=== PATIENT | male | born 1945 | race Caucasian/White ===

== ENCOUNTER 2017-10-08 08:48 | Day surgery (SDC) | payer MEDICARE, OTHER, SELFPAY ==
[2017-10-08 09:03] VITALS: BP 129/73; PULSE 77; RESP 18; O2SAT 98; BMI 28.1
== END 2017-10-08 10:00 | disposition home or self-care (01) ==
LOC: EN 08:49 → AC 08:50
PROVIDERS: Family Provider Family Medicine; PCP Family Medicine; Visit Provider Surgery
PROC: F00ZJWZ Instrumental Swallowing and Oral Function Assessment using Swallowing Equipment (ICD-10-PCS; CPT 43235; principal; 2017-10-08 08:55)
DX: K21.9 Gastro-esophageal reflux disease without esophagitis (principal); I10 Essential (primary) hypertension; I44.1 Atrioventricular block, second degree; Z95.0 Presence of cardiac pacemaker; Z79.82 Long term (current) use of aspirin; Z79.899 Other long term (current) drug therapy
CPT/HCPCS: 91010

== ENCOUNTER 2017-10-23 06:26 | Day surgery (SDC) | payer MEDICARE, OTHER, SELFPAY ==
[2017-10-23] VITALS (7 sets, daily range): BP systolic 115–128; BP diastolic 70–81; PULSE 62–70; RESP 16; TEMP 35.9–36.4; O2SAT 98–100; BMI 28.1
--- NOTE | 2017-10-23 | IMM_PTH ---
PATIENT: MOO ORTEZ LOC: EN U#:[id number] AGE/SX: 72/M ROOM: RE10/23/[address]: Dr. Richie Tan MD : 1945 BED: DIS: 10/23/2017 SPEC #: [id number] RECD: 10/26/17 11:42 STATUS: VIVEK RELizz #: [id number] ELOINA: 10/23/17 00:[address]: Richie Tan DEPT: IMMUNOHISTOCHEMISTRY RECD BY: Sydnie Echeverria ENTERED: 10/26/17 11:42 SP TYPE: IMMUNO OTHR DR: Dr. Joaquin Grady MD Tissues: B - Stomach, NOS Procedures: H Pylori (initial) PHYSICIAN & INSTITUTION [place] [id number] SPECIMEN INFORMATION: Tissue Source: B ? Antral biopsy Clinical Info: Screen Specimen Number: [id number] CPT code: 97097 METHODOLOGY: Deparaffinized sections of prefer/formalin-fixed tissue or PAP/DQ stained slides are incubated with monoclonal/polyclonal antibodies/oligonucleotide probes. Localization is made via biotin free immunoperoxidase method. Appropriate controls are performed and reacted as expected. Results on target cell population are indicated in the following table: RESULTS: ANTIBODY / CLONE RESULT Block B H Pylori (polyclonal) negative These tests were developed and their performance characteristics determined by [facility]. They may not have been cleared or approved by the U.S. Food and Drug Administration. The FDA has determined that such clearance or approval is not necessary. INTERPRETATION: B. Antral biopsy: Negative for Helicobacter pylori organisms. AM:puma 10/27/17
--- NOTE | 2017-10-23 07:43 | EGD_PTH ---
PATIENT: MOO ORTEZ LOC: EN U#:[id number] AGE/SX: 72/M ROOM: RE10/23/[address]: Dr. Richie Tan MD : 1945 BED: DIS: 10/23/2017 SPEC #: [id number] RECD: 10/23/17 11:11 STATUS: VIVEK FRANNIE #: [id number] ELOINA: 10/23/17 07:[address]: Richie Tan DEPT: SURGICAL PATHOLOGY RECD BY: Bryan Mack ENTERED: 10/23/17 12:15 SP TYPE: EGD BIOPSY OT DR: Dr. Joaquin Grady MD Tissues: A - Duodenum, NOS B - Gastric mucous membrane C - Gastric mucous membrane Procedures: Special Stain Group II Surgery Specimen Level IV Alcian Blue/PAS (control) HEADER OPERATION: EGD PRE-OP DIAGNOSIS: Screen TISSUE SUBMITTED: A ? Duodenal biopsy, B ? Antral biopsy, C ? Biopsy GE junction MICROSCOPIC DIAGNOSIS A. Duodenum, biopsy: No pathologic diagnosis. B. Gastric antrum, biopsy: Gastritis. C. Gastroesophageal junction, biopsy: Mild chronic inflammation. No evidence of intestinal metaplasia. AM:puma 10/26/17 COMMENT B. The results of immunohistochemistry for Helicobacter pylori will be reported separately ([id number]). C. Alcian blue/PAS stain with matched control supports the above diagnosis. MICROSCOPIC DESCRIPTION Slides are reviewed. B. Sections show small collections and groups of plasma cells in the mucosa. Active inflammation is not present. These findings are consistent with mild chronic gastritis. GROSS DESCRIPTION A - Received in fixative is one container labeled with the patient's name and designated duodenal biopsy. The specimen consists of two irregular fragments of light mendiola soft tissue that in aggregate measure 0.3 x 0.2 x 0.1 cm. The specimen is totally submitted in one cassette. B - Received in fixative is one container labeled with the patient's name and designated antral biopsy. The specimen consists of one irregular fragment of light mendiola soft tissue that measures 0.3 x 0.3 x 0.1 cm. The specimen is totally submitted in one cassette. C - Received in fixative is one container labeled with the patient's name and designated GE junction biopsy. The specimen consists of one irregular fragment of light mendiola soft tissue that measures 0.5 x 0.2 x 0.1 cm. The specimen is totally submitted in one cassette. / AM:puma 10/23/17 TC:3 CPT: 75105 x3, 48995
--- NOTE | 2017-10-23 08:14 | OP.PCM_ITS ---
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 Hiatal hernia. Schatzki ring. Antral gastritis Surgery/Procedure Performed:: Esophagogastroduodenoscopy with biopsies and hydrostatic dilatation and savory over the wire blue dilator dilatation Description of Surgical Findings:: Informed consent was obtained. 72-year-old gentleman was taken to the endoscopy suite. His oropharynx anesthetized with Cetacaine. He was placed in a left lateral decubitus position. Monitored anesthesia care was provided. Under direct utilization flexible gastroscope was inserted in the esophageal inlet. Proximal mid distal esophagus initially did not appear remarkable however in the distal esophagus at about 36-37 cm there appeared to be relative spasm or narrowing of the distal esophagus. Did not see any mucosal abnormalities. Once past that area there is evidence of a small hiatal hernia with findings suggesting reflux and a Schatzki ring. The scope was advanced into the stomach there was some mild erythema of the antrum. The scope was advanced into the duodenum. The duodenal mucosa appeared normal. Biopsies were obtained of the duodenum. The scope was withdrawn back into the stomach retroflexed. The EG junction and cardia inspected. A small hiatal hernia noted. Antral biopsy was obtained. The scope was withdrawn to the distal esophagus were photographs were obtained within the small hiatal hernia of the Schatzki ring. I took a biopsy of the ring. I then placed a 18 mm maximum dimension hydrostatic balloon. That balloon was inflated however it did not touch the boswell at the level of the Schatzki ring. I then removed that balloon. I inserted a wire under direct visitation in the stomach. I placed a 46 Turkmen and then a 48 Turkmen savory type blue dilator over the wire. On each pass of the 46 and the 48 I reinserted the gastroscope assuring no trauma. At the completion of that the area of relative spasm or or stricturing of the distal esophagus appeared not significantly different. There was scar tissue seen. Impression was that there is possibly extrinsic compression or spasm. I have elected to cease the intervention at this time to assess for patient postintervention symptoms. Devices were removed the patient tolerated procedure well there were no apparent complications. Impression findings suggest a distal esophageal spasm or extrinsic compression with a small hiatal hernia and reflux esophagitis and Schatzki ring. Antral gastritis. Biopsy results are pending. The patient will return the office in 10 days time. He has had esophageal manometry suggesting a relative area of narrowing or stricturing in the distal esophagus similar to what was seen on today's endoscopy although it did not appear to be a fixed defect. Further tertiary referral will be made if indicated. Cc: Dr. COURTNEY Grady Scope was inserted 0740. Procedure was completed at 0802. Richie Tan M.D., F.A.C.S. Type of Anesthesia:: MAC
== END 2017-10-23 09:05 | disposition home or self-care (01) ==
LOC: EN 06:27 → AC 06:28
PROVIDERS: Family Provider Family Medicine; PCP Family Medicine; Visit Provider Surgery
PROC: 0DJ08ZZ Inspection of Upper Intestinal Tract, Via Natural or Artificial Opening Endoscopic (ICD-10-PCS; CPT 43235; principal; 2017-10-23 07:25)
DX: K22.2 Esophageal obstruction (principal); K21.0 Gastro-esophageal reflux disease with esophagitis; K44.9 Diaphragmatic hernia without obstruction or gangrene; K29.70 Gastritis, unspecified, without bleeding; M19.90 Unspecified osteoarthritis, unspecified site; I10 Essential (primary) hypertension; I44.1 Atrioventricular block, second degree; I43 Cardiomyopathy in diseases classified elsewhere; K58.9 Irritable bowel syndrome, unspecified; Z86.69 Personal history of other diseases of the nervous system and sense organs; Z95.0 Presence of cardiac pacemaker; Z79.82 Long term (current) use of aspirin; Z79.899 Other long term (current) drug therapy
CPT/HCPCS: 43239; 43248; 43249; 88305; 88313; 88342; J7120; C1769

== ENCOUNTER → 2018-04-12 11:53 | Outpatient (CLI) | payer MEDICARE, OTHER, SELFPAY ==
--- NOTE | 2018-04-12 12:02 | RAD_ITS ---
STUDY: X-RAY - CERVICAL SPINE REASON FOR EXAM: Male, 73 years old. Neck pain and stiffness TECHNIQUE: 5 view(s) of the cervical spine were obtained. COMPARISON: None FINDINGS: Normal anterior atlantoaxial articulation. Normal odontoid process. There is straightening of the normal cervical lordosis. There is multi-level endplate spondylosis. There is multi-level degenerative disc disease with multilevel disc space narrowing. There is multi-level osseous foraminal stenosis. The soft tissue structures are unremarkable. RAD/Cerv Spine 4 or 5 Views IMPRESSION: Multilevel degenerative changes, no demonstrated fracture or suspicious osseous Electronically Signed: Vikram Ramirez MD at 17:50 EDT , Service support ,
== END ==
PROVIDERS: Family Provider Family Medicine; PCP Family Medicine; Visit Provider Family Medicine
DX: M54.2 Cervicalgia (principal)
CPT/HCPCS: 72050

== ENCOUNTER → 2018-05-13 09:42 | Outpatient (CLI) | payer MEDICARE, OTHER, SELFPAY ==
[2018-05-13 10:51] LABS: Anion Gap 8 (5-15); BUN 18 mg/dL (7-18); BUN/Creat Ratio 21.1 RATIO (10-20); Calcium,Total 8.9 mg/dL (8.5-10.1); Chloride 104 mmol/L (98-107); Cholesterol 190 mg/dL (200); Creatinine, Serum 0.86 mg/dL (0.70-1.30); EST Glomerular Filtration Rate 94 mL/min (>60); Est Glom Filt Rate - Afr Amer 113 mL/min (>60); Glucose 97 mg/dL (74-106); High Density Lipoprotein 52 mg/dL; PSA,Total - Annual Screen 1.94 ng/mL (0.00-4.00); Potassium 4.1 mmol/L (3.5-5.1); Sodium Level 140 mmol/L (136-145); Triglycerides 82 mg/dL; Very Low Density Lipoprotein 16 mg/dL (5-40)
== END ==
PROVIDERS: Family Provider Family Medicine; PCP Family Medicine; Visit Provider Family Medicine
DX: I10 Essential (primary) hypertension (principal); E78.00 Pure hypercholesterolemia, unspecified; Z12.5 Encounter for screening for malignant neoplasm of prostate
CPT/HCPCS: 36415; 80048; 80061; 84153; G0103

== ENCOUNTER 2018-07-09 07:54 | Day surgery (SDC) | payer MEDICARE, OTHER, SELFPAY ==
[2018-07-09] VITALS (9 sets, daily range): BP systolic 93–147; BP diastolic 56–122; PULSE 64–72; RESP 14–16; TEMP 36–36.4; O2SAT 98–100; BMI 27.4
--- NOTE | 2018-07-09 | COLBX_PTH ---
PATIENT: MOO ORTEZ LOC: EN U#:[id number] AGE/SX: 73/M ROOM: RE07/09/[address]: Dr. Richie Tan MD : 1945 BED: DIS: 07/09/2018 SPEC #: [id number] RECD: 07/09/18 13:11 STATUS: VIVEK FRANNIE #: [id number] ELOINA: 07/09/18 00:[address]: Richie Tan DEPT: SURGICAL PATHOLOGY RECD BY: Zach Hatch ENTERED: 07/09/18 13:12 SP TYPE: COLON BX OT DR: Dr. Joaquin Grady MD Tissues: Descending colon Procedures: Surgery Specimen Level IV HEADER OPERATION: Colonoscopy PRE-OP DIAGNOSIS: Screening TISSUE SUBMITTED: Descending colon polyp biopsy MICROSCOPIC DIAGNOSIS Descending colon polyp, biopsy: Fragments of tubular adenoma. SJ:puma 07/12/18 MICROSCOPIC DESCRIPTION Slides are reviewed. GROSS DESCRIPTION Received in fixative is one container labeled with the patient's name and designated descending colon polyp biopsy. The specimen consists of multiple irregular fragments of light mendiola soft tissue that in aggregate measure 1 x 0.4 x 0.1 cm. The specimen is totally submitted in one cassette. / SJ:puma 07/09/18 TC:1 CPT: 99590
--- NOTE | 2018-07-09 09:20 | PCM.HP.STD ---
History of Present Illness Date of Admission: 07/09/18 The patient is a 73 year old M screening for intestinal malignancy. His most recent colonoscopy was 10 years ago. He denies bright red blood per rectum or melena. No abdominal pain. He has no family history of colon cancer. He does have a pacemaker in place. It has been there for 3 years. He typically takes a low-dose aspirin. He has not been on aspirin for 5 days. Past Medical History Past Medical History (Chronic Problems): Chronic Problems (Last Reviewed 10/30/17 @ 10:05 by Celia Diaz) Sinus bradycardia (Chronic) Hypertension (Chronic) Mobitz type II atrioventricular block (Chronic) Cardiac pacemaker in situ (Chronic) Implanted 07/13/15 @ [place], [place] per Dr. 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 classified elsewhere (Chronic) I43 Allergies No Known Allergies Allergy (Verified 07/07/18 09:59) Home Medications: Ambulatory Orders Medication Instructions Recorded Aspirin [Aspirin, Baby] 81 mg PO DAILY@0800 08/05/15 ALPRAZolam [Xanax] 0.5 mg PO QHS 12/07/15 Carvedilol [Coreg] 6.25 mg PO BID 12/07/15 Cholecalciferol (VIT D3) [Vitamin 1,000 unit PO DAILY 12/07/15 D] Multivitamins,Ther W-Minerals 1 tab PO DAILY 12/07/15 [Multivitamin With Minerals] Tamsulosin HCl [Flomax] 0.4 mg PO QHS 10/21/17 losartan 25 mg tablet 25 mg PO QDAY #90 tab 02/10/18 Ranitidine [Zantac] 150 mg PO DAILY 07/07/18 Surgical History: Surgical History (Last Updated 10/30/17 @ 10:06 by Celia Diaz) History of esophagogastroduodenoscopy (EGD) (Acute) Z98.890 S/P hernia surgery (Acute) Z98.890, Z87.19 x 2 Cardiac pacemaker in situ (Chronic) Z95.0 Implanted 07/13/15 @ [place], [place] per Dr. Lr for Mobitz type II block Smoking Status: Never smoker Review of Systems Constitutional: Denies: Anorexia HEENT: Denies: Difficulty Swallowing Cardiovascular: Denies: Chest Pain Respiratory: Denies: Cough Gastrointestinal: Denies: Abdominal Pain Endocrine: Denies: Change in Body Habitus VTE Information - Inpt Only VTE Present on Admission: No - Physical Exam General: Alert, Oriented x3, Cooperative, No apparent distress HEENT: Atraumatic Oral: Moist Mucosa Neck: Supple Lungs: Clear to auscultation Cardiovascular: Regular rate, Regular Rhythm Abdomen: Bowel Sounds Present, Soft, Non Tender Extremities: No Calf Tenderness Skin: No rashes Musculoskeletal: No Tenderness to Palpation of Joints or Extremities Neurological: Cranial nerves II-XII grossly intact Psych/Mental Status: Normal Affect Vital Signs Temp Pulse Resp BP Pulse Ox 97.3 F L 72 14 119/68 99 07/09/18 08:24 07/09/18 08:24 07/09/18 08:24 07/09/18 08:24 07/09/18 08:24 Oxygen Delivery Method Room Air Weight: 180 lb 12.465 oz Body Mass Index (BMI) 27.4 Assessment/Plan All Active Problems (Last Updated 10/30/17 @ 10:06 by Celia Diaz) Schatzki's ring of distal esophagus (Acute) History of esophagogastroduodenoscopy (EGD) (Acute) Orantes's palsy (Acute) S/P hernia surgery (Acute) Plan to proceed with a colonoscopy with possible biopsy or polypectomy is indicated. He has had an opportunity to ask and have questions answered. We will proceed as noted. He presents via our open access program today. Richie Tan M.D., F.A.C.S.
--- NOTE | 2018-07-09 09:56 | OP.ENDO_ITS ---
Patient Name: Jonah Horowitz Procedure Date: 07/09/2018 9:23 AM Date of : 1945 Age: 73 Procedure: Colonoscopy Indications: Screening for colorectal malignant neoplasm Providers: Richie Tan MD Referring MD: Richie Tan MD Medicines: Midazolam 3.5 mg IV, Meperidine 75 mg IV Patient Profile: Last Colonoscopy: 10 years ago. Complications: No immediate complications. Procedure: Pre-Anesthesia Assessment: - Prior to the procedure, a History and Physical was performed, and patient medications and allergies were reviewed. The patient's tolerance of previous anesthesia was also reviewed. The risks and benefits of the procedure and the sedation options and risks were discussed with the patient. All questions were answered, and informed consent was obtained. Prior Anticoagulants: The patient has taken aspirin, last dose was day of procedure. ASA Grade Assessment: II - A patient with mild systemic disease. After reviewing the risks and benefits, the patient was deemed in satisfactory condition to undergo the procedure. After I obtained informed consent, the scope was passed under direct vision. Throughout the procedure, the patient's blood pressure, pulse, and oxygen saturations were monitored continuously. The pediatric colonoscope was introduced through the anus and advanced to the cecum, identified by appendiceal orifice and ileocecal valve. The colonoscopy was performed without difficulty. The patient tolerated the procedure well. The quality of the bowel preparation was good. The ileocecal valve was photographed. Moderate Sedation: Moderate (conscious) sedation was personally administered by the endoscopist. The following parameters were monitored: oxygen saturation, heart rate, blood pressure, and response to care. Total physician intraservice time was 15 minutes. Scope In: 9:39:25 AM Scope Withdrawal Time 0 hours 7 minutes 51 seconds Scope Out: 9:50:24 AM Total Procedure Duration Time 0 hours 10 minutes 59 seconds Findings: The digital rectal exam findings include internal hemorrhoids that prolapse with straining, but require manual replacement into the anal canal (Grade III) and enlarged prostate. A 5 mm polyp was found in the descending colon. The polyp was sessile. The polyp was removed with a cold biopsy forceps. Resection and retrieval were complete. Multiple diverticula were found in the sigmoid colon. The exam was otherwise without abnormality. Impression: - Internal hemorrhoids that prolapse with straining, but require manual replacement into the anal canal (Grade III) and enlarged prostate found on digital rectal exam. - One 5 mm polyp in the descending colon, removed with a cold biopsy forceps. Resected and retrieved. - Diverticulosis in the sigmoid colon. - The examination was otherwise normal. Recommendation: - Discharge patient to home. - Resume previous diet. - Continue present medications. - Repeat colonoscopy in 5 years for surveillance. - Telephone my office for pathology results in 1 week. Procedure Code(s): --- Professional --- 92886, Colonoscopy, flexible; with biopsy, single or multiple 42418, 59, Moderate sedation services provided by the same physician or other qualified health home health care provider performing the diagnostic or therapeutic service that the sedation supports, requiring the presence of an independent trained observer to assist in the monitoring of the patient's level of consciousness and physiological status; initial 15 minutes of intraservice time, patient age 5 years or older Diagnosis Code(s): --- Professional --- Z12.11, Encounter for screening for malignant neoplasm of colon D12.4, Benign neoplasm of descending colon K64.2, Third degree hemorrhoids N40.0, Benign prostatic hyperplasia without lower urinary tract symptoms K57.30, Diverticulosis of large intestine without perforation or abscess without bleeding CPT copyright 2017 [employer]. All rights reserved. The codes documented in this report are preliminary and upon medical biller/coder review may be revised to meet current compliance requirements. Richie Tan MD 07/09/2018 9:55:47 AM This report has been signed electronically. Number of Addenda: 0 Note Initiated On: 07/09/2018 9:23 AM
== END 2018-07-09 11:05 | disposition home or self-care (01) ==
LOC: EN 07:54 → AC 07:57
PROVIDERS: Family Provider Family Medicine; PCP Family Medicine; Referring Provider Surgery; Visit Provider Surgery
PROC: 0DJD8ZZ Inspection of Lower Intestinal Tract, Via Natural or Artificial Opening Endoscopic (ICD-10-PCS; CPT 45378; principal; 2018-07-09 08:55)
DX: Z12.11 Encounter for screening for malignant neoplasm of colon (principal); D12.4 Benign neoplasm of descending colon; K64.2 Third degree hemorrhoids; K57.30 Diverticulosis of large intestine without perforation or abscess without bleeding; N40.0 Benign prostatic hyperplasia without lower urinary tract symptoms; K22.2 Esophageal obstruction; I10 Essential (primary) hypertension; I44.1 Atrioventricular block, second degree; I42.9 Cardiomyopathy, unspecified; Z95.0 Presence of cardiac pacemaker; Z79.82 Long term (current) use of aspirin; Z79.899 Other long term (current) drug therapy
CPT/HCPCS: 45380; 88305; 99152; 99153; J7120

== ENCOUNTER → 2018-08-26 20:17 | Outpatient (CLI) | payer MEDICARE, OTHER, SELFPAY ==
[2018-07-28 10:04] VITALS: BMI 28.1
== END ==
PROVIDERS: Family Provider Family Medicine; PCP Family Medicine; Visit Provider Family Medicine
DX: G47.00 Insomnia, unspecified (principal); G47.9 Sleep disorder, unspecified
CPT/HCPCS: 95810

== ENCOUNTER → 2018-09-30 20:32 | Outpatient (CLI) | payer MEDICARE, OTHER, SELFPAY ==
[2018-09-09 11:22] VITALS: BMI 28.1
[2018-09-30 11:22] VITALS: BMI 28.5
== END ==
PROVIDERS: Family Provider Family Medicine; PCP Family Medicine; Referring Provider Nurse Practitioner Acute Care; Visit Provider Nurse Practitioner Acute Care
DX: G47.33 Obstructive sleep apnea (adult) (pediatric) (principal)
CPT/HCPCS: 95811

== ENCOUNTER → 2018-12-31 | Outpatient (CLI) | payer MEDICARE, OTHER, SELFPAY ==
[2018-11-05 10:34] VITALS: BMI 28.5
[2018-12-23 10:54] VITALS: BMI 28.1
--- NOTE | 2018-12-31 07:00 | RAD_ITS ---
CLINICAL HISTORY: Male, 73 years old. Chronic knee pain. PROCEDURE: ARTHROGRAM - LEFT KNEE FLUOROSCOPY TIME (if supplied): (0:50) minutes/seconds Injection Information: 10 cc of dilute MRI contrast. Number of images obtained: 1 TECHNIQUE: (All elements of maximal sterile barrier technique followed, including US elements as applicable) The procedure as well as the benefits and possible complications including infection and bleeding were explained to the patient. Informed consent was obtained. The overlying skin was prepped and draped in the usual sterile fashion. Under direct fluoroscopic guidance, a 22-gauge spinal needle was placed into the knee joint. 2 cc of Isovue-300 was injected for confirmation. Following this, 10 cc of dilute Magnevist was injected. A CT arthrogram will be obtained. The patient tolerated the procedure well. RAD/Arthrogram Hip IMPRESSION: Successful left knee arthrogram for CT examination. Electronically Signed: Jerson Bhatt, at 13:56 EDT , Service support ,
--- NOTE | 2018-12-31 10:00 | CT_ITS ---
STUDY: CT LEFT KNEE WITH CONTRAST REASON FOR EXAM: Male, 73 years old. Left knee arthrogram. Pain. RADIATION DOSAGE (If Supplied By Facility): CTDIvol = ( 15.35 ) mGy, DLP = ( 438.19 ) mGycm TECHNIQUE: Transaxial CT imaging of the knee was performed post contrast administration. The examination was performed with intravenous administration of 10ML Intra-articular Other. Individualized dose optimization techniques were used for this CT. COMPARISON: None. FINDINGS: Normal medial femoral condyle and medial tibial plateau. There is preservation of the articular joint space of the medial knee compartment. No evidence of contrast extension into the bilateral menisci to suggest underlying meniscal tear. The outline of the ACL and PCL are noted and intact, however there are subchondral cysts at the proximal attachment of the ACL tendon near the medial intracarpal enteric region consistent with likely previous injury. Normal lateral femoral condyle and lateral tibial plateau. There is preservation of the articular joint space of the lateral knee compartment. Normal proximal tibiofibular articulation. Intra-articular contrast within the joint space is present. There is no demonstrated abnormal enhancement. The quadriceps tendon is grossly normal. The patellar tendon is grossly normal. Normal Hoffa's fat pad. The soft tissues are unremarkable. CT/Extremity Lower WITH Contrast IMPRESSION: The arthrogram demonstrating no evidence of underlying meniscal tear with extension of contrast into the intrasubstance. The outline of the ACL tendon is normal in appearance. No significant joint space loss or osteophyte formation is present. Subchondral cysts near the ACL proximal attachment with previous injury not excluded, clinically correlate. Electronically Signed: Alvaro Price DO at 9:25 EDT , Service support ,
== END | disposition home or self-care (01) ==
LOC: RAD 09:50
PROVIDERS: Family Provider Family Medicine; PCP Family Medicine; Referring Provider Physician Assistant Surgical; Visit Provider Physician Assistant Surgical
DX: M17.12 Unilateral primary osteoarthritis, left knee (principal); M25.562 Pain in left knee
CPT/HCPCS: 27093; 27369; 73525; 73580; 73701; A9577; Q9967

== ENCOUNTER → 2019-04-18 | Outpatient (CLI) | payer MEDICARE, OTHER, SELFPAY ==
[2019-03-24 09:47] VITALS: BMI 28.1
[2019-04-18 12:28] LABS: Hematocrit 38.4 % (40-54); Hemoglobin 12.5 g/dL (13.0-16.5); Mean Corp Hgb Conc 32.6 g/dL (32-36); Mean Corpuscular Hgb 31.1 pg (27.0-32.0); Mean Corpuscular Volume 95.5 fL (80-94); Red Blood Count 4.02 M/mm3 (4.6-6.2); White Blood Count 4.5 K/mm3 (4.4-11.0)
[2019-04-18 12:29] LABS: Absolute Neutrophil Count 2.6 X10^3/uL (2.0-7.7); Basophil# 0.04 X10^3/uL; Basophil% 0.9 % (0-1); Eosinophil# 0.13 X10^3/uL; Eosinophils% 2.9 % (0-5); Lymphocyte % 26.5 % (19-41); Mean Platelet Vol. 11.1 fl (6.2-12.0); Monocyte# 0.58 X10^3/uL; Monocyte% 12.8 % (0-10); NRBC Flagged by Analyzer 0 % (0-5); Neutrophil # 2.57 X10^3/uL (2.7-7.7); Neutrophil % 56.7 % (47-70); Platelet Count 319 K/mm3 (150-450); RBC Distribution Width CV 14.9 % (11.6-14.6); RBC Distribution Width SD 53.1 fl (35.1-43.9)
[2019-04-18 13:01] LABS: Anion Gap 4 (5-15); BUN 14 mg/dL (7-18); BUN/Creat Ratio 17.8 RATIO (10-20); Calcium,Total 8.9 mg/dL (8.5-10.1); Chloride 105 mmol/L (98-107); Cholesterol 185 mg/dL (200); Creatinine, Serum 0.79 mg/dL (0.70-1.30); EST Glomerular Filtration Rate 103 mL/min (>60); Est Glom Filt Rate - Afr Amer 124 mL/min (>60); Glucose 105 mg/dL (74-106); High Density Lipoprotein 44 mg/dL; Potassium 4.4 mmol/L (3.5-5.1); Sodium Level 138 mmol/L (136-145); Triglycerides 83 mg/dL; Very Low Density Lipoprotein 17 mg/dL (5-40)
== END | disposition home or self-care (01) ==
LOC: MFPLAB 11:01
PROVIDERS: Family Provider Family Medicine; PCP Family Medicine; Visit Provider Family Medicine
DX: I10 Essential (primary) hypertension (principal); N49.0 Inflammatory disorders of seminal vesicle
CPT/HCPCS: 36415; 80048; 80061; 85025

== ENCOUNTER → 2019-08-01 15:37 | Outpatient (CLI) | payer MEDICARE, OTHER, SELFPAY ==
[2019-03-24 09:47] VITALS: BMI 28.1
== END ==
PROVIDERS: Family Provider Family Medicine; PCP Family Medicine; Visit Provider Family Medicine
DX: G47.00 Insomnia, unspecified (principal)

== ENCOUNTER → 2019-08-03 11:40 | Outpatient (CLI) | payer MEDICARE, OTHER, SELFPAY ==
[2019-03-24 09:47] VITALS: BMI 28.1
[2019-08-03 15:37] LABS: Amphetamine Urine VISTA NEGATIVE (<1000 ng/mL); Barbiturate Urine VISTA NEGATIVE (< 200 ng/mL); Benzodiazepine Urine VISTA POSITIVE (< 200 ng/mL); Cocaine Urine VISTA NEGATIVE (< 300 ng/mL); Ecstacy Urine VISTA NEGATIVE (< 500 ng/mL); Methadone Urine VISTA NEGATIVE (< 300 ng/mL); PCP Urine VISTA NEGATIVE (< 25 ng/mL); THC Urine VISTA NEGATIVE (< 50 ng/mL); Vista UDS pH Range 7
== END ==
PROVIDERS: Family Provider Family Medicine; PCP Family Medicine; Referring Provider Family Medicine; Visit Provider Family Medicine
DX: G47.00 Insomnia, unspecified (principal)
CPT/HCPCS: 80307; 80346

== ENCOUNTER → 2019-09-23 16:21 | Outpatient (CLI) | payer MEDICARE, OTHER, SELFPAY ==
[2019-03-24 09:47] VITALS: BMI 28.1
--- NOTE | 2019-09-23 16:29 | CT_ITS ---
STUDY: CT LUMBAR SPINE WITHOUT CONTRAST REASON FOR EXAM: Male, 74 years old. Back pain RADIATION DOSAGE (If Supplied By Facility): CTDIvol = ( 23.32 ) mGy, DLP = ( 934.21 ) mGycm TECHNIQUE: CT of the lumbar spine was performed without contrast. Sagittal and coronal images were reconstructed. Individualized dose optimization techniques were used for this CT. COMPARISON: None FINDINGS: Examination is moderately degraded due to patient''s elevated body habitus resulting in severe image noise due to soft tissue attenuation. Osseous assessment is moderately degraded. Soft tissue assessment is severely degraded and canal contents cannot be assessed reliably. Pacemaker leads are seen in the heart. Lumbar spine is aligned. There are multilevel endplate degenerative changes and limbus L4 vertebra variant. There are no fractures or osseous destructive lesions. Mineralization is normal. Paraspinous soft tissues are intact. SI joints are normal. There is sigmoid diverticulosis. There is left inguinal hernia repair. There is probably multilevel moderate thecal sac stenosis. There are multilevel bilateral moderate foraminal stenoses. CT/Spine Lumbar without Contrast IMPRESSION: 1. Technical limitations to the scan due to elevated body habitus. 2. No acute osseous findings. 3. Spondylosis. 4. Probable multilevel moderate thecal sac stenosis. Electronically Signed: Izabela Price, at 18:55 EST Tel , Service support ,
== END ==
PROVIDERS: Family Provider Family Medicine; PCP Family Medicine; Referring Provider Family Medicine; Visit Provider Family Medicine
DX: M54.5 Low back pain (principal)
CPT/HCPCS: 72131

== ENCOUNTER → 2020-02-08 15:56 | Outpatient (CLI) | payer MEDICARE, OTHER, SELFPAY ==
[2019-11-24 10:41] VITALS: BMI 28.3
--- NOTE | 2020-02-08 16:00 | RAD_ITS ---
STUDY: X-RAY - RIGHT FOOT CLINICAL: Male, 75 years old. Right foot pain, bottom of foot by 1st and 2nd toes TECHNIQUE: 3 view(s) of the foot. COMPARISON: None. FINDINGS: There is an enthesophyte involving the posterior superior calcaneus at the site of insertion of the Achilles tendon. Small plantar spur. Normal visualized subtalar, talonavicular, calcaneocuboid, tarsal and tarsometatarsal articulations. Normal metatarsi. There is degenerative arthrosis of the metatarsophalangeal joint of the hallux . Spur formation is seen along the fibular aspect of the proximal phalanx of the great toe. Normal tibial and fibular sesamoid bones. Normal interphalangeal joint of the great toe. Normal phalanges of the great toe. Normal second through fifth metatarsophalangeal joints. Normal interphalangeal joints and phalanges of the lesser toes. The soft tissue structures are unremarkable. RAD/Foot min 3 Views IMPRESSION: Degenerative changes at the first metatarsophalangeal joint with degenerative spur formation at the base of the proximal phalanx of the great toe. Electronically Signed: Jerson Bhatt, at 15:21 EDT , Service support ,
== END ==
PROVIDERS: PCP Family Medicine; Referring Provider Podiatrist; Visit Provider Podiatrist
DX: M77.9 Enthesopathy, unspecified (principal)
CPT/HCPCS: 73630

== ENCOUNTER → 2020-03-05 11:46 | Outpatient (CLI) | payer MEDICARE, OTHER, SELFPAY ==
[2019-11-24 10:41] VITALS: BMI 28.3
[2020-03-05 15:58] LABS: Absolute Lymphocyte Count 1.23 X10^3/uL (0.83-4.51); Absolute Neutrophil Count 2.9 X10^3/uL (2.0-7.7); Basophil# 0.03 X10^3/uL; Basophil% 0.6 % (0-1); Eosinophil# 0.09 X10^3/uL; Eosinophils% 1.8 % (0-5); Hematocrit 41.6 % (40-54); Hemoglobin 13.2 g/dL (13.0-16.5); Lymphocyte # 1.23 X10^3/ul (4.0); Lymphocyte % 24.5 % (19-41); Mean Corp Hgb Conc 31.7 g/dL (32-36); Mean Corpuscular Hgb 31.4 pg (27.0-32.0); Mean Platelet Vol. 11.6 fl (6.2-12.0); Monocyte# 0.73 X10^3/uL; Monocyte% 14.5 % (0-10); NRBC Flagged by Analyzer 0 % (0-5); Neutrophil # 2.94 X10^3/uL (2.7-7.7); Neutrophil % 58.4 % (47-70); Platelet Count 218 K/mm3 (150-450); RBC Distribution Width CV 13.2 % (11.6-14.6); RBC Distribution Width SD 48.1 fl (35.1-43.9)
[2020-03-05 16:22] LABS: Anion Gap 4 (5-15); BUN 16 mg/dL (7-18); BUN/Creat Ratio 20.6 RATIO (10-20); Chloride 104 mmol/L (98-107); Creatinine, Serum 0.78 mg/dL (0.70-1.30); EST Glomerular Filtration Rate 104 mL/min (>60); Est Glom Filt Rate - Afr Amer 126 mL/min (>60); Glucose 76 mg/dL (74-106); Potassium 4.3 mmol/L (3.5-5.1); Sodium Level 141 mmol/L (136-145); T4 Free Direct 0.96 ng/dL (0.76-1.46); Thyroid Stim Hormone (TSH) 2.03 uIU/mL (0.358-3.74)
[2020-06-01 13:04] LABS: ALB/GLOB Ratio 1.1 RATIO (0.9-2.4); AST(SGOT) 20 U/L (15-37); Alanine Aminotransfer ALT/SGPT 22 U/L (16-61); Albumin, Serum 3.7 g/dL (3.2-5.0); Alkaline Phosphatase 99 U/L (45-117); Anion Gap 6 (5-15); BUN 12 mg/dL (7-18); BUN/Creat Ratio 15.9 RATIO (10-20); Calcium,Total 8.6 mg/dL (8.5-10.1); Chloride 105 mmol/L (98-107); Cholesterol 192 mg/dL (200); Creatinine, Serum 0.76 mg/dL (0.70-1.30); EST Glomerular Filtration Rate 107 mL/min (>60); Est Glom Filt Rate - Afr Amer 130 mL/min (>60); Globulin 3.5 g/dL (2.2-4.2); Glucose 90 mg/dL (74-106); High Density Lipoprotein 57 mg/dL; PSA,Total - Annual Screen 2.32 ng/mL (0.00-4.00); Potassium 4.1 mmol/L (3.5-5.1); Protein, Total 7.2 g/dL (6.4-8.2); Sodium Level 142 mmol/L (136-145); Triglycerides 59 mg/dL; Very Low Density Lipoprotein 12 mg/dL (5-40)
== END ==
PROVIDERS: PCP Family Medicine; Referring Provider Nurse Practitioner Family; Visit Provider Nurse Practitioner Family
DX: R53.83 Other fatigue (principal)
CPT/HCPCS: 36415; 80048; 80053; 80061; 84153; 84439; 84443; 85025; G0103

== ENCOUNTER → 2020-06-01 | Outpatient (CLI) | payer MEDICARE, OTHER, SELFPAY ==
[2020-03-22 10:40] VITALS: BMI 28.1
[2020-06-01 12:33] LABS: Erythrocyte Sedimentation Rate 5 mm/hr (0-20)
[2020-06-01 12:36] LABS: CRP < 2.90 mg/L (0.0-3.0); Rheumatoid Factor < 10.0 IU/mL (<15)
[2020-06-04 20:55] LABS: ANTINUCLEAR ANTIBODIES DIRECT Negative (Negative)
== END | disposition home or self-care (01) ==
LOC: MTLAB 09:58
PROVIDERS: PCP Family Medicine; Referring Provider Family Medicine; Visit Provider Family Medicine
DX: M25.549 Pain in joints of unspecified hand (principal)
CPT/HCPCS: 36415; 85652; 86038; 86140; 86431

== ENCOUNTER → 2020-07-23 14:48 | Outpatient (CLI) | payer MEDICARE, OTHER, SELFPAY ==
[2020-03-22 10:40] VITALS: BMI 28.1
--- NOTE | 2020-07-23 15:07 | RAD_ITS ---
STUDY: X-RAY RIGHT FOOT, 1 TOE REASON FOR EXAM: Male, 75 years old. right great toe pain TECHNIQUE: 3 view(s) of the toe were obtained. COMPARISON: 02/08/2020 FINDINGS: Normal visualized metatarsus. There is arthrosis of the metatarsophalangeal (M.T.P.) joint. Normal interphalangeal joints. Normal phalanges and interphalangeal joints. The soft tissue structures are unremarkable. RAD/Toe(s) Min 2 Views IMPRESSION: Mild first metatarsophalangeal joint arthrosis. Electronically Signed: Bryan Pepe MD at 15:47 EST Tel , Service support ,
--- NOTE | 2020-07-23 15:07 | RAD_ITS ---
STUDY: X-RAY - RIGHT FOOT CLINICAL: Male, 75 years old. right great toe pain TECHNIQUE: 2 view(s) of the foot. COMPARISON: 02/08/2020 FINDINGS: Normal talus, calcaneus, and tarsal bones. Normal visualized subtalar, talonavicular, calcaneocuboid, tarsal and tarsometatarsal articulations. Normal metatarsi. There is degenerative arthrosis of the metatarsophalangeal joint of the hallux . Normal tibial and fibular sesamoid bones. Normal interphalangeal joint of the great toe. Normal phalanges of the great toe. Normal second through fifth metatarsophalangeal joints. Normal interphalangeal joints and phalanges of the lesser toes. The soft tissue structures are unremarkable. RAD/Foot 2 Views IMPRESSION: Mild first metatarsophalangeal joint arthrosis. Electronically Signed: Bryan Pepe MD at 15:46 EST Tel , Service support ,
[2020-07-23 18:22] LABS: Uric Acid 4.4 mg/dL (3.5-7.2)
== END ==
PROVIDERS: PCP Family Medicine; Referring Provider Family Medicine; Visit Provider Family Medicine
DX: M79.674 Pain in right toe(s) (principal)
CPT/HCPCS: 36415; 73620; 73660; 84550

== ENCOUNTER → 2020-11-30 10:33 | Outpatient (CLI) | payer MEDICARE, OTHER, SELFPAY ==
[2020-09-27 08:56] VITALS: BMI 26.6
[2020-11-30 12:38] LABS: PSA,Total- Diagnostic 2.33 ng/mL (0.0-4.0)
== END ==
PROVIDERS: PCP Family Medicine; Referring Provider Family Medicine; Visit Provider Family Medicine
DX: R36.1 Hematospermia (principal)
CPT/HCPCS: 36415; 84153

== ENCOUNTER → 2020-12-05 11:31 | Outpatient (CLI) | payer MEDICARE, OTHER, SELFPAY ==
[2020-09-27 08:56] VITALS: BMI 26.6
[2020-12-05 12:29] LABS: Hematocrit 41.9 % (40-54); Hemoglobin 13.5 g/dL (13.0-16.5); Mean Corp Hgb Conc 32.2 g/dL (32-36); Mean Corpuscular Hgb 31.2 pg (27.0-32.0); Mean Corpuscular Volume 96.8 fL (80-94); Mean Platelet Vol. 11.1 fl (6.2-12.0); Platelet Count 213 K/mm3 (150-450); RBC Distribution Width CV 13.2 % (11.6-14.6); RBC Distribution Width SD 47.1 fl (35.1-43.9); Red Blood Count 4.33 M/mm3 (4.6-6.2); White Blood Count 5.2 K/mm3 (4.4-11.0)
[2020-12-05 13:17] LABS: Anion Gap 4 (5-15); BUN 16 mg/dL (7-18); BUN/Creat Ratio 19.7 RATIO (10-20); Calcium,Total 9.3 mg/dL (8.5-10.1); Chloride 105 mmol/L (98-107); Creatinine, Serum 0.81 mg/dL (0.70-1.30); EST Glomerular Filtration Rate 99 mL/min (>60); Est Glom Filt Rate - Afr Amer 119 mL/min (>60); Glucose 90 mg/dL (74-106); Potassium 4.2 mmol/L (3.5-5.1); Sodium Level 141 mmol/L (136-145)
== END ==
LOC: LAB.FUTURE 11:33 → LAB 13:32
PROVIDERS: PCP Family Medicine; Referring Provider Specialist; Visit Provider Specialist
DX: Z01.818 Encounter for other preprocedural examination (principal)
CPT/HCPCS: 36415; 80048; 85027

== ENCOUNTER → 2021-03-21 12:23 | Outpatient (CLI) | payer MEDICARE, OTHER, SELFPAY ==
[2020-09-27 08:56] VITALS: BMI 26.6
--- NOTE | 2021-03-21 12:28 | RAD_ITS ---
STUDY: X-RAY - LEFT ANKLE REASON FOR EXAM: Male, 76 years old. LT ANKLE SWELLING TECHNIQUE: 3 view(s) of the ankle. COMPARISON: None. FINDINGS: Normal visualized distal tibia and fibula. Normal medial and lateral malleoli. Normal tibiotalar articulation and ankle mortise. Plantar spur. The visualized subtalar, talonavicular, calcaneocuboid and tarsal articulations are normal. Soft tissue swelling. RAD/Ankle min 3 Views IMPRESSION: Soft tissue swelling. Plantar spur. Electronically Signed: Jerson Bhatt MD at 15:17 EDT , Service support ,
== END ==
PROVIDERS: PCP Family Medicine; Referring Provider Family Medicine; Visit Provider Family Medicine
DX: M25.472 Effusion, left ankle (principal)
CPT/HCPCS: 73610

== ENCOUNTER → 2021-07-20 10:08 | Outpatient (CLI) | payer MEDICARE, OTHER, SELFPAY ==
[2021-07-20 10:53] LABS: Anion Gap 1 (5-15); BUN 22 mg/dL (7-18); BUN/Creat Ratio 25.6 RATIO (10-20); Calcium,Total 9.1 mg/dL (8.5-10.1); Chloride 108 mmol/L (98-107); Creatinine, Serum 0.86 mg/dL (0.70-1.30); EST Glomerular Filtration Rate 92 mL/min (>60); Est Glom Filt Rate - Afr Amer 112 mL/min (>60); Glucose 86 mg/dL (74-106); Potassium 4.5 mmol/L (3.5-5.1); Sodium Level 140 mmol/L (136-145)
== END ==
PROVIDERS: PCP Family Medicine; Visit Provider Nurse Practitioner Family
DX: G47.33 Obstructive sleep apnea (adult) (pediatric) (principal); I10 Essential (primary) hypertension; I44.1 Atrioventricular block, second degree; I44.7 Left bundle-branch block, unspecified; I47.2 Ventricular tachycardia; I48.92 Unspecified atrial flutter; R00.1 Bradycardia, unspecified; Z95.0 Presence of cardiac pacemaker
CPT/HCPCS: 36415; 80048; 83735

== ENCOUNTER → 2021-07-24 09:50 | Outpatient (CLI) | payer MEDICARE, OTHER, SELFPAY ==
[2021-07-24 12:22] LABS: Absolute Lymphocyte Count 1.38 X10^3/uL (0.83-4.51); Absolute Neutrophil Count 2.8 X10^3/uL (2.0-7.7); Basophil# 0.06 X10^3/uL; Basophil% 1.2 % (0-1); Eosinophil# 0.23 X10^3/uL; Eosinophils% 4.5 % (0-5); Hematocrit 41.2 % (40-54); Hemoglobin 13.6 g/dL (13.0-16.5); Lymphocyte # 1.38 X10^3/ul (0.83-4.51); Mean Corpuscular Hgb 31.4 pg (27.0-32.0); Mean Corpuscular Volume 95.2 fL (80-94); Mean Platelet Vol. 11.6 fl (6.2-12.0); Monocyte# 0.62 X10^3/uL; Monocyte% 12.1 % (0-10); NRBC Flagged by Analyzer 0 % (0-5); Neutrophil # 2.82 X10^3/uL (2.7-7.7); Platelet Count 235 K/mm3 (150-450); RBC Distribution Width CV 13.7 % (11.6-14.6); RBC Distribution Width SD 48.8 fl (35.1-43.9); Red Blood Count 4.33 M/mm3 (4.6-6.2); White Blood Count 5.1 K/mm3 (4.4-11.0)
[2021-07-24 12:45] LABS: ALB/GLOB Ratio 1.1 RATIO (0.9-2.4); AST(SGOT) 25 U/L (15-37); Alanine Aminotransfer ALT/SGPT 25 U/L (16-61); Albumin, Serum 3.9 g/dL (3.2-5.0); Alkaline Phosphatase 101 U/L (45-117); Anion Gap 5 (5-15); BUN 23 mg/dL (7-18); BUN/Creat Ratio 30.6 RATIO (10-20); Calcium,Total 9.1 mg/dL (8.5-10.1); Chloride 107 mmol/L (98-107); Cholesterol 204 mg/dL (200); Creatinine, Serum 0.75 mg/dL (0.70-1.30); EST Glomerular Filtration Rate 107 mL/min (>60); Est Glom Filt Rate - Afr Amer 130 mL/min (>60); Globulin 3.5 g/dL (2.2-4.2); Glucose 97 mg/dL (74-106); High Density Lipoprotein 55 mg/dL; Potassium 4.4 mmol/L (3.5-5.1); Protein, Total 7.4 g/dL (6.4-8.2); Sodium Level 141 mmol/L (136-145); Triglycerides 83 mg/dL; Very Low Density Lipoprotein 17 mg/dL (5-40)
== END ==
PROVIDERS: PCP Family Medicine; Referring Provider Family Medicine; Visit Provider Family Medicine
DX: I10 Essential (primary) hypertension (principal)
CPT/HCPCS: 36415; 80053; 80061; 85025

== ENCOUNTER → 2021-08-02 07:20 | Outpatient (CLI) | payer MEDICARE, OTHER, SELFPAY ==
--- NOTE | 2021-08-02 09:42 | STRESSREP ---
Stress Test Report Pharmacologic myocardial perfusion stress test. 76-year-old male with a history of bradycardia arrhythmia status post pacemaker placement. Stress protocol: Resting EKG demonstrates normal sinus rhythm with ventricular pacing at 64 bpm. Resting blood pressure is 122/80 mmHg. 0.4 mg of regadenoson was infused per usual protocol followed by rapid intravenous saline flush injection continuous EKG monitoring was performed. At rest there were no ST or T wave changes noted to suggest abnormal flow reserve at peak infusion paced beats were noted. The peak blood pressure was 122/80 mmHg. Pacemaker activity was noted with no acute changes. Myocardial perfusion protocol. 11.9 mCi of technetium 99m sestamibi was injected at rest. 0.4 mg of regadenoson was infused per usual protocol. At peak infusion 34.2 mCi of technetium 99m sestamibi was injected stress images were obtained stress and rest images were reconstructed and compared in the short axis vertical long horizontal long axis. Gated images were also obtained to Perfusion SPECT analysis: Review of the stress images demonstrate normal uptake of tracer noted in all areas of the myocardium. Similarly the resting images demonstrated normal uptake of tracer noted in all areas of the myocardium. No areas of reversibility are noted to suggest ischemia and no previous infarct is noted. Gated SPECT analysis: The gated ejection fraction is 57%. Conclusion: Normal pharmacologic myocardial perfusion stress test. Preserved ejection fraction.
== END ==
PROVIDERS: PCP Family Medicine; Referring Provider Nurse Practitioner Family; Visit Provider Nurse Practitioner Family
DX: R94.31 Abnormal electrocardiogram [ECG] [EKG] (principal); I44.1 Atrioventricular block, second degree; I44.7 Left bundle-branch block, unspecified; I47.2 Ventricular tachycardia; R53.83 Other fatigue
CPT/HCPCS: 78452; 93017; A9500; A4216; J2785

== ENCOUNTER → 2021-08-22 15:25 | Outpatient (CLI) | payer MEDICARE, OTHER, SELFPAY ==
[2021-08-22 17:30] LABS: Absolute Lymphocyte Count 1.44 X10^3/uL (0.83-4.51); Absolute Neutrophil Count 6.4 X10^3/uL (2.0-7.7); Basophil# 0.02 X10^3/uL; Basophil% 0.2 % (0-1); Eosinophil# 0.06 X10^3/uL; Eosinophils% 0.7 % (0-5); Hematocrit 40.2 % (40-54); Hemoglobin 13.2 g/dL (13.0-16.5); Lymphocyte # 1.44 X10^3/ul (0.83-4.51); Lymphocyte % 16.6 % (19-41); Mean Corp Hgb Conc 32.8 g/dL (32-36); Mean Corpuscular Volume 97.6 fL (80-94); Mean Platelet Vol. 11.5 fl (6.2-12.0); Monocyte# 0.74 X10^3/uL; Monocyte% 8.5 % (0-10); NRBC Flagged by Analyzer 0 % (0-5); Neutrophil # 6.36 X10^3/uL (2.7-7.7); Neutrophil % 73.4 % (47-70); Platelet Count 226 K/mm3 (150-450); RBC Distribution Width CV 13.8 % (11.6-14.6); RET-HE 38.1 pg (30-35); Red Blood Count 4.12 M/mm3 (4.6-6.2); Reticulocyte Count 1.37 % (0.5-1.5); White Blood Count 8.7 K/mm3 (4.4-11.0)
[2021-08-22 17:51] LABS: Ferritin 121 ng/mL (26-388); Iron Binding Capacity,Total 412 ug/dL (250-450)
== END ==
PROVIDERS: PCP Family Medicine; Referring Provider Family Medicine; Visit Provider Family Medicine
DX: D64.9 Anemia, unspecified (principal)
CPT/HCPCS: 36415; 82728; 83550; 85025; 85045

== ENCOUNTER → 2021-08-30 10:25 | Outpatient (CLI) | payer MEDICARE, OTHER, SELFPAY | PROVIDERS: PCP Family Medicine; Referring Provider Family Medicine; Visit Provider Family Medicine | DX: Z00.00 Encounter for general adult medical examination without abnormal findings (principal) ==

== ENCOUNTER 2021-10-11 10:44 | Outpatient (CLI) | payer MEDICARE, OTHER, SELFPAY ==
--- NOTE | 2021-10-11 10:55 | RAD_ITS ---
STUDY: X-RAY - LUMBAR SPINE REASON FOR EXAM: Male, 76 years old. Radiating low back pain TECHNIQUE: 3 view(s) of the lumbar spine were obtained. COMPARISON: None FINDINGS: Normal lumbar lordosis. There is no substantial scoliosis. There is a normal alignment of the vertebrae. There is multilevel endplate spondylosis of the lumbar vertebrae. There is multi-level degenerative disc disease with multi-level disc space narrowing. There is no demonstrated fracture. The soft tissue structures are unremarkable. RAD/Lumbar Spine 2 or 3 Views IMPRESSION: Degenerative changes of the spine, as detailed above. Electronically Signed: Vikram Ramirez MD at 11:51 EST ,
== END 2021-10-11 23:59 | disposition short-term general hospital (02) ==
PROVIDERS: PCP Family Medicine; Referring Provider Orthopaedic Surgery; Visit Provider Orthopaedic Surgery
DX: M54.59 Other low back pain (principal)
CPT/HCPCS: 72100

== ENCOUNTER 2021-11-08 11:37 | Outpatient (CLI) | payer MEDICARE, OTHER, SELFPAY ==
--- NOTE | 2021-11-08 11:40 | CT_ITS ---
STUDY: CT LUMBAR SPINE WITH INTRATHECAL CONTRAST (LUMBAR CT MYELOGRAM) REASON FOR EXAM: Male, 76 years old. STENOSIS RADIATION DOSAGE (If Supplied By Facility): CTDIvol = ( 17.73 ) mGy, DLP = ( 719.11 ) mGycm TECHNIQUE: Transaxial images were obtained from the T12 vertebra through the S1 vertebrae, following intrathecal administration of 20 ml of ISOVUE-M 200 contrast material, performed by Dr. Bhatt. Please refer to this physicians technical notes for procedural details. Coronal and sagittal reconstructions were obtained. Individualized dose optimization techniques were used for this CT. COMPARISON: None. FINDINGS: Normal lumbar lordosis. There is no substantial scoliosis. Normal vertebrae of the lumbar spine. There is dependent layering of contrast material in the distal thecal sac. The conus medullaris terminates in a normal position at the L1-L2 level. There is no demonstrated cauda equina nerve root abnormality or intraspinal mass. L1-2: Anterior spondylosis. Facet joint osteoarthritis. Mild degree of bilateral neural foraminal stenosis slightly worse on the right side. Mild degree of disc space narrowing and disc degeneration. Spondylosis. Facet joint osteoarthritis. Mild degree of diffuse posterior disc bulge. Bilateral neural foraminal stenosis. L2-3: Moderate degree of disc space narrowing and disc degeneration. Spondylolysis. Mild degree of bilateral neural foraminal stenosis. L3-4: Moderate degree of disc space narrowing and degeneration. Spondylosis. Mild degree of bilateral neural foraminal stenosis. L4-5: Mild degree of disc space narrowing. Moderate degree of spinal stenosis caused by a combination of hypertrophy of the facet joints as well as the ligamentum flavum and diffuse posterior disc bulge. L5-S1: Facet joint osteoarthritis and hypertrophy. There are degenerative changes of the bilateral sacroiliac joints. Normal visualized paraspinous soft tissue structures. CT/Spine Lumbar WITH Contrast IMPRESSION: Spinal stenosis at the L4-L5 level with multilevel degenerative changes and facet joint osteoarthritis and hypertrophy with bilateral neural foraminal stenosis. Electronically Signed: Jerson Bhatt MD at 14:40 EST ,
[2021-11-08 11:53] VITALS: BP 110/60; PULSE 86; RESP 16; TEMP 36.1; O2SAT 100; BMI 27.8
--- NOTE | 2021-11-08 12:05 | RAD_ITS ---
PROCEDURE: LUMBAR MYELOGRAM DATE OF EXAMINATION: 11/08/2021. INDICATION: Male, 76 years old. Low back pain. PHYSICIAN: Jerson Bhatt M.D. CONSENT: The patient''s history and physical findings were reviewed. The lumbar myelogram procedure was discussed with the patient prior to signing a consent. SEDATION: Local anesthesia with 3 mL of 1% lidocaine was used. FLUOROSCOPY TIME (if supplied): (1:07) minutes/seconds. Injection Information: 20 cc of ISOVUE-M 200. Number of images obtained: 4 TECHNIQUE: Digital fluoroscopy was used to identify a safe approach for the lumbar myelogram. The back was prepped and draped in usual fashion. Local anesthesia was utilized. Under fluoroscopic guidance a 22-gauge spinal needle was inserted into the spinal canal at the L2-L3 level. Clear spinal fluid was seen.. 20 mL of Isovue 200 M was injected into the spinal canal. There is good opacification of the spinal fluid. There is evidence of multilevel spinal stenosis with multilevel disc space narrowing and disc degeneration. The patient tolerated the procedure well. RAD/Lumbar Myelogram IMPRESSION: Multilevel spinal stenosis. A CT scan will follow. Electronically Signed: Jerson Bhatt MD at 13:06 EST ,
[2021-11-08] MEDS: Lidocaine 2% (5ml sdv) 5 ML VIAL.MPF INFILT (12:15)
[2021-11-08 12:45] VITALS: BP 122/68; PULSE 74; RESP 16; O2SAT 100
[2021-11-08 13:15] VITALS: BP 134/67; PULSE 70; RESP 16; O2SAT 99
[2021-11-08 14:08] VITALS: BP 139/82; PULSE 70; RESP 14; O2SAT 99
[2021-11-08 14:34] VITALS: BP 146/78; PULSE 82; RESP 16; O2SAT 100
== END 2021-11-08 23:59 | disposition home or self-care (01) ==
LOC: RAD 11:38
PROVIDERS: PCP Family Medicine; Referring Provider Orthopaedic Surgery; Visit Provider Orthopaedic Surgery
DX: M48.062 Spinal stenosis, lumbar region with neurogenic claudication (principal)
CPT/HCPCS: 62304; 72132

== ENCOUNTER 2021-11-11 10:28 | Emergency (ER) | payer MEDICARE, OTHER, SELFPAY ==
[2021-11-11 10:30] VITALS: BP 144/89; PULSE 85; RESP 18; TEMP 35.4; O2SAT 99; BMI 28.1
--- NOTE | 2021-11-11 11:29 | CT_ITS ---
STUDY: CT BRAIN WITHOUT CONTRAST REASON FOR EXAM: Male, 76 years old. Headache, high BP RADIATION DOSAGE (If Supplied By Facility): CTDIvol = ( 44.99 ) mGy, DLP = ( 779.24 ) mGycm TECHNIQUE: Transaxial CT imaging of the brain was performed without administration of intravenous contrast material. Individualized dose optimization techniques were used for this CT. COMPARISON: No relevant priors. FINDINGS: Normal soft tissue structures. Normal calvarium. There is mild cerebral atrophy with widening of the extra-axial spaces and ventricular dilatation. Normal white matter tracts of the cerebral hemispheres. Normal basal ganglia and thalami. Normal brainstem. Normal cerebellum. There is no intracranial hemorrhage. There are no findings of an acute ischemic infarction. Atherosclerotic calcification of the vertebral arteries and cavernous portions of the internal carotid artery bilaterally. Normal visualized paranasal sinuses. CT/Brain/Head without Contrast IMPRESSION: Chronic involutional changes of the brain. Electronically Signed: Jerson Bhatt MD at 12:41 EST ,
--- NOTE | 2021-11-11 11:29 | EKG12_ITS ---
Test Reason : Blood Pressure : / mmHG Vent. Rate : 072 BPM Atrial Rate : 072 BPM P-R Int : 140 ms QRS Dur : 138 ms QT Int : 422 ms P-R-T Axes : 066 -79 071 degrees QTc Int : 462 ms Normal sinus rhythm Left axis deviation Right bundle branch block Abnormal ECG Confirmed by CHIDI RO, EFE ([id number]), newspaper editor managing CHIP ARANDA ([id number]) on 11/14/2021 1:19:39 PM Referred By: NATASHA Confirmed By:EFE MURILLO MD
--- NOTE | 2021-11-11 11:29 | EX.ED.DYSGE1 ---
HPI History of Present Illness Chief Complaint: Other, Pain/Inj Detail of Chief Complaint: fatigue, high BP, headache Informant: patient Onset/Context/Timing Onset: Days (3-4) Context: Onset with activity (myelogram) Timing: Continuous Quality: pressure Location: head globally Current Severity: Mild Maximum Severity: Moderate Worsened by: when BP up; no change w/ position that he has noticed Relieved by: nothing in particular Narrative Narrative: Patient has been having some back pain/issues, and since he has a pacemaker that apparently is not compatible with MRI, he had a myelogram on Thursday, presenting here to the ER on Thursday because of symptoms that have been present ever since the myelogram. States he feels tired/fatigued, his neck feels a little sore and stiff, and he has had head pressure off and on along with his blood pressure going up. He thinks his blood pressure was at its highest last night when it was 189 systolic. He denies any changes in vision, changes in hearing, peripheral neurologic symptoms of any type. He also denies any problems urinating or having bowel movements, no dysfunction of bowel or bladder. No perineal anesthesia. No paresthesias anywhere. 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 Essential (primary) hypertension Left bundle branch block (LBBB) Mobitz type II atrioventricular block Non-sustained ventricular tachycardia LORI (obstructive sleep apnea) Over weight Raynaud disease Schatzki's ring of distal esophagus Sinus bradycardia Home Medications aspirin 81 mg PO DAILY@0800 08/05/15 [History Last Taken 12/05/15] alprazolam 0.5 mg PO QHS 12/07/15 [History Last Taken Unknown] cholecalciferol (vitamin D3) 1,000 unit PO DAILY 12/07/15 [History Last Taken Unknown] omeprazole 20 mg capsule,delayed release 20 mg PO DAILY 09/29/19 [History Last Taken Unknown] meloxicam 7.5 mg tablet 7.5 mg PO BID tab 03/28/21 [History Last Taken Unknown] dutasteride 0.5 mg capsule 0.5 mg PO DAILY 03/29/21 [History Last Taken Unknown] nifedipine 30 mg tablet,extended release 15 mg PO DAILY #30 tab 11/08/21 [Rx Last Taken Unknown] losartan 25 mg tablet 25 mg PO BID #180 tab 09/23/21 [Rx Last Taken Unknown] Allergy/AdvReac Type Severity Reaction Status Date / Time carvedilol [From Coreg] AdvReac face Verified 05/16/21 10:46 tingling Family History Mother CAD (coronary artery disease) Father CAD (coronary artery disease) Brother Polycystic kidney disease Surgical History Biventricular cardiac pacemaker in situ (07/13/15) History of carpal tunnel surgery of right wrist History of esophagogastroduodenoscopy (EGD) History of herniorrhaphy Social History Smoking Status: Never smoker alcohol intake: never substance use type: does not use caffeine: Yes Type: carbonated beverages and tea ROS ROS ED Constitutional Constitutional ED: Reports other Details: Occasional chills/tremors ; Denies fever(s) Eyes Eyes: Denies change in vision or diplopia ENT ENT ED: Reports as per HPI, headache(s) and other Details: Neck stiffness without significant pain ; Denies dizziness, ear pain, hearing loss, rhinorrhea or sore throat Cardiovascular Cardiovascular: Denies chest pain or palpitations Respiratory/Chest Respiratory/Chest: Denies cough or dyspnea Gastrointestinal Gastrointestinal: Reports nausea; Denies abdominal pain, diarrhea or vomiting Genitourinary Genitourinary ED: Denies dysuria or hematuria Musculoskeletal Musculoskeletal: Reports back pain; Denies neck pain Integumentary Denies abscess or rash Neurologic Neurologic: Reports headache(s); Denies paresthesias or weakness Psychiatric Psychiatric: Denies anxiety or suicidal thoughts EXAM Physical Exam Const Vital Signs: 11/11/21 10:30 11/11/21 11:51 Temperature 95.8 F L Temperature Source Temporal Pulse Rate 85 Respiratory Rate 18 Respiratory Effort Normal Non-Labored Blood Pressure 144/89 H Blood Pressure Mean 107 Pulse Ox 99 Oxygen Delivery Method Room Air Positive well nourished and well developed General Appearance ED: well developed and NAD HEENT Reports moist mucous membranes normocephalic and atraumatic Eyes PERRL and EOMs intact bilaterally Neck full ROM, No nuchal rigidity, no lymphadenopathy, supple and no meningeal signs Resp normal respiratory effort and clear to auscultation bilaterally Cardio regular rate, regular rhythm and no murmurs GI non-tender and non-distended Auscultation: normoactive bowel sounds Palpation: soft Back/Spine no CVA tenderness General Back: other FROM Extremity normal to inspection General Extremety ED: Negative for edema, pulses abnormal or tenderness General Extremity: Negative for edema or pulses abnormal Neuro oriented x3, CN's II-XII intact bilaterally, no sensory deficits noted, deep tendon reflexes 2+ bilaterally and gait normal Sensorium / Orientation: awake and alert Motor Exam: strength 5/5 throughout and clonus absent Skin no rashes or lesions noted and no wounds Skin Narrative: Injection site in lumbosacral back is benign, nontender, no signs of any infections or drainage. MDM MDM MDM Narrative Medical decision making narrative: Obtain some basic labs and a urine on this patient in addition to a CT head, all of which is unremarkable. Discussed with radiology after monitoring his blood pressures which remained in the 140 range systolic, Dr. Bhatt. He performed the procedure last week and agrees consulting anesthesia for blood patch is reasonable given his symptoms and history. I discussed with anesthesia but they stated with these cases, they are usually referred to PM&R. Discussed with Dr. Nunez, who requested that I send the patient over to his office and he would take care of him today. Patient is comfortable with that plan will be discharged in the ER with appropriate instructions. Lab Data Attestation: I reviewed the patient's lab results. Labs: Laboratory Results - last 24 hr 11/11/21 11/11/21 11/11/21 11:41 11:50 11:50 WBC 9.0 RBC 4.42 L Hgb 14.1 Hct 42.3 MCV 95.7 H MCH 31.9 MCHC 33.3 RDW Std Deviation 48.4 H RDW Coeff of Pia 13.5 Plt Count 206 MPV 10.9 Immature Gran % (Auto) 0.300 Neut % (Auto) 78.5 H Lymph % (Auto) 12.0 L [place] % (Auto) 8.1 Eos % (Auto) 0.7 Baso % (Auto) 0.4 Absolute Neuts (auto) 7.1 Absolute Lymphs (auto) 1.08 Nucleated RBC % 0 Sodium 138 Potassium 3.5 Chloride 106 Carbon Dioxide 29.0 Anion Gap 3 L BUN 14 Creatinine 0.91 Estim Creat Clear Calc 67.86 Est GFR (MDRD) Af Amer 104 Est GFR (MDRD) Non-Af 86 BUN/Creatinine Ratio 15.4 Glucose 107 H Calcium 9.6 Troponin I High Sens 6 Urine Color Yellow Urine Clarity Sl. Cloudy Urine pH 6.0 Ur Specific [place] 1.020 Urine Protein 15 H Urine Glucose (UA) Normal Urine Ketones Negative Urine Occult Blood Negative Urine Nitrite Negative Urine Bilirubin Negative Urine Urobilinogen Normal Ur Leukocyte Esterase Negative Urine RBC 0 SEEN Urine WBC 0 SEEN Ur Squamous Epith Cells 0-5 SEEN Urine Bacteria 0 SEEN Urine Mucus 2+ Radiography Diagnostic Testing: Clinical Impression(s) from Imaging Studies Brain CT 11/11/21 11:29 IMPRESSION: Chronic involutional changes of the brain. Electronically Signed: Jerson Bhatt MD at 12:41 EST Reading Location ID and State: [address] [place] [address] , Service support , EKG Initial EKG: Attestation: I personally reviewed and interpreted this EKG as follows: Interpretation: Sinus Rhythm, No Acute Injury Pattern, RBBB and LAFB Prior EKG tracings: available for review Prior: Unchanged Discharge Plan Triage Chief Complaint: Other, Pain/Inj Other Complaint: General Illness ED Provider: Vargas Baltazar Dx/Rx/DC Orders Clinical Impression: Headache, post-myelogram Instructions: ED Headache After Spinal Tap ... Prescriptions: No Action omeprazole 20 mg capsule,delayed release(DR/EC) 20 mg PO DAILY RF: 0 meloxicam 7.5 mg tablet 7.5 mg PO BID RF: 0 aspirin 81 MG tablet,chewable 81 mg PO DAILY@0800 RF: 0 alprazolam 0.5 MG tablet 0.5 mg PO QHS RF: 0 cholecalciferol (vitamin D3) 1,000 UNIT tablet 1,000 unit PO DAILY RF: 0 dutasteride 0.5 mg capsule 0.5 mg PO DAILY RF: 0 nifedipine 30 mg tablet extended release 15 mg PO DAILY Qty: 30 RF: 11 losartan 25 mg tablet 25 mg PO BID Qty: 180 RF: 3 Primary Care Provider: Juan Jose Veras Referrals: Amparo Nunez MD [STAFF PHYSICIAN] - As soon as possible (today) Juan Jose Veras MD [Primary Care Provider] - Disposition Disposition: Home, Self Care
[2021-11-11 11:51] LABS: Bacteria 0 SEEN /hpf (None Seen); Red Blood Cells-Urine 0 SEEN /hpf (0-5); White Blood Cells 0 SEEN /hpf (0-5)
[2021-11-11 11:58] LABS: Color, Urine Yellow (Yellow); Glucose, Dipstick Normal (Normal); Ketone-Dipstick Negative (Negative); Leukocyte Esterase-Dipstick Negative /ul (Negative); Nitrite-Dipstick Negative (Negative); Occult Blood-Urine Negative /ul (Negative); Protein-Dipstick 15 mg/dl (Negative); Urine Bilirubin Dipstick Negative (Negative); Urine Clarity Sl. Cloudy (Clear); Urine Urobilinogen Normal (Normal)
[2021-11-11 11:59] LABS: Absolute Lymphocyte Count 1.08 X10^3/uL (0.83-4.51); Absolute Neutrophil Count 7.1 X10^3/uL (2.0-7.7); Basophil# 0.04 X10^3/uL; Basophil% 0.4 % (0-1); Eosinophil# 0.06 X10^3/uL; Eosinophils% 0.7 % (0-5); Hematocrit 42.3 % (40-54); Hemoglobin 14.1 g/dL (13.0-16.5); Lymphocyte # 1.08 X10^3/ul (0.83-4.51); Mean Corp Hgb Conc 33.3 g/dL (32-36); Mean Corpuscular Hgb 31.9 pg (27.0-32.0); Mean Corpuscular Volume 95.7 fL (80-94); Mean Platelet Vol. 10.9 fl (6.2-12.0); Monocyte# 0.73 X10^3/uL; Monocyte% 8.1 % (0-10); NRBC Flagged by Analyzer 0 % (0-5); Neutrophil # 7.08 X10^3/uL (2.7-7.7); Neutrophil % 78.5 % (47-70); Platelet Count 206 K/mm3 (150-450); RBC Distribution Width CV 13.5 % (11.6-14.6); RBC Distribution Width SD 48.4 fl (35.1-43.9); Red Blood Count 4.42 M/mm3 (4.6-6.2)
[2021-11-11 12:11] LABS: Mucous, Urine 2+ /hpf (<or=2+); Squamous Epithelial Cells - UA 0-5 SEEN /hpf (0-5)
[2021-11-11 12:16] LABS: Anion Gap 3 (5-15); BUN 14 mg/dL (7-18); BUN/Creat Ratio 15.4 RATIO (10-20); Calcium,Total 9.6 mg/dL (8.5-10.1); Chloride 106 mmol/L (98-107); Creatinine, Serum 0.91 mg/dL (0.70-1.30); EST Glomerular Filtration Rate 86 mL/min (>60); Est Glom Filt Rate - Afr Amer 104 mL/min (>60); Estimated Creatinine Clearance 67.86 ml/min; Glucose 107 mg/dL (74-106); Potassium 3.5 mmol/L (3.5-5.1); Sodium Level 138 mmol/L (136-145); Troponin-I HS 6 pg/mL (3.0-78.0)
[2021-11-11 13:19] VITALS: BP 136/78; PULSE 73; RESP 14; O2SAT 97
== END 2021-11-11 13:19 | disposition home or self-care (01) ==
PROVIDERS: Emergency Provider Emergency Medicine; PCP Family Medicine; Visit Provider Emergency Medicine
DX: G97.1 Other reaction to spinal and lumbar puncture (principal); I43 Cardiomyopathy in diseases classified elsewhere; R51.9 Headache, unspecified; I10 Essential (primary) hypertension; G47.33 Obstructive sleep apnea (adult) (pediatric); Z79.899 Other long term (current) drug therapy; Z79.82 Long term (current) use of aspirin; Z95.0 Presence of cardiac pacemaker; I45.10 Unspecified right bundle-branch block
CPT/HCPCS: 70450; 80048; 81001; 84484; 85025; 93005; 99282

== ENCOUNTER 2021-11-13 10:07 | Outpatient (CLI) | payer MEDICARE, OTHER, SELFPAY ==
[2021-11-13 12:32] LABS: ALB/GLOB Ratio 1.2 RATIO (0.9-2.4); AST(SGOT) 22 U/L (15-37); Alanine Aminotransfer ALT/SGPT 22 U/L (16-61); Albumin, Serum 3.7 g/dL (3.2-5.0); Alkaline Phosphatase 74 U/L (45-117); Anion Gap 7 (5-15); BUN 20 mg/dL (7-18); BUN/Creat Ratio 23.5 RATIO (10-20); Chloride 105 mmol/L (98-107); Creatinine, Serum 0.85 mg/dL (0.70-1.30); EST Glomerular Filtration Rate 93 mL/min (>60); Est Glom Filt Rate - Afr Amer 113 mL/min (>60); Glucose 93 mg/dL (74-106); PSA,Total - Annual Screen 1.04 ng/mL (0.00-4.00); Potassium 4.5 mmol/L (3.5-5.1); Protein, Total 6.7 g/dL (6.4-8.2); Sodium Level 139 mmol/L (136-145)
== END 2021-11-13 23:59 | disposition home or self-care (01) ==
LOC: MFPLAB 10:08
PROVIDERS: PCP Family Medicine; Referring Provider Family Medicine; Visit Provider Family Medicine
DX: I10 Essential (primary) hypertension (principal); Z12.5 Encounter for screening for malignant neoplasm of prostate
CPT/HCPCS: 36415; 80053; 84153; G0103

== ENCOUNTER → 2022-01-15 | Outpatient (CLI) | payer MEDICARE, OTHER, SELFPAY ==
[2022-01-15 15:09] LABS: Absolute Lymphocyte Count 1.38 X10^3/uL (0.83-4.51); Absolute Neutrophil Count 4.2 X10^3/uL (2.0-7.7); Basophil# 0.04 X10^3/uL; Basophil% 0.6 % (0-1); Eosinophil# 0.11 X10^3/uL; Eosinophils% 1.7 % (0-5); Hematocrit 40.7 % (40-54); Hemoglobin 13.4 g/dL (13.0-16.5); Lymphocyte # 1.38 X10^3/ul (0.83-4.51); Lymphocyte % 21.5 % (19-41); Mean Corp Hgb Conc 32.9 g/dL (32-36); Mean Corpuscular Volume 97.1 fL (80-94); Mean Platelet Vol. 11.6 fl (6.2-12.0); Monocyte% 10.9 % (0-10); NRBC Flagged by Analyzer 0 % (0-5); Neutrophil # 4.18 X10^3/uL (2.7-7.7); Platelet Count 249 K/mm3 (150-450); RBC Distribution Width CV 13.1 % (11.6-14.6); RBC Distribution Width SD 46.4 fl (35.1-43.9); Red Blood Count 4.19 M/mm3 (4.6-6.2); White Blood Count 6.4 K/mm3 (4.4-11.0)
[2022-01-15 15:20] LABS: International Normalized Ratio 1.1; Prothrombin Time (Protime)PT. 13.9 SECONDS (11.7-14.9)
[2022-01-15 15:21] LABS: Partial Thromboplast Time 27.4 Seconds (24.1-36.2)
[2022-01-15 15:34] LABS: Anion Gap 5 (5-15); BUN 20 mg/dL (7-18); BUN/Creat Ratio 23.1 RATIO (10-20); Calcium,Total 8.7 mg/dL (8.5-10.1); Chloride 105 mmol/L (98-107); Creatinine, Serum 0.86 mg/dL (0.70-1.30); EST Glomerular Filtration Rate 91 mL/min (>60); Est Glom Filt Rate - Afr Amer 111 mL/min (>60); Glucose 85 mg/dL (74-106); Potassium 4.4 mmol/L (3.5-5.1); Sodium Level 139 mmol/L (136-145)
== END | disposition home or self-care (01) ==
LOC: MFPLAB 13:41
PROVIDERS: PCP Family Medicine; Referring Provider Family Medicine; Visit Provider Family Medicine
DX: Z01.818 Encounter for other preprocedural examination (principal); I10 Essential (primary) hypertension; D64.9 Anemia, unspecified
CPT/HCPCS: 36415; 80048; 85025; 85610; 85730

== ENCOUNTER → 2022-01-17 | Outpatient (CLI) | payer MEDICARE, OTHER, SELFPAY ==
[2022-01-17 14:49] LABS: Color, Urine Yellow (Yellow); Glucose, Dipstick Normal (Normal); Ketone-Dipstick Negative (Negative); Leukocyte Esterase-Dipstick Negative /ul (Negative); Nitrite-Dipstick Negative (Negative); Occult Blood-Urine Negative /ul (Negative); Protein-Dipstick Negative (Negative); Urine Bilirubin Dipstick Negative (Negative); Urine Clarity Clear (Clear); Urine Urobilinogen Normal (Normal)
== END | disposition home or self-care (01) ==
LOC: MFPLAB 11:59
PROVIDERS: PCP Family Medicine; Referring Provider Family Medicine; Visit Provider Family Medicine
DX: M54.50 Low back pain, unspecified (principal)
CPT/HCPCS: 81002

== ENCOUNTER → 2022-01-20 | Outpatient (CLI) | payer MEDICARE, OTHER, SELFPAY ==
--- NOTE | 2022-01-20 11:02 | ECHOCS_ITS ---
Reason For Study: CAD/ASHD Procedure This was a 2D Doppler, Color Flow transthoracic echocardiogram. The study was technically difficult. Exam performed in department. Left Ventricle Normal LV size. Left ventricular systolic function is normal. The estimated ejection fraction is 55 %. Stage 1 diastolic dysfunction. No regional wall motion abnormalities noted. Right Ventricle Normal RV size. Normal systolic function. Atria Normal left atrium. Normal right atrium. Mitral Valve Normal mitral valve. Tricuspid Valve Normal tricuspid valve. Aortic Valve Trisinus/trileaflet aortic valve. Mild focal aortic valve calcification. Pulmonic Valve Normal pulmonic valve. Great Vessels Normal aortic root. The pulmonary artery is normal size. Normal inferior vena cava. Pericardium/Pleural No pericardial effusion. Medication 22 gauge I.V. with prn adaptor inserted into left arm. Diluted definity 2ml given slow IV push to enhance endocardial definition. Performed a rapid injection of agitated mix of 9 cc saline and 1cc air to assess for atrial septal defect. MMode/2D Measurements & Calculations LVIDd: 3.4 cm IVSd: 1.0 cm Ao root diam: 3.3 cm LVIDs: 2.0 cm LVPWd: 1.0 cm RVDd: 3.1 cm FS: 39.4 % LAV(MOD-bp): 33.5 ml LVAd ap4: 30.4 cm2 SV(MOD-sp4): 64.1 ml LAV(MOD-bp) Indexed: 16.8 ml/m2 LVLd ap4: 7.5 cm LAV(MOD-sp2): 35.4 ml EDV(MOD-sp4): 101.7 ml LAV(MOD-sp4): 31.8 ml EDV(sp4-el): 105.2 ml LVAs ap4: 16.2 cm2 LVLs ap4: 5.7 cm ESV(MOD-sp4): 37.6 ml ESV(sp4-el): 39.0 ml EF(MOD-sp4): 63.0 % EF(sp4-el): 62.9 % SV(sp4-el): 66.1 ml LA A4 area: 13.5 cm2 LA dimension(2D): 2.8 cm RA A4 area: 12.6 cm2 Time Measurements MV dec time: 0.22 sec Doppler Measurements & Calculations MV E max guido: 58.1 cm/sec Lat Peak E' Guido: 7.5 cm/sec Med Peak E' Guido: 7.8 cm/sec MV A max guido: 84.7 cm/sec E/E' lat: 7.7 E/E' med: 7.4 MV E/A: 0.69 Ao V2 max: 117.5 cm/sec LV V1 max: 91.4 cm/sec PA V2 max: 66.9 cm/sec Ao max P.5 mmHg LV V1 max P.3 mmHg ECHO/Echo Complete W/ Contrast Interpretation Summary Normal LV size. Left ventricular systolic function is normal. The estimated ejection fraction is 55 %. Stage 1 diastolic dysfunction. Contrast injection was performed. Ordering Physician: Donald Burt Referring Physician: ALEX FREEMAN Performed By: Patricia Snell RDCS
== END | disposition home or self-care (01) ==
LOC: CVS 11:00
PROVIDERS: PCP Family Medicine; Visit Provider Internal Medicine Cardiovascular Disease
DX: I25.10 Atherosclerotic heart disease of native coronary artery without angina pectoris (principal); I44.1 Atrioventricular block, second degree
CPT/HCPCS: 93306; Q9957; A4216; C8929

== ENCOUNTER → 2022-05-06 | Outpatient (CLI) | payer MEDICARE, OTHER, SELFPAY ==
--- NOTE | 2022-05-06 15:19 | RAD_ITS ---
HISTORY: POST-OP. TECHNIQUE: XR Ankle 2 Views. COMPARISON: 03/21/2021. FINDINGS: BONES : No acute fracture identified. Mineralization unremarkable. Mild calcaneal enthesopathy. JOINTS: No dislocation. Mild degenerative change. RAD/Ankle 2 Views IMPRESSION: No acute fracture or dislocation identified in the left ankle. Electronically Signed: Gissel Bowling MD at 16:55 EDT ,
--- NOTE | 2022-05-06 15:25 | RAD_ITS ---
HISTORY: POST-OP -- AP W/ FROG LEFT. TECHNIQUE: XR Pelvis 1 or 2 Views. COMPARISON: None. FINDINGS: OSSEOUS STRUCTURES: No acute displaced fracture identified. Os acetabuli noted bilaterally. Degenerative osteophytes present. Note that overlapping bowel shadows may obscure osseous detail. Mineralization unremarkable. JOINT SPACES: No dislocation. Mild degenerative changes of the hips. SOFT TISSUES: Postoperative changes post operative changes noted. RAD/HIP, UNI W/ Pelvis 2-3 Views IMPRESSION: No acute displaced fracture or dislocation identified. Electronically Signed: Gissel Bowling MD at 16:54 EDT ,
== END | disposition home or self-care (01) ==
PROVIDERS: PCP Family Medicine
DX: Z01.818 Encounter for other preprocedural examination (principal); M16.0 Bilateral primary osteoarthritis of hip
CPT/HCPCS: 72170; 73502; 73600

== ENCOUNTER → 2022-05-28 | Outpatient (CLI) | payer MEDICARE, OTHER, SELFPAY ==
[2022-05-28 15:03] LABS: Absolute Lymphocyte Count 1.26 X10^3/uL (0.83-4.51); Absolute Neutrophil Count 4.3 X10^3/uL (2.0-7.7); Basophil# 0.05 X10^3/uL; Basophil% 0.8 % (0-1); Eosinophil# 0.11 X10^3/uL; Eosinophils% 1.7 % (0-5); Hematocrit 40.7 % (40-54); Hemoglobin 13.3 g/dL (13.0-16.5); Lymphocyte # 1.26 X10^3/ul (0.83-4.51); Lymphocyte % 19.5 % (19-41); Mean Corp Hgb Conc 32.7 g/dL (32-36); Mean Corpuscular Hgb 31.9 pg (27.0-32.0); Mean Corpuscular Volume 97.6 fL (80-94); Mean Platelet Vol. 11.5 fl (6.2-12.0); Monocyte# 0.78 X10^3/uL; Monocyte% 12.1 % (0-10); NRBC Flagged by Analyzer 0 % (0-5); Neutrophil # 4.25 X10^3/uL (2.7-7.7); Neutrophil % 65.6 % (47-70); Platelet Count 256 K/mm3 (150-450); RBC Distribution Width CV 13.9 % (11.6-14.6); Red Blood Count 4.17 M/mm3 (4.6-6.2); White Blood Count 6.5 K/mm3 (4.4-11.0)
[2022-05-28 15:26] LABS: Anion Gap 4 (5-15); BUN 22 mg/dL (7-18); BUN/Creat Ratio 22.5 RATIO (10-20); Calcium,Total 9.6 mg/dL (8.5-10.1); Chloride 105 mmol/L (98-107); Cholesterol 211 mg/dL (200); Creatinine, Serum 0.98 mg/dL (0.70-1.30); EST Glomerular Filtration Rate 79 mL/min (>60); Est Glom Filt Rate - Afr Amer 96 mL/min (>60); Glucose 75 mg/dL (74-106); High Density Lipoprotein 59 mg/dL; Potassium 4.5 mmol/L (3.5-5.1); Sodium Level 140 mmol/L (136-145); Thyroid Stim Hormone (TSH) 1.63 uIU/mL (0.358-3.74); Triglycerides 112 mg/dL; Very Low Density Lipoprotein 22 mg/dL (5-40)
== END | disposition home or self-care (01) ==
LOC: MFPLAB 12:04
PROVIDERS: PCP Family Medicine; Referring Provider Family Medicine; Visit Provider Family Medicine
DX: I10 Essential (primary) hypertension (principal); R53.83 Other fatigue
CPT/HCPCS: 36415; 80048; 80061; 84403; 84443; 85025

== ENCOUNTER → 2022-06-20 | Outpatient (CLI) | payer MEDICARE, OTHER, SELFPAY ==
--- NOTE | 2022-06-20 16:37 | CT_ITS ---
INDICATION: low back pain EXAMINATION: CT Spine Lumbar W/O Contrast Injection TECHNIQUE: Helically acquired images were obtained of the lumbar spine. 2D reformats were reviewed. A radiation dose optimization technique was used for this scan. IV Contrast dosage and agent: None. COMPARISON: 11/08/2021. FINDINGS: VERTEBRAE: No fracture or traumatic subluxation. No discrete lytic or blastic abnormality observed. Normal alignment. DISCS and SPINAL CANAL: Status post left laminectomy at L4-L5. Severe multilevel degenerative disc disease and spondylosis. No critical stenosis. VISUALIZED ABDOMEN: Visualized abdominal aorta is not dilated. There is no retroperitoneal adenopathy. CT/Spine Lumbar without Contrast IMPRESSION: Severe multilevel degenerative disc disease and spondylosis. Status post left laminectomy at L4-L5. Electronically Signed: Livan Recinos MD at 18:30 EDT ,
== END | disposition home or self-care (01) ==
LOC: CT 16:35
PROVIDERS: PCP Family Medicine; Referring Provider Orthopaedic Surgery; Visit Provider Orthopaedic Surgery
DX: M53.3 Sacrococcygeal disorders, not elsewhere classified (principal); M47.817 Spondylosis without myelopathy or radiculopathy, lumbosacral region
CPT/HCPCS: 72131

== ENCOUNTER → 2023-01-14 | Outpatient (CLI) | payer MEDICARE, OTHER, SELFPAY ==
[2023-01-14 15:52] LABS: Anion Gap 5 (5-15); BUN 24 mg/dL (7-18); Calcium,Total 9.3 mg/dL (8.5-10.1); Chloride 107 mmol/L (98-107); Cholesterol 202 mg/dL (200); Creatinine, Serum 0.96 mg/dL (0.70-1.30); EST Glomerular Filtration Rate 81 mL/min (>60); Est Glom Filt Rate - Afr Amer 98 mL/min (>60); Glucose 71 mg/dL (74-106); High Density Lipoprotein 61 mg/dL; Potassium 4.8 mmol/L (3.5-5.1); Sodium Level 141 mmol/L (136-145); Triglycerides 88 mg/dL; Very Low Density Lipoprotein 18 mg/dL (5-40)
== END | disposition home or self-care (01) ==
LOC: MFPLAB 11:36
PROVIDERS: PCP Family Medicine; Visit Provider Family Medicine
DX: I10 Essential (primary) hypertension (principal)
CPT/HCPCS: 36415; 80048; 80061

== ENCOUNTER → 2023-07-16 | Outpatient (CLI) | payer MEDICARE, OTHER, SELFPAY ==
[2023-07-16 15:23] LABS: ALB/GLOB Ratio 1.1 RATIO (0.9-2.4); AST(SGOT) 21 U/L (15-37); Alanine Aminotransfer ALT/SGPT 29 U/L (16-61); Albumin, Serum 3.7 g/dL (3.2-5.0); Alkaline Phosphatase 103 U/L (45-117); Anion Gap 4 (5-15); BUN 26 mg/dL (7-18); BUN/Creat Ratio 25.7 RATIO (10-20); Calcium,Total 9.3 mg/dL (8.5-10.1); Chloride 107 mmol/L (98-107); Creatinine, Serum 1.01 mg/dL (0.70-1.30); EST Glomerular Filtration Rate 76 mL/min (>60); Est Glom Filt Rate - Afr Amer 92 mL/min (>60); Globulin 3.4 g/dL (2.2-4.2); Glucose 85 mg/dL (74-106); Potassium 4.9 mmol/L (3.5-5.1); Protein, Total 7.1 g/dL (6.4-8.2); Sodium Level 140 mmol/L (136-145)
== END | disposition home or self-care (01) ==
LOC: MFPLAB 11:59
PROVIDERS: PCP Family Medicine; Visit Provider Family Medicine
DX: I10 Essential (primary) hypertension (principal)
CPT/HCPCS: 36415; 80053

== ENCOUNTER 2023-08-17 10:21 | Day surgery (SDC) | payer MEDICARE, OTHER, SELFPAY ==
--- NOTE | 2023-07-23 14:58 | HP.PCM_ITS ---
History and Physical Date of Admission: 08/17/23 MOO ORTEZ, is a 78 M who presents to [facility] today for generator change. He is a gentleman with a history of hypertension, paroxysmal atrial fibrillation/flutter, and bradycardia Mobitz type II heart block status post biventricular pacemaker implantation placed in June 2015. His device check prior to office needs recommended replacement time. He will proceed with generator change. He denies chest, arm, jaw, or neck discomfort. He acknowledges palpitations that he describes as a skipping sensation. He acknowledges shortness of breath with activity. He denies shortness of breath at rest, orthopnea, cough, or PND. He denies bilateral lower extremity edema. He denies lightheadedness, dizziness, near-syncope, or syncope. He acknowledges continual fatigue. He denies urinary symptoms. Intake Vital Signs: See EMR Intake Visit Reasons: UPDATE [employer] Required: No Accompanied by: Self Is patient in pain?: No Allergies diltiazem Adverse Reaction (Intermediate, Verified 07/16/23 14:39) Facial flushing and fatigue carvedilol [From Coreg] Adverse Reaction (Verified 07/16/23 14:39) face tingling Medications See EMR Ejection fraction %: 55 to 59 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 Essential (primary) hypertension Left bundle branch block (LBBB) Mobitz type II atrioventricular block Non-sustained ventricular tachycardia LORI (obstructive sleep apnea) Over weight Raynaud disease Schatzki's ring of distal esophagus Sinus bradycardia Surgical History Biventricular cardiac pacemaker in situ (07/13/15) History of carpal tunnel surgery of right wrist History of esophagogastroduodenoscopy (EGD) History of herniorrhaphy Family History Mother CAD (coronary artery disease)Father CAD (coronary artery disease)Brother Polycystic kidney disease Social History Smoking Status: Never smoker alcohol intake: never substance use type: does not use caffeine: Yes Type: carbonated beverages and tea ROS Const Const: Positive for fatigue; Negative for weakness, headache(s), daytime sleepiness or difficulty sleeping Eyes Eyes: Negative for change in vision ENT ENT: Negative for headache(s), dizziness or Nosebleed/epistaxis Cardio Chest Pain: No Palpitations: Yes feels like its: skipping Edema: None Resp Respiratory: Positive for SOB with activity; Negative for SOB at rest, SOB orthopnea\SOB lying down or Cough GI GI: Negative nausea, vomiting or heartburn Neuro Neuro: Negative for dizziness, lightheadedness, near syncope, headache(s) or weakness Endo Endo: Positive for fatigue Cardiology Exam Const Appearance: cooperative, healthy appearing, comfortable and no acute distress Nutritional Appearance: well nourished and overweight Orientation: alert, awake and oriented x3 Head Head: normal to inspection Ears: hearing grossly normal bilaterally Nose: external nose normal Face and Sinus: face symmetric Mouth: oral mucosae normal Eyes General: appearance normal, both eyes and all related structures Eyelids: eyelids normal EOM: EOM intact bilaterally Neck Neck: normal visual inspection and no JVD Carotids: normal carotid upstroke Chest Chest inspection: normal inspection of the chest, symmetric chest movement and normal respiratory effort; Negative cough Auscultation: Bilateral: Clear to Auscultation Cardio Rate: regular rate Rhythm: regular rhythm Heart sounds: S1 normal and S2 normal; Negative rub, gallop or murmur GI GI: normal to inspection Neuro General: patient alert, patient awake, patient oriented x3 and CN's II-XI intact bilaterally Skin Skin: no rashes or lesions noted Extremities Pulses: Normal: Right Posterior Tibial Pulse, Left Posterior Tibial Pulse, Right Radial Pulse and Left Radial Pulse Lower Extremity Edema: None: Bilateral Psych Psychological: normal affect Supplemental Info Supplemental Information Pharmacologic myocardial perfusion stress test 08/02/2021 Conclusion: Normal pharmacologic myocardial perfusion stress test. Preserved ejection fraction. Echocardiogram from 01/20/2022: Interpretation Summary Normal LV size. Left ventricular systolic function is normal. The estimated ejection fraction is 55 %. Stage 1 diastolic dysfunction. Contrast injection was performed. Echocardiogram 03/13/2016: Interpretation Summary Normal LV size. Left ventricular systolic function is normal. Estimate ejection fraction is 65%. ICD or pacer leads identified within the right ventricle. Structurally normal valves. Assessment and Plan Assessment and Plan (1) Essential (primary) hypertension: Status: Chronic Plan: Patient's blood pressure is well-controlled. He will continue verapamil therapy for both heart rate and blood pressure control. We will continue to monitor. At the moment, he does not acknowledge significant side effects as he did note facial flushing and fatigue with diltiazem. He does acknowledge some sun exposure related issues with verapamil that we will monitor. (2) Biventricular cardiac pacemaker in situ: Status: Chronic Plan: Twelve-lead ECG on 07/16/2023 shows ventricular paced rhythm at 75 bpm. He will proceed with generator change. We will continue to monitor this with routine/scheduled follow-ups. (3) Atrial flutter: Status: Chronic Qualifiers: Atrial flutter type: unspecified Qualified Code(s): I48.92 - Unspecified atrial flutter Plan: His previous device check showed atrial fibrillation 0.1% with longest episode lasting approximately 38 minutes. This is a noted increase in duration compared to previous. On account of such, he was started on Eliquis therapy. His [id number] score of 3 (age +2, HTN). We will continue to follow duration and frequency through device checks. He will continue with verapamil for rate control. He will continue with Eliquis for CVA protection.
[2023-08-14 09:58] VITALS: BMI 29.2
[2023-08-17 10:50] LABS: Hemoglobin 12.4 g/dL (13.0-16.5); Mean Corp Hgb Conc 31.8 g/dL (32-36); Mean Corpuscular Volume 97.5 fL (80-94); Mean Platelet Vol. 10.8 fl (6.2-12.0); Platelet Count 229 K/mm3 (150-450); RBC Distribution Width CV 13.7 % (11.6-14.6); RBC Distribution Width SD 49.5 fl (35.1-43.9); White Blood Count 6.2 K/mm3 (4.4-11.0)
[2023-08-17 11:05] LABS: Anion Gap 3 (5-15); BUN 21 mg/dL (7-18); BUN/Creat Ratio 23.8 RATIO (10-20); Calcium,Total 8.9 mg/dL (8.5-10.1); Chloride 108 mmol/L (98-107); Creatinine, Serum 0.88 mg/dL (0.70-1.30); EST Glomerular Filtration Rate 89 mL/min (>60); Est Glom Filt Rate - Afr Amer 107 mL/min (>60); Estimated Creatinine Clearance 68.01 ml/min; Glucose 96 mg/dL (74-106); Potassium 4.4 mmol/L (3.5-5.1); Sodium Level 140 mmol/L (136-145)
--- NOTE | 2023-08-17 12:43 | CL.IE_ITS ---
Patient: MOO ORTEZ Study Date: 08/17/2023 Performing: Donald Burt MD : 1945 Age: 78 Gender: male PROCEDURES PERFORMED [id number]-([id number])BATTERY REMOVAL+REPLACEMENT PACER-MULTI LEADS (BI-V) INDICATIONS Mobitz (type II) AV block PROCEDURE DETAILS The patient was brought to the Catheterization Lab in the postabsorptive nonsedated state. Informed consent was obtained prior to the procedure. Local anesthetic was given subcutaneously to the left upper chest area with Lidocaine 2%. Incision was made to the left upper chest. PPM generator was removed. PPM ventricular lead (existing) was checked and tested. PPM atrial lead (existing) was checked and tested. PPM ventricular lead (existing) was checked and tested. PPM generator was attached to the lead(s) and inserted into pocket. Device pocket was irrigated with antibiotic. Subcutaneous closure was completed with 3-0 Vicryl. Skin closure was completed with 4-0 Vicryl. Instrument, sponge, and needle counts were noted to be normal. The patient tolerated the procedure well. Estimated Blood Loss: 10 ml's IMPLANTED / EX-PLANTED DEVICES IMPLANTED DEVICE(S): PPM Generator - Supervisor Capacitor Processing: [id number], Model # [id number] , Serial # [id number] DEVICE PARAMETERS DEVICE PARAMETERS: Mode - DDDR lower rate - 60 upper rate - 130 rate response on Mode- DDDR Lower rate- 60 Upper rate- 130 CONCLUSIONS / RECOMMENDATIONS Device Conclusions: Successful implantation of a bi-v pacemaker battery change and replacement Device Recommendations: Follow up with Primary Care Physician PROCEDURE MEDICATIONS Fentanyl 50 mcg IV Versed 1 mg IV Versed 1 mg IV Oxygen: 2 L/min via nasal cannula Antibiotic given in appropriate timeframe. Ancef 2 Gm IV @ 08/17/2023 11:39:47 Signed By Donald Burt MD On 08/17/2023 12:54:56 PM Signed By Donald Burt MD On 08/17/2023 12:42:34 Donald Burt MD
== END 2023-08-17 14:00 | disposition home or self-care (01) ==
PROVIDERS: Nurse Practitioner Family; PCP Family Medicine; Referring Provider Internal Medicine Cardiovascular Disease; Visit Provider Internal Medicine Cardiovascular Disease
DX: Z45.018 Encounter for adjustment and management of other part of cardiac pacemaker (principal); I48.0 Paroxysmal atrial fibrillation; I10 Essential (primary) hypertension; I44.1 Atrioventricular block, second degree
CPT/HCPCS: 33229; 36415; 80048; 85027; 99152; 99153; J7040; J7050

== ENCOUNTER → 2023-10-07 | Outpatient (CLI) | payer MEDICARE, OTHER, SELFPAY ==
--- NOTE | 2023-10-07 12:48 | CDU_ITS ---
Reason For Study: Carotid Stenosis Rt. Velocities/BP Lt. Velocities/BP Prox CCA 63.9/12.8 cm/sec. Prox CCA 76.9/21.6 cm/sec. Mid CCA 66.7/21.4 cm/sec. Mid CCA 96.5/22.8 cm/sec. Dist CCA 48.7/15.7 cm/sec. Dist CCA 63.4/17.9 cm/sec. Prox ICA 128.9/43.1 cm/sec. Prox ICA 81.8/27.8 cm/sec. Mid ICA 118.0/39.5 cm/sec. Mid ICA 63.4/17.9 cm/sec. Dist ICA 97.9/32.1 cm/sec. Dist ICA 75.4/27.0 cm/sec. Rt. ICA/CCA = 1.8. Lt. ICA/CCA = 0.9. Prox ECA 114.3/21.2 cm/sec. Prox ECA 66.7/15.7 cm/sec. Rt. Vert. 39.3/13.8 cm/sec. Lt. Vert. 33.7/12.7 cm/sec. Right Extracranial There is homogeneous, smooth atherosclerotic plaque noted in the right common carotid artery. There is heterogeneous, smooth atherosclerotic plaque noted in the right internal carotid artery. There is heterogeneous, irregular atherosclerotic plaque noted in the right external carotid artery. Antegrade flow is noted in the right vertebral artery. There is heterogeneous, smooth atherosclerotic plaque noted in the right bulb. Soft Plaque noted. Left Extracranial There is homogeneous, smooth atherosclerotic plaque noted in the left common carotid artery. There is heterogeneous, irregular atherosclerotic plaque noted in the left internal carotid artery. There is heterogeneous, irregular atherosclerotic plaque noted in the left external carotid artery. Antegrade flow is noted in the left vertebral artery. Procedure Carotid Duplex 37539. This is a Carotid Duplex examination using B-mode, color flow and specral Doppler. The exam was diagnostic. Exam performed in department. VL/Carotid Duplex Ultrasound Interpretation Summary Moderately extensive smooth heterogenous plaque at the proximal right internal carotid artery with 50 to 69% stenosis Less than 50% stenosis right external carotid artery Irregular calcific plaque with shadowing at the proximal left internal carotid artery with less than 50% stenosis Less than 50% stenosis left external carotid artery Patent and antegrade vertebral arteries bilaterally Findings appear similar to a screening examination of January 01, 2022 Ordering Physician: Richie Tan Referring Physician: Paul Mac Performed By: Diony Sr RVT
--- NOTE | 2023-10-07 12:48 | ART_ITS ---
Reason For Study: PVD Procedure A bilateral lower extremity continuous wave Doppler with analog waveform analysis,segmental pressures,and ankle brachial indexes with exercise. Left Segmental Pressures Left brachial= 131mmHg. Left thigh = 167mmHg. Left calf = 121mmHg. Left posterior tibial artery = 120mmHg. Left dorsalis pedis artery = 108mmHg. Right Segmental Pressures Right brachial= 125mmHg. Right thigh = 170mmHg. Right calf = 113mmHg. Right posterior tibial artery = 110mmHg. Right dorsalis pedis artery = 117mmHg. Indices The right ankle brachial index by the posterior tibial artery is 0.84. The right ankle brachial index by the dorsalis pedis is 0.89. The right post exercise ankle brachial index is 0.73. The left ankle brachial index by the posterior tibial artery is 0.92. The left ankle brachial index by the dorsalis pedis is 0.82. The left post exercise ankle brachial index is 0.82. VL/Lower Ext Art Exam w/ Exercise Interpretation Summary Abnormal right lower extremity PT and DP ankle-brachial indices of 0.84 and 0.8 9 respectively with biphasic Doppler waveforms consistent with moderately severe occlusive disease. With exercise the right BISI goes from 0.89 to immediately after exercise at 0.7 3 with recovery at 3 minutes. This is an abnormal response. Abnormal left lower extremity PT and DP ankle-brachial index of 0.92 and 0.82 r espectively at rest with biphasic waveforms at the posterior tibialis and triphasic waveforms at th e dorsalis pedis consistent with moderately severe occlusive disease. With exercise the left BISI goes from a resting 0.9-2 immediate after exercise a t 0.82 with recovery by 3 minutes. This is an abnormal response. The patient had a screening examination on January 01, 2022 with resting ABIs sim ilar to the above. Ordering Physician: Richie Tan Referring Physician: Paul Mac Performed By: Diony Sr RVT
--- OUTSIDE RECORDS SUMMARY | 2023-10-07 13:07 | XMS RPT_ITS | CCD ---
Author Name Unknown Address [address] [place] [address] Organization [facility] Care Team Providers Care Instrumentation Engineering Technician Name Role Phone ALESSANDRO Gunn Sue M Unavailable Unavailable ALESSANDRO Gunn Sue M Unavailable Unavailable JOO Mina, Stacy Pitt Unavailable [phone] JOO Mina, Stacy Pitt Unavailable [phone] ALESSANDRO Gunn Sue M Unavailable Unavailable ALESSANDRO Gunn Sue M Unavailable Unavailable DeFinis, Harumi Y Unavailable Unavailable NO, DOCTOR ON Consulting Unavailable LILLIAM, DR DARLENE Koroma Admitting Unavaila ble LILLIAM, DR DARLENE Koroma Primary Care Unavaila ble LILLIAM, DR DARLENE Koroma Attending Unavaila ble LILLIAM, DR DARLENE Koroma Admitting Unavaila ble LILLIAM, DR DARLENE Koroma Primary Care Unavaila ble LILLIAM, DR DARLENE Koroma Attending Unavaila ble NO, DOCTOR ON Consulting Unavailable Joaquin Grady MD Primary Care Provider Medications Completed/Discontinued Medications Medication Drug Class(es) Dates Sig (Normalized) Sig (Original) ALPRAZolam 0.25 mg oral tablet (11 sources) Benzodiazepine Start: 07-25-2015 ALPRAZolam (XANAX) 0.25 mg tablet Take 0.25 mg by mouth as needed. 0 07/25/2015 Active Problems Active Problems Problem Classification Problem Date Documented Da te Episodic/Chronic Abdominal hernia (9 sources) Hiatal hernia; Translations: [Diaphragmatic hernia without obstruction or gangrene] Onset: 08-15-2011 07-31-2011 Episodic Cardiac dysrhythmias (8 sources) Sinus bradycardia; Translations: [Bradycardia, unspecified] Onset: 07-20-2015 07-20-2015 Chronic Conduction disorders (20 sources) Automatic implantable cardiac defibrillator in situ; Translations: [Cardiac pacemaker in situ] Onset: 07-20-2015 Resolved: 03-10-2016 08-02-2015 Chronic Congestive heart failure; nonhypertensive (8 sources) Acute systolic heart failure; Translations: [Acute systolic (congestive) heart failure] Onset: 07-20-2015 07-20-2015 Chronic Esophageal disorders (3 sources) Esophageal dysmotility; Translations: [Dyskinesia of esophagus] Onset: 08-15-2011 08-15-2011 Chronic Essential hypertension (8 sources) Hypertensive disorder; Translations: [Essential (primary) hypertension] Onset: 07-20-2015 07-20-2015 Chronic Other and ill-defined heart disease (8 sources) Heart disease; Translations: [Other ill-defined heart diseases] Onset: 07-31-2015 07-31-2015 Chronic Other gastrointestinal disorders (3 sources) Dysphagia; Translations: [Dysphagia, unspecified] 11-10-2014 Episodic Sandra-; endo-; and myocarditis; cardiomyopathy (except that caused by tuberculosis or sexually transmitted disease) (8 sources) Cardiomyopathy in diseases classified elsewhere; Translations: [Cardiomyopathy in diseases classified elsewhere] Onset: 07-20-2015 07-20-2015 Chronic Spondylosis; intervertebral disc disorders; other back problems (6 sources) Chronic low back pain; Translations: [Lumbago with sciatica, left side] Onset: 02-13-2022 Episodic Past or Other Problems Problem Classification Problem Date Documented Da te Episodic/Chronic Esophageal disorders (3 sources) Esophagitis; Translations: [Esophagitis, unspecified] Onset: 08-15-2011 08-15-2011 Episodic Other connective tissue disease (12 sources) Hand pain; Translations: [Acquired trigger finger] Onset: 06-06-2016 06-06-2016 Episodic Other connective tissue disease (4 sources) Acquired trigger finger; Translations: [Trigger finger, right little finger] Onset: 06-06-2016 06-06-2016 Episodic Other gastrointestinal disorders (3 sources) Dysphagia, unspecified; Translations: [Dysphagia, unspecified] Onset: 08-15-2011 08-15-2011 Episodic Other nervous system disorders (7 sources) Spasm; Translations: [Other muscle spasm] Onset: 02-20-2017 02-20-2017 Episodic Other nutritional; endocrine; and metabolic disorders (11 sources) Body mass index (BMI) 27.0-27.9, adult; Translations: [Body mass index (BMI) 29.0-29.9, adult] Onset: 02-14-2016 02-20-2017 Episodic Other nutritional; endocrine; and metabolic disorders (4 sources) Body mass index (BMI) 29.0-29.9, adult; Translations: [Body mass index (BMI) 29.0-29.9, adult] Onset: 02-14-2016 02-14-2016 Episodic Results Test Name Value Interpretation Reference Range Facil ity Vital Signs Date Time Vital Sign Value Performing Clinician Cristino andrews 02-20-2017 07:53-0400 BMI (Body Mass Index) 27.52 kg/m2 Stacy Mina PA-C [facility] Work Phone: 02-20-2017 07:53-0400 BP Diastolic 72 mm[Hg] Stacy Mina PA-C [facility] Work Phone: 02-20-2017 07:53-0400 BP Systolic 130 mm[Hg] Stacy Mina PA-C [facility] Work Phone: 02-20-2017 07:53-0400 Height 172.72 cm Stacy Mina PA-C [facility] Work Phone: 02-20-2017 07:53-0400 Pulse (Heart Rate) 68 /min Stacy Mina PA-C [facility] Work Phone: 02-20-2017 07:53-0400 Respiratory Rate 16 /min Stacy Mina PA-C [facility] Work Phone: 02-20-2017 07:53-0400 Weight 82.1 kg Stacy Mina PA-C [facility] Work Phone: 08-15-2016 09:50-0500 BMI (Body Mass Index) 29.19 kg/m2 Jenna Mehta [facility] Work Phone: 08-15-2016 09:50-0500 Body weight 87.09 kg Harroosevelt Mehta [facility] Work Phone: 08-15-2016 09:50-0500 BP Diastolic 68 mm[Hg] Har[place]osevelt [employer] Work Phone: 08-15-2016 09:50-0500 BP Systolic 128 mm[Hg] [place] [employer] Work Phone: 08-15-2016 09:50-0500 BSA (Body Surface Area) 2.01 m2 [place] [facility] Work Phone: 08-15-2016 09:50-0500 Height 172.72 cm Har[place]osevelt [employer] Work Phone: 08-15-2016 09:50-0500 Pulse (Heart Rate) 80 /min [place] [facility] Work Phone: 08-15-2016 09:50-0500 Respiratory Rate 18 /min Jenna [facility] Work Phone: 08-15-2016 09:50-0500 Weight 87.09 kg Stacy Mina PA-C [facility] Work Phone: 07-25-2015 14:21-0500 Heart rate 81 /min Jenna [facility] Work Phone: Encounters Encounter Date Encounter Type Care Provider Facility Start: 03-10-2022 End: 03-10-2022 ambulatory Conor Weaver PT [facility] Physical Therapy Procedures Date Procedure Procedure Detail Performing Clinician Start: 04-13-2017 End: 04-13-2017 Pm device progr eval, multi Stacy Rodriguez PA-C Work Phone: Start: 02-20-2017 End: 02-20-2017 *BMP Stacy Mina PA-C Work Phone: Start: 02-20-2017 End: 02-20-2017 LOCK SETTER Stacy Mina PA-C Work Phone: Start: 02-20-2017 End: 02-20-2017 Follow Up Appt 6 months Stacy pitt PA-C Work Phone: Start: 02-20-2017 End: 02-20-2017 Augie Mina PA-C Work Phone: Start: 12-31-2016 End: 02-04-2017 Follow Up Appt 3 months Sweetie Lopez Start: 12-31-2016 End: 02-04-2017 Pacer Clinic Donald Burt MD Start: 12-31-2016 End: 01-07-2017 Pm device interrogate remote Donald dejesus MD Start: 09-17-2016 End: 02-04-2017 Follow Up Appt 3 months Sweetie Lopez Start: 09-17-2016 End: 02-04-2017 Pacer Clinic Donald Burt MD Start: 09-17-2016 End: 09-17-2016 Pm device interrogate remote Donald dejesus MD Start: 08-15-2016 End: 08-15-2016 Dietary management education, guidance, and counseling Jenna Mehta Start: 08-15-2016 End: 08-15-2016 Documentation of current medications Jenna Mehta Start: 08-15-2016 End: 08-15-2016 Follow Up Appt 6 months Sweetie Lopez Start: 08-15-2016 End: 08-15-2016 MM Donald Burt MD Start: 06-11-2016 End: 02-04-2017 Follow Up Appt 3 months Sweetie Lopez Start: 06-11-2016 End: 02-04-2017 Pacer Clinic Donald Burt MD Start: 06-11-2016 End: 06-11-2016 Pm device interrogate remote Donald dejesus MD Start: 06-06-2016 End: 09-23-2016 Drain/inject, joint/bursa Kalie Eduardo garcia Work Phone: Start: 03-05-2016 End: 03-20-2016 Follow Up Appt 3 months Sweetie Lopez Start: 03-05-2016 End: 03-20-2016 Pacer Clinic Donald Burt MD Start: 03-05-2016 End: 03-10-2016 Pm device interrogate remote Donald dejesus MD Start: 02-14-2016 End: 02-14-2016 LOCK SETTER Stacy Mina PA-C Work Phone: Start: 02-14-2016 End: 03-13-2016 Echocardiography Stacy Mina PA-C Work Phone: Start: 02-14-2016 End: 02-14-2016 Follow Up Appt 6 months Stacy pitt PA-C Work Phone: Start: 11-30-2015 End: 01-29-2016 Follow Up Appt 3 months Sweetie Lopez Start: 11-30-2015 End: 01-29-2016 Pacer Clinic Donald Burt MD Start: 11-30-2015 End: 12-05-2015 Pm device interrogate remote Donald dejesus MD Start: 08-27-2015 End: 01-29-2016 Follow Up Appt 3 months Stacy pitt PA-C Work Phone: Start: 08-27-2015 End: 01-29-2016 Pacer Clinic Stacy Mina PA-C Work Phone: Start: 08-27-2015 End: 08-27-2015 Pm device progr eval, multi Stacy Rodriguez PA-C Work Phone: Start: 08-02-2015 End: 01-29-2016 Follow Up Appt 1 month Donald uBrt MD Start: 08-02-2015 End: 01-29-2016 Pacer Clinic Donald Burt MD Start: 08-02-2015 End: 08-02-2015 Pm device progr eval, multi Donald Hankins i, MD Start: 07-31-2015 End: 01-29-2016 Nuclear stress test -Lexiscan Donald Mccarthy MD Start: 07-25-2015 End: 01-29-2016 Device Interrogation Donald Burt MD Start: 07-25-2015 End: 07-26-2015 Documentation of current medications Donald Burt MD Start: 07-25-2015 End: 01-29-2016 Electrocardiogram, complete Donald Hankins i, MD Start: 07-25-2015 End: 01-29-2016 Follow Up Appt 6 months Sweetie Lopez Start: 07-25-2015 End: 01-29-2016 MMM Donald Burt MD Start: 07-23-2015 End: 07-23-2015 Nurse, Teaching, Wound Check (no charge) Donald Burt MD Plan of Treatment Date Care Activity Detail Author Start: 09-14-2021 ADVANCE DIRECTIVE DISCUSSION ADVANCE DIRECTIVE DISCUSSION [facility] Start: 09-24-2017 End: 09-24-2017 Appointment Appointment [facility] Work Phone: Start: 04-13-2017 End: 04-13-2017 Appointment Appointment [facility] Work Phone: Start: 04-13-2017 End: 04-13-2017 Follow Up Appt 3 months Follow Up Appt 3 months [facility] Work Phone: Start: 04-13-2017 End: 04-13-2017 Pacer Clinic [facility] Work Phone: Start: 04-10-2017 End: 04-10-2017 Appointment Appointment [facility] Work Phone: Start: 02-20-2017 End: 02-20-2017 Appointment Appointment [facility] Work Phone: Start: 02-20-2017 End: 02-20-2017 *BMP *BMP [facility] Work Phone: Start: 02-20-2017 End: 02-20-2017 LOCK SETTER LOCK SETTER [facility] Work Phone: Start: 02-20-2017 End: 02-20-2017 Follow Up Appt 6 months Follow Up Appt 6 months [facility] Work Phone: Start: 02-20-2017 End: 02-20-2017 Magnesium *Magnesium [facility] Work Phone: Start: 12-31-2016 End: 02-04-2017 Follow Up Appt 3 months Follow Up Appt 3 months [facility] Work Phone: Start: 12-31-2016 End: 02-04-2017 Pacer Clinic [facility] Work Phone: Start: 09-17-2016 End: 02-04-2017 Follow Up Appt 3 months Follow Up Appt 3 months [facility] Work Phone: Start: 09-17-2016 End: 02-04-2017 Pacer Clinic Pac[facility] Clinic [facility] Work Phone: Start: 08-15-2016 End: 08-15-2016 Follow Up Appt 6 months Follow Up Appt 6 months [facility] Work Phone: Start: 08-15-2016 End: 08-15-2016 MMM MMM [facility] Work Phone: Start: 06-11-2016 End: 02-04-2017 Follow Up Appt 3 months Follow Up Appt 3 months [facility] Work Phone: Start: 06-11-2016 End: 02-04-2017 Pacer Clinic [facility] Work Phone: Start: 06-06-2016 End: 06-06-2016 X-ray exam of hand X-Ray, Hand [facility] Work Phone: Start: 03-05-2016 End: 03-20-2016 Follow Up Appt 3 months Follow Up Appt 3 months [facility] Work Phone: Start: 03-05-2016 End: 03-20-2016 Pacer Clinic [facility] Work Phone: Start: 02-14-2016 End: 02-14-2016 LOCK SETTER LOCK SETTER [facility] Work Phone: Start: 02-14-2016 End: 02-14-2016 Echocardiography Echocardiogram (complete) [facility] Work Phone: Start: 02-14-2016 End: 02-14-2016 Follow Up Appt 6 months Follow Up Appt 6 months [facility] Work Phone: Start: 11-30-2015 End: 01-29-2016 Follow Up Appt 3 months Follow Up Appt 3 months [facility] Work Phone: Start: 11-30-2015 End: 01-29-2016 Pacer Clinic [facility] Work Phone: Start: 08-27-2015 End: 01-29-2016 Follow Up Appt 3 months Follow Up Appt 3 months [facility] Work Phone: Start: 08-27-2015 End: 01-29-2016 Pacer Clinic Pac[facility] Clinic [facility] Work Phone: Start: 08-02-2015 End: 01-29-2016 Follow Up Appt 1 month Follow Up Appt 1 month [facility] Work Phone: Start: 08-02-2015 End: 01-29-2016 Pacer Clinic [facility] Work Phone: Start: 07-31-2015 End: 01-29-2016 Nuclear stress test -Lexiscan Nuclear stress test -Lexiscan [facility] Work Phone: Start: 07-25-2015 End: 01-29-2016 Device Interrogation Device Interrogation [facility] Work Phone: Start: 07-25-2015 End: 01-29-2016 Electrocardiogram, complete EKG (In office) [facility] Work Phone: Start: 07-25-2015 End: 01-29-2016 Follow Up Appt 6 months Follow Up Appt 6 months [facility] Work Phone: Start: 07-25-2015 End: 01-29-2016 MMM MMM [facility] Work Phone: Start: 2011 PNEUMOCOCCAL: 65+ (1 - PCV) PNEUMOCOCCAL: 65+ (1 - PCV) [facility] Start: 01-17-1996 SHINGRIX VACCINE (1 of 2) SHINGRIX VACCINE (1 of 2) [facility] Start: 1991 DIABETES SCREEN DIABETES SCREEN [facility] Start: 1965 Urine microalbumin profile DTAP,TDAP,TD (1 - Tdap) [facility] Start: 01-17-1964 HEPATITIS C SCREENING HEPATITIS C SCREENING [facility] Start: 1958 Adult depression screening assessment DEPRESSION SCREENING [facility] Payers Date Payer Category Payer Private Health Insurance [employer] A ETNA MEDICARE SUPPLEMENT [id number] 2014-Present [phone] [address] [address] [place] [address] Indemnity [id number] 2011 Medicare MEDICARE MEDICAR E A AND B [id number] 2011-Present [phone] [address] [address] [place] [address] Medicare [id number] 1945 Unknown [id number] 1945 Unknown [id number] Medicare [id number] Social History Date Type Detail Facility Tobacco smoking stat [facility] Never smoked tobacco [facility] Start: 04-08-2019 Alcohol intake Current non-dr infant caregiver of alcohol (finding) [facility] Start: 1945 Sex Assigned At Not on file [facility] Start: 02-21-2022 End: 03-10-2022 Exposure to SARS-CoV-2 (event) Not sure [facility] Progress note 03-10-2022 Note Date & Type Note Facility 03-10-2022 Note HNO ID: [id number] Author: Conor Weaver PT Service: ? Author Type: Physical Therapist Type: Progress Notes Filed: 03/10/2022 4:21 PM Note Text: Episode Visit Count: 3 Therapist That Will Oversee The Plan Of Care: Conor Weaver Start of Care Date: 02/13/22 Onset Date: 01/23/22 Plan of Care Certification Date: 02/13/22 Next Certification Due Date: 05/16/22 REHABILITATION AND SPORTS THERAPY PHYSICAL THERAPY PROGRESS REPORT PLAN OF CARE UPDATE: Assessment: Moo Horowitz demonstrates minimal improvement in rising from a chair, standing, walking and bending. He hasprogressed toward goals. Patient continues to present with impairments in ADL's, overall function, range of motion, strength and symptom management that interfere with standing;bending;heavy exertion;physical activities;lifting;recreational activities;working . Current prognosis is Good due to: current objective clinical presentation;within-session changes;good support system/ coping skills . He will benefit from continued skilled therapy services to meet the updated goals for this plan of care as noted below. Goals updated on 03/10/2022. Goals for Episode of Care: created on 02/13/22 through 04/15/22 Independent in home exercises. Progressing towards Patient will decrease pain rating by 2 points to meet minimal clinical important difference for numeric pain rating scale. Progressing towards Restore pain-free lumbar ROM to minimal limitations to allow for improved functional mobility and decreased pain. Progressing towards Stand / Walk as needed for ADLs without pain/symptoms. Progressing towards Patient will increase strength of trunk/core to 5/5 to allow for improve ability to complete ADLs. Progressing towards Planned Interventions, Frequency, and Duration: 1x/week, 4 weeks Total Number of Visits Planned: 4 Patient to be seen for Therapeutic exercise (05136);Neuromuscular re-education (65535);Manual therapy (06891);Therapeutic activities (98263);Self-mcfp management (67068);Patient/Family/Caregiver Education;Body Mechanics Training SUBJECTIVE: Patient Reason for Visit: Pt reports some slight improvements in symptoms, noting possible decrease in intensity of pain. He is just getting back into doing some of his higher level activities, like wood working, etc. Notes prolonged leaning/bending gets him the most. Functional Limitations: standing;bending;heavy exertion;physical activities;lifting;recreational activities;working Pain: Pain Pain Level: 3 Pain Location: Low Back/Lumbar Spine - Left Description: Sore;Aching Frequency: Continuous PROMIS Scales T-scores: mean of general population = 50. 5 points is clinically meaningfully difference Percentiles provide an indication of how the patient's score ranks in relation to the general population. Higher percentile rankings indicate better function/quality of life. 50th percentile is the average of the general population and indicates half of respondents had a worse score. T-scores: mean of general population = 50. 5 points is clinically meaningfully difference Percentiles provide an indication of how the patient's score ranks in relation to the general population. Higher percentile rankings indicate better function/quality of life. 50th percentile is the average of the general population and indicates half of respondents had a worse score. OBJECTIVE MEASURES WITH LEVEL OF FUNCTION: Lumbar Spine AROM Lumbar Flexion: Normal Lumbar Extension: Minimal limitation Lumbar R Side-Bend: Minimal limitation Lumbar L Side-Bend: Minimal limitation Lumbar R Rotation: Minimal limitation Lumbar L Rotation: Minimal limitation LE Flexibility R Hamstring Flexibility: Minimal limitation L Hamstring Flexibility: Minimal limitation LE Strength Trunk Strength: 4/5 TREATMENT: Therapeutic Exercise: 1: *SKC 3x30 sec on L 2: *Trunk rotations 3x20/side 3: TA bracing 3x10, 5 sec holds 4: TA bracing with hip hikes 3x10 5: TA bracing with BKFO 3x10/side 6: *QL stretch on L 3x20 sec 7: *PTB pallof press 2x10/side 8: Recheck of all objective measures Skilled Intervention: Patient was educated in proper exercise technique and purpose for exercises. Skilled judgment was provided in selection of appropriate interventions. Provided written instruction for home exercise program to facilitate proper performance and compliance. Correct performance of therapeutic exercises was facilitated with verbal, visual and tactile cuing. Patient education as noted. Manual Therapy: 1: Manual lumbar belt traction x10 min (pt required pillow in front of and behind legs) Skilled Intervention: Manual skills to improve joint mobility, ROM, and decrease pain. Utilized anatomy knowledge of the therapist, and assessment of patient's response to intervention. Billing Therapeutic Exercise Treatment Minutes: 38 Manual TherapyTreatment Minutes: 10 Total Juanita (more content not included)... [facility] History of Present illness Narrative 03-10-2022 Conoryovany Weaver, PT - 03/10/2022 4:19 PM EDT Note Date & Type Note Facility 03-10-2022 History of Presen t illness Narrative Episode Visit Count: 3 Therapist That Will Oversee The Plan Of Care: Conor Weaver Start of Care Date: 02/13/22 Onset Date: 01/23/22 Plan of Care Certification Date: 02/13/22 Next Certification Due Date: 05/16/22 REHABILITATION AND SPORTS THERAPY PHYSICAL THERAPY PROGRESS REPORT PLAN OF CARE UPDATE: Assessment: Moo Horowitz demonstrates minimal improvement in rising from a chair, standing, walking and bending. He hasprogressed toward goals. Patient continues to present with impairments in ADL's, overall function, range of motion, strength and symptom management that interfere with standing;bending;heavy exertion;physical activities;lifting;recreational activities;working . Current prognosis is Good due to: current objective clinical presentation;within-session changes;good support system/ coping skills . He will benefit from continued skilled therapy services to meet the updated goals for this plan of care as noted below. Goals updated on 03/10/2022. Goals for Episode of Care: created on 02/13/22 through 04/15/22 Independent in home exercises. Progressing towards Patient will decrease pain rating by 2 points to meet minimal clinical important difference for numeric pain rating scale. Progressing towards Restore pain-free lumbar ROM to minimal limitations to allow for improved functional mobility and decreased pain. Progressing towards Stand / Walk as needed for ADLs without pain/symptoms. Progressing towards Patient will increase strength of trunk/core to 5/5 to allow for improve ability to complete ADLs. Progressing towards Planned Interventions, Frequency, and Duration: 1x/week, 4 weeks Total Number of Visits Planned: 4 Patient to be seen for Therapeutic exercise (17023);Neuromuscular re-education (35652);Manual therapy (95739);Therapeutic activities (49973);Self-mcfp management (68421);Patient/Family/Caregiver Education;Body Mechanics Training SUBJECTIVE: Patient Reason for Visit: Pt reports some slight improvements in symptoms, noting possible decrease in intensity of pain. He is just getting back into doing some of his higher level activities, like wood working, etc. Notes prolonged leaning/bending gets him the most. Functional Limitations: standing;bending;heavy exertion;physical activities;lifting;recreational activities;working Pain: Pain Pain Level: 3 Pain Location: Low Back/Lumbar Spine - Left Description: Sore;Aching Frequency: Continuous PROMIS Scales T-scores: mean of general population = 50. 5 points is clinically meaningfully difference Percentiles provide an indication of how the patient's score ranks in relation to the general population. Higher percentile rankings indicate better function/quality of life. 50th percentile is the average of the general population and indicates half of respondents had a worse score. T-scores: mean of general population = 50. 5 points is clinically meaningfully difference Percentiles provide an indication of how the patient's score ranks in relation to the general population. Higher percentile rankings indicate better function/quality of life. 50th percentile is the average of the general population and indicates half of respondents had a worse score. OBJECTIVE MEASURES WITH LEVEL OF FUNCTION: Lumbar Spine AROM Lumbar Flexion: Normal Lumbar Extension: Minimal limitation Lumbar R Side-Bend: Minimal limitation Lumbar L Side-Bend: Minimal limitation Lumbar R Rotation: Minimal limitation Lumbar L Rotation: Minimal limitation LE Flexibility R Hamstring Flexibility: Minimal limitation L Hamstring Flexibility: Minimal limitation LE Strength Trunk Strength: 4/5 TREATMENT: Therapeutic Exercise: 1: *SKC 3x30 sec on L 2: *Trunk rotations 3x20/side 3: TA bracing 3x10, 5 sec holds 4: TA bracing with hip hikes 3x10 5: TA bracing with BKFO 3x10/side 6: *QL stretch on L 3x20 sec 7: *PTB pallof press 2x10/side 8: Recheck of all objective measures Skilled Intervention: Patient was educated in proper exercise technique and purpose for exercises. Skilled judgment was provided in selection of appropriate interventions. Provided written instruction for home exercise program to facilitate proper performance and compliance. Correct performance of therapeutic exercises was facilitated with verbal, visual and tactile cuing. Patient education as noted. Manual Therapy: 1: Manual lumbar belt traction x10 min (pt required pillow in front of and behind legs) Skilled Intervention: Manual skills to improve joint mobility, ROM, and decrease pain. Utilized anatomy knowledge of the therapist, and assessment of patient's response to intervention. Billing Therapeutic Exercise Treatment Minutes: 38 Manual TherapyTreatment Minutes: 10 Total Treatment Time Minutes (timed/untimed): 48 Conor Weaver PT documented in this encounter [facility] Progress note 03-03-2022 Note Date & Type Note Facility 03-03-2022 Note HNO ID: [id number] Author: Conor eWaver PT Service: ? Author Type: Physical Therapist Type: Progress Notes Filed: 03/03/2022 1:41 PM Note Text: Episode Visit Count: 2 Therapist That Will Oversee The Plan Of Care: Conor Weaver Start of Care Date: 02/13/22 Onset Date: 01/23/22 Plan of Care Certification Date: 02/13/22 Next Certification Due Date: 05/16/22 REHABILITATION AND SPORTS THERAPY PHYSICAL THERAPY TREATMENT NOTE ASSESSMENT: Moo Horowitz tolerated the session with decreased symptoms. He demonstrated difficulty with HEP follow through due to lack of understanding. Patient verbally stating greater understanding at end of treatment. The patient will continue to benefit from ongoing skilled physical therapy to progress toward set goals. PLAN FOR NEXT VISIT: MD SUBJECTIVE: Patient Reason for Visit: Pt feels slightly better, but still the pain across the left lower back Pain: Pain Pain Level: 4 Pain Location: Low Back/Lumbar Spine - Left Description: Sore;Aching Frequency: Continuous OBJECTIVE MEASURES WITH LEVEL OF FUNCTION: Traction improves symptoms TREATMENT: Therapeutic Exercise: 1: *SKC 3x30 sec on L 2: *Trunk rotations 3x20/side 3: L sciatic nerve flossing 3x10, 5 sec holds 4: TA bracing 3x10, 5 sec holds 5: TA bracing with hip hikes 3x10 (Ceased due to hip pain, likely originating from the joint) 6: *TA bracing with BKFO 3x10/side (Remarked patients HEP sheets to denote which exercises he needs to be doing after it was discovered he only did a couple of them) Skilled Intervention: Patient was educated in proper exercise technique and purpose for exercises. Skilled judgment was provided in selection of appropriate interventions. Provided written instruction for home exercise program to facilitate proper performance and compliance. Correct performance of therapeutic exercises was facilitated with verbal, visual and tactile cuing. Patient education as noted. Manual Therapy: 1: Manual lumbar belt traction x10 min Skilled Intervention: Manual skills to improve joint mobility, ROM, and decrease pain. Utilized anatomy knowledge of the therapist, and assessment of patient's response to intervention. Billing Therapeutic Exercise Treatment Minutes: 30 Manual TherapyTreatment Minutes: 10 Total Treatment Time Minutes (timed/untimed): 40 Conor Weaver PT [facility] History of Present illness Narrative 03-03-2022 Conor Weaver PT - 03/03/2022 1:36 PM EDT Note Date & Type Note Facility 03-03-2022 History of Presen t illness Narrative Episode Visit Count: 2 Therapist That Will Oversee The Plan Of Care: Conor Weaver Start of Care Date: 02/13/22 Onset Date: 01/23/22 Plan of Care Certification Date: 02/13/22 Next Certification Due Date: 05/16/22 REHABILITATION AND SPORTS THERAPY PHYSICAL THERAPY TREATMENT NOTE ASSESSMENT: Moo Horowitz tolerated the session with decreased symptoms. He demonstrated difficulty with HEP follow through due to lack of understanding. Patient verbally stating greater understanding at end of treatment. The patient will continue to benefit from ongoing skilled physical therapy to progress toward set goals. PLAN FOR NEXT VISIT: MD SUBJECTIVE: Patient Reason for Visit: Pt feels slightly better, but still the pain across the left lower back Pain: Pain Pain Level: 4 Pain Location: Low Back/Lumbar Spine - Left Description: Sore;Aching Frequency: Continuous OBJECTIVE MEASURES WITH LEVEL OF FUNCTION: Traction improves symptoms TREATMENT: Therapeutic Exercise: 1: *SKC 3x30 sec on L 2: *Trunk rotations 3x20/side 3: L sciatic nerve flossing 3x10, 5 sec holds 4: TA bracing 3x10, 5 sec holds 5: TA bracing with hip hikes 3x10 (Ceased due to hip pain, likely originating from the joint) 6: *TA bracing with BKFO 3x10/side (Remarked patients HEP sheets to denote which exercises he needs to be doing after it was discovered he only did a couple of them) Skilled Intervention: Patient was educated in proper exercise technique and purpose for exercises. Skilled judgment was provided in selection of appropriate interventions. Provided written instruction for home exercise program to facilitate proper performance and compliance. Correct performance of therapeutic exercises was facilitated with verbal, visual and tactile cuing. Patient education as noted. Manual Therapy: 1: Manual lumbar belt traction x10 min Skilled Intervention: Manual skills to improve joint mobility, ROM, and decrease pain. Utilized anatomy knowledge of the therapist, and assessment of patient's response to intervention. Billing Therapeutic Exercise Treatment Minutes: 30 Manual TherapyTreatment Minutes: 10 Total Treatment Time Minutes (timed/untimed): 40 Conor Weaver PT documented in this encounter [facility] Progress note 02-13-2022 Note Date & Type Note Facility 02-13-2022 Note HNO ID: [id number] Author: Conor Weaver PT Service: ? Author Type: Physical Therapist Type: Progress Notes Filed: 02/13/2022 11:17 AM Note Text: Episode Visit Count: 1 Therapist That Will Oversee The Plan Of Care: Conor Weaver Start of Care Date: 02/13/22 Onset Date: 01/23/22 Plan of Care Certification Date: 02/13/22 Next Certification Due Date: 05/16/22 Patient Identified by Name and Date of : Yes REHABILITATION AND SPORTS THERAPY PHYSICAL THERAPY EVALUATION PLAN OF CARE: Assessment: Moo Horowitz presents with chief complaint of L sided LBP that interferes with standing;walking;bending;heavy exertion;lifting;physical activities;recreational activities . He presents with impairments in ADL's, independence in exercise, overall function, range of motion and strength. Prognosis for therapy is Good due to: good overall health status;current objective clinical presentation;acuteness of condition;within-session changes;good support system/ coping skills . He will benefit from skilled therapy services to meet the goals established for this plan of care as noted below. Classification Low Back Pain Subgroup Classification: Core stabilization subgroup: recommended visits 10. Core Stabilization Subgroup Classification based on: aberrant movements;segmental hinging;pain with transitional movements Goals for Episode of Care: created on 02/13/22 through 04/15/22 Independent in home exercises. Patient will decrease pain rating by 2 points to meet minimal clinical important difference for numeric pain rating scale. Restore pain-free lumbar ROM to minimal limitations to allow for improved functional mobility and decreased pain Stand / Walk as needed for ADLs without pain/symptoms. Patient will increase strength of trunk/core to 5/5 to allow for improve ability to complete ADLs. Planned Interventions, Frequency, and Duration: Current Frequency: 1x/week Duration: 8 weeks Total Number of Visits Planned: 8 Planned Treatment Interventions: Therapeutic exercise (60334);Neuromuscular re-education (38355);Manual therapy (68233);Therapeutic activities (75537);Self-mcfp management (66804);Patient/Family/Caregiver Education;Body Mechanics Training PLAN FOR NEXT VISIT: January trial traction if back pain continues. Progress core strengthening Patient demonstrates good understanding of plan of care and treatment. The above goals and plan of care were discussed and agreed upon by patient/family. SUBJECTIVE: Moo Horowitz is a 77 year old male seen today for LBP for 4 years, with recent lumbar decompression performed 01/23/2022. Pt still has some left sided LBP but the sciatica symptoms down the leg have resolved. Wants to get back to working on his classic cars and woodworking Functional Limitations: standing;walking;bending;heavy exertion;lifting;physical activities;recreational activities Prior Level of Function: Independent without limitations Intake Information: Prescription present Pain: Pain Pain Level: 5 Pain Location: Low Back/Lumbar Spine - Left Description: Sore;Aching Frequency: Continuous Post Treatment Pain Post Treatment Pain Level: 1 Post Treatment Pain Location: Low Back/Lumbar Spine - Left PROMIS Scales T-scores: mean of general population = 50. 5 points is clinically meaningfully difference Percentiles provide an indication of how the patient's score ranks in relation to the general population. Higher percentile rankings indicate better function/quality of life. 50th percentile is the average of the general population and indicates half of respondents had a worse score. T-scores: mean of general population = 50. 5 points is clinically meaningfully difference Percentiles provide an indication of how the patient's score ranks in relation to the general population. Higher percentile rankings indicate better function/quality of life. 50th percentile is the average of the general population and indicates half of respondents had a worse score. OBJECTIVE MEASURES WITH LEVEL OF FUNCTION: Lumbar Spine AROM Lumbar Flexion: Minimal limitation Lumbar Extension: Major limitation Lumbar R Side-Bend: Major limitation Lumbar L Side-Bend: Major limitation Lumbar R Rotation: Moderate limitation Lumbar L Rotation: Moderate limitataion Repeated Test Movements - Lumbar RFIL - Symptoms During: decreases RFIL - Symptoms After: better LE Flexibility Flexibility: Hamstring Flexibility R Hamstring Flexibility: Moderate limitation L Hamstring Flexibility: Major limitation LE Strength Trunk Strength: 3+/5 R LE Strength: 4+/5 grossly L LE Strength: 4+/5 grossly Special Tests - Hip and Spine Hip and Spine Special Tests: SLR Test SLR Test: Left Positive Education: Education Learning/educational needs: Home exercise program;Plan of Care;Changes in Plan of Care;Brace Fit;Body Mechanics TREATMENT: PT Treatment Interventions: Thera (more content not included)... [facility] History of Present illness Narrative 02-13-2022 Conor Weaver, PT - 02/13/2022 11:11 AM EDT Note Date & Type Note Facility 02-13-2022 History of Presen t illness Narrative Episode Visit Count: 1 Therapist That Will Oversee The Plan Of Care: Conor Weaver Start of Care Date: 02/13/22 Onset Date: 01/23/22 Plan of Care Certification Date: 02/13/22 Next Certification Due Date: 05/16/22 Patient Identified by Name and Date of : Yes REHABILITATION AND SPORTS THERAPY PHYSICAL THERAPY EVALUATION PLAN OF CARE: Assessment: Moo Horowitz presents with chief complaint of L sided LBP that interferes with standing;walking;bending;heavy exertion;lifting;physical activities;recreational activities . He presents with impairments in ADL's, independence in exercise, overall function, range of motion and strength. Prognosis for therapy is Good due to: good overall health status;current objective clinical presentation;acuteness of condition;within-session changes;good support system/ coping skills . He will benefit from skilled therapy services to meet the goals established for this plan of care as noted below. Classification Low Back Pain Subgroup Classification: Core stabilization subgroup: recommended visits 10. Core Stabilization Subgroup Classification based on: aberrant movements;segmental hinging;pain with transitional movements Goals for Episode of Care: created on 02/13/22 through 04/15/22 Independent in home exercises. Patient will decrease pain rating by 2 points to meet minimal clinical important difference for numeric pain rating scale. Restore pain-free lumbar ROM to minimal limitations to allow for improved functional mobility and decreased pain Stand / Walk as needed for ADLs without pain/symptoms. Patient will increase strength of trunk/core to 5/5 to allow for improve ability to complete ADLs. Planned Interventions, Frequency, and Duration: Current Frequency: 1x/week Duration: 8 weeks Total Number of Visits Planned: 8 Planned Treatment Interventions: Therapeutic exercise (92562);Neuromuscular re-education (85846);Manual therapy (71636);Therapeutic activities (53543);Self-mcfp management (27505);Patient/Family/Caregiver Education;Body Mechanics Training PLAN FOR NEXT VISIT: May trial traction if back pain continues. Progress core strengthening Patient demonstrates good understanding of plan of care and treatment. The above goals and plan of care were discussed and agreed upon by patient/family. SUBJECTIVE: Moo Horowitz is a 77 year old male seen today for LBP for 4 years, with recent lumbar decompression performed 01/23/2022. Pt still has some left sided LBP but the sciatica symptoms down the leg have resolved. Wants to get back to working on his classic cars and woodworking Functional Limitations: standing;walking;bending;heavy exertion;lifting;physical activities;recreational activities Prior Level of Function: Independent without limitations Intake Information: Prescription present Pain: Pain Pain Level: 5 Pain Location: Low Back/Lumbar Spine - Left Description: Sore;Aching Frequency: Continuous Post Treatment Pain Post Treatment Pain Level: 1 Post Treatment Pain Location: Low Back/Lumbar Spine - Left PROMIS Scales T-scores: mean of general population = 50. 5 points is clinically meaningfully difference Percentiles provide an indication of how the patient's score ranks in relation to the general population. Higher percentile rankings indicate better function/quality of life. 50th percentile is the average of the general population and indicates half of respondents had a worse score. T-scores: mean of general population = 50. 5 points is clinically meaningfully difference Percentiles provide an indication of how the patient's score ranks in relation to the general population. Higher percentile rankings indicate better function/quality of life. 50th percentile is the average of the general population and indicates half of respondents had a worse score. OBJECTIVE MEASURES WITH LEVEL OF FUNCTION: Lumbar Spine AROM Lumbar Flexion: Minimal limitation Lumbar Extension: Major limitation Lumbar R Side-Bend: Major limitation Lumbar L Side-Bend: Major limitation Lumbar R Rotation: Moderate limitation Lumbar L Rotation: Moderate limitataion Repeated Test Movements - Lumbar RFIL - Symptoms During: decreases RFIL - Symptoms After: better LE Flexibility Flexibility: Hamstring Flexibility R Hamstring Flexibility: Moderate limitation L Hamstring Flexibility: Major limitation LE Strength Trunk Strength: 3+/5 R LE Strength: 4+/5 grossly L LE Strength: 4+/5 grossly Special Tests - Hip and Spine Hip and Spine Special Tests: SLR Test SLR Test: Left Positive Education: Education Learning/educational needs: Home exercise program;Plan of Care;Changes in Plan of Care;Brace Fit;Body Mechanics TREATMENT: PT Treatment Interventions: Therapeutic Exercise Evaluation Therapeutic Exercise: 1: *SKC 3x30 sec on L 2: *Trunk rotations 3x20/side 3: *L sciatic nerve flossing 3x10, 5 sec holds 4: *TA bracing 3x10, 5 sec holds 5: *TA bracing with hip hikes 3x10 6: Spent time discussing rationale for exercises and relating them to anatomical and kinesiological concepts 7: Briefly discussed importance of body mechanics, relating this to importance of core strengthening exercises Skilled Intervention: Patient was educated in proper exercise technique and purpose for exercises. Skilled judgment was provided in selection of appropriate interventions. Provided written instruction for home exercise program to facilitate proper performance and compliance. Correct performance of therapeutic exercises was facilitated with verbal, visual and tactile cuing. Patient education as noted. Billing * Evaluation Low Complexity: 1 Unit Therapeutic Exercise Treatment Minutes: 28 Total Treatment Time Minutes (timed/untimed): 45 Conor Weaver PT documented in this encounter [facility] Evaluation note Note Date & Type Note Facility documented in this encounter [facility] Evaluation note Note Date & Type Note Facility documented in this encounter [facility] Evaluation note Note Date & Type Note Facility documented in this encounter [facility] Summary Purpose Family History No Family History Records FoundNo Family History Records FoundNo Family History Records FoundNo Family History Records Found Advance Directives No Advanced Directives Records FoundNo Advanced Directives Records FoundNo Advanced Directives Records FoundNo Advanced Directives Records Found Additional Source Comments (unrecognized sect ion and content) No Status Records FoundNo Status Records FoundNo Status Records FoundNo Status Records Found INFORMATION SOURCE (unrecogn ized section and content) DATE CREATED AUTHOR AUTHOR'S ORGANIZ ATION 01/01/2021 [facility] DATE CREATED AUTHOR AUTHOR'S ORGANIZ ATION 02/01/2022 [facility] DATE CREATED AUTHOR AUTHOR'S ORGANIZ ATION 03/10/2022 [facility] Source Comments (unrecognize d section and content) In the event this informatio n is protected by the Federal Confidentiality of Alcohol and Drug Abuse Patient Records regulations: The Federal rules restrict any use of the information to criminally investigate or prosecute any alcohol or drug abuse patient.[facility] the event this information is protected by the Federal Confidentiality of Alcohol and Drug Abuse Patient Records regulations: The Federal rules restrict any use of the information to criminally investigate or prosecute any alcohol or drug abuse patient.[facility] the event this information is protected by the Federal Confidentiality of Alcohol and Drug Abuse Patient Records regulations: The Federal rules restrict any use of the information to criminally investigate or prosecute any alcohol or drug abuse patient.[facility] Reason for Visit (unrecogniz ed section and content) Specialty Diagnoses / Procedures Referred By Contac t Referred To Contact Physical Therapy / PHYSICAL THERAPY Diagnoses back pain Procedures NEW RS PT SPINE Self Conor Weaver, JULIO Referral ID Status Reason Start Date Expiration Date V isits Requested Visits Authorized [id number] Authorized 09/14/2021 09/13/2022 99 99 Reason Comments Physical Therapy Reason Comments PT Eval Care Teams (unrecognized sec tion and content) Instrumentation Engineering Technician Relationship Specialty Start Date End Date Joaquin Grady MD PCP - General 03/04/05 Instrumentation Engineering Technician Relationship Specialty Start Date End Date Joaquin Grady MD PCP - General 03/04/05 FOR RECORDS PERTAINING TO PATIENTS WHO ARE OR HAVE BEEN ENROLLED IN A CHEMICAL DEPENDENCY/SUBSTANCEABUSE PROGRAM, SOME INFORMATION MAY BE OMITTED. This clinical summary was aggregated from multiple sources. Caution should be exercised in using it in the provision of clinical care. This summary normalizes information from multiple sources, and as a consequence, information in this document may materially change the coding, format and clinical context of patient data. In addition, data may be omitted in some cases. CLINICAL DECISIONS SHOULD BE BASED ON THE PRIMARY CLINICAL RECORDS. [facility]. provides no warranty or guarantee of the accuracy or completeness of information in this document.
== END | disposition home or self-care (01) ==
LOC: CVS 12:45
PROVIDERS: PCP Family Medicine; Referring Provider Surgery; Visit Provider Surgery
DX: I65.21 Occlusion and stenosis of right carotid artery (principal); I73.9 Peripheral vascular disease, unspecified
CPT/HCPCS: 93880; 93924

== ENCOUNTER 2023-11-30 09:00 | Day surgery (SDC) | payer MEDICARE, OTHER, SELFPAY ==
[2023-11-30 09:20] VITALS: BP 123/74; PULSE 71; RESP 16; TEMP 36.1; O2SAT 100; BMI 29.6
[2023-11-30] MEDS: Lactated Ringers 1,000 ML 15 ML IV (09:26)
--- NOTE | 2023-11-30 09:29 | HP.PCM_ITS ---
History and Physical Date of Admission: 11/30/23 Visit Reasons: C-Scope Chief Complaint: c scope Is patient in pain?: No Allergies diltiazem Adverse Reaction (Intermediate, Verified 09/23/23 13:26) Facial flushing and fatiguecarvedilol [From Coreg] Adverse Reaction (Verified 09/23/23 13:26) face tingling Medications alprazolam 0.5 mg tablet 0.5 mg PO QHS anxiety 12/07/15 [History Confirmed 09/23/23] meloxicam 15 mg tablet 15 mg PO DAILY 12/25/21 [History Confirmed 09/23/23] acetaminophen 500 mg tablet (Tylenol Extra Strength) 1,000 mg PO DAILY 12/25/22 [History Confirmed 09/23/23] cyclobenzaprine 5 mg tablet 5 mg PO BID PRN muscle spasm 12/25/22 [History Confirmed 09/23/23] apixaban 5 mg tablet (Eliquis) 5 mg PO BID #60 tabs 01/05/23 [Rx Confirmed 09/23/23] losartan 50 mg tablet 50 mg PO BID #180 tabs 01/26/23 [Rx Confirmed 09/23/23] verapamil 120 mg 24 hr capsule,extended release 120 mg PO DAILY STOP Diltiazem #90 caps 05/05/23 [Rx Confirmed 09/23/23] ipratropium bromide 21 mcg (0.03 %) nasal spray 2 spray intranasal DAILY 09/23/23 [History Confirmed 09/23/23] [facility] Medical History 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 Essential (primary) hypertension Left bundle branch block (LBBB) Mobitz type II atrioventricular block Non-sustained ventricular tachycardia LORI (obstructive sleep apnea) Over weight Raynaud disease Schatzki's ring of distal esophagus Sinus bradycardia Surgical History Biventricular cardiac pacemaker in situ (07/13/15) History of carpal tunnel surgery of right wrist History of esophagogastroduodenoscopy (EGD) History of herniorrhaphy Family History Mother CAD (coronary artery disease)Father CAD (coronary artery disease)Brother Polycystic kidney disease Social History Smoking Status: Never smoker alcohol intake: never substance use type: does not use caffeine: Yes Type: carbonated beverages and tea HPI HPI HPI: 78-year-old gentleman returns to discuss ongoing surveillance colonoscopy. It is of note that I have most recently seen him in the office on February 12, 2022. He had very mild right carotid stenosis asymptomatic. At that time he did not feel that he required any intervention nor any particular additional testing other than carotid duplex imaging PVRs at 1 year. It appears that he did not pursue those. The purpose for today's visit is in follow-up of a colonoscopy that I assisted him with on July 09, 2018. Hemorrhoids were identified. A 5 mm polyp in the descending colon. Multiple diverticula. Pathology consistent with a tubular adenoma. The patient denies any central neurologic symptoms over the past year. 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 He denies any symptoms that would seem to correlate with calf claudication. He does feel that he has consequences of verapamil therapy. He feels that is aggravated constipation and hand and leg swelling. He will be stopping his verapamil tomorrow with Dr. Regalado. He reminds me he has a pacemaker in place. He is on Eliquis twice daily. He is try to alleviate some of his constipation by using bran cereal and that has helped. He denies any melena. Most infrequently does he have any evidence of any blood on the tissue. He attributes that to his blood thinner. No abdominal pain. No unexpected weight loss. ROS General General: No weight change, appetite, fatigue, colon cancer, breast cancer or weakness HEENT HEENT: No difficulty swallowing, eye injury, eye surgery, swollen glands or hoarseness Endo Endocrine: No thyroid disease, diabetes mellitus, thyroid cancer, Hair loss, heat intolerance or cold intolerance Skin Skin: No rash or changing moles Musc Musculoskeletal: Yes back problems and arthritis; No rheumatoid arthritis, gout or joint pain Cardio Cardiovascular: Yes murmur, pacemaker, atrial fibrillation and high blood pressure; No heart disease, heart attack, heart stent, palpitations, shortness of breat with exertion or chest pain Psych Psychiatric: No depression, anxiety or hearing voices Resp Respiratory: No shortness of breath, Yes sleep apnea, No cough, No COPD, No asthma, No emphysema and No wheezing Gastro Gastrointestinal: No abdominal pain, No nausea or vomiting, No diarrhea, Yes constipation, No blood in stool, Yes acid reflux, No hemorrhoids, No ulcers, No gallbladder problem and No black,tarry stools Mychal Hematologic: Yes blood thinners, No blood disorders, No bleeding, No anemia and No blood clots Additional Details: Baby ASA daily, eliquis Neuro Neurologic: No system reviewed and no additional complaints, except as documented, No as per HPI, No abnormal gait, No abnormal hearing, No abnormal m ovements, No abnormal speech, No behavioral changes, No burning sensations, No confusion, No convulsions, No disequilibrium, No dizziness, No localized weakness, No frequent falls, No headache(s), No lack of coordination, No loss of vision, No memory loss, No numbness, No other visual disturbances, No radicular pain, No restless legs, No sensory deficit, No syncope, No tingling, No tremor(s), No weakness and No other Exam Const General: cooperative, comfortable and no acute distress Nutritional Appearance: obese Eyes General: appearance normal, both eyes and all related structures Chest Chest palpation & inspection: normal inspection of the chest Resp Effort & Inspection: normal respiratory effort Auscultation: clear to auscultation bilaterally Cardio Rate: regular rate Rhythm: regular rhythm Other: Bilateral carotids are 3+. No carotid bruits. Bilateral radials 3+. Bilateral femorals 3+. GI Inspection: normal to inspection Palpation: soft and no hepatosplenomegaly Other: Overweight, difficult to detect internal organs Skin General: no rashes or lesions noted Neuro General: patient alert, patient awake and patient oriented x3 Extrem General: no calf tenderness Other: Mild bilateral extremity pitting edema. Psych Appearance: grossly normal Assessment and Plan Assessment and Plan (1) Peripheral vascular disease: Status: Acute (2) Carotid artery disease: Status: Acute Qualifiers: Carotid artery disease type: stenosis Laterality: right Qualified Code(s): I65.21 - Occlusion and stenosis of right carotid artery (3) Personal history of colonic polyps: Status: Acute Plan: I will recommend to the patient a colonoscopy with possible biopsy or polypectomy as indicated. He is aware of the technique, benefit, risk, alternatives. He has had an opportunity to ask and have questions answered. We will schedule and proceed at his discretion. I appreciate the ongoing opportunity of assisting with the surgical care. We will alert preadmission testing that he has a pacemaker in place is on Eliquis. We will have him hold his Eliquis for 2 days preprocedure. Regarding the patient's extracranial carotid disease and peripheral vascular occlusive disease plan on obtaining carotid duplex imaging and PVRs with exercise. We will then phone contact the patient with results and any additional instructions. I appreciate the opportunity of assisting with the surgical care. Copy: Dr. Paul Mac I have examined the patient and the H&P has been reviewed. There are no clinical changes since date of exam. Richie Tan M.D., F.A.C.S. Richie Tan M.D., F.A.C.S.
[2023-11-30 10:58] VITALS: BP 123/74; BP 99/50; PULSE 74; RESP 16; TEMP 36.3; O2SAT 98
[2023-11-30 11:00] VITALS: BP 105/55; BP 123/74; PULSE 74; RESP 16; O2SAT 99
--- NOTE | 2023-11-30 11:04 | OP.COLON_ITS ---
Patient Name: Jonah Horowitz Procedure Date: 11/30/2023 10:33 AM Date of : 1945 Age: 78 Procedure: Colonoscopy Indications: High risk colon cancer surveillance: Personal history of colonic polyps Providers: Richie Tan MD Medicines: See the Anesthesia note for documentation of the administered medications Patient Profile: Last Colonoscopy: June 2018. Last Colonoscopy: June 2018. Complications: No immediate complications. Procedure: Pre-Anesthesia Assessment: - Prior to the procedure, a History and Physical was performed, and patient medications and allergies were reviewed. The patient's tolerance of previous anesthesia was also reviewed. The risks and benefits of the procedure and the sedation options and risks were discussed with the patient. All questions were answered, and informed consent was obtained. Prior Anticoagulants: The patient has taken Eliquis (apixaban), last dose was 2 days prior to procedure. ASA Grade Assessment: III - A patient with severe systemic disease. After reviewing the risks and benefits, the patient was deemed in satisfactory condition to undergo the procedure. After I obtained informed consent, the scope was passed under direct vision. Throughout the procedure, the patient's blood pressure, pulse, and oxygen saturations were monitored continuously. The adult colonoscope was introduced through the anus and advanced to the cecum, identified by appendiceal orifice and ileocecal valve. The colonoscopy was performed without difficulty. The patient tolerated the procedure well. The quality of the bowel preparation was good. The ileocecal valve and the appendiceal orifice were photographed. Scope In: 10:42:44 AM Scope Withdrawal Time 0 hours 6 minutes 9 seconds Scope Out: 10:53:27 AM Total Procedure Duration Time 0 hours 10 minutes 43 seconds Findings: The digital rectal exam findings include non-thrombosed external hemorrhoids, non-thrombosed internal hemorrhoids, internal hemorrhoids that prolapse with straining, but require manual replacement into the anal canal (Grade III) and enlarged prostate. Multiple diverticula were found in the sigmoid colon. Impression: - Non-thrombosed external hemorrhoids, non-thrombosed internal hemorrhoids, internal hemorrhoids that prolapse with straining, but require manual replacement into the anal canal (Grade III) and enlarged prostate found on digital rectal exam. - Diverticulosis in the sigmoid colon. - No specimens collected. Recommendation: - Discharge patient to home. - Resume previous diet. - Continue present medications. - Repeat colonoscopy in 5 years for surveillance. Procedure Code(s): --- Professional --- 85349, Colonoscopy, flexible; diagnostic, including collection of specimen(s) by brushing or washing, when performed (separate procedure) Diagnosis Code(s): --- Professional --- Z86.010, Personal history of colonic polyps K64.2, Third degree hemorrhoids K64.4, Residual hemorrhoidal skin tags N40.0, Benign prostatic hyperplasia without lower urinary tract symptoms K57.30, Diverticulosis of large intestine without perforation or abscess without bleeding CPT copyright 2021 [employer]. All rights reserved. The codes documented in this report are preliminary and upon manager respiratory review may be revised to meet current compliance requirements. Richie Tan MD 11/30/2023 11:03:45 AM This report has been signed electronically. Number of Addenda: 0 Note Initiated On: 11/30/2023 10:33 AM
--- NOTE | 2023-11-30 11:04 | OP.CCLET_ITS ---
11/30/2023 Paul Mac MD [address] [place] [address] Re : Colonoscopy procedure for Jonah Horowitz Dear Dr. Mac This procedure was performed on Thursday, November 30, 2023. My impressions and recommendations are as follows: Impressions : - Non-thrombosed external hemorrhoids, non-thrombosed internal hemorrhoids, internal hemorrhoids that prolapse with straining, but require manual replacement into the anal canal (Grade III) and enlarged prostate found on digital rectal exam. - Diverticulosis in the sigmoid colon. - No specimens collected. Recommendations : - Discharge patient to home. - Resume previous diet. - Continue present medications. - Repeat colonoscopy in 5 years for surveillance. My findings are described in the full procedure note, which is enclosed. If I can be of further assistance, please feel free to contact me at Doctor phone number(s): Work: . Sincerely, Richie Tan MD 11/30/2023 11:03:45 AM This report has been signed electronically.
[2023-11-30 11:05] VITALS: BP 123/74; BP 94/67; PULSE 71; RESP 16; O2SAT 100
[2023-11-30 11:16] VITALS: BP 121/67; BP 123/74; PULSE 69; RESP 16; TEMP 36.4; O2SAT 100
[2023-11-30 11:39] VITALS: BP 123/74
== END 2023-11-30 12:04 | disposition home or self-care (01) ==
LOC: EN 09:01 → AC 09:04
PROVIDERS: PCP Family Medicine; Referring Provider Family Medicine; Visit Provider Surgery
PROC: 0DJD8ZZ Inspection of Lower Intestinal Tract, Via Natural or Artificial Opening Endoscopic (ICD-10-PCS; CPT 45378; principal; 2023-11-30 09:55)
DX: Z12.11 Encounter for screening for malignant neoplasm of colon (principal); I77.9 Disorder of arteries and arterioles, unspecified; I73.9 Peripheral vascular disease, unspecified; I47.20 Ventricular tachycardia, unspecified; I10 Essential (primary) hypertension; Z86.010 Personal history of colon polyps; K64.4 Residual hemorrhoidal skin tags; N40.0 Benign prostatic hyperplasia without lower urinary tract symptoms; K57.30 Diverticulosis of large intestine without perforation or abscess without bleeding; Z95.0 Presence of cardiac pacemaker; I65.21 Occlusion and stenosis of right carotid artery; Z79.899 Other long term (current) drug therapy; Z79.01 Long term (current) use of anticoagulants; K64.2 Third degree hemorrhoids
CPT/HCPCS: G0105; 36415; 80053; 83735; 84439; 84443; 85025; J7120; J2405

== ENCOUNTER → 2023-11-30 | Outpatient (CLI) | payer MEDICARE, OTHER, SELFPAY ==
[2023-11-30 17:41] LABS: Absolute Lymphocyte Count 1.33 X10^3/uL (0.83-4.51); Absolute Neutrophil Count 3.7 X10^3/uL (2.0-7.7); Basophil# 0.05 X10^3/uL; Basophil% 0.8 % (0-1); Eosinophil# 0.11 X10^3/uL; Eosinophils% 1.8 % (0-5); Hematocrit 37.5 % (40-54); Hemoglobin 11.9 g/dL (13.0-16.5); Lymphocyte # 1.33 X10^3/ul (0.83-4.51); Lymphocyte % 22.2 % (19-41); Mean Corp Hgb Conc 31.7 g/dL (32-36); Mean Corpuscular Hgb 30.7 pg (27.0-32.0); Mean Corpuscular Volume 96.6 fL (80-94); Mean Platelet Vol. 11.7 fl (6.2-12.0); Monocyte# 0.75 X10^3/uL; Monocyte% 12.5 % (0-10); NRBC Flagged by Analyzer 0 % (0-5); Neutrophil # 3.74 X10^3/uL (2.7-7.7); Neutrophil % 62.5 % (47-70); Platelet Count 225 K/mm3 (150-450); RBC Distribution Width CV 13.7 % (11.6-14.6); Red Blood Count 3.88 M/mm3 (4.6-6.2)
[2023-11-30 18:17] LABS: ALB/GLOB Ratio 1.1 RATIO (0.9-2.4); AST(SGOT) 27 U/L (15-37); Alanine Aminotransfer ALT/SGPT 25 U/L (16-61); Albumin, Serum 3.6 g/dL (3.2-5.0); Alkaline Phosphatase 90 U/L (45-117); Anion Gap 6 (5-15); BUN 21 mg/dL (7-18); BUN/Creat Ratio 22.4 RATIO (10-20); Calcium,Total 8.7 mg/dL (8.5-10.1); Chloride 106 mmol/L (98-107); Creatinine, Serum 0.94 mg/dL (0.70-1.30); EST Glomerular Filtration Rate 83 mL/min (>60); Est Glom Filt Rate - Afr Amer 100 mL/min (>60); Globulin 3.4 g/dL (2.2-4.2); Glucose 84 mg/dL (74-106); Magnesium 2.3 mg/dL (1.6-2.6); Potassium 4.2 mmol/L (3.5-5.1); Sodium Level 142 mmol/L (136-145); T4 Free Direct 0.98 ng/dL (0.76-1.46); Thyroid Stim Hormone (TSH) 1.72 uIU/mL (0.358-3.74)
== END | disposition home or self-care (01) ==
LOC: MFPLAB 16:27
PROVIDERS: Nurse Practitioner Family; PCP Family Medicine; Visit Provider Family Medicine
DX: I47.20 Ventricular tachycardia, unspecified (principal); I10 Essential (primary) hypertension
CPT/HCPCS: 36415; 80053; 83735; 84439; 84443; 85025

== ENCOUNTER → 2024-03-10 | Outpatient (CLI) | payer MEDICARE, OTHER, SELFPAY ==
[2024-03-10 18:14] LABS: Absolute Lymphocyte Count 1.56 X10^3/uL (0.83-4.51); Absolute Neutrophil Count 4.4 X10^3/uL (2.0-7.7); Basophil# 0.05 X10^3/uL; Basophil% 0.7 % (0-1); Eosinophil# 0.14 X10^3/uL; Hematocrit 38.8 % (40-54); Hemoglobin 12.7 g/dL (13.0-16.5); Lymphocyte # 1.56 X10^3/ul (0.83-4.51); Lymphocyte % 22.5 % (19-41); Mean Corp Hgb Conc 32.7 g/dL (32-36); Mean Corpuscular Hgb 31.3 pg (27.0-32.0); Mean Corpuscular Volume 95.6 fL (80-94); Mean Platelet Vol. 12.5 fl (6.2-12.0); Monocyte# 0.77 X10^3/uL; Monocyte% 11.1 % (0-10); NRBC Flagged by Analyzer 0 % (0-5); Neutrophil % 63.4 % (47-70); Platelet Count 220 K/mm3 (150-450); RBC Distribution Width CV 13.7 % (11.6-14.6); RBC Distribution Width SD 48.9 fl (35.1-43.9); Red Blood Count 4.06 M/mm3 (4.6-6.2); White Blood Count 6.9 K/mm3 (4.4-11.0)
[2024-03-10 18:34] LABS: Uric Acid 5.4 mg/dL (3.5-7.2)
== END | disposition home or self-care (01) ==
LOC: MFPLAB 16:07
PROVIDERS: PCP Family Medicine; Visit Provider Family Medicine
DX: M79.676 Pain in unspecified toe(s) (principal)
CPT/HCPCS: 36415; 84550; 85025

== ENCOUNTER → 2024-03-28 | Outpatient (CLI) | payer MEDICARE, OTHER, SELFPAY ==
--- NOTE | 2024-03-28 15:06 | ART_ITS ---
Reason For Study: LE Pain Procedure A bilateral lower extremity continuous wave Doppler with analog waveform analysis and ankle brachial indexes. Left Segmental Pressures Left brachial= 127mmHg. Left posterior tibial artery = 88mmHg. Left dorsalis pedis artery = 89mmHg. Left digit = 67 mmHg. The left posterior tibial artery waveforms are biphasic. The left dorsalis pedis waveforms are biphasic. Right Segmental Pressures Right brachial= 118mmHg. Right posterior tibial artery = 77mmHg. Right dorsalis pedis artery = 78mmHg. Right digit = 66 mmHg. The right posterior tibial artery waveforms are biphasic. The right dorsalis pedis waveforms are biphasic. Indices The right ankle brachial index by the posterior tibial artery is 0.61. The right ankle brachial index by the dorsalis pedis is 0.61. The right digital-brachial index is 0.52. The left ankle brachial index by the posterior tibial artery is 0.69. The left ankle brachial index by the dorsalis pedis is 0.70. The left digital-brachial index is 0.53. VL/Ankle Brachial Index Interpretation Summary Abnormal right lower extremity posterior tibialis and dorsalis pedis ankle-brac hial indices at rest at 0.61 and 0.61 respectively with biphasic Doppler waveforms consistent with m oderately severe arterial occlusive disease. The right digital brachial index is abnormal at 0.52 Abnormal left lower extremity posterior tibialis and dorsalis pedis ankle-brach ial indices at rest at 0.69 and 0.7 respectively with biphasic Doppler waveforms consistent with mo derately severe arterial occlusive disease at rest. Abnormal left digital brachial index of 0.53 The resting indices have declined slightly from the previous examination of Sep Ordering Physician: Paul Mac Referring Physician: PAUL MAC MD Performed By: Diony Sr RVT
== END | disposition home or self-care (01) ==
LOC: CVS 15:05
PROVIDERS: PCP Family Medicine; Referring Provider Family Medicine; Visit Provider Family Medicine
DX: I73.9 Peripheral vascular disease, unspecified (principal)
CPT/HCPCS: 93922

== ENCOUNTER → 2024-04-11 | Outpatient (CLI) | payer MEDICARE, OTHER, SELFPAY ==
--- NOTE | 2024-04-11 10:52 | RAD_ITS ---
INDICATION: PAIN IN TOE left second toe pain and redness recently, no injury EXAMINATION/TECHNIQUE: X-RAY - LEFT FOOT XR Toes Min 2 Views 3 VIEWS COMPARISON: No relevant prior comparison study available FINDINGS: BONES: No fracture demonstrated. Degenerative changes of the great toe metatarsophalangeal joint, partially included. JOINTS: No dislocation. SOFT TISSUES: Unremarkable. RAD/Toe(s) Min 2 Views IMPRESSION: No acute findings. No evidence of fracture. Electronically Signed: Giselle Galeana MD at 8:00 EDT ,
== END | disposition home or self-care (01) ==
LOC: MTRAD 10:51
PROVIDERS: PCP Family Medicine; Referring Provider Family Medicine; Visit Provider Family Medicine
DX: M79.676 Pain in unspecified toe(s) (principal)
CPT/HCPCS: 73660

== ENCOUNTER → 2024-04-27 | Outpatient (CLI) | payer MEDICARE, OTHER, SELFPAY ==
--- NOTE | 2024-04-27 15:03 | CDU_ITS ---
Reason For Study: carotid artery disease Rt. Velocities/BP Lt. Velocities/BP Prox CCA 58.9/11.6 cm/sec. Prox CCA 93.7/20.0 cm/sec. Mid CCA 75.9/22 cm/sec. Mid CCA 103.5/26.2 cm/sec. Dist CCA 59.8/16.3 cm/sec. Dist CCA 68.3/18.2 cm/sec. Prox ICA 126.6/33.4 cm/sec. Prox ICA 91.0/29.6 cm/sec. Mid ICA 67.4/22.3 cm/sec. Mid ICA 92.7/22.3 cm/sec. Dist ICA 72.3/19.9 cm/sec. Dist ICA 69.6/20.1 cm/sec. Rt. ICA/CCA = 1.66. Lt. ICA/CCA = .87. Prox ECA 118.2/16.3 cm/sec. Prox ECA 84.4/15.4 cm/sec. Rt. Vert. 37.8/12.5 cm/sec. Lt. Vert. 36.3/15.4 cm/sec. Right Extracranial There is homogeneous, smooth atherosclerotic plaque noted in the right common carotid artery. There is heterogeneous, smooth atherosclerotic plaque noted in the right internal carotid artery. There is heterogeneous, irregular atherosclerotic plaque noted in the right external carotid artery. Antegrade flow is noted in the right vertebral artery. Left Extracranial There is homogeneous, smooth atherosclerotic plaque noted in the left common carotid artery. There is heterogeneous, smooth atherosclerotic plaque noted in the left internal carotid artery. There is heterogeneous, irregular atherosclerotic plaque noted in the left external carotid artery. Antegrade flow is noted in the left vertebral artery. Procedure Carotid Duplex 82222. This is a Carotid Duplex examination using B-mode, color flow and specral Doppler. Exam performed in department. VL/Carotid Duplex Ultrasound Interpretation Summary Moderate (50-69%) stenosis right extracranial internal carotid. Mild (<50%) stenosis left extracranial internal carotid. Patent and antegrade vertebrals bilaterally. Ordering Physician: Paul Mac Referring Physician: Paul Mac Performed By: Giselle Irwin RVT
== END | disposition home or self-care (01) ==
LOC: CVS 15:02
PROVIDERS: PCP Family Medicine; Referring Provider Family Medicine; Visit Provider Family Medicine
DX: I77.9 Disorder of arteries and arterioles, unspecified (principal); I65.23 Occlusion and stenosis of bilateral carotid arteries
CPT/HCPCS: 93880

== ENCOUNTER → 2024-05-23 | Outpatient (CLI) | payer MEDICARE, OTHER, SELFPAY ==
[2024-05-23 16:40] LABS: Anion Gap 6 (5-15); BUN 17 mg/dL (7-18); BUN/Creat Ratio 17.3 RATIO (10-20); Calcium,Total 9.3 mg/dL (8.5-10.1); Chloride 106 mmol/L (98-107); Creatinine, Serum 0.98 mg/dL (0.70-1.30); EST Glomerular Filtration Rate 78 mL/min (>60); Est Glom Filt Rate - Afr Amer 95 mL/min (>60); Glucose 90 mg/dL (74-106); Potassium 4.7 mmol/L (3.5-5.1); Sodium Level 138 mmol/L (136-145)
== END | disposition home or self-care (01) ==
LOC: MFPLAB 12:28
PROVIDERS: PCP Family Medicine; Visit Provider Nurse Practitioner Family
DX: I10 Essential (primary) hypertension (principal)
CPT/HCPCS: 36415; 80048

== ENCOUNTER → 2024-07-28 | Outpatient (CLI) | payer MEDICARE, OTHER, SELFPAY ==
[2024-07-28 17:57] LABS: Absolute Lymphocyte Count 1.39 X10^3/uL (0.83-4.51); Absolute Neutrophil Count 3.7 X10^3/uL (2.0-7.7); Basophil# 0.03 X10^3/uL; Basophil% 0.5 % (0-1); Eosinophil# 0.12 X10^3/uL; Hematocrit 36.3 % (40-54); Hemoglobin 12.1 g/dL (13.0-16.5); Lymphocyte # 1.39 X10^3/ul (0.83-4.51); Lymphocyte % 23.4 % (19-41); Mean Corp Hgb Conc 33.3 g/dL (32-36); Mean Corpuscular Hgb 32.4 pg (27.0-32.0); Mean Corpuscular Volume 97.1 fL (80-94); Mean Platelet Vol. 11.6 fl (6.2-12.0); Monocyte# 0.68 X10^3/uL; Monocyte% 11.4 % (0-10); NRBC Flagged by Analyzer 0 % (0-5); Neutrophil # 3.69 X10^3/uL (2.7-7.7); Platelet Count 198 K/mm3 (150-450); RBC Distribution Width CV 13.6 % (11.6-14.6); RBC Distribution Width SD 48.7 fl (35.1-43.9); Red Blood Count 3.74 M/mm3 (4.6-6.2)
[2024-07-28 18:02] LABS: ALB/GLOB Ratio 1.1 RATIO (0.9-2.4); AST(SGOT) 21 U/L (15-37); Alanine Aminotransfer ALT/SGPT 25 U/L (16-61); Albumin, Serum 3.6 g/dL (3.2-5.0); Alkaline Phosphatase 91 U/L (45-117); Anion Gap 5 (5-15); BUN 30 mg/dL (7-18); BUN/Creat Ratio 27.8 RATIO (10-20); Calcium,Total 9.2 mg/dL (8.5-10.1); Chloride 104 mmol/L (98-107); Cholesterol 136 mg/dL (200); Creatinine, Serum 1.08 mg/dL (0.70-1.30); EST Glomerular Filtration Rate 70 mL/min (>60); Est Glom Filt Rate - Afr Amer 85 mL/min (>60); Globulin 3.3 g/dL (2.2-4.2); Glucose 103 mg/dL (74-106); High Density Lipoprotein 52 mg/dL; Potassium 4.3 mmol/L (3.5-5.1); Protein, Total 6.9 g/dL (6.4-8.2); Sodium Level 139 mmol/L (136-145); Triglycerides 177 mg/dL; Very Low Density Lipoprotein 35 mg/dL (5-40)
[2024-07-28 18:17] LABS: BNP,B-Type NATRIURETIC PEPTIDE 80.1 pg/mL (0-100)
== END | disposition home or self-care (01) ==
LOC: MFPLAB 16:02
PROVIDERS: Nurse Practitioner Family; PCP Family Medicine; Referring Provider Family Medicine; Visit Provider Family Medicine
DX: I48.92 Unspecified atrial flutter (principal); I47.20 Ventricular tachycardia, unspecified; I10 Essential (primary) hypertension; R06.09 Other forms of dyspnea; Z12.5 Encounter for screening for malignant neoplasm of prostate
CPT/HCPCS: 36415; 80053; 80061; 83735; 83880; 84153; 85025; G0103

== ENCOUNTER → 2024-12-12 | Outpatient (CLI) | payer MEDICARE, OTHER, SELFPAY ==
[2024-12-12 18:19] LABS: Absolute Lymphocyte Count 1.54 X10^3/uL (0.83-4.51); Basophil# 0.05 X10^3/uL; Basophil% 0.6 % (0-1); Eosinophil# 0.07 X10^3/uL; Eosinophils% 0.8 % (0-5); Hemoglobin 12.5 g/dL (13.0-16.5); Lymphocyte # 1.54 X10^3/ul (0.83-4.51); Lymphocyte % 18.5 % (19-41); Mean Corp Hgb Conc 32.9 g/dL (32-36); Mean Corpuscular Hgb 31.3 pg (27.0-32.0); Mean Platelet Vol. 11.4 fl (6.2-12.0); Monocyte% 8.4 % (0-10); NRBC Flagged by Analyzer 0 % (0-5); Neutrophil # 5.95 X10^3/uL (2.7-7.7); Neutrophil % 71.5 % (47-70); Platelet Count 175 K/mm3 (150-450); RBC Distribution Width CV 13.8 % (11.6-14.6); RBC Distribution Width SD 48.2 fl (35.1-43.9); White Blood Count 8.3 K/mm3 (4.4-11.0)
[2024-12-12 18:53] LABS: Cholesterol 150 mg/dL (<=200); High Density Lipoprotein 62 mg/dL; Low Density Lipoprotein Calc. 73 mg/dL; Triglycerides 74 mg/dL; Very Low Density Lipoprotein 15 mg/dL (5-40); cholesterol:hdl ratio screen 2.42
[2024-12-12 19:54] LABS: ALB/GLOB Ratio 1.5 RATIO (0.9-2.4); AST(SGOT) 37 U/L (<=37); Alanine Aminotransfer ALT/SGPT 31 U/L (<=46); Albumin, Serum 4.1 g/dL (3.4-4.8); Alkaline Phosphatase 79 U/L (40-129); Anion Gap 13 (5-15); BUN 31 mg/dL (4-19); BUN/Creat Ratio 27.3 RATIO (10-20); Calcium,Total 9.4 mg/dL (7.6-11.0); Carbon Dioxide 21.2 mmol/L (21.0-32.0); Chloride 105 mmol/L (98-108); Creatinine, Serum 1.15 mg/dL (0.70-1.20); EST Glomerular Filtration Rate 65 (>60); Globulin 2.8 g/dL (2.2-4.2); Glucose 112 mg/dL (70-99); Potassium 4.8 mmol/L (3.3-5.1); Protein, Total 6.9 g/dL (5.9-8.4); Sodium Level 139 mmol/L (133-145); Total Bilirubin 0.47 mg/dL (0.00-1.30)
== END | disposition home or self-care (01) ==
LOC: MTLAB 14:25
PROVIDERS: PCP Family Medicine; Referring Provider Family Medicine; Visit Provider Family Medicine
DX: D64.9 Anemia, unspecified (principal); I10 Essential (primary) hypertension
CPT/HCPCS: 36415; 80053; 80061; 85025

== ENCOUNTER → 2025-04-12 | Outpatient (CLI) | payer MEDICARE, OTHER, SELFPAY ==
[2025-04-12 12:38] LABS: Hematocrit 41.9 % (40-54); Hemoglobin 13.6 g/dL (13.0-16.5); Mean Corp Hgb Conc 32.5 g/dL (32-36); Mean Corpuscular Volume 98.1 fL (80-94); Mean Platelet Vol. 10.8 fl (6.2-12.0); Platelet Count 224 K/mm3 (150-450); RBC Distribution Width CV 13.4 % (11.6-14.6); RBC Distribution Width SD 48.6 fl (35.1-43.9); Red Blood Count 4.27 M/mm3 (4.6-6.2); White Blood Count 6.4 K/mm3 (4.4-11.0)
[2025-04-12 12:50] LABS: Prothrombin Time (Protime)PT. 12.9 SECONDS (11.7-14.9)
[2025-04-12 12:51] LABS: Partial Thromboplast Time 25.1 Seconds (24.1-36.2)
[2025-04-12 13:25] VITALS: BP 133/59; PULSE 65; RESP 18; TEMP 36.7; O2SAT 98; BMI 27.3
--- NOTE | 2025-04-12 13:35 | RAD_ITS ---
PROCEDURE: LUMBAR MYELOGRAM 04/12/2025 REASON FOR EXAM: LOW BACK PAIN TECHNIQUE: LUMBAR MYELOGRAM COMPARISON: Lumbar spine study of 06/09/2022. FINDINGS: Postsurgical changes of the pelvis are again noted. Degenerative changes of the lumbar spine are again seen, with disc space narrowing throughout the entire lumbar spine. Procedure: Following informed consent, and using standard sterile technique, a fluoroscopically guided lumbar myelogram was performed. 2% lidocaine local anesthesia was followed by placement of a 22 gauge 3.5 in spinal needle into the spinal canal at the L2 level via a left posterior oblique approach. Approximately 17 mL of Isovue 200-M contrast material was then instilled, confirmed with fluoroscopic guidance. Fluoroscopy time: 98 seconds. Dose: 178.6 mGy-cm. RAD/Lumbar Myelogram IMPRESSION: Postcontrast images show moderate spinal canal narrowing of the L4-L5 level and mild spinal canal narrowing of the L3-L4 level. Reading Location: [place] [id number]
[2025-04-12] MEDS: Lidocaine 2% (5ml sdv) 5 ML VIAL.MPF INFILT (13:54)
[2025-04-12 14:09] VITALS: BP 150/80; PULSE 74; RESP 18; O2SAT 98
--- NOTE | 2025-04-12 15:04 | CT_ITS ---
PROCEDURE: SPINE LUMBAR WITH CONTRAST 04/12/2025 REASON FOR EXAM: LOW BACK PAIN TECHNIQUE: SPINE LUMBAR WITH CONTRAST CONTRAST: Approximately 17 mL of Isovue 200-M contrast material was then instilled, confirmed with fluoroscopic guidance. See dedicated fluoroscopic procedural report for detail performed on the same day. One or more dose reduction techniques were used (e.g., Automated exposure control, adjustment of the mA and/or kV according to patient size, use of iterative reconstruction technique). RADIATION DOSE SUMMARY: CTDlvol: 27 mGy DLP: 991 mGycm COMPARISON: June 09, 2022, June 20, 2022, April 12, 2025 FINDINGS: Vertebrae: Bone mineralization is decreased. Mild anterior wedging of T12 and L1 vertebral bodies with a proximally 25% height loss. Marginal endplate spurs are seen throughout the lumbar spine with bridging osteophytes anteriorly at L1/2, L2/3, L3/4. Large anterior osteophytes at L4/5. Alignment: Mild straightening of the lumbar lordosis. Conus medullaris: Terminates at T12/L1. Appearance is unremarkable. There is no clumping of nerve roots to suggest arachnoiditis. T12-L1: Moderate loss of disc height. Minimal, diffuse disc bulge. No central stenosis. Borderline bilateral exit foraminal narrowing. L1-2: Mild loss of disc height. Mild, diffuse disc bulge. No central stenosis. Borderline bilateral exit foraminal narrowing. L2-3: Mild loss of disc height. Mild, diffuse disc bulge. No central stenosis. Borderline exit foraminal narrowing on the right. L3-4: Wkdt-ar-fdrqbadn loss of disc height. Vacuum disc phenomenon. Diffuse disc bulge. Borderline central stenosis at 10 mm AP. Minimal facet hypertrophy. Btodd-vjpvsli-iual-left exit foraminal narrowing. Correlate with L3 radiculopathy. L4-5: Left laminectomy. Mild loss of disc height. Vacuum disc phenomenon. Diffuse disc bulge with focal protrusion left paracentral, left sub foraminal, left foraminal region. Marked thickening of the right ligamentum flavum. Mild facet hypertrophy. The combination of the above findings distorts the thecal sac with extradural defects from disc material and thickening of the ligamentum flavum. The central canal is significantly narrowed to 5.3 mm transverse in narrowest dimension. Severe exit foraminal narrowing bilaterally. Correlate with bilateral L4 radiculopathy and likely radiculopathy of the traversing left L5 nerve root. Involvement of the traversing right L5 nerve root not excluded. L5-S1: Mild, diffuse disc bulge. No central stenosis. Mild facet hypertrophy. Exit foraminal narrowing, [id number]-trte-right. Correlate with L5 radiculopathy. Sacrum: Mild degenerative changes of the SI joints. No fracture. CT/Spine Lumbar WITH Contrast IMPRESSION: 1. Multilevel degenerative disc disease outlined above. Postsurgical change L 4/5. This region is associated with central stenosis. See above description. 2. Straightening of the normal lumbar lordosis. 25% height loss from anterior wedging at T12 and L1. Reading Location: [id number]
[2025-04-12 15:30] VITALS: BP 153/78; PULSE 86; RESP 18; O2SAT 97
== END | disposition home or self-care (01) ==
PROVIDERS: PCP Family Medicine; Referring Provider Specialist; Visit Provider Specialist
DX: Z01.812 Encounter for preprocedural laboratory examination (principal); I48.91 Unspecified atrial fibrillation; M54.16 Radiculopathy, lumbar region
CPT/HCPCS: 36415; 62304; 72132; 85027; 85610; 85730

== ENCOUNTER → 2025-05-11 | Outpatient (CLI) | payer MEDICARE, OTHER, SELFPAY ==
[2025-05-11 18:10] LABS: Anion Gap 10 (5-15); BUN 27 mg/dL (4-19); BUN/Creat Ratio 22.8 RATIO (10-20); Calcium,Total 9.5 mg/dL (7.6-11.0); Carbon Dioxide 25.6 mmol/L (21.0-32.0); Chloride 104 mmol/L (98-108); Glucose 83 mg/dL (70-99); Potassium 5.1 mmol/L (3.3-5.1)
[2025-05-11 18:36] LABS: Hematocrit 40.2 % (40-54); Hemoglobin 13.0 g/dL (13.0-16.5); Immature Granulocytes Count 0.040 X10^3/uL (0.0-0.0); Mean Corp Hgb Conc 32.3 g/dL (32-36); Mean Corpuscular Volume 97.6 fL (80-94); Mean Platelet Vol. 11.4 fl (6.2-12.0); NRBC Flagged by Analyzer 0 % (0-5); Platelet Count 217 K/mm3 (150-450); RBC Distribution Width CV 13.5 % (11.6-14.6); RBC Distribution Width SD 48.8 fl (35.1-43.9); Red Blood Count 4.12 M/mm3 (4.6-6.2); White Blood Count 7.8 K/mm3 (4.4-11.0)
== END | disposition home or self-care (01) ==
LOC: MFPLAB 14:21
PROVIDERS: PCP Family Medicine; Referring Provider Family Medicine; Visit Provider Family Medicine
DX: Z01.818 Encounter for other preprocedural examination (principal)
CPT/HCPCS: 36415; 80048; 85025

== ENCOUNTER → 2025-05-17 | Day surgery (SDC) | payer MEDICARE, OTHER, SELFPAY ==
[2025-05-17 18:51] LABS: AST(SGOT) 29 U/L (<=37); Alanine Aminotransfer ALT/SGPT 28 U/L (<=46); Albumin, Serum 4.2 g/dL (3.4-4.8); Alkaline Phosphatase 86 U/L (40-129); Bilirubin, Direct 0.18 mg/dL (0.00-0.30); Globulin 2.8 g/dL (2.2-4.2); HIV Nonreactive (Nonreactive); Hepatitis C Antibody Nonreactive (Nonreactive); Magnesium 2.2 mg/dL (1.5-2.2)
== END | disposition home or self-care (01) ==
LOC: MFPLAB 14:55
PROVIDERS: PCP Family Medicine; Visit Provider Orthopaedic Surgery Orthopaedic Surgery of the Spine
DX: Z01.818 Encounter for other preprocedural examination (principal); E78.00 Pure hypercholesterolemia, unspecified; I10 Essential (primary) hypertension; K21.9 Gastro-esophageal reflux disease without esophagitis; Z79.899 Other long term (current) drug therapy; Z53.9 Procedure and treatment not carried out, unspecified reason
CPT/HCPCS: 36415; 80076; 83036; 83735; 86703; 86706; 86708; 86803; 86850; 86900; 86901; 87081

== ENCOUNTER 2025-05-23 12:04 | Inpatient (IN) | payer MEDICARE, OTHER, SELFPAY ==
--- NOTE | 2025-05-16 13:43 | PAT.ANESEVAL ---
Pre-Assessment Diagnosis/Proposed Procedure Planned Operative Procedure(s): ERAS, 360 Lumbar Fusion L4-5 Anesthesia History Anesthesia History - photolithographic stripper: Anesthesia History - photolithographic stripper Hx Hospitalization No 05/16/25 10:40 Any Problems With Anesthesia No 05/16/25 10:40 Cholinesterase deficiency No 05/16/25 10:40 You/Your Family Experience No 05/16/25 10:40 fever (hyperthermia) with Relationship Recent Exposure to Contagious No 11/30/23 09:20 Disease Does patient have nerve No 05/16/25 10:40 stimulator Patient instructed to have device shut off --Does patient have Pacemaker or ICD? When Was Last Pacemaker Check 11/30/15 VIA PHONE 06/03/22 13:38 QUESTION #4 FULL TEXT: You/Your Family Experience fever (hyperthermia) with Anesthesia Last Oral Intake Last Oral intake: Last Oral Intake NPO since Meds taken in AM with sips of water? Meds patient instructed to take am of surgery PONV PONV - photolithographic stripper: PONV - photolithographic stripper Female No 05/16/25 10:40 HX of Motion Sickness No 05/16/25 10:40 HX of N/V After Surgery No 05/16/25 10:40 Non-Smoker Yes 05/16/25 10:40 Duration of Surgery greater Yes 05/16/25 10:40 than 60 minutes Number of Risk Factors 2 05/16/25 10:40 PONV Score Moderate Risk 05/16/25 10:40 Height & Weight Height & Weight: Anesthesia: Height & Weight Height 5 ft 8 in 04/17/25 13:16 Respiratory Assessment Respiratory Assessment - photolithographic stripper: Respiratory Tract Infection Hx - photolithographic stripper Hx Respiratory Tract Infection No 05/16/25 10:40 STOP Sleep Apnea STOP Sleep Apnea - photolithographic stripper: STOP Sleep Apnea - photolithographic stripper Hx Hypertension Yes: PER PT, CONTROLLED ON 05/16/25 10:40 MED Hx Sleep Apnea Yes 05/16/25 10:40 CPAP Yes 05/16/25 10:40 BIPAP No 05/16/25 10:40 Do you snore loudly (louder than talking or can be heard Do you often feel tired/ fatigued/ sleepy during daytime? Has anyone observed you stop breathing during sleep? STOP Results Positive 05/16/25 10:40 QUESTION #5 FULL TEXT : Do you snore loudly (louder than talking or can be heard through closed doors)? Tobacco Use History Tobacco Use History - photolithographic stripper: Tobacco Use History - photolithographic stripper Tobacco Use Smoking Status Never smoker 05/16/25 10:40 Hx Tobacco Use No 05/16/25 10:40 Years Smoking Packs Smoked per Day Smoking Cessation Date was within the last 15 years Hx Smoking Cessation Date Hx Smoking Cessation Counseling Hematologic Medial History Hematologic Hx - photolithographic stripper: Hematologic Medical Hx - information consultant Hx of Blood Transfusion No 05/16/25 10:40 Hx of Transfusion in last 3 No 05/16/25 10:40 Months Date of Last Transfusion (if within last 3 months) Ever experience any problems No 05/16/25 10:40 with transfusion(s)? Specify any problems Hx of Preganancy in last 3 N/A 05/16/25 10:40 Months Nurse Filling Out Transfusion MARCELLA 05/16/25 10:40 & Questions: Date: 05/16/25 05/16/25 10:40 Time: 10:42 05/16/25 10:40 Patient unable to answer at this time (ie. confused, unrespo /Reproduction History /Reproductive History - photolithographic stripper: /Reproductive Hx- photolithographic stripper Hx Now No 05/16/25 10:40 Gestational Age (in weeks): EDC: Hx Hx Para Hx Section SAB No 05/16/25 10:40 [facility] Medical History (Updated 05/16/25 @ 10:53 by Zulma Alcazar) Ambulates with cane High cholesterol Gastric reflux Sleep apnea Hypertension Shortness of breath on exertion Leg cramps History of pacemaker History of rheumatic fever History of atrial fibrillation Wears glasses Excessive bleeding Arthritis Difficulty swallowing Non-smoker CPAP (continuous positive airway pressure) dependence History of echocardiogram History of stress test Cardiology follow-up encounter Non-sustained ventricular tachycardia Left bundle branch block (LBBB) Raynaud disease Essential (primary) hypertension Over weight LORI (obstructive sleep apnea) 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 Sinus bradycardia Mobitz type II atrioventricular block Cardiomyopathy in disease classified elsewhere Home Medications ?Medication ?Instructions ?Recorded ?Last Taken ?Type alprazolam 0.5 mg tablet 0.5 mg PO QHS anxiety 12/07/15 Unknown History acetaminophen 500 mg tablet 1,000 mg PO DAILY PAIN 12/25/22 Unknown History (Tylenol Extra Strength) ipratropium bromide 21 mcg (0.03 2 spray intranasal DAILY CONGESTION 09/23/23 Unknown History %) nasal spray metoprolol succinate 50 mg 50 mg PO BID HEART RATE #60 tabs 01/18/25 Unknown Rx tablet,extended release 24 hr apixaban 5 mg tablet (Eliquis) 5 mg PO BID BLOOD THINNER #60 tabs 03/27/25 Unknown Rx cyclobenzaprine 10 mg tablet 10 mg PO TID PRN muscle spasm #30 04/26/25 Unknown Rx tabs losartan 25 mg tablet 25 mg PO QHS HTN 05/10/25 Unknown History losartan 50 mg tablet 50 mg PO BID HTN 05/10/25 Unknown History meloxicam 15 mg tablet 15 mg PO .QOD INFLAMATION 05/10/25 Unknown History tramadol 50 mg tablet 50 mg PO TID PRN pain 05/10/25 Unknown History rosuvastatin 20 mg tablet 20 mg PO QODAY HLD 05/16/25 Unknown History simethicone 250 mg capsule (Gas-X) 250 mg PO DAILY PRN abdominal 05/16/25 Unknown History distention Allergy/AdvReac Type Severity Reaction Status Date / Time diltiazem AdvReac Intermediate Facial Verified 05/16/25 10:32 flushing and fatigue prednisone AdvReac Mild Other Verified 05/16/25 10:32 carvedilol (From Coreg) AdvReac face Verified 05/16/25 10:32 tingling Family History Mother CAD (coronary artery disease) Father CAD (coronary artery disease) Brother Polycystic kidney disease Surgical History History of appendectomy History of colonoscopy Biventricular cardiac pacemaker in situ (07/13/15) History of herniorrhaphy History of carpal tunnel surgery of right wrist History of esophagogastroduodenoscopy (EGD) Social History Smoking Status: Never smoker alcohol intake: never substance use type: does not use caffeine: Yes Type: carbonated beverages and tea additional social history: Denies daily use of aspirin or ibuprofen. Audit: Pertinent Findings Pertinent Findings EKG Perinent findings: May 10, 2025. Pacer with atrial sensed, ventricular paced rhythm. Stress test pertinent findings: 08/02/2021. EF of 57%. No areas of reversibility are noted to suggest ischemia. No previous infarct. Echo (EF%) pertinent findings: 01/20/2022. EF of 55%. No aortic stenosis noted. Recommendation Anesthesia Recommendation Anesthesia recommendation: OPTIMIZED for anesthesia
[2025-05-23] VITALS (18 sets, daily range): BP systolic 99–146; BP diastolic 61–81; PULSE 57–85; RESP 14–16; TEMP 36.1–36.8; O2SAT 95–100; BMI 29.7
--- OUTSIDE RECORDS SUMMARY | 2025-05-23 05:35 | XMS RPT_ITS | CCD ---
Author Organization [facility] CliniSyri Care Team Providers Care Health Teacher Name Role Phone ALESSANDRO Gunn, Estefanía Pitt Unavailable Unavailable ALESSANDRO Gunn Sue M Unavailable Unavailable JOO Mina, Stacy Pitt Unavailable [phone] JOO Mina, Stacy Pitt Unavailable [phone] ALESSANDRO Gunn, Estefanía Pitt Unavailable Unavailable ALESSANDRO Gunn Sue M Unavailable [...] Unavaila ble NO, DOCTOR ON Consulting Unavailable Dr. Joaquin Melo Referring Provider Dr. Donald Burt Attending Provider Dr. Paul Mac Primary Care Provider [phone] Paul Mac Referring Provider Sharon Gunn Attending Provider Unavailable Dr. Richie Tan Attending Provider [phone] Joaquin Grady MD Primary Care Provider [phone] Paul Mac Primary Care Provider Dr. Paul Mac Referring Provider Dr. Richie Tan Attending Provider Dr. Paul Mac Primary Care Provider [phone] Paul Mac Referring Provider Dr. Albert Velared Attending Provider Dr. Donald Burt Attending Provider Sharon Gunn Attending Provider Unavailable Dr. Paul Mac Primary Care Provider Estefania, Dr. Miller Referring Provider Dr. Albert Velarde Attending Provider Dr. Donald Burt Attending Provider Sharon Gunn Attending Provider Unavailable Roof STAFF INTERPRETER, STAFF INTERPRETER-C Joaquin Landon Attending Provider Estefania, Dr. Miller Primary Care Provider Estefania, Dr. Miller Referring Provider Sharon Gunn Attending Provider Unavailable Roof STAFF INTERPRETER, STAFF INTERPRETER-C Joaquin Landon Attending Provider Dr. Paul Mac Primary Care Provider Estefania, Dr. Miller Referring Provider Sharon Gunn Attending Provider Unavailable Roof STAFF INTERPRETER, STAFF INTERPRETER-C Joaquin Lanodn Attending Provider Dr. Paul Mac Primary Care Provider Dr. Donald Burt Attending Provider Dr. Donald Burt Referring Provider Dr. Donald Burt Other Provider Dr. Paul Mac Primary Care Provider Dr. Donald Burt Attending Provider Dr. Donald Burt Referring Provider Dr. Paul Mac Referring Provider Roof STAFF INTERPRETER, STAFF INTERPRETER-C Joaquin Landon Attending Provider Dr. Richie Tan Attending Provider [phone] Richie Tan Referring Provider Dr. Jose Aceves Attending Provider Dr. Richie Tan Other Provider Estefania RO, Dr. Miller Primary Care Provider Javed RO, Dr. Bennett Attending Provider Javed RO, Dr. Bennett Referring Provider Estefania RO, Dr. Miller Referring Provider Lakeshia DC-CDebbie Attending Provider Estefania RO, Dr. Miller Attending Provider Estefania RO, Dr. Miller Primary Care Provider Javed RO, Dr. Bennett Attending Provider Javed RO, Dr. Bennett Referring Provider Sharon Gunn Attending Provider Unavailable Dariana RO, Dr. Naqvi Attending Provider Estefania RO, Dr. Miller Primary Care Provider Estefania RO, Dr. Miller Referring Provider Beth Kim Attending Provider Estefania RO, Dr. Miller Primary Care Provider Javed RO, Dr. Bennett Attending Provider Javed RO, Dr. Bennett Referring Provider Estefania RO, Dr. Miller Referring Provider Christi RO, Dr. Rausch Attending Provider [phone] Christi RO, Dr. Rausch Referring Provider [phone] Sharon Gunn Attending Provider Unavailable James DC-Joaquin Suazo Attending Provider Estefania RO, Dr. Miller Attending Provider Darryl RO, Dr. Wills Attending Provider Paul Mac Primary Care Unavailable Shalom Barraza Referring Unavailable Shalom Barraza Attending Unavailable Paul Mac Primary Care Unavailable Donald Burt Attending Unavailable Javed, Donald Referring Unavailable Paul Mac Primary Care Unavailable Javed, Donald Referring Unavailable Javed, Donald Attending Unavailable Paul Mac Primary Care Unavailable Paul Mac Attending Unavailable Mac, Referring Unavailable Roof STAFF INTERPRETER, Joaquin H Attending Unavailable Mac, Primary Care Unavailable Andrews, Johann Referring Unavailable Andrews, Johann Attending Unavailable Andrews, Johann Admitting Unavailable Mac, Primary Care Unavailable Andrews, Johann Attending Unavailable Mac, Primary Care Unavailable Mac, Primary Care Unavailable Javed, [place] Attending Unavailable Debbie Asher Attending Unavailable Mac, Primary Care Unavailable Amc, Referring Unavailable Mac, Primary Care Unavailable Javed, [place] Referring Unavailable Javed, Donald Attending Unavailable JalynBeth palma Attending Unavailable Mac, Primary Care Unavailable Mac, Referring Unavailable Mac, Primary Care Unavailable Javed, Donald Attending Unavailable Mac, Primary Care Unavailable Javed, [place] Attending Unavailable Beth Gunderson Attending Unavailable Mac, Primary Care Unavailable Mac, Referring Unavailable Mac, Primary Care Unavailable Javed, [place] Referring Unavailable Javed, Donald Attending Unavailable Mac, Primary Care Unavailable Javed, [place] Referring Unavailable Javed, Donald Attending Unavailable Roof STAFF INTERPRETER, Joaquin H Attending Unavailable Mac, Primary Care Unavailable Mac, Referring Unavailable Roof STAFF INTERPRETER, Joaquin H Attending Unavailable Mac, Referring Unavailable Mac, Primary Care Unavailable Darryl, Johann Attending Unavailable Mac, Primary Care Unavailable Mac, Referring Unavailable Mac, Attending Unavailable Mac, Primary Care Unavailable Mac, Referring Unavailable Mac, Attending Unavailable Mac, Primary Care Unavailable Mac, Referring Unavailable Sharon Gunn Attending Unavailable Amc, Referring Unavailable Mac, Primary Care Unavailable Mac, Primary Care Unavailable Javed, [place] Attending Unavailable Mac, Referring Unavailable Westbrook, Driss Attending Unavailable Mac, Primary Care Unavailable Mac, Primary Care Unavailable Javed, [place] Attending Unavailable Javed, Donald Referring Unavailable Mac , Dr. Miller Primary Care Provider Javed RO, Dr. Bennett Attending Provider [phone] Dr. Donald Burt MD Referring Provider [phone] Estefania RO, Dr. Miller Referring Provider [phone] Allergies Allergy Classification Reported Allergen(s) Allergy Type Date of Onset Reaction(s) [facility] tingling [facility] (17 sources) dilTIAZem Drug Allergy 3 Facial flushing and fatigue [facility] (2 sources) predniSONE Drug Allergy 5 Other [facility] Comment on above: HOT FLUSHED FACE (1 source) carvedilol Drug Allergy 5 [facility] (1 source) dilTIAZem Drug Allergy 5 [facility] (1 source) predniSONE Drug Allergy 5 [facility] Medications Current Medications Medication Drug Class(es) Dates Sig (Normalized) Sig (Original) acetaminophen 500 mg oral tablet (20 sources) Start: 07-03-2022 End: 12-25-2022 take 2 tablets by mouth once daily Acetaminophen (Tylenol Extra Strength) 500 mg tablet Active 1000 mg PO DAILY December 25, 2022 3:39pm PAIN ALPRAZolam 0.5 mg oral tablet (20 sources) Benzodiazepine Start: 07-25-2015 ALPRAZolam (XANAX) 0.25 mg tablet Take 0.25 mg by mouth as needed. 0 07/25/2015 Active Start: 07-20-2015 take 1 tablet by bianca th at bedtime Alprazolam 0.5 MG tablet Active 0.5 mg PO AT BEDTIME December 07, 2015 12:00am anxiety Comment on above: Take 0.25 mg by mout h as needed. cyclobenzaprine hydrochloride 10 mg oral tablet (20 sources) Muscle Relaxant Start: 04-26-20 take 1 tablet by mouth three times daily as needed for muscle spasms Cyclobenzaprine 10 mg tablet Active 10 mg PO THREE TIMES A DAY as needed for muscle spasm 30 0 April 26, 2025 12:00am Start: 03-16-2025 End: 04-26-2025 take 1 tablet by mouth every eight hours as needed for pain Cyclobenzaprine 10 mg tablet Discontinued 10 mg PO EVERY 8 HOURS as needed for low back pain March 16, 2025 12:00am April 26, 2025 4:01pm Start: 07-20-2024 End: 03-16-2025 take 1 tablet by mouth once daily as needed for muscle spasms Cyclobenzaprine 5 mg tablet Discontinued 5 mg PO daily as needed for muscle spasm July 20, 2024 11:28am March 16, 2025 2:22pm Start: 12-25-2022 End: 07-20-2024 take 1 tablet by mouth twice daily as needed for muscle spasms Cyclobenzaprine 5 mg tablet Discontinued 5 mg PO TWICE A DAY as needed for muscle spasm December 25, 2022 12:00am July 20, 2024 11:32am Start: 07-25-2015 End: 08-15-2016 take 1 tablet by mouth once daily as needed CYCLOBENZAPRINE HCL 10 MG TABS One tablet by mouth daily at every night prn CYCLOBENZAPRINE HCL [id number] Estefanía Gunn RN ipratropium bromide 0.021 mg/actuat metered dose nasal spray (4 sources) Anticholinergic Start: 09-23-2023 Ipratropium Br omide 21 mcg (0.03 %) spray,non-aerosol Active 2 NMA INTRANASAL DAILY September 23, 2023 1:00am CONGESTION Start: 09-23-2023 Ipratropium Br omide Active 2 SPRAY INTRANASAL DAILY September 23, 2023 1:00am Ipratropium [place] 21 mcg (0.03 %) spray,non-aerosol (10 sources) Start: 09-23-2023 Ipratropium [place] 21 mcg (0.03 %) spray,non-aerosol Active 2 NMA INTRANASAL DAILY September 23, 2023 1:00am losartan potassium 25 mg oral tablet (20 sources) Angiotensin 2 Receptor Elizabeth Start: 05-10-2025 take 1 tablet by mouth twice daily Losartan 50 mg tablet Active 50 mg PO TWICE A DAY May 10, 2025 3:33pm HTN Start: 01-18-2025 End: 05-10-2025 Losartan 50 mg tablet Discon tinued 50 mg PO .COMPLEX January 18, 2025 11:02am May 10, 2025 3:35pm 25-50mg qam; Takes 25mg and 50 mg QHS to =75mg Start: 06-02-2024 End: 05-10-2025 Losartan 25 mg tablet Discon tinued 25 mg PO .COMPLEX 90 3 June 13, 2024 4:02pm July 20, 2024 11:32am 25 mg orally take at bedtime with a 50 mg tablet to = 75mg (pt takes just 50 mg in the morning); Start: 06-02-2024 End: 07-20-2024 Losartan 50 mg tablet Discon tinued 50 mg PO .COMPLEX 180 June 13, 2024 4:02pm July 20, 2024 11:32am 50 mg orally in the morning and take with a 25mg tablet to = 75 mg at bedtime; Start: 06-02-2024 End: 01-18-2025 Losartan 50 mg tablet Discon tinued 50 mg PO .COMPLEX July 20, 2024 11:30am January 18, 2025 11:04am 50 mg orally in the morning with a 25mg tablet to = 75 mg QAM Takes 50 mg QHS Start: 02-12-2024 End: 06-02-2024 Losartan 50 mg tablet Discon tinued 75 mg PO TWICE A DAY 300 3 April 07, 2024 9:21am June 02, 2024 5:11pm Start: 12-25-2021 End: 02-12-2024 take 1 tablet by mouth twice daily Losartan 50 mg tablet Discontinued 50 mg PO TWICE A DAY 180 January 26, 2023 1:25pm February 12, 2024 2:29pm Start: 07-22-2021 End: 12-25-2021 take 1 tablet by mouth twice daily Losartan 25 mg tablet Discontinued 25 mg PO TWICE A DAY 180 September 23, 2021 4:53pm December 25, 2021 2:22pm Start: 03-28-2021 End: 07-22-2021 Losartan 25 mg tablet Discon tinued 37.5 mg PO TWICE A DAY March 28, 2021 12:00am July 22, 2021 12:41pm Start: 03-28-2021 End: 07-22-2021 take 37.5 mg by mouth twice daily Losartan Discontinued 37.5 MG PO TWICE A DAY March 28, 2021 12:00am July 22, 2021 12:41pm Start: 09-27-2020 End: 11-09-2020 take 1 tablet by mouth once daily Losartan 25 mg tablet Discontinued 25 mg PO DAILY 90 September 27, 2020 1:00am November 09, 2020 2:55pm On Hold: Hypotension Start: 07-02-2020 End: 09-27-2020 take 0.5 tablet by mouth in the evening Losartan 25 mg tablet Discontinued 25 mg PO .COMPLEX 135 3 August 21, 2020 5:34pm September 27, 2020 12:28pm 25 mg PO 1 tablet AM, 1/2 tablet PM; Start: 02-20-2017 End: 07-02-2020 take 1 tablet by mouth once daily Losartan 25 mg tablet Discontinued 25 mg PO daily 90 3 January 31, 2019 11:54am September 29, 2019 12:26pm Comment on above: Take 25 mg by mouth once daily. meloxicam 15 mg oral tablet (20 sources) Nonsteroidal Anti-inflammatory Drug Start: take 1 tablet by mouth every other day Meloxicam 15 mg tablet Active 15 mg PO .QOD May 10, 2025 3:34pm INFLAMATION Start: 12-25-2021 End: 05-10-2025 take 1 tablet by mouth once daily Meloxicam 15 mg tablet Discontinued 15 mg PO DAILY December 25, 2021 12:00am May 10, 2025 3:35pm Start: 03-28-2021 End: 12-25-2021 take 1 tablet by mouth twice daily Meloxicam 7.5 mg tablet Discontinued 7.5 mg PO TWICE A DAY March 28, 2021 12:00am December 25, 2021 1:53pm 24 hr metoprolol succinate 50 mg extended release oral tablet (20 sources) beta-Adrenergic Elizabeth Start: 01-18-2025 take 1 tablet by mouth twice daily Metoprolol Succinate 50 mg tablet extended release 24 hr Active 50 mg PO TWICE A DAY 60 January 18, 2025 11:37am HEART RATE Start: 01-14-2024 End: 01-18-2025 take 1 tablet by mouth once daily Metoprolol Succinate 50 mg tablet extended release 24 hr Discontinued 50 mg PO DAILY 30 January 18, 2024 8:37am January 18, 2025 11:39am simethicone 250 mg oral capsule (2 sources) Start: 05-16-2025 take 1 capsule by mouth once daily as needed Simethicone (Gas-X) 250 mg capsule Active 250 mg PO DAILY as needed for abdominal distention May 16, 2025 12:00am traMADol hydrochloride 50 mg oral tablet (13 sources) Opioid Agonist Start: 03-16-2025 End: 05-10-2025 take 1 tablet by mouth three times daily as needed for pain Tramadol 50 mg tablet Active 50 mg PO THREE TIMES A DAY as needed for pain May 10, 2025 3:35pm Completed/Discontinued Medications Medication Drug Class(es) Dates Sig (Normalized) Sig (Original) acetaminophen 325 mg / oxyCODONE hydrochloride 5 mg oral tablet (20 sources) Opioid Agonist Start: 12-13-2015 End: 10-01-2017 Oxycodone-Acetamino phen 1 TABLET tablet Discontinued 1 - 2 {tbl} PO EVERY 4 HOURS NEEDED as needed for Pain 30 December 13, 2015 12:00am October 01, 2017 11:00am Start: 12-13-2015 End: 10-01-2017 take 1 tablet by mouth every four hours as needed Oxycodone-Acetaminophen Discontinued 1 - 2 TABLET PO EVERY 4 HOURS NEEDED December 13, 2015 12:00am October 01, 2017 11:00am amLODIPine 5 mg oral tablet (20 sources) Dihydropyridine Calcium Channel Elizabeth Start: 09-29-2019 End: 10-14-2019 take 1 tablet by mouth once daily Amlodipine 5 mg tablet Discontinued 5 mg PO DAILY 90 September 29, 2019 1:00am October 14, 2019 9:47am Start: 07-20-2015 End: 07-23-2015 take 1 tablet by mouth once daily NORVASC 5 MG TABS One tablet by mouth daily (check dose at appt) AMLODIPINE BESYLATE [id number] Lauren Zarate RN apixaban 5 mg oral tablet (20 sources) Factor Xa Inhibitor Start: 01-05-2023 End: 03-27-2025 take 1 tablet by mouth twice daily Apixaban (Eliquis) 5 mg tablet Discontinued 5 mg PO TWICE A DAY 60 August 01, 2024 12:56pm March 27, 2025 3:11pm aspirin 81 mg chewable tablet (20 sources) Platelet Aggregation Inhibitor, Nonsteroidal Anti-inflammatory Drug Start: 08-05-2015 End: 01-05-2023 take 1 tablet by mouth once daily Aspirin 81 MG tablet,chewable Discontinued 81 mg PO DAILY@0800 August 05, 2015 1:00am January 05, 2023 4:22pm Start: 07-20-2015 End: 07-23-2015 take 1 tablet by mouth once daily ASPIRIN 81 MG TABS One tablet by mouth daily ASPIRIN [id number] Lauren Zarate RN Start: 07-20-2015 End: 07-23-2015 take 1 tablet by mouth once daily ASPIRIN 81 MG TABS One tablet by mouth daily ASPIRIN [id number] Lauren Zarate RN Start: 07-31-2011 take 1 tablet by bianca th once daily aspirin, enteric coated (ECOTRIN LOW STRENGTH) 81 mg ORAL EC tablet Take 1 tablet by mouth once daily. 0 07/31/2011 Active Comment on above: Take 1 tablet by bianca th once daily. carvedilol 6.25 mg oral tablet (20 sources) alpha-Adrenergic Elizabeth, beta-Adrenergic Elizabeth Start: 01-06-2020 End: 09-27-2020 take 3.125 mg by mouth twice daily at mealtime Carvedilol 6.25 mg tablet Discontinued 3.125 mg PO TWICE A DAY February 28, 2020 4:06pm September 27, 2020 12:07pm On Hold: flushing feeling must administer with a meal/food Start: 01-06-2020 End: 09-27-2020 take 3.125 mg by mouth twice daily at mealtime Carvedilol Discontinued 3.125 MG PO TWICE A DAY February 28, 2020 4:06pm September 27, 2020 12:07pm On Hold: flushing feeling must administer with a meal/food Start: 11-24-2019 End: 01-06-2020 take 3.125 mg by mouth once at mealtime Carvedilol 6.25 mg tablet Discontinued 3.125 mg PO ONCE November 24, 2019 3:43pm January 06, 2020 11:15am must administer with a meal/food Start: 11-24-2019 End: 01-06-2020 take 3.125 mg by mouth once at mealtime Carvedilol Discontinued 3.125 MG PO ONCE November 24, 2019 3:43pm January 06, 2020 11:15am must administer with a meal/food Start: 10-14-2019 End: 09-27-2020 take 1 tablet by mouth twice daily at mealtime Carvedilol 6.25 mg tablet Discontinued 6.25 mg PO TWICE A DAY October 14, 2019 1:00am September 27, 2020 12:07pm must administer with a meal/food Start: 11-05-2015 take 1 tablet by bianca once daily carvedilol (COREG) 6.25 mg tablet Take 6.25 mg by mouth once daily. 0 11/05/2015 Active Start: 07-23-2015 End: 09-29-2019 take 1 tablet by mouth twice daily Carvedilol 6.25 mg tablet Discontinued 6.25 mg PO TWICE A DAY 180 3 September 12, 2019 10:20am September 29, 2019 12:23pm Comment on above: Take 6.25 mg by mout once daily. cholecalciferol 0.025 mg oral tablet (20 sources) Vitamin D Start: 12-07-19 End: 12-26-19 take 1 tablet by mouth once daily Cholecalciferol (Vitamin D3) 1,000 UNIT tablet Discontinued 1000 U PO DAILY December 07, 2015 12:00am December 25, 2021 1:52pm Start: 07-31-2011 take 1 capsule by mo [facility] once daily Cholecalciferol, Vitamin D3, 10,000 unit ORAL Cap Take by mouth. Take one(1) capsule two(2) times daily. 0 07/31/2011 Active Comment on above: Take by mouth. Take one(1) capsule two(2) times daily. Take 1 tablet by bianca once daily. dexamethasone 6 mg oral tablet (12 sources) Corticosteroid Start: 04-15-20 End: 07-20-20 24 take 1 tablet by mouth once daily Dexamethasone 6 mg tablet Discontinued 6 mg PO DAILY 5 0 April 15, 2024 12:00am July 20, 2024 11:28am 24 hr dilTIAZem hydrochloride 120 mg extended release oral capsule (17 sources) Calcium Channel Elizabeth Start: 12-26-19 End: 01-10-20 23 take 1 capsule by mouth once daily Diltiazem Hcl 120 mg capsule,extended release 24 hr Discontinued 120 mg PO DAILY 90 December 25, 2022 12:00am January 09, 2023 9:48am dutasteride 0.5 mg oral capsule (20 sources) 5-alpha Reductase Inhibitor Start: 03-29-20 21 End: 07-03-20 22 take 1 capsule by mouth once daily Dutasteride 0.5 mg capsule Discontinued 0.5 mg PO DAILY March 29, 2021 12:00am July 03, 2022 11:16am furosemide 40 mg oral tablet (20 sources) Loop Diuretic Start: 10-13-19 End: 01-19-20 take 1 tablet by mouth once daily Furosemide 40 mg tablet Discontinued 40 mg PO .COMPLEX 20 0 October 13, 2024 10:10am January 18, 2025 11:00am 40 mg orally daily X 3 days; L GASSERI/B BIFIDUM/B LONGUM (PROBIOTIC COLON CARE ORAL) (3 sources) L GASSERI/B BIFIDUM/B LONGUM (PROBIOTIC COLON CARE ORAL) Take by mouth. 0 Active Comment on above: Take by mouth. lisinopril 5 mg oral tablet (20 sources) Angiotensin Converting Enzyme Inhibitor Start: 08-05-20 End: 09-22-19 take 2 tablets by mouth once daily Lisinopril 5 MG tablet Discontinued 10 mg PO DAILY August 05, 2015 1:00am September 22, 2017 1:53pm Start: 08-05-2015 End: 09-22-2017 take 10 mg by mouth once daily Lisinopril Discontinued 10 MG PO DAILY August 05, 2015 1:00am September 22, 2017 1:53pm Start: 07-23-2015 End: 02-20-2017 lisinopril (ZESTRIL, PRINIVI L) 10 mg tablet methylcellulose 500 mg oral tablet (3 sources) Methylcellulose, Laxative, (CITRUCEL) 500 mg Tab Take by mouth. 0 Active Comment on above: Take by mouth. Multivitamin,Tx-Iron-Min erals (9 sources) Start: 6 End: take 1 tablet by mouth once daily Multivitamin,Tx-Iron-Min erals Discontinued 1 TABLET PO DAILY December 07, 2015 2:02pm March 28, 2021 1:19pm Start: 12-07-2015 End: 03-28-2021 take 1 tablet by mouth once daily Multivitamin,Nw-Rucr-Ghmcmigx Discontinu ed 1 TABLET PO DAILY December 06, 2015 11:00pm March 28, 2021 12:19pm Start: 12-07-2015 End: 03-28-2021 take 1 tablet by mouth once daily Multivitamin,Kw-Dibx-Dqekzuuy Discontinu ed 1 TABLET PO DAILY December 07, 2015 12:00am March 28, 2021 1:19pm Multivitamin,Qk-Ustu-Kvrpkhg s 1 TABLET tablet (12 sources) Start: 12-07-2015 End: 03-28-2021 take 1 tablet by mouth once daily Multivitamin,Bp-Bpqt-Auoihdum 1 TABLET tablet Discontinued 1 {tbl} PO DAILY December 07, 2015 12:00am March 28, 2021 1:19pm 24 hr NIFEdipine 30 mg extended release oral tablet (20 sources) Dihydro pyridin e Calcium Channel Elizabeth Start: 12-25-2022 End: 12-25-2022 Nifedipine 30 mg tablet extended release Discontinued 15 mg PO DAILY December 25, 2022 3:40pm December 25, 2022 4:06pm Start: 12-25-2022 End: 12-25-2022 take 15 mg by mouth once daily Nifedipine Discontinued 15 MG PO DAILY December 25, 2022 3:40pm December 25, 2022 4:06pm Start: 12-25-2021 End: 12-25-2022 take 1 tablet by mouth once daily Nifedipine 30 mg tablet extended release Discontinued 30 mg PO DAILY 90 July 28, 2022 5:18pm December 25, 2022 3:41pm Start: 07-22-2021 End: 12-25-2021 Nifedipine 30 mg tablet exte nded release Discontinued 15 mg PO DAILY 30 July 22, 2021 12:40pm December 25, 2021 2:22pm Start: 07-22-2021 End: 12-25-2021 take 15 mg by mouth once daily Nifedipine Discontinued 15 MG PO DAILY July 22, 2021 12:40pm December 25, 2021 2:22pm Start: 03-28-2021 End: 07-22-2021 take 1 tablet by mouth once daily Nifedipine 30 mg tablet extended release Discontinued 30 mg PO DAILY 30 March 28, 2021 12:00am July 22, 2021 12:41pm omeprazole 20 mg delayed release oral capsule (20 sources) Proton Pump Inhibitor Start: 09-29-2019 End: 12-25-2022 take 1 capsule by mouth once daily Omeprazole 20 mg capsule,delayed release(DR/EC) Discontinued 20 mg PO DAILY September 29, 2019 1:00am December 25, 2022 3:40pm 24 hr oxybutynin chloride 10 mg extended release oral tablet (20 sources) Cholinergic Muscarinic Antagonist Start: 09-29-2019 End: 11-06-2020 take 1 tablet by mouth every twenty-four hours Oxybutynin Chloride 10 mg tablet extended release 24hr Discontinued mg PO September 29, 2019 1:00am November 06, 2020 1:44pm Start: 09-29-2019 End: 11-06-2020 Oxybutynin Chloride Disconti nued MG PO September 29, 2019 1:00am November 06, 2020 1:44pm polyethylene glycol 3350 [id number] mg / potassium chloride 2970 mg / sodium bicarbonate 6740 mg / sodium chloride 5860 mg / sodium sulfate 59163 mg powder for oral solution (14 sources) Osmotic Laxative Start: 10-14-2023 End: 07-20-2024 take 4000 mL by mouth once Peg 3350-Electrolytes 236-22.74-6.74 -5.86 gram recon soln Discontinued 4000 mL PO ONCE 4000 0 October 14, 2023 1:00am July 20, 2024 11:31am until fecal effluent is clear; do not exceed a total volume of 4000 mL Start: 10-14-2023 take 4000 mL by mouth once Peg 3350-Electrolytes Active 4000 ML PO ONCE 4000 October 14, 2023 1:00am until fecal effluent is clear; do not exceed a total volume of 4000 mL PROBIOTIC PRODUCT (8 sources) Start: 07-20-2015 take 1 capsule by mouth once daily PROBIOTIC CAPS One capsule by mouth daily PROBIOTIC PRODUCT [id number] Lauren Zarate RN Start: 07-20-2015 End: 07-23-2015 take 1 capsule by mouth once daily PROBIOTIC CAPS One capsule by mouth daily PROBIOTIC PRODUCT [id number] Lauren Zarate RN PROBIOTIC PRODUCT (8 sources) Start: 07-20-2015 take 1 capsule by mouth once daily PROBIOTIC CAPS One capsule by mouth daily PROBIOTIC PRODUCT [id number] Lauren Zarate RN Start: 07-20-2015 End: 07-23-2015 take 1 capsule by mouth once daily PROBIOTIC CAPS One capsule by mouth daily PROBIOTIC PRODUCT [id number] Lauren Zarate RN raNITIdine 150 mg oral tablet (20 sources) Histamine-2 Receptor Antagonist Start: 07-07-2018 End: 09-29-2019 take 1 tablet by mouth once daily Ranitidine Hcl 150 MG tablet Discontinued 150 mg PO DAILY July 07, 2018 12:00am September 29, 2019 12:11pm Comment on above: [facility] rosuvastatin calcium 20 mg oral tablet (20 sources) HMG-CoA Reductase Inhibitor Start: 01-18-2025 End: 05-16-2025 take 1 tablet by mouth every other day Rosuvastatin 20 mg tablet Discontinued 20 mg PO every other day 45 3 March 27, 2025 3:10pm May 16, 2025 10:39am Start: 05-26-2024 End: 01-18-2025 take 1 tablet by mouth once daily Rosuvastatin 20 mg tablet Discontinued 20 mg PO daily 90 3 September 19, 2024 5:24pm January 18, 2025 11:04am Saw [place] 80 mg ORAL capsule (3 sources) Start: 07-31-2011 take 2 capsules by mouth in the morning Saw [place] 80 mg ORAL capsule Take by mouth. Takes 2 in the am and 2 in the pm. 0 07/31/2011 Active Comment on above: Take by mouth. Takes 2 in the am and 2 in the pm. tamsulosin hydrochloride 0.4 mg oral capsule (20 sources) alpha-Adrenerg ic Elizabeth Start: 10-21-2017 End: 09-29-2019 take 1 capsule by mouth every twenty-four hours at bedtime Tamsulosin 0.4 MG capsule,extended release 24hr Discontinued 0.4 mg PO AT BEDTIME October 21, 2017 1:00am September 29, 2019 12:12pm Start: 10-21-2017 End: 09-29-2019 take 0.4 mg by mouth at bedtime Tamsulosin Discontinue d 0.4 MG PO AT BEDTIME October 21, 2017 1:00am September 29, 2019 12:12pm Comment on above: Take 1 capsule by mo [facility] twice daily. therapeutic multivitamin ORAL tablet (3 sources) Start: 1 take 1 tablet by mouth once daily as needed therapeutic multivitamin ORAL tablet Take by mouth. Takes 1 per day as needed. 0 07/31/2011 Active Comment on above: Take by mouth. Takes 1 per day as needed. 24 hr verapamil hydrochloride 120 mg extended release oral capsule (20 sources) Calcium Channel Elizabeth Start: End: take 1 capsule by mouth every twenty-four hours at bedtime Verapamil 120 mg capsule,ext rel. pellets 24 hr Discontinued 120 mg PO AT BEDTIME November 27, 2023 12:00am January 14, 2024 1:48pm STOP Diltiazem Start: 01-09-2023 End: 11-27-2023 take 1 capsule by mouth once daily Verapamil 120 mg capsule,ext rel. pellets 24 hr Discontinued 120 mg PO DAILY 90 3 May 05, 2023 9:55am November 27, 2023 2:52pm STOP Diltiazem On Hold: Evaluate symptoms 09/23/2023 vitamin b6 100 mg oral tablet (20 sources) Start: 09-30-2018 End: 06-18-2020 take 1 tablet by mouth once daily Pyridoxine (Vitamin B6) 100 mg tablet Discontinued 100 mg PO DAILY September 30, 2018 1:00am June 18, 2020 3:39pm Comment on above: Take 1 tablet by bianca th once daily. CHOLECALCIFEROL (16 sources) Start: 07-20-2015 End: 07-23-2015 take 1 tablet by mouth once daily VITAMIN D 1000 UNIT TABS One tablet by mouth daily CHOLECALCIFEROL [id number] Lauren Zarate RN Start: 07-20-2015 take 1 tablet by bianca th once daily VITAMIN D 1000 UNIT TABS One tablet by mouth daily CHOLECALCIFEROL [id number] Lauren Zarate RN Start: 07-20-2015 End: 07-23-2015 take 1 tablet by mouth once daily VITAMIN D 1000 UNIT TABS One tablet by mouth daily CHOLECALCIFEROL [id number] Lauren Zarate RN Problems Active Problems Problem Classification Problem Date Documented Da te Episodic/Chronic Abdominal hernia (9 sources) Hiatal hernia; Translations: [Diaphragmatic hernia without obstruction or gangrene] Onset: 08-15-2011 07-31-2011 Episodic Acquired foot deformities (20 sources) Foot-drop; Translations: [Foot drop, left foot] 03-16-2025 Episodic Cardiac dysrhythmias (20 sources) Sinus bradycardia; Translations: [Atrial flutter] Onset: 07-20-2015 07-20-2015 Chronic Comment on above: per device check , 07/20/2024 Cardiac dysrhythmias (20 sources) Sinus bradycardia; Translations: [Bradycardia, unspecified] Onset: 05-10-2025 Episodic Complications of surgical procedures or medical care (20 sources) Headache following myelography; Translations: [Other reaction to spinal and lumbar puncture] 11-19-2021 Episodic Conduction disorders (20 sources) Automatic implantable cardiac defibrillator in situ; Translations: [Cardiac pacemaker in situ] Onset: 07-13-2015 Resolved: 03-10-2016 08-02-2015 Chronic Congestive heart failure; nonhypertensive (8 sources) Acute systolic heart failure; Translations: [Acute systolic (congestive) heart failure] Onset: 07-20-2015 07-20-2015 Chronic E Codes: Adverse effects of medical drugs (20 sources) Adverse reaction to drug; Translations: [Adverse effect of unspecified drugs, medicaments and biological substances, initial encounter] 09-26-2020 Episodic Esophageal disorders (3 sources) Esophageal dysmotility; Translations: [Dyskinesia of esophagus] Onset: 08-15-2011 08-15-2011 Chronic Essential hypertension (20 sources) Hypertensive disorder; Translations: [Essential hypertension] Onset: 07-20-2015 07-20-2015 Chronic Genitourinary symptoms and ill-defined conditions (20 sources) Increased frequency of urination; Translations: [Frequency of micturition] 07-09-2018 Episodic Malaise and fatigue (20 sources) Fatigue; Translations: [Other fatigue] 07-22-2021 Episodic Other and ill-defined heart disease (8 sources) Heart disease; Translations: [Other ill-defined heart diseases] Onset: 07-31-2015 07-31-2015 Chronic Other and unspecified benign neoplasm (14 sources) History of polyp of colon; Translations: [Personal history of colonic polyps] 09-23-2023 Episodic Other and unspecified benign neoplasm (2 sources) Personal history of colonic polyps; Translations: [Personal history of colonic polyps] 09-23-2023 Episodic Other circulatory disease (20 sources) Disorder of carotid artery; Translations: [Disorder of arteries and arterioles, unspecified] 02-12-2022 Chronic Comment on above: Carotid duplex 2023:Moderate 50 to 69% stenosis of the right ICA with maximum PSV 126.6/33.4 cm/s in the proximal ICA; ICA/CCA 1.66Mild less than 50% stenosis left ICA Other circulatory disease (3 sources) Disorder of arteries and arterioles, unspecified; Translations: [Unspecified disorders of arteries and arterioles] Chronic Other gastrointestinal disorders (3 sources) Dysphagia; Translations: [Dysphagia, unspecified] 11-10-2014 Episodic Other lower respiratory disease (14 sources) Dyspnea; Translations: [Dyspnea, unspecified] 09-23-2023 Episodic Sandra-; endo-; and myocarditis; cardiomyopathy (except that caused by tuberculosis or sexually transmitted disease) (8 sources) Cardiomyopathy in diseases classified elsewhere; Translations: [Cardiomyopathy in diseases classified elsewhere] Onset: 07-20-2015 07-20-2015 Chronic Peripheral and visceral atherosclerosis (20 sources) Peripheral vascular disease; Translations: [Peripheral vascular disease, unspecified] Chronic Comment on above: LEAS 03/28/2024:Right BISI 0.61 with biphasic waveforms Left BISI 0.70 with biphasic waveforms Residual codes; unclassified (20 sources) Obstructive sleep apnea syndrome; Translations: [Obstructive sleep apnea (adult) (pediatric)] 09-28-2019 Chronic Residual codes; unclassified (2 sources) Obstructive sleep apnea (adult) (pediatric); Translations: [Obstructive sleep apnea (adult)(pediatric)] 10-08-2023 Chronic Residual codes; unclassified (14 sources) Edema of foot; Translations: [Localized edema] 10-12-2024 Episodic Spondylosis; intervertebral disc disorders; other back problems (20 sources) Arthritis of lumbosacral spine; Translations: [Spondylosis without myelopathy or radiculopathy, lumbosacral region] Chronic Spondylosis; intervertebral disc disorders; other back problems (20 sources) Chronic low back pain; Translations: [Lumbago with sciatica, left side] Onset: 02-13-2022 Episodic Viral infection (12 sources) Disease caused by 2019-nCoV; Translations: [COVID-19] 04-15-2024 Episodic Past or Other Problems Problem Classification Problem Date Documented Da te Episodic/Chronic Deficiency and other anemia (1 source) Anemia, unspecified; Translations: [Anemia, unspecified] Onset: 12-14-2024 Episodic Esophageal disorders (3 sources) Esophagitis; Translations: [Esophagitis, unspecified] Onset: 08-15-2011 08-15-2011 Episodic Other connective tissue disease (12 sources) Hand pain; Translations: [Acquired trigger finger] Onset: 06-06-2016 06-06-2016 Episodic Other connective tissue disease (4 sources) Acquired trigger finger; Translations: [Trigger finger, right little finger] Onset: 06-06-2016 06-06-2016 Episodic Other gastrointestinal disorders (3 sources) Dysphagia, unspecified; Translations: [Dysphagia, unspecified] Onset: 08-15-2011 08-15-2011 Episodic Other lower respiratory disease (3 sources) Dyspnea, unspecified; Translations: [Other respiratory abnormalities] Onset: 07-20-2024 09-23-2023 Episodic Other lower respiratory disease (1 source) Other forms of dyspnea; Translations: [Other forms of dyspnea] Onset: 07-20-2024 Episodic Other nervous system disorders (7 sources) [...] Results Test Name Value Interpretation Reference Range Facility Hepatitis A AB, Totalon 09-0 HEPATITIS A,TOT Negative Normal Negative [facility] Comment on above: Result Comment: Comm ent: The HAV total antibody assay detects both IgG and IgM but does not differentiate between them. A negative result suggests susceptibility to infection. A positive result could be due to vaccination, previously resolved infection or active infection. Testing for HAV IgM should be performed if active HAV infection is suspected. [facility] offers profiles that will automatically reflex positive HAV total antibody results to IgM (e.g., panel #[id number] HAV Antibody w/ Rfx). Performed at: [address] [id number] [employer] Editor: Amauri Butt PhD, Phone: [phone] Performed By: #### L 500.3400, M100.651, L501.5200, L3100.0300, L3890.6202, L3890.6006, BTSPAT, L3890.6301, L501.9985 ####[facility] [address] [place], [place], [id number] MRSA/SAID NASAL SCREENon MRSA+SAID SCRN Reason for Exam: Claudia kareem MRSA MRSA Negative S. AUREUS S. aureus Negative Normal [facility] Comment on above: Performed By: #### L 500.3400, M100.651, L501.5200, L3100.0300, L3890.6202, L3890.6006, BTSPAT, L3890.6301, L501.9985 ####[facility] [address] [place], [address] Bilirubin directOrdered By: Johann Andrews on 05-17-2025 Bilirubin.direct [Mass/Vol] 0.18 mg/dL 0.00-0.30 [facility] Bilirubin, totalOrdered By: Johann Andrews on 05-17-2025 Bilirubin [Mass/Vol] 0.42 mg/dL 0.00-1.30 [facility] HIVon 05-17-2025 HIV Non-Reactive Normal Nonreactive [facility] Comment on above: Result Comment: Non- Reactive Reactive Repeatedly reactive samples must be confirmed according to CDC recommended confirmatory algorithms. The subresults for either HIVAG or AHIV can be used as an aid in the selection of the confirmation algorithm for reactive samples. Send out specimens with Reactive results to [facility] for confirmation. Order the HIV antibody detection and differentiation: lc#[id number] Performed By: #### L 500.3400, M100.651, L501.5200, L3100.0300, L3890.6202, L3890.6006, BTSPAT, L3890.6301, L501.9985 ####[facility] [address] [place], [address] Hemoglobin A1con 05-17-2025 HbA1c (Bld) [Mass fraction] 5.9 % High <=5.6 [facility] Comment on above: Result Comment: Norm al < 5.7 % Prediabetic 5.7 - 6.4 % Diabetic >or= 6.5 % Please note range changes. Performed By: #### L 500.3400, M100.651, L501.5200, L3100.0300, L3890.6202, L3890.6006, BTSPAT, L3890.6301, L501.9985 ####[facility] [address] [place], [address] Hemoglobin A1c percentageOrd ered By: Johann Andrews on 05-17-2025 HbA1c (Bld) [Mass fraction] 5.9 % High <5.7 [facility] Comment on above: Normal < 5.7 % Predi abetic 5.7 - 6.4 % Diabetic >or= 6.5 % Please note range changes. Hepatitis B Surface Antibody on 05-17-2025 HEP B Surf Ab Non-Reactive Normal [facility] Comment on above: Result Comment: <8.5 mIU/mL: Non-Reactive 8.5<= x <11.5 mIU/mL: Indeterminate >=11.5 mIU/mL: Reactive Non Reactive: Inconsistent with immunity less than <10 mIU/mL Reactive: Consistent with immunity greater than or equal to 10 mIU/mL Performed By: #### L 500.3400, M100.651, L501.5200, L3100.0300, L3890.6202, L3890.6006, BTSPAT, L3890.6301, L501.9985 ####[facility] [address] [place], [address] Hepatitis C Antibodyon 05-17 Hepatitis C Ab Non-Reactive Normal Nonreactive [facility] Comment on above: Result Comment: Reac tive: Presumptive evidence of antibodies to HCV. Follow CDC recommendations for supplemental testing. Non-Reactive: Antibodies to HCV were not detected; does not exclude the possibility of exposure to HCV Reactive Results are presumptive evidence of antibodies to HCV. Follow CDC recommendations for supplemental testing. Order confirmation testing: HCV Quant by PCR testing - HCVPCR lc#[id number] Non Reactive: < 0.8 Equivocal: >/= 0.8 to < 1.0 Reactive: >/= 1.0 The CDC requires that a reactive/equivocal HCV antibody result be sent out for confirmation. HCV Quant by PCR testing. Performed By: #### L 500.3400, M100.651, L501.5200, L3100.0300, L3890.6202, L3890.6006, BTSPAT, L3890.6301, L501.9985 ####[facility] [address] [place], [address] Laboratory - Chemistry and C hemistry - challengeOrdered By: Johann Andrews on 05-17-2025 AST [Catalytic activity/Vol] 29 U/L <38 [facility] Liver Profileon 05-17-2025 Albumin [Mass/Vol] 4.2 g/dL Normal 3.4-4.8 [facility] Comment on above: Performed By: #### L 500.3400, M100.651, L501.5200, L3100.0300, L3890.6202, L3890.6006, BTSPAT, L3890.6301, L501.9985 ####[facility] [address] [place], [address] ALK PHOS 86 U/L Normal 40-129 [facility] Comment on above: Performed By: #### L 500.3400, M100.651, L501.5200, L3100.0300, L3890.6202, L3890.6006, BTSPAT, L3890.6301, L501.9985 ####[facility] [address] [place], [place], [id number] ALT [Catalytic activity/Vol] 28 U/L Normal <=46 [facility] Comment on above: Performed By: #### L 500.3400, M100.651, L501.5200, L3100.0300, L3890.6202, L3890.6006, BTSPAT, L3890.6301, L501.9985 ####[facility] [address] [place], [address] AST [Catalytic activity/Vol] 29 U/L Normal <=37 [facility] Comment on above: Performed By: #### L 500.3400, M100.651, L501.5200, L3100.0300, L3890.6202, L3890.6006, BTSPAT, L3890.6301, L501.9985 ####[facility] [address] [place], [address] Bilirubin [Mass/Vol] 0.42 mg/dL Normal 0.00-1.30 [facility] Comment on above: Performed By: #### L 500.3400, M100.651, L501.5200, L3100.0300, L3890.6202, L3890.6006, BTSPAT, L3890.6301, L501.9985 ####[facility] [address] [place], [place], [id number]) Bilirubin.direct [Mass/Vol] 0.18 mg/dL Normal 0.00-0.30 [facility] Comment on above: Performed By: #### L 500.3400, M100.651, L501.5200, L3100.0300, L3890.6202, L3890.6006, BTSPAT, L3890.6301, L501.9985 ####[facility] [address] [place], [address] Globulin (S) [Mass/Vol] 2.8 g/dL Normal 2.2-4.2 [facility] Comment on above: Performed By: #### L 500.3400, M100.651, L501.5200, L3100.0300, L3890.6202, L3890.6006, BTSPAT, L3890.6301, L501.9985 ####[facility] [address] [place], [address] T PROT 7.0 g/dL Normal 5.9-8.4 [facility] Comment on above: Performed By: #### L 500.3400, M100.651, L501.5200, L3100.0300, L3890.6202, L3890.6006, BTSPAT, L3890.6301, L501.9985 ####[facility] [address] [place], [address] MRSA screenOrdered By: Sofía Andrews on 05-17-2025 MRSA DNA KATIE+probe Ql (Unsp spec) [facility] Magnesiumon 05-17-2025 Magnesium [Mass/Vol] 2.2 mg/dL Normal 1.5-2.2 [facility] Comment on above: Performed By: #### L 500.3400, M100.651, L501.5200, L3100.0300, L3890.6202, L3890.6006, BTSPAT, L3890.6301, L501.9985 ####[facility] [address] [place], [address] Magnesium measurement (mass/ volume)Ordered By: Johann Andrews on 05-17-2025 Magnesium (Unsp spec) [Mass/Vol] 2.2 mg/dL 1.5-2.2 [facility] No Panel InformationOrdered By: Johann Andrews on 05-17-2025 HIV (1&2) Antibody Non-Reactive Nonreactive [facility] Comment on above: Non-ReactiveReactive Repeatedly reactive samples must be confirmed according to CDC recommended confirmatory algorithms. The subresults for either HIVAG or AHIV can be used as an aid in the selection of the confirmation algorithm for reactive samples.Send out specimens with Reactive results to [facility] for confirmation.Order the HIV antibody detection and differentiation: #[id number] Serum globulin measurementOr dered By: Johann Andrews on 05-17-2025 Globulin (S) [Mass/Vol] 2.8 g/dL 2.2-4.2 [facility] Serum hepatitis B virus surf sudha antibody detectionOrdered By: Johann Andrews on 05-17-2025 HBV surface Ab Ql (S) Non-Reactive [facility] Comment on above: <8.5 mIU/mL: Non-[place] ctive8.5<= x <11.5 mIU/mL: Indeterminate>=11.5 mIU/mL: Reactive Non Reactive: Inconsistent with immunity less than <10 mIU/mL Reactive: Consistent with immunity greater than or equal to 10 mIU/mL Serum or plasma alanine lim otransferase (ALT) measurementOrdered By: Johann Andrews on 05-17-2025 ALT [Catalytic activity/Vol] 28 U/L <47 [facility] Serum or plasma albumin annette urement (mass/volume)Ordered By: Johann Andrews on 05-17-2025 Albumin [Mass/Vol] 4.2 g/dL 3.4-4.8 [facility] Serum or plasma alkaline ha sphatase measurementOrdered By: Johann Andrews on 05-17-2025 ALP [Catalytic activity/Vol] 86 U/L 40-129 [facility] Total proteinOrdered By: Eduardo Andrews on 05-17-2025 Protein [Mass/Vol] 7.0 g/dL 5.9-8.4 [facility] Type AND Screen - PAT ONLYon 05-17-2025 ABO and Rh group Nom (Bld) Blood group B Rh(D) negative Normal [facility] Comment on above: Order Comment: Surge ry Date: 05/23/25Reason for Laboratory Test [id number] FUSION Performed By: #### L 500.3400, M100.651, L501.5200, L3100.0300, L3890.6202, L3890.6006, BTSPAT, L3890.6301, L501.9985 ####[facility] [address] [place], [address] MR/Vu 05-16-2025 MR/VIC [facility] Medical Records Department [address] [place] [address] PAT - Anesthesia 05/16/25 1343 MR#: [id number] Acct: [id number] Name: MOO HOROWITZ Rep #: [id number] : 1945 80 From: Kulwinder العراقي MD PCP: Dr. Paul Mac MD Status:PRE IN Y Race: C Location: [facility] Pre-Assessment Diagnosis/Proposed Procedure Planned Operative Procedure(s): ERAS, 360 Lumbar Fusion L4-5 Anesthesia History Anesthesia History - window cutter: Anesthesia History - window cutter Hx Hospitalization No 05/16/25 10:40 Any Problems With Anesthesia No 05/16/25 10:40 Cholinesterase deficiency No 05/16/25 10:40 You/Your Family Experience No 05/16/25 10:40 fever (hyperthermia) with Relationship Recent Exposure to Contagious No 11/30/23 09:20 Disease Does patient have nerve No 05/16/25 10:40 stimulator Patient instructed to have device shut off --Does patient have Pacemaker or ICD? When Was Last Pacemaker Check 11/30/15 VIA PHONE 06/03/22 13:38 QUESTION #4 FULL TEXT: You/Your Family Experience fever (hyperthermia) with Anesthesia Last Oral Intake Last Oral intake: Last Oral Intake NPO since Meds taken in AM with sips of water? Meds patient instructed to take am of surgery PONV PONV - window cutter: PONV - window cutter Female No 05/16/25 10:40 HX of Motion Sickness No 05/16/25 10:40 HX of N/V After Surgery No 05/16/25 10:40 Non-Smoker Yes 05/16/25 10:40 Duration of Surgery greater Yes 05/16/25 10:40 than 60 minutes Number of Risk Factors 2 05/16/25 10:40 PONV Score Moderate Risk 05/16/25 10:40 Height Weight Height Weight: Anesthesia: Height Weight Height 5 ft 8 in 04/17/25 13:16 Respiratory Assessment Respiratory Assessment - window cutter: Respiratory Tract Infection Hx - window cutter Hx Respiratory Tract Infection No 05/16/25 10:40 STOP Sleep Apnea STOP Sleep Apnea - window cutter: STOP Sleep Apnea - window cutter Hx Hypertension Yes: PER PT, CONTROLLED ON 05/16/25 10:40 MED Hx Sleep Apnea Yes 05/16/25 10:40 CPAP Yes 05/16/25 10:40 BIPAP No 05/16/25 10:40 Do you snore loudly (louder than talking or can be heard Do you often feel tired/ fatigued/ sleepy during daytime? Has anyone observed you stop breathing during sleep? STOP Results Positive 05/16/25 10:40 QUESTION #5 FULL TEXT : Do you snore loudly (louder than talking or can be heard through closed doors)? 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 Specify any problems Hx of Preganancy in last 3 N/A 05/16/25 10:40 Months Nurse Filling Out Transfusion MARCELLA 05/16/25 10:40 Questions: Date: 05/16/25 05/16/25 10:40 Time: 10:42 05/16/25 10:40 Patient unable to answer at this time (ie. confused, unrespo /Reproduction History /Reproductive History - window cutter: /Reproductive Hx- window cutter Hx Now No 05/16/25 10:40 Gestational Age (in weeks): EDC: Hx Hx Para Hx Section SAB No 05/16/25 10:40 [facility] Medical History (Updated 05/16/25 @ 10:53 by Zulma Alcazar) Ambulates with cane High cholesterol Gastric reflux Sleep apnea Hypertension Shortness of breath on exertion Leg cramps History of pacemaker History of rheumatic fever History of atrial fibrillation Wears glasses Excessive bleeding Arthritis Difficulty swallowing Non-smoker CPAP (continuous positive airway pressure) dependence History of echocardiogram History of stress test Cardiology follow-up encounter Non-sustained ventricular tachycardia Left bundle branch block (LBBB) Raynaud disease Essential (primary) hypertension Over weight LORI (obstructive sleep apnea) 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 Normal [facility] Orthopedic Visit Reporton Orthopedic Visit Report [facility] [facility] [address] [place] [address] OFFICE VISIT Date of Service: 05/12/25 MR#: [id number] Acct: [id number] Name: MOO HOROWITZ Rep #: [id number] : 1945 Provider: Dr. Johann Andrews MD Age/Sex: 80/M Location: [facility] [place] Status: Signed Intake Vital Signs 04/17/25 13:16 05/10/25 15:36 Height 5 ft 8 in 5 ft 8 in Intake Visit Reasons: lumbar spine Chief Complaint: pre op lumbar spine Is patient in pain?: Yes (lumbar spine ) Pain scale (1-10): 7 Allergies diltiazem Adverse Reaction (Intermediate, Verified 05/12/25 13:51) Facial flushing and fatigue carvedilol (From Coreg) Adverse Reaction (Verified 05/12/25 13:51) face tingling Medications ???Medication ???Instructions ???Recorded ???Confirmed ???Type alprazolam 0.5 mg tablet 0.5 mg PO QHS anxiety 12/07/15 History acetaminophen 500 mg tablet 1,000 mg PO DAILY 12/25/22 5 History (Tylenol Extra Strength) ipratropium bromide 21 mcg (0.03 2 spray intranasal DAILY 09/23/23 05/12/25 History %) nasal spray metoprolol succinate 50 mg 50 mg PO BID #60 tabs 01/18/25 Rx tablet,extended release 24 hr apixaban 5 mg tablet (Eliquis) 5 mg PO BID #60 tabs 03/27/2504/15 Rx rosuvastatin 20 mg tablet 20 mg PO Q OTHER DAY #45 tabs 03/1405/12/25 Rx cyclobenzaprine 10 mg tablet 10 mg PO TID PRN muscle spasm #30 04/26/25 05/12/25 Rx tabs losartan 25 mg tablet 25 mg PO .COMPLEX 05/10/25 5 History losartan 50 mg tablet 50 mg PO .COMPLEX 05/10/25 5 History meloxicam 15 mg tablet 15 mg PO .every other day 05/10/25 05/12/25 History tramadol 50 mg tablet 50 mg PO TID PRN 05/10/25 05/12/25 History Have you fallen in the past year?: Yes [facility] Medical History Wears glasses Excessive bleeding Arthritis Difficulty swallowing Non-smoker CPAP (continuous positive airway pressure) dependence History of echocardiogram History of stress test Cardiology follow-up encounter Non-sustained ventricular tachycardia Left bundle branch block (LBBB) Raynaud disease Essential (primary) hypertension Over weight LORI (obstructive sleep apnea) 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 Sinus bradycardia Mobitz type II atrioventricular block Cardiomyopathy in disease classified elsewhere Surgical History History of appendectomy History of colonoscopy Biventricular cardiac pacemaker in situ (07/13/15) History of herniorrhaphy History of carpal tunnel surgery of right wrist History of esophagogastroduodenoscopy (EGD) Family History Mother CAD (coronary artery disease) Father CAD (coronary artery disease) Brother Polycystic kidney disease Social History Smoking Status: Never smoker alcohol intake: never substance use type: does not use caffeine: Yes Type: carbonated beverages and tea additional social history: Denies daily use of aspirin or ibuprofen. HPI lumbar spine Details: This documentation accurately reflects the service provided and the decisions made by me, Dr. Johann Andrews MD 05/12/25 4961. Part of today???s visit was documented by [ ], acting as scribe. MOO HOROWITZ is a 80 year old M here today for a post operative visit for an L4-5 anterior posterior fusion scheduled on 05-23-25. The patient is a 80-year-old male presenting with lumbar disc herniation and associated symptoms. He reports left-sided weakness and pain radiating from the back to the toes, particularly affecting the big toe, present for about two and a half months. The pain began after lifting a suitcase from a van post-vacation and has been severe since. 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 He denies previous back surgeries but has had hernia repair and appendectomy. He has been using a cane since symptom onset and reports no history of diabetes or smoking. 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 - Musculoskeletal: Reports left-sided weakness and pain radiating from the back to the toes, particularly affecting the big toe. - Neurological: Reports foot drop and left-sided weakness. - Cardiovascular: Denies history of diabetes or smoking. Attestation: Documentation on this patient encounter was supported using ambient scribe technology/ voice AI technology. The patient consented to recording for the purpose of documenting the encounter. Provider reviewed content of the generated note prior to signature. 04/17/25: MOO HOROWITZ is a 80 year (more content not included)... Normal [facility] [place] Absolute lymphocyte countOrd ered By: Paul Mac on 05-11-2025 Lymphocytes Auto (Unsp spec) [#/Vol] 1.46 10*3/uL 0.83-4.51 [facility] [place] Absolute neutrophil countOrd ered By: Paul Mac on 05-11-2025 Neutrophils (Bld) [#/Vol] 5.1 10*3/uL 2.0-7.7 [facility] [place] Anion gap in Serum or Plasma Ordered By: Paul Mac on 05-11-2025 Anion gap [Moles/Vol] 10 mmol/L 5-15 [facility] Automated lymphocyte count a s percentage of total leukocytesOrdered By: Paul Mac on 05-11-2025 Lymphocytes/100 WBC Auto (Unsp spec) 18.8 % Low 19-41 [facility] [place] BUN/creatinine ratioOrdered By: Paul Mac on 05-11-2025 Urea nitrogen/Creatinine [Mass ratio] 22.8 mg/mg High 10-20 [facility] [place] Basic Metabolic Profile (BMP )on 05-11-2025 BUN/CRE 22.8 RATIO High 10-20 [facility] [place] Comment on above: Performed By: #### L 500.2500, L100.0100 #### [facility] [place] [facility] [address] [place], [address] Calcium [Mass/Vol] 9.5 mg/dL Normal 7.6-11.0 [facility] Comment on above: Performed By: #### L 500.2500, L100.0100 #### [facility] [place] [facility] [address] [place], [address] Chloride [Moles/Vol] 104 mmol/L Normal 98-108 [facility] Comment on above: Performed By: #### L 500.2500, L100.0100 #### [facility] [place] [facility] [address] [place], [address] CO2 [Moles/Vol] 25.6 mmol/L Normal 21.0-32.0 [facility] [place] Comment on above: Performed By: #### L 500.2500, L100.0100 #### [facility] [place] [facility] [address] [place], [address] Creatinine [Mass/Vol] 1.16 mg/dL Normal 0.70-1.20 [facility] Comment on above: Performed By: #### L 500.2500, L100.0100 #### [facility] [place] [facility] [address] [place], [address] GAP 10 Normal 5-15 [facility] [place] Comment on above: Performed By: #### L 500.2500, L100.0100 #### [facility] [place] [facility] [address] [place], [address] GFR/1.73 sq M.predicted among non-blacks MDRD (S/P/Bld) [Vol rate/Area] 64 mL/min/{1.73_m2} Normal >60 [facility] [place] Comment on above: Result Comment: mL/m in/1.73m2 CKD-EPI Creatinine Equation (2020) Performed By: #### L 500.2500, L100.0100 #### [facility] [place] [facility] [address] [place], [address] Glucose [Mass/Vol] 83 mg/dL Normal 70-99 [facility] Comment on above: Performed By: #### L 500.2500, L100.0100 #### [facility] [place] [facility] [address] [place], [address] Potassium [Moles/Vol] 5.1 mmol/L Normal 3.3-5.1 [facility] Comment on above: Performed By: #### L 500.2500, L100.0100 #### [facility] [place] [facility] [address] [place], [address] Sodium [Moles/Vol] 139 mmol/L Normal 133-145 [facility] Comment on above: Performed By: #### L 500.2500, L100.0100 #### [facility] [place] [facility] [address] [place], [address] Urea nitrogen [Mass/Vol] 27 mg/dL High 4-19 [facility] [place] Comment on above: Performed By: #### L 500.2500, L100.0100 #### [facility] [place] [facility] [address] [place], [address] Basophil percentageOrdered B y: Paul Mac on 05-11-2025 Basophils/100 WBC (Bld) 0.6 % 0-1 [facility] [place] CBC W/Diff, Automatedon 04-15 Absolute Lymph 1.46 X10 3/uL Normal 0.83-4.51 [facility] [place] Comment on above: Performed By: #### L 500.2500, L100.0100 #### [facility] [place] [facility] [address] [place], [address] Absolute Neut 5.1 X10 3/uL Normal 2.0-7.7 [facility] [place] Comment on above: Performed By: #### L 500.2500, L100.0100 #### [facility] [place] [facility] [address] [place], [address] Basophils/100 WBC (Bld) 0.6 % Normal 0-1 [facility] [place] Comment on above: Performed By: #### L 500.2500, L100.0100 #### [facility] [place] [facility] [address] [place], [address] Eosinophils/100 WBC (Bld) 2.2 % Normal 0-5 [facility] [place] Comment on above: Performed By: #### L 500.2500, L100.0100 #### [facility] [place] [facility] [address] [place], [address] Erythrocyte distribution width (RBC) [Ratio] 13.5 % Normal 11.6-14.6 [facility] [place] Comment on above: Performed By: #### L 500.2500, L100.0100 #### [facility] [place] [facility] [address] [place], [address] Hematocrit (Bld) [Volume fraction] 40.2 % Normal 40-54 [facility] [place] Comment on above: Performed By: #### L 500.2500, L100.0100 #### [facility] [place] [facility] [address] [place], [address] Hemoglobin (Bld) [Mass/Vol] 13.0 g/dL Normal 13.0-16.5 [facility] [place] Comment on above: Performed By: #### L 500.2500, L100.0100 #### [facility] [place] [facility] [address] [place], [address] IG% 0.500 Normal 0.0-0.9 [facility] [place] Comment on above: Result Comment: IG% - Immature Granulocytes (promyelocytes, myelocytes and metamyelocytes) > 1% indicates that a LEFT SHIFT is Present. Performed By: #### L 500.2500, L100.0100 #### [facility] [place] [facility] [address] [place], [address] Lymphocytes/100 WBC (Bld) 18.8 % Low 19-41 [facility] [place] Comment on above: Performed By: #### L 500.2500, L100.0100 #### [facility] [place] [facility] [address] [place], [address] MCH (RBC) [Entitic mass] 31.6 pg Normal 27.0-32.0 [facility] [place] Comment on above: Performed By: #### L 500.2500, L100.0100 #### [facility] [place] [facility] [address] [place], [address] MCHC (RBC) [Mass/Vol] 32.3 g/dL Normal 32-36 [facility] Comment on above: Performed By: #### L 500.2500, L100.0100 #### [facility] [place] [facility] [address] [place], [address] MCV (RBC) [Entitic vol] 97.6 fL High 80-94 [facility] [place] Comment on above: Performed By: #### L 500.2500, L100.0100 #### [facility] [place] [facility] [address] [place], [address] Monocytes/100 WBC (Bld) 11.8 % High 0-10 [facility] [place] Comment on above: Performed By: #### L 500.2500, L100.0100 #### [facility] [place] [facility] [address] [place], [address] Neutrophils/100 WBC (Bld) 66.1 % Normal 47-70 [facility] [place] Comment on above: Performed By: #### L 500.2500, L100.0100 #### [facility] [place] [facility] [address] [place], [address] Nucleated RBC (Bld) [#/Vol] 0 10*3/uL Normal 0-5 [facility] [place] Comment on above: Performed By: #### L 500.2500, L100.0100 #### [facility] [place] [facility] [address] [place], [address] Platelet mean volume (Bld) [Entitic vol] 11.4 fL Normal 6.2-12.0 [facility] [place] Comment on above: Performed By: #### L 500.2500, L100.0100 #### [facility] [place] [facility] [address] [place], [address] Platelets (Bld) [#/Vol] 217 10*3/uL Normal 150-450 [facility] [place] Comment on above: Performed By: #### L 500.2500, L100.0100 #### [facility] [place] [facility] [address] [place], [address] RBC (Bld) [#/Vol] 4.12 10*6/uL Low 4.6-6.2 [facility] Comment on above: Performed By: #### L 500.2500, L100.0100 #### [facility] [place] [facility] [address] [place], [address] RDW SD 48.8 fl High 35.1-43.9 [facility] [place] Comment on above: Performed By: #### L 500.2500, L100.0100 #### [facility] [place] [facility] [address] [place], [address] WBC (Bld) [#/Vol] 7.8 10*3/uL Normal 4.4-11.0 [facility] Comment on above: Performed By: #### L 500.2500, L100.0100 #### [facility] [place] [facility] [address] [place], [address] Carbon dioxide, total [Moles /volume] in Central venous bloodOrdered By: Paul Mac on 05-11-2025 CO2 [Moles/Vol] 25.6 mmol/L 21.0-32.0 [facility] [place] Chloride assayOrdered By: Erica Mac on 05-11-2025 Chloride [Moles/Vol] 104 mmol/L 98-108 [facility] Eosinophil percentageOrdered By: Paul Mac on 05-11-2025 Eosinophils/100 WBC (Bld) 2.2 % 0-5 [facility] [place] Erythrocyte distribution wid th ratioOrdered By: Paul Mac on 05-11-2025 Erythrocyte distribution width (RBC) [Ratio] 13.5 % 11.6-14.6 [facility] [place] Erythrocyte distribution wid th standard deviationOrdered By: Paul Mac on 05-11-2025 Erythrocyte distribution width (RBC) [Ratio] 48.8 fl High 35.1-43.9 [facility] [place] Glomerular filtration rate ( GFR) estimation/1.73 sq m using serum, plasma, or whole bOrdered By: Paul Mac on 05-11-2025 GFR/1.73 sq M.predicted among non-blacks MDRD (S/P/Bld) [Vol rate/Area] 64 mL/min/{1.73_m2} >60 [facility] [place] Comment on above: mL/min/1.73m2 CKD-EP I Creatinine Equation (2020) Hematocrit Auto (Bld) [Volum e fraction]Ordered By: Paul Mac on 05-11-2025 Hematocrit (Bld) [Volume fraction] 40.2 % 40-54 [facility] [place] Hemoglobin measurementOrdere d By: Paul Mac on 05-11-2025 Hemoglobin (Bld) [Mass/Vol] 13.0 g/dL 13.0-16.5 [facility] [place] Immature granulocytes/100 WB C Auto (Bld)Ordered By: Paul Mac on 05-11-2025 Immature granulocytes/100 WBC (Bld) 0.500 % 0.0-0.9 [facility] [place] Comment on above: IG% - Immature Granu locytes (promyelocytes, myelocytes and metamyelocytes) > 1% indicates that a LEFT SHIFT is Present. MCV (mean corpuscular volume ) determinationOrdered By: Paul Mac on 05-11-2025 MCV (RBC) [Entitic vol] 97.6 fL High 80-94 [facility] [place] Mean corpuscular hemoglobin (MCH) determinationOrdered By: Paul Mac on 05-11-2025 MCH (RBC) [Entitic mass] 31.6 pg 27.0-32.0 [facility] [place] Mean corpuscular hemoglobin concentration (MCHC) determinationOrdered By: Paul Mac on 05-11-2025 MCHC (RBC) [Mass/Vol] 32.3 g/dL 32-36 [facility] Mean platelet volume determi nationOrdered By: Paul Mac on 05-11-2025 Platelet mean volume (Bld) [Entitic vol] 11.4 fL 6.2-12.0 [facility] [place] Monocyte percentageOrdered B y: Paul Mac on 05-11-2025 Monocytes/100 WBC (Bld) 11.8 % High 0-10 [facility] [place] Neutrophil percentageOrdered By: Paul Mac on 05-11-2025 Neutrophils/100 WBC (Bld) 66.1 % 47-70 [facility] [place] Nucleated red blood cell per centageOrdered By: Paul Mac on 05-11-2025 Nucleated RBC/100 WBC (Bld) [Ratio] 0 % 0-5 [facility] [place] Platelet countOrdered By: Erica Mac on 05-11-2025 Platelets (Bld) [#/Vol] 217 10*3/uL 150-450 [facility] [place] Potassium measurement (mass/ volume)Ordered By: Paul Mac on 05-11-2025 Potassium (Unsp spec) [Mass/Vol] 5.1 mmol/L 3.3-5.1 [facility] [place] RBC Auto (Bld) [#/Vol]Ordere d By: Paul Mac on 05-11-2025 RBC (Bld) [#/Vol] 4.12 10*6/uL Low 4.6-6.2 [facility] Serum creatinine measurement (mass/volume)Ordered By: Paul Mac on 05-11-2025 Creatinine [Mass/Vol] 1.16 mg/dL 0.70-1.20 [facility] Serum glucose measurement (m ass/volume)Ordered By: Paul Mac on 05-11-2025 Glucose [Mass/Vol] 83 mg/dL 70-99 [facility] Serum or plasma calcium annette urement (mass/volume)Ordered By: Paul Mac on 05-11-2025 Calcium [Mass/Vol] 9.5 mg/dL 7.6-11.0 [facility] Serum or plasma urea nitroge n measurement (mass/volume)Ordered By: Paul Mac on 05-11-2025 Urea nitrogen [Mass/Vol] 27 mg/dL High 4-19 [facility] [place] Sodium levelOrdered By: Paul Mac on 05-11-2025 Sodium [Moles/Vol] 139 mmol/L 133-145 [facility] White blood cell (WBC) count Ordered By: Paul Mac on 05-11-2025 WBC (Bld) [#/Vol] 7.8 10*3/uL 4.4-11.0 [facility] Cardiology Visit Reporton Cardiology Visit Report [facility] [address] [place] [address] OFFICE VISIT Date of Service: 05/10/25 MR#: [id number] Acct: [id number] Name: MOO HOROWITZ Rep #: [id number] : 1945 Provider: HONEY bey Age/Sex: 80/M Location: [facility] [place] Status: Signed HPI HPI History of Present Illness Details: Patient is a pleasant 80-year-old white male that comes today for monitoring of his cardiovascular status. Patient has a history of paroxysmal atrial fibs/flutter. He has a BiV pacing device in place this primarily works is atrially sensed BiV paced at 96% of the time. His device check today shows he has 9 years of battery life he did have some atrial flutter on December 13, and . And accounted for about 0.3%. The patient back in November had 32 atrial high rate episodes detected the longest lasted 2 hours and a half. This is about 0.4% of his Coumadin of atrial arrhythmia burden. He had 4 ventricular high rate episodes detected 1 was at 200 bpm for 6 seconds. The patient is asymptomatic he has not had any syncope near syncope he is aerobically active. The patient has a history of hypertension that is well-controlled on his current medical therapy. He also has a history of hyperlipidemia that is well-controlled on rosuvastatin 20 mg daily. He was talking about stopping it because of something he read in a magazine. The patient's permanent pacemaker is a BiV pacer implanted in [place] while he was visiting out there in June 2015. This is managed through the [place] [facility]. The patient carries a history of mild LV dysfunction of 40% EF secondary to tachycardia back in 2014. Repeat echo in 2021 showed his EF was up to 55% he is 96% BiV paced. He denies chest, arm, jaw, or neck discomfort. He denies palpitations. He denies bilateral lower extremity edema. He denies claudication. He denies shortness of breath with activity, shortness of breath at rest, orthopnea, or PND. He denies chronic cough. He denies significant, sudden weight gain. He denies lightheadedness, dizziness, near-syncope, or syncope. He denies blood in urine, blood in stool, or epistaxis. He denies fever with chills. He denies myalgia. He denies fatigue. He states balance issues and challenges walking up steps due to back pain. He remains active daily without exertional symptoms. Intake Vital Signs 04/17/25 13:16 05/10/25 15:31 05/10/25 15:36 Height 5 ft 8 in 5 ft 8 in Weight: 190 lb 191 lb BMI 28.8 BP 101/64 Blood Pressure Location Rt brachial Position Sitting Respiration 16 Pulse 88 Pulse Source Monitor Intake Visit Reasons: Surgical Clearance/Sees Estefanía @ [employer] Required: No Accompanied by: Self Is patient in pain?: No Allergies diltiazem Adverse Reaction (Intermediate, Verified 05/10/25 15:32) Facial flushing and fatigue carvedilol (From Coreg) Adverse Reaction (Verified 05/10/25 15:32) face tingling Medications ???Medication ???Instructions ???Recorded ???Confirmed ???Type alprazolam 0.5 mg tablet 0.5 mg PO QHS anxiety 12/07/15 History acetaminophen 500 mg tablet 1,000 mg PO DAILY 12/25/22 5 History (Tylenol Extra Strength) ipratropium bromide 21 mcg (0.03 2 spray intranasal DAILY 09/23/23 05/10/25 History %) nasal spray metoprolol succinate 50 mg 50 mg PO BID #60 tabs 01/18/25 Rx tablet,extended release 24 hr apixaban 5 mg tablet (Eliquis) 5 mg PO BID #60 tabs 03/27/25 0804/07 Rx rosuvastatin 20 mg tablet 20 mg PO Q OTHER DAY #45 tabs 03/1405/10/25 Rx cyclobenzaprine 10 mg tablet 10 mg PO TID PRN muscle spasm #30 04/26/25 05/10/25 Rx tabs losartan 25 mg tablet 25 mg PO .COMPLEX 05/10/25 5 History losartan 50 mg tablet 50 mg PO .COMPLEX 05/10/25 5 History meloxicam 15 mg tablet 15 mg PO .every other day 05/10/25 05/10/25 History tramadol 50 mg tablet 50 mg PO TID PRN 05/10/25 05/10/25 History Ejection fraction %: 55 Have you fallen in the past year?: Yes (due to back pain- just causes him to go down) PFSH Medical History Wears glasses Excessive bleeding Arthritis Difficulty swallowing Non-smoker CPAP (continuous positive airway pressure) dependence History of echocardiogram History of stress test Cardiology follow-up encounter Non-sustained ventricular tachycardia Left bundle branch block (LBBB) Raynaud disease Essential (primary) hypertension Over weight LORI (obstructive sleep apnea) 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 Normal [facility] [place] Pacemaker Checkon 05-10-2025 Pacemaker Check [facility] [address] [place] [address] Pacemaker Check Date of Service: 05/10/25 1643 MR#: [id number] Acct: [id number] Name: MOO HOROWITZ Rep #: [id number] : 1945 From: Sharon Gunn Age/Sex: 80/M Location: [facility] [place] Status: Signed Billing Codes PM Device Codes: 62094 PM Dev Prog Eval, Multi Assessment and Plan Assessment and Plan (1) Biventricular cardiac pacemaker in situ: Status: Chronic (2) Left bundle branch block (LBBB): Status: Chronic (3) Mobitz type II atrioventricular block: Status: Chronic (4) Atrial flutter: Status: Chronic Qualifiers: Atrial flutter type: unspecified Qualified Code(s): I48.92 - Unspecified atrial flutter 05/10/25 1644 Date Sharon Damonigner Signature: Date (if applicable) CC: Normal [facility] [place] Orthopedic Visit Reporton Orthopedic Visit Report [facility] [address] [place] [address] OFFICE VISIT Date of Service: 04/17/25 MR#: [id number] Acct: [id number] Name: MOO HOROWITZ Rep #: [id number] : 1945 Provider: ERICA Carvalho Age/Sex: 80/M Location: [facility] [place] Status: Signed Intake Vital Signs 01/18/25 10:58 04/12/25 13:25 04/17/25 13:16 Height 5 ft 8 in 5 ft 8 in 5 ft 8 in Weight: 190 lb BMI 28.8 Intake Visit Reasons: LUMBAR SPINE Chief Complaint: CT review Accompanied by: Self Is patient in pain?: Yes Pain scale (1-10): 7 Allergies diltiazem Adverse Reaction (Intermediate, Verified 04/17/25 13:22) Facial flushing and fatigue carvedilol (From Coreg) Adverse Reaction (Verified 04/17/25 13:22) face tingling Medications ???Medication ???Instructions ???Recorded ???Confirmed ???Type alprazolam 0.5 mg tablet 0.5 mg PO QHS anxiety 12/06/01/06 History meloxicam 15 mg tablet 15 mg PO DAILY 12/25/21 04/17/25 H istory acetaminophen 500 mg tablet 1,000 mg PO DAILY 12/25/22 5 History (Tylenol Extra Strength) ipratropium bromide 21 mcg (0.03 2 spray intranasal DAILY 09/23/23 04/17/25 History %) nasal spray losartan 25 mg tablet 25 mg PO .COMPLEX 01/18/25 5 History losartan 50 mg tablet 50 mg PO .COMPLEX 01/18/25 5 History metoprolol succinate 50 mg 50 mg PO BID #60 tabs 01/18/2501/06 Rx tablet,extended release 24 hr cyclobenzaprine 10 mg tablet 10 mg PO Q8 PRN low back pain 12/0604/17/25 History tramadol 50 mg tablet 50 mg PO TID 03/16/25 04/17/25 His tory apixaban 5 mg tablet (Eliquis) 5 mg PO BID #60 tabs 03/27/2501/06 Rx rosuvastatin 20 mg tablet 20 mg PO Q OTHER DAY #45 tabs 03/1404/17/25 Rx Have you fallen in the past year?: No PFSH Medical History Wears glasses Excessive bleeding Arthritis Difficulty swallowing Non-smoker CPAP (continuous positive airway pressure) dependence History of echocardiogram History of stress test Cardiology follow-up encounter Non-sustained ventricular tachycardia Left bundle branch block (LBBB) Raynaud disease Essential (primary) hypertension Over weight LORI (obstructive sleep apnea) 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 Sinus bradycardia Mobitz type II atrioventricular block Cardiomyopathy in disease classified elsewhere Surgical History History of appendectomy History of colonoscopy Biventricular cardiac pacemaker in situ (07/13/15) History of herniorrhaphy History of carpal tunnel surgery of right wrist History of esophagogastroduodenoscopy (EGD) Family History Mother CAD (coronary artery disease) Father CAD (coronary artery disease) Brother Polycystic kidney disease Social History Smoking Status: Never smoker alcohol intake: never substance use type: does not use caffeine: Yes Type: carbonated beverages and tea additional social history: Denies daily use of aspirin or ibuprofen. HPI LUMBAR SPINE Details: This documentation accurately reflects the service provided and the decisions made by me, ERICA Carvalho 04/17/25 1316. Part of today???s visit was documented by Igor West [place], acting as scribe. MOO HOROWITZ is a 80 year old M here today for ct review. Patient had a CT scan on 04/12/2025. He would like to go over the CT results to see what the next step is. Patient had an injection in his lower back a few years ago. He saw Dr. Stafford at pain management. Patient states that the injection he had gotten didn't help and lasted for about 2 days. He hasn't had any recent injections. Patient hasn't really done any physical therapy. He thinks Dr. Sifuentes had him do a couple sessions, but he states that the physical therapy didn't help with the pain. Patient states he think he did his stretches at home. HPI from 03/16/25: MOO HOROWITZ is a 80 year old M here today for his lumbar spine. He states that about 3 weeks ago he had a flare up of sciatica in his left leg. He denies having pain in the leg but has been having weakness which is new to him. He states that he feels that his left leg function is not as good as his right leg. When he lifts his left foot towards him it doesn't come up very far compared to the right side. He does have pain in the left side of his lower back that he has had for many years. he did bring a disc today with imaging on it from [facility]. Denies numbness, tingling or other associated symptoms. He states that the left leg kind of feels heavy compared to the right side. (more content not included)... Normal [facility] Activated partial thrombopla stin time (aPTT) in platelet poor plasma by coagulation aOrdered By: Ivy Kern on 04-12-2025 aPTT Coag (PPP) [Time] 25.1 s 24.1-36.2 [facility] CBC-Complete Blood Cnt No Veronica bowen 04-12-2025 Erythrocyte distribution width (RBC) [Ratio] 13.4 % Normal 11.6-14.6 [facility] Comment on above: Performed By: #### L 300.4310, L100.0500, L300.3900 ####[facility] [address] [place], [address] Hematocrit (Bld) [Volume fraction] 41.9 % Normal 40-54 [facility] Comment on above: Performed By: #### L 300.4310, L100.0500, L300.3900 ####[facility] [address] [place], [address] Hemoglobin (Bld) [Mass/Vol] 13.6 g/dL Normal 13.0-16.5 [facility] Comment on above: Performed By: #### L 300.4310, L100.0500, L300.3900 ####[facility] [address] [place], [address] MCH (RBC) [Entitic mass] 31.9 pg Normal 27.0-32.0 [facility] Comment on above: Performed By: #### L 300.4310, L100.0500, L300.3900 ####[facility] [address] [place], [address] MCHC (RBC) [Mass/Vol] 32.5 g/dL Normal 32-36 [facility] Comment on above: Performed By: #### L 300.4310, L100.0500, L300.3900 ####[facility] [address] [place], [address] MCV (RBC) [Entitic vol] 98.1 fL High 80-94 [facility] Comment on above: Performed By: #### L 300.4310, L100.0500, L300.3900 ####[facility] [address] [place], [address] Platelet mean volume (Bld) [Entitic vol] 10.8 fL Normal 6.2-12.0 [facility] Comment on above: Performed By: #### L 300.4310, L100.0500, L300.3900 ####[facility] [address] [place], [address] Platelets (Bld) [#/Vol] 224 10*3/uL Normal 150-450 [facility] Comment on above: Performed By: #### L 300.4310, L100.0500, L300.3900 ####[facility] [address] [place], [address] RBC (Bld) [#/Vol] 4.27 10*6/uL Low 4.6-6.2 [facility] Comment on above: Performed By: #### L 300.4310, L100.0500, L300.3900 ####[facility] [address] [place], [address] RDW SD 48.6 fl High 35.1-43.9 [facility] Comment on above: Performed By: #### L 300.4310, L100.0500, L300.3900 ####[facility] [address] [place], [address] WBC (Bld) [#/Vol] 6.4 10*3/uL Normal 4.4-11.0 [facility] Comment on above: Performed By: #### L 300.4310, L100.0500, L300.3900 ####[facility] [address] [place], [address] Erythrocyte distribution wid th ratioOrdered By: Ivy Kern on 04-12-2025 Erythrocyte distribution width (RBC) [Ratio] 13.4 % 11.6-14.6 [facility] Erythrocyte distribution wid th standard deviationOrdered By: Ivy Concha on 04-12-2025 Erythrocyte distribution width (RBC) [Ratio] 48.6 fl High 35.1-43.9 [facility] Hematocrit Auto (Bld) [Volum e fraction]Ordered By: Ivyjustin Kern on 04-12-2025 Hematocrit (Bld) [Volume fraction] 41.9 % 40-54 [facility] Hemoglobin measurementOrdere d By: Ivy Concha on 04-12-2025 Hemoglobin (Bld) [Mass/Vol] 13.6 g/dL 13.0-16.5 [facility] International normalized rat io (INR) calculationOrdered By: Uk Healthcareyeison on 04-12-2025 INR Coag (Bld) [Relative time] 1.0 {INR} [facility] Lumbar Myelogramon Lumbar Myelogram [facility] Imaging Services [address] [place] [id number] Lumbar Myelogram MR#: [id number] Acct: [id number] Name: MOO HOROWITZ Rep #: [id number] : 1945 M 80 From: Jose Galvin PCP: Dr. Paul Mac MD Status: REG CLI Study: Lumbar Myelogram Date of Exam: 04/12/25 Exam# [id number] Ordering Dr: Shalom Barraza MD PROCEDURE: LUMBAR MYELOGRAM 04/12/2025 REASON FOR EXAM: LOW BACK PAIN TECHNIQUE: LUMBAR MYELOGRAM COMPARISON: Lumbar spine study of 06/09/2022. FINDINGS: Postsurgical changes of the pelvis are again noted. Degenerative changes of the lumbar spine are again seen, with disc space narrowing throughout the entire lumbar spine. Procedure: Following informed consent, and using standard sterile technique, a fluoroscopically guided lumbar myelogram was performed. 2% lidocaine local anesthesia was followed by placement of a 22 gauge 3.5 in spinal needle into the spinal canal at the L2 level via a left posterior oblique approach. Approximately 17 mL of Isovue 200-M contrast material was then instilled, confirmed with fluoroscopic guidance. Fluoroscopy time: 98 seconds. Dose: 178.6 mGy-cm. RAD/Lumbar Myelogram IMPRESSION: Postcontrast images show moderate spinal canal narrowing of the L4-L5 level and mild spinal canal narrowing of the L3-L4 level. Reading Location: [place] [address] CC: Dr. Paul Mac MD; Dr. Shalom Barraza MD Cloth Booker: Signed Normal [facility] MCV (mean corpuscular volume ) determinationOrdered By: Ivy Kern on 04-12-2025 MCV (RBC) [Entitic vol] 98.1 fL High 80-94 [facility] Mean corpuscular hemoglobin (MCH) determinationOrdered By: Ivyjustin Kern on 04-12-2025 MCH (RBC) [Entitic mass] 31.9 pg 27.0-32.0 [facility] Mean corpuscular hemoglobin concentration (MCHC) determinationOrdered By: Ivyjustin Kern on 04-12-2025 MCHC (RBC) [Mass/Vol] 32.5 g/dL 32-36 [facility] Mean platelet volume determi nationOrdered By: Ivy Kern on 04-12-2025 Platelet mean volume (Bld) [Entitic vol] 10.8 fL 6.2-12.0 [facility] Partial Thromboplast Timeon 04-12-2025 aPTT Coag (Bld) [Time] 25.1 s Normal 24.1-36.2 [facility] Comment on above: Performed By: #### L 300.4310, L100.0500, L300.3900 ####[facility] [address] [place], [place], [address] Platelet countOrdered By: Herrera Kern on 04-12-2025 Platelets (Bld) [#/Vol] 224 10*3/uL 150-450 [facility] Prothrombin Time w/INRon INR Coag (PPP) [Relative time] 1.0 {INR} Normal [facility] Comment on above: Performed By: #### L 300.4310, L100.0500, L300.3900 ####[facility] [address] [place], [place], [address] PT Coag (PPP) [Time] 12.9 s Normal 11.7-14.9 [facility] Comment on above: Performed By: #### L 300.4310, L100.0500, L300.3900 ####[facility] [address] [place], [place], [address] Prothrombin timeOrdered By: Ivy Kern on 04-12-2025 PT Coag (PPP) [Time] 12.9 s 11.7-14.9 [facility] RBC Auto (Bld) [#/Vol]Ordere d By: Ivy Kern on 04-12-2025 RBC (Bld) [#/Vol] 4.27 10*6/uL Low 4.6-6.2 [facility] Spine Lumbar WITH Contraston 04-12-2025 Spine Lumbar WITH Contrast [facility] Imaging Services [address] [place], [place] [address] Spine Lumbar WITH Contrast MR#: [id number] Acct: [id number] Name: MOO HOROWITZ Rep #: [id number] : 1945 M 80 From: Ash Sanders MD PCP: Dr. Paul Mac MD Status: REG CLI Study: Spine Lumbar WITH Contrast Date of Exam: 04/12 Exam# [id number] Ordering Dr: Shalom Barraza MD PROCEDURE: SPINE LUMBAR WITH CONTRAST 04/12/2025 REASON FOR EXAM: LOW BACK PAIN TECHNIQUE: SPINE LUMBAR WITH CONTRAST CONTRAST: Approximately 17 mL of Isovue 200-M contrast material was then instilled, confirmed with fluoroscopic guidance. See dedicated fluoroscopic procedural report for detail performed on the same day. One or more dose reduction techniques were used (e.g., Automated exposure control, adjustment of the mA and/or kV according to patient size, use of iterative reconstruction technique). RADIATION DOSE SUMMARY: CTDlvol: 27 mGy DLP: 991 mGycm COMPARISON: June 09, 2022, June 20, 2022, April 12, 2025 FINDINGS: Vertebrae: Bone mineralization is decreased. Mild anterior wedging of T12 and L1 vertebral bodies with a proximally 25% height loss. Marginal endplate spurs are seen throughout the lumbar spine with bridging osteophytes anteriorly at L1/2, L2/3, L3/4. Large anterior osteophytes at L4/5. Alignment: Mild straightening of the lumbar lordosis. Conus medullaris: Terminates at T12/L1. Appearance is unremarkable. There is no clumping of nerve roots to suggest arachnoiditis. T12-L1: Moderate loss of disc height. Minimal, diffuse disc bulge. No central stenosis. Borderline bilateral exit foraminal narrowing. L1-2: Mild loss of disc height. Mild, diffuse disc bulge. No central stenosis. Borderline bilateral exit foraminal narrowing. L2-3: Mild loss of disc height. Mild, diffuse disc bulge. No central stenosis. Borderline exit foraminal narrowing on the right. L3-4: Vbty-ra-sdrbayin loss of disc height. Vacuum disc phenomenon. Diffuse disc bulge. Borderline central stenosis at 10 mm AP. Minimal facet hypertrophy. Xkvtb-xhsohms-bdoi-left exit foraminal narrowing. Correlate with L3 radiculopathy. L4-5: Left laminectomy. Mild loss of disc height. Vacuum disc phenomenon. Diffuse disc bulge with focal protrusion left paracentral, left sub foraminal, left foraminal region. Marked thickening of the right ligamentum flavum. Mild facet hypertrophy. The combination of the above findings distorts the thecal sac with extradural defects from disc material and thickening of the ligamentum flavum. The central canal is significantly narrowed to 5.3 mm transverse in narrowest dimension. Severe exit foraminal narrowing bilaterally. Correlate with bilateral L4 radiculopathy and likely radiculopathy of the traversing left L5 nerve root. Involvement of the traversing right L5 nerve root not excluded. L5-S1: Mild, diffuse disc bulge. No central stenosis. Mild facet hypertrophy. Exit foraminal narrowing, rrcw-ambaqok-uoho-right. Correlate with L5 radiculopathy. Sacrum: Mild degenerative changes of the SI joints. No fracture. CT/Spine Lumbar WITH Contrast IMPRESSION: 1. Multilevel degenerative disc disease outlined above. Postsurgical change L4/5. This region is associated with central stenosis. See above description. 2. Straightening of the normal lumbar lordosis. 25% height loss from anterior wedging at T12 and L1. Reading Location: [id number] CC: Dr. Paul Mac MD; Dr. Shalom Barraza MD Cloth Booker: Signed Normal [facility] White blood cell (WBC) count Ordered By: Ivy Kern on 04-12-2025 WBC (Bld) [#/Vol] 6.4 10*3/uL 4.4-11.0 [facility] Orthopedic Visit Reporton Orthopedic Visit Report [facility] [facility] [address] [place] [address] OFFICE VISIT Date of Service: 03/16/25 MR#: [id number] Acct: [id number] Name: MOO HOROWITZ Rep #: [id number] : 1945 Provider: ERICA Carvalho Age/Sex: 80/M Location: [facility] [place] Status: Signed Intake Vital Signs 01/18/25 10:58 Height 5 ft 8 in Weight: 190 lb BMI 28.8 BP 107/66 Blood Pressure Location Lt brachial Position Sitting Respiration 18 Pulse 81 Pulse Source Monitor Pulse Oximetry (%) 97 Oxygen Delivery Method room air Intake Visit Reasons: LUMBAR SPINE Allergies diltiazem Adverse Reaction (Intermediate, Verified 03/16/25 14:15) Facial flushing and fatigue carvedilol (From Coreg) Adverse Reaction (Verified 03/16/25 14:15) face tingling Medications ???Medication ???Instructions ???Recorded ???Confirmed ???Type alprazolam 0.5 mg tablet 0.5 mg PO QHS anxiety 12/07/1512/06 History meloxicam 15 mg tablet 15 mg PO DAILY 12/25/21 03/16/25 H istory acetaminophen 500 mg tablet 1,000 mg PO DAILY 12/25/22 5 History (Tylenol Extra Strength) ipratropium bromide 21 mcg (0.03 2 spray intranasal DAILY 09/23/23 03/16/25 History %) nasal spray apixaban 5 mg tablet (Eliquis) 5 mg PO BID #60 tabs 08/01/2412/06 Rx losartan 25 mg tablet 25 mg PO .COMPLEX 01/18/25 5 History losartan 50 mg tablet 50 mg PO .COMPLEX 01/18/25 5 History metoprolol succinate 50 mg 50 mg PO BID #60 tabs 01/18/2512/06 Rx tablet,extended release 24 hr rosuvastatin 20 mg tablet 20 mg PO Q OTHER DAY 01/18/2512/06 History cyclobenzaprine 10 mg tablet 10 mg PO Q8 PRN low back pain 12/0603/16/25 History tramadol 50 mg tablet 50 mg PO TID 03/16/25 03/16/25 His tory Have you [facility] in the past year?: [facility] History Wears glasses Excessive bleeding Arthritis Difficulty swallowing Non-smoker CPAP (continuous positive airway pressure) dependence History of echocardiogram History of stress test Cardiology follow-up encounter Non-sustained ventricular tachycardia Left bundle branch block (LBBB) Raynaud disease Essential (primary) hypertension Over weight LORI (obstructive sleep apnea) 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 Sinus bradycardia Mobitz type II atrioventricular block Cardiomyopathy in disease classified elsewhere Surgical History History of appendectomy History of colonoscopy Biventricular cardiac pacemaker in situ (07/13/15) History of herniorrhaphy History of carpal tunnel surgery of right wrist History of esophagogastroduodenoscopy (EGD) Family History Mother CAD (coronary artery disease) Father CAD (coronary artery disease) Brother Polycystic kidney disease Social History Smoking Status: Never smoker alcohol intake: never substance use type: does not use caffeine: Yes Type: carbonated beverages and tea additional social history: Denies daily use of aspirin or ibuprofen. HPI LUMBAR SPINE Details: This documentation accurately reflects the service provided and the decisions made by , ERICA Carvalho 03/16/25 8554. Part of today???s visit was documented by Kathy S CCMA, acting as scribe. MOO HOROWITZ is a 80 year old M here today for his lumbar spine. He states that about 3 weeks ago he had a flare up of sciatica in his left leg. He denies having pain in the leg but has been having weakness which is new to him. He states that he feels that his left leg function is not as good as his right leg. When he lifts his left foot towards him it doesn't come up very far compared to the right side. He does have pain in the left side of his lower back that he has had for many years. he did bring a disc today with imaging on it from [facility]. Denies numbness, tingling or other associated symptoms. He states that the left leg kind of feels heavy compared to the right side. Says that he has a left-sided groin pain and pain that goes down the side in the back of the left leg. Sitting alleviates his pain. He denies any right sided involvement. He is scheduled to have a CT scan of his lower back that was ordered by Dr. Barraza. He denies previous surgery on his back. He did have a fall in his home 1.5-2 weeks ago due to the leg. He did not get evaluated after his fall. He denied any increase of pain in his back following the fall. He is taking Meloxicam, Tramadol and Cyclobenzaprine for his pain which does help him. He has seen pain management in the past and had his last injection 4-[address] Joceline martinez s (more content not included)... Normal [facility] Cardiology Visit Reporton Cardiology Visit Report [facility] [address] [place] [address] OFFICE VISIT Date of Service: 01/18/25 MR#: [id number] Acct: [id number] Name: MOO HOROWITZ Rep #: [id number] : 1945 Provider: Dr. Driss valdes MD Age/Sex: 80/M Location: [facility] Status: Signed HPI HPI History of Present Illness Details: Patient is a pleasant 80-year-old white male that comes today for monitoring of his cardiovascular status. Patient has a history of paroxysmal atrial fibs/flutter. He has a BiV pacing device in place this primarily works is atrially sensed BiV paced at 96% of the time. His device check today shows he has 9 years of battery life he did have some atrial flutter on December 13, and . And accounted for about 0.3%. The patient back in November had 32 atrial high rate episodes detected the longest lasted 2 hours and a half. This is about 0.4% of his Coumadin of atrial arrhythmia burden. He had 4 ventricular high rate episodes detected 1 was at 200 bpm for 6 seconds. The patient is asymptomatic he has not had any syncope near syncope he is aerobically active. The patient has a history of hypertension that is well-controlled on his current medical therapy. He also has a history of hyperlipidemia that is well-controlled on rosuvastatin 20 mg daily. He was talking about stopping it because of something he read in a magazine. The patient's permanent pacemaker is a BiV pacer implanted in [place] while he was visiting out there in June 2015. This is managed through the [facility] device clinic. The patient carries a history of mild LV dysfunction of 40% EF secondary to tachycardia back in 2014. Repeat echo in 2021 showed his EF was up to 55% he is 96% BiV paced. The patient reports he feels well and has been doing well in his home environment. Intake Vital Signs 10/12/24 06:36 01/18/25 10:58 Height 5 ft 8 in 5 ft 8 in Weight: 190 lb BMI 28.8 BP 107/66 Blood Pressure Location Lt brachial Position Sitting Respiration 18 Pulse 81 Pulse Source Monitor Pulse Oximetry (%) 97 Oxygen Delivery Method room air Intake Visit Reasons: 6 M FU/ESTEFANÍA @ 10:30 [employer] Required: No Accompanied by: Self Is patient in pain?: No Allergies diltiazem Adverse Reaction (Intermediate, Verified 01/18/25 10:58) Facial flushing and fatigue carvedilol (From Coreg) Adverse Reaction (Verified 01/18/25 10:58) face tingling Medications ???Medication ???Instructions ???Recorded ???Confirmed ???Type alprazolam 0.5 mg tablet 0.5 mg PO QHS anxiety 12/07/1504/07 History meloxicam 15 mg tablet 15 mg PO DAILY 12/25/21 01/18/25 H istory acetaminophen 500 mg tablet 1,000 mg PO DAILY 12/25/22 5 History (Tylenol Extra Strength) ipratropium bromide 21 mcg (0.03 2 spray intranasal DAILY 09/23/23 01/18/25 History %) nasal spray cyclobenzaprine 5 mg tablet 5 mg PO QDAY PRN muscle spasm 03/0701/18/25 History apixaban 5 mg tablet (Eliquis) 5 mg PO BID #60 tabs 08/01/2404/07 Rx losartan 25 mg tablet 25 mg PO .COMPLEX 01/18/25 5 History losartan 50 mg tablet 50 mg PO .COMPLEX 01/18/25 5 History metoprolol succinate 50 mg 50 mg PO BID #60 tabs 01/18/2504/07 Rx tablet,extended release 24 hr rosuvastatin 20 mg tablet 20 mg PO Q OTHER DAY 01/18/25 His tory Ejection fraction %: 55 Have you fallen in the past year?: No PFSH Medical History Wears glasses Excessive bleeding Arthritis Difficulty swallowing Non-smoker CPAP (continuous positive airway pressure) dependence History of echocardiogram History of stress test Cardiology follow-up encounter Non-sustained ventricular tachycardia Left bundle branch block (LBBB) Raynaud disease Essential (primary) hypertension Over weight LORI (obstructive sleep apnea) 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 Sinus bradycardia Mobitz type II atrioventricular block Cardiomyopathy in disease classified elsewhere Surgical History History of appendectomy History of colonoscopy Biventricular cardiac pacemaker in situ (07/13/15) History of herniorrhaphy History of carpal tunnel surgery of right wrist History of esophagogastroduodenoscopy (EGD) Family History Mother CAD (coronary artery disease) Father CAD (coronary artery disease) Brother Polycystic kidney disease Social History Smoking Status: Never smoker alcohol intake: never substance use type: does not use caffeine: Yes Type: carbonated beverages and tea additional social history: De (more content not included)... Normal [facility] Pacemaker Checkon 01-18-2025 Pacemaker Check [facility] [address] [place] [address] Pacemaker Check Date of Service: 01/18/25 1659 MR#: [id number] Acct: [id number] Name: MOO HOROWITZ Rep #: [id number] : 1945 From: Sharon Gunn Age/Sex: 80/M Location: [facility] Status: Signed Billing Codes PM Device Codes: 93539 PM Dev Prog Eval, Multi Assessment and Plan Assessment and Plan (1) Non-sustained ventricular tachycardia: Status: Acute Comment: per device check 07/03/21, 07/20/2024 (2) Biventricular cardiac pacemaker in situ: Status: Chronic (3) Mobitz type II atrioventricular block: Status: Chronic (4) Left bundle branch block (LBBB): Status: Chronic 01/18/25 1700 Date Sharon Forbes Signature: Date (if applicable) CC: Normal [facility] Absolute lymphocyte countOrd ered By: Paul Mac on 12-12-2024 Lymphocytes Auto (Unsp spec) [#/Vol] 1.54 10*3/uL 0.83-4.51 [facility] Absolute neutrophil countOrd ered By: Paul Mac on 12-12-2024 Neutrophils (Bld) [#/Vol] 6.0 10*3/uL 2.0-7.7 [facility] Anion gap in Serum or Plasma Ordered By: Paul Mac on 12-12-2024 Anion gap [Moles/Vol] 13 mmol/L 5-15 [facility] Automated lymphocyte count a s percentage of total leukocytesOrdered By: Paul Mac on 12-12-2024 Lymphocytes/100 WBC Auto (Unsp spec) 18.5 % Low 19-41 [facility] BUN/creatinine ratioOrdered By: Paul Mac on 12-12-2024 Urea nitrogen/Creatinine [Mass ratio] 27.3 mg/mg High 10-20 [facility] Basophil percentageOrdered B y: Paul Mac on 12-12-2024 Basophils/100 WBC (Bld) 0.6 % 0-1 [facility] Bilirubin, totalOrdered By: Paul Mac on 12-12-2024 Bilirubin [Mass/Vol] 0.47 mg/dL 0.00-1.30 [facility] CBC W/Diff, Automatedon 11-14 Absolute Lymph 1.54 X10 3/uL Normal 0.83-4.51 [facility] Comment on above: Performed By: #### L 100.0100, L500.4050, L500.4100 #### [facility] [address] [place], [address] Absolute Neut 6.0 X10 3/uL Normal 2.0-7.7 [facility] Comment on above: Performed By: #### L 100.0100, L500.4050, L500.4100 #### [facility] [address] [place], [address] Basophils/100 WBC (Bld) 0.6 % Normal 0-1 [facility] Comment on above: Performed By: #### L 100.0100, L500.4050, L500.4100 #### [facility] [address] [place], [address] Eosinophils/100 WBC (Bld) 0.8 % Normal 0-5 [facility] Comment on above: Performed By: #### L 100.0100, L500.4050, L500.4100 #### [facility] [address] [place], [address] Erythrocyte distribution width (RBC) [Ratio] 13.8 % Normal 11.6-14.6 [facility] Comment on above: Performed By: #### L 100.0100, L500.4050, L500.4100 #### [facility] [address] [place], [address] Hematocrit (Bld) [Volume fraction] 38.0 % Low 40-54 [facility] Comment on above: Performed By: #### L 100.0100, L500.4050, L500.4100 #### [facility] [address] [place], [address] Hemoglobin (Bld) [Mass/Vol] 12.5 g/dL Low 13.0-16.5 [facility] Comment on above: Performed By: #### L 100.0100, L500.4050, L500.4100 #### [facility] [address] [place], [address] IG% 0.200 Normal 0.0-0.9 [facility] Comment on above: Result Comment: IG% - Immature Granulocytes (promyelocytes, myelocytes and metamyelocytes) > 1% indicates that a LEFT SHIFT is Present. Performed By: #### L 100.0100, L500.4050, L500.4100 #### [facility] [address] [place], [address] Lymphocytes/100 WBC (Bld) 18.5 % Low 19-41 [facility] Comment on above: Performed By: #### L 100.0100, L500.4050, L500.4100 #### [facility] [address] [place], [address] MCH (RBC) [Entitic mass] 31.3 pg Normal 27.0-32.0 [facility] Comment on above: Performed By: #### L 100.0100, L500.4050, L500.4100 #### [facility] [address] [place], [address] MCHC (RBC) [Mass/Vol] 32.9 g/dL Normal 32-36 [facility] Comment on above: Performed By: #### L 100.0100, L500.4050, L500.4100 #### [facility] [address] [place], [address] MCV (RBC) [Entitic vol] 95.0 fL High 80-94 [facility] Comment on above: Performed By: #### L 100.0100, L500.4050, L500.4100 #### [facility] [address] [place], [address] Monocytes/100 WBC (Bld) 8.4 % Normal 0-10 [facility] Comment on above: Performed By: #### L 100.0100, L500.4050, L500.4100 #### [facility] [address] [place], [address] Neutrophils/100 WBC (Bld) 71.5 % High 47-70 [facility] Comment on above: Performed By: #### L 100.0100, L500.4050, L500.4100 #### [facility] [address] [place], [address] Nucleated RBC (Bld) [#/Vol] 0 10*3/uL Normal 0-5 [facility] Comment on above: Performed By: #### L 100.0100, L500.4050, L500.4100 #### [facility] [address] [place], [address] Platelet mean volume (Bld) [Entitic vol] 11.4 fL Normal 6.2-12.0 [facility] Comment on above: Performed By: #### L 100.0100, L500.4050, L500.4100 #### [facility] [address] [place], [address] Platelets (Bld) [#/Vol] 175 10*3/uL Normal 150-450 [facility] Comment on above: Performed By: #### L 100.0100, L500.4050, L500.4100 #### [facility] [address] [place], [address] RBC (Bld) [#/Vol] 4.00 10*6/uL Low 4.6-6.2 [facility] Comment on above: Performed By: #### L 100.0100, L500.4050, L500.4100 #### [facility] [address] [place], [address] RDW SD 48.2 fl High 35.1-43.9 [facility] Comment on above: Performed By: #### L 100.0100, L500.4050, L500.4100 #### [facility] [address] [place], [address] WBC (Bld) [#/Vol] 8.3 10*3/uL Normal 4.4-11.0 [facility] Comment on above: Performed By: #### L 100.0100, L500.4050, L500.4100 #### [facility] [address] [place], [address] Calculated very low density lipoprotein (VLDL) cholesterol measurementOrdered By: Paul Mac on 12-12-2024 Calculated very low density lipoprotein (VLDL) cholesterol measurement 15 mg/dL 5-40 [facility] VLDL Cholesterol 15 mg/dL 5-40 [facility] Carbon dioxide, total [Moles /volume] in Central venous bloodOrdered By: Paul Mac on 12-12-2024 CO2 [Moles/Vol] 21.2 mmol/L 21.0-32.0 [facility] Chloride assayOrdered By: Erica Mac on 12-12-2024 Chloride [Moles/Vol] 105 mmol/L 98-108 [facility] Comprehensive Metabolic Prof ilon 12-12-2024 Albumin [Mass/Vol] 4.1 g/dL Normal 3.4-4.8 [facility] Comment on above: Performed By: #### L 100.0100, L500.4050, L500.4100 ####[facility] [address] [place], [address] Albumin/Globulin [Mass ratio] 1.5 {ratio} Normal 0.9-2.4 [facility] Comment on above: Performed By: #### L 100.0100, L500.4050, L500.4100 ####[facility] [address] [place], [address] ALK PHOS 79 U/L Normal 40-129 [facility] Comment on above: Performed By: #### L 100.0100, L500.4050, L500.4100 ####[facility] [address] [place], [address] ALT [Catalytic activity/Vol] 31 U/L Normal <=46 [facility] Comment on above: Performed By: #### L 100.0100, L500.4050, L500.4100 ####[facility] [address] [place], [address] AST [Catalytic activity/Vol] 37 U/L Normal <=37 [facility] Comment on above: Performed By: #### L 100.0100, L500.4050, L500.4100 ####[facility] [address] [place], [address] Bilirubin [Mass/Vol] 0.47 mg/dL Normal 0.00-1.30 [facility] Comment on above: Performed By: #### L 100.0100, L500.4050, L500.4100 ####[facility] [address] [place], [address] BUN/CRE 27.3 RATIO High 10-20 [facility] Comment on above: Performed By: #### L 100.0100, L500.4050, L500.4100 ####[facility] [address] [place], [address] Calcium [Mass/Vol] 9.4 mg/dL Normal 7.6-11.0 [facility] Comment on above: Performed By: #### L 100.0100, L500.4050, L500.4100 ####[facility] [address] [place], [address] Chloride [Moles/Vol] 105 mmol/L Normal 98-108 [facility] Comment on above: Performed By: #### L 100.0100, L500.4050, L500.4100 ####[facility] [address] [place], [address] CO2 [Moles/Vol] 21.2 mmol/L Normal 21.0-32.0 [facility] Comment on above: Performed By: #### L 100.0100, L500.4050, L500.4100 ####[facility] [address] [place], [address] Creatinine [Mass/Vol] 1.15 mg/dL Normal 0.70-1.20 [facility] Comment on above: Performed By: #### L 100.0100, L500.4050, L500.4100 ####[facility] [address] [place], [address] GAP 13 Normal 5-15 [facility] Comment on above: Performed By: #### L 100.0100, L500.4050, L500.4100 ####[facility] [address] [place], [address] GFR/1.73 sq M.predicted among non-blacks MDRD (S/P/Bld) [Vol rate/Area] 65 mL/min/{1.73_m2} Normal >60 [facility] Comment on above: Result Comment: mL/m in/1.73m2 CKD-EPI Creatinine Equation (2020) Performed By: #### L 100.0100, L500.4050, L500.4100 ####[facility] [address] [place], [address] Globulin (S) [Mass/Vol] 2.8 g/dL Normal 2.2-4.2 [facility] Comment on above: Performed By: #### L 100.0100, L500.4050, L500.4100 ####[facility] [address] [place], [address] Glucose [Mass/Vol] 112 mg/dL High 70-99 [facility] Comment on above: Performed By: #### L 100.0100, L500.4050, L500.4100 ####[facility] [address] [place], [address] Potassium [Moles/Vol] 4.8 mmol/L Normal 3.3-5.1 [facility] Comment on above: Result Comment: Hemo lysis present, Results??could be affected. ?? Performed By: #### L 100.0100, L500.4050, L500.4100 ####[facility] [address] [place], [address] Sodium [Moles/Vol] 139 mmol/L Normal 133-145 [facility] Comment on above: Performed By: #### L 100.0100, L500.4050, L500.4100 ####[facility] [address] [place], [address] T PROT 6.9 g/dL Normal 5.9-8.4 [facility] Comment on above: Performed By: #### L 100.0100, L500.4050, L500.4100 ####[facility] [address] [place], [address] Urea nitrogen [Mass/Vol] 31 mg/dL High 4-19 [facility] Comment on above: Performed By: #### L 100.0100, L500.4050, L500.4100 ####[facility] [address] [place], [place], [address] Eosinophil percentageOrdered By: Paul Mac on 12-12-2024 Eosinophils/100 WBC (Bld) 0.8 % 0-5 [facility] Erythrocyte distribution wid th (RBC) [Ratio]Ordered By: Paul Mac on 12-12-2024 Erythrocyte distribution width (RBC) [Entitic vol] 48.2 fL High 35.1-43.9 [facility] Erythrocyte distribution wid th ratioOrdered By: Paul Mac on 12-12-2024 Erythrocyte distribution width (RBC) [Ratio] 13.8 % 11.6-14.6 [facility] Erythrocyte distribution wid th standard deviationOrdered By: Paul Mac on 12-12-2024 Erythrocyte distribution width (RBC) [Ratio] 48.2 fl High 35.1-43.9 [facility] GFR/1.73 sq M.predicted justin g non-blacks MDRD (S/P/Bld) [Vol rate/Area]Ordered By: Paul Mac on 12-12-2024 Estimated GFR (MDRD) Non-Af Amer 65 >60 [facility] Comment on above: mL/min/1.73m2 CKD-EP I Creatinine Equation (2020) Glomerular filtration rate ( GFR) estimation/1.73 sq m using serum, plasma, or whole bOrdered By: Paul Mac on 12-12-2024 GFR/1.73 sq M.predicted among non-blacks MDRD (S/P/Bld) [Vol rate/Area] 65 mL/min/{1.73_m2} >60 [facility] Comment on above: mL/min/1.73m2 CKD-EP I Creatinine Equation (2020) Hematocrit Auto (Bld) [Volum e fraction]Ordered By: Paul Mac on 12-12-2024 Hematocrit (Bld) [Volume fraction] 38.0 % Low 40-54 [facility] Hemoglobin measurementOrdere d By: Paul Mac on 12-12-2024 Hemoglobin (Bld) [Mass/Vol] 12.5 g/dL Low 13.0-16.5 [facility] Immature granulocytes/100 WB C Auto (Bld)Ordered By: Paul Mac on 12-12-2024 Immature granulocytes/100 WBC (Bld) 0.200 % 0.0-0.9 [facility] Comment on above: IG% - Immature Granu locytes (promyelocytes, myelocytes and metamyelocytes) > 1% indicates that a LEFT SHIFT is Present. LDL calc ser/plasOrdered By: Paul Mac on 12-12-2024 Cholesterol in LDL [Mass/Vol] 73 mg/dL [facility] Comment on above: Xvjmacqhvr=170-078 m g/dL & Higher Lcui=385 mg/dL or greater LDL Cholesterol, Calculated 73 mg/dL [facility] Comment on above: Lkczndeqjd=550-451 m g/dL & Higher Vtrz=350 mg/dL or greater Laboratory - Chemistry and C hemistry - challengeOrdered By: Paul Mac on 12-12-2024 AST [Catalytic activity/Vol] 37 U/L <38 [facility] Lipid Profileon 12-12-2024 CHOL:HDL 2.42 Normal [facility] Comment on above: Performed By: #### L 100.0100, L500.4050, L500.4100 #### [facility] [address] [place], [address] Cholesterol [Mass/Vol] 150 mg/dL Normal <=200 [facility] Comment on above: Result Comment: Chol esterol level, Desirable <200 mg/dL Borderline high cholesterol 200-239 mg/dL High cholesterol >=240 mg/dL Recommendations of the NCEP Adult Treatment Panel for the following risk-cutoff thresholds for the [place] population. Performed By: #### L 100.0100, L500.4050, L500.4100 #### [facility] [address] [place], [address] Cholesterol in HDL [Mass/Vol] 62 mg/dL Normal [facility] Comment on above: Result Comment: Katherin onal Cholesterol Education Program (NCEP) guidelines: <40 mg/dL: Low HDL-cholesterol (major risk factor for CHD) >= 60 mg/dL: High HDL-cholesterol (negative risk factor for CHD) HDL-cholesterol is affected by a number of factors, e.g. smoking, exercise, hormones, sex and age. Performed By: #### L 100.0100, L500.4050, L500.4100 #### [facility] [address] [place], [address] Cholesterol in LDL [Mass/Vol] 73 mg/dL Normal [facility] Comment on above: Result Comment: Bord suiliw=623-816 mg/dL Higher Glzm=519 mg/dL or greater Performed By: #### L 100.0100, L500.4050, L500.4100 #### [facility] [address] [place], [address] Cholesterol in VLDL [Mass/Vol] 15 mg/dL Normal 5-40 [facility] Comment on above: Performed By: #### L 100.0100, L500.4050, L500.4100 #### [facility] [address] [place], [address] Triglyceride [Mass/Vol] 74 mg/dL Normal [facility] Comment on above: Result Comment: The drugs N-Acetylcysteine and Metamizole may falsely depress this assay. Normal range: <150 mg/dL Borderline High: 150-199 mg/dL High: 200-499 mg/dL Very High: >500 mg/dL Performed By: #### L 100.0100, L500.4050, L500.4100 #### [facility] [address] [place], [address] Lymphocytes Auto (Unsp spec) [#/Vol]Ordered By: Paul Mac on 12-12-2024 Lymphocytes (Bld) [#/Vol] 1.54 10*3/uL 0.83-4.51 [facility] Lymphocytes/100 WBC Auto (Un sp spec)Ordered By: Paul Mac on 12-12-2024 Lymphocytes/100 WBC (Bld) 18.5 % Low 19-41 [facility] MCV (mean corpuscular volume ) determinationOrdered By: Paul Mac on 12-12-2024 MCV (RBC) [Entitic vol] 95.0 fL High 80-94 [facility] Mean corpuscular hemoglobin (MCH) determinationOrdered By: Paul Mac on 12-12-2024 MCH (RBC) [Entitic mass] 31.3 pg 27.0-32.0 [facility] Mean corpuscular hemoglobin concentration (MCHC) determinationOrdered By: Paul Mac on 12-12-2024 MCHC (RBC) [Mass/Vol] 32.9 g/dL 32-36 [facility] Mean platelet volume determi nationOrdered By: Paul Mac on 12-12-2024 Platelet mean volume (Bld) [Entitic vol] 11.4 fL 6.2-12.0 [facility] Monocyte percentageOrdered B y: Paul Mac on 12-12-2024 Monocytes/100 WBC (Bld) 8.4 % 0-10 [facility] Neutrophil percentageOrdered By: Paul Mac on 12-12-2024 Neutrophils/100 WBC (Bld) 71.5 % High 47-70 [facility] Nucleated red blood cell per centageOrdered By: Paul Mac on 12-12-2024 Nucleated RBC/100 WBC (Bld) [Ratio] 0 % 0-5 [facility] Platelet countOrdered By: Erica Mac on 12-12-2024 Platelets (Bld) [#/Vol] 175 10*3/uL 150-450 [facility] Potassium (Unsp spec) [Mass/ Vol]Ordered By: Paul Mac on 12-12-2024 Potassium [Moles/Vol] 4.8 mmol/L 3.3-5.1 [facility] Comment on above: Hemolysis present, R esults could be affected. Potassium measurement (mass/ volume)Ordered By: Paul Mac on 12-12-2024 Potassium (Unsp spec) [Mass/Vol] 4.8 mmol/L 3.3-5.1 [facility] Comment on above: Hemolysis present, R esults could be affected. RBC Auto (Bld) [#/Vol]Ordere d By: Paul Mac on 12-12-2024 RBC (Bld) [#/Vol] 4.00 10*6/uL Low 4.6-6.2 [facility] Screening total cholesterol/ high density lipoprotein (HDL) cholesterol ratioOrdered By: Paul Mac on 12-12-2024 Cholesterol.total/Cho lesterol in HDL [Mass ratio] 2.42 {ratio} [facility] Serum creatinine measurement (mass/volume)Ordered By: Paul Mac on 12-12-2024 Creatinine [Mass/Vol] 1.15 mg/dL 0.70-1.20 [facility] Serum globulin measurementOr dered By: Paul Mac on 12-12-2024 Globulin (S) [Mass/Vol] 2.8 g/dL 2.2-4.2 [facility] Serum glucose measurement (m ass/volume)Ordered By: Paul Mac on 12-12-2024 Glucose [Mass/Vol] 112 mg/dL High 70-99 [facility] Serum or plasma alanine lim otransferase (ALT) measurementOrdered By: Paul Mac on 12-12-2024 ALT [Catalytic activity/Vol] 31 U/L <47 [facility] Serum or plasma albumin annette urement (mass/volume)Ordered By: Paul Mac on 12-12-2024 Albumin [Mass/Vol] 4.1 g/dL 3.4-4.8 [facility] Serum or plasma albumin/glob ulin mass ratioOrdered By: Paul Mac on 12-12-2024 Albumin/Globulin [Mass ratio] 1.5 {ratio} 0.9-2.4 [facility] Serum or plasma alkaline ha sphatase measurementOrdered By: Paul Mac on 12-12-2024 ALP [Catalytic activity/Vol] 79 U/L 40-129 [facility] Serum or plasma calcium annette urement (mass/volume)Ordered By: Paul Mac on 12-12-2024 Calcium [Mass/Vol] 9.4 mg/dL 7.6-11.0 [facility] Serum or plasma cholesterol in HDL measurement (mass/volume)Ordered By: Paul Mac on 12-12-2024 Cholesterol in HDL [Mass/Vol] 62 mg/dL >40 [facility] Comment on above: National Cholesterol Education Program (NCEP) guidelines:<40 mg/dL: Low HDL-cholesterol (major risk factor for CHD)>= 60 mg/dL: High HDL-cholesterol (negative risk factor for CHD)HDL-cholesterol is affected by a number of factors, e.g. smoking, exercise, hormones, sex and age. Serum or plasma cholesterol measurement (mass/volume)Ordered By: Paul Mac on 12-12-2024 Cholesterol [Mass/Vol] 150 mg/dL <201 [facility] Comment on above: Cholesterol level, D esirable <200 mg/dLBorderline high cholesterol 200-239 mg/dLHigh cholesterol >=240 mg/dLRecommendations of the NCEP Adult Treatment Panel for the following risk-cutoff thresholds for the [place] population. Serum or plasma urea nitroge n measurement (mass/volume)Ordered By: Paul Mac on 12-12-2024 Urea nitrogen [Mass/Vol] 31 mg/dL High 4-19 [facility] Sodium levelOrdered By: Paul Mac on 12-12-2024 Sodium [Moles/Vol] 139 mmol/L 133-145 [facility] Total proteinOrdered By: Palma Mac on 12-12-2024 Protein [Mass/Vol] 6.9 g/dL 5.9-8.4 [facility] Triglycerides measurementOrd ered By: Paul Mac on 12-12-2024 Triglyceride [Mass/Vol] 74 mg/dL <199 [facility] Comment on above: The drugs N-Acetylcy steine and Metamizole may falsely depress this assay. Normal range: <150 mg/dLBorderline High: 150-199 mg/dLHigh: 200-499 mg/dLVery High: >500 mg/dL White blood cell (WBC) count Ordered By: Paul Mac on 12-12-2024 WBC (Bld) [#/Vol] 8.3 10*3/uL 4.4-11.0 [facility] Pulmonary Visit Reporton Pulmonary Visit Report [facility] [place] [address] [place] [address] OFFICE VISIT Date of Service: 10/12/24 MR#: [id number] Acct: [id number] Name: MOO HOROWITZ Rep #: [id number] : 1945 Provider: Debbie Asher NP Age/Sex: 79/M Location: [facility] – [place]W Status: Signed Assessment and Plan Assessment and Plan (1) LORI (obstructive sleep apnea): Status: Chronic Plan: Sleep apnea is well-controlled and patient is receiving benefit from PAP therapy. I recommend that he continue with this current regimen on CPAP at 6 cm. I recommend that he replace his mask tubing and supplies on a routine basis. Follow-up in 12 months with compliance download at that time. (2) Pedal edema: Status: Acute Plan: There is 2+/4 bilateral lower extremity pitting edema. I have asked for him to reduce his salt intake. I have also recommended that he utilize compression stockings and follow-up with cardiology as planned. Plan Details Follow Up: 12 Months (LMR) HPI HPI Comments Details: The patient is a 79-year-old male who presents to the clinic today for a routine scheduled follow-up office visit. He is ambulatory and currently on room air. If you recall, the patient was initially referred to our office in August 2018 for evaluation of obstructive sleep apnea. Diagnostic polysomnogram completed on August 26, 2018 interpreted as showing an overall AHI average of 18.7 events per hour, noted to 32 events per hour in the REM stage of sleep. Also noted an elevated PLMS index of 8.5 events per hour. Impression is mild to moderate obstructive sleep apnea. A follow-up titration study was subsequently completed in September 2018, indicating the need for CPAP with a pressure support of 6 cm of water. His weight and appetite have been stable. He denies fevers, chills or night sweats. He will only have shortness of breath with overexertion. He denies wheeze, cough, chest pain and chest tightness. The patient is using CPAP without significant air leak, oral dryness, snore. There are no concerns about the air pressure. Sleep is refreshing. The patient is reporting good compliance. Daytime hypersomnia is improved. He is using a nasal mask. He does not nap. He is not experiencing morning headache. His did notice a snore prior to using PAP therapy and this is not present now. The patient reports that he has had lower extremity swelling for the past few months. He does endorse that he has not watched my salt intake. He is a lifetime non-smoker. Documentation reviewed with patient today includes: Compliance download from October 10, 2024 for the last 30 days shows that he is 100% compliant with therapy, using the device 9 hours and 19 minutes nightly average. He is utilizing a CPAP at 6 cm with an AHI of 0.6. 95th percentile air leak is 18 L/min. Intake Vital Signs 10/08/23 09:54 07/20/24 10:37 10/12/24 06:36 Height 5 ft 8 in 5 ft 8 in 5 ft 8 in Weight: 214 lb BMI 32.5 BP 110/67 Blood Pressure Location Lt brachial Position Sitting Respiration 18 Pulse 85 Pulse Source Monitor Temp 95.8 F L Temperature Source Temporal Artery Pulse Oximetry (%) 98 Oxygen Delivery Method room air Intake Visit Reasons: 1 Y [employer] Required: No DME Vendor: farhad James Accompanied by: Self Is patient in pain?: No Allergies diltiazem Adverse Reaction (Intermediate, Verified 10/12/24 13:34) Facial flushing and fatigue carvedilol (From Coreg) Adverse Reaction (Verified 10/12/24 13:34) face tingling Medications ???Medication ???Instructions ???Recorded ???Confirmed ???Type alprazolam 0.5 mg tablet 0.5 mg PO QHS anxiety 12/07/15 10/12/24 History meloxicam 15 mg tablet 15 mg PO DAILY 12/25/21 10/12/24 History acetaminophen 500 mg tablet 1,000 mg PO DAILY 12/25/22 10/12/24 History (Tylenol Extra Strength) ipratropium bromide 21 mcg (0.03 2 spray intranasal DAILY 09/23/23 10/12/24 History %) nasal spray metoprolol succinate 50 mg 50 mg PO DAILY #30 tabs 01/18/24 10/12/24 Rx tablet,extended release 24 hr cyclobenzaprine 5 mg tablet 5 mg PO QDAY PRN muscle spasm 07/20/24 10/12/24 History losartan 25 mg tablet 25 mg PO .COMPLEX 07/20/24 10/12/24 History losartan 50 mg tablet 50 mg PO .COMPLEX 07/20/24 10/12/24 History apixaban 5 mg tablet (Eliquis) 5 mg PO BID #60 tabs 08/01/24 10/12/24 Rx rosuvastatin 20 mg tablet 20 mg PO QDAY #90 tabs 09/19/24 10/12/24 Rx Have you [facility] in the past year?: [facility] Wears glasses Excessive bleeding Arthritis Difficulty swallowing Non-smoker CPAP (continuous positive airway pressure) dependence History of echocardiogram History of stress test Cardiology follow-up encounter No (more content not included)... Normal [facility] BNP,B-Type NATRIURETIC PEPTI Keyur 07-28-2024 Natriuretic peptide B (Bld) [Mass/Vol] 80.1 pg/mL Normal 0-100 [facility] Comment on above: Performed By: #### L 100.0100, L500.4050, L501.5200, L503.6620, L500.4100, L501.9910 ####[facility] [address] [place], [address] CBC W/Diff, Automatedon 07-15 Absolute Lymph 1.39 X10 3/uL Normal 0.83-4.51 [facility] Comment on above: Performed By: #### L 100.0100, L500.4050, L501.5200, L503.6620, L500.4100, L501.9910 ####[facility] [address] [place], [address] Absolute Neut 3.7 X10 3/uL Normal 2.0-7.7 [facility] Comment on above: Performed By: #### L 100.0100, L500.4050, L501.5200, L503.6620, L500.4100, L501.9910 ####[facility] [address] [place], [address] Basophils/100 WBC (Bld) 0.5 % Normal 0-1 [facility] Comment on above: Performed By: #### L 100.0100, L500.4050, L501.5200, L503.6620, L500.4100, L501.9910 ####[facility] [address] [place], [address] Eosinophils/100 WBC (Bld) 2.0 % Normal 0-5 [facility] Comment on above: Performed By: #### L 100.0100, L500.4050, L501.5200, L503.6620, L500.4100, L501.9910 ####[facility] [address] [place], [address] Erythrocyte distribution width (RBC) [Ratio] 13.6 % Normal 11.6-14.6 [facility] Comment on above: Performed By: #### L 100.0100, L500.4050, L501.5200, L503.6620, L500.4100, L501.9910 ####[facility] [address] [place], [address] Hematocrit (Bld) [Volume fraction] 36.3 % Low 40-54 [facility] Comment on above: Performed By: #### L 100.0100, L500.4050, L501.5200, L503.6620, L500.4100, L501.9910 ####[facility] [address] [place], [address] Hemoglobin (Bld) [Mass/Vol] 12.1 g/dL Low 13.0-16.5 [facility] Comment on above: Performed By: #### L 100.0100, L500.4050, L501.5200, L503.6620, L500.4100, L501.9910 ####[facility] [address] [place], [address] IG% 0.700 Normal 0.0-0.9 [facility] Comment on above: Result Comment: IG% - Immature Granulocytes (promyelocytes, myelocytes and metamyelocytes) > 1% indicates that a LEFT SHIFT is Present. Performed By: #### L 100.0100, L500.4050, L501.5200, L503.6620, L500.4100, L501.9910 ####[facility] [address] [place], [address] Lymphocytes/100 WBC (Bld) 23.4 % Normal 19-41 [facility] Comment on above: Performed By: #### L 100.0100, L500.4050, L501.5200, L503.6620, L500.4100, L501.9910 ####[facility] [address] [place], [address] MCH (RBC) [Entitic mass] 32.4 pg High 27.0-32.0 [facility] Comment on above: Performed By: #### L 100.0100, L500.4050, L501.5200, L503.6620, L500.4100, L501.9910 ####[facility] [address] [place], [address] MCHC (RBC) [Mass/Vol] 33.3 g/dL Normal 32-36 [facility] Comment on above: Performed By: #### L 100.0100, L500.4050, L501.5200, L503.6620, L500.4100, L501.9910 ####[facility] [address] [place], [address] MCV (RBC) [Entitic vol] 97.1 fL High 80-94 [facility] Comment on above: Performed By: #### L 100.0100, L500.4050, L501.5200, L503.6620, L500.4100, L501.9910 ####[facility] [address] [place], [address] Monocytes/100 WBC (Bld) 11.4 % High 0-10 [facility] Comment on above: Performed By: #### L 100.0100, L500.4050, L501.5200, L503.6620, L500.4100, L501.9910 ####[facility] [address] [place], [address] Neutrophils/100 WBC (Bld) 62.0 % Normal 47-70 [facility] Comment on above: Performed By: #### L 100.0100, L500.4050, L501.5200, L503.6620, L500.4100, L501.9910 ####[facility] [address] [place], [address] Nucleated RBC (Bld) [#/Vol] 0 10*3/uL Normal 0-5 [facility] Comment on above: Performed By: #### L 100.0100, L500.4050, L501.5200, L503.6620, L500.4100, L501.9910 ####[facility] [address] [place], [address] Platelet mean volume (Bld) [Entitic vol] 11.6 fL Normal 6.2-12.0 [facility] Comment on above: Performed By: #### L 100.0100, L500.4050, L501.5200, L503.6620, L500.4100, L501.9910 ####[facility] [address] [place], [address] Platelets (Bld) [#/Vol] 198 10*3/uL Normal 150-450 [facility] Comment on above: Performed By: #### L 100.0100, L500.4050, L501.5200, L503.6620, L500.4100, L501.9910 ####[facility] [address] [place], [address] RBC (Bld) [#/Vol] 3.74 10*6/uL Low 4.6-6.2 [facility] Comment on above: Performed By: #### L 100.0100, L500.4050, L501.5200, L503.6620, L500.4100, L501.9910 ####[facility] [address] [place], [address] RDW SD 48.7 fl High 35.1-43.9 [facility] Comment on above: Performed By: #### L 100.0100, L500.4050, L501.5200, L503.6620, L500.4100, L501.9910 ####[facility] [address] [place], [address] WBC (Bld) [#/Vol] 6.0 10*3/uL Normal 4.4-11.0 [facility] Comment on above: Performed By: #### L 100.0100, L500.4050, L501.5200, L503.6620, L500.4100, L501.9910 ####[facility] [address] [place], [address] Comprehensive Metabolic Prof [facility] 07-28-2024 Albumin [Mass/Vol] 3.6 g/dL Normal 3.2-5.0 [facility] Comment on above: Order Comment: DR. Cruz CULLEN ORDERED PSA,CMP,LIPIDDR.JAMES ORDERED BTNP,CBCD,CMP,MG Performed By: #### L 100.0100, L500.4050, L501.5200, L503.6620, L500.4100, L501.9910 ####[facility] [address] [place], [address] Albumin/Globulin [Mass ratio] 1.1 {ratio} Normal 0.9-2.4 [facility] Comment on above: Order Comment: DR. Cruz CULLEN ORDERED PSA,CMP,LIPIDDR.JAMES ORDERED BTNP,CBCD,CMP,MG Performed By: #### L 100.0100, L500.4050, L501.5200, L503.6620, L500.4100, L501.9910 ####[facility] [address] [place], [address] ALK P 91 U/L Normal 45-117 [facility] Comment on above: Order Comment: DR. Cruz CULLEN ORDERED PSA,CMP,LIPIDDR.JAMES ORDERED BTNP,CBCD,CMP,MG Performed By: #### L 100.0100, L500.4050, L501.5200, L503.6620, L500.4100, L501.9910 ####[facility] [address] [place], [address] ALT [Catalytic activity/Vol] 25 U/L Normal 16-61 [facility] Comment on above: Order Comment: DR. Cruz CULLEN ORDERED PSA,CMP,LIPIDDR.JAMES ORDERED BTNP,CBCD,CMP,MG Performed By: #### L 100.0100, L500.4050, L501.5200, L503.6620, L500.4100, L501.9910 ####[facility] [address] [place], [address] AST [Catalytic activity/Vol] 21 U/L Normal 15-37 [facility] Comment on above: Order Comment: DR. Cruz CULLEN ORDERED PSA,CMP,LIPIDDR.JAMES ORDERED BTNP,CBCD,CMP,MG Performed By: #### L 100.0100, L500.4050, L501.5200, L503.6620, L500.4100, L501.9910 ####[facility] [address] [place], [address] Bilirubin [Mass/Vol] 0.40 mg/dL Normal 0.20-1.00 [facility] Comment on above: Order Comment: DR. Cruz CULLEN ORDERED PSA,CMP,LIPIDDR.JAMES ORDERED BTNP,CBCD,CMP,MG Result Comment: For patients on eltrombopag therapy, use of Dimension [place] TBIL is not recommended. Performed By: #### L 100.0100, L500.4050, L501.5200, L503.6620, L500.4100, L501.9910 ####[facility] [address] [place], [address] BUN/CRE 27.8 RATIO High 10-20 [facility] Comment on above: Order Comment: DR. Cruz CULLEN ORDERED PSA,CMP,LIPIDDR.JAMES ORDERED BTNP,CBCD,CMP,MG Performed By: #### L 100.0100, L500.4050, L501.5200, L503.6620, L500.4100, L501.9910 ####[facility] [address] [place], [address] CA,Total 9.2 mg/dL Normal 8.5-10.1 [facility] Comment on above: Order Comment: DR. Cruz CULLEN ORDERED PSA,CMP,LIPIDDR.JAMES ORDERED BTNP,CBCD,CMP,MG Performed By: #### L 100.0100, L500.4050, L501.5200, L503.6620, L500.4100, L501.9910 ####[facility] [address] [place], [address] Chloride [Moles/Vol] 104 mmol/L Normal 98-107 [facility] Comment on above: Order Comment: DR. Cruz CULLEN ORDERED PSA,CMP,LIPIDDR.JAMES ORDERED BTNP,CBCD,CMP,MG Performed By: #### L 100.0100, L500.4050, L501.5200, L503.6620, L500.4100, L501.9910 ####[facility] [address] [place], [address] CO2 [Moles/Vol] 30.0 mmol/L Normal 21.0-32.0 [facility] Comment on above: Order Comment: DR. Cruz CULLEN ORDERED PSA,CMP,LIPIDDR.JAMES ORDERED BTNP,CBCD,CMP,MG Performed By: #### L 100.0100, L500.4050, L501.5200, L503.6620, L500.4100, L501.9910 ####[facility] [address] [place], [address] Creatinine [Mass/Vol] 1.08 mg/dL Normal 0.70-1.30 [facility] Comment on above: Order Comment: DR. Cruz CULLEN ORDERED PSA,CMP,LIPIDDR.JAMES ORDERED BTNP,CBCD,CMP,MG Result Comment: The validity of the calculated GFR GFRAA in patients over 70 years has not been determined. Clinical correlation is essential. Performed By: #### L 100.0100, L500.4050, L501.5200, L503.6620, L500.4100, L501.9910 ####[facility] [address] [place], [place], [phone] EST GFR - AA 85 mL/min Normal >60 [facility] Comment on above: Order Comment: DR. Cruz CULLEN ORDERED PSA,CMP,LIPIDDR.JAMES ORDERED BTNP,CBCD,CMP,MG Result Comment: Afri can Iranian GFR Calc Performed By: #### L 100.0100, L500.4050, L501.5200, L503.6620, L500.4100, L501.9910 ####[facility] [address] [place], [address] GAP 5 Normal 5-15 [facility] Comment on above: Order Comment: DR. Cruz CULLEN ORDERED PSA,CMP,LIPIDDR.JAMES ORDERED BTNP,CBCD,CMP,MG Performed By: #### L 100.0100, L500.4050, L501.5200, L503.6620, L500.4100, L501.9910 ####[facility] [address] [place], [address] GFR/1.73 sq M.predicted among non-blacks MDRD (S/P/Bld) [Vol rate/Area] 70 mL/min/{1.73_m2} Normal >60 [facility] Comment on above: Order Comment: DR. Cruz CULLEN ORDERED PSA,CMP,LIPIDDR.JAMES ORDERED BTNP,CBCD,CMP,MG Result Comment: Non- GFR Calc Performed By: #### L 100.0100, L500.4050, L501.5200, L503.6620, L500.4100, L501.9910 ####[facility] [address] [place], [address] Globulin (S) [Mass/Vol] 3.3 g/dL Normal 2.2-4.2 [facility] Comment on above: Order Comment: DR. Cruz CULLEN ORDERED PSA,CMP,LIPIDDR.JAMES ORDERED BTNP,CBCD,CMP,MG Performed By: #### L 100.0100, L500.4050, L501.5200, L503.6620, L500.4100, L501.9910 ####[facility] [address] [place], [address] Glucose [Mass/Vol] 103 mg/dL Normal 74-106 [facility] Comment on above: Order Comment: DR. Cruz CULLEN ORDERED PSA,CMP,LIPIDDR.JAMES ORDERED BTNP,CBCD,CMP,MG Result Comment: Fast ing Glucose result from 100 to 125 mg/dL suggests IMPAIRED HOMEOSTASIS per A.D.A. criteria. Performed By: #### L 100.0100, L500.4050, L501.5200, L503.6620, L500.4100, L501.9910 ####[facility] [address] [place], [address] Potassium [Moles/Vol] 4.3 mmol/L Normal 3.5-5.1 [facility] Comment on above: Order Comment: DR. Cruz CULLEN ORDERED PSA,CMP,LIPIDDR.JAMES ORDERED BTNP,CBCD,CMP,MG Performed By: #### L 100.0100, L500.4050, L501.5200, L503.6620, L500.4100, L501.9910 ####[facility] [address] [place], [address] Sodium [Moles/Vol] 139 mmol/L Normal 136-145 [facility] Comment on above: Order Comment: DR. Cruz CULLEN ORDERED PSA,CMP,LIPIDDR.JAMES ORDERED BTNP,CBCD,CMP,MG Performed By: #### L 100.0100, L500.4050, L501.5200, L503.6620, L500.4100, L501.9910 ####[facility] [address] [place], [address] T PROT 6.9 g/dL Normal 6.4-8.2 [facility] Comment on above: Order Comment: DR. Cruz CULLEN ORDERED PSA,CMP,LIPIDDR.JAMES ORDERED BTNP,CBCD,CMP,MG Performed By: #### L 100.0100, L500.4050, L501.5200, L503.6620, L500.4100, L501.9910 ####[facility] [address] [facility] [address] [place], [address] Urea nitrogen [Mass/Vol] 30 mg/dL High 7-18 [facility] Comment on above: Order Comment: DR. Cruz CULLEN ORDERED PSA,CMP,LIPIDDR.JAMES ORDERED BTNP,CBCD,CMP,MG Performed By: #### L 100.0100, L500.4050, L501.5200, L503.6620, L500.4100, L501.9910 ####[facility] [address] [place], [address] Lipid Profileon 07-28-2024 Cholesterol [Mass/Vol] 136 mg/dL Normal 200 [facility] Comment on above: Order Comment: DR. Cruz CULLEN ORDERED PSA,CMP,LIPIDDR.JAMES ORDERED BTNP,CBCD,CMP,MG Result Comment: <200 mg/dL Desirable 200-240 mg/dL Borderline >240 mg/dL High Risk Performed By: #### L 100.0100, L500.4050, L501.5200, L503.6620, L500.4100, L501.9910 ####[facility] [address] [place], [address] Cholesterol in HDL [Mass/Vol] 52 mg/dL Normal [facility] Comment on above: Order Comment: DR. Cruz CULLEN ORDERED PSA,CMP,LIPIDDR.JAMES ORDERED BTNP,CBCD,CMP,MG Result Comment: The drugs N-Acetylcysteine and Metamizole may falsely depress this assay. Reference Range HDL <40 mg/dL Low HDL Cholesterol HDL >or= 60 mg/dL High HDL Cholesterol Performed By: #### L 100.0100, L500.4050, L501.5200, L503.6620, L500.4100, L501.9910 ####[facility] [address] [place], [address] Cholesterol in LDL [Mass/Vol] 49 mg/dL Normal 0-130 [facility] Comment on above: Order Comment: DR. Cruz CULLEN ORDERED PSA,CMP,LIPIDDR.JAMES ORDERED BTNP,CBCD,CMP,MG Performed By: #### L 100.0100, L500.4050, L501.5200, L503.6620, L500.4100, L501.9910 ####[facility] [address] [place], [address] Cholesterol in VLDL [Mass/Vol] 35 mg/dL Normal 5-40 [facility] Comment on above: Order Comment: DR. Cruz CULLEN ORDERED PSA,CMP,LIPIDDR.JAMES ORDERED BTNP,CBCD,CMP,MG Performed By: #### L 100.0100, L500.4050, L501.5200, L503.6620, L500.4100, L501.9910 ####[facility] [address] [place], [address] Triglyceride [Mass/Vol] 177 mg/dL Normal [facility] Comment on above: Order Comment: DR. Cruz CULLEN ORDERED PSA,CMP,LIPIDDR.JAMES ORDERED BTNP,CBCD,CMP,MG Result Comment: The drugs N-Acetylcysteine and Metamizole may falsely depress this assay. Serum Triglycerides Reference Interval Normal <150 mg/dL Borderline high 150 - 199 mg/dL High 200 - 499 mg/dL Very High > or = 500 mg/dL Performed By: #### L 100.0100, L500.4050, L501.5200, L503.6620, L500.4100, L501.9910 ####[facility] [address] [place], [place], [id number] Magnesiumon 07-28-2024 Magnesium [Mass/Vol] 2.0 mg/dL Normal 1.6-2.6 [facility] Comment on above: Order Comment: DR. Cruz CULLEN ORDERED PSA,CMP,LIPIDDR.JAMES ORDERED BTNP,CBCD,CMP,MG Performed By: #### L 100.0100, L500.4050, L501.5200, L503.6620, L500.4100, L501.9910 ####[facility] [address] [place], [place], [phone] PSA,Total - Annual Screenon 07-28-2024 PSA,TOT SCREEN 2.20 ng/mL Normal 0.00-4.00 [facility] Comment on above: Order Comment: DR. Cruz CULLEN ORDERED PSA,CMP,LIPIDDR.JAMES ORDERED BTNP,CBCD,CMP,MG Result Comment: This test was performed using the TPSA assay method for the [employer] chemistry system. Values obtained with different assay methods cannot be used interchangably. When changing PSA assays in the course of monitoring a patient, additional sequential testing should be carried out to confirm baseline values. Performed By: #### L 100.0100, L500.4050, L501.5200, L503.6620, L500.4100, L501.9910 ####[facility] [address] [place], [address] Cardiology Visit Reporton Cardiology Visit Report [facility] [address] [place] [address] OFFICE VISIT Date of Service: 07/20/24 MR#: [id number] Acct: [id number] Name: MOO HOROWITZ Rep #: [id number] : 1945 Provider: HONEY bey Age/Sex: 79/M Location: [facility] Status: Signed HPI HPI History of Present Illness Details: MOO HOROWITZ, is a 79 M who presents to the office today for a follow-up visit. He is a gentleman with a history of hypertension, paroxysmal atrial fibrillation/flutter, and bradycardia Mobitz type II heart block status post biventricular pacemaker implantation placed in June 2015 while visiting in [place]. the patient's ejection fraction at time of initial implant was 40% it was felt to be tachycardia mediated years by the old notes from [place]. Subsequently the patient had an echocardiogram done in January 2022 which showed improvement in his ejection fraction of 55%. He acknowledges indigestion discomfort. He states this is once in a great while and unchanged from previous. He notes this with meals and activity. This is located epigastric area. This has been ongoing for year. This is not worsening. This improves with antacid medications. He denies palpitations. He acknowledges occasional bilateral lower extremity edema. He denies claudication. He acknowledges shortness with activity when carrying something upstairs. This not new or worsening. He denies shortness of breath at rest, orthopnea, cough, or PND. He denies lightheadedness, dizziness, near-syncope, or syncope. He denies fatigue. His constipation has resolved. Intake Vital Signs 01/14/24 13:28 07/20/24 10:22 07/20/24 10:37 Height 5 ft 8 in 5 ft 8 in 5 ft 8 in Weight: 201 lb 201 lb BMI 30.5 30.5 BP 106/64 Blood Pressure Location Lt brachial Position Sitting Respiration 16 Pulse 74 Pulse Source NIBP Intake Visit Reasons: 6 M FU/ESTEFANÍA @ 10 [employer] Required: No Is patient in pain?: No Allergies diltiazem Adverse Reaction (Intermediate, Verified 07/20/24 10:27) Facial flushing and fatigue carvedilol (From Coreg) Adverse Reaction (Verified 07/20/24 10:27) face tingling Medications ???Medication ???Instructions ???Recorded ???Confirmed ???Type alprazolam 0.5 mg tablet 0.5 mg PO QHS anxiety 12/07/15 07/20/24 History meloxicam 15 mg tablet 15 mg PO DAILY 12/25/21 07/20/24 History acetaminophen 500 mg tablet 1,000 mg PO DAILY 12/25/22 07/20/24 History (Tylenol Extra Strength) ipratropium bromide 21 mcg (0.03 2 spray intranasal DAILY 09/23/23 07/20/24 History %) nasal spray metoprolol succinate 50 mg 50 mg PO DAILY #30 tabs 01/18/24 07/20/24 Rx tablet,extended release 24 hr apixaban 5 mg tablet (Eliquis) 5 mg PO BID #60 tabs 06/02/24 07/20/24 Rx cyclobenzaprine 5 mg tablet 5 mg PO QDAY PRN muscle spasm 07/20/24 07/20/24 History losartan 25 mg tablet 25 mg PO .COMPLEX 07/20/24 History losartan 50 mg tablet 50 mg PO .COMPLEX 07/20/24 History rosuvastatin 20 mg tablet 20 mg PO QDAY 07/20/24 History Ejection fraction %: 55 Have you fallen in the past year?: No PFSH Medical History Wears glasses Excessive bleeding Arthritis Difficulty swallowing Non-smoker CPAP (continuous positive airway pressure) dependence History of echocardiogram History of stress test Cardiology follow-up encounter Non-sustained ventricular tachycardia Left bundle branch block (LBBB) Raynaud disease Essential (primary) hypertension Over weight LORI (obstructive sleep apnea) 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 Sinus bradycardia Mobitz type II atrioventricular block Cardiomyopathy in disease classified elsewhere Surgical History History of appendectomy History of colonoscopy Biventricular cardiac pacemaker in situ (07/13/15) History of herniorrhaphy History of carpal tunnel surgery of right wrist History of esophagogastroduodenoscopy (EGD) Family History Mother CAD (coronary artery disease) Father CAD (coronary artery disease) Brother Polycystic kidney disease Social History Smoking Status: Never smoker alcohol intake: never substance use type: does not use caffeine: Yes Type: carbonated beverages and tea additional social history: Denies daily use of aspirin or ibuprofen. ROS Const Const: Negative for fatigue or weakness ENT ENT: Negative for dizziness Cardio Chest Pain: Yes (indigestion) Frequency: other (Once in a great while-unchanged from previous) Character: other (Indigestion) Onset: with meals and other (Activity) Location: epigastric Palpitations: No (more content not included)... Normal [facility] Pacemaker Checkon 07-20-2024 Pacemaker Check [facility] [address] [place] [address] Pacemaker Check Date of Service: 07/20/24 1449 MR#: [id number] Acct: [id number] Name: MOO HOROWITZ Rep #: [id number] : 1945 From: Sharon Gunn Age/Sex: 79/M Location: [facility] Status: Signed Billing Codes PM Device Codes: 51934 PM Dev Prog Eval, Multi Assessment and Plan Assessment and Plan (1) Non-sustained ventricular tachycardia: Status: Acute Comment: per device check 07/03/21, 07/20/2024 (2) Biventricular cardiac pacemaker in situ: Status: Chronic (3) Left bundle branch block (LBBB): Status: Chronic (4) Mobitz type II atrioventricular block: Status: Chronic 07/20/24 1450 Date Sharon Damonignamira Signature: Date (if applicable) CC: Normal [facility] Basic Metabolic Profile (BMP )on 05-23-2024 BUN/CRE 17.3 RATIO Normal 10-20 [facility] Comment on above: Performed By: #### L 500.2500 ####[facility] [address] [place], [address] CA,Total 9.3 mg/dL Normal 8.5-10.1 [facility] Comment on above: Performed By: #### L 500.2500 ####[facility] [address] [place], [address] Chloride [Moles/Vol] 106 mmol/L Normal 98-107 [facility] Comment on above: Performed By: #### L 500.2500 ####[facility] [address] [place], [address] CO2 [Moles/Vol] 26.0 mmol/L Normal 21.0-32.0 [facility] Comment on above: Performed By: #### L 500.2500 ####[facility] [address] [place], [address] Creatinine [Mass/Vol] 0.98 mg/dL Normal 0.70-1.30 [facility] Comment on above: Result Comment: The validity of the calculated GFR GFRAA in patients over 70 years has not been determined. Clinical correlation is essential. Performed By: #### L 500.2500 ####[facility] [address] [place], [address] EST GFR - AA 95 mL/min Normal >60 [facility] Comment on above: Result Comment: Afri can Iranian GFR Calc Performed By: #### L 500.2500 ####[facility] [address] [place], [address] GAP 6 Normal 5-15 [facility] Comment on above: Performed By: #### L 500.2500 ####[facility] [address] [place], [address] GFR/1.73 sq M.predicted among non-blacks MDRD (S/P/Bld) [Vol rate/Area] 78 mL/min/{1.73_m2} Normal >60 [facility] Comment on above: Result Comment: Non- GFR Calc Performed By: #### L 500.2500 ####[facility] [address] [place], [address] Glucose [Mass/Vol] 90 mg/dL Normal 74-106 [facility] Comment on above: Performed By: #### L 500.2500 ####[facility] [address] [place], [address] Potassium [Moles/Vol] 4.7 mmol/L Normal 3.5-5.1 [facility] Comment on above: Performed By: #### L 500.2500 ####[facility] [address] [place], [address] Sodium [Moles/Vol] 138 mmol/L Normal 136-145 [facility] Comment on above: Performed By: #### L 500.2500 ####[facility] [address] [place], [address] Urea nitrogen [Mass/Vol] 17 mg/dL Normal 7-18 [facility] Comment on above: Performed By: #### L 500.2500 ####[facility] [address] [place], [address] Absolute lymphocyte countOrd ered By: Joaquin Ramirez on 11-30-2023 Lymphocytes Auto (Unsp spec) [#/Vol] 1.33 10*3/uL 0.83-4.51 [facility] Automated lymphocyte count a s percentage of total leukocytesOrdered By: Joaquin Ramirez on 11-30-2023 Lymphocytes/100 WBC Auto (Unsp spec) 22.2 % 19-41 [facility] Basophil percentageOrdered B y: Joaquin Ramirez on 11-30-2023 Basophils/100 WBC (Bld) 0.8 % 0-1 [facility] Bilirubin [Mass/Vol] 0.50 mg/dL 0.20-1.00 [facility] Comment on above: For patients on eltr ombopag therapy, use of Dimension [place] TBIL is not recommended. Chloride [Moles/Vol] 106 mmol/L 98-107 [facility] Eosinophils/100 WBC (Bld) 1.8 % 0-5 [facility] Glucose [Mass/Vol] 84 mg/dL 74-106 [facility] Hemoglobin (Bld) [Mass/Vol] 11.9 g/dL 13.0-16.5 [facility] Monocytes/100 WBC (Bld) 12.5 % 0-10 [facility] Neutrophils (Bld) [#/Vol] 3.7 10*3/uL 2.0-7.7 [facility] Neutrophils/100 WBC (Bld) 62.5 % 47-70 [facility] Potassium [Moles/Vol] 4.2 mmol/L 3.5-5.1 [facility] Protein [Mass/Vol] 7.0 g/dL 6.4-8.2 [facility] Sodium [Moles/Vol] 142 mmol/L 136-145 [facility] WBC (Bld) [#/Vol] 6.0 10*3/uL 4.4-11.0 [facility] Determination of erythrocyte mean corpuscular volume (MCV)Ordered By: Joaquin Ramirez on 11-30-2023 MCV (RBC) [Entitic vol] 96.6 fL 80-94 [facility] Erythrocyte distribution wid th ratioOrdered By: Joaquin Ramirez on 11-30-2023 Erythrocyte distribution width (RBC) [Ratio] 13.7 % 11.6-14.6 [facility] Erythrocyte distribution wid th standard deviationOrdered By: Joaquin Ramirez on 11-30-2023 Erythrocyte distribution width (RBC) [Entitic vol] 49.0 fL 35.1-43.9 [facility] Hematocrit Auto (Bld) [Volum e fraction]Ordered By: Joaquin Ramirez on 11-30-2023 Hematocrit (Bld) [Volume fraction] 37.5 % 40-54 [facility] Immature granulocytes/100 WB C Auto (Bld)Ordered By: Joaquin Ramirez on 11-30-2023 Immature granulocytes/100 WBC (Bld) 0.200 % 0.0-0.9 [facility] Comment on above: IG% - Immature Granu locytes (promyelocytes, myelocytes and metamyelocytes) > 1% indicates that a LEFT SHIFT is Present. Laboratory - Chemistry and C hemistry - challengeOrdered By: Joaquin Ramirez on 11-30-2023 Albumin/Globulin [Mass ratio] 1.1 {ratio} 0.9-2.4 [facility] ALP [Catalytic activity/Vol] 90 U/L 45-117 [facility] ALT [Catalytic activity/Vol] 25 U/L 16-61 [facility] CO2 [Moles/Vol] 30.0 mmol/L 21.0-32.0 [facility] Globulin (S) [Mass/Vol] 3.4 g/dL 2.2-4.2 [facility] Magnesium [Mass/Vol] 2.3 mg/dL 1.6-2.6 [facility] Urea nitrogen/Creatinine [Mass ratio] 22.4 mg/mg 10-20 [facility] Laboratory - Hematology and Cell countsOrdered By: Joaquin Ramirez on 11-30-2023 MCH (RBC) [Entitic mass] 30.7 pg 27.0-32.0 [facility] MCHC (RBC) [Mass/Vol] 31.7 g/dL 32-36 [facility] Nucleated RBC/100 WBC (Bld) [Ratio] 0 % 0-5 [facility] Platelet mean volume (Bld) [Entitic vol] 11.7 fL 6.2-12.0 [facility] Platelets (Bld) [#/Vol] 225 10*3/uL 150-450 [facility] No Panel InformationOrdered By: Joaquin Ramirez on 11-30-2023 Estimated GFR (MDRD) Amer 100 mL/min >60 [facility] Comment on above: GFR Calc Estimated GFR (MDRD) Non-Af Amer 83 mL/min >60 [facility] Comment on above: Non- GFR Calc RBC Auto (Bld) [#/Vol]Ordere d By: Joaquin Ramirez on 11-30-2023 RBC (Bld) [#/Vol] 3.88 10*6/uL 4.6-6.2 [facility] Serum or plasma calcium annette urement (mass/volume)Ordered By: Joaquin Ramirez on 11-30-2023 Calcium [Mass/Vol] 8.7 mg/dL 8.5-10.1 [facility] Serum or plasma creatinine m easurement (mass/volume)Ordered By: Joaquin Ramirez on 11-30-2023 Creatinine [Mass/Vol] 0.94 mg/dL 0.70-1.30 [facility] Comment on above: The validity of the calculated GFR & GFRAA in patients over 70 years has not been determined. Clinical correlation is essential. Serum or plasma thyroid stim ulating hormone (TSH) measurement (units/volume)Ordered By: Joaquin Ramirez on 11-30-2023 TSH Qn 1.72 uIU/mL 0.358-3.74 [facility] Serum or plasma urea nitroge n measurement (mass/volume)Ordered By: Joaquin Ramirez on 11-30-2023 Urea nitrogen [Mass/Vol] 21 mg/dL 7-18 [facility] Thin prep Papanicolaou smear with manual screeningOrdered By: Joaquin Ramirez on 11-30-2023 Thin prep Papanicolaou smear with manual screening 3.6 g/dL 3.2-5.0 [facility] Thin prep Papanicolaou smear with manual screening 27 U/L 15-37 [facility] Thin prep Papanicolaou smear with manual screening 6 5-15 [facility] Thin prep Papanicolaou smear with manual screening 0.98 ng/dL 0.76-1.46 [facility] Basophil percentageOrdered B y: Joaquin Ramirez on 08-17-2023 Chloride [Moles/Vol] 108 mmol/L 98-107 [facility] Glucose [Mass/Vol] 96 mg/dL 74-106 [facility] Potassium [Moles/Vol] 4.4 mmol/L 3.5-5.1 [facility] Sodium [Moles/Vol] 140 mmol/L 136-145 [facility] WBC (Bld) [#/Vol] 6.2 10*3/uL 4.4-11.0 [facility] Blood erythrocytes count (nu mber/volume)Ordered By: Joaquin Ramirez on 08-17-2023 RBC (Bld) [#/Vol] 4.00 10*6/uL 4.6-6.2 [facility] Blood hemoglobin measurement (mass/volume)Ordered By: Joaquin Ramirez on 08-17-2023 Hemoglobin (Bld) [Mass/Vol] 12.4 g/dL 13.0-16.5 [facility] Blood platelet mean volumeOr dered By: Joaquin Ramirez on 08-17-2023 Platelet mean volume (Bld) [Entitic vol] 10.8 fL 6.2-12.0 [facility] Determination of erythrocyte mean corpuscular volume (MCV)Ordered By: Joaquin Ramirez on 08-17-2023 MCV (RBC) [Entitic vol] 97.5 fL 80-94 [facility] Hematocrit Auto (Bld) [Volum e fraction]Ordered By: Joaquin Ramirez on 08-17-2023 Hematocrit (Bld) [Volume fraction] 39.0 % 40-54 [facility] Laboratory - Chemistry and C hemistry - challengeOrdered By: Joaquin Ramirez on 08-17-2023 CO2 [Moles/Vol] 29.0 mmol/L 21.0-32.0 [facility] Urea nitrogen/Creatinine [Mass ratio] 23.8 mg/mg 10-20 [facility] Laboratory - Hematology and Cell countsOrdered By: Joaquin Ramirez on 08-17-2023 Erythrocyte distribution width (RBC) [Entitic vol] 49.5 fL 35.1-43.9 [facility] Erythrocyte distribution width (RBC) [Ratio] 13.7 % 11.6-14.6 [facility] MCH (RBC) [Entitic mass] 31.0 pg 27.0-32.0 [facility] MCHC Auto (RBC) [Mass/Vol]Or dered By: Joaquin Ramirez on 08-17-2023 MCHC (RBC) [Mass/Vol] 31.8 g/dL 32-36 [facility] No Panel InformationOrdered By: Joaquin Ramirez on 08-17-2023 Estimated Creatinine Clearance Calc 68.01 ml/min [facility] Estimated GFR (MDRD) Amer 107 mL/min >60 [facility] Comment on above: GFR Calc Estimated GFR (MDRD) Non-Af Amer 89 mL/min >60 [facility] Comment on above: Non- GFR Calc Platelets bldOrdered By: Maxwell Ramirez on 08-17-2023 Platelets (Bld) [#/Vol] 229 10*3/uL 150-450 [facility] Serum or plasma calcium annette urement (mass/volume)Ordered By: Joaquin Ramirez on 08-17-2023 Calcium [Mass/Vol] 8.9 mg/dL 8.5-10.1 [facility] Serum or plasma creatinine m easurement (mass/volume)Ordered By: Joaquin Ramirez on 08-17-2023 Creatinine [Mass/Vol] 0.88 mg/dL 0.70-1.30 [facility] Comment on above: The validity of the calculated GFR & GFRAA in patients over 70 years has not been determined. Clinical correlation is essential. Serum or plasma urea nitroge n measurement (mass/volume)Ordered By: Joaquin Ramirez on 08-17-2023 Urea nitrogen [Mass/Vol] 21 mg/dL 7-18 [facility] Thin prep Papanicolaou smear with manual screeningOrdered By: Joaquin Ramirez on 08-17-2023 Thin prep Papanicolaou smear with manual screening 3 5-15 [facility] Basophil percentageOrdered B y: Paul Mac on 07-16-2023 Bilirubin [Mass/Vol] 0.30 mg/dL 0.20-1.00 [facility] Comment on above: For patients on eltr ombopag therapy, use of Dimension [place] TBIL is not recommended. Chloride [Moles/Vol] 107 mmol/L 98-107 [facility] Glucose [Mass/Vol] 85 mg/dL 74-106 [facility] Potassium [Moles/Vol] 4.9 mmol/L 3.5-5.1 [facility] Protein [Mass/Vol] 7.1 g/dL 6.4-8.2 [facility] Sodium [Moles/Vol] 140 mmol/L 136-145 [facility] Laboratory - Chemistry and C hemistry - challengeOrdered By: Paul Mac on 07-16-2023 ALP [Catalytic activity/Vol] 103 U/L 45-117 [facility] ALT [Catalytic activity/Vol] 29 U/L 16-61 [facility] CO2 [Moles/Vol] 29.0 mmol/L 21.0-32.0 [facility] Globulin (S) [Mass/Vol] 3.4 g/dL 2.2-4.2 [facility] Urea nitrogen/Creatinine [Mass ratio] 25.7 mg/mg 10-20 [facility] No Panel InformationOrdered By: Paul Mac on 07-16-2023 Estimated GFR (MDRD) Amer 92 mL/min >60 [facility] Comment on above: GFR Calc Estimated GFR (MDRD) Non-Af Amer 76 mL/min >60 [facility] Comment on above: Non- GFR Calc Serum or plasma albumin annette urement (mass/volume)Ordered By: Paul Mac on 07-16-2023 Albumin [Mass/Vol] 3.7 g/dL 3.2-5.0 [facility] Serum or plasma albumin/glob ulin mass ratioOrdered By: Paul Mac on 07-16-2023 Albumin/Globulin [Mass ratio] 1.1 {ratio} 0.9-2.4 [facility] Serum or plasma calcium annette urement (mass/volume)Ordered By: Paul aMc on 07-16-2023 Calcium [Mass/Vol] 9.3 mg/dL 8.5-10.1 [facility] Serum or plasma creatinine m easurement (mass/volume)Ordered By: Paul Mac on 07-16-2023 Creatinine [Mass/Vol] 1.01 mg/dL 0.70-1.30 [facility] Comment on above: The validity of the calculated GFR & GFRAA in patients over 70 years has not been determined. Clinical correlation is essential. Serum or plasma urea nitroge n measurement (mass/volume)Ordered By: Paul Mac on 07-16-2023 Urea nitrogen [Mass/Vol] 26 mg/dL 7-18 [facility] Thin prep Papanicolaou smear with manual screeningOrdered By: Paul Mac on 07-16-2023 Thin prep Papanicolaou smear with manual screening 21 U/L 15-37 [facility] Thin prep Papanicolaou smear with manual screening 4 5-15 [facility] HIV 1 and HIV-2 antibody ass ay with HIV-1 p24 antigen detectionOrdered By: Jairo Ring on 06-08-2023 HIV 1+2 Ab+HIV1 p24 Ag IA Ql Non-Reactive Nonreactive [facility] No Panel InformationOrdered By: Jairo Ring on 06-08-2023 Hepatitis B Surface Antigen Non-Reactive Nonreactive [facility] Hepatitis C Antibody Non-Reactive Nonreactive [facility] Comment on above: Non Reactive: < 0.8 Equivocal: >/= 0.8 to < 1.0 Reactive: >/= 1.0The CDC recommends that a reactive/equivocal HCV antibody result be followed up by the HCV Nucleic Acid Amplificationtest ([id number]) Basophil percentageOrdered B y: Dr. Mac on 01-14-2023 Chloride [Moles/Vol] 107 mmol/L 98-107 [facility] Cholesterol [Mass/Vol] 202 mg/dL <200 [facility] Comment on above: <200 mg/dL Desirable 200-240 mg/dL Borderline >240 mg/dL High Risk Glucose [Mass/Vol] 71 mg/dL 74-106 [facility] Potassium [Moles/Vol] 4.8 mmol/L 3.5-5.1 [facility] Sodium [Moles/Vol] 141 mmol/L 136-145 [facility] Triglyceride [Mass/Vol] 88 mg/dL <199 [facility] Comment on above: The drugs N-Acetylcy steine and Metamizole may falsely depress this assay.Serum Triglycerides Reference Interval Normal <150 mg/dL Borderline high 150 - 199 mg/dL High 200 - 499 mg/dL Very High > or = 500 mg/dL Laboratory - Chemistry and C hemistry - challengeOrdered By: Dr. Mac on 01-14-2023 CO2 [Moles/Vol] 29.0 mmol/L 21.0-32.0 [facility] Urea nitrogen/Creatinine [Mass ratio] 25.0 mg/mg 10-20 [facility] No Panel InformationOrdered By: Dr. Mac on 01-14-2023 Estimated GFR (MDRD) Amer 98 mL/min >60 [facility] Comment on above: GFR Calc Estimated GFR (MDRD) Non-Af Amer 81 mL/min >60 [facility] Comment on above: Non- GFR Calc Serum or plasma calcium annette urement (mass/volume)Ordered By: Dr. Mac on 05-03-2023 Calcium [Mass/Vol] 9.3 mg/dL 8.5-10.1 [facility] Serum or plasma cholesterol in HDL measurement (mass/volume)Ordered By: Dr. Mac on 01-14-2023 Cholesterol in HDL [Mass/Vol] 61 mg/dL >40 [facility] Comment on above: The drugs N-Acetylcy steine and Metamizole may falsely depress this assay. Reference Range HDL <40 mg/dL Low HDL Cholesterol HDL >or= 60 mg/dL High HDL Cholesterol Serum or plasma cholesterol in VLDL measurement (mass/volume)Ordered By: Dr. Mac on 01-14-2023 Cholesterol in VLDL [Mass/Vol] 18 mg/dL 5-40 [facility] Serum or plasma creatinine m easurement (mass/volume)Ordered By: Dr. Mac on 01-14-2023 Creatinine [Mass/Vol] 0.96 mg/dL 0.70-1.30 [facility] Comment on above: The validity of the calculated GFR & GFRAA in patients over 70 years has not been determined. Clinical correlation is essential. Serum or plasma low density lipoprotein (LDL) cholesterol measurement (mass/volume)Ordered By: Dr. Mac on 01-14-2023 Cholesterol in LDL [Mass/Vol] 123 mg/dL 0-130 [facility] Serum or plasma urea nitroge n measurement (mass/volume)Ordered By: Dr. Mac on 01-14-2023 Urea nitrogen [Mass/Vol] 24 mg/dL 7-18 [facility] Thin prep Papanicolaou smear with manual screeningOrdered By: Dr. Mac on 01-14-2023 Thin prep Papanicolaou smear with manual screening 5 5-15 [facility] Absolute lymphocyte counton 05-28-2022 Lymphocytes Auto (Unsp spec) [#/Vol] 1.26 10*3/uL 0.83-4.51 [facility] Work Phone: Basophil percentageon 2021 Basophils/100 WBC (Bld) 0.8 % 0-1 [facility] Work Phone: Chloride [Moles/Vol] 105 mmol/L 98-107 [facility] Work Phone: Cholesterol [Mass/Vol] 211 mg/dL <200 [facility] Work Phone: Comment on above: <200 mg/dL Desirable 200-240 mg/dL Borderline >240 mg/dL High Risk Eosinophils/100 WBC (Bld) 1.7 % 0-5 [facility] Work Phone: Glucose [Mass/Vol] 75 mg/dL 74-106 [facility] Work Phone: Neutrophils (Bld) [#/Vol] 4.3 10*3/uL 2.0-7.7 [facility] Work Phone: Neutrophils/100 WBC (Bld) 65.6 % 47-70 [facility] Work Phone: Potassium [Moles/Vol] 4.5 mmol/L 3.5-5.1 [facility] Work Phone: Sodium [Moles/Vol] 140 mmol/L 136-145 [facility] Work Phone: Testosterone [Mass/Vol] 677.20 ng/dL [facility] Work Phone: Comment on above: CENTRAL 90% REFERENC E RANGES MALE AGE <50 197.44 - 669.58 ng/dL MALE AGE > or = 50 187.72 - 684.19 ng/dL FEMALE AGE <50 8.38 - 35.01 ng/dL FEMALE AGE > or = 50 <7.00 - 35.92 ng/dL Effective as of 04/09/21 Triglyceride [Mass/Vol] 112 mg/dL <199 [facility] Work Phone: Comment on above: The drugs N-Acetylcy steine and Metamizole may falsely depress this assay.Serum Triglycerides Reference Interval Normal <150 mg/dL Borderline high 150 - 199 mg/dL High 200 - 499 mg/dL Very High > or = 500 mg/dL WBC (Bld) [#/Vol] 6.5 10*3/uL 4.4-11.0 [facility] Work Phone: Blood erythrocytes count (nu mber/volume)on 05-28-2022 RBC (Bld) [#/Vol] 4.17 10*6/uL 4.6-6.2 [facility] Work Phone: Blood hemoglobin measurement (mass/volume)on 05-28-2022 Hemoglobin (Bld) [Mass/Vol] 13.3 g/dL 13.0-16.5 [facility] Work Phone: Blood lymphocytes/100 leukoc yteson 05-28-2022 Lymphocytes/100 WBC (Bld) 19.5 % 19-41 [facility] Work Phone: Blood monocytes/100 leukocyt eson 05-28-2022 Monocytes/100 WBC (Bld) 12.1 % 0-10 [facility] Work Phone: Blood platelet mean volumeon 05-28-2022 Platelet mean volume (Bld) [Entitic vol] 11.5 fL 6.2-12.0 [facility] Work Phone: Determination of erythrocyte mean corpuscular volume (MCV)on 05-28-2022 MCV (RBC) [Entitic vol] 97.6 fL 80-94 [facility] Work Phone: Hematocrit Auto (Bld) [Volum e fraction]on 05-28-2022 Hematocrit (Bld) [Volume fraction] 40.7 % 40-54 [facility] Work Phone: Laboratory - Chemistry and C hemistry - challengeon 05-28-2022 CO2 [Moles/Vol] 31.0 mmol/L 21.0-32.0 [facility] Work Phone: Urea nitrogen/Creatinine [Mass ratio] 22.5 mg/mg 10-20 [facility] Work Phone: Laboratory - Hematology and Cell countson 05-28-2022 Erythrocyte distribution width (RBC) [Entitic vol] 50.0 fL 35.1-43.9 [facility] Work Phone: Erythrocyte distribution width (RBC) [Ratio] 13.9 % 11.6-14.6 [facility] Work Phone: Immature granulocytes/100 WBC (Bld) 0.300 % 0.0-0.9 [facility] Work Phone: Comment on above: IG% - Immature Granu locytes (promyelocytes, myelocytes and metamyelocytes) > 1% indicates that a LEFT SHIFT is Present. MCH (RBC) [Entitic mass] 31.9 pg 27.0-32.0 [facility] Work Phone: Nucleated RBC/100 WBC (Bld) [Ratio] 0 % 0-5 [facility] Work Phone: MCHC Auto (RBC) [Mass/Vol]on 05-28-2022 MCHC (RBC) [Mass/Vol] 32.7 g/dL 32-36 [facility] Work Phone: No Panel Informationon 05-28 Estimated GFR (MDRD) Amer 96 mL/min >60 [facility] Work Phone: Comment on above: GFR Calc Estimated GFR (MDRD) Non-Af Amer 79 mL/min >60 [facility] Work Phone: Comment on above: Non- GFR Calc Thyroid Stimulating Hormone (TSH) 1.63 uIU/mL 0.358-3.74 [facility] Work Phone: Platelets bldon 05-28-2022 Platelets (Bld) [#/Vol] 256 10*3/uL 150-450 [facility] Work Phone: Serum or plasma calcium annette urement (mass/volume)on 05-28-2022 Calcium [Mass/Vol] 9.6 mg/dL 8.5-10.1 [facility] Work Phone: Serum or plasma cholesterol in HDL measurement (mass/volume)on 05-28-2022 Cholesterol in HDL [Mass/Vol] 59 mg/dL >40 [facility] Work Phone: Comment on above: The drugs N-Acetylcy steine and Metamizole may falsely depress this assay. Reference Range HDL <40 mg/dL Low HDL Cholesterol HDL >or= 60 mg/dL High HDL Cholesterol Serum or plasma cholesterol in VLDL measurement (mass/volume)on 05-28-2022 Cholesterol in VLDL [Mass/Vol] 22 mg/dL 5-40 [facility] Work Phone: Serum or plasma creatinine m easurement (mass/volume)on 05-28-2022 Creatinine [Mass/Vol] 0.98 mg/dL 0.70-1.30 [facility] Work Phone: Comment on above: The validity of the calculated GFR & GFRAA in patients over 70 years has not been determined. Clinical correlation is essential. Serum or plasma low density lipoprotein (LDL) cholesterol measurement (mass/volume)on 05-28-2022 Cholesterol in LDL [Mass/Vol] 130 mg/dL 0-130 [facility] Work Phone: Serum or plasma urea nitroge n measurement (mass/volume)on 05-28-2022 Urea nitrogen [Mass/Vol] 22 mg/dL 7-18 [facility] Work Phone: Thin prep Papanicolaou smear with manual screeningon 05-28-2022 Thin prep Papanicolaou smear with manual screening 4 5-15 [facility] Work Phone: CNTHERAPYon 03-10-2022 CNTHERAPY OT/PT/Speech Visit ( PTWS) -- MOO HOROWITZ ([id number]) 1945 M Date Time Provider Department 03/10/22 10:45 AM [facility]OR WEAVER PTWS Date Time Provider Department Center 03/10/2022 10:45 AM [id number], SEAN PTWS [facility] Reason for Visit: PT Progress Note [0016] Primary Visit Diagnosis:Chronic left-sided low back pain with left-sided sciatica [M54.42, G89.29] Allergies As of Date: 03/10/2022 (No Known Allergies) Date Reviewed: 04/08/2019 Reviewed by: Katerine Butler Ma - Fully Assessed Prescriptions as of 03/10/2022 - cholecalciferol (VITAMIN D3) 1,000 unit tab tablet Take 1 tablet by mouth once daily. - pyridoxine, vitamin B6, (VITAMIN B6) 100 mg tablet Take 1 tablet by mouth once daily. - ranitidine (ZANTAC) 150 mg tablet Take 1 tablet by mouth once daily. - tamsulosin ER (FLOMAX) 0.4 mg cap Take 1 capsule by mouth twice daily. - losartan (COZAAR) 25 mg tablet Take 25 mg by mouth once daily. - carvedilol (COREG) 6.25 mg tablet Take 6.25 mg by mouth once daily. - lisinopril (ZESTRIL, PRINIVIL) 10 mg tablet - ALPRAZolam (XANAX) 0.25 mg tablet Take 0.25 mg by mouth as needed. - Methylcellulose, Laxative, (CITRUCEL) 500 mg Tab Take by mouth. - L GASSERI/B BIFIDUM/B LONGUM (PROBIOTIC COLON CARE ORAL) Take by mouth. - Cholecalciferol, Vitamin D3, 10,000 unit ORAL Cap Take by mouth. Take one(1) capsule two(2) times daily. - therapeutic multivitamin ORAL tablet Take by mouth. Takes 1 per day as needed. - aspirin, enteric coated (ECOTRIN LOW STRENGTH) 81 mg ORAL EC tablet Take 1 tablet by mouth once daily. - Saw Wilsons 80 mg ORAL capsule Take by mouth. Takes 2 in the am and 2 in the pm. -- Normal [facility] CNTHERAPYon 03-03-2022 CNTHERAPY OT/PT/Speech Visit ( PTWS) -- MOO HOROWITZ ([id number]) 1945 M Date Time Provider Department 03/03/22 12:15 PM [facility]OR WEAVER Date Time Provider Department Center 03/03/2022 12:15 PM [id number] WEAVER Isabel Oscar Reason for Visit: Physical Therapy [503] Primary Visit Diagnosis:Chronic left-sided low back pain with left-sided sciatica [M54.42, G89.29] Allergies As of Date: 03/03/2022 (No Known Allergies) Date Reviewed: 04/08/2019 Reviewed by: Katerine Butler Ma - Fully Assessed Prescriptions as of 03/03/2022 - cholecalciferol (VITAMIN D3) 1,000 unit tab tablet Take 1 tablet by mouth once daily. - pyridoxine, vitamin B6, (VITAMIN B6) 100 mg tablet Take 1 tablet by mouth once daily. - ranitidine (ZANTAC) 150 mg tablet Take 1 tablet by mouth once daily. - tamsulosin ER (FLOMAX) 0.4 mg cap Take 1 capsule by mouth twice daily. - losartan (COZAAR) 25 mg tablet Take 25 mg by mouth once daily. - carvedilol (COREG) 6.25 mg tablet Take 6.25 mg by mouth once daily. - lisinopril (ZESTRIL, PRINIVIL) 10 mg tablet - ALPRAZolam (XANAX) 0.25 mg tablet Take 0.25 mg by mouth as needed. - Methylcellulose, Laxative, (CITRUCEL) 500 mg Tab Take by mouth. - L GASSERI/B BIFIDUM/B LONGUM (PROBIOTIC COLON CARE ORAL) Take by mouth. - Cholecalciferol, Vitamin D3, 10,000 unit ORAL Cap Take by mouth. Take one(1) capsule two(2) times daily. - therapeutic multivitamin ORAL tablet Take by mouth. Takes 1 per day as needed. - aspirin, enteric coated (ECOTRIN LOW STRENGTH) 81 mg ORAL EC tablet Take 1 tablet by mouth once daily. - Saw [place]ils[place] 80 mg ORAL capsule Take by mouth. Takes 2 in the am and 2 in the pm. -- Normal [facility] CNTHERAPYon 02-13-2022 CNTHERAPY OT/PT/Speech Visit ( PTWS) -- MOO HOROWITZ ([id number]) 1945 M Date Time Provider Department 02/13/22 10:00 AM CONOR WEAVER PTFRANSISCO Date Time Provider Department Center 02/13/2022 10:00 AM [id number], SEAN PTFRANSISCO [facility] Reason for Visit: PT Eval [747] Primary Visit Diagnosis:Chronic left-sided low back pain with left-sided sciatica [M54.42, G89.29] Allergies As of Date: 02/13/2022 (No Known Allergies) Date Reviewed: 04/08/2019 Reviewed by: Katerine Butler Ma - Fully Assessed Prescriptions as of 02/13/2022 - cholecalciferol (VITAMIN D3) 1,000 unit tab tablet Take 1 tablet by mouth once daily. - pyridoxine, vitamin B6, (VITAMIN B6) 100 mg tablet Take 1 tablet by mouth once daily. - ranitidine (ZANTAC) 150 mg tablet Take 1 tablet by mouth once daily. - tamsulosin ER (FLOMAX) 0.4 mg cap Take 1 capsule by mouth twice daily. - losartan (COZAAR) 25 mg tablet Take 25 mg by mouth once daily. - carvedilol (COREG) 6.25 mg tablet Take 6.25 mg by mouth once daily. - lisinopril (ZESTRIL, PRINIVIL) 10 mg tablet - ALPRAZolam (XANAX) 0.25 mg tablet Take 0.25 mg by mouth as needed. - Methylcellulose, Laxative, (CITRUCEL) 500 mg Tab Take by mouth. - L GASSERI/B BIFIDUM/B LONGUM (PROBIOTIC COLON CARE ORAL) Take by mouth. - Cholecalciferol, Vitamin D3, 10,000 unit ORAL Cap Take by mouth. Take one(1) capsule two(2) times daily. - therapeutic multivitamin ORAL tablet Take by mouth. Takes 1 per day as needed. - aspirin, enteric coated (ECOTRIN LOW STRENGTH) 81 mg ORAL EC tablet Take 1 tablet by mouth once daily. - Saw Wilsons 80 mg ORAL capsule Take by mouth. Takes 2 in the am and 2 in the pm. -- Letter Text [facility] SARS-CoV-2,INFLUENZA A/B NUC LEIC ACID TESTon 01-23-[address] [facility] Comment on above: Result Comment: This test has been authorized by FDA under an EUA for use by CLIA Certified Moderate and High-Complexity laboratories and Point of Care (POC), i.e., in patient care settings operating under a CLIA Certificate of Waiver, Certificate of Compliance, or Certificate of Accreditation. This test has been authorized only for the simultaneous qualitative detection and differentiation of nucleic acid from SARS-CoV-2, influenza A virus, and influenza B virus and not for any other viruses or pathogens. This test is only authorized for the duration of the declaration that circumstances exist justifying the authorization of emergency use of in vitro diagnostic tests for the detection and/or diagnosis of COVID-19, unless the authorization is terminated or revoked sooner. Performed at [facility] [address] [facility] [address] FLU A by PCR Negative [facility] FLU B by PCR Negative [facility] SARS-CoV-2 (COVID-19) RNA KATIE+probe Ql (Unsp spec) Negative Normal NEG [facility] Bilirubin Test strip Ql (U)o n 01-17-2022 Bilirubin Ql (U) Negative Negative [facility] Work Phone: Ketones Test strip Ql (U)on 01-17-2022 Ketones Ql (U) Negative Negative [facility] Work Phone: Nitrite Test strip Ql (U)on 01-17-2022 Nitrite Ql (U) Negative Negative [facility] Work Phone: Protein Test strip Ql (U)on 01-17-2022 Protein Ql (U) Negative Negative [facility] Work Phone: Urine blood detectionon RBC Ql (U) Negative Negative [facility] Work Phone: Urine clarityon 01-17-2022 Clarity (U) Clear Clear [facility] Work Phone: Urine color determinationon 01-17-2022 Color (U) Yellow Yellow [facility] Work Phone: Urine glucose detectionon Glucose Ql (U) Normal mg/dl Normal [facility] Work Phone: Urine leukocyte esterase det ection by dipstickon 01-17-2022 Leukocyte esterase Test strip Ql (U) Negative Negative [facility] Work Phone: Urine pHon 01-17-2022 pH (U) 6.0 [pH] [facility] Work Phone: Urine specific gravity measu rementon 01-17-2022 Specific gravity (U) [Rel density] 1.020 [facility] Work Phone: Urobilinogen Auto test strip Ql (U)on 01-17-2022 Urobilinogen Ql (U) Normal mg/dl Normal [facility] Work Phone: Absolute lymphocyte counton 01-15-2022 Lymphocytes Auto (Unsp spec) [#/Vol] 1.38 10*3/uL 0.83-4.51 [facility] Work Phone: Basophil percentageon 05-04- 2022 Basophils/100 WBC (Bld) 0.6 % 0-1 [facility] Work Phone: Chloride [Moles/Vol] 105 mmol/L 98-107 [facility]: Eosinophils/100 WBC (Bld) 1.7 % 0-5 [facility] Work Phone: Glucose [Mass/Vol] 85 mg/dL 74-106 [facility] Work Phone: Neutrophils (Bld) [#/Vol] 4.2 10*3/uL 2.0-7.7 [facility] Work Phone: Neutrophils/100 WBC (Bld) 65.0 % 47-70 [facility] Work Phone: Potassium [Moles/Vol] 4.4 mmol/L 3.5-5.1 [facility] Work Phone: Sodium [Moles/Vol] 139 mmol/L 136-145 [facility] Work Phone: WBC (Bld) [#/Vol] 6.4 10*3/uL 4.4-11.0 [facility] Work Phone: [phone] Blood erythrocytes count (nu mber/volume)on 01-15-2022 RBC (Bld) [#/Vol] 4.19 10*6/uL 4.6-6.2 [facility] Work Phone: Blood hemoglobin measurement (mass/volume)on 01-15-2022 Hemoglobin (Bld) [Mass/Vol] 13.4 g/dL 13.0-16.5 [facility] Work Phone: Blood lymphocytes/100 leukoc yteson 01-15-2022 Lymphocytes/100 WBC (Bld) 21.5 % 19-41 [facility] Work Phone: Blood monocytes/100 leukocyt eson 01-15-2022 Monocytes/100 WBC (Bld) 10.9 % 0-10 [facility] Work Phone: [phone] Blood platelet mean volumeon 01-15-2022 Platelet mean volume (Bld) [Entitic vol] 11.6 fL 6.2-12.0 [facility] Work Phone: Determination of erythrocyte mean corpuscular volume (MCV)on 01-15-2022 MCV (RBC) [Entitic vol] 97.1 fL 80-94 [facility] Work Phone: Hematocrit Auto (Bld) [Volum e fraction]on 01-15-2022 Hematocrit (Bld) [Volume fraction] 40.7 % 40-54 [facility] Work Phone: INR in Blood by Coagulation assayon 01-15-2022 INR Coag (Bld) [Relative time] 1.1 {INR} [facility] Work Phone: Laboratory - Chemistry and C hemistry - challengeon 01-15-2022 CO2 [Moles/Vol] 29.0 mmol/L 21.0-32.0 [facility] Work Phone: Urea nitrogen/Creatinine [Mass ratio] 23.1 mg/mg 10-20 [facility] Work Phone: Laboratory - Coagulationon 0 01-15-2022 aPTT Coag (Bld) [Time] 27.4 s 24.1-36.2 [facility] Work Phone: PT Coag (PPP) [Time] 13.9 s 11.7-14.9 [facility] Work Phone: Laboratory - Hematology and Cell countson 01-15-2022 Erythrocyte distribution width (RBC) [Entitic vol] 46.4 fL 35.1-43.9 [facility] Work Phone: Erythrocyte distribution width (RBC) [Ratio] 13.1 % 11.6-14.6 [facility] Work Phone: Immature granulocytes/100 WBC (Bld) 0.300 % 0.0-0.9 [facility] Work Phone: Comment on above: IG% - Immature Granu locytes (promyelocytes, myelocytes and metamyelocytes) > 1% indicates that a LEFT SHIFT is Present. MCH (RBC) [Entitic mass] 32.0 pg 27.0-32.0 [facility] Work Phone: Nucleated RBC/100 WBC (Bld) [Ratio] 0 % 0-5 [facility] Work Phone: MCHC Auto (RBC) [Mass/Vol]on 01-15-2022 MCHC (RBC) [Mass/Vol] 32.9 g/dL 32-36 [facility] Work Phone: No Panel Informationon 01-15 Estimated GFR (MDRD) Amer 111 mL/min >60 [facility] Work Phone: Comment on above: GFR Calc Estimated GFR (MDRD) Non-Af Amer 91 mL/min >60 [facility] Work Phone: Comment on above: Non- GFR Calc Platelets bldon 01-15-2022 Platelets (Bld) [#/Vol] 249 10*3/uL 150-450 [facility] Work Phone: Serum or plasma calcium annette urement (mass/volume)on 01-15-2022 Calcium [Mass/Vol] 8.7 mg/dL 8.5-10.1 [facility] Work Phone: Serum or plasma creatinine m easurement (mass/volume)on 01-15-2022 Creatinine [Mass/Vol] 0.86 mg/dL 0.70-1.30 [facility] Work Phone: Comment on above: The validity of the calculated GFR & GFRAA in patients over 70 years has not been determined. Clinical correlation is essential. Serum or plasma urea nitroge n measurement (mass/volume)on 01-15-2022 Urea nitrogen [Mass/Vol] 20 mg/dL 7-18 [facility] Work Phone: Thin prep Papanicolaou smear with manual screeningon 01-15-2022 Thin prep Papanicolaou smear with manual screening 5 5-15 [facility] Work Phone: Basophil percentageon 2021 Bilirubin [Mass/Vol] 0.60 mg/dL 0.20-1.00 [facility] Work Phone: Comment on above: For patients on eltr ombopag therapy, use of Dimension [place] TBIL is not recommended. Chloride [Moles/Vol] 105 mmol/L 98-107 [facility] Work Phone: Glucose [Mass/Vol] 93 mg/dL 74-106 [facility] Work Phone: Potassium [Moles/Vol] 4.5 mmol/L 3.5-5.1 [facility] Work Phone: Protein [Mass/Vol] 6.7 g/dL 6.4-8.2 [facility] Work Phone: Sodium [Moles/Vol] 139 mmol/L 136-145 [facility] Work Phone: Laboratory - Chemistry and C hemistry - challengeon 11-13-2021 ALP [Catalytic activity/Vol] 74 U/L 45-117 [facility] Work Phone: ALT [Catalytic activity/Vol] 22 U/L 16-61 [facility] Work Phone: CO2 [Moles/Vol] 27.0 mmol/L 21.0-32.0 [facility] Work Phone: Globulin (S) [Mass/Vol] 3.0 g/dL 2.2-4.2 [facility] Work Phone: Urea nitrogen/Creatinine [Mass ratio] 23.5 mg/mg 10-20 [facility] Work Phone: No Panel Informationon 11-13 Estimated GFR (MDRD) Amer 113 mL/min >60 [facility] Work Phone: Comment on above: GFR Calc Estimated GFR (MDRD) Non-Af Amer 93 mL/min >60 [facility] Work Phone: Comment on above: Non- GFR Calc Prostate Specific Antigen Screen 1.04 ng/mL 0.00-4.00 [facility] Work Phone: Comment on above: This test was perfor med using the TPSA assay method for [employer] chemistry system. Values obtained with differentassay methods cannot be used interchangably.When changing PSA assays in the course of monitoring apatient, additional sequential testing should be carriedout to confirm baseline values. Serum or plasma albumin annette urement (mass/volume)on 11-13-2021 Albumin [Mass/Vol] 3.7 g/dL 3.2-5.0 [facility] Work Phone: Serum or plasma albumin/glob ulin mass ratioon 11-13-2021 Albumin/Globulin [Mass ratio] 1.2 {ratio} 0.9-2.4 [facility] Work Phone: Serum or plasma calcium annette urement (mass/volume)on 11-13-2021 Calcium [Mass/Vol] 9.0 mg/dL 8.5-10.1 [facility] Work Phone: Serum or plasma creatinine m easurement (mass/volume)on 11-13-2021 Creatinine [Mass/Vol] 0.85 mg/dL 0.70-1.30 [facility] Work Phone: Comment on above: The validity of the calculated GFR & GFRAA in patients over 70 years has not been determined. Clinical correlation is essential. Serum or plasma urea nitroge n measurement (mass/volume)on 11-13-2021 Urea nitrogen [Mass/Vol] 20 mg/dL 7-18 [facility] Work Phone: Thin prep Papanicolaou smear with manual screeningon 11-13-2021 Thin prep Papanicolaou smear with manual screening 22 U/L 15-37 [facility] Work Phone: Thin prep Papanicolaou smear with manual screening 7 5-15 [facility] Work Phone: Absolute lymphocyte counton 11-11-2021 Lymphocytes Auto (Unsp spec) [#/Vol] 1.08 10*3/uL 0.83-4.51 [facility] Work Phone: Basophil percentageon 2021 Basophils/100 WBC (Bld) 0.4 % 0-1 [facility] Work Phone: [phone] Chloride [Moles/Vol] 106 mmol/L 98-107 [facility] Work Phone: [phone] Eosinophils/100 WBC (Bld) 0.7 % 0-5 [facility] Work Phone: [phone] Glucose [Mass/Vol] 107 mg/dL 74-106 [facility] Work Phone: Comment on above: Fasting Glucose resu lt from 100 to 125 mg/dL suggests IMPAIRED HOMEOSTASIS per A.D.A. criteria. Neutrophils (Bld) [#/Vol] 7.1 10*3/uL 2.0-7.7 [facility] Work Phone: [phone] Neutrophils/100 WBC (Bld) 78.5 % 47-70 [facility] Work Phone: [phone] Potassium [Moles/Vol] 3.5 mmol/L 3.5-5.1 [facility] Work Phone: Sodium [Moles/Vol] 138 mmol/L 136-145 [facility] Work Phone: [phone] WBC (Bld) [#/Vol] 9.0 10*3/uL 4.4-11.0 [facility] Work Phone: Basophil percentage 0 SEEN /hpf [facility] Work Phone: [phone] Bilirubin Test strip Ql (U)o n 11-11-2021 Bilirubin Ql (U) Negative Negative [facility] Work Phone: [phone] Blood erythrocytes count (nu mber/volume)on 11-11-2021 RBC (Bld) [#/Vol] 4.42 10*6/uL 4.6-6.2 [facility] Work Phone: [phone] Blood hemoglobin measurement (mass/volume)on 11-11-2021 Hemoglobin (Bld) [Mass/Vol] 14.1 g/dL 13.0-16.5 [facility] Work Phone: [phone] Blood lymphocytes/100 leukoc yteson 11-11-2021 Lymphocytes/100 WBC (Bld) 12.0 % 19-41 [facility] Work Phone: Blood monocytes/100 leukocyt eson 11-11-2021 Monocytes/100 WBC (Bld) 8.1 % 0-10 [facility] Work Phone: Blood platelet mean volumeon 11-11-2021 Platelet mean volume (Bld) [Entitic vol] 10.9 fL 6.2-12.0 [facility] Work Phone: Determination of erythrocyte mean corpuscular volume (MCV)on 11-11-2021 MCV (RBC) [Entitic vol] 95.7 fL 80-94 [facility] Work Phone: Hematocrit Auto (Bld) [Volum e fraction]on 11-11-2021 Hematocrit (Bld) [Volume fraction] 42.3 % 40-54 [facility] Work Phone: Ketones Test strip Ql (U)on 11-11-2021 Ketones Ql (U) Negative Negative [facility] Work Phone: Laboratory - Chemistry and C hemistry - challengeon 11-11-2021 CO2 [Moles/Vol] 29.0 mmol/L 21.0-32.0 [facility] Work Phone: Urea nitrogen/Creatinine [Mass ratio] 15.4 mg/mg 10-20 [facility] Work Phone: Laboratory - Hematology and Cell countson 11-11-2021 Erythrocyte distribution width (RBC) [Entitic vol] 48.4 fL 35.1-43.9 [facility] Work Phone: Erythrocyte distribution width (RBC) [Ratio] 13.5 % 11.6-14.6 [facility] Work Phone: Immature granulocytes/100 WBC (Bld) 0.300 % 0.0-0.9 [facility] Work Phone: Comment on above: IG% - Immature Granu locytes (promyelocytes, myelocytes and metamyelocytes) > 1% indicates that a LEFT SHIFT is Present. MCH (RBC) [Entitic mass] 31.9 pg 27.0-32.0 [facility] Work Phone: Nucleated RBC/100 WBC (Bld) [Ratio] 0 % 0-5 [facility] Work Phone: MCHC Auto (RBC) [Mass/Vol]on 11-11-2021 MCHC (RBC) [Mass/Vol] 33.3 g/dL 32-36 [facility] Work Phone: Mucus LM Ql (Urine sed)on Mucus Ql (Urine sed) 2+ /hpf [facility] Work Phone: Nitrite Test strip Ql (U)on 11-11-2021 Nitrite Ql (U) Negative Negative [facility] Work Phone: No Panel Informationon 11-11 Estimated Creatinine Clearance Calc 67.86 ml/min [facility] Work Phone: Estimated GFR (MDRD) Amer 104 mL/min >60 [facility] Work Phone: Comment on above: GFR Calc Estimated GFR (MDRD) Non-Af Amer 86 mL/min >60 [facility] Work Phone: Comment on above: Non- GFR Calc Troponin I High Sensitivity 6 pg/mL 3.0-78.0 [facility] Work Phone: Comment on above: Please Note: New Patience t Units and Gender Specific Reference Ranges. For more information see Policy Stat Procedure [place] High Sensitivity Troponin (TNIH) and attachments. Platelets bldon 11-11-2021 Platelets (Bld) [#/Vol] 206 10*3/uL 150-450 [facility] Work Phone: Protein Test strip Ql (U)on 11-11-2021 Protein Ql (U) 15 mg/dl Negative [facility] Work Phone: Serum or plasma calcium annette urement (mass/volume)on 11-11-2021 Calcium [Mass/Vol] 9.6 mg/dL 8.5-10.1 [facility] Work Phone: Serum or plasma creatinine m easurement (mass/volume)on 11-11-2021 Creatinine [Mass/Vol] 0.91 mg/dL 0.70-1.30 [facility] Work Phone: Comment on above: The validity of the calculated GFR & GFRAA in patients over 70 years has not been determined. Clinical correlation is essential. Serum or plasma urea nitroge n measurement (mass/volume)on 11-11-2021 Urea nitrogen [Mass/Vol] 14 mg/dL 7-18 [facility] Work Phone: Squamous epithelial cells de tection in urine sediment by light microscopyon 11-11-2021 Epithelial cells.squamous LM Ql (Urine sed) 0-5 SEEN /hpf [facility] Work Phone: Thin prep Papanicolaou smear with manual screeningon 11-11-2021 Thin prep Papanicolaou smear with manual screening 3 5-15 [facility] Work Phone: Urine blood detectionon 10-16 RBC Ql (U) Negative Negative [facility] Work Phone: RBC Ql (U) 0 SEEN /hpf [facility] Work Phone: Urine clarityon 11-11-2021 Clarity (U) Sl. Cloudy Clear [facility] Work Phone: Urine color determinationon 11-11-2021 Color (U) Yellow Yellow [facility] Work Phone: Urine glucose detectionon Glucose Ql (U) Normal mg/dl Normal [facility] Work Phone: Urine leukocyte esterase det ection by dipstickon 11-11-2021 Leukocyte esterase Test strip Ql (U) Negative Negative [facility] Work Phone: Urine pHon 11-11-2021 pH (U) 6.0 [pH] [facility] Work Phone: Urine sediment bacteria coun t by microscopy (number/high power field)on 11-11-2021 Bacteria LM.HPF (Urine sed) [#/Area] 0 /[HPF] None Seen [facility] Work Phone: Urine specific gravity measu rementon 11-11-2021 Specific gravity (U) [Rel density] 1.020 [facility] Work Phone: Urobilinogen Auto test strip Ql (U)on 11-11-2021 Urobilinogen Ql (U) Normal mg/dl Normal [facility] Work Phone: Final Surgical Pathology Rep [facility] 09-27-2019 Final Surgical Pathology Report . Pathology Reports Accession: Collected Date/Time: Received Date/Time: Pathologist: [id number] 09/23/2019 13:55 EST 09/26/2019 13:55 EST NYASIA ROJO MD Final Surgical Pathology Report DIAGNOSIS: SKIN, LEFT PLANTAR HEEL -- COMPOUND NEVUS. COMMENT: [facility]# [id number] CLINICAL INFORMATION: SKIN LESION SPECIMEN: A LESION - LEFT PLANTAR HEEL GROSS DESCRIPTION: Received in formalin labeled with the patient's name and designated left plantar heel lesion. It consists of an ellipse of white-mendiola skin and subcutaneous tissue measuring 1.4 x 0.4 x 0.4 cm. The skin surface is slightly roughened but a distinct lesion is not seen. The resection margin is inked in black. The specimen is serially sectioned and entirely submitted in one cassette. dictated by Brennon Leahy M.D. Dictated by NYASIA ROJO MICROSCOPIC DESCRIPTION: Slides reviewed. Electronically Signed by Pathology Report verified by [facility] Electronically signed by NYASIA ROJO Sign out Date: 09/27/2019 14:21 Performing Lab: [facility], [address] [place] [address] ([place]) Comment on above: Performed By: #### S PFR #### [place] [address] .Auto Diffon 12-16-2018 Ammonia (P) [Mass/Vol] 0.60 10 3/mcL Normal 0.15-1.00 [facility] ([place]) Comment on above: Performed By: #### C BC, ADIFF, ANEU #### [address] [address] #### BMP, GFR #### [address] [address] Basophils (Bld) [#/Vol] 0.00 10 3/mcL Normal 0.00-0.19 [facility] ([place]) Comment on above: Performed By: #### C BC, ADIFF, ANEU #### [address] [address] #### BMP, GFR #### [address] [address] Basophils/100 WBC (Bld) 0.5 % Normal 0.0-2.5 [facility] ([place]) Comment on above: Performed By: #### C BC, ADIFF, ANEU #### [address] [address] #### BMP, GFR #### [address] [address] Eosinophils (Bld) [#/Vol] 0.10 10 3/mcL Normal 0.00-0.40 [facility] ([place]) Comment on above: Performed By: #### C BC, ADIFF, ANEU #### [address] [address] #### BMP, GFR #### [address] [address] Eosinophils/100 WBC (Bld) 2.5 % Normal 0.0-7.0 [facility] ([place]) Comment on above: Performed By: #### C BC, ADIFF, ANEU #### [address] [address] #### BMP, GFR #### [address] [address] Lymphocytes (Bld) [#/Vol] 1.50 10 3/mcL Normal 0.77-3.85 [facility] ([place]) Comment on above: Performed By: #### C BC, ADIFF, ANEU #### [address] [address] #### BMP, GFR #### [address] [address] Lymphocytes/100 WBC (Bld) 26.3 % Normal 10.0-50.0 [facility] ([place]) Comment on above: Performed By: #### C BC, ADIFF, ANEU #### [address] [address] #### BMP, GFR #### [address] [address] Monocytes/100 WBC (Bld) 11.2 % Normal 1.7-13.0 [facility] ([place]) Comment on above: Performed By: #### C BC, ADIFF, ANEU #### [address] [address] #### BMP, GFR #### [address] [address] Neutrophils/100 WBC (Bld) 59.5 % Normal 37.0-80.0 [facility] ([place]) Comment on above: Performed By: #### C BC, ADIFF, ANEU #### [address] [address] #### BMP, GFR #### [address] [address] .GFRon 12-16-2018 GFR Non- 91 ml/min/1.73sqm Normal [facility] ([place]) Comment on above: Result Comment: GFR Population mean for , Non- Americans Ages 20-29 = 116 mL/min/1.73 sq.m. Ages 30-39 = 107 mL/min/1.73 sq.m. Ages 40-49 = 99 mL/min/1.73 sq.m. Ages 50-59 = 93 mL/min/1.73 sq.m. Ages 60-69 = 85 mL/min/1.73 sq.m. Ages 70+ = 75 mL/min/1.73 sq.m. Chronic Kidney Disease: Less than 60 mL/min/1.73 square meters End Stage Renal Disease: Less than 15 mL/min/1.73 square meters Performed By: #### C BC, ADIFF, ANEU #### [address] [address] #### BMP, GFR #### [address] [address] GFR 110 ml/min/1.73sqm Normal [facility] ([place]) Comment on above: Result Comment: GFR Population mean for , Non- Americans Ages 20-29 = 116 mL/min/1.73 sq.m. Ages 30-39 = 107 mL/min/1.73 sq.m. Ages 40-49 = 99 mL/min/1.73 sq.m. Ages 50-59 = 93 mL/min/1.73 sq.m. Ages 60-69 = 85 mL/min/1.73 sq.m. Ages 70+ = 75 mL/min/1.73 sq.m. Chronic Kidney Disease: Less than 60 mL/min/1.73 square meters End Stage Renal Disease: Less than 15 mL/min/1.73 square meters Performed By: #### C BC, ADIFF, ANEU #### [address] [address] #### BMP, GFR #### [address] [address] .NEUABSon 12-16-2018 Neutrophils (Bld) [#/Vol] 3.30 10 3/mcL Normal 2.85-6.16 [facility] ([place]) Comment on above: Performed By: #### C BC, ADIFF, ANEU #### [address] [address] #### BMP, GFR #### [address] [address] BMPon 12-16-2018 Calcium [Mass/Vol] 8.5 mg/dL Normal 8.4-10.2 [facility] ([place]) Comment on above: Performed By: #### C BC, ADIFF, ANEU #### [address] [address] #### BMP, GFR #### [address] [address] Chloride [Moles/Vol] 104 mmol/L Normal 98-107 [facility] ([place]) Comment on above: Performed By: #### C BC, ADIFF, ANEU #### [address] [address] #### BMP, GFR #### [address] [address] CO2 [Moles/Vol] 31 mmol/L Normal 23-31 [facility] ([place]) Comment on above: Performed By: #### C BC, ADIFF, ANEU #### [address] [address] #### BMP, GFR #### [address] [address] Creatinine [Mass/Vol] 0.83 mg/dL Normal 0.70-1.30 [facility] ([place]) Comment on above: Performed By: #### C BC, ADIFF, ANEU #### [address] [address] #### BMP, GFR #### [address] [address] Electrolyte Balance 6.0 mEq/L Normal [facility] ([place]) Comment on above: Performed By: #### C BC, ADIFF, ANEU #### [address] [address] #### BMP, GFR #### [address] [address] Glucose [Mass/Vol] 73 mg/dL Low 83-110 [facility] ([place]) Comment on above: Performed By: #### C BC, ADIFF, ANEU #### [address] [address] #### BMP, GFR #### [address] [address] Potassium [Moles/Vol] 4.1 mmol/L Normal 3.5-5.1 [facility] ([place]) Comment on above: Performed By: #### C BC, ADIFF, ANEU #### [address] [address] #### BMP, GFR #### [address] [address] Sodium [Moles/Vol] 141 mmol/L Normal 136-145 [facility] ([place]) Comment on above: Performed By: #### C BC, ADIFF, ANEU #### [address] [address] #### BMP, GFR #### [address] [address] Urea nitrogen [Mass/Vol] 20 mg/dL High 7-18 [facility] ([place]) Comment on above: Performed By: #### C BC, ADIFF, ANEU #### [address] [address] #### BMP, GFR #### [address] [address] Urea nitrogen/Creatinine [Mass ratio] 24 ratio Normal 7-27 [facility] ([place]) Comment on above: Performed By: #### C BC, ARMIDAIFF, ANEU #### [address] [address] #### BMP, GFR #### [address] [address] CBCon 12-16-2018 Erythrocyte distribution width (RBC) [Ratio] 13.1 % Normal 11.5-14.5 [facility] ([place]) Comment on above: Performed By: #### C BC, ARMIDAIFF, ANEU #### [address] [address] #### BMP, GFR #### [address] [address] Hematocrit (Bld) [Volume fraction] 39.5 % Low 42.0-52.0 [facility] ([place]) Comment on above: Performed By: #### C BC, ADIFF, ANEU #### [address] [address] #### BMP, GFR #### [address] [address] Hemoglobin (Bld) [Mass/Vol] 13.3 G/dL Low 14.0-18.0 [facility] ([place]) Comment on above: Performed By: #### C KALA BORJA, ANEU #### [place] [address] #### BMP, GFR #### [address] [address] MCH (RBC) [Entitic mass] 31.7 pg High 27.0-31.2 [facility] ([place]) Comment on above: Performed By: #### C KALA BORJA, ANEU #### [place] [address] #### BMP, GFR #### [place] [address] MCHC (RBC) [Mass/Vol] 33.8 G/dL Normal 31.8-35.4 [facility] ([place]) Comment on above: Performed By: #### C KALA BORJA, ANEU #### [place] [address] #### BMP, GFR #### [place] [id number] MCV (RBC) [Entitic vol] 93.8 fL Normal 80.0-94.0 [facility] ([place]) Comment on above: Performed By: #### C KALA BORJA, ANEU #### [place] [address] #### BMP, GFR #### [place] [address] Platelet mean volume (Bld) [Entitic vol] 9.5 fL Normal 7.4-10.4 [facility] ([place]) Comment on above: Performed By: #### KALA SOTO, ANEU #### [place] [address] #### BMP, GFR #### [place] [id number] Platelets (Bld) [#/Vol] 209 10 3/mcL Normal 130-400 [facility] ([place]) Comment on above: Performed By: #### C BC, ADIFF, ANEU #### [address] [address] #### BMP, GFR #### [address] [address] RBC (Bld) [#/Vol] 4.21 10 6/mcL Normal 4.04-6.13 [facility] ([place]) Comment on above: Performed By: #### C BC, ADIFF, ANEU #### [address] [address] #### BMP, GFR #### [address] [address] WBC (Bld) [#/Vol] 5.60 10 3/mcL Normal 4.60-10.80 [facility] ([place]) Comment on above: Performed By: #### C BC, ADIFF, ANEU #### [address] [address] #### BMP, GFR #### [address] [address] Lab Report: Basic Metabolic Profile (BMP)on 02-20-2017 Anion gap 7 mmol/L Invalid Interpretation Code -15 [facility] Work Phone: [phone] Anion gap molar conc 7 mmol/L 01-26 [employer] [facility] Work Phone: [phone] BUN/Creatinine Ratio 20.4 RATIO High 10-20 [employer] [facility] Work Phone: [phone] Calcium 9.1 mg/dL Invalid Interpretation Code 8.5-10.1 [employer] Work Phone: [phone] Chloride 102 mmol/L Invalid Interpretation Code 98-107 [employer] Work Phone: [phone] CO2 29.0 mmol/L Invalid Interpretation Code 21.0-32.0 [employer] Work Phone: [phone] CO2 ppres (BldV) 29.0 mmol/L 21.0-32.0 [employer] Work Phone: [phone] Creatinine 0.88 mg/dL Invalid Interpretation Code 0.70-1.30 [employer] Work Phone: [phone] eGFR (non-black) 91 mL/min/{1.73_m2} Invalid Interpretation Code >60 [employer] Work Phone: [phone] eGFR (non-black) 110 mL/min/{1.73_m2} Invalid Interpretation Code >60 [employer] Work Phone: [phone] EST GFR - AA 110 mL/min >60 [employer] Work Phone: [phone] Glucose 84 mg/dL Invalid Interpretation Code 70-110 [employer] Work Phone: [phone] Glucose mass conc 84 mg/dL 70-110 [employer] Work Phone: [phone] Potassium 4.6 mmol/L Invalid Interpretation Code 3.5-5.1 [employer] Work Phone: [phone] Sodium 138 mmol/L Invalid Interpretation Code 136-145 [employer] Work Phone: [phone] Urea nitrogen 18 mg/dL Invalid Interpretation Code 7-18 [employer] Work Phone: [phone] Lab Report: Magnesiumon Magnesium 2.3 mg/dL Invalid Interpretation Code 1.8-2.4 [employer] Phone: [phone] Office Visit: [facility] 02-21-20 17 Documentation of current medications (procedure) Done Invalid Interpretation Code [employer] Phone: [phone] Fall risk assessment No Invalid Interpretation Code [employer] Work Phone: [phone] Protein mass conc Done [employer] Phone: [phone] Office Visiton 08-15-2016 Dietary management education, guidance, and counseling (procedure) yes Invalid Interpretation Code [employer] Work Phone: [phone] Documentation of current medications (procedure) Done Invalid Interpretation Code [employer] Work Phone: [phone] Tobacco smoking status NHIS Never smoker [employer] Work Phone: [phone] Tobacco use CPHS Never smoker Invalid Interpretation Code [employer] Work Phone: [phone] 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 Left ventricular Ejection fraction 65 % Invalid Interpretation Code [employer] Work Phone: [phone] Office Visiton 07-25-2015 cardiac risk group C Invalid Interpretation Code [employer] Work Phone: General cardiovascular disease 10Y risk [#] Samantha 18 % Invalid Interpretation Code [employer] Work Phone: Replaced Document: Lilliana Koroma CG Observationson 07-25-2015 EKG QRS axis -90 deg [employer] Work Phone: electrocardiogram interpretation Electronic ventricular pacemaker Pacemaker ECG, No further analysis Poor SNR (< 1) in leads I INSUFFICIENT DATA Invalid Interpretation Code [employer] Work Phone: [phone] GE use only - for [employer] import when terms are not otherwise specified 400 ms Invalid Interpretation Code [employer] Work Phone: [phone] Interpretation Electronic ventricul ar pacemaker Pacemaker ECG, No further analysis Poor SNR (< 1) in leads I INSUFFICIENT DATA [employer] Work Phone: P [place] 1 deg [employer] Work Phone: P wave axis, electrocardiogram 1 deg Invalid Interpretation Code [employer] Work Phone: [place] Interval 0 ms [employer] Work Phone: [place] interval, electrocardiogram 0 ms Invalid Interpretation Code [employer] Work Phone: Pulse (Heart Rate) 81 /min Invalid Interpretation Code [employer] Work Phone: QRS axis, electrocardiogram -90 deg Invalid Interpretation Code [employer] Work Phone: QRS Duration 100 ms [employer] Work Phone: QRS duration, electrocardiogram 100 ms Invalid Interpretation Code [employer] Work Phone: QT Interval new path ms [employer] Work Phone: QT interval, electrocardiogram new path ms Invalid Interpretation Code [employer] Work Phone: QTc Hernandez 400 ms [employer] Work Phone: T [place] 90 deg [facility] Work Phone: [phone] T wave axis, electrocardiogram 90 deg Invalid Interpretation Code [facility] Work Phone: [phone] 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 basophils as percent of blood leukocytes, manual count 0 % Invalid Interpretation Code [facility] Work Phone: [phone] eosinophils as percent of blood leukocytes, manual count 1 % Invalid Interpretation Code [facility] Work Phone: [phone] Erythrocyte distribution width (RBC) [Ratio] 46.8 % [facility] Work Phone: [phone] Erythrocytes (RBC) 5.35 10*6/uL Invalid Interpretation Code [facility] Work Phone: [phone] Hematocrit (Bld) [Volume fraction] 50.0 % [facility] Work Phone: [phone] Hematocrit (HCT) 50.0 % Invalid Interpretation Code [facility] Work Phone: [phone] Hemoglobin (Bld) [Mass/Vol] 16.4 g/dL Invalid Interpretation Code [facility] Work Phone: [phone] Lymphocytes/100 leukocytes 18 % Invalid Interpretation Code [facility] Work Phone: [phone] Lymphocytes/100 WBC (Bld) 18 % [facility] Work Phone: [phone] MCH 30.7 pg Invalid Interpretation Code [facility] Work Phone: [phone] MCH (RBC) [Entitic mass] 30.7 pg [facility] Work Phone: [phone] MCHC 32.8 g/dL Invalid Interpretation Code [facility] Work Phone: [phone] MCHC (RBC) [Mass/Vol] 32.8 g/dL [facility] Work Phone: [phone] MCV 93.5 fL Invalid Interpretation Code [facility] Work Phone: [phone] MCV (RBC) [Entitic vol] 93.5 fL [facility] Work Phone: [phone] Monocytes/100 leukocytes 10 % Invalid Interpretation Code [facility] Work Phone: [phone] Monocytes/100 WBC (Bld) 10 % [facility] Work Phone: [phone] neutrophils, band form as percent of blood leukocytes, manual count 70 % Invalid Interpretation Code [facility] Work Phone: [phone] Platelets 171 10*3/mm3 Invalid Interpretation Code [facility] Work Phone: [phone] Platelets (Bld) [#/Vol] 171 10*3/mm3 [facility] Work Phone: [phone] RBC (Bld) [#/Vol] 5.35 10*6/uL [facility] Work Phone: [phone] RDW-CA 46.8 % Invalid Interpretation Code [facility] Work Phone: [phone] WBC (Bld) [#/Vol] 10.3 10*3/uL High [facility] Work Phone: [phone] WBC (Leukocytes) 10.3 10*3/uL High [facility] Work Phone: [phone] Clinical Lists 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: 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 field coordinator 07-11-2015 Calcium [Mass/Vol] 8.1 mg/dL [facility] Work Phone: [phone] Chloride [Moles/Vol] 106 mmol/L [facility] Work Phone: [phone] Cholesterol [Mass/Vol] 184 mg/dL Invalid Interpretation Code [facility] Work Phone: [phone] Cholesterol in HDL [Mass/Vol] 43 mg/dL Invalid Interpretation Code [facility] Work Phone: [phone] Cholesterol in LDL [Mass/Vol] 126 mg/dL Invalid Interpretation Code [facility] Work Phone: [phone] CO2 (BldV) [Partial pressure] 24 mmol/L [facility] Work Phone: [phone] Creatinine [Mass/Vol] 0.7 mg/dL [facility] Work Phone: [phone] Glucose [Mass/Vol] 95 mg/dL [facility] Work Phone: [phone] Potassium [Moles/Vol] 3.9 mmol/L [facility] Work Phone: [phone] Sodium [Moles/Vol] 139 mmol/L [facility] Work Phone: [phone] Triglyceride [Mass/Vol] 76 mg/dL Invalid Interpretation Code [facility] Work Phone: [phone] Urea nitrogen [Mass/Vol] 19 mg/dL [facility] Work Phone: [phone] Clinical Lists 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: Prelo field coordinator 07-10-2015 Albumin [Mass/Vol] 3.7 g/dL Invalid Interpretation Code [facility] Work Phone: [phone] Alkaline phosphatase (ALP) 92 U/L High [facility] Work Phone: [phone] ALP (Bld) [Catalytic activity/Vol] 92 U/L High [facility] Work Phone: [phone] ALT [Catalytic activity/Vol] 27 U/L Invalid Interpretation Code [facility] Work Phone: [phone] AST [Catalytic activity/Vol] 21 U/L Invalid Interpretation Code [facility] Work Phone: [phone] Bilirubin [Mass/Vol] 0.5 mg/dL Invalid Interpretation Code [facility] Work Phone: [phone] Protein [Mass/Vol] 7.0 g/dL Invalid Interpretation Code [facility] Work Phone: [phone] Vital Signs Date Time Vital Sign Value Performing Clinician Cristino andrews 05-10-2025 15:36-0400 Body height 172.[address] Paul Mac MD Work Phone: [facility] 05-10-2025 15:31-0400 Body weight 86.[address] Paul Mac MD Work Phone: [facility] 05-10-2025 15:31-0400 Diastolic blood pressure 64 mm[Hg] Dr. Paul Mac MD Work Phone: [facility] 05-10-2025 15:31-0400 Heart rate 88 /min Dr. Paul Mac MD Work Phone: [facility] 05-10-2025 15:31-0400 Respiratory rate 16 /min Dr. Paul Mac MD Work Phone: [facility] 05-10-2025 15:31-0400 Systolic blood pressure 101 mm[Hg] Dr. Paul Mac MD Work Phone: [facility] 04-17-2025 13:16-0400 Body height 172.[address] Paul aMc MD Work Phone: [facility] 04-17-2025 13:16-0400 Body mass index (BMI) [Ratio] 28.8 kg/m2 Dr. Paul Mac MD Work Phone: 9([phone])677-259649 [address] 04-17-2025 13:16-0400 Body weight 86.[address] Paul Mac MD Work Phone: 0(423)631-549249 [address] 04-12-2025 15:30-0400 Diastolic blood pressure 78 mm[Hg] Dr. Paul Mac MD Work Phone: 9(534)758-922149 [address] 04-12-2025 15:30-0400 Heart rate 86 /min Dr. Paul Mac MD Work Phone: 1(533)240-251149 [address] 04-12-2025 15:30-0400 Respiratory rate 18 /min Dr. Paul Mac MD Work Phone: 1(724)274-907268 [place] [address] 04-12-2025 15:30-0400 SaO2% (BldA) [Mass fraction] 97 % Dr. Paul Mac MD Work Phone: [facility] 04-12-2025 15:30-0400 Systolic blood pressure 153 mm[Hg] Dr. Paul Mac MD Work Phone: [facility] 04-12-2025 13:25-0400 Body mass index (BMI) [Ratio] 27.3 kg/m2 Dr. Paul Mac MD Work Phone: 2(466)134-680868 [place] [address] 04-12-2025 13:25-0400 Body temperature 98 [degF] Dr. Paul Mac MD Work Phone: [facility] 04-12-2025 13:25-0400 Body weight 81.[address] Paul Mac MD Work Phone: 9(856)170-988268 [place] [address] 01-18-2025 10:58-0400 Body height 172.[address] Paul Mac MD Work Phone: [facility] 01-18-2025 10:58-0400 Body mass index (BMI) [Ratio] 28.8 kg/m2 Dr. Paul Mac MD Work Phone: [facility] 01-18-2025 10:58-0400 Body weight 86.[address] Paul Mac MD Work Phone: [facility] 01-18-2025 10:58-0400 Diastolic blood pressure 66 mm[Hg] Dr. Paul Mac MD Work Phone: [facility] 01-18-2025 10:58-0400 Heart rate 81 /min Dr. Paul Mac MD Work Phone: [facility] 01-18-2025 10:58-0400 Respiratory rate 18 /min Dr. Paul Mac MD Work Phone: [facility] 01-18-2025 10:58-0400 SaO2% (BldA) [Mass fraction] 97 % Dr. Paul Mac MD Work Phone: [facility] 01-18-2025 10:58-0400 Systolic blood pressure 107 mm[Hg] Dr. Paul Mac MD Work Phone: [facility] 10-12-2024 06:36-0500 Body height 172.[address] Paul Mac MD Work Phone: [facility] 10-12-2024 06:36-0500 Body mass index (BMI) [Ratio] 32.5 kg/m2 Dr. Paul Mac MD Work Phone: [facility] 10-12-2024 06:36-0500 Body temperature 95.8 [degF] Dr. Paul Mac MD Work Phone: [facility] 10-12-2024 06:36-0500 Body weight 97.[address] Paul Mac MD Work Phone: [facility] 10-12-2024 06:36-0500 Diastolic blood pressure 67 mm[Hg] Dr. Paul Mac MD Work Phone: [facility] 10-12-2024 06:36-0500 Heart rate 85 /min Dr. Paul Mac MD Work Phone: [facility] 10-12-2024 06:36-0500 Respiratory rate 18 /min Dr. Paul Mac MD Work Phone: [facility] 10-12-2024 06:36-0500 SaO2% (BldA) [Mass fraction] 98 % Dr. Paul Mac MD Work Phone: [facility] 10-12-2024 06:36-0500 Systolic blood pressure 110 mm[Hg] Dr. Paul Mac MD Work Phone: [facility] 11-30-2023 11:16-0400 Body temperature 97.6 [degF] Dr. Paul Mac Work Phone: [facility] 11-30-2023 11:16-0400 Diastolic blood pressure 67 mm[Hg] Dr. Paul aMc Work Phone: [facility] 11-30-2023 11:16-0400 Heart rate 69 /min Dr. Paul Mac Work Phone: [facility] 11-30-2023 11:16-0400 Respiratory rate 16 /min Dr. Paul Mac Work Phone: [facility] 11-30-2023 11:16-0400 SaO2% (BldA) [Mass fraction] 100 % Dr. Paul Mac Work Phone: [facility] 11-30-2023 11:16-0400 Systolic blood pressure 121 mm[Hg] Dr. Paul Mac Work Phone: [facility] 11-30-2023 09:20-0400 Body height 172.[address] Paul Mac Work Phone: [facility] 11-30-2023 09:20-0400 Body mass index (BMI) [Ratio] 29.6 kg/m2 Dr. Paul Mac Work Phone: [facility] 11-30-2023 09:20-0400 Body weight 88.[address] Paul Mac Work Phone: [facility] 10-08-2023 09:54-0500 Body mass index (BMI) [Ratio] 29.5 kg/m2 Dr. Paul Mac Work Phone: [facility] 10-08-2023 09:54-0500 Body temperature 97.5 [degF] Dr. Paul Mac Work Phone: [facility] 10-08-2023 09:54-0500 Body weight 88.[address] Paul Mca Work Phone: [facility] 10-08-2023 09:54-0500 Diastolic blood pressure 79 mm[Hg] Dr. Paul Mac Work Phone: [facility] 10-08-2023 09:54-0500 Heart rate 75 /min Dr. Paul Mac Work Phone: [facility] 10-08-2023 09:54-0500 Respiratory rate 18 /min Dr. Paul Mac Work Phone: [facility] 10-08-2023 09:54-0500 SaO2% (BldA) [Mass fraction] 98 % Dr. Paul Mac Work Phone: [facility] 10-08-2023 09:54-0500 Systolic blood pressure 127 mm[Hg] Dr. Paul Mac Work Phone: [facility] 09-23-2023 13:26-0500 Body mass index (BMI) [Ratio] 29.5 kg/m2 Dr. Paul Mac Work Phone: [facility] 09-23-2023 13:26-0500 Body weight 87.[address] Paul Mac Work Phone: [facility] 09-23-2023 13:26-0500 Diastolic blood pressure 76 mm[Hg] Dr. Paul Mac Work Phone: [facility] 09-23-2023 13:26-0500 Heart rate 87 /min Dr. Paul Mac Work Phone: [facility] 09-23-2023 13:26-0500 Respiratory rate 17 /min Dr. Paul Mac Work Phone: [facility] 09-23-2023 13:26-0500 SaO2% (BldA) [Mass fraction] 98 % Dr. Paul Mac Work Phone: [facility] 09-23-2023 13:26-0500 Systolic blood pressure 122 mm[Hg] Dr. Paul Mac Work Phone: [facility] 09-23-2023 10:55-0500 Body mass index (BMI) [Ratio] 29.5 kg/m2 Dr. Paul Mac Work Phone: [facility] 09-23-2023 10:55-0500 Body weight 87.[address] Paul Mac Work Phone: [facility] 09-23-2023 10:55-0500 Diastolic blood pressure 61 mm[Hg] Dr. Paul Mac Work Phone: [facility] 09-23-2023 10:55-0500 Heart rate 86 /min Dr. Paul Mac Work Phone: [facility] 09-23-2023 10:55-0500 Respiratory rate 16 /min Dr. Paul Mac Work Phone: [facility] 09-23-2023 10:55-0500 Systolic blood pressure 104 mm[Hg] Dr. Paul Mac Work Phone: [facility] 08-17-2023 10:51-0500 Body height 172.[address] Paul Mac Work Phone: [facility] 08-17-2023 10:51-0500 Body weight 87.[address] Paul Mac Work Phone: [facility] 08-14-2023 09:58-0500 Body mass index (BMI) [Ratio] 29.2 kg/m2 Dr. Paul Mac Work Phone: [facility] 07-16-2023 14:39-0400 Body height 172.[address] Paul Mac Work Phone: [facility] 07-16-2023 14:39-0400 Body mass index (BMI) [Ratio] 29.2 kg/m2 Dr. Paul Mac Work Phone: [facility] 07-16-2023 14:39-0400 Body weight 87.[address] Paul Mac Work Phone: [facility] 07-16-2023 14:39-0400 Diastolic blood pressure 71 mm[Hg] Dr. Paul Mac Work Phone: 6(614)047-830968 [place] [address] 07-16-2023 14:39-0400 Heart rate 83 /min Dr. Paul Mac Work Phone: 6(790)393-428768 [place] [address] 07-16-2023 14:39-0400 Respiratory rate 16 /min Dr. Paul Mac Work Phone: 1(517)499-584968 [place] [address] 07-16-2023 14:39-0400 Systolic blood pressure 124 mm[Hg] Dr. Paul Mac Work Phone: 5(126)499-532668 [place] [address] 12-25-2022 15:45-0400 Body height 172.[address] Paul Mac Work Phone: 3(443)104-996468 [place] [address] 12-25-2022 15:45-0400 Body mass index (BMI) [Ratio] 28.8 kg/m2 Dr. Paul Mac Work Phone: [facility] 12-25-2022 15:45-0400 Body weight 86.[address] Paul Mac Work Phone: 3(370)310-023468 [place] [address] 12-25-2022 15:45-0400 Diastolic blood pressure 76 mm[Hg] Dr. Paul Mac Work Phone: [facility] 12-25-2022 15:45-0400 Heart rate 82 /min Dr. Paul Mac Work Phone: [facility] 12-25-2022 15:45-0400 Respiratory rate 16 /min Dr. Paul Mac Work Phone: [facility] 12-25-2022 15:45-0400 Systolic blood pressure 122 mm[Hg] Dr. Paul Mac Work Phone: [facility] 07-03-2022 11:13-0400 Body height 172.[address] Paul Mac Work Phone: [facility] Work Phone: 07-03-2022 11:08-0400 Body mass index (BMI) [Ratio] 29.7 kg/m2 Dr. Paul Mac Work Phone: [facility] Work Phone: 07-03-2022 11:08-0400 Body weight 88.[address] Paul Mac Work Phone: [facility] Work Phone: 07-03-2022 11:08-0400 Diastolic blood pressure 77 mm[Hg] Dr. Paul Mac Work Phone: [facility] Work Phone: 07-03-2022 11:08-0400 Heart rate 70 /min Dr. Paul Mac Work Phone: [facility] Work Phone: 07-03-2022 11:08-0400 Respiratory rate 14 /min Dr. Paul Mac Work Phone: [facility] Work Phone: 07-03-2022 11:08-0400 Systolic blood pressure 131 mm[Hg] Dr. Paul Mac Work Phone: [facility] Work Phone: 06-09-2022 10:56-0400 Body height 172.[address] Paul Mac Work Phone: [facility] Work Phone: 02-12-2022 13:51-0400 Body mass index (BMI) [Ratio] 29.8 kg/m2 Dr. Paul Mac Work Phone: [facility] Work Phone: 02-12-2022 13:51-0400 Body temperature 97.3 [degF] Dr. Paul Mac Work Phone: [facility] Work Phone: 02-12-2022 13:51-0400 Body weight 89.[address] Paul Mac Work Phone: [facility] Work Phone: 02-12-2022 13:51-0400 Diastolic blood pressure 77 mm[Hg] Dr. Paul Mac Work Phone: [facility] Work Phone: 02-12-2022 13:51-0400 Heart rate 82 /min Dr. Paul Mac Work Phone: [facility] Work Phone: 02-12-2022 13:51-0400 Respiratory rate 17 /min Dr. Paul Mac Work Phone: [facility] Work Phone: 02-12-2022 13:51-0400 SaO2% (BldA) [Mass fraction] 98 % Dr. Paul Mac Work Phone: [facility] Work Phone: 02-12-2022 13:51-0400 Systolic blood pressure 132 mm[Hg] Dr. Paul Mac Work Phone: [facility] Work Phone: 12-25-2021 13:48-0400 Body height 172.[address] Joaquin Melo Work Phone: [facility] Work Phone: 12-25-2021 13:48-0400 Body weight 89.[address] Joaquin Melo Work Phone: [facility] Work Phone: 12-25-2021 13:48-0400 Diastolic blood pressure 82 mm[Hg] Dr. Joaquin Melo Work Phone: [facility] Work Phone: 12-25-2021 13:48-0400 Heart rate 82 /min Dr. Joaquin Melo Work Phone: [facility] Work Phone: 12-25-2021 13:48-0400 Respiratory rate 16 /min Dr. Joaquin Melo Work Phone: [facility] Work Phone: 12-25-2021 13:48-0400 SaO2% (BldA) [Mass fraction] 97 % Dr. Joaquin Melo Work Phone: [facility] Work Phone: 12-25-2021 13:48-0400 Systolic blood pressure 142 mm[Hg] Dr. Joaquin Melo Work Phone: [facility] Work Phone: 11-11-2021 12:19-0500 Diastolic blood pressure 78 mm[Hg] Dr. Joaquin Melo Work Phone: [facility] Work Phone: 11-11-2021 12:19-0500 Heart rate 73 /min Dr. Joaquin Melo Work Phone: [facility] Work Phone: 11-11-2021 12:19-0500 Respiratory rate 14 /min Dr. Joaquin Melo Work Phone: [facility] Work Phone: 11-11-2021 12:19-0500 SaO2% (BldA) [Mass fraction] 97 % Dr. Joaquin Melo Work Phone: [facility] Work Phone: 11-11-2021 12:19-0500 Systolic blood pressure 136 mm[Hg] Dr. Joaquin Melo Work Phone: [facility] Work Phone: 11-11-2021 09:30-0500 Body mass index (BMI) [Ratio] 28.1 kg/m2 Dr. Joaquin Melo Work Phone: [facility] Work Phone: 11-11-2021 09:30-0500 Body temperature 95.8 [degF] Dr. Joaquin Melo Work Phone: [facility] Work Phone: 11-11-2021 09:30-0500 Body weight 83.[address] Joaquin Melo Work Phone: [facility] Work Phone: 11-08-2021 13:34-0500 Diastolic blood pressure 78 mm[Hg] Dr. Joaquin Melo Work Phone: [facility] Work Phone: 11-08-2021 13:34-0500 Heart rate 82 /min Dr. Joaquin Melo Work Phone: [facility] Work Phone: 11-08-2021 13:34-0500 Respiratory rate 16 /min Dr. Joaquin Melo Work Phone: [facility] Work Phone: 11-08-2021 13:34-0500 SaO2% (BldA) [Mass fraction] 100 % Dr. Joaquin Melo Work Phone: [facility] Work Phone: 11-08-2021 13:34-0500 Systolic blood pressure 146 mm[Hg] Dr. Joaquin Melo Work Phone: [facility] Work Phone: 11-08-2021 10:53-0500 Body mass index (BMI) [Ratio] 27.8 kg/m2 Dr. Joaquin Melo Work Phone: [facility] Work Phone: 11-08-2021 10:53-0500 Body temperature 96.9 [degF] Dr. Joaquin Melo Work Phone: [facility] Work Phone: 11-08-2021 10:53-0500 Body weight [address] Joaquin Melo Work Phone: [facility] Work Phone: 03-28-2021 13:14-0400 Body mass index (BMI) [Ratio] 27.8 kg/m2 Dr. Joaquin Melo Work Phone: [facility] Work Phone: 02-20-2017 07:53-0400 BMI (Body Mass Index) 27.52 kg/m2 [facility] Work Phone: 02-20-2017 07:53-0400 BP Diastolic 72 mm[Hg] Stacy Mina PA-C [facility] Work Phone: 02-20-2017 07:53-0400 BP Systolic 130 mm[Hg] Stacy Mina PA-C [facility] Work Phone: 02-20-2017 07:53-0400 Height 172.72 cm Stacy Mina PA-C [facility] Work Phone: 02-20-2017 07:53-0400 Pulse (Heart Rate) 68 /min Stacy Mina PA-C [facility] Work Phone: 02-20-2017 07:53-0400 Respiratory Rate 16 /min Stacy Mina PA-C [facility] Work Phone: 02-20-2017 07:53-0400 Weight 82.1 kg Stacy Mina PA-C [facility] Work Phone: 08-15-2016 09:50-0500 BMI (Body Mass Index) 29.19 kg/m2 [facility] Work Phone: 08-15-2016 09:50-0500 Body weight 87.09 kg Harroosevelt DeFinpolo [facility] Work Phone: 08-15-2016 09:50-0500 BP Diastolic 68 mm[Hg] Harumi DeFinis [facility] Work Phone: 08-15-2016 09:50-0500 BP Systolic 128 mm[Hg] Harroosevelt DeFinpolo [facility] Work Phone: 08-15-2016 09:50-0500 BSA (Body Surface Area) 2.01 m2 Harumi DeFinis [facility] Work Phone: 08-15-2016 09:50-0500 Height 172.72 cm Harroosevelt DeFinis [facility] Work Phone: 08-15-2016 09:50-0500 Pulse (Heart Rate) 80 /min Harroosevelt DeFinis [facility] Work Phone: 08-15-2016 09:50-0500 Respiratory Rate 18 /min Harroosevelt DeFinis [facility] Work Phone: 08-15-2016 09:50-0500 Weight 87.09 kg Stacy Mina PA-C [facility] Work Phone: 07-25-2015 14:21-0500 Heart rate 81 /min Jenna DeFinpolo [facility] Work Phone: Encounters Encounter Date Encounter Type Care Provider Facility Start: 05-23-2025 ambulatory Johann [place] Facility:[facility] Start: 05-22-2025 Encounter for other preprocedural examination [facility] Start: 05-17-2025 Encounter for other preprocedural examination Paul Mca [facility] Start: 05-17-[address] [facility] Dr[facility] Johann Andrews MD -Laboratory [facility] Start: 05-17-2025 ambulatory [facility] Facility:[facility] Start: 05-12-2025 End: 05-12-[address] Johann Andrews MD -[facility] Work Phone: Start: 05-12-2025 End: 05-12-[address] Paul Mac MD Work Phone: -[facility] Start: 05-11-2025 End: 05-11-[address] Paul Mac MD Work Phone: -Laboratory [facility] Start: 05-11-2025 End: 05-11-[address] Paul Mac MD -Laboratory [facility] Start: 05-11-[address] Kim Mac MD Work Phone: [facility] Start: 05-10-2025 End: 05-10-2025 Patient encounter status Joaquin Ramirez [facility] Start: 05-10-2025 End: 05-11-[address] Paul Mac MD Work Phone: [facility] Start: 05-10-2025 End: 05-10-2025 Patient encounter procedure Joaquin Ramirez - -[facility] Work Phone: Start: 04-20-2025 Encounter for preprocedural laboratory examination Shal[facility] Start: 04-17-2025 End: 04-17-2025 Patient encounter procedure Beth MALDONADO -[facility] Work Phone: Start: 04-17-2025 End: 04-17-[address] Paul Mac MD Work Phone: -[facility] Start: 04-12-2025 End: 04-12-[address] Paul Mac MD Work Phone: -Radiology [facility] Start: 04-12-2025 End: 04-12-[address] Shalom Barraza MD -Radiology [facility] Work Phone: Start: 04-12-2025 End: 04-12-2025 ambulatory Paul Mac Facility:[facility] Start: 03-16-2025 End: 03-16-2025 Patient encounter procedure Beth MALDONADO -[facility] Work Phone: Start: 03-16-2025 End: 03-16-[address] Paul Mac MD Work Phone: [facility] Start: 02-24-2025 End: 02-24-[address] Paul Mac MD Work Phone: [facility] Work Phone: Start: 02-24-2025 End: 02-24-[address] Donald Burt MD -[facility] Work Phone: Start: 01-18-2025 End: 01-18-[address] Paul Mac MD Work Phone: [facility] Work Phone: Start: 01-18-2025 End: 01-18-[address] Donald Burt MD -[facility] Work Phone: Start: 12-12-2024 End: 12-12-[address] Paul Mac MD Work Phone: [facility] Work Phone: Start: 12-12-2024 End: 12-12-[address] Paul Mac MD -[facility] Work Phone: Start: 12-12-2024 End: 12-12-2024 ambulatory Paul Mac Facility:[facility] Start: 12-03-2024 End: 12-03-2024 ambulatory Paul Mac Facility:[facility] [place] [place] Start: 12-03-2024 End: 12-03-[address] Donald Burt MD -[facility] Work Phone: Start: 11-25-2024 End: 11-25-2024 ambulatory Paul Mac Facility:[facility] Start: 11-25-2024 End: 11-25-[address] Donald Burt MD -[facility] Work Phone: Start: 10-12-2024 End: 10-12-2024 Patient encounter procedure VANDA Asher [facility] Work Phone: Start: 10-12-2024 End: 10-12-2024 ambulatory Debbie Asher Facility:[facility] Start: 08-26-2024 End: 08-26-2024 ambulatory Paul Mac Facility:[facility] Start: 08-26-2024 End: 08-26-[address] Donald Burt MD -[facility] Work Phone: Start: 07-28-2024 End: 07-28-2024 ambulatory Paul Mac Facility:[facility] Start: 07-20-2024 End: 07-20-2024 ambulatory Paul Mac Facility:[facility] Start: 05-27-2024 End: 05-27-2024 ambulatory Paul Mac Facility:[facility] Start: 05-23-2024 End: 05-23-2024 ambulatory Joaquin Ramirez NP Facility:[facility] Start: 11-30-2023 End: 11-30-[address] Paul Mac Work Phone: [facility] Work Phone: Start: 11-30-2023 End: 11-30-[address] Paul Mac Work Phone: [facility] Start: 11-30-2023 Non-patient / Non-visit Dr. Erica Mac Work Phone: [facility] Start: 11-30-2023 End: 11-30-2023 Admission to same day surgery center Dr. Paul Mac Work Phone: [facility]-Endoscopy Work Phone: Start: 11-30-2023 End: 11-30-[address] Paul Mac Work Phone: [facility] Work Phone: Start: 10-08-2023 End: 10-08-[address] Paul Mac Work Phone: [facility]-Pulmonary Medicine [facility] Work Phone: Start: 10-07-2023 Non-patient / Non-visit Dr. Erica Mac Work Phone: [facility] Start: 10-07-2023 End: 10-07-[address] Paul Mac Work Phone: [facility]-Cardiovascula r Services Work Phone: Start: 09-23-2023 End: 09-23-[address] Paul Mac Work Phone: [facility] Work Phone: Start: 09-23-2023 End: 09-23-[address] Paul Mac Work Phone: [facility] Work Phone: Start: 08-21-2023 End: 08-21-[address] Paul Mac Work Phone: [facility] Work Phone: Start: 08-17-2023 End: 08-17-2023 Admission to same day surgery center Dr. Paul Mac Work Phone: [facility]/Special Procedures Work Phone: Start: 08-17-2023 End: 08-17-[address] Paul Mac Work Phone: [facility] Work Phone: Start: 08-14-2023 End: 08-14-[address] Paul Mac Work Phone: [facility] Work Phone: Start: 07-23-2023 Non-patient / Non-visit Dr. Erica Mac Work Phone: [facility] Start: 07-16-2023 End: 07-16-[address] Paul Mac Work Phone: [facility] Work Phone: Start: 07-16-2023 End: 07-16-[address] Paul Mac Work Phone: [facility] Work Phone: Start: 07-16-2023 End: 07-16-[address] Paul Mac Work Phone: [facility] Start: 06-08-[address] Paul cullen Work Phone: [facility] Work Phone: Start: 05-13-2023 End: 05-13-[address] Paul Mac Work Phone: [facility] Work Phone: Start: 01-14-2023 End: 01-14-[address] Paul Mac Work Phone: [facility] Work Phone: Start: 01-14-2023 End: 01-14-[address] Paul Mac Work Phone: [facility] Start: 12-25-2022 End: 12-25-[address] Paul Mac Work Phone: [facility] Start: 12-24-2022 End: 12-24-[address] Paul Mac Work Phone: [facility] Start: 07-26-2022 End: 07-26-[address] Paul Mac Work Phone: [facility] Start: 07-03-2022 End: 07-03-[address] Paul Mac Work Phone: [facility] Start: 06-25-2022 End: 06-25-[address] Paul Mac Work Phone: [facility] Start: 06-20-2022 End: 06-20-[address] Paul Mac Work Phone: [facility] Work Phone: Start: 06-20-2022 End: 06-20-[address] Paul Mac Work Phone: [facility] Start: 06-11-2022 End: 06-11-[address] Paul Mac Work Phone: [facility] Start: 06-09-2022 End: 06-09-[address] Paul Mac Work Phone: [facility] Start: 05-28-2022 End: 05-28-[address] Paul Mac Work Phone: [facility] Work Phone: Start: 05-28-2022 End: 05-28-[address] Paul Mac Work Phone: [facility] Start: 05-06-2022 End: 05-06-[address] Paul Mac Work Phone: [facility] Work Phone: Start: 05-06-2022 End: 05-06-[address] Paul Mac Work Phone: [facility], [facility] Start: 03-10-2022 End: 03-10-2022 ambulatory Conor Weaver 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 Paul Mac Work Phone: [facility] Start: 01-17-[address] Joaquin Melo Work Phone: [facility] Start: 01-15-2022 End: 01-15-[address] Joaquin Melo Work Phone: [facility] Start: 01-01-2022 Non-patient / Non-visit Dr. Jessica Melo Work Phone: [facility] Start: 01-01-[address] Joaquin pratt Work Phone: [facility]Cardiovascula r Services Start: 12-25-2021 End: 12-25-[address] Joaquin Melo Work Phone: [facility] Start: 12-25-[address] Karie Melo Work Phone: [facility] Start: 12-25-[address] Paul chen MD Work Phone: [facility] Start: 12-25-2021 End: 12-25-2021 Admission to same day surgery center Dr. Joaquin Melo Work Phone: [facility] Start: 12-25-2021 End: 12-25-[address] Joaquin Melo Work Phone: [facility] Start: 11-13-2021 End: 11-13-[address] Joaquin Melo Work Phone: [facility] Start: 11-11-2021 End: 11-11-2021 Emergency department patient visit Dr. Joaquin Melo Work Phone: [facility]Emergency Department Start: 11-08-2021 End: 11-08-[address] Joaquin Melo Work Phone: [facility]-Radiology, [facility] Start: 10-11-2021 End: 10-11-[address] Joaquin Melo Work Phone: [facility]-Radiology, [facility] Start: 11-29-2020 End: 11-29-[address] DARLENE VYAS [facility] Start: 11-01-2020 End: 11-01-2020 ambulatory DOCTOR [facility] Procedures Date Procedure Procedure Detail Performing Clinician Start: 05-17-2025 Hepatitis A virus an tibody, total measurement Dr. Paul Mca MD Work Phone: Comment on above: Comment: The HAV tot al antibody assay detects both IgG andIgM but does not differentiate between them. A negativeresult suggests susceptibility to infection. A positiveresult could be due to vaccination, previously resolvedinfection or active infection. Testing for HAV IgM shouldbe performed if active HAV infection is suspected. [facility]corpoffers profiles that will automatically reflex positive HAVtotal antibody results to IgM (e.g., panel #[id number] HAVAntibody w/ Rfx).Performed at: [facility] [id number] Director: Amauri Butt PhD, Phone: [phone] Start: 05-17-2025 Hepatitis C antibody measurement Dr. Paul Mac MD Work Phone: Comment on above: Reactive: Presumptiv e evidence of antibodies to HCV. Follow CDC recommendations for supplemental testing.Non-Reactive: Antibodies to HCV were not detected; does not exclude the possibility of exposure to HCVReactive Results are presumptive evidence of antibodies to HCV. Follow CDC recommendations for supplemental testing.Order confirmation testing: HCV Quant by PCR testing - HCVPCR #[id number] Non Reactive: < 0.8 Equivocal: >/= 0.8 to < 1.0 Reactive: >/= 1.0The CDC requires that a reactive/equivocal HCV antibody result be sent out for confirmation. HCV Quant by PCR testing. Start: 05-17-2025 Methicillin resistan t Staphylococcus aureus screening test Dr. Paul Mac MD Work Phone: Start: 04-12-2025 Computerized axial t omography of lumbar spine with contrast Dr. Paul Mac MD Work Phone: Start: 04-12-[address] Paul cullen MD Work Phone: Start: 11-30-[address] Paul cullen Work Phone: Start: 06-20-2022 CT of lumbar spine Dr. Paul Mac Work Phone: Start: 06-09-2022 X-ray of lumbar spin e, two or three views Dr. Paul Mac Work Phone: Start: 05-06-2022 Plain x-ray of pelvi s and lower extremity Dr. Paul Mac Work Phone: Start: 05-06-[address] Krery Mac Work Phone: Start: 11-11-2021 CT of head without contrast Dr. Joaquin Melo Work Phone: Start: 11-08-[address] Joaquin pratt Work Phone: Start: 11-08-2021 Computerized axial t omography of lumbar spine with contrast Dr. Joaquin Melo Work Phone: Start: 10-11-2021 X-ray of lumbar spin e, two or three views Dr. Joaquin Melo Work Phone: Start: 04-13-2017 End: 04-13-2017 Pm device progr eval, multi Stayc Rodriguez PA-C Work Phone: Start: 02-20-2017 End: 02-20-2017 *BMP Stacy Mina PA-C Work Phone: Start: 02-20-2017 End: 02-20-2017 SIGNAL TOWER DIRECTOR Stacy Mina PA-C Work Phone: Start: 02-20-2017 End: 02-20-2017 Follow Up Appt 6 months Stacy pitt PA-C Work Phone: Start: 02-20-2017 End: 02-20-2017 Magnesium Stacy Mina PA-C Work Phone: Start: 12-31-2016 End: [...] months Sweetie Lopez Start: 08-15-2016 End: 08-15-2016 DALLIN Burt MD Start: 06-11-2016 End: 02-04-2017 Follow Up Appt 3 months Sweetie Lopez Start: 06-11-2016 End: 02-04-2017 Pacer Clinic Donald Burt MD Start: 06-11-2016 End: 06-11-2016 Pm device interrogate remote Donald dejesus MD Start: 06-06-2016 End: 06-06-2016 Drain/inject, joint/bursa Selma garcia Work Phone: Start: 03-05-2016 End: 03-20-2016 Follow Up Appt 3 months Sweetie Lopez Start: 03-05-2016 End: 03-20-2016 Pacer Clinic Donald Burt MD Start: 03-05-2016 End: 03-10-2016 Pm device interrogate remote Donald dejesus MD Start: 02-14-2016 End: 02-14-2016 SIGNAL TOWER DIRECTOR Stacy Mina PA-C Work Phone: Start: 02-14-2016 [...] 01-29-2016 Follow Up Appt 1 month Donald Burt MD Start: 08-02-2015 End: 01-29-2016 Pacer Clinic [...] Treatment Date Care Activity Detail Author Start: 05-17-2025 Nasal Screen MRSA/MSSA Nasal Screen MRSA/MSSA [facility] Start: 05-10-2025 Evaluation of diagnostic study results [facility] Start: 04-12-2025 Computerized axial tomography of lumbar spine with contrast Spine Lumbar WITH Contrast [facility] Start: 04-12-2025 CT Lumbar spine W contrast IV [facility] Start: 11-30-2023 Patient discharge [facility] Start: 08-17-2023 Patient discharge [facility] Start: 09-14-2021 ADVANCE DIRECTIVE DISCUSSION ADVANCE DIRECTIVE DISCUSSION [facility] Start: 09-24-2017 End: 09-24-2017 Appointment Appointment [facility] Work Phone: Start: 04-13-2017 End: 04-13-2017 Appointment Appointment [facility] Work Phone: Start: 04-13-2017 End: 04-13-2017 Follow Up Appt 3 months Follow Up Appt 3 months [facility] Work Phone: Start: 04-13-2017 End: 04-13-2017 Pacer Clinic Pacer Clinic [facility] Work Phone: Start: 04-10-2017 End: 04-10-2017 Appointment Appointment [facility] Work Phone: Start: 02-20-2017 End: 02-20-2017 Appointment Appointment [facility] Work Phone: Start: 02-20-2017 End: 02-20-2017 *BMP *BMP [facility] Work Phone: Start: 02-20-2017 End: 02-20-2017 SIGNAL TOWER DIRECTOR SIGNAL TOWER DIRECTOR [facility] Work Phone: Start: 02-20-2017 End: 02-20-2017 Follow Up Appt 6 months Follow Up Appt 6 months [facility] Work Phone: Start: 02-20-2017 End: 02-20-2017 Magnesium *Magnesium [facility] Work Phone: Start: 12-31-2016 End: 02-04-2017 Follow Up Appt 3 months Follow Up Appt 3 months [facility] Work Phone: Start: 12-31-2016 End: 02-04-2017 Pacer Clinic Pacer Clinic [facility] Work Phone: Start: 09-17-2016 End: 02-04-2017 Follow Up Appt 3 months Follow Up Appt 3 months [facility] Work Phone: Start: 09-17-2016 End: 02-04-2017 Pacer Clinic [facility]er Clinic [facility] Work Phone: Start: 08-15-2016 End: 08-15-2016 Follow Up Appt 6 months Follow Up Appt 6 months [facility] Work Phone: Start: 08-15-2016 End: 08-15-2016 MMM MMM [facility] Work Phone: Start: 06-11-2016 End: 02-04-2017 Follow Up Appt 3 months Follow Up Appt 3 months [facility] Work Phone: Start: 06-11-2016 End: 02-04-2017 Pacer Clinic Pacer Clinic [facility] Work Phone: Start: 06-06-2016 End: 06-06-2016 X-ray exam of hand X-Ray, Hand [facility] Work Phone: Start: 03-05-2016 End: 03-20-2016 Follow Up Appt 3 months Follow Up Appt 3 months [facility] Work Phone: Start: 03-05-2016 End: 03-20-2016 Pacer Clinic Pacer Clinic [facility] Work Phone: Start: 02-14-2016 End: 02-14-2016 SIGNAL TOWER DIRECTOR SIGNAL TOWER DIRECTOR [facility] Work Phone: Start: 02-14-2016 End: 02-14-2016 Echocardiography Echocardiogram (complete) [facility] Work Phone: Start: 02-14-2016 End: 02-14-2016 Follow Up Appt 6 months Follow Up Appt 6 months [facility] Work Phone: Start: 11-30-2015 End: 01-29-2016 Follow Up Appt 3 months Follow Up Appt 3 months [facility] Work Phone: Start: 11-30-2015 End: 01-29-2016 Pacer Clinic Pacer Clinic [facility] Work Phone: Start: 08-27-2015 End: 01-29-2016 Follow Up Appt 3 months Follow Up Appt 3 months [facility] Work Phone: Start: 08-27-2015 End: 01-29-2016 Pacer Clinic [facility] Clinic [facility] Work Phone: Start: 08-02-2015 End: 01-29-2016 Follow Up Appt 1 month Follow Up Appt 1 month [facility] Work Phone: Start: 08-02-2015 End: 01-29-2016 Pacer Clinic [facility]er Clinic [facility] Work Phone: Start: 07-31-2015 End: 01-29-2016 Nuclear stress test -Lexiscan Nuclear stress test -Lexiscan [facility] Work Phone: Start: 07-25-2015 End: 01-29-2016 Device Interrogation Device Interrogation [facility] Work Phone: Start: 07-25-2015 End: 01-29-2016 Electrocardiogram, complete EKG (In office) [facility] Work Phone: Start: 07-25-2015 End: 01-29-2016 Follow Up Appt 6 months Follow Up Appt 6 months [facility] Work Phone: Start: 07-25-2015 End: 01-29-2016 MMM MMM [facility] Work Phone: Start: 2011 PNEUMOCOCCAL: 65+ (1 - PCV) PNEUMOCOCCAL: 65+ (1 - PCV) [facility] Start: 01-17-1996 SHINGRIX VACCINE (1 of 2) SHINGRIX VACCINE (1 of 2) [facility] Start: 1991 DIABETES SCREEN DIABETES SCREEN [facility] Start: 1965 Urine microalbumin profile DTAP,TDAP,TD (1 - Tdap) [facility] Start: 01-17-1964 HEPATITIS C SCREENING HEPATITIS C SCREENING [facility] Start: 1958 Adult depression screening assessment DEPRESSION SCREENING [facility] Ankle brachial press ure index [facility] Work Phone: Blood chemistry [facility] Complete blood count [facility] Complete blood count [facility] Hepatitis A virus Ab [Presence] in Serum [facility] Methicillin resistan t Staphylococcus aureus screening test [facility] Partial thromboplast in time, activated [facility] Patient Education [facility] Work Phone: Patient referral [facility] Work Phone: Prothrombin time [facility] Prothrombin time [facility] Replacement of elect ronic heart device, pulse generator [facility] Urinalysis complete panel - Urine [facility] US Carotid arteries [facility] Work Phone: XR Chest PA and Lateral [facility] Payers Date Payer Category Payer Self-pay [id number] 2023 Private Health Insurance [facility] [id number] 2014 Private Health Insurance [employer] A ETNA MEDICARE SUPPLEMENT [id number] 2014-Present [phone] [address] [address] [place] [address] Indemnity [id number] 2011 Medicare [id number] 2011 Medicare MEDICARE MEDICAR E A AND B [id number] 2011-Present [phone] [place] [address] Medicare [id number] 1945 Unknown [id number] [id number] .2.651 1945 Unknown [id number] 2.16.840.1.841703.3.579 .2.651 Unknown [id number] 2.16.840.1.299236.3.579 .2.462 Unknown [id number] 2.16.840.1.086468.3.579 .2.462 Unknown [id number] 2.16.840.1.582104.3.579 .2.462 Unknown [id number] 2.16.840.1.497105.3.579 .2.462 Unknown [id number] 2.16.840.1.770619.3.579 .2.462 Unknown [id number] 2.16.840.1.392066.3.579 .2.462 Unknown [id number] 2.16.840.1.282735.3.579 .2.462 Unknown [id number] 2.16.840.1.394026.3.579 .2.462 Unknown [id number] 2.16.840.1.672598.3.579 .2.462 Unknown [id number] 2.16.840.1.777116.3.579 .2.462 Unknown [id number] 2.16.840.1.628046.3.579 .2.462 Unknown [id number] 2.16.840.1.822000.3.579 .2.462 Unknown [id number] 2.16.840.1.445348.3.579 .2.462 Unknown [id number] 2.16.840.1.957502.3.579 .2.462 Unknown [id number] 2.16.840.1.412646.3.579 .2.462 Unknown [id number] 2.16.840.1.014110.3.579 .2.462 Unknown [id number] 2.16.840.1.506506.3.579 .2.462 Unknown [id number] 2.16.840.1.257075.3.579 .2.462 Unknown [id number] 2.16.840.1.420839.3.579 .2.462 Unknown [id number] 2.16.840.1.417046.3.579 .2.462 Unknown [id number] 2.16.840.1.812858.3.579 .2.462 Unknown [id number] 2.16840.1.087584.3.579 .2.462 Unknown [id number] 2.16.840.1.350151.3.579 .2.462 Unknown [id number] 2.16840.1.501285.3.579 .2.462 Unknown [id number] 2.840.1.783143.3.579 .2.462 Social History Date Type Detail Facility Start: 12-25-2021 End: 11-27-2023 Tobacco smoking status CAIS Unknown if ever smoked [facility] Start: 1945 Sex Assigned At Male W [facility] Start: 05-19-2024 End: 05-16-2025 Tobacco smoking status CAIS Never smoked tobacco [facility] Start: 04-08-2019 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 intake 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) [facility] Start: 1945 Sex Assigned At Not on file [facility] Start: 02-21-2022 End: 03-10-2022 Exposure to SARS-CoV-2 (event) Not sure [facility] Start: 12-14-2024 Sex Male (finding) [facility] Medical Equipment Procedure Code Equipment Code Equipment Original Text Equipment Identifier Dates [employer] consul 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 or 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 FDA Start: 07-13-2015 medtronic consul 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 or 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 FDA Start: 07-13-2015 medtronic consul 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 or 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 FDA Start: 07-13-2015 medtronic consul 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 or 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 FDA Start: 07-13-2015 medtronic consul 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 or 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 FDA Start: 07-13-2015 medtronic consul 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 or 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 FDA Start: 07-13-2015 medtronic consul 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 or 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 FDA Start: 07-13-2015 medtronic 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 FDA Start: 07-13-2015 medtronic 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 FDA Start: 07-13-2015 medtronic 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 FDA Start: 07-13-2015 medtronic 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 FDA Start: 07-13-2015 medtronic 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 FDA Start: 07-13-2015 medtronic 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 FDA Start: 07-13-2015 medtronic 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 FDA Start: 07-13-2015 medtronic 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 FDA Start: 07-13-2015 medtronic 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 FDA Start: 07-13-2015 medtronic 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 FDA Start: 07-13-2015 medtronic 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 FDA Start: 07-13-2015 medtronic 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 FDA Start: 07-13-2015 medtronic 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 FDA Start: 07-13-2015 ([id number]) Cardiac resynchr onization therapy implantable pacemaker [id number] FDA Start: 08-17-2023 medtronic 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 FDA Start: 07-13-2015 medtronic 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 FDA Start: 07-13-2015 medtronic 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 FDA Start: 07-13-2015 medtronic 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 FDA Start: 07-13-2015 medtronic 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 FDA Start: 07-13-2015 medtronic 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 FDA Start: 07-13-2015 medtronic 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 FDA Start: 07-13-2015 medtronic 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 FDA Start: 07-13-2015 medtronic 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 FDA Start: 07-13-2015 medtronic 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 FDA Start: 07-13-2015 medtronic 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 FDA Start: 07-13-2015 medtronic 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 FDA Start: 07-13-2015 medtronic 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 FDA Start: 07-13-2015 medtronic 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 FDA Start: 07-13-2015 medtronic 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 FDA Start: 07-13-2015 medtronic 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 FDA Start: 07-13-2015 medtronic 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 FDA Start: 07-13-2015 medtronic 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 FDA Start: 07-13-2015 medtronic 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 FDA Start: 07-13-2015 medtronic kendy mathur production or 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 FDA Start: 07-13-2015 medtronic kendy mathur production or 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 FDA Start: 07-13-2015 medtronic kendy mathur production or 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 FDA Start: 07-13-2015 medtronic 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 FDA Start: 07-13-2015 medtronic kendy mathur production or 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 FDA Start: 07-13-2015 medtronic kendy mathur production or 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 FDA Start: 07-13-2015 medtronic kendy mathur production or 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 FDA Start: 07-13-2015 medtronic kendy mathur production or 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 FDA Start: 07-13-2015 medtronic kendy mathur production or 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 FDA Start: 07-13-2015 medtronic kendy mathur production or 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 FDA Start: 07-13-2015 medtronic kendy mathur production or 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 FDA Start: 07-13-2015 medtronic kendy mathur production or 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 FDA Start: 07-13-2015 medtronic kendy mathur production or 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 FDA Start: 07-13-2015 medtronic kendy mathur production or 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 FDA Start: 07-13-2015 medtronic kendy mathur production or 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 FDA Start: 07-13-2015 medtronic kendy mathur production or 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 FDA Start: 07-13-2015 medtronic 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 FDA Start: 07-13-2015 medtronic kendy mathur production or 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 FDA Start: 07-13-2015 medtronic 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 FDA Start: 07-13-2015 medtronic 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 FDA Start: 07-13-2015 medtronic 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 FDA Start: 07-13-2015 medtronic 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 FDA Start: 07-13-2015 medtronic 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 FDA Start: 07-13-2015 medtronic 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 FDA Start: 07-13-2015 Goals Date Patient Goal Desired Activity /State Mental Status Date Assessment Result Facility 04-12-2025 Cognitive function Awake;Alert;Appropriat e [facility] Work Phone: 11-30-2023 Cognitive function Voice/Name;Touch/Shaki ng [facility] Work Phone: 11-11-2021 Cognitive function Level Of Cons ciousness Awake;Alert;Appropriate;Follo ws Commands [facility] Work Phone: 11-08-2021 Cognitive function Voice/Name [facility] Work Phone: Clinical Notes 07-13-2015 to 05-10-2025 Note Date & Type Note Facility 05-10-2025 Procedure note [facility] 04-18-2025 Radiology Diagnostic study note [facility] Imaging Services [address] [place], [place] [address] Spine Lumbar WITH Contrast MR#: [id number] Acct: [id number] Name: MOO HOROWITZ Rep #: [id number] : 1945 M 80 From: Jung Sanders MD PCP: Dr. Paul Mac MD Status: REG C BALDEMAR Study:Spine Lumbar WITH Contrast Date of Exam : 04/12/25 Exam# [id number] Ordering Dr: Kyle Barraza MD PROCEDURE: SPINE LUMBAR WITH CONTRAST 04/12/2025 REASON FOR EXAM: LOW BACK PAIN TECHNIQUE: SPINE LUMBAR WITH CONTRAST CONTRAST: Approximately 17 mL of Isovue 200-M contrast material was then instilled, confirmed with fluoroscopic guidance. See dedicated fluoroscopic procedural report for detail performed on the same day. One or more dose reduction techniques were used (e.g., Automated exposure control, adjustment of the mA and/or kV according to patient size, use of iterative reconstruction technique). RADIATION DOSE SUMMARY: CTDlvol: 27 mGy DLP: 991 mGycm COMPARISON: June 09, 2022, June 20, 2022, April 12, 2025 FINDINGS: Vertebrae: Bone mineralization is decreased. Mild anterior wedging of T12 and L1 vertebral bodies with a proximally 25% height loss. Marginal endplate spurs are seen throughout the lumbar spine with bridging osteophytes anteriorly at L1/2, L2/3, L3/4. Large anterior osteophytes at L4/5. Alignment: Mild straightening of the lumbar lordosis. Conus medullaris: Terminates at T12/L1. Appearance is unremarkable. There is no clumping of nerve roots to suggest arachnoiditis. T12-L1: Moderate loss of disc height. Minimal, diffuse disc bulge. No central stenosis. Borderline bilateral exit foraminal narrowing. L1-2: Mild loss of disc height. Mild, diffuse disc bulge. No central stenosis. Borderline bilateral exit foraminal narrowing. L2-3: Mild loss of disc height. Mild, diffuse disc bulge. No central stenosis. Borderline exit foraminal narrowing on the right. L3-4: Ogbe-pv-boyscdyp loss of disc height. Vacuum disc phenomenon. Diffuse disc bulge. Borderline central stenosis at 10 mm AP. Minimal facet hypertrophy. Wrffu-dbmfgiq-nmjb-left exit foraminal narrowing. Correlate with L3 radiculopathy. L4-5: Left laminectomy. Mild loss of disc height. Vacuum disc phenomenon. Diffuse disc bulge with focal protrusion left paracentral, left sub foraminal, left foraminal region. Marked thickening of the right ligamentum flavum. Mild facet hypertrophy. The combination of the above findings distorts the thecal sac withextradural defects from disc material and thickening of the ligamentum flavum. The central canal is significantly narrowed to 5.3 mm transverse in narrowest dimension. Severe exit foraminal narrowing bilaterally. Correlate with bilateral L4 radiculopathy and likely radiculopathy of the traversing left L5 nerve root. Involvement of the traversing right L5 nerve root not excluded. L5-S1: Mild, diffuse disc bulge. No central stenosis. Mild facet hypertrophy. Exit foraminal narrowing, ixjh-qenqrxy-rjtx-right. Correlate with L5 radiculopathy. Sacrum: Mild degenerative changes of the SI joints. No fracture. CT/Spine Lumbar WITH Contrast IMPRESSION: 1. Multilevel degenerative disc disease outlined above. Postsurgical change L4/5. This region is associated with central stenosis. See above description. 2. Straightening of the normal lumbar lordosis. 25% height loss from anterior wedging at T12 and L1. Reading Location: [id number] CC: Dr. Paul Mac MD; Dr. Shalom Barraza MD ~ Cloth Booker: Signed [facility] 07-30-2025 Radiology Diagnostic study note [facility] Imaging Services [address] [place] [address] Lumbar Myelogram MR#: [id number] Acct: [id number] Name: MOO HOROWITZ Rep #: [id number] : 1945 M 80 From: Angel Correa MD PCP: Dr. Paul Mac MD Status: REG C LI Study:Lumbar Myelogram Date of Exam: Exam# [id number] Ordering Dr: Kyle Barraza MD PROCEDURE: LUMBAR MYELOGRAM 04/12/2025 REASON FOR EXAM: LOW BACK PAIN TECHNIQUE: LUMBAR MYELOGRAM COMPARISON: Lumbar spine study of 06/09/2022. FINDINGS: Postsurgical changes of the pelvis are again noted. Degenerative changes of the lumbar spine are again seen, with disc space narrowing throughout the entire lumbar spine. Procedure: Following informed consent, and using standard sterile technique, a fluoroscopically guided lumbar myelogram was performed. 2% lidocaine local anesthesia was followed by placement of a 22 gauge 3.5 in spinalneedle into the spinal canal at the L2 level via a left posterior oblique approach. Approximately 17 mL of Isovue 200-M contrastmaterial was then instilled, confirmed with fluoroscopic guidance. Fluoroscopy time: 98 seconds. Dose: 178.6 mGy-cm. RAD/Lumbar Myelogram IMPRESSION: Postcontrast images show moderate spinal canal narrowing of the L4-L5 level and mild spinal canal narrowing of the L3-L4 level. Reading Location: [place] [address] CC: Dr. Paul Mac MD; Dr. Shalom Barraza MD ~ Cloth Booker: Signed [facility] 03-16-2025 Evaluation note Diagnosis Onset Date Resolution Degenerative disc disease (DDD) of lumbar region with discogenic back pain acute March 16, 2:11pm Foot drop, left noneactive March 16, 2025 2:11pm Degenerative disc disease (DDD) of lumbar region with discogenic back pain acute April 17, 2025 1:16pm Foot drop, left acute April 1:16pm Lumbar stenosis with neurogenic claudication acute April 17, 2025 1:16pm Atrial flutter chronic April 2:48pm Biventricular cardiac pacemaker in situ July 13, 2015 chronic May 10, 2025 2:48pm Left bundle branch block (LBBB) chronic May 10, 2025 2:48pm Mobitz type II atrioventricular block chronic May 10, 2025 2:48pm Preoperative cardiovascular examination acute May 10, 2025 2:49pm Atrial flutter chronic April 2:49pm Biventricular cardiac pacemaker in situ July 13, 2015 chronic May 10, 2025 2:49pm Essential (primary) hypertension chronic May 10, 2025 2:49pm Degenerative disc disease (DDD) of lumbar region with discogenic back pain acute April 1:09pm Foot drop, left acute May 122024 1:09pm Lumbar stenosis with neurogenic claudication acute May 12, 2025 1:09pm [facility] Work Phone: 1(767) 487-528405-07-2025 Evaluation note* Diagnosis Onset Date Resolution Status Admit Date Non-sustained ventricular tachycardia acute January 18, 2025 10:39am Biventricular cardiac pacemaker in situ July 13, 2015 chronic January 18 10:39am Left bundle branch block (LBBB) chronic January 18, 2025 10:39am Mobitz type II atrioventricular block chronic January 18, 2025 10:39am Atrial flutter chronic January 18, 10:41am Biventricular cardiac pacemaker in situ July 13, 2015 chronic January 18 10:41am Essential (primary) hypertension chronic January 18, 2025 10:41am [facility] Work Phone: 1(365) 559-767705-07-2025 Evaluation note* Diagnosis Onset Date Resolution Status Admit Date Non-sustained ventricular tachycardia acute January 18, 2025 10:39am Biventricular cardiac pacemaker in situ July 13, 2015 chronic January 18 10:39am Left bundle branch block (LBBB) chronic January 18, 2025 10:39am Mobitz type II atrioventricular block chronic January 18, 2025 10:39am Atrial flutter chronic January 18, 025 10:41am Biventricular cardiac pacemaker in situ July 13, 2015 chronic January 18 10:41am Essential (primary) hypertension chronic January 18, 2025 10:41am Degenerative disc disease (DDD) of lumbar region with discogenic back pain acute March 16, 2 025 2:11pm Foot drop, left noneactive March 16, 2025 2:11pm [facility] Work Phone: [phone]) 763-9496101181-27-9625 Evaluation note* Diagnosis Onset Date Resolution Status Admit Date Non-sustained ventricular tachycardia acute January 18, 2025 10:39am Biventricular cardiac pacemaker in situ July 13, 2015 chronic January 18 10:39am Left bundle branch block (LBBB) chronic January 18, 2025 10:39am Mobitz type II atrioventricular block chronic January 18, 2025 10:39am Atrial flutter chronic January 18 025 10:41am Biventricular cardiac pacemaker in situ July 13, 2015 chronic January 18 10:41am Essential (primary) hypertension chronic January 18, 2025 10:41am Degenerative disc disease (DDD) of lumbar region with discogenic back pain acute March 16, 025 2:11pm Foot drop, left noneactive March 16, 2025 2:11pm Degenerative disc disease (DDD) of lumbar region with discogenic back pain acute April 17, 2025 1:16pm Foot drop, left acute April 1:16pm Lumbar stenosis with neurogenic claudication acute April 172024 1:16pm [facility] Work Phone: 1(882) 908-647905-07-2025 Evaluation note* Diagnosis Onset Date Resolution Status Admit Date Non-sustained ventricular tachycardia acute January 18, 2025 10:39am Biventricular cardiac pacemaker in situ July 13, 2015January 18 10:39am Left bundle branch block (LBBB) chronic January 18, 2025 10:39am Mobitz type II atrioventricular block chronic January 18, 2025 10:39am Atrial flutter chronic January 18 025 10:41am Biventricular cardiac pacemaker in situ July 13, 2015 chronic January 18 10:41am Essential (primary) hypertension chronic January 18, 2025 10:41am Degenerative disc disease (DDD) of lumbar region with discogenic back pain acute March 16, 025 2:11pm Foot drop, left noneactive March 16, 2025 2:11pm Degenerative disc disease (DDD) of lumbar region with discogenic back pain acute April 17, 2025 1:16pm Foot drop, left acute April 1:16pm Lumbar stenosis with neurogenic claudication acute April 172024 1:16pm Atrial flutter chronic April 2:49pm Biventricular cardiac pacemaker in situ July 13, 2015 chronic April 2:49pm Essential (primary) hypertension chronic May 10 2:49pm [facility] Work Phone: 1([phone] 397-558305-07-2025 Evaluation note* Diagnosis Onset Date Resolution Status Admit Date Non-sustained ventricular tachycardia acute January 18, 2025 10:39am Biventricular cardiac pacemaker in situ July 13, 2015 chronic January 18 10:39am Left bundle branch block (LBBB) chronic January 18, 2025 10:39am Mobitz type II atrioventricular block chronic January 18, 2025 10:39am Atrial flutter chronic January 18, 10:41am Biventricular cardiac pacemaker in situ July 13, 2015 chronic January 18 10:41am Essential (primary) hypertension chronic January 18, 2025 10:41am Degenerative disc disease (DDD) of lumbar region with discogenic back pain acute March 16, 2 025 2:11pm Foot drop, left noneactive March 16, 2025 2:11pm Degenerative disc disease (DDD) of lumbar region with discogenic back pain acute April 17, 2025 1:16pm Foot drop, left acute April 1:16pm Lumbar stenosis with neurogenic claudication acute April 172024 1:16pm Atrial flutter chronic April 2:48pm Biventricular cardiac pacemaker in situ July 13, 2015 chronic April 2:48pm Left bundle branch block (LBBB) chronic May 10 2:48pm Mobitz type II atrioventricular block chronic May 102024 2:48pm Atrial flutter chronic April 2:49pm Biventricular cardiac pacemaker in situ July 13, 2015 chronic April 2:49pm Essential (primary) hypertension chronic May 10 2:49pm [facility] Work Phone: 1(108) 444-622705-07-2025 Evaluation note* Diagnosis Onset Date Resolution Status Admit Date Non-sustained ventricular tachycardia acute January 18, 2025 10:39am Biventricular cardiac pacemaker in situ July 13, 2015 chronic January 18 10:39am Left bundle branch block (LBBB) chronic January 18, 2025 10:39am Mobitz type II atrioventricular block chronic January 18, 2025 10:39am Atrial flutter chronic January 18, 025 10:41am Biventricular cardiac pacemaker in situ July 13, 2015 chronic January 18 10:41am Essential (primary) hypertension chronic January 18, 2025 10:41am Degenerative disc disease (DDD) of lumbar region with discogenic back pain acute March 16, 025 2:11pm Foot drop, left noneactive March 16, 2025 2:11pm Degenerative disc disease (DDD) of lumbar region with discogenic back pain acute April 17, 2025 1:16pm Foot drop, left acute April 1:16pm Lumbar stenosis with neurogenic claudication acute April 172024 1:16pm Atrial flutter chronic April 2:48pm Biventricular cardiac pacemaker in situ July 13, 2015 chronic April 2:48pm Left bundle branch block (LBBB) chronic May 10 2:48pm Mobitz type II atrioventricular block chronic May 102024 2:48pm Preoperative cardiovascular examination acute May 10 2:49pm Atrial flutter chronic April 2:49pm Biventricular cardiac pacemaker in situ July 13, 2015 chronic April 2:49pm Essential (primary) hypertension chronic May 10 2:49pm [facility] Work Phone: 1(873) 683-683705-07-2025 Evaluation note* Diagnosis Onset Date Resolution Status Admit Date Non-sustained ventricular tachycardia acute January 18, 2025 10:39am Biventricular cardiac pacemaker in situ July 13, 2015 chronic January 18 10:39am Left bundle branch block (LBBB) chronic January 18, 2025 10:39am Mobitz type II atrioventricular block chronic January 18, 2025 10:39am Atrial flutter chronic January 18 025 10:41am Biventricular cardiac pacemaker in situ July 13, 2015 chronic January 18 10:41am Essential (primary) hypertension chronic January 18, 2025 10:41am Degenerative disc disease (DDD) of lumbar region with discogenic back pain acute March 16, 025 2:11pm Foot drop, left noneactive March 16, 2025 2:11pm Degenerative disc disease (DDD) of lumbar region with discogenic back pain acute April 17, 2025 1:16pm Foot drop, left acute April 1:16pm Lumbar stenosis with neurogenic claudication acute April 172024 1:16pm Atrial flutter chronic April 2:48pm Biventricular cardiac pacemaker in situ July 13, 2015 chronic April 2:48pm Left bundle branch block (LBBB) chronic May 10 2:48pm Mobitz type II atrioventricular block chronic May 102024 2:48pm Preoperative cardiovascular examination acute May 10 2:49pm Atrial flutter chronic April 2:49pm Biventricular cardiac pacemaker in situ July 13, 2015 chronic April 2:49pm Essential (primary) hypertension chronic May 10 2:49pm Degenerative disc disease (DDD) of lumbar region with discogenic back pain acute April 1:09pm Foot drop, left acute May 122024 1:09pm Lumbar stenosis with neurogenic claudication acute April 152024 1:09pm [facility] Work Phone: 1(153) 593-740101-29-2025 Evaluation note* Diagnosis Onset Date Resolution Status Admit Date Pedal edema acute October 12, 2024 1:18pm LORI (obstructive sleep apnea) chroni c October 12, 2024 1:18pm [facility] Work Phone: 1(833) 546-700401-29-2025 Evaluation note* Diagnosis Onset Date Resolution Status Admit Date Pedal edema acute October 12, 2024 1:18pm LORI (obstructive sleep apnea) chronic October 12 1:18pm Non-sustained ventricular tachycardia acute January 18, 2025 10:39am Biventricular cardiac pacemaker in situ July 13, 2015 chronic January 18 10:39am Left bundle branch block (LBBB) chronic January 18, 2025 10:39am Mobitz type II atrioventricular block chronic January 18, 2025 10:39am Atrial flutter chronic January 18 025 10:41am Biventricular cardiac pacemaker in situ July 13, 2015 chronic January 18 10:41am Essential (primary) hypertension chronic January 18, 2025 10:41am [facility] Work Phone: 1(522) 218-775403-18-2024 History and physical note Author Richie Tan [facility] November 30, 2023 9:29am Note Date/Time November 30, 2023 9:2 9am [facility] Medical Records Department [address] [place] [address] History & Physical Exam 11/30/23928 MR#: [id number] Acct: [id number] Name: MOO HOROWITZ Rep #:[id number] : 1945 78 From: Richie Tan MD PCP: Dr. Paul Mac MD Status:REG S [place] Location: [place] [address] History and Physical Date of Admission: 11/30/23 Visit Reasons: C-Scope Chief Complaint: c scope Is patient in pain?: No Allergies diltiazem Adverse Reaction (Intermediate, Verified 09/23/23 13:26) Facial flushing and fatiguecarvedilol [From Coreg] Adverse Reaction (Verified 09/23/23 13:26) face tingling Medications alprazolam 0.5 mg tablet 0.5 mg PO QHS anxiety 12/07/15 [History Confirmed 09/23/23] meloxicam 15 mg tablet 15 mg PO DAILY 12/25/21 [History Confirmed 09/23/23] acetaminophen 500 mg tablet (Tylenol Extra Strength) 1,000 mg PO DAILY 12/25/22 [History Confirmed 09/23/23] cyclobenzaprine 5 mg tablet 5 mg PO BID PRN muscle spasm 12/25/22 [History Confirmed 09/23/23] apixaban 5 mg tablet (Eliquis) 5 mg PO BID #60 tabs 01/05/23 [Rx Confirmed 09/23/23] losartan 50 mg tablet 50 mg PO BID #180 tabs 01/26/23 [Rx Confirmed 09/23/23] verapamil 120 mg 24 hr capsule,extended release 120 mg PO DAILY STOP Diltiazem #90 caps 05/05/23 [Rx Confirmed 09/23/23] ipratropium bromide 21 mcg (0.03 %) nasal spray 2 spray intranasal DAILY 09/23/23 [History Confirmed 09/23/23] [facility] Medical History 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 Essential (primary) hypertension Left bundle branch block (LBBB) Mobitz type II atrioventricular block Non-sustained ventricular tachycardia LORI (obstructive sleep apnea) Over weight Raynaud disease Schatzki's ring of distal esophagus Sinus bradycardia Surgical History Biventricular cardiac pacemaker in situ (07/13/15) History of carpal tunnel surgery of right wrist History of esophagogastroduodenoscopy (EGD) History of herniorrhaphy Family History Mother CAD (coronary artery disease)Father CAD (coronary artery disease)Brother Polycystic kidney disease Social History Smoking Status: Never smoker alcohol intake: never substance use type: does not use caffeine: Yes Type: carbonated beverages and tea HPI HPI HPI: 78-year-old gentleman returns to discuss ongoing surveillance colonoscopy. It is of note that I have most recently seen him in the office on February 12, 2022. Hehad very mild right carotid stenosis asymptomatic. At that time he did not feelthat he required any intervention nor any particular additional testing other than carotid duplex imaging PVRs at 1 year. It appears that he did not pursue those. The purpose for today's visit is in follow-up of a colonoscopy that I assisted him with on July 09, 2018. Hemorrhoids were identified. A 5 mm polyp in the descending colon. Multiple diverticula. Pathology consistent witha tubular adenoma. The patient denies any central neurologic symptoms over the past year. 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 He denies any symptoms that would seem to correlate with calf claudication. He does feel that he has consequences of verapamil therapy. He feels that is aggravated constipation and hand and leg swelling. He will be stopping his verapamil tomorrow with Dr. Regalado. He reminds me he has a pacemaker in place. He is on Eliquis twice daily. He is try to alleviate some of his constipation by using bran cereal and that has helped. He denies any melena. Most infrequently does he have any evidence of any blood on the tissue. He attributes that to his blood thinner. No abdominal pain. No unexpected weight loss. ROS General General: No weight change, appetite, fatigue, colon cancer, breast cancer or weakness HEENT HEENT: No difficulty swallowing, eye injury, eye surgery, swollen glands or hoarseness Endo Endocrine: No thyroid disease, diabetes mellitus, thyroid cancer, Hair loss, heat intolerance or cold intolerance Skin Skin: No rash or changing moles Musc Musculoskeletal: Yes back problems and arthritis; No rheumatoid arthritis, gout or joint pain Cardio Cardiovascular: Yes murmur, pacemaker, atrial fibrillation and high blood pressure; No heart disease, heart attack, heart stent, palpitations, shortness of breat with exertion or chest pain Psych Psychiatric: No depression, anxiety or hearing voices Resp Respiratory: No shortness of breath, Yes sleep apnea, No cough, No COPD, No asthma, No emphysema and No wheezing Gastro Gastrointestinal: No abdominal pain, No nausea or vomiting, No diarrhea, Yes constipation, No blood in stool, Yes acid reflux, No hemorrhoids, No ulcers, No gallbladder problem and No black,tarry stools Mychal Hematologic: Yes blood thinners, No blood disorders, No bleeding, No anemia and No blood clots Additional Details: Baby ASA daily, eliquis Neuro Neurologic: No system reviewed and no additional complaints, except as documented, No as per HPI, No abnormal gait, No abnormal hearing, No abnormal movements, No abnormal speech, No behavioral changes, No burning sensations, No confusion, No convulsions, No disequilibrium, No dizziness, No localized weakness, No frequent falls, No headache(s), No lack of coordination, No loss ofvision, No memory loss, No numbness, No other visual disturbances, No radicular pain, No restless legs, No sensory deficit, No syncope, No tingling, No tremor(s), No weakness and No other Exam Const General: cooperative, comfortable and no acute distress Nutritional Appearance: obese Eyes General: appearance normal, both eyes and all related structures Chest Chest palpation & inspection: normal inspection of the chest Resp Effort & Inspection: normal respiratory effort Auscultation: clear to auscultation bilaterally Cardio Rate: regular rate Rhythm: regular rhythm Other: Bilateral carotids are 3+. No carotid bruits. Bilateral radials 3+. Bilateral femorals 3+. GI Inspection: normal to inspection Palpation: soft and no hepatosplenomegaly Other: Overweight, difficult to detect internal organs Skin General: no rashes or lesions noted Neuro General: patient alert, patient awake and patient oriented x3 Extrem General: no calf tenderness Other: Mild bilateral extremity pitting edema. Psych Appearance: grossly normal Assessment and Plan Assessment and Plan (1) Peripheral vascular disease: Status: Acute (2) Carotid artery disease: Status: Acute Qualifiers: Carotid artery disease type: stenosis Laterality: right Qualified Code(s): I65.21 - Occlusion and stenosis of right carotid artery (3) Personal history of colonic polyps: Status: Acute Plan: I will recommend to the patient a colonoscopy with possible biopsy or polypectomy as indicated. He is aware of the technique, benefit, risk, alternatives. He has had an opportunity to ask and have questions answered. Wewill schedule and proceed at his discretion. I appreciate the ongoing opportunity of assisting with the surgical care. We will alert preadmission testing that he has a pacemaker in place is on Eliquis. We will have him hold his Eliquis for 2 days preprocedure. Regarding the patient's extracranial carotid disease and peripheral vascular occlusive disease plan on obtaining carotid duplex imaging and PVRs with exercise. We will then phone contact the patient with results and any additional instructions. I appreciate the opportunity of assisting with the surgical care. Copy: Dr. Paul Mac I have examined the patient and the H&P has been reviewed. There are no clinicalchanges since date of exam. Richie Tan M.D., F.A.C.S. Richie Tan M.D., F.A.C.S. 11/30/23 0929 <Electronically signed by Richie Tan MD> Cosigner Signature (if applicable): CC: Dr. Paul aMc MD; Dr. Richie Tan MD~ Signed [facility] Work Phone: 1(127) 634-833903-18-2024 Procedure [facility] 11-30-2023 Procedure [facility]11-15-2023 History and physical note Author Donald Burt [facility] July 29, 2023 6:06pm Note Date/Time July 23, 2023 3 :01pm [facility] Medical Records Department [address] [place] [address] History & Physical Exam 07/23/23 1458 MR#: [id number] Acct: [id number] Name: MOO HOROWITZ Rep #:[id number] : 1945 78 From: Donald Burt MD PCP: Dr. 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 He is a gentleman with a history of hypertension, paroxysmal atrial fibrillation/flutter, and bradycardia Mobitz type II heart block status post biventricular pacemaker implantation placed in June 2015. His device check prior to office needs recommended replacement time. He will proceed with generator change. He denies chest, arm, jaw, or neck discomfort. He acknowledges palpitations that he describes as a skipping sensation. He acknowledges shortness of breath with activity. He denies shortness of breath at rest, orthopnea, cough, or PND. He denies bilateral lower extremity edema. He denies lightheadedness, dizziness, near-syncope, or syncope. He acknowledgescontinual fatigue. He denies urinary symptoms. 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 Essential (primary) hypertension Left bundle branch block (LBBB) Mobitz type II atrioventricular block Non-sustained ventricular tachycardia LORI (obstructive sleep apnea) Over weight Raynaud disease Schatzki's ring of distal esophagus Sinus bradycardia Surgical History Biventricular cardiac pacemaker in situ (07/13/15) History of carpal tunnel surgery of right wrist History of esophagogastroduodenoscopy (EGD) History of herniorrhaphy Family History Mother CAD (coronary artery disease)Father CAD (coronary artery disease)Brother Polycystic kidney disease Social History Smoking Status: Never smoker alcohol intake: never substance use type: does not use caffeine: Yes Type: carbonated beverages and tea ROS Const Const: Positive for fatigue; Negative for weakness, headache(s), daytime sleepiness or difficulty sleeping Eyes Eyes: Negative for change in vision ENT ENT: Negative for headache(s), dizziness or Nosebleed/epistaxis Cardio Chest Pain: No Palpitations: Yes feels like its: skipping Edema: None Resp Respiratory: Positive for SOB with activity; Negative for SOB at rest, SOB orthopnea\SOB lying down or Cough GI GI: Negative nausea, vomiting or heartburn Neuro Neuro: Negative for dizziness, lightheadedness, near syncope, headache(s) or weakness Endo Endo: Positive for fatigue Cardiology Exam Const Appearance: cooperative, healthy appearing, comfortable and no acute distress Nutritional Appearance: well nourished and overweight Orientation: alert, awake and oriented x3 Head Head: normal to inspection Ears: hearing grossly normal bilaterally Nose: external nose normal Face and Sinus: face symmetric Mouth: oral mucosae normal Eyes General: appearance normal, both eyes and all related structures Eyelids: eyelids normal EOM: EOM intact bilaterally Neck Neck: normal visual inspection and no JVD Carotids: normal carotid upstroke Chest Chest inspection: normal inspection of the chest, symmetric chest movement and normal respiratory effort; Negative cough Auscultation: Bilateral: Clear to Auscultation Cardio Rate: regular rate Rhythm: regular rhythm Heart sounds: S1 normal and S2 normal; Negative rub, gallop or murmur GI GI: normal to inspection Neuro General: patient alert, patient awake, patient oriented x3 and CN's II-XI intactbilaterally Skin Skin: no rashes or lesions noted Extremities Pulses: Normal: Right Posterior Tibial Pulse, Left Posterior Tibial Pulse, RightRadial Pulse and Left Radial Pulse Lower Extremity Edema: None: Bilateral Psych Psychological: normal affect Supplemental Info Supplemental Information Pharmacologic myocardial perfusion stress test 08/02/2021 Conclusion: Normal pharmacologic myocardial perfusion stress test. Preserved ejection fraction. Echocardiogram from 01/20/2022: Interpretation Summary Normal LV size. Left ventricular systolic function is normal. The estimated ejection fraction is 55 %. Stage 1 diastolic dysfunction. Contrast injection was performed. Echocardiogram 03/13/2016: Interpretation Summary Normal LV size. Left ventricular systolic function is normal. Estimate ejection fraction is 65%. ICD or pacer leads identified within the right ventricle. Structurally normal valves. Assessment and Plan Assessment and Plan (1) Essential (primary) hypertension: Status: Chronic Plan: Patient's blood pressure is well-controlled. He will continue verapamil therapyfor both heart rate and blood pressure control. We will continue to monitor. At the moment, he does not acknowledge significant side effects as he did note facial flushing and fatigue with diltiazem. He does acknowledge some sun exposure related issues with verapamil that we will monitor. (2) Biventricular cardiac pacemaker in situ: Status: Chronic Plan: Twelve-lead ECG on 07/16/2023 shows ventricular paced rhythm at 75 bpm. He will proceed with generator change. We will continue to monitor this with routine/scheduled follow-ups. (3) Atrial flutter: Status: Chronic Qualifiers: Atrial flutter type: unspecified Qualified Code(s): I48.92 - Unspecified atrial flutter Plan: His previous device check showed atrial fibrillation 0.1% with longest episode lasting approximately 38 minutes. This is a noted increase in duration comparedto previous. On account of such, he was started on Eliquis therapy. His [id number]- VASc score of 3 (age +2, HTN). We will continue to follow duration and frequency through device checks. He will continue with verapamil for rate control. He will continue with Eliquis for CVA protection. 07/29/23 1806 <Electronically signed by Donald Burt MD> Cosigner Signature (if applicable): 07/23/23 1501 <Electronically signed by Joaquin MÉNDEZ> CC: HONEY Ramirez; Dr. Donald Burt MD; Dr. Paul Mac MD~ Signed [facility] Work Phone: 1(577) 430-237406-27-2022 NoteHNO ID: [id number] Author: Conor Weaver PT Service: ? Author [...] Patient to be seen for Therapeutic exercise (39498);Neuromuscular re-education (95583);Manual therapy (53940);Therapeutic activities (10151);Self-mcfp management (16360);Patient/Family/Caregiver Education;Body Mechanics Training SUBJECTIVE: Patient Reason for [...] Minutes: 10 Total Juanita (more content not included)...[facility] [place]06-27-2022 History of Present illness Narrative* Conor Weaver, PT - 03/10/2022 4:19 PM EDT Episode Visit Count: 3 Therapist That Will [...] strength and symptom management that interfere with standing;be nding;heavy exertion;physical activities;lifting;recreational activities;working . Current prognosis is [...] Patient to be seen for Therapeutic exercise (12277);Neuromuscular re-education (82604);Manual therapy (07164);Therapeutic activities (85580);Self-mcfp management (71401);Patient/Family/CaregiverEducation;Body Mechanics Training SUBJECTIVE: Patient Reason for Visit: [...] 48 [facility] Weaver [facility] NoteHNO ID: [id number] Author: Conor Weaver PT Service: ? Author [...] toward set goals. PLAN FOR NEXT VISIT: [place] SUBJECTIVE: Patient Reason for Visit: Pt feels [...] Treatment Time Minutes (timed/untimed): 40 Conor Weaver [facility]06-20-2022 History of Present illness Narrative* Conor Weaver, PT - 03/03/2022 1:36 PM EDT Episode Visit Count: 2 Therapist That Will [...] toward set goals. PLAN FOR NEXT VISIT: [place] SUBJECTIVE: Patient Reason for Visit: Pt feels [...] HEP sheets to denote which exercises he needsto be doing after it was discovered he [...] 40 Conor Weaver PT [facility]22 NoteHNO ID: [id number] Author: Conor Weaver PT Service: ? Author [...] Planned: 8 Planned Treatment Interventions: Therapeutic exercise (10151);Neuromuscular re-education (66043);Manual therapy (54060);Therapeutic activities (36373);Self-mcfp management (98293);Patient/Family/Caregiver Education;Body Mechanics Training PLAN FOR NEXT VISIT: [...] PT Treatment Interventions: Thera (more content not included)...[facility] [place]06-02-2022 History of Present illness Narrative* Conor Weaver, PT - 02/13/2022 11:11 AM EDT Episode Visit Count: 1 Therapist That Will [...] Subgroup Classification based on: aberrant movements;segmental hinging;pain withtransitional movements Goals for Episode of Care: created [...] Planned: 8 Planned Treatment Interventions: Therapeutic exercise (52502);Neuromuscular re- education (78626);Manual therapy (57383);Therapeutic activities (01945);Self- mcfp management (48776);Patient/Family/Caregiver Education;Body Mechanics Training PLAN FOR NEXT VISIT: January trial traction if back pain continues. Progress core strengthening Patient demonstrates good understanding of plan of care and treatment. The above goals and plan of care were discussed and agreed upon by patient/family. SUBJECTIVE: Moo Horowitz is a 77 year old male seen today for LBP for 4 years, with recent lumbardecompression performed 01/23/2022. Pt still has some left [...] exercises and relating them to anatomical and kinesiologicalconcepts 7: Briefly discussed importance of body mechanics, [...] 45 Conor Weaver PT [facility] note* Diagnosis Onset Date Resolution Status Atrial flutter acute Encounter for pre-operative cardiovascular clearance acute Biventricular cardiac pacemaker in situ July 13, 2015 chronic Essential (primary) hypertension chronic Non-sustained ventricular tachycardia acute Biventricular cardiac pacemaker in situ July 13, 2015 chronic Left bundle branch block (LBBB) chronic Mobitz type II atrioventricular block chronic Sinus bradycardia [facility] Work Phone: 1(595) 731-175110-30-2015 Evaluation note* Diagnosis Onset Date Resolution Status Atrial flutter acute Non-sustained ventricular tachycardia acute Biventricular cardiac pacemaker in situ July 13, 2015 chronic Left bundle branch block (LBBB) chronic Mobitz type II atrioventricular block chronic Atrial flutter acute Biventricular cardiac pacemaker in situ July 13, 2015 chronic Essential (primary) hypertension [facility] Work Phone: 1(313) 123-382410-30-2015 Evaluation note* Diagnosis Onset Date Resolution Status Non-sustained ventricular tachycardia acute Atrial flutter chronic Biventricular cardiac pacemaker in situ July 13, 2015 chronic Left bundle branch block (LBBB) chronic Mobitz type II atrioventricular block chronic Sinus bradycardia chronic Atrial flutter chronic Biventricular cardiac pacemaker in situ July 13, 2015 chronic Essential (primary) hypertension [facility] Work Phone: 1(625) 305-521110-30-2015 Evaluation note* Diagnosis Onset Date Resolution Status Non-sustained ventricular tachycardia acute Atrial flutter chronic Biventricular cardiac pacemaker in situ July 13, 2015 chronic Left bundle branch block (LBBB) chronic Mobitz type II atrioventricular block chronic Sinus bradycardia chronic Non-sustained ventricular tachycardia acute Atrial flutter chronic Biventricular cardiac pacemaker in situ July 13, 2015 chronic Left bundle branch block (LBBB) chronic Mobitz type II atrioventricular block chronic Sinus bradycardia chronic Atrial flutter chronic Biventricular cardiac pacemaker in situ July 13, 2015 chronic Essential (primary) hypertension [facility] Work Phone: 1(974) 198-725210-30-2015 Evaluation note* Diagnosis Onset Date Resolution Status Non-sustained ventricular tachycardia acute Atrial flutter chronic Biventricular cardiac pacemaker in situ July 13, 2015 chronic Left bundle branch block (LBBB) chronic Mobitz type II atrioventricular block chronic Atrial flutter chronic Biventricular cardiac pacemaker in situ July 13, 2015 chronic Dyspnea chronic Essential (primary) hypertension chronic Carotid artery disease acute Peripheral vascular disease acute Personal history of colonic polyps acute LORI (obstructive sleep apnea) chronic [facility] Work Phone: Evaluation note* Diagnosis Chronic left-sided low back pain with left-sided sciatica- Primary [facility] Diagnosis Chronic left-sided low back pain with left-sided sciatica- Primary [facility]* Diagnosis Chronic left-sided low back pain with left-sided sciatica- Primary [facility]* Diagnosis Onset Date Resolution Status Carotid artery disease acute Peripheral vascular disease acute [facility] Work Phone: Evaluation note* Diagnosis Onset Date Resolution Status Facet arthritis of lumbosacral region acute Sacroiliac joint dysfunction of left side acute Atrial flutter acute Non-sustained ventricular tachycardia acute Biventricular cardiac pacemaker in situ July 13, 2015 chronic Left bundle branch block (LBBB) chronic Mobitz type II atrioventricular block chronic Sinus bradycardia chronic Facet arthritis of lumbosacral region acute Lower back pain acute [facility] Work Phone: Evaluation note* Diagnosis Onset Date Resolution Status Facet arthritis of lumbosacral region acute Sacroiliac joint dysfunction of left side acute Atrial flutter acute Non-sustained ventricular tachycardia acute Biventricular cardiac pacemaker in situ July 13, 2015 chronic Left bundle branch block (LBBB) chronic Mobitz type II atrioventricular block chronic Sinus bradycardia chronic Facet arthritis of lumbosacral region acute Lower back pain acute Atrial flutter acute Biventricular cardiac pacemaker in situ July 13, 2015 chronic Essential (primary) hypertension chronic Non-sustained ventricular tachycardia acute Biventricular cardiac pacemaker in situ July 13, 2015 chronic Left bundle branch block (LBBB) chronic Mobitz type II atrioventricular block chronic Sinus bradycardia chronic [facility] Work Phone: Reason for referral (narrative)No reason for referral information availableWTriHealth [facility] Work Phone: Summary Purpose Family History Relationship Condition Age at Onset Recorded Date/T junaid mother Coronary artery disease Unknown father Coronary artery disease Unknown brother Congenital polycystic kidney Unknown Advance Directives Advance Directive Response Recorded Date/ Time Advance Directives Yes December 06, 016 2:06pm Living Will No November 11 12:51pm Power of Animal Trainer Supervisor Yes November 11, 2021 12:51pm Advance Directive Response Recorded Date/ Time Advance Directives Yes May 1:38pm Living Will No June 03, 2022 1:38pm Power of Animal Trainer Supervisor Yes May 1:38pm Advance Directive Response Recorded Date/ Time Advance Directives Yes May 12:38pm Living Will No June 03, 2022 12:38pm Power of Animal Trainer Supervisor Yes May 12:38pm Advance Directive Response Recorded Date/ Time Advance Directives on File Yes Dece2022 10:51am Name of Medical Power of Animal Trainer Supervisor Alan Horowitz jeanette e August 17, 2023 10:51am Advance Directives Yes August 17, 2023 10:51am Living Will Yes August 17 10:51am Power of Animal Trainer Supervisor Yes August 17, 2023 10:51am Advance Directive Response Recorded Date/ Time Advance Directives on File Yes Dece2022 11:51am Name of Medical Power of Animal Trainer Supervisor Alan Horowitz jeanette e August 17, 2023 11:51am Name of Medical Power of Animal Trainer Supervisor ALAN HOROWITZ November 27, 2023 2:53pm Advance Directives Yes August 17, 2023 11:51am Living Will Yes November 27, 2023 2:53pm Power of Animal Trainer Supervisor Yes November 26 2:53pm Advance Directive Response Recorded Date/ Time Living Will Yes August 17 11:51am Do you have a Healthcare Power of Animal Trainer Supervisor? 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-P f/u SCREENING Reason for Visit Atrial flutter Encounter for pre-operative cardiovascular clearance Biventricular cardiac pacemaker in situ Essential (primary) hypertension Non-sustained ventricular tachycardia Biventricular cardiac pacemaker in situ Left bundle branch block (LBBB) Mobitz type II atrioventricular block Sinus bradycardia Chief Complaint CAROTID AND PAD POST SURGERY Reason for Visit Carotid artery disea se Peripheral vascular disease Chief Complaint POST SURGERY lumber spine xray REMOTE CHECK LBP Lumbar spine Reason for Visit Facet arthritis of l umbosacral region Sacroiliac joint dysfunction of left side Atrial flutter Non-sustained ventricular tachycardia Biventricular cardiac pacemaker in situ Left bundle branch block (LBBB) Mobitz type II atrioventricular block Sinus bradycardia Facet arthritis of lumbosacral region Lower back pain Chief Complaint POST SURGERY lumber spine xray REMOTE CHECK LBP Lumbar spine 6 M FU 3 mos remote PPM f/u Reason for Visit Facet arthritis of l umbosacral region Sacroiliac joint dysfunction of left side Atrial flutter Non-sustained ventricular tachycardia Biventricular cardiac pacemaker in situ Left bundle branch block (LBBB) Mobitz type II atrioventricular block Sinus bradycardia Facet arthritis of lumbosacral region Lower back pain Atrial flutter Biventricular cardiac pacemaker in situ Essential (primary) hypertension Non-sustained ventricular tachycardia Biventricular cardiac pacemaker in situ Left bundle branch block (LBBB) Mobitz type II atrioventricular block Sinus bradycardia Chief Complaint 3 mos 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-P f /u approaching RICHAR 6 m fu Reason for Visit Atrial flutter Non-sustained ventricular tachycardia Biventricular cardiac pacemaker in situ Left bundle branch block (LBBB) Mobitz type II atrioventricular block Atrial flutter Biventricular cardiac pacemaker in situ Essential (primary) hypertension Chief Complaint HEP C 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-P approaching RICHAR UPDATE H & P Reason for Visit Non-sustained ventri cular tachycardia Atrial flutter Biventricular cardiac pacemaker in situ Left bundle branch block (LBBB) Mobitz type II atrioventricular block Sinus bradycardia Atrial flutter Biventricular cardiac pacemaker in situ Essential (primary) hypertension Chief Complaint remote PPM f/u HEP C 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-P approaching RICHAR UPDATE H & P NORMAL BATTERY DEPLETION NORMAL BATTERY DEPLETION Reason for Visit Non-sustained ventri cular tachycardia Atrial flutter Biventricular cardiac pacemaker in situ Left bundle branch block (LBBB) Mobitz type II atrioventricular block Sinus bradycardia Non-sustained ventricular tachycardia Atrial flutter Biventricular cardiac pacemaker in situ Left bundle branch block (LBBB) Mobitz type II atrioventricular block Sinus bradycardia Atrial flutter Biventricular cardiac pacemaker in situ Essential (primary) hypertension Chief Complaint Pacer Check Remote NORMAL BATTERY DEPLETION 1 W WOUND CHECK Pacer Check Remote 1 y fu C-Scope CAD/PVD 1 Y FU Reason for Visit Non-sustained ventri cular tachycardia Atrial flutter Biventricular cardiac pacemaker in situ Left bundle branch block (LBBB) Mobitz type II atrioventricular block Atrial flutter Biventricular cardiac pacemaker in situ Dyspnea Essential (primary) hypertension Carotid artery disease Peripheral vascular disease Personal history of colonic polyps LORI (obstructive sleep apnea) Chief Complaint Admit Date Pacer Check Remote August 26, 2024 2:26am 1 Y FU October 12, 2024 1 :18pm Pacer Check Remote November 25, 2024 1:4 8am Reason for Visit Admit Date Pedal edema October 12, 2024 1 :18pm LORI (obstructive sleep apnea) October 122024 1:18pm Chief Complaint Admit Date 1 Y FU October 12, 2024 1 :18pm Pacer Check Remote November 25, 2024 1:4 8am Pacer Check Remote December 03, 2024 10: 00am Pacer Check Remote January 18, 2025 9:00am ANNUAL IN CLINIC/MH @ January 18, 2025 1 0:39am 6 M FU/ESTEFANÍA @ 10:30 January 18, 2025 10:41a m Reason for Visit Admit Date Pedal edema October 12, 2024 1 :18pm LORI (obstructive sleep apnea) October 122024 1:18pm Non-sustained ventricular tachycardia Ma y 2024 10:39am Biventricular cardiac pacemaker in situ January 18, 2025 10:39am Left bundle branch block (LBBB) January 18, 2025 10:39am Mobitz type II atrioventricular block Ma y 2024 10:39am Atrial flutter January 18, 2025 10:41a m Biventricular cardiac pacemaker in situ January 18, 2025 10:41am Essential (primary) hypertension January 10:41am Chief Complaint Admit Date Pacer Check Remote November 25, 2024 1:4 8am Pacer Check Remote December 03, 2024 10: 00am Pacer Check Remote January 18, 2025 9:00am ANNUAL IN CLINIC/MH @ January 18, 2025 1 0:39am 6 M FU/ESTEFANÍA @ 10:30 January 18, 2025 10:41a m Pacer Check Remote February 24, 2025 2:09 pm Reason for Visit Admit Date Non-sustained ventricular tachycardia Ma y 2024 10:39am Biventricular cardiac pacemaker in situ January 18, 2025 10:39am Left bundle branch block (LBBB) January 18, 2025 10:39am Mobitz type II atrioventricular block Ma y 2024 10:39am Atrial flutter January 18, 2025 10:41a m Biventricular cardiac pacemaker in situ January 18, 2025 10:41am Essential (primary) hypertension January 10:41am Chief Complaint Admit Date Pacer Check Remote November 25, 2024 1:4 8am Pacer Check Remote December 03, 2024 10: 00am Pacer Check Remote January 18, 2025 9:00am ANNUAL IN CLINIC/MH @ January 18, 2025 1 0:39am 6 M FU/ESTEFANÍA @ :January 18, 2025 10:41a m Pacer Check Remote February 24, 2025 2:09 pm LUMBAR SPINE March 16, 2025 2:11p m Chief Complaint Admit Date Pacer Check Remote January 18, 2025 9:00am ANNUAL IN CLINIC/MH @ January 18, 2025 1 0:39am 6 M FU/ESTEFANÍA @ :January 18, 2025 10:41a m Pacer Check Remote February 24, 2025 2:09 pm LUMBAR SPINE March 16, 2025 2:11p m Radiculopathy, lumbar region April 12, 2025 12:20pm LUMBAR SPINE April 17, 2025 1:1 6pm Reason for Visit Admit Date Non-sustained ventricular tachycardia Ma y 2024 10:39am Biventricular cardiac pacemaker in situ January 18, 2025 10:39am Left bundle branch block (LBBB) January 18, 2025 10:39am Mobitz type II atrioventricular block Ma y 2024 10:39am Atrial flutter January 18, 2025 10:41a m Biventricular cardiac pacemaker in situ January 18, 2025 10:41am Essential (primary) hypertension January 10:41am Degenerative disc disease (D DD) of lumbar region with discogenic back pain March 16, 2025 2:11pm Foot drop, left March 16, 2025 2:11p m Reason for Visit Admit Date Non-sustained ventricular tachycardia Ma y 2024 10:39am Biventricular cardiac pacemaker in situ January 18, 2025 10:39am Left bundle branch block (LBBB) January 18, 2025 10:39am Mobitz type II atrioventricular block Ma y 2024 10:39am Atrial flutter January 18, 2025 10:41a m Biventricular cardiac pacemaker in situ January 18, 2025 10:41am Essential (primary) hypertension January 10:41am Degenerative disc disease (D DD) of lumbar region with discogenic back pain March 16, 2025 2:11pm Foot drop, left March 16, 2025 2:11p m Degenerative disc disease (D DD) of lumbar region with discogenic back pain April 17, 2025 1:16pm Foot drop, left April 17, 2025 1:1 6pm Lumbar stenosis with neurogenic claudica tion April 17, 2025 1:16pm Chief Complaint Admit Date Pacer Check Remote January 18, 2025 9:00am ANNUAL IN CLINIC/MH @ 11 January 18, 2025 1 0:39am 6 M FU/ESTEFANÍA @ 10:30 January 18, 2025 10:41a m Pacer Check Remote February 24, 2025 2:09 pm LUMBAR SPINE March 16, 2025 2:11p m Radiculopathy, lumbar region April 12, 2025 12:20pm LUMBAR SPINE April 17, 2025 1:1 6pm See Clinical Note/Sees JR @ 3:30 May 10, 2025 2:48pm Surgical Clearance/Sees Estefanía @ April 152024 2:49pm Reason for Visit Admit Date Non-sustained ventricular tachycardia Ma y 2024 10:39am Biventricular cardiac pacemaker in situ January 18, 2025 10:39am Left bundle branch block (LBBB) January 18, 2025 10:39am Mobitz type II atrioventricular block Ma y 2024 10:39am Atrial flutter January 18, 2025 10:41a m Biventricular cardiac pacemaker in situ January 18, 2025 10:41am Essential (primary) hypertension January 10:41am Degenerative disc disease (D DD) of lumbar region with discogenic back pain March 16, 2025 2:11pm Foot drop, left March 16, 2025 2:11p m Degenerative disc disease (D DD) of lumbar region with discogenic back pain April 17, 2025 1:16pm Foot drop, left April 17, 2025 1:1 6pm Lumbar stenosis with neurogenic claudica tion April 17, 2025 1:16pm Atrial flutter May 10, 2025 2: 49pm Biventricular cardiac pacemaker in situ May 10, 2025 2:49pm Essential (primary) hypertension May 10, 2025 2:49pm Reason for Visit Admit Date Non-sustained ventricular tachycardia Ma y 2024 10:39am Biventricular cardiac pacemaker in situ January 18, 2025 10:39am Left bundle branch block (LBBB) January 18, 2025 10:39am Mobitz type II atrioventricular block Ma y 2024 10:39am Atrial flutter January 18, 2025 10:41a m Biventricular cardiac pacemaker in situ January 18, 2025 10:41am Essential (primary) hypertension January 10:41am Degenerative disc disease (D DD) of lumbar region with discogenic back pain March 16, 2025 2:11pm Foot drop, left March 16, 2025 2:11p m Degenerative disc disease (D DD) of lumbar region with discogenic back pain April 17, 2025 1:16pm Foot drop, left April 17, 2025 1:1 6pm Lumbar stenosis with neurogenic claudica tion April 17, 2025 1:16pm Atrial flutter May 10, 2025 2: 48pm Biventricular cardiac pacemaker in situ May 10, 2025 2:48pm Left bundle branch block (LBBB) April 152024 2:48pm Mobitz type II atrioventricular block Au charito 2024 2:48pm Atrial flutter May 10, 2025 2: 49pm Biventricular cardiac pacemaker in situ May 10, 2025 2:49pm Essential (primary) hypertension May 10, 2025 2:49pm Chief Complaint Admit Date Pacer Check Remote January 18, 2025 9:00am ANNUAL IN CLINIC/MH @ 11 January 18, 2025 1 0:39am 6 M FU/ESTEFANÍA @ 10:30 January 18, 2025 10:41a m Pacer Check Remote February 24, 2025 2:09 pm LUMBAR SPINE March 16, 2025 2:11p m Radiculopathy, lumbar region April 12, 2025 12:20pm LUMBAR SPINE April 17, 2025 1:1 6pm See Clinical Note/Sees JR @ 3:30 May 10, 2025 2:48pm Surgical Clearance/Sees Estefanía @ April 152024 2:49pm lumbar spine May 12, 2025 1: 09pm Reason for Visit Admit Date Non-sustained ventricular tachycardia Ma y 2024 10:39am Biventricular cardiac pacemaker in situ January 18, 2025 10:39am Left bundle branch block (LBBB) January 18, 2025 10:39am Mobitz type II atrioventricular block Ma y 2024 10:39am Atrial flutter January 18, 2025 10:41a m Biventricular cardiac pacemaker in situ January 18, 2025 10:41am Essential (primary) hypertension January 10:41am Degenerative disc disease (D DD) of lumbar region with discogenic back pain March 16, 2025 2:11pm Foot drop, left March 16, 2025 2:11p m Degenerative disc disease (D DD) of lumbar region with discogenic back pain April 17, 2025 1:16pm Foot drop, left April 17, 2025 1:1 6pm Lumbar stenosis with neurogenic claudica tion April 17, 2025 1:16pm Atrial flutter May 10, 2025 2: 48pm Biventricular cardiac pacemaker in situ May 10, 2025 2:48pm Left bundle branch block (LBBB) April 152024 2:48pm Mobitz type II atrioventricular block Au charito 2024 2:48pm Preoperative cardiovascular examination May 10, 2025 2:49pm Atrial flutter May 10, 2025 2: 49pm Biventricular cardiac pacemaker in situ May 10, 2025 2:49pm Essential (primary) hypertension May 10, 2025 2:49pm Reason for Visit Admit Date Non-sustained ventricular tachycardia Ma y 2024 10:39am Biventricular cardiac pacemaker in situ January 18, 2025 10:39am Left bundle branch block (LBBB) January 18, 2025 10:39am Mobitz type II atrioventricular block Ma y 2024 10:39am Atrial flutter January 18, 2025 10:41a m Biventricular cardiac pacemaker in situ January 18, 2025 10:41am Essential (primary) hypertension January 10:41am Degenerative disc disease (D DD) of lumbar region with discogenic back pain March 16, 2025 2:11pm Foot drop, left March 16, 2025 2:11p m Degenerative disc disease (D DD) of lumbar region with discogenic back pain April 17, 2025 1:16pm Foot drop, left April 17, 2025 1:1 6pm Lumbar stenosis with neurogenic claudica tion April 17, 2025 1:16pm Atrial flutter May 10, 2025 2: 48pm Biventricular cardiac pacemaker in situ May 10, 2025 2:48pm Left bundle branch block (LBBB) April 152024 2:48pm Mobitz type II atrioventricular block [facility] 2024 2:48pm Preoperative cardiovascular examination May 10, 2025 2:49pm Atrial flutter May 10, 2025 2: 49pm Biventricular cardiac pacemaker in situ May 10, 2025 2:49pm Essential (primary) hypertension May 10, 2025 2:49pm Degenerative disc disease (D DD) of lumbar region with discogenic back pain May 12, 2025 1:09pm Foot drop, left May 12, 2025 1: 09pm Lumbar stenosis with neurogenic claudica tion May 12, 2025 1:09pm Chief Complaint Admit Date Pacer Check Remote February 24, 2025 2:09 pm LUMBAR SPINE March 16, 2025 2:11p m Radiculopathy, lumbar region April 12, 2025 12:20pm LUMBAR SPINE April 17, 2025 1:1 6pm Pacer Check Remote May 10, 2025 9: 00am See Clinical Note/Sees JR @ 3:30 May 10, 2025 2:48pm Surgical Clearance/Sees Estefanía @ April 152024 2:49pm lumbar spine May 12, 2025 1: 09pm Reason for Visit Admit Date Degenerative disc disease (D DD) of lumbar region with discogenic back pain March 16, 2025 2:11pm Foot drop, left March 16, 2025 2:11p m Degenerative disc disease (D DD) of lumbar region with discogenic back pain April 17, 2025 1:16pm Foot drop, left April 17, 2025 1:1 6pm Lumbar stenosis with neurogenic claudica tion April 17, 2025 1:16pm Atrial flutter May 10, 2025 2: 48pm Biventricular cardiac pacemaker in situ May 10, 2025 2:48pm Left bundle branch block (LBBB) April 152024 2:48pm Mobitz type II atrioventricular block [facility] 2024 2:48pm Preoperative cardiovascular examination May 10, 2025 2:49pm Atrial flutter May 10, 2025 2: 49pm Biventricular cardiac pacemaker in situ May 10, 2025 2:49pm Essential (primary) hypertension May 10, 2025 2:49pm Degenerative disc disease (D DD) of lumbar region with discogenic back pain May 12, 2025 1:09pm Foot drop, left May 12, 2025 1: 09pm Lumbar stenosis with neurogenic claudica tion May 12, 2025 1:09pm Additional Source Comments (unrecognized sect ion and content) No Status Records FoundNo Status Records FoundNo Status Records FoundNo Status Records FoundNo Status Records Found INFORMATION SOURCE (unrecogn ized section and content) DATE CREATED AUTHOR 09/27/2019 [facility] ([place]) DATE CREATED AUTHOR AUTHOR'S ORGANIZ ATION 01/01/2021 [facility] DATE CREATED AUTHOR AUTHOR'S ORGANIZ ATION 02/01/2022 [facility] DATE CREATED AUTHOR AUTHOR'S ORGANIZ ATION 03/10/2022 [facility] [place] DATE CREATED AUTHOR AUTHOR'S ORGANIZ ATION 05/22/2025 [facility] Goals (unrecognized section and content) Goals may be documented in a n alternate sectionGoals may be documented in an alternate sectionGoals may be documented in an alternate sectionGoals may be documented in an alternate sectionGoals may be documented in an alternate sectionGoals may be documented in an alternate sectionGoals may be documented in an alternate sectionGoals may be documented in an alternate sectionGoals may be documented in an alternate sectionGoals may be documented in an alternate sectionGoals may be documented in an alternate sectionGoals may be documented in an alternate sectionGoals may be documented in an alternate sectionGoals may be documented in an alternate sectionGoals may be documented in an alternate sectionGoals may be documented in an alternate sectionGoals may be documented in an alternate sectionGoals may be documented in an alternate sectionGoals may be documented in an alternate section Source Comments (unrecognize d section and content) In the event this informatio n is protected by the Federal Confidentiality of Alcohol and Drug Abuse Patient Records regulations: The Federal rules restrict any use of the information to criminally investigate or prosecute any alcohol or drug abuse patient.[facility] the event this information is protected by the Federal Confidentiality of Alcohol and Drug Abuse Patient Records regulations: The Federal rules restrict any use of the information to criminally investigate or prosecute any alcohol or drug abuse patient.[facility] the event this information is protected by the Federal Confidentiality of Alcohol and Drug Abuse Patient Records regulations: The Federal rules restrict any use of the information to criminally investigate or prosecute any alcohol or drug abuse patient.[facility] Reason for Visit (unrecogniz ed section and content) Reason Comments PT Progress Note Specialty Diagnoses / Procedures Referred By Contac t Referred To Contact Physical Therapy / PHYSICAL THERAPY Diagnoses back pain Procedures NEW RS PT SPINE Self Conor Weaver PT Referral ID Status Reason Start Date Expiration Date V isits Requested Visits Authorized [id number] Authorized 09/14/2021 09/13/2022 99 99 Reason Comments Physical Therapy Reason Comments PT Eval Care Teams (unrecognized sec tion and content) Health Teacher Relationship Specialty Start Date End Date Joaquin Grady MD PCP - General 03/04/05 Health Teacher Relationship Specialty Start Date End Date Joaquin Grady MD PCP - General 03/04/05 Health Teacher Relationship Specialty Start Date End Date Joaquin Grady MD PCP - General 03/04/05 Team Status: Active Member Role Status Dates Dr. Joaquin Melo MD Family Provider Active Dr. Paul Mac MD Primary Care Provider Active Team Status: Inactive Member Role Status Dates Dr. Paul Mac MD Primary Care Provider, Referring Provider Active Joaquin Ramirez STAFF INTERPRETER, STAFF INTERPRETER-C Attending Provider Active Team Status: Inactive Member Role Status Dates Dr. Paul Mac MD Primary Care Provider, Referring Provider Active Sharon Gunn Attending Provider Active Team Status: Inactive Member Role Status Dates Dr. Paul Mac MD Primary Care Provider, Attending Provider Active Team Status: Active Member Role Status Dates Dr. Paul Mac MD Primary Care Provider Active Dr. Jairo Ring MD Attending Provider, Referring Provider Active Team Status: Inactive Member Role Status Dates Dr. Paul Mac MD Primary Care Provider Active Sharon Gunn Active Dr. Donald Burt MD Attending Provider, Referring Pro vider Active Team Status: Active Member Role Status Dates Dr. Paul Mac MD Primary Care Provider Active Dr. Donald Burt MD Attending Provider, Other Provide r Active Team Status: Inactive Member Role Status Dates Dr. Paul Mac MD Primary Care Provider Active Dr. Donald Burt MD Attending Provider, Referring Pro vider Active Team Status: Inactive Member Role Status Dates Dr. Paul Mac MD Primary Care Provider, Referring Provider Active Dr. Jose Aceves DO Attending Provider Active Team Status: Inactive Member Role Status Dates Dr. Paul Mac MD Primary Care Provider, Referring Provider Active Dr. Donald Burt MD Active Joaquin Ramirez NP, STAFF INTERPRETER-C Attending Provider Active Team Status: Inactive Member Role Status Dates Dr. Paul Mac MD Primary Care Provider, Referring Provider Active Dr. Richie Tan MD Attending Provider Active Team Status: Inactive Member Role Status Dates Dr. Paul Mac MD Primary Care Provider Active Dr. Donald Burt MD Attending Provider Active Team Status: Active Member Role Status Dates Dr. Paul Mac MD Primary Care Provider Active Dr. Richie Tan MD Attending Provider, Referring Provider Active Team Status: Active Member Role Status Dates Dr. Paul Mac MD Primary Care Provider, Referring Provider Active Dr. Richie Tan MD Attending Provider, Other Prov ider Active Team Status: Inactive Member Role Status Dates Dr. Paul Mac MD Primary Care Provider Active Dr. Richie Tan MD Attending Provider, Referring Provider Active Team Status: Inactive Member Role Status Dates Dr. Paul Mac MD Primary Care Provider Active Start: August 26, 2024 End: August 26, 2024 Dr. Donald Burt MD Attending Provider Active S tart: August 26, 2024 End: August 26, 2024 Dr. Donald Burt MD Referring Provider Active S tart: August 26, 2024 End: August 26, 2024 Team Status: Inactive Member Role Status Dates Dr. Paul Mac MD Primary Care Provider Active Start: October 12, 2024 End: October 12, 2024 Dr. Paul Mac MD Referring Provider Active Start: October 12, 2024 End: October 12, 2024 Debbie Asher STAFF INTERPRETER-C Attending Provider Active Start: October 12, 2024 End: October 12, 2024 Team Status: Inactive Member Role Status Dates Dr. Paul Mac MD Primary Care Provider Active Start: November 25, 2024 End: November 25, 2024 Dr. Donald Burt MD Attending Provider Active S tart: November 25, 2024 End: November 25, 2024 Dr. Donald Burt MD Referring Provider Active S tart: November 25, 2024 End: November 25, 2024 Team Status: Inactive Member Role Status Dates Dr. Paul Mac MD Primary Care Provider Active Start: December 12, 2024 End: December 12, 2024 Dr. Paul Mac MD Attending Provider Active Start: December 12, 2024 End: December 12, 2024 Dr. Paul Mac MD Referring Provider Active Start: December 12, 2024 End: December 12, 2024 Team Status: Inactive Member Role Status Dates Dr. Paul Mac MD Primary Care Provider Active Start: December 03, 2024 End: December 03, 2024 Dr. Donald Burt MD Attending Provider Active S tart: December 03, 2024 End: December 03, 2024 Team Status: Inactive Member Role Status Dates Dr. Paul Mac MD Primary Care Provider Active Start: January 18, 2025 End: January 18, 2025 Dr. Donald Burt MD Attending Provider Active S tart: January 18, 2025 End: January 18, 2025 Team Status: Inactive Member Role Status Dates Dr. Paul Mac MD Primary Care Provider Active Start: January 18, 2025 End: January 18, 2025 Dr. Paul Mac MD Referring Provider Active Start: January 18, 2025 End: January 18, 2025 Sharon Gunn Attending Provider Active Start: 2024 End: January 18, 2025 Team Status: Inactive Member Role Status Dates Dr. Paul Mac MD Primary Care Provider Active Start: January 18, 2025 End: January 18, 2025 Dr. Paul Mac MD Referring Provider Active Start: January 18, 2025 End: January 18, 2025 Dr. Driss Westbrook MD Attending Provider Active Start: January 18, 2025 End: January 18, 2025 Team Status: Inactive Member Role Status Dates Dr. Paul Mac MD Primary Care Provider Active Start: January 18, 2025 End: January 18, 2025 Dr. Donald Burt MD Attending Provider Active S tart: January 18, 2025 End: January 18, 2025 Dr. Donald Burt MD Referring Provider Active S tart: January 18, 2025 End: January 18, 2025 Team Status: Inactive Member Role Status Dates Dr. Paul Mac MD Primary Care Provider Active Start: February 24, 2025 End: February 24, 2025 Dr. Donald Burt MD Attending Provider Active S tart: February 24, 2025 End: February 24, 2025 Team Status: Active Member Role/Relationship Status Dates Dr. Joaquin Melo MD Family Provider Active Dr. Paul Mac MD Primary Care Provider Active Team Status: Inactive Member Role/Relationship Status Dates Dr. Paul Mac MD Primary Care Provider Active Start: November 25, 2024 End: November 25, 2024 Dr. Donald Burt MD Attending Provider Active S tart: November 25, 2024 End: November 25, 2024 Dr. Donald Burt MD Referring Provider Active S tart: November 25, 2024 End: November 25, 2024 Team Status: Inactive Member Role/Relationship Status Dates Dr. Paul Mac MD Primary Care Provider Active Start: December 03, 2024 End: December 03, 2024 Dr. Donald Burt MD Attending Provider Active S tart: December 03, 2024 End: December 03, 2024 Team Status: Inactive Member Role/Relationship Status Dates Dr. Paul Mac MD Primary Care Provider Active Start: December 12, 2024 End: December 12, 2024 Dr. Paul Mac MD Attending Provider Active Start: December 12, 2024 End: December 12, 2024 Dr. Paul Mac MD Referring Provider Active Start: December 12, 2024 End: December 12, 2024 Team Status: Inactive Member Role/Relationship Status Dates Dr. Paul Mac MD Primary Care Provider Active Start: January 18, 2025 End: January 18, 2025 Dr. Donald Burt MD Attending Provider Active S tart: January 18, 2025 End: January 18, 2025 Team Status: Inactive Member Role/Relationship Status Dates Dr. Paul Mac MD Primary Care Provider Active Start: January 18, 2025 End: January 18, 2025 Dr. Donald Burt MD Attending Provider Active S tart: January 18, 2025 End: January 18, 2025 Dr. Donald Burt MD Referring Provider Active S tart: January 18, 2025 End: January 18, 2025 Team Status: Inactive Member Role/Relationship Status Dates Dr. Paul Mac MD Primary Care Provider Active Start: January 18, 2025 End: January 18, 2025 Dr. Paul Mac MD Referring Provider Active Start: January 18, 2025 End: January 18, 2025 Dr. Driss Wesbtrook MD Attending Provider Active Start: January 18, 2025 End: January 18, 2025 Team Status: Inactive Member Role/Relationship Status Dates Dr. Paul Mac MD Primary Care Provider Active Start: February 24, 2025 End: February 24, 2025 Dr. Donald Burt MD Attending Provider Active S tart: February 24, 2025 End: February 24, 2025 Dr. Donald Burt MD Referring Provider Active S tart: February 24, 2025 End: February 24, 2025 Team Status: Inactive Member Role/Relationship Status Dates Dr. Paul Mac MD Primary Care Provider Active Start: March 16, 2025 End: March 16, 2025 Dr. Paul Mac MD Referring Provider Active Start: March 16, 2025 End: March 16, 2025 ERICA Carvalho Attending Provider Active Star t: March 16, 2025 End: March 16, 2025 Team Status: Active Member Role/Relationship Status Dates Dr. Paul Mac MD Primary Care Provider Active Team Status: Inactive Member Role/Relationship Status Dates Dr. Paul Mac MD Primary Care Provider Active Start: January 18, 2025 End: January 18, 2025 Dr. Donald Burt MD Attending Provider Active S tart: January 18, 2025 End: January 18, 2025 Team Status: Inactive Member Role/Relationship Status Dates Dr. Paul Mac MD Primary Care Provider Active Start: January 18, 2025 End: January 18, 2025 Dr. Donald Burt MD Attending Provider Active S tart: January 18, 2025 End: January 18, 2025 Dr. Donald Burt MD Referring Provider Active S tart: January 18, 2025 End: January 18, 2025 Team Status: Inactive Member Role/Relationship Status Dates Dr. Paul Mac MD Primary Care Provider Active Start: January 18, 2025 End: January 18, 2025 Dr. Paul Mac MD Referring Provider Active Start: January 18, 2025 End: January 18, 2025 Dr. Driss Westbrook MD Attending Provider Active Start: January 18, 2025 End: January 18, 2025 Team Status: Inactive Member Role/Relationship Status Dates Dr. Paul Mac MD Primary Care Provider Active Start: February 24, 2025 End: February 24, 2025 Dr. Donald Burt MD Attending Provider Active S tart: February 24, 2025 End: February 24, 2025 Dr. Donald Burt MD Referring Provider Active S tart: February 24, 2025 End: February 24, 2025 Team Status: Inactive Member Role/Relationship Status Dates Dr. Paul Mac MD Primary Care Provider Active Start: March 16, 2025 End: March 16, 2025 Dr. Paul Mac MD Referring Provider Active Start: March 16, 2025 End: March 16, 2025 ERICA Carvalho Attending Provider Active Star t: March 16, 2025 End: March 16, 2025 Team Status: Active Member Role/Relationship Status Dates Dr. Paul Mac MD Primary Care Provider Active Start: April 12, 2025 Dr. Shalom Barraza MD Attending Provider Active Start: April 12, 2025 Dr. Shalom Barraza MD Referring Provider Active Start: April 12, 2025 Team Status: Inactive Member Role/Relationship Status Dates Dr. Paul Mac MD Primary Care Provider Active Start: April 17, 2025 End: April 17, 2025 Dr. Paul Mac MD Referring Provider Active Start: April 17, 2025 End: April 17, 2025 ERICA Carvalho Attending Provider Active Star t: April 17, 2025 End: April 17, 2025 Team Status: Inactive Member Role/Relationship Status Dates Dr. Paul Mac MD Primary Care Provider Active Start: April 12, 2025 End: April 12, 2025 Dr. Shalom Barraza MD Attending Provider Active Start: April 12, 2025 End: April 12, 2025 Dr. Shalom Barraza MD Referring Provider Active Start: April 12, 2025 End: April 12, 2025 Team Status: Active Member Role/Relationship Status Dates Dr. Paul Mac MD Primary Care Provider Active Start: May 10, 2025 Dr. Paul Mac MD Referring Provider Active Start: May 10, 2025 Sharon Gunn Attending Provider Active Start: [facility] 2024 Team Status: Inactive Member Role/Relationship Status Dates Dr. Paul Mac MD Primary Care Provider Active Start: May 10, 2025 End: May 10, 2025 Dr. Paul Mac MD Referring Provider Active Start: May 10, 2025 End: May 10, 2025 Joaquin Ramirez STAFF INTERPRETER, STAFF INTERPRETER-C Attending Provider Active S tart: May 10, 2025 End: May 10, 2025 Team Status: Inactive Member Role/Relationship Status Dates Dr. Paul Mac MD Primary Care Provider Active Start: May 10, 2025 End: May 10, 2025 Dr. Paul Mac MD Referring Provider Active Start: May 10, 2025 End: May 10, 2025 Sharon Gunn Attending Provider Active Start: [facility]2024 End: May 10, 2025 Team Status: Active Member Role/Relationship Status Dates Dr. Paul Mac MD Primary Care Provider Active Start: May 11, 2025 Dr. Paul Mac MD Attending Provider Active Start: May 11, 2025 Dr. Paul Mac MD Referring Provider Active Start: May 11, 2025 Team Status: Inactive Member Role/Relationship Status Dates Dr. Paul Mac MD Primary Care Provider Active Start: May 12, 2025 End: May 12, 2025 Dr. Paul Mac MD Referring Provider Active Start: May 12, 2025 End: May 12, 2025 Dr. Johann Andrews MD Attending Provider Active Start: May 12, 2025 End: May 12, 2025 Team Status: Inactive Member Role/Relationship Status Dates Dr. Paul Mac MD Primary Care Provider Active Start: May 11, 2025 End: May 11, 2025 Dr. Paul Mac MD Attending Provider Active Start: May 11, 2025 End: May 11, 2025 Dr. Paul Mac MD Referring Provider Active Start: May 11, 2025 End: May 11, 2025 Team Status: Active Member Role/Relationship Status Dates Dr. Paul Mac MD Primary Care Provider Active Start: May 17, 2025 Dr. Johann Andrews MD Attending Provider Active Start: May 17, 2025 Team Status: Inactive Member Role/Relationship Status Dates Dr. Paul Mac MD Primary Care Provider Active Start: February 24, 2025 End: February 24, 2025 Dr. Donald Burt MD Attending Provider Active S tart: February 24, 2025 End: February 24, 2025 Dr. Donald Burt MD Referring Provider Active S tart: February 24, 2025 End: February 24, 2025 Team Status: Inactive Member Role/Relationship Status Dates Dr. Paul Mac MD Primary Care Provider Active Start: March 16, 2025 End: March 16, 2025 Dr. Paul Mac MD Referring Provider Active Start: March 16, 2025 End: March 16, 2025 ERICA Carvalho Attending Provider Active Star t: March 16, 2025 End: March 16, 2025 Team Status: Inactive Member Role/Relationship Status Dates Dr. Paul Mac MD Primary Care Provider Active Start: April 12, 2025 End: April 12, 2025 Dr. Shalom Barraza MD Attending Provider Active Start: April 12, 2025 End: April 12, 2025 Dr. Shalom Barraza MD Referring Provider Active Start: April 12, 2025 End: April 12, 2025 Team Status: Inactive Member Role/Relationship Status Dates Dr. Paul Mac MD Primary Care Provider Active Start: April 17, 2025 End: April 17, 2025 Dr. Paul Mac MD Referring Provider Active Start: April 17, 2025 End: April 17, 2025 ERICA Carvalho Attending Provider Active Star t: April 17, 2025 End: April 17, 2025 Team Status: Inactive Member Role/Relationship Status Dates Dr. Paul Mac MD Primary Care Provider Active Start: May 10, 2025 End: May 10, 2025 Dr. Donald Burt MD Attending Provider Active S tart: May 10, 2025 End: May 10, 2025 Team Status: Inactive Member Role/Relationship Status Dates Dr. Paul Mac MD Primary Care Provider Active Start: May 10, 2025 End: May 10, 2025 Dr. Paul Mac MD Referring Provider Active Start: May 10, 2025 End: May 10, 2025 Sharon Gunn Attending Provider Active Start: [facility] 2024 End: May 10, 2025 Team Status: Inactive Member Role/Relationship Status Dates Dr. Paul Mac MD Primary Care Provider Active Start: May 10, 2025 End: May 10, 2025 Dr. Paul Mac MD Referring Provider Active Start: May 10, 2025 End: May 10, 2025 Joaquin Ramirez STAFF INTERPRETER, STAFF INTERPRETER-C Attending Provider Active S tart: May 10, 2025 End: May 10, 2025 Team Status: Inactive Member Role/Relationship Status Dates Dr. Paul Mac MD Primary Care Provider Active Start: May 11, 2025 End: May 11, 2025 Dr. Paul Mac MD Attending Provider Active Start: May 11, 2025 End: May 11, 2025 Dr. Paul Mac MD Referring Provider Active Start: May 11, 2025 End: May 11, 2025 Team Status: Inactive Member Role/Relationship Status Dates Dr. Paul Mac MD Primary Care Provider Active Start: May 12, 2025 End: May 12, 2025 Dr. Paul Mac MD Referring Provider Active Start: May 12, 2025 End: May 12, 2025 Dr. Johann Andrews MD Attending Provider Active Start: May 12, 2025 End: May 12, 2025 Team Status: Active Member Role/Relationship Status Dates Dr. Paul Mac MD Primary Care Provider Active Start: May 17, 2025 Dr. Johann Andrews MD Attending Provider Active Start: May 17, 2025 FOR RECORDS PERTAINING TO PATIENTS WHO ARE [...] BE BASED ON THE PRIMARY CLINICAL RECORDS. [facility] [employer] provides no warranty or guarantee of the accuracy or completeness of information in this document.
[2025-05-23] MEDS: Lactated Ringers 1,000 ML 15 ML IV (06:30)
[2025-05-23] MEDS: Magnesium 1 GM over 15 mins IV (06:31)
--- NOTE | 2025-05-23 06:47 | PCM.PRE.AN2 ---
ASA Classification* ASA Classification ASA Classification: 3 Assessment & Plan Anesthesia* Anesthesia Assessment Anesthesia Assessment: Discussed sedation and/or anesthesia options, risks, benefits, and alternatives with patient/parents/legal guardian/POA. Questions invited. The patient/parents/legal guardian/POA seems to understand and agrees to proceed with anesthesia plan. Reviewed the physical assessment, medical history, allergy history and patient home medications list prior to surgery/procedure/anesthetic and documented any changes. Performed airway and anesthesia risk assessments. Anesthesia Type Anesthesia Type: General (Consider GlideScope intubation.) History Source History Obtained from:: Patient and Chart Anesthesia Focused Assessment* Temperature: 97.2 F Pulse Rate: 80 Blood Pressure: 99/63 Respiratory Rate: 16 Pulse Ox: 100 Oxygen Delivery Method: Room Air Airway Assessment Mouth opens: >3 cm Mallampati Score: IV Teeth Condition: Caps/Crowns (Patient has several crowns. They are tight.) Neck Range of motion (ROM): Limited ROM (Severe Restriction) Labs Anesthesia Preop lab: CBC WBC 7.8 K/mm3 (4.4-11.0) 05/11/25 14:21 05/11/25 RBC 4.12 M/mm3 (4.6-6.2) L 05/11/25 14:21 05/11/25 Hgb 13.0 g/dL (13.0-16.5) 05/11/25 14:21 05/11/25 Hct 40.2 % (40-54) 05/11/25 14:21 05/11/25 Plt Count 217 K/mm3 (150-450) 05/11/25 14:21 05/11/25 CHEMISTRY Potassium 5.1 mmol/L (3.3-5.1) 05/11/25 14:21 05/11/25 Sodium 139 mmol/L (133-145) 05/11/25 14:21 05/11/25 Magnesium 2.2 mg/dL (1.5-2.2) 05/17/25 14:56 05/17/25 BUN 27 mg/dL (4-19) H 05/11/25 14:21 05/11/25 Creatinine 1.16 mg/dL (0.70-1.20) 05/11/25 14:21 05/11/25 Glucose 83 mg/dL (70-99) 05/11/25 14:21 05/11/25 TSH 1.72 uIU/mL (0.358-3.74) 11/30/23 16:27 11/30/23 COAG PT 12.9 SECONDS (11.7-14.9) 04/12/25 12:25 04/12/25 Pre-Assessment Diagnosis/Proposed Procedure Planned Operative Procedure(s): ERAS, 360 Lumbar Fusion L4-5 Anesthesia History 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 When Was Last Pacemaker Check 11/30/15 VIA PHONE 06/03/22 13:38 QUESTION #4 FULL TEXT: You/Your Family Experience fever (hyperthermia) with Anesthesia Last Oral Intake Last Oral intake: Last Oral Intake NPO since 03:00 05/23/25 06:15 Meds taken in AM with sips of Yes 05/23/25 06:15 water? 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 Female No 05/16/25 10:40 HX of Motion Sickness No 05/16/25 10:40 HX of N/V After Surgery No 05/16/25 10:40 Non-Smoker Yes 05/16/25 10:40 Duration of Surgery greater Yes 05/16/25 10:40 than 60 minutes Number of Risk Factors 2 05/16/25 10:40 PONV Score Moderate Risk 05/16/25 10:40 Height & Weight Height & Weight: Anesthesia: Height & Weight Height 5 ft 05/23/25 06:15 Weight: 88.632 kg 05/23/25 06:15 Body Mass Index (BMI) 38.1 05/23/25 06:15 Respiratory Assessment Respiratory Assessment - 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 Has anyone observed you stop breathing during sleep? STOP Results Positive 05/16/25 10:40 QUESTION #5 FULL TEXT : Do you snore loudly (louder than talking or can be heard through closed doors)? 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 Specify any problems Hx of Preganancy in last 3 N/A 05/16/25 10:40 Months Nurse Filling Out Transfusion MGRIFFITH 05/16/25 10:40 & Questions: Date: 05/16/25 05/16/25 10:40 Time: 10:42 05/16/25 10:40 Patient unable to answer at this time (ie. 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 well cable tool operator Hx Now No 05/16/25 10:40 Gestational Age (in weeks): EDC: Hx Hx Para Hx Section SAB No 05/16/25 10:40 Active Medications Active Medications: Current Medications Generic Name Dose Route Start Last Admin Trade Name Noah PRN Reason Stop Dose Admin Acetaminophen 1,000 mg 05/23/25 07:30 05/23/25 06:18 Acetaminophen 500 Mg Tablet PO 05/23/25 07:31 1,000 mg PREOP ONE Administration Cefazolin Sodium 2 gm/ Sodium 110 mls @ 150 mls/hr 05/23/25 07:30 Chloride IV 05/23/25 08:13 INTRAOP ONE Tranexamic Acid 1,000 mg/ 110 mls @ 440 mls/hr 05/23/25 07:30 Sodium Chloride IV 05/23/25 07:44 INTRAOP ONE Tranexamic Acid 1,000 mg/ 110 mls @ 440 mls/hr 05/23/25 07:30 Sodium Chloride IV 05/23/25 07:44 INTRAOP ONE Magnesium Sulfate 1 gm/ 102 mls @ 408 mls/hr 05/23/25 07:30 05/23/25 06:31 Dextrose IV 05/23/25 07:44 408 mls/hr PREOP ONE Administration Lactated Ringer's 1,000 mls @ 15 mls/hr 05/23/25 05:45 05/23/25 06:30 IV 15 mls/hr .Q48H ROULA Administration Insulin Human Lispro 1 - 6 unit 05/23/25 07:30 Insulin Lispro 100 Unit/Ml Insuln.Pen SC 05/23/25 18:00 Q4H PRN PRN BG>/= 180, SEE PROTOCOL Protocol PFSH Medical History Ambulates with cane High cholesterol Gastric reflux Sleep apnea Hypertension Shortness of breath on exertion Leg cramps History of pacemaker History of rheumatic fever History of atrial fibrillation Wears glasses Excessive bleeding Arthritis Difficulty swallowing Non-smoker CPAP (continuous positive airway pressure) dependence History of echocardiogram History of stress test Cardiology follow-up encounter Non-sustained ventricular tachycardia Left bundle branch block (LBBB) Raynaud disease Essential (primary) hypertension Over weight LORI (obstructive sleep apnea) 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 Sinus bradycardia Mobitz type II atrioventricular block Cardiomyopathy in disease classified elsewhere Home Medications ?Medication ?Instructions ?Recorded ?Last Taken ?Type alprazolam 0.5 mg tablet 0.5 mg PO QHS anxiety 12/07/15 05/22/25 History acetaminophen 500 mg tablet 1,000 mg PO DAILY PAIN 12/25/22 05/22/25 History (Tylenol Extra Strength) ipratropium bromide 21 mcg (0.03 2 spray intranasal DAILY CONGESTION 09/23/23 05/23/25 05:00 History %) nasal spray metoprolol succinate 50 mg 50 mg PO BID HEART RATE #60 tabs 01/18/25 05/23/25 05:00 Rx tablet,extended release 24 hr apixaban 5 mg tablet (Eliquis) 5 mg PO BID BLOOD THINNER #60 tabs 03/27/25 05/20/25 Rx cyclobenzaprine 10 mg tablet 10 mg PO TID PRN muscle spasm #30 04/26/25 05/22/25 Rx tabs losartan 25 mg tablet 25 mg PO QHS HTN 05/10/25 05/22/25 History losartan 50 mg tablet 50 mg PO BID HTN 05/10/25 05/23/25 05:00 History meloxicam 15 mg tablet 15 mg PO .QOD INFLAMATION 05/10/25 05/16/25 History tramadol 50 mg tablet 50 mg PO TID PRN pain 05/10/25 Unknown History rosuvastatin 20 mg tablet 20 mg PO QODAY HLD 05/16/25 05/21/25 History simethicone 250 mg capsule (Gas-X) 250 mg PO DAILY PRN abdominal 05/16/25 Unknown History distention Allergy/AdvReac Type Severity Reaction Status Date / Time diltiazem AdvReac Intermediate Facial Verified 05/23/25 06:04 flushing and fatigue prednisone AdvReac Mild Other Verified 05/23/25 06:04 carvedilol (From Coreg) AdvReac face Verified 05/23/25 06:04 tingling Family History Mother CAD (coronary artery disease) Father CAD (coronary artery disease) Brother Polycystic kidney disease Surgical History History of appendectomy History of colonoscopy Biventricular cardiac pacemaker in situ (07/13/15) History of herniorrhaphy History of carpal tunnel surgery of right wrist History of esophagogastroduodenoscopy (EGD) Social History Smoking Status: Never smoker alcohol intake: never substance use type: does not use caffeine: Yes Type: carbonated beverages and tea additional social history: Denies daily use of aspirin or ibuprofen. Review of Systems (Anesthesia) ROS Narrative System reviewed and no additional complaints, except as documented.
--- NOTE | 2025-05-23 07:16 | HP.PCM_ITS ---
History and Physical Date of Admission: 05/23/25 MR#: [id number] Acct: [id number] Name: MOO ORTEZ Rep #: [id number] : 1945 Provider: Dr. Johann Andrews MD Age/Sex: 80/M Location: [facility] [place] Status: Signed Intake Vital Signs 04/17/2513:16 05/10/2515:36 Height 5 ft 8 in 5 ft 8 in Intake Visit Reasons: lumbar spine Chief Complaint: pre op lumbar spine Is patient in pain?: Yes (lumbar spine ) Pain scale (1-10): 7 Allergies diltiazem Adverse Reaction (Intermediate, Verified 05/12/25 13:51) Facial flushing and fatiguecarvedilol (From Coreg) Adverse Reaction (Verified 05/12/25 13:51) face tingling Medications ?Medication ?Instructions ?Recorded ?Confirmed ?Type alprazolam 0.5 mg tablet 0.5 mg PO QHS anxiety 12/07/15 05/12/25 History acetaminophen 500 mg tablet 1,000 mg PO DAILY 12/25/22 05/12/25 Hist ory (Tylenol Extra Strength) ipratropium bromide 21 mcg (0.03 2 spray intranasal DAILY 09/23/23 History %) nasal spray metoprolol succinate 50 mg 50 mg PO BID #60 tabs 01/18/25 05/12/25 Rx tablet,extended release 24 hr apixaban 5 mg tablet (Eliquis) 5 mg PO BID #60 tabs 03/27/25 05/12/25 R x rosuvastatin 20 mg tablet 20 mg PO Q OTHER DAY #45 tabs 03/27/25 0 05/12/25 Rx cyclobenzaprine 10 mg tablet 10 mg PO TID PRN muscle spasm #30 05/12/25 Rx tabs losartan 25 mg tablet 25 mg PO .COMPLEX 05/10/25 05/12/25 Hist ory losartan 50 mg tablet 50 mg PO .COMPLEX 05/10/25 05/12/25 Hist ory meloxicam 15 mg tablet 15 mg PO .every other day 05/10/2505/12 History tramadol 50 mg tablet 50 mg PO TID PRN 05/10/25 05/12/25 Histo ry Have you fallen in the past year?: Yes [facility] Medical History Wears glasses Excessive bleeding Arthritis Difficulty swallowing Non-smoker CPAP (continuous positive airway pressure) dependence History of echocardiogram History of stress test Cardiology follow-up encounter Non-sustained ventricular tachycardia Left bundle branch block (LBBB) Raynaud disease Essential (primary) hypertension Over weight LORI (obstructive sleep apnea) 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 Sinus bradycardia Mobitz type II atrioventricular block Cardiomyopathy in disease classified elsewhere Surgical History History of appendectomy History of colonoscopy Biventricular cardiac pacemaker in situ (07/13/15) History of herniorrhaphy History of carpal tunnel surgery of right wrist History of esophagogastroduodenoscopy (EGD) Family History Mother CAD (coronary artery disease)Father CAD (coronary artery disease)Brother Polycystic kidney disease Social History Smoking Status: Never smoker alcohol intake: never substance use type: does not use caffeine: Yes Type: carbonated beverages and tea additional social history: Denies daily use of aspirin or ibuprofen. HPI lumbar spine Details: This documentation accurately reflects the service provided and the decisions made by me, Dr. Johann Andrews MD 05/12/25 [id number]. Part of today?s visit was documented by [ ], acting as scribe. MOO ORTEZ is a 80 year old M here today for a post operative visit for an L4-5 anterior posterior fusion scheduled on 05-23-25. The patient is a 80-year-old male presenting with lumbar disc herniation and associated symptoms. He reports left-sided weakness and pain radiating from the back to the toes, particularly affecting the big toe, present for about two and a half months. The pain began after lifting a suitcase from a van post-vacation and has been severe since. 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 He denies previous back surgeries but has had hernia repair and appendectomy. He has been using a cane since symptom onset and reports no history of diabetes or smoking. He is on Eliquis, prescribed by a bridge teacher, and has a pacemaker placed about ten years ago. - Musculoskeletal: Reports left-sided weakness and pain radiating from the back to the toes, particularly affecting the big toe. - Neurological: Reports foot drop and left-sided weakness. - Cardiovascular: Denies history of diabetes or smoking. Attestation: Documentation on this patient encounter was supported using ambient scribe technology/ voice AI technology. The patient consented to recording for the purpose of documenting the encounter. Provider reviewed content of the generated note prior to signature. 04/17/25: MOO ORTEZ is a 80 year old M here today for ct review. Patient had a CT scan on 04/12/2025. He would like to go over the CT results to see what the next step is. Patient had an injection in his lower back a few years ago. He saw Dr. Stafford at pain management. Patient states that the injection he had gotten didn't help and lasted for about 2 days. He hasn't had any recent injections. Patient hasn't really done any physical therapy. He thinks Dr. Sifuentes had him do a couple sessions, but he states that the physical therapy didn't help with the pain. Patient states he think he did his stretches at home. HPI from 03/16/25: MOO ORTEZ is a 80 year old M here today for his lumbar spine. He states that about 3 weeks ago he had a flare up of sciatica in his left leg. He denies having pain in the leg but has been having weakness which is new to him. He states that he feels that his left leg function is not as good as his right leg. When he lifts his left foot towards him it doesn't come up very far compared to the right side. He does have pain in the left side of his lower back that he has had for many years. he did bring a disc today with imaging on it from [facility]. Denies numbness, tingling or other associated symptoms. He states that the left leg kind of feels heavy compared to the right side. Says that he has a left-sided groin pain and pain that goes down the side in the back of the left leg. Sitting alleviates his pain. He denies any right sided involvement. He is scheduled to have a CT scan of his lower back that was ordered by Dr. Barraza. He denies previous surgery on his back. He did have a fall in his home 1.5-2 weeks ago due to the leg. He did not get evaluated after his fall. He denied any increase of pain in his back following the fall. He is taking Meloxicam, Tramadol and Cyclobenzaprine for his pain which does help him. He has seen pain management in the past and had his last injection 4-[address] Car but states that the injections weren't helpful. He states that he has seen 3 spine surgeons in the past and they have all told him to ot have his back operated on but never got a good explanation on why. He has done PT 3-4 years ago for his lower back but states it wasn't helpful. He states that he doesn't mind getting the flares of sciatica but is concerned as this one has not subsided. He has a cane and has used it in the past. No diabetes, hx of pacemaker, takes Eliquis, sees cardiology. Ortho Exam General General: Yes no acute distress Neurologic: Yes alert and Yes oriented x3 Psychologic: Yes reasonable and appropriate Spine SPINE TESTING CERVICAL THORACIC LUMBAR Musculoskeletal Strength 0=absent - 5=normal Details: Neurological exam of the lower extremities shows grade 3 left dorsiflexion, all other muscle groups shows 5 power. Normal sensations across all dermatomes. No hyperreflexia. No midline or paraspinal tenderness. Coding Level of Care Code Off vis,est,level 4 Diagnoses Degenerative disc disease (DDD) of lumbar region with discogenic back pain and leg pain M51.362 Lumbar stenosis with neurogenic claudication M48.062 Foot drop, left M21.372 Time Spent (min) 35 Assessment and Plan Assessment and Plan (1) Degenerative disc disease (DDD) of lumbar region with discogenic back pain and leg pain: Status: Acute (2) Lumbar stenosis with neurogenic claudication: Status: Acute (3) Foot drop, left: Status: Acute Plan Again reviewed prior lumbar x-rays from [facility]. These x-rays were done on February 22, 2025. X-rays show a multilevel disc height loss throughout the lumbar spine, no significant instability, no fractures. Reviewed CT myelogram of the lumbar spine done April 12, 2025 which showed L4-5 moderate spinal canal stenosis and moderate spinal canal stenosis at L3-4. 1. Lumbar disc herniation at L4-5 - Surgical intervention planned to relieve nerve pressure and stabilize the spine. - The procedure involves removing the herniated disc fragment, inserting a spacer, and using screws and rods for stabilization. - Postoperative mobility is emphasized to prevent complications. 2. Lumbar instability - Addressed concurrently with the disc herniation surgery to ensure spinal stability and prevent further nerve compression. 3. Foot drop - Expected to improve post-surgery, though complete recovery is not guaranteed. - Physical therapy will be initiated postoperatively to aid recovery. 4. Degenerative disc disease - Managed as part of the surgical intervention for the herniated disc and instability. 5. Pacemaker management - Eliquis to be stopped three days before surgery and resumed two to three days post-surgery, balancing stroke risk and surgical bleeding risk. - Stop taking Eliquis three days before surgery and resume two to three days after surgery. - Engage in postoperative mobility as soon as possible to prevent complications. - Attend outpatient physical therapy after the two-week postoperative visit. - Avoid heavy lifting and excessive bending for the first three months post- surgery. Explained the imaging findings in detail. At this time discussed options with the patient which includes more conservative treatment with injections by pain management versus surgery. Due to the patient's worsening back pain and left- sided leg pain he wishes to proceed with surgical intervention at this time. Discussed options with the patient today which includes fusion versus laminectomy. Because of the patient's back pain being his primary issue versus the leg pain discussed that the fusion procedure would be the most beneficial to him. Discussed this procedure in detail and explained the risks, benefits and alternatives. The risks of surgery include but are not limited to infection, bleeding, injury to nerves or vessels, need for further surgery, ileus, vascular injury, visceral injury, DVT, pulmonary embolism, pneumonia, atelectasis, cardiopulmonary event, pseudoarthrosis, hardware failure, gait abnormality, adjacent segment degeneration. Discussed post-surgery restrictions in detail such as no bending, lifting, or twisting. Answered all questions to the patient?s satisfaction. Patient understands and agrees to proceed with surgery. Consent was signed.Follow up two weeks post operatively or sooner if pain, swelling, numbness or associated symptoms, or concerns develop. All questions answered. Patient in agreement of plan.
--- NOTE | 2025-05-23 07:30 | RAD_ITS ---
PROCEDURE: LUMBAR SPINE 2 OR 3 VIEWS 05/23/2025 REASON FOR EXAM: 360 LUMBAR FUSION L4-5 TECHNIQUE: Procedure Code: RADSPLL Modality: DX Procedure: LUMBAR SPINE 2 OR 3 VIEWS Fluoroscopy time: 82 seconds Total images: 10 COMPARISON: April 12, 2025, June 20, 2022 FINDINGS: It is assumed there are 5 lumbar type vertebral bodies. Fluoroscopic spot images were obtained with a small [id number] over the lower lumbar spine. Initial images show localization of the L4/5 disc space with subsequent disc spacer placed. This is followed by pedicle screws and rods at L4 and L5. An additional screw in the anterolateral aspect of L4 is present. Alignment is anatomic. RAD/Lumbar Spine 2 or 3 Views IMPRESSION: Fluoroscopic localization and guidance. Correlate with procedural note. Reading Location: [id number]
[2025-05-23] MEDS: Lidocaine 1% (5 ml sdv) 5 ML Vial 8 ML IV (07:43)
[2025-05-23] MEDS: fentaNYL 100 MCG/2 ML Ampul IV (08:48)
[2025-05-23] MEDS: TRANEXAMIC ACID 1,000 MG/10 ML ML 2000 MG IV (11:17)
[2025-05-23] MEDS: Cefazolin 1 GM/5 ML Vial 4 GM IV (11:28)
--- NOTE | 2025-05-23 11:48 | PCM.OPRPT ---
Procedures Musculoskeletal [id number]: Other Procedure See Report Operative Report (Standard) Operative Information Date of Procedure: 05/23/25 Pre-Operative Diagnosis: L4-5 disc degeneration, recurrent disc herniation, stenosis with neurogenic claudication, left foot drop Post-Operative Diagnosis: Same Surgery/Procedure Performed: L4-5 oblique lumbar body fusion social work instructor: Yes Fitness Leader: Beth Gunderson Tasks completed by malt specifications control assistant: Closing, Removing tissue, Hemostasis: Electrocautery and Retracting Type of Anesthesia: General RN Documented Start/Stop Times: Operation Date: 05/23/25 07:30 Case Time Into Pre-Op 05/23/25 05:36 Out of Pre-Op 05/23/25 07:26 Anesthesia Start 05/23/25 07:37 Into Room 05/23/25 07:37 Procedure Start 05/23/25 08:16 Procedure End 05/23/25 11:41 Anesthesia End 05/23/25 11:46 Out of Room 05/23/25 11:46 Procedure Start Time: 08:16 Procedure Stop Time: 11:41 Select all DRAINS/GRAFTS/IMPLANTS that apply: Graft Graft details: Allograft cancellous chips, autologous iliac crest bone marrow aspirate and Implanted device Implanted device details: DePuy cougar lateral lumbar interbody cage?peek Estimated Blood Loss: 150 cc Specimen collected: No Description of surgery: Preoperative diagnosis: L4-5 disc degeneration, recurrent disc herniation, stenosis with neurogenic claudication, left foot drop Postoperative diagnosis: Same Name of procedures L4-5 oblique lumbar interbody fusion (OLIF), minimally invasive left sided approach, lateral decubitus: ? L4-5 anterolateral spinal fusion ? L4-5 insertion of cage ? Bone graft aspirate left iliac crest separate incision ? Allograft cancellous chips Attending Surgeon: Dr. Johann Andrews Estimated blood loss: 150 mL Anesthesia: General Complications: None Indications: Patient is a 80-year-old pleasant gentleman who has had a long history of low back pain and left fourth and right lower extremity radiation, difficulty walking distances, left foot weakness. Xrays & CT myelogram revealed L4-5 disc degeneration, with possible left paracentral disc herniation and lateral recess stenosis, postsurgical changes of left laminotomy. Due to the significant persistent weakness of the left foot and persistent pain not improving with nonsurgical treatment, the patient elected to undergo surgical decompression & fusion. All surgical options were discussed with the patient including anterior and posterior approaches. All risks and benefits associated with the procedure were explained to the patient. The risks include but are not limited to infection, bleeding, injury to nerves and vessels including major vessels like IVC and aorta, persistent paresthesia, persistent pain, dural tear, need for further procedures, adjacent segment degeneration, pseudoarthrosis, hardware failure, retrograde ejaculation, paralytic ileus, etc. Procedure: The patient was identified in the preoperative holding suite using Unique patient identifiers. Skin was marked, consent was reviewed, and all questions were answered. The patient was then brought back to the operative room. A surgical timeout was performed to make sure correct procedure was being done on the correct patient and all operative room staff were on the same page. General endotracheal anesthesia was then given to the patient. Lama catheter was inserted. The patient was then carefully positioned in right lateral decubitus position with the left side up on a regular OR table. Axillary roll was placed and all bony prominences were well- padded. Hip positioners were placed in the posterior buttocks and anterior sternal area. The surgical area was prepped and draped in usual fashion. Preoperative antibiotic was injected IV as preoperative antibiotic. A final timeout was then again done just before starting the procedure. A 2 inch incision oblique was taken in the left lower quadrant of the abdomen 2 fingerbreadths away from the iliac crest and the lower ribs. Sharp dissection with Bovie was carried out up to the fascia covering the external oblique. The external oblique, internal oblique and transversus abdominis muscles were split along the muscle fibers and retroperitoneal space was entered. Sponge sticks were utilized to move the bowel and peritoneum njk-[id number]-mam-way and psoas muscle was exposed staying within the retroperitoneal plane. Dashwireframe retractor system was positioned and the retractor blade was applied onto the psoas. The interval between psoas and midline structures was developed and appropriate retractors were placed. Once adequate interval was cleared, a disc space was identified and a marker x-ray was taken. This identified the L4-5 disc level. Annulotomy was done with a long handled knife. Pituitary was used to remove disc material. Curettes were used to prepare the endplates. Disc space spreaders were utilized to distract and increase the disc height. Near complete discectomy was performed. Significant venous bleeding was noticed from the deeper end of the disc anteriorly which prompted packing and discussion with vascular surgery. By the time Dr. Ward vascular surgery came in, the packing had adequately controlled the bleeding. Gelfoam packs were removed and no active bleeding was noticed in the disc space. Dr. Ward did scrub in and performed a thorough check to make sure no active bleeding was present. Decision was made not to perform the contralateral annulotomy. Trials of serially increasing sizes were used. A Jamshidi needle was used to aspirate bone marrow from the left anterior iliac crest through a separate incision and this aspirate was mixed with the allograft bone chips. A Depuy [place] cage of size of the 18 x 50 x 12 mm with 15 degrees lordosis was packed with corticocancellous allograft bone chips mixed with bone marrow aspirate. This was inserted into the L4-5 disc space. AP and lateral C-arm pictures were taken to confirm good position of the cage. Some bone chips were also packed around the cages. Screw with washer was placed into the lower L4 body with a washer partially covering the cage at L4-5. Hemostasis was confirmed. The retractor blades were removed. Closure was done in layers with a continuous strand of # 1 Vicryl in all muscle layers. 2-0 Vicryl was used for subcutaneous tissue and 4-0 for Monocryl for the skin. Steri-Strips were applied and 4 x 4 gauze and Tegaderm were applied. Roll Machine Operator Beth Gunderson PA-C. My physician merchandising assistant was a vital part of this case. They were important in appropriate retraction during the case, and protection of soft tissues during the procedure. Their intimate knowledge of the case and my steps aided in safe and expedient completion of the procedure as well as appropriate position of the patient during the surgery. They were also vital in assisting with closure under my direct supervision. Surgical Findings: See operative note Complications Complications: No
--- NOTE | 2025-05-23 11:54 | PCM.POST.ANE ---
Anesthesia: Postop Eval I Current Vital Signs Temperature: 98.3 F Pulse Rate: 70 Blood Pressure: 126/67 Respiratory Rate: 14 Pulse Ox: 99 Assessment Airway patent: Yes Spontaneous unlabored respirations: Yes nausea: No Vomiting: No Anesthesia Complication: No Fluid Hydration Crystalloid volume administer (ml): 1,700 Total IV fluid infused: 1,700 Progress Note Anesthesia document: Postop Eval 1 completed: Yes
--- NOTE | 2025-05-23 11:56 | PCM.OPRPT ---
Procedures Musculoskeletal [id number]-29xxx: Other Procedure See Report Operative Report (Standard) Operative Information Date of Procedure: 05/23/25 Pre-Operative Diagnosis: L4-5 disc degeneration, recurrent disc herniation, stenosis with neurogenic claudication, left foot drop Post-Operative Diagnosis: Same Surgery/Procedure Performed: L4-5 posterior spine instrumented fusion outgoing inspector: Yes Open Die Inspector: Beth Gunderson Tasks completed by first aid nurse: Closing, Implanting device, Hemostasis: Electrocautery and Retracting Type of Anesthesia: General RN Documented Start/Stop Times: Operation Date: 05/23/25 07:30 Case Time Into Pre-Op 05/23/25 05:36 Out of Pre-Op 05/23/25 07:26 Anesthesia Start 05/23/25 07:37 Into Room 05/23/25 07:37 Procedure Start 05/23/25 08:16 Procedure End 05/23/25 11:41 Anesthesia End 05/23/25 11:46 Out of Room 05/23/25 11:46 Procedure Start Time: 08:16 Procedure Stop Time: 11:41 Select all DRAINS/GRAFTS/IMPLANTS that apply: Graft Graft details: Allograft cancellous chips and Implanted device Implanted device details: DePuy Viper prime pedicle screw instrumentation Estimated Blood Loss: 150 cc Specimen collected: No Description of surgery: Preoperative diagnosis: L4-5 disc degeneration, recurrent disc herniation, stenosis with neurogenic claudication, left foot drop Postoperative diagnosis: Same Name of procedures: L4-5 posterior percutaneous pedicle screw instrumented fusion, prone: ? L4-5 posterior spinal fusion 90359 ? L4-5 posterior pedicle screw instrumentation [id number] ? Allograft cancellous chips [id number] Attending Surgeon: Dr. Johann Andrews Estimated blood loss: 150 mL (total for entire case) Anesthesia: General Complications: None Description of procedure: After the anterior procedure was complete, the patient was then turned supine. The patient was then transferred to Owen table in prone position. Back was prepped and draped in usual fashion. C-arm AP view was then taken. C-arm was positioned in a way that L4 was centralized and superior endplate of was parallel to the beam. Spinous process was centered between the pedicles. Midline was marked with skin marker and lateral borders of the pedicles were also marked. Skin marker was also utilized to yousif transversely across the middle of the pedicles at L4. 2 longitudinal paramedian incisions of 1 inch were placed. The fascia was incised vertically. Finger dissection was utilized to palpate the transverse process and facet joint. Viper Prime screws with towers were inserted and docked onto the transverse processes. This was then slowly moved medially to reach the superior articular process of L4. This was then confirmed on C-arm and then a mallet was utilized to drive the trocar into the pedicle going up to the medial wall of the pedicle on AP view. This was performed both sides. C-arm lateral view confirmed that the tip of the trocar was in the vertebral body, and the screw was advanced into the pedicle and vertebral body. This was repeated similarly at L5 bilaterally. Screw sizes were 7 x 50 mm at L4 and L5 on both sides. 45 mm precontoured titanium 5.5 mm lordotic refugio on both sides were then passed through the screw extensions and reduced down to the screws with the help of [employer] Viper instrumentation system on both sides. AP and lateral view of the C-arm showed good positioning of the screws and cages. Final tightening with the torque screwdriver was then completed. Because of the adequate near complete discectomy anteriorly with removal of some extruded fragments in the anterior procedure, decision was made not to perform posterior decompression on the left. Hawthorne was utilized to roughen the facet joint at L4-5 on the right side. Cancellous allograft bone chips mixed with bone marrow aspirate were then placed over this decorticated area. Hemostasis was achieved. Closure was done in layers with 0 Vicryls for the fascia, 2-0 Vicryls for the subcutaneous tissue, and Monocryl for the skin. Dermabond was applied. Dressings were applied covered with Tegaderm. The patient was then turned supine onto a hospital bed. The patient was extubated and taken to PACU in stable condition. The patient tolerated the procedure well and no complications occurred. Depuy [place] cage & Viper Prime minimally invasive pedicle screw instrumentation system was utilized in this case. No dural tear was identified intraoperatively. I was present for the entirety of the case and performed the surgery. Auditor In Charge eBth Gunderson PA-C. My physician perinatal breastfeeding assistant was a vital part of this case. They were important in appropriate retraction during the case, and protection of soft tissues during the procedure. Their intimate knowledge of the case and my steps aided in safe and expedient completion of the procedure as well as appropriate position of the patient during the surgery. They were also vital in assisting with closure under my direct supervision. Surgical Findings: See operative note Complications Complications: No
--- NOTE | 2025-05-23 12:33 | POSTOPAN2_ITS ---
Anesthesia Postop Eval I Sum Postop Eval Completion status Anesthesia document: Postop Eval 1 completed: Yes Anesthesia Postop Eval I Summary Anesthesia Postop Eval I Summary: Anesthesia Postop Eval I: Assessment Summary Airway patent Yes 05/23/25 11:54 [email or web address] Spontaneous unlabored Yes 05/23/25 11:54 [email or web address] respirations Mental status nausea No 05/23/25 11:54 [email or web address] Vomiting No 05/23/25 11:54 [email or web address] Anesthesia Postop Eval I: Fluid Summary Crystalloid volume administer 1,700 05/23/25 11:54 [email or web address] (ml) Colloids volume administered ( ml) Blood Product volume administered (ml) Total IV fluid infused 1,700 05/23/25 11:54 [email or web address] Anesthesia Postop Eval I: Summary Notes Anesthesia Complication No 05/23/25 11:54 [email or web address] Anesthesia Complication Comment: Post-operative progress note Anesthesia: Postop Eval II Evaluation Mental status: Awake and Calm Pain Level: 0 nausea: No Vomiting: No Complications Anesthesia Complication: No
--- NOTE | 2025-05-23 12:33 | PCM.POSTANE2 ---
Anesthesia Postop Eval I Sum Postop Eval Completion status Anesthesia document: Postop Eval 1 completed: Yes Anesthesia Postop Eval I Summary Anesthesia Postop Eval I Summary: Anesthesia Postop Eval I: Assessment Summary Airway patent Yes 05/23/25 11:54 [email or web address] Spontaneous unlabored Yes 05/23/25 11:54 [email or web address] respirations Mental status nausea No 05/23/25 11:54 [email or web address] Vomiting No 05/23/25 11:54 [email or web address] Anesthesia Postop Eval I: Fluid Summary Crystalloid volume administer 1,700 05/23/25 11:54 [email or web address] (ml) Colloids volume administered ( ml) Blood Product volume administered (ml) Total IV fluid infused 1,700 05/23/25 11:54 [email or web address] Anesthesia Postop Eval I: Summary Notes Anesthesia Complication No 05/23/25 11:54 [email or web address] Anesthesia Complication Comment: Post-operative progress note Anesthesia: Postop Eval II Evaluation Mental status: Awake and Calm Pain Level: 0 nausea: No Vomiting: No Complications Anesthesia Complication: No
--- NOTE | 2025-05-23 14:35 | PCM.CONS.GEN ---
Assessment & Plan Assessment/Plan (1) Lumbar stenosis with neurogenic claudication: PLAN: Plan Patient is a 80-year-old male who presented to [facility] on 05/23/2025 for planned lumbar fusion procedure. Medicine consulted postoperatively for medical management. 1. L4-5 disc generation with recurrent disc herniation, stenosis with neurogenic claudication and left foot drop ? Orthopedic surgery primary. S/p L4-5 oblique lumbar fusion procedure with Dr. Andrews on 05/23. Tolerated procedure well. Postoperative pain control, DVT prophylaxis and further management per orthopedics. PT/OT/case management consulted. Follow-up a.m. labs. 2. 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 Follows with [place] [facility], last office visit on 05/10. Had pacemaker device evaluation on 05/10 that showed no AT/AF episodes. Was okay to hold Eliquis temporarily for surgery; will defer timing of restarting Eliquis to orthopedics. In normal sinus rhythm and normotensive postoperatively. Okay to resume home Toprol, losartan and rosuvastatin. 3. Anxiety/insomnia ? Okay to continue home low-dose Xanax at night. 4. LORI ? Continue PAP therapy at night. Total clinical time spent by myself addressing the patient's medical issues, reviewing all the data, and collaborating with patient's care team: 36 minutes. HPI Consult Data Date of Consult: 05/23/25 HPI Narrative Reason for Consultation: Postoperative medical management HPI Narrative: MOO ORTEZ, is a 80 M who presented to [facility] on 05/23/2025 for planned orthopedic procedure. Medicine consulted postoperatively right management. Patient medical history significant for a 4?5 disc generation with recurrent disc herniation, stenosis with neurogenic claudication and left foot drop. He had an L4-5 oblique lumbar body fusion procedure done with Dr. Andrews today. Tolerated procedure well. I saw the patient at bedside this afternoon. Patient was sitting back fairly comfortably and his bedside chair and conversing normally. Noted that he had been moved from bed to the bedside chair with the assistance of nursing and did have some low back pain with this. He was told he was going to work with physical therapy shortly after I saw him and was looking forward to doing this. He denied any other acute concerns at this time. [facility] Medical History Ambulates with cane High cholesterol Gastric reflux Sleep apnea Hypertension Shortness of breath on exertion Leg cramps History of pacemaker History of rheumatic fever History of atrial fibrillation Wears glasses Excessive bleeding Arthritis Difficulty swallowing Non-smoker CPAP (continuous positive airway pressure) dependence History of echocardiogram History of stress test Cardiology follow-up encounter Non-sustained ventricular tachycardia Left bundle branch block (LBBB) Raynaud disease Essential (primary) hypertension Over weight LORI (obstructive sleep apnea) 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 Sinus bradycardia Mobitz type II atrioventricular block Cardiomyopathy in disease classified elsewhere Home Medications ?Medication ?Instructions ?Recorded ?Last Taken ?Type alprazolam 0.5 mg tablet 0.5 mg PO QHS anxiety 12/07/15 05/22/25 History acetaminophen 500 mg tablet 1,000 mg PO DAILY PAIN 12/25/22 05/22/25 History (Tylenol Extra Strength) ipratropium bromide 21 mcg (0.03 2 spray intranasal DAILY CONGESTION 09/23/23 05/23/25 05:00 History %) nasal spray metoprolol succinate 50 mg 50 mg PO BID HEART RATE #60 tabs 01/18/25 05/23/25 05:00 Rx tablet,extended release 24 hr apixaban 5 mg tablet (Eliquis) 5 mg PO BID BLOOD THINNER #60 tabs 03/27/25 05/20/25 Rx cyclobenzaprine 10 mg tablet 10 mg PO TID PRN muscle spasm #30 04/26/25 05/22/25 Rx tabs losartan 25 mg tablet 25 mg PO QHS HTN 05/10/25 05/22/25 History losartan 50 mg tablet 50 mg PO BID HTN 05/10/25 05/23/25 05:00 History meloxicam 15 mg tablet 15 mg PO .QOD INFLAMATION 05/10/25 05/16/25 History tramadol 50 mg tablet 50 mg PO TID PRN pain 05/10/25 Unknown History rosuvastatin 20 mg tablet 20 mg PO QODAY HLD 05/16/25 05/21/25 History simethicone 250 mg capsule (Gas-X) 250 mg PO DAILY PRN abdominal 05/16/25 Unknown History distention Allergy/AdvReac Type Severity Reaction Status Date / Time diltiazem AdvReac Intermediate Facial Verified 05/23/25 06:04 flushing and fatigue prednisone AdvReac Mild Other Verified 05/23/25 06:04 carvedilol (From Coreg) AdvReac face Verified 05/23/25 06:04 tingling Family History Mother CAD (coronary artery disease) Father CAD (coronary artery disease) Brother Polycystic kidney disease Surgical History History of appendectomy History of colonoscopy Biventricular cardiac pacemaker in situ (07/13/15) History of herniorrhaphy History of carpal tunnel surgery of right wrist History of esophagogastroduodenoscopy (EGD) Social History Smoking Status: Never smoker alcohol intake: never substance use type: does not use caffeine: Yes Type: carbonated beverages and tea additional social history: Denies daily use of aspirin or ibuprofen. ROS Constitutional Constitutional: Reports fatigue; Denies chills, fever(s) or weakness Cardiovascular Cardiovascular: Denies chest pain Respiratory/Chest Respiratory/Chest: Denies shortness of breath at rest Gastrointestinal Gastrointestinal: Denies abdominal pain Musculoskeletal Musculoskeletal: Reports back pain Physical Exam Const alert, oriented x3 and no apparent distress Constitutional Narrative: Pleasant elderly male, overweight, mildly fatigued appearing but otherwise sitting back fairly comfortably in bedside chair, conversing normally, in no acute distress. General Appearance: cooperative and comfortable HEENT normocephalic, head/scalp atraumatic, hearing grossly normal bilaterally, nasal mucous membranes and turbinates normal and moist oral mucous membranes Eyes PERRL, EOMs intact bilaterally and conjunctivae normal Neck full ROM Chest inspection of chest normal Resp normal respiratory effort, normal air movement, no use of accessory muscles and clear to auscultation bilaterally Cardio regular rate, regular rhythm, no murmurs and peripheral pulses 2+ throughout GI normal to inspection, nondistended, normoactive bowel sounds, soft to palpation, non-tender and non-distended Back/Spine Back/Spine Narrative: Mild tenderness to palpation in low back at surgical incision site. Extremity normal to inspection and no pedal edema Skin no rashes or lesions noted Neuro moves all extremities and no focal motor deficits Psych mental status grossly normal Lab / Micro Data Labs: Laboratory Results - last 24 hr 05/23/25 05:59: POC Glucose 86 Charges/Coding Visit Charges Inpatient E&M: 93812 Subs Hosp L2
[2025-05-23] MEDS: 0.9% Saline Lock 10 ML Syringe IV (16:25)
[2025-05-23] MEDS: Cefazolin 2 GM in 0.9% Normal Saline (100mL Bag) 100 ML IV (18:11)
--- NOTE | 2025-05-23 22:30 | NURSING ---
Pt walked in the hallway only [address] walker
[2025-05-23] MEDS: Metoprolol(XL)Succ 50 MG Tablet PO (22:38)
[2025-05-23] MEDS: Senna/Docusate Sodium 1 Tablet 2 TABLET PO (22:39)
[2025-05-24 02:00] VITALS: BP 112/64; PULSE 73; RESP 16; TEMP 36.6; O2SAT 98
[2025-05-24] MEDS: Cefazolin 2 GM in 0.9% Normal Saline (100mL Bag) 100 ML IV (02:31)
[2025-05-24] MEDS: 0.9% Saline Lock 10 ML Syringe IV (02:45)
--- NOTE | 2025-05-24 04:15 | RAD_ITS ---
PROCEDURE: LUMBAR SPINE 2 OR 3 VIEWS 05/24/2025 REASON FOR EXAM: STATUS POST LUMBAR FUSION TECHNIQUE: Procedure Code: RADSPLL Modality: DX Procedure: LUMBAR SPINE 2 OR 3 VIEWS COMPARISON: April 12, 2025 FINDINGS: Vertebrae: Large marginal osteophytes are shown throughout the lumbar spine. Once again there is mild anterior wedging of T12 and L1 vertebral bodies with proximally 25% height loss. Posterior fusion of L4 and L5 has been performed with a disc spacer in place and a single screw anteriorly on the left. Discs: Nuht-[id number]-[id number] loss of disc height throughout the lumbar spine. Alignment: Mild straightening of the lordosis. No significant spondylolisthesis. RAD/Lumbar Spine 2 or 3 Views IMPRESSION: Uncomplicated posterior fusion L4 and L5. Advanced degenerative changes simila r to prior CT. Reading Location: [id number]
[2025-05-24 06:00] VITALS: BP 112/75; PULSE 75; RESP 16; TEMP 36.9; O2SAT 99
[2025-05-24 07:06] LABS: Hematocrit 32.6 % (40-54); Hemoglobin 10.9 g/dL (13.0-16.5); Immature Granulocytes Count 0.050 X10^3/uL (0.0-0.0); Mean Corp Hgb Conc 33.4 g/dL (32-36); Mean Corpuscular Volume 95.3 fL (80-94); Mean Platelet Vol. 10.8 fl (6.2-12.0); NRBC Flagged by Analyzer 0 % (0-5); Platelet Count 165 K/mm3 (150-450); RBC Distribution Width CV 13.9 % (11.6-14.6); RBC Distribution Width SD 48.5 fl (35.1-43.9); Red Blood Count 3.42 M/mm3 (4.6-6.2); White Blood Count 12.3 K/mm3 (4.4-11.0)
[2025-05-24 09:01] VITALS: BP 106/43; PULSE 74; RESP 18; TEMP 36.8; O2SAT 100
[2025-05-24] MEDS: Senna/Docusate Sodium 1 Tablet 2 TABLET PO (09:12)
--- NOTE | 2025-05-24 09:18 | PN.HOSP_ITS ---
Subjective Subjective He has some postoperative pain, he is passing flatus but no bowel movements yet Objective Data Objective Data Vital Signs: Vital Signs Temp Pulse Resp BP Pulse Ox O2 Del Method O2 Flow Rate 98.3 F 74 18 106/43 L 100 Room Air 2 05/24/25 09:01 05/24/25 09:01 05/24/25 09:01 05/24/25 09:01 05/24/25 09:01 05/24/25 09:01 05/23/25 16:32 Oxygen Flow Rate (L/min) 2 Oxygen Delivery Method Room Air Weight: 195 lb 6.4 oz Body Mass Index (BMI) 29.7 Intake & Output: Intake and Output for Last 24 Hours 05/23/25 05/24/25 05/25/25 03:59 03:59 03:59 Intake Total 2021 / 2021 323.75 / 323.75 Output Total 750 / 750 3 / 3 Balance 1272 / 1272 320.75 / 320.75 Lab / Micro Data 05/24/25 06:55 05/24/25 09:02 Labs: Laboratory Results - last 24 hr 05/24/25 06:55: WBC 12.3 H, RBC 3.42 L, Hgb 10.9 L, Hct 32.6 L, MCV 95.3 H, MCH 31.9, MCHC 33.4, RDW Std Deviation 48.5 H, RDW Coeff of Pia 13.9, Plt Count 165, MPV 10.8, Immature Gran % (Auto) 0.400, Neut % (Auto) 81.9 H, Lymph % (Auto) 6.3 L, [place] % (Auto) 11.2 H, Eos % (Auto) 0.0, Baso % (Auto) 0.2, Absolute Neuts (auto) 10.1 H, Absolute Lymphs (auto) 0.78 L, Nucleated RBC % 0, Sodium Cancelled, Potassium Cancelled, Chloride Cancelled, Carbon Dioxide Cancelled, Anion Gap Cancelled, BUN Cancelled, Creatinine Cancelled, Estim Creat Clear Calc Cancelled, Est GFR (MDRD) Non-Af Cancelled, BUN/Creatinine Ratio Cancelled, Glucose Cancelled, Calcium Cancelled Radiography Diagnostic Testing: Radiology Impression Lumbar Spine X-Ray 05/24/25 04:15 IMPRESSION: Uncomplicated posterior fusion L4 and L5. Advanced degenerative changes similar to prior CT. Reading Location: [facility] Physical Exam Narrative General: Alert, Oriented x3, Cooperative, No apparent distress HEENT: Atraumatic, PERRLA, EOMI, Normocephalic Oral: Moist Mucosa Neck: Supple, No JVD Lungs: Diminished, Normal air movement, No rhonchi, No wheeze, No rales Cardiovascular: Regular rate, Regular Rhythm, Normal S1, Normal S2, No murmurs Abdomen: Soft, Non Tender, Non-Distended, No Hepato-splenomegaly Extremities: No edema, Capillary Refill Less than 3 Seconds Skin: No rashes, No breakdown Musculoskeletal: No Tenderness to Palpation of Joints or Extremities Neurological: No focal neurological deficits, moves all extremities, sensation intact Psych/Mental Status: Normal Affect, Appropriate Assessment & Plan Assessment/Plan (1) Lumbar stenosis with neurogenic claudication: PLAN: Plan 1. L4-5 disc generation with recurrent disc herniation, stenosis with neurogenic claudication and left foot drop status post L4-5 lumbar fusion on 05/23/2025 ? Pain management per primary ? PT/OT ? BMP is pending however I do anticipate it will be normal in which case he would be medically stable for discharge ? He is having flatus but no bowel movements yet 2. Paroxysmal A-fib/essential HTN/HLD ? Can resume his home blood pressure medications ? He will be up to surgery to determine reinstitution of Eliquis ? Monitor make adjustments as necessary ?Continue statin 3. Anxiety/insomnia ? Stable ? Okay to continue home low-dose Xanax at night. 4. LORI ? Stable ? Continue PAP therapy at night. DVT: Per primary Charges/Coding Visit Charges Inpatient E&M: 37764 Subs Hosp L2
[2025-05-24 09:49] LABS: Anion Gap 11 (5-15); BUN 21 mg/dL (4-19); BUN/Creat Ratio 20.5 RATIO (10-20); Calcium,Total 8.7 mg/dL (7.6-11.0); Carbon Dioxide 22.9 mmol/L (21.0-32.0); Chloride 103 mmol/L (98-108); Estimated Creatinine Clearance 62.31 ml/min (50-250); Glucose 158 mg/dL (70-99); Potassium 4.6 mmol/L (3.3-5.1)
[2025-05-24] MEDS: Ensure Surgery 237 ML LIQUID PO (11:40)
[2025-05-24 14:09] VITALS: BP 100/55; PULSE 71; RESP 18; TEMP 36.7; O2SAT 96
--- NOTE | 2025-05-24 14:38 | CASEMGMT ---
ALESSANDRO MONTAÑO Assessment: Face to Face with pt for initial transition planning/care coordination assessment. ALESSANDRO MONTAÑO introduced self and role at [facility], pt voices understanding and consents to assessment. Pt is A&O x4 and answers all questions appropriately at this time. Pt just finished with OT and is back in chair with at bedside. Pt agreeable to assessment with present. Care providers, pharmacy, and demographics verified/updated. Admitting Dx: 360 lumbar fusion Strata Score: 1 PCP:Estefania Specialists:Darryl ortho; Dariana cardio Preferred Pharmacy: [facility] Insurance: [employer] Prescription Benefit: yes LNOK: Dimple Horowitz, Living Arrangements: Pt lives with in a single story home with 1 step to enter. Pt reports prior to surgery he was indep in ADLs and performed IADLs such as meals, laundry and getting groceries. Pt denies concerns at home. Transportation: Pt drives self and denies concerns with transportation. Pt will transport pt until he is able to drive again. DME:2 ww, cane, walk in shower, [facility], shower chair HHC/SNF: Denies hx of Pt states no concerns with going home at time of dc. Pt states no further concerns/needs. CM to follow. Advised pt to ask CM if any further questions/concerns/needs arise, voices understanding. Pt Goal: Home Plan: Home Anitha FRANCOIS CM
== END 2025-05-24 16:41 | disposition home or self-care (01) | DRG 402 ==
PROVIDERS: Student in an Organized Health Care Education/Training Program; Admitting Provider Orthopaedic Surgery Orthopaedic Surgery of the Spine; PCP Family Medicine; Referring Provider Orthopaedic Surgery Orthopaedic Surgery of the Spine; Visit Provider Orthopaedic Surgery Orthopaedic Surgery of the Spine
PROC: 0SG00A0 Fusion of Lumbar Vertebral Joint with Interbody Fusion Device, Anterior Approach, Anterior Column, Open Approach (ICD-10-PCS; principal; 2025-05-23 07:00)
DX: M48.062 Spinal stenosis, lumbar region with neurogenic claudication (principal); I48.92 Unspecified atrial flutter; I44.1 Atrioventricular block, second degree; I10 Essential (primary) hypertension; I73.9 Peripheral vascular disease, unspecified; I48.0 Paroxysmal atrial fibrillation; G47.33 Obstructive sleep apnea (adult) (pediatric); M21.372 Foot drop, left foot; E78.5 Hyperlipidemia, unspecified; F41.9 Anxiety disorder, unspecified; E66.3 Overweight; M51.362 Other intervertebral disc degeneration, lumbar region with discogenic back pain and lower extremity pain; G47.00 Insomnia, unspecified; G89.29 Other chronic pain; Z79.01 Long term (current) use of anticoagulants; Z95.0 Presence of cardiac pacemaker; Z79.899 Other long term (current) drug therapy; Z68.29 Body mass index [BMI] 29.0-29.9, adult
CPT/HCPCS: 36415; 72100; 76000; 80048; 82962; 85025; 94668; 97162; 97166; 97530; 97535; A4648; C1713; A4216; J2405; J3475

== ENCOUNTER → 2025-07-04 | Outpatient (CLI) | payer MEDICARE, OTHER, SELFPAY ==
--- NOTE | 2025-07-04 11:48 | RAD_ITS ---
PROCEDURE: LUMBAR SPINE 2 OR 3 VIEWS 07/04/2025 REASON FOR EXAM: POST OP TECHNIQUE: Procedure Code: RADSPLL Modality: DX Procedure: LUMBAR SPINE 2 OR 3 VIEWS COMPARISON: 06/07/2025. FINDINGS: No evidence acute fracture or dislocation. L4-5 posterior fusion and discectomy. Up to moderate degenerative changes of the of the non fused levels. RAD/Lumbar Spine 2 or 3 Views IMPRESSION: Intact L4-5 posterior fusion. Reading Location: [id number]
--- OUTSIDE RECORDS SUMMARY | 2025-07-04 19:04 | XMS RPT_ITS | CCD ---
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 Name Role Phone ALESSANDRO Gunn, Estefanía Pitt Unavailable Unavailable ALESSANDRO Gunn Sue M Unavailable Unavailable JOO Mina, Stacy Pitt Unavailable JOO Mina, Stacy Pitt Unavailable [phone] ALESSANDRO Gunn, Estefanía Pitt Unavailable Unavailable ALESSANDRO Gunn Sue M Unavailable Unavailable DeFinis, Harumi Y Unavailable Unavailable NO, DOCTOR ON Consulting Unavailable LILLIAM, DR DARLENE Koroma Admitting Unavaila ble LILLIAM, DR DALRENE Koroma Primary Care Unavaila ble LILLIAM, DR DARLENE Koroma Attending Unavaila ble LILLIAM, DR DARLENE Koroma Admitting Unavaila ble LILLIAM, DR DARLENE Koroma Primary Care Unavaila ble LILLIAM, DR DARLENE Koroma Attending Unavaila ble NO, DOCTOR ON Consulting Unavailable Dr. Joaquin Melo Referring Provider Dr. Donald Burt Attending Provider Dr. Paul Mac Primary Care Provider Dr. Paul Mac Referring Provider Sharon Gunn Attending Provider Unavailable Dr. Richie Tan Attending Provider [phone] Joaquin Grady MD Primary Care Provider Dr. Paul Mac Primary Care Provider Dr. Paul Mac Referring Provider Dr. Richie Tan Attending Provider [phone] Paul Mac Primary Care Provider Dr. Paul Mac Referring Provider Dr. Albert Velarde Attending Provider Dr. Donald Burt Attending Provider Sharon Gunn Attending Provider Unavailable Dr. Paul Mac Primary Care Provider Dr. Paul Mac Referring Provider Dr. Albert Velarde Attending Provider Dr. Donald Burt Attending Provider Sharon Gunn Attending Provider Unavailable Roof SECURITY SYSTEMS TECHNICIAN, SECURITY SYSTEMS TECHNICIAN-C Joaquin Landon Attending Provider Dr. Paul Mac Primary Care Provider Estefania, Dr. Miller Referring Provider Sharon Gunn Attending Provider Unavailable Roof SECURITY SYSTEMS TECHNICIAN, SECURITY SYSTEMS TECHNICIAN-C Joaquin Landon Attending Provider Dr. Paul Mac Primary Care Provider Dr. Paul Mac Referring Provider Sharon Gunn Attending Provider Unavailable Roof SECURITY SYSTEMS TECHNICIAN, SECURITY SYSTEMS TECHNICIAN-C Joaquin Landon Attending Provider Dr. Paul Mac Primary Care Provider Dr. Donald Burt Attending Provider Dr. Donald Burt Referring Provider Dr. Donald Burt Other Provider Dr. Paul Mac Primary Care Provider [phone] Dr. Donald Burt Attending Provider Dr. Donald Burt Referring Provider Dr. Paul Mac Referring Provider Roof SECURITY SYSTEMS TECHNICIAN, SECURITY SYSTEMS TECHNICIAN-C Joaquin Landon Attending Provider Dr. Richie Tan Attending Provider Dr. Richie Tan Referring Provider [phone] Dr. Jose Aceves Attending Provider Dr. Richie Tan Other Provider Dr. Paul Mac MD Primary Care Provider Javed RO, Dr. Bennett Attending Provider Javed RO, Dr. Bennett Referring Provider Estefania RO, Dr. Miller Referring Provider Lakeshia SECURITY SYSTEMS TECHNICIAN-CDebbie Attending Provider Estefania RO, Dr. Miller Attending [...] Christi RO, Dr. Rausch Attending Provider [phone] Christi RO, Dr. Rausch Referring Provider [phone] Sharon Gunn Attending Provider Unavailable Joaquin Mendez Attending Provider Estefania RO, Dr. Miller Attending Provider Darryl RO, Dr. Wills Attending Provider Estefania RO, Dr. Miller Primary Care Provider Javed RO, Dr. Bennett Attending Provider Javed RO, Dr. Bennett Referring Provider Estefania RO, Dr. Miller Referring Provider Darryl RO, Dr. Wills Admit Provider Dr. Johann Andrews MD Referring Provider Darryl RO, Dr. Wills Other Provider Estefania RO, Dr. Miller Other Provider Boom RO, Dr. See Other Provider Unavailab howard Alcantar MD, Dr. Hyun Chan Other Provider Hathaway DO, Dr. Garcia Other Provider Unavail able John RO, Dr. Garcia Other Provider Unavailable Matheus HALL, Dr. Ingram Other Provider Hilda RO, Dr. Alexander Other Provider Vinh RO, Dr. Umaña Other Provider Grady HALL, Dr. Hanson Other Provider Carmelina HALL, Dr. Obrien Other Provider Loc RO, Dr. Judith Escobar Other Provider Yamilex RO, Dr. Lino Gross Other Provider Eber RO, Dr. Nassar Other Provider Jay RO, Dr. Carmona Other Provider Rene RO, Dr. Collazo Other Provider Long SECURITY SYSTEMS TECHNICIAN-C, Libertad Other Provider Anju MALDONADO, Krish Other Provider Dr. Cuate Hawthorne DO Attending Provider Dr. Cuate Hawthorne DO Other Provider Yamilex RO, Dr. Lino Gross Attending Provider Dr. Paul Mac MD Primary Care Physician Javed RO, Dr. Bennett Attending Physician Beth Kim Attending Physician Dr. Shalom Barraza MD Attending Physician James SECURITY SYSTEMS TECHNICIAN-C, Joaquin Landon Attending Physician Dr. Paul Mac MD Attending Physician Darryl RO, Dr. Wills Attending Physician Darryl RO, Dr. Wills Admitting Physician Darryl RO, Dr. Wills Nurse Practitioner Estefania RO, Dr. Miller Nurse Practitioner Boom RO, Dr. See Nurse Practitioner Sarbjit Alcantar MD, Dr. Hyun Chan Nurse Practitioner Hathaway DO, Dr. Garcia Nurse Practitioner Chioma Lopez MD, Dr. Garcia Nurse Practitioner Unavaila gretchen Jarvis DO, Dr. Ingram Nurse Practitioner Hilda RO, Dr. Alexander Nurse Practitioner Vinh RO, Dr. Umaña Nurse Practitioner Grady HALL, Dr. Hanson Nurse Practitioner Carmelina HALL, Dr. Obrien Nurse Practitioner Loc RO, Dr. Judith Escobar Nurse Practitioner Yamilex RO, Dr. Lino Gross Nurse Practitioner Eber RO, Dr. Nassar Nurse Practitioner Jay RO, Dr. Carmona Nurse Practitioner Rene RO, Dr. Collazo Nurse Practitioner [phone] Long SECURITY SYSTEMS TECHNICIAN-C, Libertad Nurse Practitioner Krish Burkett Nurse Practitioner Dr. Cuate Hawthorne DO Attending Physician Dr. Cuate Hawthorne DO Nurse Practitioner Yamilex RO, Dr. Lino Gross Attending Physician Sharon Gunn Attending Physician Unavailable Jameel DC-C, Sharon Attending Physician Beth Kim Referring Provider Paul Mac Referring Unavailable Beth Gunderson Attending Unavailable Paul Mac Primary Care Unavailable Paul Mac Attending Unavailable Paul Mac Referring Unavailable Mac, Primary Care Unavailable Mac, Primary Care Unavailable Darryl, Johann Attending Unavailable Jalyn, Beth Attending Unavailable Jalyn, Beth Referring Unavailable Mac, Primary Care Unavailable Mac, Primary Care Unavailable Javed, Donald Attending Unavailable Mac, Referring Unavailable Sharon Jorgensen Attending Unavailable Mac, Primary Care Unavailable Mac, Primary Care Unavailable Mac, Referring Unavailable Andrews, Johann Attending Unavailable Javed, Donald Attending Unavailable Mac, Primary Care Unavailable Mac, Primary Care Unavailable Mac, Referring Unavailable Roof Joaquin DC Attending Unavailable Mac, Primary Care Unavailable Andrews, Johann Referring Unavailable Andrews, Johann Admitting Unavailable Andrews, Johann Attending Unavailable Mayi Nur Consulting Unavailable Hyun Alcantar Consulting Unavailable Jose Hathaway Consulting Unavailable Jose Lopez Consulting Unavailable Juan Jose Jarvis Consulting Unavailable Benjamin Stevens Consulting Unavailable Leeroy Justice Consulting Unavailable Margie Rasmussen Consulting Unavailable Micah Cosme Consulting Unavailable Judith Monterroso Consulting Unavailable Lino Kaminski Consulting Unavailable Cesario Velázquez Consulting Unavailable Estefania, Consulting Unavailable Kristine Thompson Consulting Unavailable Zay López Consulting Unavailable Libertad Alves Consulting Unavailable Krish Burkett Consulting Unavailable Mac, Primary Care Unavailable Javed, Lehi Referring Unavailable Javed, Donald Attending Unavailable Driss Westbrook Attending Unavailable Mac, Referring Unavailable Mac, Primary Care Unavailable Mac, Primary Care Unavailable Javed, Donald Attending Unavailable Mac, Primary Care Unavailable Javed, Lehi Referring Unavailable Javed, Donald Attending Unavailable Mac, Referring Unavailable Debbie Asher Attending Unavailable Mac, Primary Care Unavailable Javed, Donald Attending Unavailable Mac, Primary Care Unavailable Javed, Donald Referring Unavailable Mac, Primary Care Unavailable Javed, Donald Attending Unavailable Mac, Referring Unavailable Sharon Jorgensen Attending Unavailable Mac, Primary Care Unavailable Mac, Primary Care Unavailable Shalom Barraza Attending Unavailable Shalom Barraza Referring Unavailable Mac, Referring Unavailable Mac, Primary Care Unavailable Jalyn, Beth Attending Unavailable Mac, Referring Unavailable Mac, Primary Care Unavailable Jalyn, Beth Attending Unavailable Mac, Primary Care Unavailable Javed, Donald Referring Unavailable Javed, Donald Attending Unavailable Lino Kaminski Attending Unavailable Andrews, Johann Referring Unavailable Andrews, Johann Admitting Unavailable Mayi Nur Consulting Unavailable Mac, Primary Care Unavailable Hyun Alcantar Consulting Unavailable Jose Hathaway Consulting Unavailable Jose Lopez Consulting Unavailable Juan Jose Jarvis Consulting Unavailable Benjamin Stevens Consulting Unavailable Leeroy Justice Consulting Unavailable Margie Rasmussen Consulting Unavailable Micah Cosme Consulting Unavailable Judith Monterroso Consulting Unavailable Lino Kaminski Consulting Unavailable Cesario Velázquez Consulting Unavailable Paul Mac Consulting Unavailable Kristine Thompson Consulting Unavailable Zay López Consulting Unavailable Libertad Alves Consulting Unavailable Krish Burkett Consulting Unavailable Andrews, Johann Consulting Unavailable Cuate Hawthorne Consulting Unavailable Cuate Hawthorne Attending Unavailable Mac, Primary Care Unavailable Andrews, Johann Attending Unavailable Andrews, Johann Referring Unavailable Andrews, Johann Admitting Unavailable Andrews, Johann Consulting Unavailable Mac, Referring Unavailable Mac, Attending Unavailable Mac, Primary Care Unavailable Javed, Lehi Attending Unavailable Mac, Primary Care Unavailable Javed, Lehi Referring Unavailable Javed, Donald Attending Unavailable Mac, Primary Care Unavailable Javed, Lehi Referring Unavailable Javed, Donald Attending Unavailable Mac, Primary Care Unavailable Mac, Primary Care Unavailable Javed, Donald Attending Unavailable Javed, Lehi Referring Unavailable Javed, Donald Attending Unavailable Mac, Primary Care Unavailable Mac, Referring Unavailable Beth Gunderson Attending Unavailable Mac, Primary Care Unavailable Mac, Referring Unavailable Roof Joaquin DC Attending Unavailable Mac, Primary Care Unavailable Javed, Donald Attending Unavailable Mac, Primary Care Unavailable Javed, Donald Referring Unavailable Mac, Referring Unavailable Mac, Primary Care Unavailable Mac, Attending Unavailable Allergies Allergy Classification Reported Allergen(s) Allergy Type Date of Onset Reaction(s) Facility (20 sources) carvedilol Drug Allergy 1 face tingling [facility] (20 sources) dilTIAZem Drug Allergy 3 Facial flushing and fatigue [facility] (10 sources) predniSONE Drug Allergy 5 Other [facility] Comment on above: HOT FLUSHED FACE (1 source) carvedilol Drug Allergy 5 [facility] (1 source) dilTIAZem Drug Allergy 5 [facility] (1 source) predniSONE Drug Allergy 5 [facility] Medications Current Medications Medication Drug Class(es) Dates Sig (Normalized) Sig (Original) acetaminophen 500 mg oral tablet (20 sources) Start: 05-24-2025 take 2 tablets by mouth every eight hours Acetaminophen 500 mg Tablet Active 1000 mg PO EVERY 8 HOURS 30 May 24, 2025 12:00am Complies with drug therapy Start: 07-03-2022 End: 05-24-2025 take 2 tablets by mouth once daily Acetaminophen (Tylenol Extra Strength) 500 mg tablet Discontinued 1000 mg PO DAILY December 25, 2022 3:39pm May 24, 2025 9:40am PAIN cyclobenzaprine hydrochloride 5 mg oral tablet (20 sources) Muscle Relaxant Start: 06-13-2025 take 1 tablet by mouth twice daily as needed Cyclobenzaprine 5 mg tablet Active 5 mg PO TWICE A DAY as needed June 13, 2025 12:00am Complies with drug therapy Start: 06-13-2025 take 1 tablet by bianca th twice daily as needed Cyclobenzaprine 5 mg tablet Active 5 mg PO TWICE A DAY as needed June 13, 2025 12:00am Complies with drug therapy Start: 06-13-2025 take 1 tablet by bianca th twice daily as needed Cyclobenzaprine 5 mg tablet Active 5 mg PO TWICE A DAY as needed June 13, 2025 12:00am Complies with drug therapy Start: 04-26-2025 End: 05-24-2025 take 1 tablet by mouth three times daily as needed for muscle spasms Cyclobenzaprine 10 mg tablet Discontinued 10 mg PO THREE TIMES A DAY as needed for muscle spasm 30 0 April 26, 2025 12:00am May 24, 2025 9:40am Start: 03-16-2025 End: 04-26-2025 take 1 tablet [...] daily at every night prn CYCLOBENZAPRINE HCL [id number] Estefanía Gunn RN ipratropium bromide 0.021 mg/actuat metered dose nasal spray (12 sources) Anticholinergic Start: 09-23-2023 Ipratropium Br omide 21 mcg (0.03 %) spray,non-aerosol Active 2 NMA INTRANASAL DAILY September 23, 2023 1:00am CONGESTION Complies with drug therapy Start: 09-23-2023 Ipratropium Br omide Active 2 SPRAY INTRANASAL DAILY September 23, 2023 1:00am Ipratropium [place] 21 mcg (0.03 %) spray,non-aerosol (10 sources) Start: 09-23-2023 Ipratropium [place] 21 mcg (0.03 %) spray,non-aerosol Active 2 NMA INTRANASAL DAILY September 23, 2023 1:00am 24 hr metoprolol succinate 50 mg extended release oral tablet (20 sources) beta-Adrenerg ic Elizabeth Start: 01-18-2025 take 1 tablet by mouth twice daily Metoprolol Succinate 50 mg tablet extended release 24 hr Active 50 mg PO TWICE A DAY 60 January 18, 2025 11:37am HEART RATE Complies with drug therapy Start: 01-14-2024 End: 01-18-2025 take 1 tablet by mouth once daily Metoprolol Succinate 50 mg tablet extended release 24 hr Discontinued 50 mg PO DAILY 30 January 18, 2024 8:37am January 18, 2025 11:39am traMADol hydrochloride 50 mg oral tablet (20 sources) Opioid Agonist Start: 06-06-2025 End: 06-06-2025 take 1 tablet by mouth three times daily as needed for pain Tramadol 50 mg tablet Active 50 mg PO THREE TIMES A DAY as needed for pain 21 0 June 06, 2025 2:49pm Complies with drug therapy Start: 03-16-2025 End: 05-24-2025 take 1 tablet by mouth three times daily as needed for pain Tramadol 50 mg tablet Discontinued 50 mg PO THREE TIMES A DAY as needed for pain May 10, 2025 3:35pm May 24, 2025 9:41am Completed/Discontinued Medications Medication Drug Class(es) Dates Sig (Normalized) Sig (Original) acetaminophen 325 mg / oxyCODONE hydrochloride 5 mg oral tablet (20 sources) Opioid Agonist Start: 12-13-2015 End: 10-01-2017 Oxycodone-Acetamino phen 1 TABLET tablet Discontinued 1 - 2 {tbl} PO EVERY 4 HOURS NEEDED as needed for Pain 30 0 December 13, 2015 12:00am October 01, 2017 11:00am Start: 12-13-2015 End: 10-01-2017 take 1 tablet by mouth every four hours as needed Oxycodone-Acetaminophen Discontinued 1 - 2 TABLET PO EVERY 4 HOURS NEEDED December 13, 2015 12:00am October 01, 2017 11:00am ALPRAZolam 0.5 mg oral tablet (20 sources) Benzodiazepine Start: 07-25-2015 ALPRAZolam (XA NAX) 0.25 mg tablet Take 0.25 mg by mouth as needed. 0 07/25/2015 Active Start: 07-20-2015 End: 06-07-2025 take 1 tablet by mouth at bedtime Alprazolam 0.5 MG tablet Discontinued 0.5 mg PO AT BEDTIME December 07, 2015 12:00am June 07, 2025 1:28pm anxiety Comment on above: Take 0.25 mg by mout h as needed. amLODIPine 5 mg oral tablet (20 sources) Dihydropyridine Calcium Channel Elizabeth Start: 09-29-19 End: 10-14-19 take 1 tablet by mouth once daily Amlodipine 5 mg tablet Discontinued 5 mg PO DAILY 90 5 September 29, 2019 1:00am October 14, 2019 9:47am Start: 07-20-2015 End: 07-23-2015 take 1 tablet by mouth once daily NORVASC 5 MG TABS One tablet by mouth daily (check dose at appt) AMLODIPINE BESYLATE [id number] Lauren Zarate RN apixaban 5 mg oral tablet (20 sources) Factor Xa Inhibitor Start: 01-05-2023 End: 03-27-2025 take 1 tablet by mouth twice daily Apixaban (Eliquis) 5 mg tablet Discontinued 5 mg PO TWICE A DAY August 01, 2024 12:56pm March 27, 2025 [...] TABS One tablet by mouth daily ASPIRIN [id number] Lauren Zarate RN Start: 07-20-2015 End: 07-23-2015 take 1 tablet by mouth once daily ASPIRIN 81 MG TABS One tablet by mouth daily ASPIRIN [id number] Lauren Zarate RN Start: 07-31-2011 take 1 [...] Start: 11-05-2015 take 1 tablet by bianca th once daily carvedilol (COREG) 6.25 mg tablet Take 6.25 mg by mouth once daily. 0 11/05/2015 Active Start: 07-23-2015 End: 09-29-2019 take 1 tablet by mouth twice daily Carvedilol 6.25 mg tablet Discontinued 6.25 mg PO TWICE A DAY 180 September 12, 2019 10:20am September 29, 2019 12:23pm Comment on above: Take 6.25 mg by mout h once daily. cephalexin 500 mg oral capsule (4 sources) Cephalosporin Antibacterial Start: 025 End: 025 take 1 capsule by mouth twice daily Cephalexin 500 mg capsule Discontinued 500 mg PO TWICE A DAY 14 0 June 06, 2025 12:00am June 13, 2025 2:33pm take 1 capsule twice a day cholecalciferol 0.025 mg oral tablet (20 sources) Vitamin D Start: 016 End: 022 take 1 tablet by mouth once daily Cholecalciferol (Vitamin D3) 1,000 UNIT tablet Discontinued 1000 U PO DAILY December 07, 2015 12:00am December 25, 2021 1:52pm Start: 07-31-2011 take 1 capsule by [facility] once daily Cholecalciferol, Vitamin D3, 10,000 unit ORAL Cap Take by mouth. Take one(1) capsule two(2) times daily. 0 07/31/2011 Active Comment on above: Take by mouth. Take one(1) capsule two(2) times daily. Take 1 tablet by [facility] once daily. dexamethasone 6 mg oral tablet (20 sources) Corticosteroid Start: 04-15-20 End: 07-20-20 take 1 tablet by mouth once daily Dexamethasone 6 mg tablet Discontinued 6 mg PO DAILY 5 0 April 15, 2024 12:00am July 20, 2024 11:28am 24 hr dilTIAZem hydrochloride 120 mg extended release oral capsule (20 sources) Calcium Channel Elizabeth Start: 12-26-19 End: 01-10-20 take 1 capsule by mouth once daily Diltiazem Hcl 120 mg capsule,extended release 24 hr Discontinued 120 mg PO DAILY 90 3 December 25, 2022 12:00am January 09, 2023 9:48am docusate sodium 50 mg / sennosides, detention 8.6 mg oral tablet (8 sources) Start: 05-24-20 End: 06-06-20 Sennosides-Docusate Sodium (Stimulant Laxative Plus) 8.6-50 mg Tablet Discontinued 2 {tbl} PO TWICE A DAY as needed for constipation 14 0 May 24, 2025 9:41am June 06, 2025 2:03pm dutasteride 0.5 mg oral capsule (20 sources) 5-alpha Reductase Inhibitor Start: 03-29-20 End: 07-03-20 take 1 capsule by mouth once daily Dutasteride 0.5 mg capsule Discontinued 0.5 mg PO DAILY March 29, 2021 12:00am July 03, 2022 11:16am furosemide 40 mg oral tablet (20 sources) Loop Diuretic Start: 10-13-19 End: 01-19-20 take 1 tablet by mouth once daily Furosemide 40 mg tablet Discontinued 40 mg PO .COMPLEX 20 October 13, 2024 10:10am January 18, 2025 11:00am 40 mg orally daily X 3 days; L GASSERI/B BIFIDUM/B LONGUM (PROBIOTIC COLON CARE ORAL) (3 sources) L GASSERI/B BIFIDUM/B LONGUM (PROBIOTIC COLON CARE ORAL) Take by mouth. 0 Active Comment on above: Take by mouth. lisinopril 5 mg oral tablet (20 sources) Angiotensin Converting Enzyme Inhibitor Start: 08-05-20 15 End: 09-22-19 18 take 2 tablets by mouth once daily Lisinopril 5 MG tablet Discontinued 10 mg PO DAILY August 05, 2015 1:00am September 22, 2017 1:53pm Start: 08-05-2015 End: 09-22-2017 take 10 mg by mouth once daily Lisinopril Discontinued 10 MG PO DAILY August 05, 2015 1:00am September 22, 2017 1:53pm Start: 07-23-2015 End: 02-20-2017 lisinopril (ZESTRIL, PRINIVI L) 10 mg tablet losartan potassium 50 mg oral tablet (20 sources) Angiotensin 2 Receptor Elizabeth Start: 05-10-2025 End: 06-07-2025 Losartan 50 mg tablet Discontinued 50 mg PO .COMPLEX June 07, 2025 1:22pm June 07, 2025 1:24pm HTN 50 mg orally twice daily: take 50 mg in the am, and take WITH a 25 mg tablet at bedtime to = 75mg po at bedtime; Start: 01-18-2025 End: 05-10-2025 Losartan 50 mg tablet Discon tinued 50 mg PO .COMPLEX January 18, 2025 11:02am May 10, 2025 3:35pm 25-50mg qam; Takes 25mg and 50 mg QHS to =75mg Start: 06-02-2024 End: 05-10-2025 Losartan 25 mg tablet Discon tinued 25 mg PO .COMPLEX 90 June 13, 2024 4:02pm July 20, 2024 [...] 75 mg PO TWICE A DAY 300 April 07, 2024 9:21am June 02, 2024 [...] tablet Discontinued 25 mg PO .COMPLEX 135 August 21, 2020 5:34pm September 27, 2020 [...] tablet (20 sources) Nonsteroidal Anti-inflammatory Drug Start: End: take 1 tablet by mouth every other day Meloxicam 15 mg tablet Discontinued 15 mg PO .QOD May 10, 2025 3:34pm May 24, 2025 9:40am INFLAMATION Start: 12-25-2021 End: 05-10-2025 take 1 tablet by mouth once daily Meloxicam 15 mg tablet Discontinued 15 mg PO DAILY December 25, 2021 12:00am May 10, 2025 3:35pm Start: 03-28-2021 End: 12-25-2021 take 1 tablet by mouth twice daily Meloxicam 7.5 mg tablet Discontinued 7.5 mg PO TWICE A DAY March 28, 2021 12:00am December 25, 2021 1:53pm methocarbamol 500 mg oral tablet (8 sources) Muscle Relaxant Start: 05-24-2025 End: 06-13-2025 Methocarbamol 500 mg Tablet Discontinued 750 mg PO THREE TIMES A DAY as needed for pain/spasms 60 0 May 24, 2025 9:41am June 13, 2025 2:33pm methylcellulose 500 mg oral tablet (3 sources) Methylcellulose, Laxative, (CITRUCEL) 500 mg Tab Take by mouth. 0 Active Comment on above: Take by mouth. Multivitamin,Tx-Iron-M inerals (9 sources) Start: 12-07-2015 End: 03-28-2021 take 1 tablet by mouth once daily Multivitamin,Tx-Iro n-Minerals Discontinued 1 TABLET PO DAILY December 07, 2015 2:02pm March 28, 2021 1:19pm Start: 12-07-2015 End: 03-28-2021 take 1 tablet by mouth once daily Multivitamin,Yh-Intw-Wkecygoi Discontinu ed 1 TABLET PO DAILY December 06, 2015 11:00pm March 28, 2021 12:19pm Start: 12-07-2015 End: 03-28-2021 take 1 tablet by mouth once daily Multivitamin,Df-Lmah-Rizgljnq Discontinu ed 1 TABLET PO DAILY December 07, 2015 12:00am March 28, 2021 1:19pm Multivitamin,Bg-Gaba-Svceenh s 1 TABLET tablet (20 sources) Start: 12-07-2015 End: 03-28-2021 take 1 tablet by mouth once daily Multivitamin,Zt-Cgnx-Rqgdcyyo 1 TABLET tablet Discontinued 1 {tbl} PO [...] 29, 2019 1:00am November 06, 2020 1:44pm oxyCODONE hydrochloride 5 mg oral tablet (8 sources) Opioid Agonist Start: 05-24-2025 End: 06-06-2025 take 2.5-5 mg by mouth every six hours as needed for pain Oxycodone 5 mg Tablet Discontinued 2.5 - 5 mg PO EVERY 6 HOURS as needed for pain 28 7 0 May 24, 2025 June 06, 2025 2:03pm Status post lumbar spinal fusion Arthrodesis status polyethylene glycol 3350 [id number] mg / potassium chloride 2970 mg / sodium bicarbonate 6740 mg / sodium chloride 5860 mg / sodium sulfate 03211 mg powder for oral solution (20 sources) Osmotic Laxative Start: 10-14-2023 End: 07-20-2024 [...] One capsule by mouth daily PROBIOTIC PRODUCT [id number] Lauren Zarate RN Start: 07-20-2015 End: 07-23-2015 take 1 capsule by mouth once daily PROBIOTIC CAPS One capsule by mouth daily PROBIOTIC PRODUCT [id number] Lauren Zarate RN PROBIOTIC PRODUCT (8 sources) Start: 07-20-2015 take 1 capsule by mouth once daily PROBIOTIC CAPS One capsule by mouth daily PROBIOTIC PRODUCT [id number] Lauren Zarate RN Start: 07-20-2015 End: 07-23-2015 take 1 capsule by mouth once daily PROBIOTIC CAPS One capsule by mouth daily PROBIOTIC PRODUCT [id number] Lauren Zarate RN raNITIdine 150 mg oral tablet (20 sources) Histamine-2 Receptor Antagonist Start: 07-07-2018 End: 09-29-2019 take 1 tablet by mouth once daily Ranitidine Hcl 150 MG tablet Discontinued 150 mg PO DAILY July 07, 2018 12:00am September 29, 2019 12:11pm Comment on above: Take 1 tablet by bianca th once daily. rosuvastatin calcium 20 mg oral [...] 2024 5:24pm January 18, 2025 11:04am Saw Crawford 80 mg ORAL capsule (3 sources) Start: 07-31-2011 take 2 capsules by mouth in the morning Saw Crawford 80 mg ORAL capsule Take by mouth. Takes 2 in the am and 2 in the pm. 0 07/31/2011 Active Comment on above: Take by mouth. Takes 2 in the am and 2 in the pm. simethicone 250 mg oral capsule (10 sources) Start: 05-16-2025 End: 06-07-2025 take 1 capsule by mouth once daily as needed Simethicone (Gas-X) 250 mg capsule Discontinued 250 mg PO DAILY as needed for abdominal distention May 16, 2025 12:00am June 07, 2025 1:37pm tamsulosin hydrochloride 0.4 mg oral capsule (20 [...] on above: Take 1 capsule by mo barton [facility] twice daily. therapeutic multivitamin ORAL tablet (3 sources) Start: 1 take 1 tablet by mouth once daily as needed therapeutic multivitamin ORAL tablet Take by mouth. Takes 1 per day as needed. 0 07/31/2011 Active Comment on above: Take by mouth. Takes 1 per day as needed. 24 hr verapamil hydrochloride 120 mg extended release oral capsule (20 sources) Calcium Channel Elizabeth Start: 4 End: 4 take 1 capsule by mouth every twenty-four [...] on above: Take 1 tablet by bianca once daily. CHOLECALCIFEROL (16 sources) Start: 07-20-2015 End: 07-23-2015 take 1 tablet by mouth once daily VITAMIN D 1000 UNIT TABS One tablet by mouth daily CHOLECALCIFEROL [id number] Lauren Zarate RN Start: 07-20-2015 take 1 tablet by bianca th once daily VITAMIN D 1000 UNIT TABS One tablet by mouth daily CHOLECALCIFEROL [id number] Lauren Zarate RN Start: 07-20-2015 End: 07-23-2015 take 1 tablet by mouth once daily VITAMIN D 1000 UNIT TABS One tablet by mouth daily CHOLECALCIFEROL [id number] Lauren Zarate RN Problems Active Problems Problem Classification Problem Date Documented Da te Episodic/Chronic Abdominal hernia (9 sources) Hiatal hernia; Translations: [Diaphragmatic hernia without obstruction or gangrene] Onset: 08-15-2011 07-31-2011 Episodic Acquired foot deformities (20 sources) Foot-drop; Translations: [Foot drop, left foot] 03-16-2025 Episodic Allergic reactions (9 sources) Contact dermatitis; Translations: [Unspecified contact dermatitis due to other agents] 06-13-2025 Episodic Cardiac dysrhythmias (20 sources) Sinus bradycardia; [...] 07-31-2015 Chronic Other and unspecified benign neoplasm (20 sources) History of polyp of colon; Translations: [...] disorders of arteries and arterioles] Chronic Other connective tissue disease (17 sources) History of lumbar fusion; Translations: [Arthrodesis status] 05-24-2025 Episodic Other connective tissue disease (2 sources) Arthrodesis status; Translations: [Arthrodesis status] Onset: 06-06-2025 Episodic Other gastrointestinal disorders (3 sources) Dysphagia; Translations: [Dysphagia, unspecified] 11-10-2014 Episodic Other lower respiratory disease (20 sources) Dyspnea; Translations: [Dyspnea, unspecified] 09-23-2023 Episodic [...] apnea (adult)(pediatric)] 10-08-2023 Chronic Residual codes; unclassified (20 sources) Edema of foot; Translations: [Localized edema] 10-12-2024 Episodic Spondylosis; intervertebral disc disorders; other back problems (20 sources) Arthritis of lumbosacral spine; Translations: [Spondylosis without myelopathy or radiculopathy, lumbosacral region] Chronic Spondylosis; intervertebral disc disorders; other back problems (20 sources) Chronic low back pain; Translations: [Lumbago with sciatica, left side] Onset: 02-13-2022 Episodic Unclassified (4 sources) History of lumbar fusion Unclassified (4 sources) Z98.1 - Arthrodesis status Unclassified (1 source) Low back pain, unspecified; Translations: [Low back pain, unspecified] Onset: 06-14-2025 Viral infection (20 sources) Disease caused by 2019-nCoV; Translations: [COVID-19] [...] Test Name Value Interpretation Reference Range Facility Orthopedic Visit Reporton Orthopedic Visit Report [facility] [address] [place] [address] OFFICE VISIT Date of Service: 06/20/25 MR#: [id number] Acct: [id number] Name: MOO HOROWITZ Rep #: [id number] : 1945 Provider: HONEY nicolas Age/Sex: 80/M Location: [facility] Status: Signed Intake Vital Signs 05/23/25 14:00 06/20/25 14:01 Height 5 ft 8 in 5 ft 8 in Weight: 190 lb BMI 28.8 Intake Visit Reasons: LUMBAR SPINE Chief Complaint: incision check Accompanied by: Is patient in pain?: Yes Pain scale (1-10): 4 Allergies diltiazem Adverse Reaction (Intermediate, Verified 06/20/25 14:04) Facial flushing and fatigue prednisone Adverse Reaction (Mild, Verified 06/20/25 14:04) Other carvedilol (From Coreg) Adverse Reaction (Verified 06/20/25 14:04) face tingling Medications ???Medication ???Instructions ???Recorded ???Confirmed ???Type ipratropium bromide 21 mcg (0.03 2 spray intranasal DAILY CONGESTIO N 09/23/23 06/20/25 History %) nasal spray metoprolol succinate 50 mg 50 mg PO BID HEART RATE #60 tabs 0 01/18/25 06/20/25 Rx tablet,extended release 24 hr apixaban 5 mg tablet (Eliquis) 5 mg PO BID BLOOD THINNER #60 tabs 03/27/25 06/20/25 Rx losartan 25 mg tablet 25 mg PO QHS HTN 05/10/25 06/20/25 History rosuvastatin 20 mg tablet 20 mg PO QODAY HLD 05/16/25 History acetaminophen 500 mg tablet 1,000 mg (2 x 500 mg) PO Q8 #30 06/20/25 Rx tabs tramadol 50 mg tablet 50 mg PO TID PRN pain #21 tabs 06/20/25 Rx alprazolam 0.5 mg tablet 0.5 mg PO QHS PRN anxiety 06/07/25 06/20/25 History losartan 50 mg tablet 50 mg PO .COMPLEX HTN #180 tabs 06/20/25 Rx cyclobenzaprine 5 mg tablet 5 mg PO BID PRN 06/13/25 06/20/25 History Have you fallen in the past year?: Yes [facility] Medical History Ambulates with cane High cholesterol Gastric reflux [...] provided and the decisions made by me, Sharon Jorgensen, SECURITY SYSTEMS TECHNICIAN-C 06/20/25 1401. Part of today???s visit was documented by Igor West MA, acting as scribe. MOO HOROWITZ is a pleasant 80 year old M here today for lumbar surgical incision check. He is s/p L4-5 posterior spine instrumented fusion, dos 05/23/[address] Andrews. Patient states he does have some low back pain toda rated at 4/10, had his therapy eval visit and is scheduled to begin physical therapy. Patient is accompanied by his who is assisting in caring for the wounds. Patient and state incision is improving, there has been no drainage, tolerating foam dressings well to the back and occasionally open to air. Report no incisional drainage, no redness, pain to the site, fever or chills. Perform daily and as needed antibacterial soap and water cleansing. He is keeping the incision covered with a foam border dressing which is not causing any skin irritation. Improved and healing skin abrasions of medical adhesive-related skin injury from adhesive bandages to R lumbar periwound area. ROS Const All systems reviewed are unremarkable except as noted in H and other (A O x 3, no apparent distress. No recent illness.) ENT Denies dizziness Card Denies chest pain, Denies (more content not included)... Normal [facility] Inital Evaluation (1) - PTon 06-15-2025 Inital Evaluation (1) - PT [facility] Physical Therapy [facility] [address] [place] [address] / REHABILITATION SERVICES INITIAL EVALUATION MR#: [id number] Acct: [id number] Name: MOO HOROWITZ Rep #: [id number] : 1945 80 From: Jarad Cline PT, Cert. T, OCS Referring DrKerry: ERICA Carvalho Status: REG RCR Insurance: MEDICARE PART A B [employer] SR SUPPLEMENT INS Patient's Visit Information Visit Information Visit Information: MOO HOROWITZ is a 80 year old M referred to Physical Therapy by ERICA Carvalho with a diagnosis of ARTHODESIS. Date of Evaluation: 06/15/25 Physical Therapist: Jarad Cline, PT, Cert MDT, OCS Visit Plan Frequency: 2x /Week Duration: 4 Weeks Plan: -PACEMAKER PRECAUTION S/P L3-4 POSTERIOR FUSION 05/23/25 RESTRICTION: NO LIFTING /NO BLT UNABLE TO LAY SUPINE DUE TO DECREASE HEALING INCISION PT INTERVENTIONS DLS ,POSTURAL EX'S ,BLE STRENGTHENING HIP , BALANCE TRAINING , AND ACTIVITY MODIFICATION Subjective Subjective: This 80 y/o male presents to physical therapy with s/p L4-5 posterior spine instrumented fusion on May [address] Andrews at [facility] . Patient d/c home on May 24 . Patient d/c to home next day with FWW. Patient restriction no BLT and lifting. Patient seen Gabriele Gunderson on 06/06 and assessed incision due to drainage but improving and x-rays looked good . But seen family DR dalton and Jeri Jorgensen to assess incision drainage. Prior to surgery patient had CT scan showed Multilevel degenerative disc disease outlined above. Postsurgical change L4/5. 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 Patient had h/o lumbar discectomy 3 years ago. Patient has pain at incision. Patient denies paresthesia/tingling- Bowel/bladder- .Coughing/sneezing-. Patient lives 1 story home with walk in shower. Patient able to bath /dress. No cooking/cleaning-. Patient condition affects QOL and function/gait SOCIAL: VOCATION: reired Pain Bilateral Back: Pain Intensity (Out of 10): 3 Pain Intensity Range: 8 Objective Objective: POSTURE:mild forward posture GAIT: ambulates with fww slow pedro decrease step length INCISION: dry crusty left side ,right bandage mild drainage but improving NEURO: denies paresthesia/tingling , reflexes L3-4,L4-5,L5-S1 1/3 FLEXABILITY: mod tight MMT: quads/hamstrings 4/5 ,hip flexion 4-/5 ,ankle 4/5 Special Tests L/S Slump test left side: Negative L/S Slump test right side: Negative L/S Left Straight Leg Raise: Negative L/S Right Straight Leg Raise: Negative Balance/Special Test Scores Oswestry Low Back Score: 27 Goals Goal 1:: Patient to be I with HEP for back Goal Time Frame: 4-6 Weeks Goal 2:: Patient to improve lumbar ROM for function of recovery to put on shoes Goal Time Frame: 4-6 Weeks Goal 3:: Patient to back oswestry by 5 points to improve function and gait Goal Time Frame: 4-6 Weeks Goal 4:: Patient to ambulate w/o device improved gait pattern Goal Time Frame: 4-6 Weeks Goal 5:: Patient improve back oswestry score 5 points to improve QOL Goal Time Frame: 4-6 Weeks Rehabilitation Potential Physical Therapy Diagnosis: Patient underwent s/p L3-4 posterior fusion instrumentation 05/23 with decrease gait with fww ,balance,weakness,decrease lumbar ROM thus benefit from skilled PT Rehabilitation Potential: Good Anticipated Interventions Patient/Client Instruction: Educate patient on: Condition and Plan of Care For the Purpose of:: To decrease pain, To increase ROM, To improve muscle performance and motor function, To improve ability to perform ADL's, To increase tolerance to activity/condition/positio n, To improve ability of physical actions for home/community/work/leisur e, To improve gait and locomotor functions, To improve health of tissue, To decrease soft tissue restriction, To increase flexibility/ROM and To improve endurance Therapeutic Exercise to Include: Strength training, Endurance training, Balance training, Postural training, Flexibilty training and Dynamic Lumbar Stabilization For the Purpose of:: To decrease pain, To increase ROM, To improve muscle performance and motor function, To improve ability to perform ADL's, To increase tolerance to activity/condition/positio n, To improve ability of physical actions for home/community/work/leisur e, To improve health of tissue, To decrease soft tissue restriction, To increase flexibility/ROM and To improve balance Text: Thank you for the opportunity to evaluate your patient. For Medicare and Medicare HMO plans, please review the plan of care and approve it. It will need to be FAXED BACK to us at [phone] for Medicare purposes. For Medicare only, by signing this I certify the plan of care. Please let me know if there are questions or concerns regarding this plan of care. Physician Signature: ___ (more content not included)... Normal [facility] Orthopedic Visit Reporton Orthopedic Visit Report [facility] Orthopedics [address] [place] [address] [address] [place] [address] OFFICE VISIT Date of Service: 06/13/25 MR#: [id number] Acct: [id number] Name: MOO HOROWITZ Rep #: [id number] : 1945 Provider: HONEY nicolas Age/Sex: 80/M Location: [facility] Status: Signed Intake Vital Signs 3 05/23/25 14:00 Height 5 ft 8 in Intake Visit Reasons: LUMBAR SPINE Chief Complaint: incision check Is patient in pain?: Yes (lumbar spine ) Pain scale (1-10): 5 Allergies diltiazem Adverse Reaction (Intermediate, Verified 06/13/25 14:32) Facial flushing and fatigue prednisone Adverse Reaction (Mild, Verified 06/13/25 14:32) Other carvedilol (From Coreg) Adverse Reaction (Verified 06/13/25 14:32) face tingling Medications 3 ???Medication ???Instructions ???Recorded ???Confirmed ???Type ipratropium bromide 21 mcg (0.03 2 spray intranasal DAILY CONGESTIO N 09/23/23 06/13/25 History %) nasal spray metoprolol succinate 50 mg 50 mg PO BID HEART RATE #60 tabs 0 01/18/25 06/13/25 Rx tablet,extended release 24 hr apixaban 5 mg tablet (Eliquis) 5 mg PO BID BLOOD THINNER #60 tabs 03/27/25 06/13/25 Rx losartan 25 mg tablet 25 mg PO QHS HTN 05/10/25 06/13/25 History rosuvastatin 20 mg tablet 20 mg PO QODAY HLD 05/16/25 History acetaminophen 500 mg tablet 1,000 mg (2 x 500 mg) PO Q8 #30 06/13/25 Rx tabs tramadol 50 mg tablet 50 mg PO TID PRN pain #21 tabs 06/13/25 Rx alprazolam 0.5 mg tablet 0.5 mg PO QHS PRN anxiety 06/07/25 06/13/25 History losartan 50 mg tablet 50 mg PO .COMPLEX HTN #180 tabs 06/13/25 Rx cyclobenzaprine 5 mg tablet 5 mg PO BID PRN 06/13/25 06/13/25 History Have you fallen in the past year?: Yes [facility] Medical History Ambulates with cane High cholesterol Gastric reflux [...] provided and the decisions made by me, HONEY Medellin 06/13/25 5017. Part of today???s visit was documented by Jennifer Harden RN, acting as scribe. MOO HOROWITZ is a 80 year old M here today for incision check. He is s/p L4-5 posterior spine instrumented fusion, dos 05/23/25. He only took three days of the Cephalexin because it upset his stomach. He has not noticed any further drainage at the incision site. He is keeping the incision covered with a bandaid. Agree with above. Patient is accompanied by his who is assisting in caring for the wounds. Patient and state incision is improving, decreased redness and no reported drainage. Continue with twice daily Betadine paints and dressings. ROS Const All systems reviewed are unremarkable except as noted in H and other (A O x 3, no apparent distress. No recent illness.) ENT Denies dizziness Card Denies chest pain, Denies dyspnea and Denies edema Resp Denies cough, Denies dyspnea and Reports other (No recent URI) GI Reports system reviewed and no additional complaints, except as documented, Denies nausea and Denies vomiting Musc Reports as per HPI and Reports back pain Details: Back stiffness, improving since surgery Neuro No dizziness and Yes other Psych Reports system reviewed and no additional complaints, except as documented Mychal/Lymph Denies (more content not included)... Normal [facility] Lumbar Spine 2 or 3 Viewson 06-06-2025 Lumbar Spine 2 or 3 Views [facility] [address] [place], [place] [address] Lumbar Spine 2 or 3 Views MR#: [id number] Acct: [id number] Name: MOO HOROWITZ Rep #: [id number] : 1945 M 80 From: Rudy Saab MD PCP: Dr. Paul Mac MD Status: DEP [facility] Study: Lumbar Spine 2 or 3 Views Date of Exam: Exam# [id number] Ordering Dr: Beth Gunderson PROCEDURE: LUMBAR SPINE 2 OR 3 VIEWS 06/06/2025 REASON FOR EXAM: S/P LUMBAR FUSION TECHNIQUE: Procedure Code: RADSPLL Modality: DX Procedure: LUMBAR SPINE 2 OR 3 VIEWS COMPARISON: 05/24/2025. FINDINGS: L4-5 posterior fusion. Moderate degenerative changes of the non fused levels. Vertebral body heights are maintained. No evidence of acute fracture. Grade 1 retrolisthesis of L2 on L3 and L3 on L4. RAD/Lumbar Spine 2 or 3 Views IMPRESSION: As above. Reading Location: [facility] CC: ERICA Carvalho; Dr. Pual Mac MD Rental Counter Clerk: Signed Normal [facility] Orthopedic Visit Reporton Orthopedic Visit Report [facility] Orthopedics [facility] [facility] [address] [facility] [address] [place] [address] OFFICE VISIT Date of Service: 06/06/25 MR#: [id number] Acct: [id number] Name: MOO HOROWITZ Rep #: [id number] : 1945 Provider: ERICA Carvalho Age/Sex: 80/M Location: [facility] Status: Signed Intake Vital Signs 3 04/17/25 13:16 05/23/25 14:00 Height 5 ft 8 in 5 ft 8 in Intake Visit Reasons: lumbar spine Allergies diltiazem Adverse Reaction (Intermediate, Verified 06/06/25 14:02) Facial flushing and fatigue prednisone Adverse Reaction (Mild, Verified 06/06/25 14:02) Other carvedilol (From Coreg) Adverse Reaction (Verified 06/06/25 14:02) face tingling Medications 3 ???Medication ???Instructions ???Recorded ???Confirmed ???Type alprazolam 0.5 mg tablet 0.5 mg PO QHS anxiety 12/07/15 History ipratropium bromide 21 mcg (0.03 2 spray intranasal DAILY CONGESTIO N 09/23/23 06/06/25 History %) nasal spray metoprolol succinate 50 mg 50 mg PO BID HEART RATE #60 tabs 0 01/18/25 06/06/25 Rx tablet,extended release 24 hr apixaban 5 mg tablet (Eliquis) 5 mg PO BID BLOOD THINNER #60 tabs 03/27/25 06/06/25 Rx Held on 05/24/25. Instructions: Resume on 05/25/25. losartan 25 mg tablet 25 mg PO QHS HTN 05/10/25 06/06/25 History losartan 50 mg tablet 50 mg PO BID HTN 05/10/25 06/06/25 History rosuvastatin 20 mg tablet 20 mg PO QODAY HLD 05/16/25 History simethicone 250 mg capsule (Gas-X) 250 mg PO DAILY PRN abdominal 06/06/25 History distention acetaminophen 500 mg tablet 1,000 mg (2 x 500 mg) PO Q8 #30 06/06/25 Rx tabs methocarbamol 500 mg tablet 750 mg (1.5 x 500 mg) PO TID PRN 0 05/24/25 06/06/25 Rx pain/spasms #60 tabs cephalexin 500 mg capsule 500 mg PO BID #14 caps 06/06/25 Rx tramadol 50 mg tablet 50 mg PO TID PRN pain #21 tabs 06/06/25 Rx Have you fallen in the past year?: Yes [facility] Medical History Ambulates with cane High cholesterol Gastric reflux [...] the decisions made by me, ERICA Carvalho 06/06/25 0743. Part of today???s visit was documented by Kathy BRONSON, acting as scribe. MOO HOROWITZ is a 80 year old M here today for 2 week post op, L4-5 posterior spine instrumented fusion, dos 05/23/25. He states that he is doing well but is still having pain. He is taking tramadol and the methocarbamol for pain. He is currently taking the Tramadol 3 times a day but would like to know if he is able to take it more than 3 times a day. He rates his pain today an 8/10. Patient is ambulating with a walker. Says that he has also been taking Tylenol as needed for his pain. He denies any fevers or chills. Ortho Exam General General: Yes no acute distress Neurologic: Yes alert and Yes oriented x3 Psychologic: Yes reasonable and appropriate Spine SPINE TESTING CERVICAL THORACIC LUMBAR Musculoskeletal Strength 0=absent - 5=normal Details: Neurological examination of the lower extremities shows grade 4 left dorsiflexion, this has been an improvement since before surgery which was grade 3. All other muscle groups show 5 power. Normal sensation across all dermatomes. Steri-Strips were rem (more content not included)... Normal [facility] Absolute lymphocyte countOrd ered By: Beth Gunderson on 05-24-2025 Lymphocytes Auto (Unsp spec) [#/Vol] 0.78 10*3/uL Low 0.83-4.51 [facility] Absolute neutrophil countOrd ered By: Beth Gunderson on 05-24-2025 Neutrophils (Bld) [#/Vol] 10.1 10*3/uL High 2.0-7.7 [facility] Anion gap in Serum or Plasma Ordered By: Johann Andrews on 05-24-2025 Anion gap [Moles/Vol] 11 mmol/L 5-15 [facility] Automated lymphocyte count a s percentage of total leukocytesOrdered By: Beth Gunderson on 05-24-2025 Lymphocytes/100 WBC Auto (Unsp spec) 6.3 % Low 19-41 [facility] BUN/creatinine ratioOrdered By: Johann Andrews on 05-24-2025 Urea nitrogen/Creatinine [Mass ratio] 20.5 mg/mg High 10-20 [facility] Basic Metabolic Profile (BMP )on 05-24-2025 BUN/CRE 20.5 RATIO High 10-20 [facility] Comment on above: Order Comment: REDRA W. PREVIOUS SPECIMEN REJECTED DUE TOHEMOLYSIS. 05/24/25813 Jarad Alcantar. Performed By: #### L 500.2500 ####[facility] [address] [place], [address] Calcium [Mass/Vol] 8.7 mg/dL Normal 7.6-11.0 [facility] Comment on above: Order Comment: REDRA W. PREVIOUS SPECIMEN REJECTED DUE TOHEMOLYSIS. 05/24/25813 Jarad Alcantar. Performed By: #### L 500.2500 ####[facility] [address] [place], [address] Chloride [Moles/Vol] 103 mmol/L Normal 98-108 [facility] Comment on above: Order Comment: REDRA W. PREVIOUS SPECIMEN REJECTED DUE TOHEMOLYSIS. 05/24/25813 Jarad Alcantar. Performed By: #### L 500.2500 ####[facility] [address] [place], [address] CO2 [Moles/Vol] 22.9 mmol/L Normal 21.0-32.0 [facility] Comment on above: Order Comment: REDRA W. PREVIOUS SPECIMEN REJECTED DUE TOHEMOLYSIS. 05/24/25813 Jarad Alcantar. Performed By: #### L 500.2500 ####[facility] [address] [place], [address] Creatinine [Mass/Vol] 1.04 mg/dL Normal 0.70-1.20 [facility] Comment on above: Order Comment: REDRA W. PREVIOUS SPECIMEN REJECTED DUE TOHEMOLYSIS. 05/24/25813 Jarad Alcantar. Performed By: #### L 500.2500 ####[facility] [address] [place], [address] ECRCL 62.31 ml/min Normal 50-250 [facility] Comment on above: Order Comment: REDRA W. PREVIOUS SPECIMEN REJECTED DUE TOHEMOLYSIS. 05/24/25813 Jarad Alcantar. Performed By: #### L 500.2500 ####[facility] [address] [place], [address] GAP 11 Normal 5-15 [facility] Comment on above: Order Comment: REDRA W. PREVIOUS SPECIMEN REJECTED DUE TOHEMOLYSIS. 05/24/25813 Jarad Alcantar. Performed By: #### L 500.2500 ####[facility] [address] [place], [address] GFR/1.73 sq M.predicted among non-blacks MDRD (S/P/Bld) [Vol rate/Area] 73 mL/min/{1.73_m2} Normal >60 [facility] Comment on above: Order Comment: REDRA W. PREVIOUS SPECIMEN REJECTED DUE TOHEMOLYSIS. 05/24/25813 Jarad lAcantar. Result Comment: mL/m in/1.73m2 CKD-EPI Creatinine Equation (2020) Performed By: #### L 500.2500 ####[facility] [address] [place], [address] Glucose [Mass/Vol] 158 mg/dL High 70-99 [facility] Comment on above: Order Comment: REDRA W. PREVIOUS SPECIMEN REJECTED DUE TOHEMOLYSIS. 05/24/25813 Jarad Alcantar. Performed By: #### L 500.2500 ####[facility] [address] [place], [address] Potassium [Moles/Vol] 4.6 mmol/L Normal 3.3-5.1 [facility] Comment on above: Order Comment: REDRA W. PREVIOUS SPECIMEN REJECTED DUE TOHEMOLYSIS. 05/24/25813 Jarad Alcantar. Performed By: #### L 500.2500 ####[facility] [address] [place], [address] Sodium [Moles/Vol] 137 mmol/L Normal 133-145 [facility] Comment on above: Order Comment: REDRA W. PREVIOUS SPECIMEN REJECTED DUE TOHEMOLYSIS. 05/24/25813 Jarad Alcantar. Performed By: #### L 500.2500 ####[facility] [address] [place], [address] Urea nitrogen [Mass/Vol] 21 mg/dL High 4-19 [facility] Comment on above: Order Comment: REDRA W. PREVIOUS SPECIMEN REJECTED DUE TOHEMOLYSIS. 05/24/25813 Jarad Alcantar. Performed By: #### L 500.2500 ####[facility] [address] [place], [address] BUN Normal -19 [facility] Comment on above: Result Comment: This specimen has been REJECTED due to Laboratory criteria: Hemolyzed. BAKARI MAI has been notified of need of recollection. 05/24/25812 Jarad Alcantar Performed By: #### L 100.0100, L500.2500 #### [facility] [address] [place], [address] BUN/CRE Normal 10-20 [facility] Comment on above: Result Comment: This specimen has been REJECTED due to Laboratory criteria: Hemolyzed. BAKARI MAI has been notified of need of recollection. 05/24/25812 Jarad Alcantar Performed By: #### L 100.0100, L500.2500 #### [facility] [address] [place], [address] Calcium Normal 7.6-11.0 [facility] Comment on above: Result Comment: This specimen has been REJECTED due to Laboratory criteria: Hemolyzed. BAKARI MAI has been notified of need of recollection. 05/24/25812 Jarad Alcantar Performed By: #### L 100.0100, L500.2500 #### [facility] [address] [place], [address] CL Normal 98-108 [facility] Comment on above: Result Comment: This specimen has been REJECTED due to Laboratory criteria: Hemolyzed. BAKARI MAI has been notified of need of recollection. 05/24/25812 Jarad Chan White Performed By: #### L 100.0100, L500.2500 #### [facility] [address] [place], [address] CO2 Normal 21.0-32.0 [facility] Comment on above: Result Comment: This specimen has been REJECTED due to Laboratory criteria: Hemolyzed. BAKARI MAI has been notified of need of recollection. 05/24/25812 Jarad L White Performed By: #### L 100.0100, L500.2500 #### [facility] [address] [place], [address] CREAT,SERUM Normal 0.70-1.20 [facility] Comment on above: Result Comment: This specimen has been REJECTED due to Laboratory criteria: Hemolyzed. BAKARI MAI has been notified of need of recollection. 05/24/25812 Jarad Chan White Performed By: #### L 100.0100, L500.2500 #### [facility] [address] [place], [address] eGFR Normal >60 [facility] Comment on above: Result Comment: This specimen has been REJECTED due to Laboratory criteria: Hemolyzed. BAKARI MAI has been notified of need of recollection. 05/24/25812 Jarad Chan White Performed By: #### L 100.0100, L500.2500 #### [facility] [address] [place], [address] GAP Normal 5-15 [facility] Comment on above: Result Comment: This specimen has been REJECTED due to Laboratory criteria: Hemolyzed. BAKARI MAI has been notified of need of recollection. 05/24/25812 Jarad L White Performed By: #### L 100.0100, L500.2500 #### [facility] [address] [place], [address] GLU Normal 70-99 [facility] Comment on above: Result Comment: This specimen has been REJECTED due to Laboratory criteria: Hemolyzed. BAKARI MAI has been notified of need of recollection. 05/24/25812 Jarad Chan White Performed By: #### L 100.0100, L500.2500 #### [facility] [address] [place], [address] Potassium Normal 3.3-5.1 [facility] Comment on above: Result Comment: This specimen has been REJECTED due to Laboratory criteria: Hemolyzed. BAKARI MAI has been notified of need of recollection. 05/24/25812 Jarad Chan White Performed By: #### L 100.0100, L500.2500 #### [facility] [address] [place], [address] Basic Metabolic Profile (BMP) Normal 133-145 [facility] Comment on above: Result Comment: This specimen has been REJECTED due to Laboratory criteria: Hemolyzed. BAKARI MAI has been notified of need of recollection. 05/24/25812 Jarad Chan White Performed By: #### L 100.0100, L500.2500 #### [facility] [address] [place], [address] Basophil percentageOrdered B y: Beth Gunderson on 05-24-2025 Basophils/100 WBC (Bld) 0.2 % 0-1 [facility] CBC W/Diff, Automatedon 05-15 Absolute Lymph 0.78 X10 3/uL Low 0.83-4.51 [facility] Comment on above: Performed By: #### L 100.0100, L500.2500 #### [facility] [address] [place], [address] Absolute Neut 10.1 X10 3/uL High 2.0-7.7 [facility] Comment on above: Performed By: #### L 100.0100, L500.2500 #### [facility] [address] [place], [address] Basophils/100 WBC (Bld) 0.2 % Normal 0-1 [facility] Comment on above: Performed By: #### L 100.0100, L500.2500 #### [facility] [address] [place], [address] Eosinophils/100 WBC (Bld) 0.0 % Normal 0-5 [facility] Comment on above: Performed By: #### L 100.0100, L500.2500 #### [facility] [address] [place], [address] Erythrocyte distribution width (RBC) [Ratio] 13.9 % Normal 11.6-14.6 [facility] Comment on above: Performed By: #### L 100.0100, L500.2500 #### [facility] [address] [place], [address] Hematocrit (Bld) [Volume fraction] 32.6 % Low 40-54 [facility] Comment on above: Performed By: #### L 100.0100, L500.2500 #### [facility] [address] [place], [address] Hemoglobin (Bld) [Mass/Vol] 10.9 g/dL Low 13.0-16.5 [facility] Comment on above: Performed By: #### L 100.0100, L500.2500 #### [facility] [address] [place], [address] IG% 0.400 Normal 0.0-0.9 [facility] Comment on above: Result Comment: IG% - Immature Granulocytes (promyelocytes, myelocytes and metamyelocytes) > 1% indicates that a LEFT SHIFT is Present. Performed By: #### L 100.0100, L500.2500 #### [facility] [address] [place], [address] Lymphocytes/100 WBC (Bld) 6.3 % Low 19-41 [facility] Comment on above: Performed By: #### L 100.0100, L500.2500 #### [facility] [address] [place], [address] MCH (RBC) [Entitic mass] 31.9 pg Normal 27.0-32.0 [facility] Comment on above: Performed By: #### L 100.0100, L500.2500 #### [facility] [address] [place], [address] MCHC (RBC) [Mass/Vol] 33.4 g/dL Normal 32-36 [facility] Comment on above: Performed By: #### L 100.0100, L500.2500 #### [facility] [address] [place], [address] MCV (RBC) [Entitic vol] 95.3 fL High 80-94 [facility] Comment on above: Performed By: #### L 100.0100, L500.2500 #### [facility] [address] [place], [address] Monocytes/100 WBC (Bld) 11.2 % High 0-10 [facility] Comment on above: Performed By: #### L 100.0100, L500.2500 #### [facility] [address] [place], [address] Neutrophils/100 WBC (Bld) 81.9 % High 47-70 [facility] Comment on above: Performed By: #### L 100.0100, L500.2500 #### [facility] [address] [place], [address] Nucleated RBC (Bld) [#/Vol] 0 10*3/uL Normal 0-5 [facility] Comment on above: Performed By: #### L 100.0100, L500.2500 #### [facility] [address] [place], [address] Platelet mean volume (Bld) [Entitic vol] 10.8 fL Normal 6.2-12.0 [facility] Comment on above: Performed By: #### L 100.0100, L500.2500 #### [facility] [address] [place], [address] Platelets (Bld) [#/Vol] 165 10*3/uL Normal 150-450 [facility] Comment on above: Performed By: #### L 100.0100, L500.2500 #### [facility] [address] [place], [address] RBC (Bld) [#/Vol] 3.42 10*6/uL Low 4.6-6.2 [facility] Comment on above: Performed By: #### L 100.0100, L500.2500 #### [facility] [address] [place], [address] RDW SD 48.5 fl High 35.1-43.9 [facility] Comment on above: Performed By: #### L 100.0100, L500.2500 #### [facility] [address] [place], [address] WBC (Bld) [#/Vol] 12.3 10*3/uL High 4.4-11.0 [facility] Comment on above: Performed By: #### L 100.0100, L500.2500 #### [facility] [address] [place], [address] Carbon dioxide, total [Moles /volume] in Central venous bloodOrdered By: Johann Andrews on 05-24-2025 CO2 [Moles/Vol] 22.9 mmol/L 21.0-32.0 [facility] Chloride assayOrdered By: Delmi Andrews on 05-24-2025 Chloride [Moles/Vol] 103 mmol/L 98-108 [facility] Eosinophil percentageOrdered By: Beth Gunderson on 05-24-2025 Eosinophils/100 WBC (Bld) 0.0 % 0-5 [facility] Erythrocyte distribution wid th ratioOrdered By: Beth Gunderson on 05-24-2025 Erythrocyte distribution width (RBC) [Ratio] 13.9 % 11.6-14.6 [facility] Erythrocyte distribution wid th standard deviationOrdered By: Beth Jalyn on 05-24-2025 Erythrocyte distribution width (RBC) [Ratio] 48.5 fl High 35.1-43.9 [facility] Glomerular filtration rate ( GFR) estimation/1.73 sq m using serum, plasma, or whole bOrdered By: Johann Andrews on 05-24-2025 GFR/1.73 sq M.predicted among non-blacks MDRD (S/P/Bld) [Vol rate/Area] 73 mL/min/{1.73_m2} >60 [facility] Comment on above: mL/min/1.73m2 CKD-EP I Creatinine Equation (2020) Hematocrit Auto (Bld) [Volum e fraction]Ordered By: Beth Gunderson on 05-24-2025 Hematocrit (Bld) [Volume fraction] 32.6 % Low 40-54 [facility] Hemoglobin measurementOrdere d By: Beth Gunderson on 05-24-2025 Hemoglobin (Bld) [Mass/Vol] 10.9 g/dL Low 13.0-16.5 [facility] Immature granulocytes/100 WB C Auto (Bld)Ordered By: Beth Gunderson on 05-24-2025 Immature granulocytes/100 WBC (Bld) 0.400 % 0.0-0.9 [facility] Comment on above: IG% - Immature Granu locytes (promyelocytes, myelocytes and metamyelocytes) > 1% indicates that a LEFT SHIFT is Present. Lumbar Spine 2 or 3 Viewson 05-24-2025 Lumbar Spine 2 or 3 Views [facility] [address] [place] [address] Lumbar Spine 2 or 3 Views MR#: [id number] Acct: [id number] Name: MOO HOROWITZ Rep #: [id number] : 1945 M 80 From: Ash Sanders MD PCP: Dr. Paul Mac MD Status: ADM IN Study: Lumbar Spine 2 or 3 Views Date of Exam: Exam# [id number] Ordering Dr: Johann Andrews MD PROCEDURE: LUMBAR SPINE 2 OR 3 VIEWS 05/24/2025 REASON FOR EXAM: STATUS POST LUMBAR FUSION TECHNIQUE: Procedure Code: RADSPLL Modality: DX Procedure: LUMBAR SPINE 2 OR 3 VIEWS COMPARISON: April 12, 2025 FINDINGS: Vertebrae: Large marginal osteophytes are shown throughout the lumbar spine. Once again there is mild anterior wedging of T12 and L1 vertebral bodies with proximally 25% height loss. Posterior fusion of L4 and L5 has been performed with a disc spacer in place and a single screw anteriorly on the left. Discs: [id number]-lv-[id number] loss of disc height throughout the lumbar spine. Alignment: Mild straightening of the lordosis. No significant spondylolisthesis. RAD/Lumbar Spine 2 or 3 Views IMPRESSION: Uncomplicated posterior fusion L4 and L5. Advanced degenerative changes similar to prior CT. Reading Location: [facility] CC: Dr. Johann Andrews MD; Dr. Paul Mac MD Rental Counter Clerk: Signed Normal [facility] MCV (mean corpuscular volume ) determinationOrdered By: Beth Gunderson on 05-24-2025 MCV (RBC) [Entitic vol] 95.3 fL High 80-94 [facility] Mean corpuscular hemoglobin (MCH) determinationOrdered By: Beth Gunderson on 05-24-2025 MCH (RBC) [Entitic mass] 31.9 pg 27.0-32.0 [facility] Mean corpuscular hemoglobin concentration (MCHC) determinationOrdered By: Beth Gunderson on 05-24-2025 MCHC (RBC) [Mass/Vol] 33.4 g/dL 32-36 [facility] Mean platelet volume determi nationOrdered By: Beth Gunderson on 05-24-2025 Platelet mean volume (Bld) [Entitic vol] 10.8 fL 6.2-12.0 [facility] Monocyte percentageOrdered B y: Beth Gunderson on 05-24-2025 Monocytes/100 WBC (Bld) 11.2 % High 0-10 [facility] Neutrophil percentageOrdered By: Beth Gunderson on 05-24-2025 Neutrophils/100 WBC (Bld) 81.9 % High 47-70 [facility] Nucleated red blood cell per centageOrdered By: Beth Gunderson on 05-24-2025 Nucleated RBC/100 WBC (Bld) [Ratio] 0 % 0-5 [facility] Pacemaker Checkon 05-24-2025 Pacemaker Check [facility] [address] [place] [address] Pacemaker Check Date of Service: 05/24/25 1628 MR#: [id number] Acct: [id number] Name: MOO HOROWITZ Rep #: [id number] : 1945 From: Sharon Gunn Age/Sex: 80/M [place] [facility] [place]: Signed Billing Codes PM Device Codes: 61221 PM Dev Prog Eval, Multi Assessment and Plan Assessment and Plan (1) Biventricular cardiac pacemaker in situ: Status: Chronic (2) Left bundle branch block (LBBB): Status: Chronic (3) Mobitz type II atrioventricular block: Status: Chronic Medications: On Hold apixaban (Eliquis) Hold Comment: Resume on 05/25/25. 5 mg PO BID 60 tabs 11RF BLOOD THINNER 05/24/25 1629 Date Sharon Gunn Cosignamira Signature: Date (if applicable) CC: Normal [facility] Platelet countOrdered By: Veronica Gunderson on 05-24-2025 Platelets (Bld) [#/Vol] 165 10*3/uL 150-450 [facility] Potassium measurement (mass/ volume)Ordered By: Johann Andrews on 05-24-2025 Potassium (Unsp spec) [Mass/Vol] 4.6 mmol/L 3.3-5.1 [facility] RBC Auto (Bld) [#/Vol]Ordere d By: Beth Gunderson on 05-24-2025 RBC (Bld) [#/Vol] 3.42 10*6/uL Low 4.6-6.2 [facility] Serum creatinine measurement (mass/volume)Ordered By: Johann Darryl on 05-24-2025 Creatinine [Mass/Vol] 1.04 mg/dL 0.70-1.20 [facility] Serum glucose measurement (m ass/volume)Ordered By: Johanncoy Andrews on 05-24-2025 Glucose [Mass/Vol] 158 mg/dL High 70-99 [facility] Serum or plasma calcium annette urement (mass/volume)Ordered By: Johanncoy Andrews on 05-24-2025 Calcium [Mass/Vol] 8.7 mg/dL 7.6-11.0 [facility] Serum or plasma urea nitroge n measurement (mass/volume)Ordered By: Johann Andrews on 05-24-2025 Urea nitrogen [Mass/Vol] 21 mg/dL High 4-19 [facility] Sodium levelOrdered By: [facility] coy Darryl on 05-24-2025 Sodium [Moles/Vol] 137 mmol/L 133-145 [facility] White blood cell (WBC) count Ordered By: Bteh Gunderson on 05-24-2025 WBC (Bld) [#/Vol] 12.3 10*3/uL High 4.4-11.0 [facility] Bedside Glucoseon 05-23-2025 FINGERSTICK GLU 86 mg/dL Normal 74-106 [facility] Comment on above: Result Comment: PINEDA ALVARADO OF PATIENT CARE PER NURSING PROTOCOL Performed By: #### L 501.080 #### [facility] [address] [place], [address] Consultation - Hospitaliston 05-23-2025 Consultation - Hospitalist [facility] Medical Records Department [address] [place] [address] Consultation - Hospitalist 05/23/25 1435 MR#: [id number] Acct: [id number] Name: MOO HOROWITZ Rep #: [id number] : 1945 80 From: Cuate Hawthorne DO PCP: Dr. Paul Mac MD Status:ADM IN Location: [place]3 [id number] Assessment Plan Assessment/Plan (1) Lumbar stenosis with neurogenic claudication: PLAN: Plan Patient is a 80-year-old male who presented to [facility] on 05/23/2025 for planned lumbar fusion procedure. Medicine consulted postoperatively for medical management. 1. L4-5 disc generation with recurrent disc herniation, stenosis with neurogenic claudication and left foot drop ??? Orthopedic surgery primary. S/p L4-5 oblique lumbar fusion procedure with Dr. Andrews on 05/23. Tolerated procedure well. Postoperative pain control, DVT prophylaxis and further management per orthopedics. PT/OT/case management consulted. Follow-up a.m. labs. 2. History of paroxysmal A-fib/flutter on Eliquis, history of Mobitz type II block s/p pacemaker placement, nonobstructive PAD, hypertension, hyperlipidemia ??? Follows with [place] [facility], last office visit on 05/10. Had pacemaker device evaluation on 05/10 that showed no AT/AF episodes. Was okay to hold Eliquis temporarily for surgery; will defer timing of restarting Eliquis to orthopedics. In normal sinus rhythm and normotensive postoperatively. Okay to resume home Toprol, losartan and rosuvastatin. 3. Anxiety/insomnia ??? Okay to continue home low-dose Xanax at night. 4. LORI ??? Continue PAP therapy at night. Total clinical time spent by myself addressing the patient's medical issues, reviewing all the data, and collaborating with patient's care team: 36 minutes. HPI Consult Data Date of Consult: 05/23/25 HPI Narrative Reason for Consultation: Postoperative medical management HPI Narrative: MOO HOROWITZ, is a 80 M who presented to [facility] on 05/23/2025 for planned orthopedic procedure. Medicine consulted postoperatively right management. Patient medical history significant for a 4???5 disc generation with recurrent disc herniation, stenosis with neurogenic claudication and left foot drop. He had an L4-5 oblique lumbar body fusion procedure done with Dr. Andrews today. Tolerated procedure well. I saw the patient at bedside this afternoon. Patient was sitting back fairly comfortably and his bedside chair and conversing normally. Noted that he had been moved from bed to the bedside chair with the assistance of nursing and did have some low back pain with this. He was told he was going to work with physical therapy shortly after I saw him and was looking forward to doing this. He denied any other acute concerns at this time. [facility] Medical History Ambulates with cane High cholesterol Gastric reflux [...] Medications ???Medication ???Instructions ???Recorded ???Last Taken ???Type alprazolam 0.5 mg tablet 0.5 mg PO QHS anxiety 12/07/1505/08 History acetaminophen 500 mg tablet 1,000 mg PO DAILY PAIN 12/25/22 History (Tylenol Extra Strength) ipratropium bromide 21 mcg (0.03 2 spray intranasal DAILY CONGESTIO N 09/23/23 05/23/25 05:00 History %) nasal spray metoprolol succinate 50 mg 50 mg PO BID HEART RATE #60 tabs 0 01/18/25 05/23/25 05:00 Rx tablet,extended release 24 hr apixaban 5 mg tablet (Eliquis) 5 mg PO BID BLOOD THINNER #60 tabs 03/27/25 05/20/25 Rx cyclobenzaprine 10 mg tablet 10 mg PO TID PRN muscle spasm #30 04/26/25 05/22/25 Rx tabs losartan 25 mg tablet 25 mg PO QHS HTN 05/10/25 05/22/25 History losartan 50 mg tablet 50 mg PO BID HTN 05/10/25 05/23/25 05:00 History meloxicam 15 mg tablet 15 mg PO .QOD INFLAMATION 05/10/25 05/16/25 History tramadol 50 mg tablet 50 mg PO TID PRN pain 05/10/25 Unk nown History rosuvastatin 20 mg tablet 20 mg PO QODAY HLD 05/16/25 History simethicone 250 mg capsule (Gas-X) 250 mg PO DAILY PRN abdominal Unknown History distention Allergy/AdvRe (more content not included)... Normal [facility] Gl[facility] measurement at [facility] deOrdered By: Johann Andrews on 05-23-2025 Glucose [Mass/Vol] 86 mg/dL 74-106 [facility] Comment on above: MANAGEMENT OF PATIEN T CARE PER NURSING PROTOCOL Lumbar Spine 2 or 3 Viewson 05-23-2025 Lumbar Spine 2 or 3 Views [facility] [address] [place] [address] Lumbar Spine 2 or 3 Views MR#: [id number] Acct: [id number] Name: MOO HOROWITZ Rep #: [id number] : 1945 M 80 From: Ash Sanders MD PCP: Dr. Paul Mac MD Status: DIS IN Study: Lumbar Spine 2 or 3 Views Date of Exam: Exam# [id number] Ordering Dr: Johann Andrews MD PROCEDURE: LUMBAR SPINE 2 OR 3 VIEWS 05/23/2025 REASON FOR EXAM: 360 LUMBAR FUSION L4-5 TECHNIQUE: Procedure Code: RADSPLL Modality: DX Procedure: LUMBAR SPINE 2 OR 3 VIEWS Fluoroscopy time: 82 seconds Total images: 10 COMPARISON: April 12, 2025, June 20, 2022 FINDINGS: It is assumed there are 5 lumbar type vertebral bodies. Fluoroscopic spot images were obtained with a small rdfrg-tr-ekso over the lower lumbar spine. Initial images show localization of the L4/5 disc space with subsequent disc spacer placed. This is followed by pedicle screws and rods at L4 and L5. An additional screw in the anterolateral aspect of L4 is present. Alignment is anatomic. RAD/Lumbar Spine 2 or 3 Views IMPRESSION: Fluoroscopic localization and guidance. Correlate with procedural note. Reading Location: [id number] CC: Dr. Johann Andrews MD; Dr. Paul Mac MD Rental Counter Clerk: Signed [facility] MR/POSTOP.ANEon 05-23-2025 MR/POSTOP.ANE [facility] Medical Records Department [address] [place] [address] Anesthesia Postop Eval I 05/23/25 1154 MR#: [id number] Acct: [id number] Name: MOO HOROWITZ Rep #: [id number] : 1945 80 From: Hernando Lopez CRNA PCP: Dr. Paul Mac MD Status:ADM IN Y Race: C Location: [place] [address] Anesthesia: Postop Eval I Current Vital Signs Temperature: 98.3 F Pulse Rate: 70 Blood Pressure: 126/67 Respiratory Rate: 14 Pulse Ox: 99 Assessment Airway patent: Yes Spontaneous unlabored respirations: Yes nausea: No Vomiting: No Anesthesia Complication: No Fluid Hydration Crystalloid volume administer (ml): 1,700 Total IV fluid infused: 1,700 Progress Note Anesthesia document: Postop Eval 1 completed: Yes 05/23/25 1155 Date Hernando Lopez RETAIL [employer] SPECIALIST Cosigner Signature: Date CC: Signed [facility] MR/[id number] 05-23-2025 MR/POSTOPAN2 [facility] Medical Records Department [address] [place] [address] Anesthesia Postop Eval II 05/23/25 1233 MR#: [id number] Acct: [id number] Name: MOO HOROWITZ Rep #: [id number] : 1945 80 From: Yen Flowers CRNA PCP: Dr. Paul Mac MD Status:ADM IN Y Race: C Location: [place] [address] Anesthesia Postop Eval I Sum Postop Eval Completion status Anesthesia document: Postop Eval 1 completed: Yes Anesthesia Postop Eval I Summary Anesthesia Postop Eval I Summary: Anesthesia Postop Eval I: Assessment Summary Airway patent Yes 05/23/25 11:54 RETAIL ZONE SPECIALIST.TNES Spontaneous unlabored Yes 05/23/25 11:54 RETAIL ZONE SPECIALIST.TNES respirations Mental status nausea No 05/23/25 11:54 RETAIL ZONE SPECIALIST.TNES Vomiting No 05/23/25 11:54 RETAIL ZONE SPECIALIST.TNES Anesthesia Postop Eval I: Fluid Summary Crystalloid volume administer 1,700 05/23/25 11:54 RETAIL ZONE SPECIALIST.TNES (ml) Colloids volume administered ( ml) Blood Product volume administered (ml) Total IV fluid infused 1,700 05/23/25 11:54 RETAIL ZONE SPECIALIST.TNES Anesthesia Postop Eval I: Summary Notes Anesthesia Complication No 05/23/25 11:54 RETAIL ZONE SPECIALIST.TNES Anesthesia Complication Comment: Post-operative progress note Anesthesia: Postop Eval II Evaluation Mental status: Awake and Calm Pain Level: 0 nausea: No Vomiting: No Complications Anesthesia Complication: No 05/23/25 1234 Date Yen Flowers RETAIL [employer] SPECIALIST Cosigner Signature: Date CC: Signed Normal [facility] Operative Reporton 5 Operative Report [facility] Medical Records Department [address] [place] [address] Operative Report 05/23/25 1156 MR#: [id number] Acct: [id number] Name: MOO HOROWITZ Rep #: [id number] : 1945 80 From: Johann Andrews MD PCP: Dr. Paul Mac MD Status:ADM IN Location: [facility] [id number] Procedures Musculoskeletal 20xxx-29xxx: Other Procedure See Report Operative Report (Standard) Operative Information Date of Procedure: 05/23/25 Pre-Operative Diagnosis: L4-5 disc degeneration, recurrent disc herniation, stenosis with neurogenic claudication, left foot drop Post-Operative Diagnosis: Same Surgery/Procedure Performed: L4-5 posterior spine instrumented fusion nonprofit manager: Yes Electronic Instrument Trades Worker: Beth Gunderson Tasks completed by preschool assistant: Closing, Implanting device, Hemostasis: Electrocautery and Retracting Type of Anesthesia: General RN Documented Start/Stop Times: Operation Date: 05/23/25 07:30 Case Time Into Pre-Op 05/23/25 05:36 Out of Pre-Op 05/23/25 07:26 Anesthesia Start 05/23/25 07:37 Into Room 05/23/25 07:37 Procedure Start 05/23/25 08:16 Procedure End 05/23/25 11:41 Anesthesia End 05/23/25 11:46 Out of Room 05/23/25 11:46 Procedure Start Time: 08:16 Procedure Stop Time: 11:41 Select all DRAINS/GRAFTS/IMPLANTS that apply: Graft Graft details: Allograft cancellous chips and Implanted device Implanted device details: Advanced Cooling Therapyuy Viper prime pedicle screw instrumentation Estimated Blood Loss: 150 cc Specimen collected: No Description of surgery: Preoperative diagnosis: L4-5 disc degeneration, recurrent disc herniation, stenosis with neurogenic claudication, left foot drop Postoperative diagnosis: Same Name of procedures: L4-5 posterior percutaneous pedicle screw instrumented fusion, prone: ??? L4-5 posterior spinal fusion 02974 ??? L4-5 posterior pedicle screw instrumentation 31043 ??? Allograft cancellous chips [id number] Attending Surgeon: Dr. Johann Andrews Estimated blood loss: 150 mL (total for entire case) Anesthesia: General Complications: None Description of procedure: After the anterior procedure was complete, the patient was then turned supine. The patient was then transferred to Owen table in prone position. Back was prepped and draped in usual fashion. C-arm AP view was then taken. C-arm was positioned in a way that L4 was centralized and superior endplate of was parallel to the beam. Spinous process was centered between the pedicles. Midline was marked with skin marker and lateral borders of the pedicles were also marked. Skin marker was also utilized to micah transversely across the middle of the pedicles at L4. 2 longitudinal paramedian incisions of 1 inch were placed. The fascia was incised vertically. Finger dissection was utilized to palpate the transverse process and facet joint. Viper Prime screws with towers were inserted and docked onto the transverse processes. This was then slowly moved medially to reach the superior articular process of L4. This was then confirmed on C-arm and then a mallet was utilized to drive the trocar into the pedicle going up to the medial wall of the pedicle on AP view. This was performed both sides. C-arm lateral view confirmed that the tip of the trocar was in the vertebral body, and the screw was advanced into the pedicle and vertebral body. This was repeated similarly at L5 bilaterally. Screw sizes were 7 x 50 mm at L4 and L5 on both sides. 45 mm precontoured titanium 5.5 mm lordotic colleen on both sides were then passed through the screw extensions and reduced down to the screws with the help of Short Fuzeer instrumentation system on both sides. AP and lateral view of the C-arm showed good positioning of the screws and cages. Final tightening with the torque screwdriver was then completed. Because of the adequate near complete discectomy anteriorly with removal of some extruded fragments in the anterior procedure, decision was made not to perform posterior decompression on the left. Sasha was utilized to roughen the facet joint at L4-5 on the right side. Cancellous allograft bone chips mixed with bone marrow aspirate were then placed over this decorticated area. Hemostasis was achieved. Closure was done in layers with 0 Vicryls for the fascia, 2-0 Vicryls for the subcutaneous tissue, and Monocryl for the skin. Dermabond was applied. Dressings were applied covered with Tegaderm. The patient was then turned supine onto a hospital bed. The patient was extubated and taken to PACU in stable condition. The patient tolerated the procedure well and no complications occurred. Dep[employer] cage Viper Prime minimally invasive pedicle screw instrumentation system was utilized in this case. No dural tear was identified intraoperatively. I was present for the entirety of the case and performed the surgery. (more content not included)... Normal [facility] Operative Report [facility] Medical Records Department [address] [place] [address] Operative Report 05/23/25 1148 MR#: [id number] Acct: [id number] Name: MOO HOROWITZ Rep #: [id number] : 1945 80 From: Johann Andrews MD PCP: Dr. Paul Mac MD Status:ADM IN Location: 3 PD083-5 Procedures Musculoskeletal 20xxx-29xxx: Other Procedure See Report Operative Report (Standard) Operative Information Date of Procedure: 05/23/25 Pre-Operative Diagnosis: L4-5 disc degeneration, recurrent disc herniation, stenosis with neurogenic claudication, left foot drop Post-Operative Diagnosis: Same Surgery/Procedure Performed: L4-5 oblique lumbar body fusion nonprofit manager: Yes Electronic Instrument Trades Worker: Beth Gunderson Tasks completed by preschool assistant: Closing, Removing tissue, Hemostasis: Electrocautery and Retracting Type of Anesthesia: General RN Documented Start/Stop Times: Operation Date: 05/23/25 07:30 Case Time Into Pre-Op 05/23/25 05:36 Out of Pre-Op 05/23/25 07:26 Anesthesia Start 05/23/25 07:37 Into Room 05/23/25 07:37 Procedure Start 05/23/25 08:16 Procedure End 05/23/25 11:41 Anesthesia End 05/23/25 11:46 Out of Room 05/23/25 11:46 Procedure Start Time: 08:16 Procedure Stop Time: 11:41 Select all DRAINS/GRAFTS/IMPLANTS that apply: Graft Graft details: Allograft cancellous chips, autologous iliac crest bone marrow aspirate and Implanted device Implanted device details: DePuy cougar lateral lumbar interbody cage???peek Estimated Blood Loss: 150 cc Specimen collected: No Description of surgery: Preoperative diagnosis: L4-5 disc degeneration, recurrent disc herniation, stenosis with neurogenic claudication, left foot drop Postoperative diagnosis: Same Name of procedures L4-5 oblique lumbar interbody fusion (OLIF), minimally invasive left sided approach, lateral decubitus: ??? L4-5 anterolateral spinal fusion 14538 ??? L4-5 insertion of cage ??? Bone graft aspirate left iliac crest separate incision ??? Allograft cancellous chips Attending Surgeon: Dr. Johann Andrews Estimated blood loss: 150 mL Anesthesia: General Complications: None Indications: Patient is a 80-year-old pleasant gentleman who has had a long history of low back pain and left fourth and right lower extremity radiation, difficulty walking distances, left foot weakness. Xrays CT myelogram revealed L4-5 disc degeneration, with possible left paracentral disc herniation and lateral recess stenosis, postsurgical changes of left laminotomy. Due to the significant persistent weakness of the left foot and persistent pain not improving with nonsurgical treatment, the patient elected to undergo surgical decompression fusion. All surgical options were discussed with the patient including anterior and posterior approaches. All risks and benefits associated with the procedure were explained to the patient. The risks include but are not limited to infection, bleeding, injury to nerves and vessels including major vessels like IVC and aorta, persistent paresthesia, persistent pain, dural tear, need for further procedures, adjacent segment degeneration, pseudoarthrosis, hardware failure, retrograde ejaculation, paralytic ileus, etc. Procedure: The patient was identified in the preoperative holding suite using Unique patient identifiers. Skin was marked, consent was reviewed, and all questions were answered. The patient was then brought back to the operative room. A surgical timeout was performed to make sure correct procedure was being done on the correct patient and all operative room staff were on the same page. General endotracheal anesthesia was then given to the patient. Lama catheter was inserted. The patient was then carefully positioned in right lateral decubitus position with the left side up on a regular OR table. Axillary roll was placed and all bony prominences were well- padded. Hip positioners were placed in the posterior buttocks and anterior sternal area. The surgical area was prepped and draped in usual fashion. Preoperative antibiotic was injected IV as preoperative antibiotic. A final timeout was then again done just before starting the procedure. A 2 inch incision oblique was taken in the left lower quadrant of the abdomen 2 fingerbreadths away from the iliac crest and the lower ribs. Sharp dissection with Bovie was carried out up to the fascia covering the external oblique. The external oblique, internal oblique and transversus abdominis muscles were split along the muscle fibers and retroperitoneal space was entered. Sponge sticks were utilized to move the bowel and peritoneum luy-wx-ena-way and psoas muscle was exposed staying within the retroperitoneal plane. Crispy Gamerframe retractor system was positioned and the retractor blade was applied onto the psoas. The int (more content not included)... Normal [facility] Hepatitis A AB, Totalon 09-0 HEPATITIS A,TOT Negative Normal Negative [facility] Comment on above: Result Comment: Comm ent: The HAV total antibody assay detects both IgG and IgM but does not differentiate between them. A negative result suggests susceptibility to infection. A positive result could be due to vaccination, previously resolved infection or active infection. Testing for HAV IgM should be performed if active HAV infection is suspected. [facility] offers profiles that will automatically reflex positive HAV total antibody results to IgM (e.g., panel #[id number] HAV Antibody w/ Rfx). Performed at: [address] [id number] Hauling Contractor: Amauri Butt PhD, Phone: [phone] Performed By: #### L 500.3400, M100.651, L501.5200, L3100.0300, L3890.6202, L3890.6006, BTSPAT, L3890.6301, L501.9985 ####[facility] [address] [facility] [place], [address] MRSA/SAID NASAL SCREENon MRSA+SAID SCRN Reason for Exam: Claudia kareem MRSA MRSA Negative S. AUREUS S. aureus Negative Normal [facility] Comment on above: Performed By: #### L 500.3400, M100.651, L501.5200, L3100.0300, L3890.6202, L3890.6006, BTSPAT, L3890.6301, L501.9985 ####[facility] [address] [facility] [place], [address] Bilirubin directOrdered By: Johann Andrews on 05-17-2025 Bilirubin.direct [Mass/Vol] 0.18 mg/dL 0.00-0.30 [facility] Bilirubin, totalOrdered By: Johann Andrews on 05-17-2025 Bilirubin [Mass/Vol] 0.42 mg/dL 0.00-1.30 [facility] HIVon 05-17-2025 HIV Non-Reactive Normal Nonreactive [facility] Comment on above: Result Comment: Non- Reactive Reactive Repeatedly reactive samples must be confirmed according to CDC recommended confirmatory algorithms. The subresults for either HIVAG or AHIV can be used as an aid in the selection of the confirmation algorithm for reactive samples. Send out specimens with Reactive results to [facility] for confirmation. Order the HIV antibody detection and differentiation: #[id number] Performed By: #### L 500.3400, M100.651, L501.5200, L3100.0300, L3890.6202, L3890.6006, BTSPAT, L3890.6301, L501.9985 ####[facility] [address] [place], [address] Hemoglobin A1con 05-17-2025 HbA1c (Bld) [Mass fraction] 5.9 % High <=5.6 [facility] Comment on above: Result Comment: Norm al < 5.7 % Prediabetic 5.7 - 6.4 % Diabetic >or= 6.5 % Please note range changes. Performed By: #### L 500.3400, M100.651, L501.5200, L3100.0300, L3890.6202, L3890.6006, BTSPAT, L3890.6301, L501.9985 #### [facility] [address] [place], [place], [id number] Hemoglobin A1c percentageOrd ered By: Johann Andrews on 05-17-2025 HbA1c (Bld) [Mass fraction] 5.9 % High <5.7 [facility] Comment on above: Normal < 5.7 % Predi abetic 5.7 - 6.4 % Diabetic >or= 6.5 % Please note range changes. Hepatitis B Surface Antibody on 05-17-2025 HEP B Surf Ab Non-Reactive Normal [facility] Comment on above: Result Comment: <8.5 mIU/mL: Non-Reactive 8.5<= x <11.5 mIU/mL: Indeterminate >=11.5 mIU/mL: Reactive Non Reactive: Inconsistent with immunity less than <10 mIU/mL Reactive: Consistent with immunity greater than or equal to 10 mIU/mL Performed By: #### L 500.3400, M100.651, L501.5200, L3100.0300, L3890.6202, L3890.6006, BTSPAT, L3890.6301, L501.9985 #### [facility] [address] [place], [place], [address] Hepatitis C Antibodyon 05-17 Hepatitis C Ab Non-Reactive Normal Nonreactive [facility] Comment on above: Result Comment: Reac tive: Presumptive evidence of antibodies to HCV. Follow CDC recommendations for supplemental testing. Non-Reactive: Antibodies to HCV were not detected; does not exclude the possibility of exposure to HCV Reactive Results are presumptive evidence of antibodies to HCV. Follow CDC recommendations for supplemental testing. Order confirmation testing: HCV Quant by PCR testing - HCVPCR #[id number] Non Reactive: < 0.8 Equivocal: >/= 0.8 to < 1.0 Reactive: >/= 1.0 The [facility] requires that a reactive/equivocal HCV antibody result be sent out for confirmation. HCV Quant by PCR testing. Performed By: #### L 500.3400, M100.651, L501.5200, L3100.0300, L3890.6202, L3890.6006, BTSPAT, L3890.6301, L501.9985 ####[facility] [address] [facility] [place], [place], [id number] Laboratory - Chemistry and C hemistry - challengeOrdered By: Johann Andrews on 05-17-2025 AST [Catalytic activity/Vol] 29 U/L <38 [facility] Liver Profileon 05-17-2025 Albumin [Mass/Vol] 4.2 g/dL Normal 3.4-4.8 [facility] Comment on above: Performed By: #### L 500.3400, M100.651, L501.5200, L3100.0300, L3890.6202, L3890.6006, BTSPAT, L3890.6301, L501.9985 #### [facility] [address] [facility] [place], [place], [id number] ALK PHOS 86 U/L Normal 40-129 [facility] Comment on above: Performed By: #### L 500.3400, M100.651, L501.5200, L3100.0300, L3890.6202, L3890.6006, BTSPAT, L3890.6301, L501.9985 #### [facility] [address] [place], [address] ALT [Catalytic activity/Vol] 28 U/L Normal <=46 [facility] Comment on above: Performed By: #### L 500.3400, M100.651, L501.5200, L3100.0300, L3890.6202, L3890.6006, BTSPAT, L3890.6301, L501.9985 #### [facility] [address] [place], [address] AST [Catalytic activity/Vol] 29 U/L Normal <=37 [facility] Comment on above: Performed By: #### L 500.3400, M100.651, L501.5200, L3100.0300, L3890.6202, L3890.6006, BTSPAT, L3890.6301, L501.9985 #### [facility] [address] [place], [address] Bilirubin [Mass/Vol] 0.42 mg/dL Normal 0.00-1.30 [facility] Comment on above: Performed By: #### L 500.3400, M100.651, L501.5200, L3100.0300, L3890.6202, L3890.6006, BTSPAT, L3890.6301, L501.9985 #### [facility] [address] [place], [address] Bilirubin.direct [Mass/Vol] 0.18 mg/dL Normal 0.00-0.30 [facility] Comment on above: Performed By: #### L 500.3400, M100.651, L501.5200, L3100.0300, L3890.6202, L3890.6006, BTSPAT, L3890.6301, L501.9985 #### [facility] [address] [place], [address] Globulin (S) [Mass/Vol] 2.8 g/dL Normal 2.2-4.2 [facility] Comment on above: Performed By: #### L 500.3400, M100.651, L501.5200, L3100.0300, L3890.6202, L3890.6006, BTSPAT, L3890.6301, L501.9985 #### [facility] [address] [place], [address] T PROT 7.0 g/dL Normal 5.9-8.4 [facility] Comment on above: Performed By: #### L 500.3400, M100.651, L501.5200, L3100.0300, L3890.6202, L3890.6006, BTSPAT, L3890.6301, L501.9985 #### [facility] [address] [place], [address] MRSA screenOrdered By: Sofía Andrews on 05-17-2025 MRSA DNA KATIE+probe Ql (Unsp spec) [facility] Magnesiumon 05-17-2025 Magnesium [Mass/Vol] 2.2 mg/dL Normal 1.5-2.2 [facility] Comment on above: Performed By: #### L 500.3400, M100.651, L501.5200, L3100.0300, L3890.6202, L3890.6006, BTSPAT, L3890.6301, L501.9985 ####[facility] [address] [place], [place], [id number] Magnesium measurement (mass/ volume)Ordered By: Johann Andrews on 05-17-2025 Magnesium (Unsp spec) [Mass/Vol] 2.2 mg/dL 1.5-2.2 [facility] No Panel InformationOrdered By: Johann Andrews on 05-17-2025 HIV (1&2) Antibody Non-Reactive Nonreactive [facility] Comment on above: Non-ReactiveReactive Repeatedly reactive samples must be confirmed according to CDC recommended confirmatory algorithms. The subresults for either HIVAG or AHIV can be used as an aid in the selection of the confirmation algorithm for reactive samples.Send out specimens with Reactive results to [facility] for confirmation.Order the HIV antibody detection and differentiation: #[id number] Serum globulin measurementOr dered By: Johann Andrews on 05-17-2025 Globulin (S) [Mass/Vol] 2.8 g/dL 2.2-4.2 [facility] Serum hepatitis B virus surf sudha antibody detectionOrdered By: Johann Andrews on 05-17-2025 HBV surface Ab Ql (S) Non-Reactive [facility] Comment on above: <8.5 mIU/mL: Non-Clubb ctive8.5<= x <11.5 mIU/mL: Indeterminate>=11.5 mIU/mL: Reactive Non Reactive: Inconsistent with immunity less than <10 mIU/mL Reactive: Consistent with immunity greater than or equal to 10 mIU/mL Serum or plasma alanine lim otransferase (ALT) measurementOrdered By: Johann Andrews on 05-17-2025 ALT [Catalytic activity/Vol] 28 U/L <47 [facility] Serum or plasma albumin annette urement (mass/volume)Ordered By: Johann Andrews on 05-17-2025 Albumin [Mass/Vol] 4.2 g/dL 3.4-4.8 [facility] Serum or plasma alkaline ha sphatase measurementOrdered By: Johann Andrews on 05-17-2025 ALP [Catalytic activity/Vol] 86 U/L 40-129 [facility] Total proteinOrdered By: Eduardo Andrews on 05-17-2025 Protein [Mass/Vol] 7.0 g/dL 5.9-8.4 [facility] Type AND Screen - PAT ONLYon 05-17-2025 ABO and Rh group Nom (Bld) Blood group B Rh(D) negative Normal [facility] Comment on above: Order Comment: Surge ry Date: 05/23/25Reason for Laboratory Test [id number]/ANNSLUMBAR FUSION Performed By: #### L 500.3400, M100.651, L501.5200, L3100.0300, L3890.6202, L3890.6006, BTSPAT, L3890.6301, L501.9985 ####[facility] [address] [place], [address] MR/PAT.NILOon 05-16-2025 MR/PAT.[facility] Medical Records Department [address] [place] [address] PAT - Anesthesia 05/16/25 1343 MR#: [id number] Acct: [id number] Name: MOO HOROWITZ Rep #: [id number] : 1945 80 From: Kulwinder العراقي MD PCP: Dr. Paul Mac MD Status:PRE IN Y Race: C Location: [facility] Pre-Assessment Diagnosis/Proposed Procedure Planned Operative Procedure(s): ERAS, 360 Lumbar Fusion L4-5 Anesthesia History Anesthesia History - director public policy: Anesthesia History - director public policy Hx Hospitalization No 05/16/25 10:40 Any Problems [...] take am of surgery PONV PONV - director public policy: PONV - director public policy Female No 05/16/25 10:40 HX of Motion [...] 04/17/25 13:16 Respiratory Assessment Respiratory Assessment - director public policy: Respiratory Tract Infection Hx - director public policy Hx Respiratory Tract Infection No 05/16/25 10:40 STOP Sleep Apnea STOP Sleep Apnea - director public policy: STOP Sleep Apnea - director public policy Hx Hypertension Yes: PER PT, CONTROLLED ON [...] Tobacco Use History Tobacco Use History - director public policy: Tobacco Use History - director public policy Tobacco Use Smoking Status Never smoker 05/16/25 10:40 Hx Tobacco Use No 05/16/25 10:40 Years Smoking Packs Smoked per Day Smoking Cessation Date was within the last 15 years Hx Smoking Cessation Date Hx Smoking Cessation Counseling Hematologic Medial History Hematologic Hx - director public policy: Hematologic Medical Hx - clinical documentation specialist Hx of Blood Transfusion No 05/16/25 10:40 Hx of Transfusion in last 3 No 05/16/25 10:40 Months Date of Last Transfusion (if within last 3 months) Ever experience any problems No 05/16/25 10:40 with transfusion(s)? Specify any problems Hx of Preganancy in last 3 N/A 05/16/25 10:40 Months Nurse Filling Out Transfusion MGRIFFITH 05/16/25 10:40 Questions: Date: 05/16/25 05/16/25 10:40 Time: 10:42 05/16/25 10:40 Patient unable to answer at this time (ie. confused, unrespo /Reproduction History /Reproductive History - director public policy: /Reproductive Hx- director public policy Hx Now No 05/16/25 10:40 Gestational Age (in weeks): EDC: Hx Hx Para Hx Section SAB No 05/16/25 10:40 [facility] Medical History (Updated 05/16/25 @ 10:53 by [...] (more content not included)... Normal [facility] Orthopedic Visit Reporton Orthopedic Visit Report [facility] [address] [place] [address] OFFICE VISIT Date of Service: 05/12/25 MR#: [id number] Acct: [id number] Name: MOO HOROWITZ Rep #: [id number] : 1945 Provider: Dr. Johann Andrews MD Age/Sex: 80/M Location: [facility] Status: Signed Intake Vital Signs 04/17/25 13:16 [...] you fallen in the past year?: Yes PFSH Medical History Wears glasses Excessive bleeding [...] by me, Dr. Johann Andrews MD 05/12/25 1345. Part of today???s visit was documented by [...] He is on Eliquis, prescribed by a medical instrument technician, and has a pacemaker placed about ten [...] (more content not included)... Normal [facility] Absolute lymphocyte countOrd ered By: Paul Mac on 05-11-2025 Lymphocytes Auto (Unsp spec) [#/Vol] 1.46 10*3/uL 0.83-4.51 [facility] Absolute neutrophil countOrd ered By: Paul Mac on 05-11-2025 Neutrophils (Bld) [#/Vol] 5.1 10*3/uL 2.0-7.7 [facility] Anion gap in Serum or Plasma Ordered By: Paul Mac on 05-11-2025 Anion gap [Moles/Vol] 10 mmol/L 5-15 [facility] Automated lymphocyte count a s percentage of total leukocytesOrdered By: Paul Mac on 05-11-2025 Lymphocytes/100 WBC Auto (Unsp spec) 18.8 % Low 19-41 [facility] BUN/creatinine ratioOrdered By: Paul Mac on 05-11-2025 Urea nitrogen/Creatinine [Mass ratio] 22.8 mg/mg High 10-20 [facility] Basic Metabolic Profile (BMP )on 05-11-2025 BUN/CRE 22.8 RATIO High 10-20 [facility] Comment on above: Performed By: #### L 500.2500, L100.0100 ####[facility] [address] [place], [address] Calcium [Mass/Vol] 9.5 mg/dL Normal 7.6-11.0 [facility] Comment on above: Performed By: #### L 500.2500, L100.0100 ####[facility] [address] [place], [address] Chloride [Moles/Vol] 104 mmol/L Normal 98-108 [facility] Comment on above: Performed By: #### L 500.2500, L100.0100 ####[facility] [address] [place], [address] CO2 [Moles/Vol] 25.6 mmol/L Normal 21.0-32.0 [facility] Comment on above: Performed By: #### L 500.2500, L100.0100 ####[facility] [address] [place], [address] Creatinine [Mass/Vol] 1.16 mg/dL Normal 0.70-1.20 [facility] Comment on above: Performed By: #### L 500.2500, L100.0100 ####[facility] [address] [place], [address] GAP 10 Normal 5-15 [facility] Comment on above: Performed By: #### L 500.2500, L100.0100 ####[facility] [address] [place], [address] GFR/1.73 sq M.predicted among non-blacks MDRD (S/P/Bld) [Vol rate/Area] 64 mL/min/{1.73_m2} Normal >60 [facility] Comment on above: Result Comment: mL/m in/1.73m2 CKD-EPI Creatinine Equation (2020) Performed By: #### L 500.2500, L100.0100 ####[facility] [address] [place], [address] Glucose [Mass/Vol] 83 mg/dL Normal 70-99 [facility] Comment on above: Performed By: #### L 500.2500, L100.0100 ####[facility] [address] [place], [address] Potassium [Moles/Vol] 5.1 mmol/L Normal 3.3-5.1 [facility] Comment on above: Performed By: #### L 500.2500, L100.0100 ####[facility] [address] [place], [address] Sodium [Moles/Vol] 139 mmol/L Normal 133-145 [facility] Comment on above: Performed By: #### L 500.2500, L100.0100 ####[facility] [address] [place], [address] Urea nitrogen [Mass/Vol] 27 mg/dL High 4-19 [facility] Comment on above: Performed By: #### L 500.2500, L100.0100 ####[facility] [address] [place], [address] Basophil percentageOrdered B y: Paul Mac on 05-11-2025 Basophils/100 WBC (Bld) 0.6 % 0-1 [facility] CBC W/Diff, Automatedon 04-15 Absolute Lymph 1.46 X10 3/uL Normal 0.83-4.51 [facility] Comment on above: Performed By: #### L 500.2500, L100.0100 ####[facility] [address] [place], [address] Absolute Neut 5.1 X10 3/uL Normal 2.0-7.7 [facility] Comment on above: Performed By: #### L 500.2500, L100.0100 ####[facility] [address] [place], [address] Basophils/100 WBC (Bld) 0.6 % Normal 0-1 [facility] Comment on above: Performed By: #### L 500.2500, L100.0100 ####[facility] [address] [place], [address] Eosinophils/100 WBC (Bld) 2.2 % Normal 0-5 [facility] Comment on above: Performed By: #### L 500.2500, L100.0100 ####[facility] [address] [place], [address] Erythrocyte distribution width (RBC) [Ratio] 13.5 % Normal 11.6-14.6 [facility] Comment on above: Performed By: #### L 500.2500, L100.0100 ####[facility] [address] [place], [address] Hematocrit (Bld) [Volume fraction] 40.2 % Normal 40-54 [facility] Comment on above: Performed By: #### L 500.2500, L100.0100 ####[facility] [address] [place], [address] Hemoglobin (Bld) [Mass/Vol] 13.0 g/dL Normal 13.0-16.5 [facility] Comment on above: Performed By: #### L 500.2500, L100.0100 ####[facility] [address] [place], [address] IG% 0.500 Normal 0.0-0.9 [facility] Comment on above: Result Comment: IG% - Immature Granulocytes (promyelocytes, myelocytes and metamyelocytes) > 1% indicates that a LEFT SHIFT is Present. Performed By: #### L 500.2500, L100.0100 ####[facility] [address] [place], [address] Lymphocytes/100 WBC (Bld) 18.8 % Low 19-41 [facility] Comment on above: Performed By: #### L 500.2500, L100.0100 ####[facility] [address] [place], [address] MCH (RBC) [Entitic mass] 31.6 pg Normal 27.0-32.0 [facility] Comment on above: Performed By: #### L 500.2500, L100.0100 ####[facility] [address] [place], [address] MCHC (RBC) [Mass/Vol] 32.3 g/dL Normal 32-36 [facility] Comment on above: Performed By: #### L 500.2500, L100.0100 ####[facility] [address] [place], [address] MCV (RBC) [Entitic vol] 97.6 fL High 80-94 [facility] Comment on above: Performed By: #### L 500.2500, L100.0100 ####[facility] [address] [place], [address] Monocytes/100 WBC (Bld) 11.8 % High 0-10 [facility] Comment on above: Performed By: #### L 500.2500, L100.0100 ####[facility] [address] [place], [address] Neutrophils/100 WBC (Bld) 66.1 % Normal 47-70 [facility] Comment on above: Performed By: #### L 500.2500, L100.0100 ####[facility] [address] [place], [address] Nucleated RBC (Bld) [#/Vol] 0 10*3/uL Normal 0-5 [facility] Comment on above: Performed By: #### L 500.2500, L100.0100 ####[facility] [address] [place], [address] Platelet mean volume (Bld) [Entitic vol] 11.4 fL Normal 6.2-12.0 [facility] Comment on above: Performed By: #### L 500.2500, L100.0100 ####[facility] [address] [place], [address] Platelets (Bld) [#/Vol] 217 10*3/uL Normal 150-450 [facility] Comment on above: Performed By: #### L 500.2500, L100.0100 ####[facility] [address] [place], [address] RBC (Bld) [#/Vol] 4.12 10*6/uL Low 4.6-6.2 [facility] Comment on above: Performed By: #### L 500.2500, L100.0100 ####[facility] [address] [place], [address] RDW SD 48.8 fl High 35.1-43.9 [facility] Comment on above: Performed By: #### L 500.2500, L100.0100 ####[facility] [address] [place], [address] WBC (Bld) [#/Vol] 7.8 10*3/uL Normal 4.4-11.0 [facility] Comment on above: Performed By: #### L 500.2500, L100.0100 ####[facility] [address] [place], [address] Carbon dioxide, total [Moles /volume] in Central venous bloodOrdered By: Paul Mac on 05-11-2025 CO2 [Moles/Vol] 25.6 mmol/L 21.0-32.0 [facility] Chloride assayOrdered By: Erica Mac on 05-11-2025 Chloride [Moles/Vol] 104 mmol/L 98-108 [facility] Eosinophil percentageOrdered By: Paul Mac on 05-11-2025 Eosinophils/100 WBC (Bld) 2.2 % 0-5 [facility] Erythrocyte distribution wid th ratioOrdered By: Paul Mac on 05-11-2025 Erythrocyte distribution width (RBC) [Ratio] 13.5 % 11.6-14.6 [facility] Erythrocyte distribution wid th standard deviationOrdered By: Paul Mac on 05-11-2025 Erythrocyte distribution width (RBC) [Ratio] 48.8 fl High 35.1-43.9 [facility] Glomerular filtration rate ( GFR) estimation/1.73 sq m using serum, plasma, or whole bOrdered By: Paul Mac on 05-11-2025 GFR/1.73 sq M.predicted among non-blacks MDRD (S/P/Bld) [Vol rate/Area] 64 mL/min/{1.73_m2} >60 [facility] Comment on above: mL/min/1.73m2 CKD-EP I Creatinine Equation (2020) Hematocrit Auto (Bld) [Volum e fraction]Ordered By: Paul Mac on 05-11-2025 Hematocrit (Bld) [Volume fraction] 40.2 % 40-54 [facility] Hemoglobin measurementOrdere d By: Paul Mac on 05-11-2025 Hemoglobin (Bld) [Mass/Vol] 13.0 g/dL 13.0-16.5 [facility] Immature granulocytes/100 WB C Auto (Bld)Ordered By: Paul Mac on 05-11-2025 Immature granulocytes/100 WBC (Bld) 0.500 % 0.0-0.9 [facility] Comment on above: IG% - Immature Granu locytes (promyelocytes, myelocytes and metamyelocytes) > 1% indicates that a LEFT SHIFT is Present. MCV (mean corpuscular volume ) determinationOrdered By: Paul Mac on 05-11-2025 MCV (RBC) [Entitic vol] 97.6 fL High 80-94 [facility] Mean corpuscular hemoglobin (MCH) determinationOrdered By: Paul Mac on 05-11-2025 MCH (RBC) [Entitic mass] 31.6 pg 27.0-32.0 [facility] Mean corpuscular hemoglobin concentration (MCHC) determinationOrdered By: Paul Mac on 05-11-2025 MCHC (RBC) [Mass/Vol] 32.3 g/dL 32-36 [facility] Mean platelet volume determi nationOrdered By: Paul Mac on 05-11-2025 Platelet mean volume (Bld) [Entitic vol] 11.4 fL 6.2-12.0 [facility] Monocyte percentageOrdered B y: Paul Mac on 05-11-2025 Monocytes/100 WBC (Bld) 11.8 % High 0-10 [facility] Neutrophil percentageOrdered By: Paul Mac on 05-11-2025 Neutrophils/100 WBC (Bld) 66.1 % 47-70 [facility] Nucleated red blood cell per centageOrdered By: Paul Mac on 05-11-2025 Nucleated RBC/100 WBC (Bld) [Ratio] 0 % 0-5 [facility] Platelet countOrdered By: Erica Mac on 05-11-2025 Platelets (Bld) [#/Vol] 217 10*3/uL 150-450 [facility] Potassium measurement (mass/ volume)Ordered By: Paul Mac on 05-11-2025 Potassium (Unsp spec) [Mass/Vol] 5.1 mmol/L 3.3-5.1 [facility] RBC Auto (Bld) [#/Vol]Ordere d By: Paul Mac on 05-11-2025 RBC (Bld) [#/Vol] 4.12 10*6/uL Low 4.6-6.2 [facility] Serum creatinine measurement (mass/volume)Ordered By: Paul Mac on 05-11-2025 Creatinine [Mass/Vol] 1.16 mg/dL 0.70-1.20 [facility] Serum glucose measurement (m ass/volume)Ordered By: Paul Mac on 05-11-2025 Glucose [Mass/Vol] 83 mg/dL 70-99 [facility] Serum or plasma calcium annette urement (mass/volume)Ordered By: Paul Mac on 05-11-2025 Calcium [Mass/Vol] 9.5 mg/dL 7.6-11.0 [facility] Serum or plasma urea nitroge n measurement (mass/volume)Ordered By: Paul Mac on 05-11-2025 Urea nitrogen [Mass/Vol] 27 mg/dL High 4-19 [facility] Sodium levelOrdered By: Paul Mac on 05-11-2025 Sodium [Moles/Vol] 139 mmol/L 133-145 [facility] White blood cell (WBC) count Ordered By: Paul Mac on 05-11-2025 WBC (Bld) [#/Vol] 7.8 10*3/uL 4.4-11.0 [facility] Cardiology Visit Reporton Cardiology Visit Report [facility] [address] [place] [address] OFFICE VISIT Date of Service: 05/10/25 MR#: [id number] Acct: [id number] Name: MOO HOROWITZ Rep #: [id number] : 1945 Provider: HONEY gross Age/Sex: 80/M Location: [facility] Status: Signed HPI HPI History of [...] pacemaker is a BiV pacer implanted in [place] while he was visiting out there in June 2015. This is managed through the [place] [facility] device [facility]. The patient carries [...] Visit Reasons: Surgical Clearance/Sees Estefanía @ [employer] Required: No Accompanied by: Self Is patient in pain?: No Allergies diltiazem Adverse Reaction (Intermediate, Verified 05/10/25 15:32) Facial flushing and fatigue carvedilol (From Coreg) Adverse Reaction (Verified 05/10/25 15:32) face tingling Medications ???Medication ???Instructions ???Recorded ???Confirmed ???Type alprazolam 0.5 mg tablet 0.5 mg PO QHS anxiety 12/06/ History acetaminophen 500 mg tablet 1,000 mg [...] pain- just causes him to go down) [facility] Medical History Wears glasses Excessive bleeding Arthritis [...] (more content not included)... Normal [facility] Pacemaker Checkon 05-10-2025 Pacemaker Check [facility] [address] [place] [address]. 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 (2) Left bundle branch block (LBBB): Status: Chronic (3) Mobitz type II atrioventricular block: Status: Chronic (4) Atrial flutter: Status: Chronic Qualifiers: Atrial flutter type: unspecified Qualified Code(s): I48.92 - Unspecified atrial flutter 05/10/251643 Date Sharon Gunn Cosigner Signature: Date (if applicable) CC: Normal [facility] Orthopedic Visit Reporton Orthopedic Visit Report [facility] [address] [place] [address] OFFICE VISIT Date of Service: 04/17/25 MR#: [id number] Acct: [id number] Name: MOO HOROWITZ Rep #: [id number] : 1945 Provider: ERICA Carvalho Age/Sex: 80/M Location: [facility] Status: Signed Intake Vital Signs 01/18/25 10:58 [...] disc today with imaging on it from [facility]. Denies numbness, tingling or other associated symptoms. He states that the left leg kind of feels heavy compared to the right side. (more content not included)... Normal [facility] Activated partial thrombopla stin time (aPTT) in platelet poor plasma by coagulation aOrdered By: Ivy Kern on 04-12-2025 aPTT Coag (PPP) [Time] 25.1 s 24.1-36.2 [facility] CBC-Complete Blood Cnt No Di ffon 04-12-2025 Erythrocyte distribution width (RBC) [Ratio] 13.4 % Normal 11.6-14.6 [facility] Comment on above: Performed By: #### L 300.4310, L100.0500, L300.3900 ####[facility] [address] [place], [address] Hematocrit (Bld) [Volume fraction] 41.9 % Normal 40-54 [facility] Comment on above: Performed By: #### L 300.4310, L100.0500, L300.3900 ####[facility] [address] [place], [address] Hemoglobin (Bld) [Mass/Vol] 13.6 g/dL Normal 13.0-16.5 [facility] Comment on above: Performed By: #### L 300.4310, L100.0500, L300.3900 ####[facility] [address] [place], [address] MCH (RBC) [Entitic mass] 31.9 pg Normal 27.0-32.0 [facility] Comment on above: Performed By: #### L 300.4310, L100.0500, L300.3900 ####[facility] [address] [place], [address] MCHC (RBC) [Mass/Vol] 32.5 g/dL Normal 32-36 [facility] Comment on above: Performed By: #### L 300.4310, L100.0500, L300.3900 ####[facility] [address] [place], [address] MCV (RBC) [Entitic vol] 98.1 fL High 80-94 [facility] Comment on above: Performed By: #### L 300.4310, L100.0500, L300.3900 ####[facility] [address] [place], [address] Platelet mean volume (Bld) [Entitic vol] 10.8 fL Normal 6.2-12.0 [facility] Comment on above: Performed By: #### L 300.4310, L100.0500, L300.3900 ####[facility] [address] [place], [address] Platelets (Bld) [#/Vol] 224 10*3/uL Normal 150-450 [facility] Comment on above: Performed By: #### L 300.4310, L100.0500, L300.3900 ####[facility] [address] [place], [address] RBC (Bld) [#/Vol] 4.27 10*6/uL Low 4.6-6.2 [facility] Comment on above: Performed By: #### L 300.4310, L100.0500, L300.3900 ####[facility] [address] [place], [address] RDW SD 48.6 fl High 35.1-43.9 [facility] Comment on above: Performed By: #### L 300.4310, L100.0500, L300.3900 ####[facility] [address] [place], [address] WBC (Bld) [#/Vol] 6.4 10*3/uL Normal 4.4-11.0 [facility] Comment on above: Performed By: #### L 300.4310, L100.0500, L300.3900 ####[facility] [address] [place], [address] Erythrocyte distribution wid th ratioOrdered By: [place] Con[place] on 04-12-2025 Erythrocyte distribution width (RBC) [Ratio] 13.4 % 11.6-14.6 [facility] Erythrocyte distribution wid th standard deviationOrdered By: [place] on 04-12-2025 Erythrocyte distribution width (RBC) [Ratio] 48.6 fl High 35.1-43.9 [facility] Hematocrit Auto (Bld) [Volum e fraction]Ordered By: [facility] on 04-12-2025 Hematocrit (Bld) [Volume fraction] 41.9 % 40-54 [facility] Hemoglobin measurementOrdere d By: [facility] on 04-12-2025 Hemoglobin (Bld) [Mass/Vol] 13.6 g/dL 13.0-16.5 [facility] International normalized rat io (INR) calculationOrdered By: [facility] on 04-12-2025 INR Coag (Bld) [Relative time] 1.0 {INR} [facility] Lumbar Myelogramon Lumbar Myelogram [facility] [address] [place], [place] [address] Lumbar Myelogram MR#: [id number] Acct: [id number] Name: MOO HOROWITZ Rep #: [id number] : 1945 M 80 From: Jose Galvin PCP: Dr. Paul Mac MD Status: REG CLI Study: Lumbar Myelogram Date of Exam: 04/12/25 Exam# [id number] Ordering Dr: Shalom Barraza MD PROCEDURE: LUMBAR [...] narrowing of the L3-L4 level. Reading Location: [place] [address] CC: Dr. Paul Mac MD; Dr. Shalom Barraza MD Rental Counter Clerk: Signed Normal [facility] MCV (mean corpuscular volume ) determinationOrdered By: Ivy Kern on 04-12-2025 MCV (RBC) [Entitic vol] 98.1 fL High 80-94 [facility] Mean corpuscular hemoglobin (MCH) determinationOrdered By: Ivyjustin Kern on 04-12-2025 MCH (RBC) [Entitic mass] 31.9 pg 27.0-32.0 [facility] Mean corpuscular hemoglobin concentration (MCHC) determinationOrdered By: Ivyjustin Kern on 04-12-2025 MCHC (RBC) [Mass/Vol] 32.5 g/dL 32-36 [facility] Mean platelet volume determi nationOrdered By: Ivy Kern on 04-12-2025 Platelet mean volume (Bld) [Entitic vol] 10.8 fL 6.2-12.0 [facility] Partial Thromboplast Timeon 04-12-2025 aPTT Coag (Bld) [Time] 25.1 s Normal 24.1-36.2 [facility] Comment on above: Performed By: #### L 300.4310, L100.0500, L300.3900 ####[facility] [address] [place], [place], [address] Platelet countOrdered By: Herrera Kern on 07-30-2025 Platelets (Bld) [#/Vol] 224 10*3/uL 150-450 [facility] Prothrombin Time w/INRon INR Coag (PPP) [Relative time] 1.0 {INR} Normal [facility] Comment on above: Performed By: #### L 300.4310, L100.0500, L300.3900 ####[facility] [address] [place], [address] PT Coag (PPP) [Time] 12.9 s Normal 11.7-14.9 [facility] Comment on above: Performed By: #### L 300.4310, L100.0500, L300.3900 ####[facility] [address] [place], [address] Prothrombin timeOrdered By: Ivy Kern on 04-12-2025 PT Coag (PPP) [Time] 12.9 s 11.7-14.9 [facility] RBC Auto (Bld) [#/Vol]Ordere d By: Ivy Kern on 04-12-2025 RBC (Bld) [#/Vol] 4.27 10*6/uL Low 4.6-6.2 [facility] Spine Lumbar WITH Contraston 04-12-2025 Spine Lumbar WITH Contrast [facility] [address] [place] [address] Spine Lumbar WITH Contrast MR#: [id number] Acct: [id number] Name: MOO HOROWITZ Rep #: [id number] : 1945 M 80 From: Ash Sanders MD PCP: Dr. Paul Mac MD Status: REG CLI Study: Spine Lumbar WITH Contrast Date of Exam: 04/12 Exam# [id number] Ordering Dr: Shalom Barraza MD PROCEDURE: SPINE [...] exit foraminal narrowing on the right. L3-4: Uejv-bd-bsnlnqbw loss of disc height. Vacuum disc phenomenon. Diffuse disc bulge. Borderline central stenosis at 10 mm AP. Minimal facet hypertrophy. Dqvpo-afaiyor-zwjr-left exit foraminal narrowing. Correlate with L3 radiculopathy. [...] stenosis. Mild facet hypertrophy. Exit foraminal narrowing, tkzn-pxqxkzr-rvwi-right. Correlate with L5 radiculopathy. Sacrum: Mild degenerative changes of the SI joints. No fracture. CT/Spine Lumbar WITH Contrast IMPRESSION: 1. Multilevel degenerative disc disease outlined above. Postsurgical change L4/5. This region is associated with central stenosis. See above description. 2. Straightening of the normal lumbar lordosis. 25% height loss from anterior wedging at T12 and L1. Reading Location: [id number] CC: Dr. Paul Mac MD; Dr. Shalom Barraza MD Rental Counter Clerk: Signed Normal [facility] White blood cell (WBC) count Ordered By: Ivy Kern on 04-12-2025 WBC (Bld) [#/Vol] 6.4 10*3/uL 4.4-11.0 [facility] Orthopedic Visit Reporton Orthopedic Visit Report [facility] [address] [place] [address] OFFICE VISIT Date of Service: 03/16/25 MR#: [id number] Acct: [id number] Name: MOO HOROWITZ Rep #: [id number] : 1945 Provider: ERICA Carvalho Age/Sex: 80/M Location: [facility] Status: Signed Intake Vital Signs 01/18/25 10:58 [...] mg tablet 0.5 mg PO QHS anxiety 12/06/12/06 History meloxicam 15 mg tablet 15 mg [...] you fallen in the past year?: Yes PFSH Medical History Wears glasses Excessive bleeding [...] the decisions made by me, ERICA Carvalho 03/16/25 1414. Part of today???s visit was documented by Kathy BRONSON, acting as scribe. MOO HOROWITZ is a [...] disc today with imaging on it from [facility]. Denies numbness, tingling or other associated symptoms. [...] injection 4-[address] Joceline wilcox (more content not included)... Normal [facility] Cardiology Visit Reporton Cardiology Visit Report [facility] [address] [place], [place] [address]. [address] [place] [address] OFFICE VISIT Date of Service: 01/18/25 MR#: [id number] Acct: [id number] Name: MOO HOROWITZ Rep #: [id number] : 1945 Provider: Dr. Driss valdes MD Age/Sex: 80/M Location: [facility] Status: Signed HPI HPI History of [...] pacemaker is a BiV pacer implanted in [place] while he was visiting out there in June 2015. This is managed through the [place] [facility] device [facility]. The patient carries [...] Visit Reasons: 6 M FU/ESTEFANÍA @ 10:30 [employer] Required: No Accompanied by: Self Is patient [...] (more content not included)... Normal [facility] Pacemaker Checkon 01-18-2025 Pacemaker Check [facility] 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 (3) Mobitz type II atrioventricular block: Status: Chronic (4) Left bundle branch block (LBBB): Status: Chronic 01/18/25 1700 Date Sharon Damonignamira Signature: Date (if applicable) CC: Normal [facility] Absolute lymphocyte countOrd ered By: Paul Mac on 12-12-2024 Lymphocytes Auto (Unsp spec) [#/Vol] 1.54 10*3/uL 0.83-4.51 [facility] Absolute neutrophil countOrd ered By: Paul Mac on 12-12-2024 Neutrophils (Bld) [#/Vol] 6.0 10*3/uL 2.0-7.7 [facility] Anion gap in Serum or Plasma Ordered By: Paul Mac on 12-12-2024 Anion gap [Moles/Vol] 13 mmol/L 5-15 [facility] Automated lymphocyte count a s percentage of total leukocytesOrdered By: Paul Mac on 12-12-2024 Lymphocytes/100 WBC Auto (Unsp spec) 18.5 % Low 19-41 [facility] BUN/creatinine ratioOrdered By: Paul Mac on 12-12-2024 Urea nitrogen/Creatinine [Mass ratio] 27.3 mg/mg High 10-20 [facility] Basophil percentageOrdered B y: Paul Mac on 12-12-2024 Basophils/100 WBC (Bld) 0.6 % 0-1 [facility] Bilirubin, totalOrdered By: Paul Mac on 12-12-2024 Bilirubin [Mass/Vol] 0.47 mg/dL 0.00-1.30 [facility] CBC W/Diff, Automatedon 11-14 Absolute Lymph 1.54 X10 3/uL Normal 0.83-4.51 [facility] Comment on above: Performed By: #### L 500.4100, L100.0100, L500.4050 ####[facility] [address] [place], [address] Absolute Neut 6.0 X10 3/uL Normal 2.0-7.7 [facility] Comment on above: Performed By: #### L 500.4100, L100.0100, L500.4050 ####[facility] [address] [place], [address] Basophils/100 WBC (Bld) 0.6 % Normal 0-1 [facility] Comment on above: Performed By: #### L 500.4100, L100.0100, L500.4050 ####[facility] [address] [place], [address] Eosinophils/100 WBC (Bld) 0.8 % Normal 0-5 [facility] Comment on above: Performed By: #### L 500.4100, L100.0100, L500.4050 ####[facility] [address] [place], [address] Erythrocyte distribution width (RBC) [Ratio] 13.8 % Normal 11.6-14.6 [facility] Comment on above: Performed By: #### L 500.4100, L100.0100, L500.4050 ####[facility] [address] [place], [address] Hematocrit (Bld) [Volume fraction] 38.0 % Low 40-54 [facility] Comment on above: Performed By: #### L 500.4100, L100.0100, L500.4050 ####[facility] [address] [place], [address] Hemoglobin (Bld) [Mass/Vol] 12.5 g/dL Low 13.0-16.5 [facility] Comment on above: Performed By: #### L 500.4100, L100.0100, L500.4050 ####[facility] [address] [place], [address] IG% 0.200 Normal 0.0-0.9 [facility] Comment on above: Result Comment: IG% - Immature Granulocytes (promyelocytes, myelocytes and metamyelocytes) > 1% indicates that a LEFT SHIFT is Present. Performed By: #### L 500.4100, L100.0100, L500.4050 ####[facility] [address] [place], [address] Lymphocytes/100 WBC (Bld) 18.5 % Low 19-41 [facility] Comment on above: Performed By: #### L 500.4100, L100.0100, L500.4050 ####[facility] [address] [place], [address] MCH (RBC) [Entitic mass] 31.3 pg Normal 27.0-32.0 [facility] Comment on above: Performed By: #### L 500.4100, L100.0100, L500.4050 ####[facility] [address] [place], [address] MCHC (RBC) [Mass/Vol] 32.9 g/dL Normal 32-36 [facility] Comment on above: Performed By: #### L 500.4100, L100.0100, L500.4050 ####[facility] [address] [place], [address] MCV (RBC) [Entitic vol] 95.0 fL High 80-94 [facility] Comment on above: Performed By: #### L 500.4100, L100.0100, L500.4050 ####[facility] [address] [place], [address] Monocytes/100 WBC (Bld) 8.4 % Normal 0-10 [facility] Comment on above: Performed By: #### L 500.4100, L100.0100, L500.4050 ####[facility] [address] [place], [address] Neutrophils/100 WBC (Bld) 71.5 % High 47-70 [facility] Comment on above: Performed By: #### L 500.4100, L100.0100, L500.4050 ####[facility] [address] [place], [address] Nucleated RBC (Bld) [#/Vol] 0 10*3/uL Normal 0-5 [facility] Comment on above: Performed By: #### L 500.4100, L100.0100, L500.4050 ####[facility] [address] [place], [address] Platelet mean volume (Bld) [Entitic vol] 11.4 fL Normal 6.2-12.0 [facility] Comment on above: Performed By: #### L 500.4100, L100.0100, L500.4050 ####[facility] [address] [place], [address] Platelets (Bld) [#/Vol] 175 10*3/uL Normal 150-450 [facility] Comment on above: Performed By: #### L 500.4100, L100.0100, L500.4050 ####[facility] [address] [place], [address] RBC (Bld) [#/Vol] 4.00 10*6/uL Low 4.6-6.2 [facility] Comment on above: Performed By: #### L 500.4100, L100.0100, L500.4050 ####[facility] [address] [place], [address] RDW SD 48.2 fl High 35.1-43.9 [facility] Comment on above: Performed By: #### L 500.4100, L100.0100, L500.4050 ####[facility] [address] [place], [address] WBC (Bld) [#/Vol] 8.3 10*3/uL Normal 4.4-11.0 [facility] Comment on above: Performed By: #### L 500.4100, L100.0100, L500.4050 ####[facility] [address] [place], [address] Calculated very low density lipoprotein (VLDL) cholesterol measurementOrdered By: Paul Mac on 12-12-2024 Calculated very low density lipoprotein (VLDL) cholesterol measurement 15 mg/dL 5-40 [facility] VLDL Cholesterol 15 mg/dL -40 [facility] Carbon dioxide, total [Moles /volume] in Central venous bloodOrdered By: Paul Mac on 12-12-2024 CO2 [Moles/Vol] 21.2 mmol/L 21.0-32.0 [facility] Chloride assayOrdered By: Erica Mac on 12-12-2024 Chloride [Moles/Vol] 105 mmol/L 98-108 [facility] Comprehensive Metabolic Prof ilon 12-12-2024 Albumin [Mass/Vol] 4.1 g/dL Normal 3.4-4.8 [facility] Comment on above: Performed By: #### L 500.4100, L100.0100, L500.4050 ####[facility] [address] [place], [address] Albumin/Globulin [Mass ratio] 1.5 {ratio} Normal 0.9-2.4 [facility] Comment on above: Performed By: #### L 500.4100, L100.0100, L500.4050 ####[facility] [address] [place], [address] ALK PHOS 79 U/L Normal 40-129 [facility] Comment on above: Performed By: #### L 500.4100, L100.0100, L500.4050 ####[facility] [address] [place], [address] ALT [Catalytic activity/Vol] 31 U/L Normal <=46 [facility] Comment on above: Performed By: #### L 500.4100, L100.0100, L500.4050 ####[facility] [address] [place], [address] AST [Catalytic activity/Vol] 37 U/L Normal <=37 [facility] Comment on above: Performed By: #### L 500.4100, L100.0100, L500.4050 ####[facility] [address] [place], [address] Bilirubin [Mass/Vol] 0.47 mg/dL Normal 0.00-1.30 [facility] Comment on above: Performed By: #### L 500.4100, L100.0100, L500.4050 ####[facility] [address] [place], [address] BUN/CRE 27.3 RATIO High 10-20 [facility] Comment on above: Performed By: #### L 500.4100, L100.0100, L500.4050 ####[facility] [address] [place], [address] Calcium [Mass/Vol] 9.4 mg/dL Normal 7.6-11.0 [facility] Comment on above: Performed By: #### L 500.4100, L100.0100, L500.4050 ####[facility] [address] [place], [address] Chloride [Moles/Vol] 105 mmol/L Normal 98-108 [facility] Comment on above: Performed By: #### L 500.4100, L100.0100, L500.4050 ####[facility] [address] [place], [address] CO2 [Moles/Vol] 21.2 mmol/L Normal 21.0-32.0 [facility] Comment on above: Performed By: #### L 500.4100, L100.0100, L500.4050 ####[facility] [address] [place], [address] Creatinine [Mass/Vol] 1.15 mg/dL Normal 0.70-1.20 [facility] Comment on above: Performed By: #### L 500.4100, L100.0100, L500.4050 ####[facility] [address] [place], [address] GAP 13 Normal 5-15 [facility] Comment on above: Performed By: #### L 500.4100, L100.0100, L500.4050 ####[facility] [address] [place], [address] GFR/1.73 sq M.predicted among non-blacks MDRD (S/P/Bld) [Vol rate/Area] 65 mL/min/{1.73_m2} Normal >60 [facility] Comment on above: Result Comment: mL/m in/1.73m2 CKD-EPI Creatinine Equation (2020) Performed By: #### L 500.4100, L100.0100, L500.4050 ####[facility] [address] [place], [address] Globulin (S) [Mass/Vol] 2.8 g/dL Normal 2.2-4.2 [facility] Comment on above: Performed By: #### L 500.4100, L100.0100, L500.4050 ####[facility] [address] [place], [address] Glucose [Mass/Vol] 112 mg/dL High 70-99 [facility] Comment on above: Performed By: #### L 500.4100, L100.0100, L500.4050 ####[facility] [address] [place], [address] Potassium [Moles/Vol] 4.8 mmol/L Normal 3.3-5.1 [facility] Comment on above: Result Comment: Hemo lysis present, Results??could be affected. ?? Performed By: #### L 500.4100, L100.0100, L500.4050 ####[facility] [address] [place], [address] Sodium [Moles/Vol] 139 mmol/L Normal 133-145 [facility] Comment on above: Performed By: #### L 500.4100, L100.0100, L500.4050 ####[facility] [address] [place], [address] T PROT 6.9 g/dL Normal 5.9-8.4 [facility] Comment on above: Performed By: #### L 500.4100, L100.0100, L500.4050 ####[facility] [address] [place], [address] Urea nitrogen [Mass/Vol] 31 mg/dL High 4-19 [facility] Comment on above: Performed By: #### L 500.4100, L100.0100, L500.4050 ####[facility] [address] [place], [address] Eosinophil percentageOrdered By: Paul Mac on 12-12-2024 Eosinophils/100 WBC (Bld) 0.8 % 0-5 [facility] Erythrocyte distribution wid th (RBC) [Ratio]Ordered By: Paul Mac on 12-12-2024 Erythrocyte distribution width (RBC) [Entitic vol] 48.2 fL High 35.1-43.9 [facility] Erythrocyte distribution wid th ratioOrdered By: Paul Mac on 12-12-2024 Erythrocyte distribution width (RBC) [Ratio] 13.8 % 11.6-14.6 [facility] Erythrocyte distribution wid th standard deviationOrdered By: Paul Mac on 12-12-2024 Erythrocyte distribution width (RBC) [Ratio] 48.2 fl High 35.1-43.9 [facility] GFR/1.73 sq M.predicted justin g non-blacks MDRD (S/P/Bld) [Vol rate/Area]Ordered By: Paul Mac on 12-12-2024 Estimated GFR (MDRD) Non-Af Amer 65 >60 [facility] Comment on above: mL/min/1.73m2 CKD-EP I Creatinine Equation (2020) Glomerular filtration rate ( GFR) estimation/1.73 sq m using serum, plasma, or whole bOrdered By: Paul Mca on 12-12-2024 GFR/1.73 sq M.predicted among non-blacks MDRD (S/P/Bld) [Vol rate/Area] 65 mL/min/{1.73_m2} >60 [facility] Comment on above: mL/min/1.73m2 CKD-EP I Creatinine Equation (2020) Hematocrit Auto (Bld) [Volum e fraction]Ordered By: Paul Mac on 12-12-2024 Hematocrit (Bld) [Volume fraction] 38.0 % Low 40-54 [facility] Hemoglobin measurementOrdere d By: Paul Mac on 12-12-2024 Hemoglobin (Bld) [Mass/Vol] 12.5 g/dL Low 13.0-16.5 [facility] Immature granulocytes/100 WB C Auto (Bld)Ordered By: Paul Mac on 12-12-2024 Immature granulocytes/100 WBC (Bld) 0.200 % 0.0-0.9 [facility] Comment on above: IG% - Immature Granu locytes (promyelocytes, myelocytes and metamyelocytes) > 1% indicates that a LEFT SHIFT is Present. LDL calc ser/plasOrdered By: Paul Mac on 12-12-2024 Cholesterol in LDL [Mass/Vol] 73 mg/dL [facility] Comment on above: Azwpaaslhj=133-937 m g/dL & Higher Uyfo=566 mg/dL or greater LDL Cholesterol, Calculated 73 mg/dL [facility] Comment on above: Bpeivdrrwg=403-457 m g/dL & Higher Fzly=898 mg/dL or greater Laboratory - Chemistry and C hemistry - challengeOrdered By: Paul Mac on 12-12-2024 AST [Catalytic activity/Vol] 37 U/L <38 [facility] Lipid Profileon 12-12-2024 CHOL:HDL 2.42 Normal [facility] Comment on above: Performed By: #### L 500.4100, L100.0100, L500.4050 ####[facility] [address] [place], [place], [address] Cholesterol [Mass/Vol] 150 mg/dL Normal <=200 [facility] Comment on above: Result Comment: Chol esterol level, Desirable <200 mg/dL Borderline high cholesterol 200-239 mg/dL High cholesterol >=240 mg/dL Recommendations of the NCEP Adult Treatment Panel for the following risk-cutoff thresholds for the [place] population. Performed By: #### L 500.4100, L100.0100, L500.4050 ####[facility] [address] [place], [address] Cholesterol in HDL [Mass/Vol] 62 mg/dL Normal [facility] Comment on above: Result Comment: Katherin onal Cholesterol Education Program (NCEP) guidelines: <40 mg/dL: Low HDL-cholesterol (major risk factor for CHD) >= 60 mg/dL: High HDL-cholesterol (negative risk factor for CHD) HDL-cholesterol is affected by a number of factors, e.g. smoking, exercise, hormones, sex and age. Performed By: #### L 500.4100, L100.0100, L500.4050 ####[facility] [address] [place], [address] Cholesterol in LDL [Mass/Vol] 73 mg/dL Normal [facility] Comment on above: Result Comment: Bord nhooyy=646-275 mg/dL Higher Axpv=093 mg/dL or greater Performed By: #### L 500.4100, L100.0100, L500.4050 ####[facility] [address] [place], [address] Cholesterol in VLDL [Mass/Vol] 15 mg/dL Normal 5-40 [facility] Comment on above: Performed By: #### L 500.4100, L100.0100, L500.4050 ####[facility] [address] [place], [address] Triglyceride [Mass/Vol] 74 mg/dL Normal [facility] Comment on above: Result Comment: The drugs N-Acetylcysteine and Metamizole may falsely depress this assay. Normal range: <150 mg/dL Borderline High: 150-199 mg/dL High: 200-499 mg/dL Very High: >500 mg/dL Performed By: #### L 500.4100, L100.0100, L500.4050 ####[facility] [address] [place], [address] Lymphocytes Auto (Unsp spec) [#/Vol]Ordered By: Paul Mac on 12-12-2024 Lymphocytes (Bld) [#/Vol] 1.54 10*3/uL 0.83-4.51 [facility] Lymphocytes/100 WBC Auto (Un sp spec)Ordered By: Paul Mac on 12-12-2024 Lymphocytes/100 WBC (Bld) 18.5 % Low 19-41 [facility] MCV (mean corpuscular volume ) determinationOrdered By: Paul Mac on 12-12-2024 MCV (RBC) [Entitic vol] 95.0 fL High 80-94 [facility] Mean corpuscular hemoglobin (MCH) determinationOrdered By: Paul Mac on 12-12-2024 MCH (RBC) [Entitic mass] 31.3 pg 27.0-32.0 [facility] Mean corpuscular hemoglobin concentration (MCHC) determinationOrdered By: Paul Mac on 12-12-2024 MCHC (RBC) [Mass/Vol] 32.9 g/dL 32-36 [facility] Mean platelet volume determi nationOrdered By: Paul Mac on 12-12-2024 Platelet mean volume (Bld) [Entitic vol] 11.4 fL 6.2-12.0 [facility] Monocyte percentageOrdered B y: Paul Mac on 12-12-2024 Monocytes/100 WBC (Bld) 8.4 % 0-10 [facility] Neutrophil percentageOrdered By: Paul Mac on 12-12-2024 Neutrophils/100 WBC (Bld) 71.5 % High 47-70 [facility] Nucleated red blood cell per centageOrdered By: Paul Mac on 12-12-2024 Nucleated RBC/100 WBC (Bld) [Ratio] 0 % 0-5 [facility] Platelet countOrdered By: Erica Mac on 12-12-2024 Platelets (Bld) [#/Vol] 175 10*3/uL 150-450 [facility] Potassium (Unsp spec) [Mass/ Vol]Ordered By: Paul Mac on 12-12-2024 Potassium [Moles/Vol] 4.8 mmol/L 3.3-5.1 [facility] Comment on above: Hemolysis present, R esults could be affected. Potassium measurement (mass/ volume)Ordered By: Paul Mac on 12-12-2024 Potassium (Unsp spec) [Mass/Vol] 4.8 mmol/L 3.3-5.1 [facility] Comment on above: Hemolysis present, R esults could be affected. RBC Auto (Bld) [#/Vol]Ordere d By: Paul Mac on 12-12-2024 RBC (Bld) [#/Vol] 4.00 10*6/uL Low 4.6-6.2 [facility] Screening total cholesterol/ high density lipoprotein (HDL) cholesterol ratioOrdered By: Paul Mac on 12-12-2024 Cholesterol.total/Cho lesterol in HDL [Mass ratio] 2.42 {ratio} [facility] Serum creatinine measurement (mass/volume)Ordered By: Paul Mac on 12-12-2024 Creatinine [Mass/Vol] 1.15 mg/dL 0.70-1.20 [facility] Serum globulin measurementOr dered By: Paul Mac on 12-12-2024 Globulin (S) [Mass/Vol] 2.8 g/dL 2.2-4.2 [facility] Serum glucose measurement (m ass/volume)Ordered By: Paul Mac on 12-12-2024 Glucose [Mass/Vol] 112 mg/dL High 70-99 [facility] Serum or plasma alanine lim otransferase (ALT) measurementOrdered By: Paul Mac on 12-12-2024 ALT [Catalytic activity/Vol] 31 U/L <47 [facility] Serum or plasma albumin annette urement (mass/volume)Ordered By: Paul Mac on 12-12-2024 Albumin [Mass/Vol] 4.1 g/dL 3.4-4.8 [facility] Serum or plasma albumin/glob ulin mass ratioOrdered By: Paul Mac on 12-12-2024 Albumin/Globulin [Mass ratio] 1.5 {ratio} 0.9-2.4 [facility] Serum or plasma alkaline ha sphatase measurementOrdered By: Paul Mac on 12-12-2024 ALP [Catalytic activity/Vol] 79 U/L 40-129 [facility] Serum or plasma calcium annette urement (mass/volume)Ordered By: Paul Mac on 12-12-2024 Calcium [Mass/Vol] 9.4 mg/dL 7.6-11.0 [facility] Serum or plasma cholesterol in HDL measurement (mass/volume)Ordered By: Paul Mac on 12-12-2024 Cholesterol in HDL [Mass/Vol] 62 mg/dL >40 [facility] Comment on above: National Cholesterol Education Program (NCEP) guidelines:<40 mg/dL: Low HDL-cholesterol (major risk factor for CHD)>= 60 mg/dL: High HDL-cholesterol (negative risk factor for CHD)HDL-cholesterol is affected by a number of factors, e.g. smoking, exercise, hormones, sex and age. Serum or plasma cholesterol measurement (mass/volume)Ordered By: Paul Mac on 12-12-2024 Cholesterol [Mass/Vol] 150 mg/dL <201 [facility] Comment on above: Cholesterol level, D esirable <200 mg/dLBorderline high cholesterol 200-239 mg/dLHigh cholesterol >=240 mg/dLRecommendations of the NCEP Adult Treatment Panel for the following risk-cutoff thresholds for the [place] population. Serum or plasma urea nitroge n measurement (mass/volume)Ordered By: Paul Mac on 12-12-2024 Urea nitrogen [Mass/Vol] 31 mg/dL High 4-19 [facility] Sodium levelOrdered By: Paul Mac on 12-12-2024 Sodium [Moles/Vol] 139 mmol/L 133-145 [facility] Total proteinOrdered By: Palma Mac on 12-12-2024 Protein [Mass/Vol] 6.9 g/dL 5.9-8.4 [facility] Triglycerides measurementOrd ered By: Paul Mac on 12-12-2024 Triglyceride [Mass/Vol] 74 mg/dL <199 [facility] Comment on above: The drugs N-Acetylcy steine and Metamizole may falsely depress this assay. Normal range: <150 mg/dLBorderline High: 150-199 mg/dLHigh: 200-499 mg/dLVery High: >500 mg/dL White blood cell (WBC) count Ordered By: Paul Mac on 12-12-2024 WBC (Bld) [#/Vol] 8.3 10*3/uL 4.4-11.0 [facility] Pulmonary Visit Reporton Pulmonary Visit Report [facility] [place] [address] [place] [address] OFFICE VISIT Date of Service: 10/12/24 MR#: [id number] Acct: [id number] Name: MOO HOROWITZ Rep #: [id number] : 1945 Provider: Debbie Asher NP Age/Sex: 79/M Location: [facility].PM[facility] Status: Signed Assessment and Plan Assessment and [...] months. He does endorse that he has "not watched my salt intake". He is a lifetime non-smoker. Documentation reviewed [...] air Intake Visit Reasons: 1 Y FU [employer] Required: No DME Vendor: [employer] Accompanied by: Self Is patient in pain?: [...] you fallen in the past year?: No [facility] Medical History Wears glasses Excessive bleeding Arthritis Difficulty swallowing Non-smoker CPAP (continuous positive airway pressure) dependence History of echocardiogram History of stress test Cardiology follow-up encounter No (more content not included)... Normal [facility] BNP,B-Type NATRIURETIC PEPTI Keyur 07-28-2024 Natriuretic peptide B (Bld) [Mass/Vol] 80.1 pg/mL Normal 0-100 [facility] Comment on above: Performed By: #### L 501.9910, L100.0100, L500.4050, L501.5200, L503.6620, L500.4100 ####[facility] [address] [place], [address] CBC W/Diff, Automatedon 07-15 Absolute Lymph 1.39 X10 3/uL Normal 0.83-4.51 [facility] Comment on above: Performed By: #### L 501.9910, L100.0100, L500.4050, L501.5200, L503.6620, L500.4100 ####[facility] [address] [place], [address] Absolute Neut 3.7 X10 3/uL Normal 2.0-7.7 [facility] Comment on above: Performed By: #### L 501.9910, L100.0100, L500.4050, L501.5200, L503.6620, L500.4100 ####[facility] [address] [place], [address] Basophils/100 WBC (Bld) 0.5 % Normal 0-1 [facility] Comment on above: Performed By: #### L 501.9910, L100.0100, L500.4050, L501.5200, L503.6620, L500.4100 ####[facility] [address] [place], [address] Eosinophils/100 WBC (Bld) 2.0 % Normal 0-5 [facility] Comment on above: Performed By: #### L 501.9910, L100.0100, L500.4050, L501.5200, L503.6620, L500.4100 ####[facility] [address] [place], [address] Erythrocyte distribution width (RBC) [Ratio] 13.6 % Normal 11.6-14.6 [facility] Comment on above: Performed By: #### L 501.9910, L100.0100, L500.4050, L501.5200, L503.6620, L500.4100 ####[facility] [address] [place], [address] Hematocrit (Bld) [Volume fraction] 36.3 % Low 40-54 [facility] Comment on above: Performed By: #### L 501.9910, L100.0100, L500.4050, L501.5200, L503.6620, L500.4100 ####[facility] [address] [place], [address] Hemoglobin (Bld) [Mass/Vol] 12.1 g/dL Low 13.0-16.5 [facility] Comment on above: Performed By: #### L 501.9910, L100.0100, L500.4050, L501.5200, L503.6620, L500.4100 ####[facility] [address] [place], [address] IG% 0.700 Normal 0.0-0.9 [facility] Comment on above: Result Comment: IG% - Immature Granulocytes (promyelocytes, myelocytes and metamyelocytes) > 1% indicates that a LEFT SHIFT is Present. Performed By: #### L 501.9910, L100.0100, L500.4050, L501.5200, L503.6620, L500.4100 ####[facility] [address] [place], [address] Lymphocytes/100 WBC (Bld) 23.4 % Normal 19-41 [facility] Comment on above: Performed By: #### L 501.9910, L100.0100, L500.4050, L501.5200, L503.6620, L500.4100 ####[facility] [address] [place], [address] MCH (RBC) [Entitic mass] 32.4 pg High 27.0-32.0 [facility] Comment on above: Performed By: #### L 501.9910, L100.0100, L500.4050, L501.5200, L503.6620, L500.4100 ####[facility] [address] [place], [address] MCHC (RBC) [Mass/Vol] 33.3 g/dL Normal 32-36 [facility] Comment on above: Performed By: #### L 501.9910, L100.0100, L500.4050, L501.5200, L503.6620, L500.4100 ####[facility] [address] [place], [address] MCV (RBC) [Entitic vol] 97.1 fL High 80-94 [facility] Comment on above: Performed By: #### L 501.9910, L100.0100, L500.4050, L501.5200, L503.6620, L500.4100 ####[facility] [address] [place], [address] Monocytes/100 WBC (Bld) 11.4 % High 0-10 [facility] Comment on above: Performed By: #### L 501.9910, L100.0100, L500.4050, L501.5200, L503.6620, L500.4100 ####[facility] [address] [place], [address] Neutrophils/100 WBC (Bld) 62.0 % Normal 47-70 [facility] Comment on above: Performed By: #### L 501.9910, L100.0100, L500.4050, L501.5200, L503.6620, L500.4100 ####[facility] [address] [place], [address] Nucleated RBC (Bld) [#/Vol] 0 10*3/uL Normal 0-5 [facility] Comment on above: Performed By: #### L 501.9910, L100.0100, L500.4050, L501.5200, L503.6620, L500.4100 ####[facility] [address] [place], [address] Platelet mean volume (Bld) [Entitic vol] 11.6 fL Normal 6.2-12.0 [facility] Comment on above: Performed By: #### L 501.9910, L100.0100, L500.4050, L501.5200, L503.6620, L500.4100 ####[facility] [address] [place], [address] Platelets (Bld) [#/Vol] 198 10*3/uL Normal 150-450 [facility] Comment on above: Performed By: #### L 501.9910, L100.0100, L500.4050, L501.5200, L503.6620, L500.4100 ####[facility] [address] [place], [address] RBC (Bld) [#/Vol] 3.74 10*6/uL Low 4.6-6.2 [facility] Comment on above: Performed By: #### L 501.9910, L100.0100, L500.4050, L501.5200, L503.6620, L500.4100 ####[facility] [address] [place], [address] RDW SD 48.7 fl High 35.1-43.9 [facility] Comment on above: Performed By: #### L 501.9910, L100.0100, L500.4050, L501.5200, L503.6620, L500.4100 ####[facility] [address] [place], [address] WBC (Bld) [#/Vol] 6.0 10*3/uL Normal 4.4-11.0 [facility] Comment on above: Performed By: #### L 501.9910, L100.0100, L500.4050, L501.5200, L503.6620, L500.4100 ####[facility] [address] [place], [address] Comprehensive Metabolic Prof [facility] 07-28-2024 Albumin [Mass/Vol] 3.6 g/dL Normal 3.2-5.0 [facility] Comment on above: Order Comment: DR. Cruz CULLEN ORDERED PSA,CMP,LIPIDDR.JAMES ORDERED BTNP,CBCD,CMP,MG Performed By: #### L 501.9910, L100.0100, L500.4050, L501.5200, L503.6620, L500.4100 ####[facility] [address] [place], [address] Albumin/Globulin [Mass ratio] 1.1 {ratio} Normal 0.9-2.4 [facility] Comment on above: Order Comment: DR. Cruz CULLEN ORDERED PSA,CMP,LIPIDDR.JAMES ORDERED BTNP,CBCD,CMP,MG Performed By: #### L 501.9910, L100.0100, L500.4050, L501.5200, L503.6620, L500.4100 ####[facility] [address] [place], [address] ALK P 91 U/L Normal 45-117 [facility] Comment on above: Order Comment: DR. Cruz CULLEN ORDERED PSA,CMP,LIPIDDR.JAMES ORDERED BTNP,CBCD,CMP,MG Performed By: #### L 501.9910, L100.0100, L500.4050, L501.5200, L503.6620, L500.4100 ####[facility] [address] [place], [place], [id number] ALT [Catalytic activity/Vol] 25 U/L Normal 16-61 [facility] Comment on above: Order Comment: DR. Cruz CULLEN ORDERED PSA,CMP,LIPIDDR.JAMES ORDERED BTNP,CBCD,CMP,MG Performed By: #### L 501.9910, L100.0100, L500.4050, L501.5200, L503.6620, L500.4100 ####[facility] [address] [place], [address] AST [Catalytic activity/Vol] 21 U/L Normal 15-37 [facility] Comment on above: Order Comment: DR. Cruz CULLEN ORDERED PSA,CMP,LIPIDDR.JAMES ORDERED BTNP,CBCD,CMP,MG Performed By: #### L 501.9910, L100.0100, L500.4050, L501.5200, L503.6620, L500.4100 ####[facility] [address] [place], [place], [address] Bilirubin [Mass/Vol] 0.40 mg/dL Normal 0.20-1.00 [facility] Comment on above: Order Comment: DR. Cruz CULLEN ORDERED PSA,CMP,LIPIDDR.JAMES ORDERED BTNP,CBCD,CMP,MG Result Comment: For patients on eltrombopag therapy, use of Dimension Skandia TBIL is not recommended. Performed By: #### L 501.9910, L100.0100, L500.4050, L501.5200, L503.6620, L500.4100 ####[facility] [address] [place], [place], [phone] BUN/CRE 27.8 RATIO High 10-20 [facility] Comment on above: Order Comment: DR. Cruz CULLEN ORDERED PSA,CMP,LIPIDDR.JAMES ORDERED BTNP,CBCD,CMP,MG Performed By: #### L 501.9910, L100.0100, L500.4050, L501.5200, L503.6620, L500.4100 ####[facility] [address] [place], [place], [id number] CA,Total 9.2 mg/dL Normal 8.5-10.1 [facility] Comment on above: Order Comment: DR. Cruz CULLEN ORDERED PSA,CMP,LIPIDDR.JAMES ORDERED BTNP,CBCD,CMP,MG Performed By: #### L 501.9910, L100.0100, L500.4050, L501.5200, L503.6620, L500.4100 ####[facility] [address] [place], [address] Chloride [Moles/Vol] 104 mmol/L Normal 98-107 [facility] Comment on above: Order Comment: DR. Cruz CULLEN ORDERED PSA,CMP,LIPIDDR.JAMES ORDERED BTNP,CBCD,CMP,MG Performed By: #### L 501.9910, L100.0100, L500.4050, L501.5200, L503.6620, L500.4100 ####[facility] [address] [place], [address] CO2 [Moles/Vol] 30.0 mmol/L Normal 21.0-32.0 [facility] Comment on above: Order Comment: DR. Cruz CULLEN ORDERED PSA,CMP,LIPIDDR.JAMES ORDERED BTNP,CBCD,CMP,MG Performed By: #### L 501.9910, L100.0100, L500.4050, L501.5200, L503.6620, L500.4100 ####[facility] [address] [place], [address] Creatinine [Mass/Vol] 1.08 mg/dL Normal 0.70-1.30 [facility] Comment on above: Order Comment: DR. Cruz CULLEN ORDERED PSA,CMP,LIPIDDR.JAMES ORDERED BTNP,CBCD,CMP,MG Result Comment: The validity of the calculated GFR GFRAA in patients over 70 years has not been determined. Clinical correlation is essential. Performed By: #### L 501.9910, L100.0100, L500.4050, L501.5200, L503.6620, L500.4100 ####[facility] [address] [place], [address] EST GFR - AA 85 mL/min Normal >60 [facility] Comment on above: Order Comment: DR. Cruz CULLEN ORDERED PSA,CMP,LIPIDDR.JAMES ORDERED BTNP,CBCD,CMP,MG Result Comment: Afri can Bahraini GFR Calc Performed By: #### L 501.9910, L100.0100, L500.4050, L501.5200, L503.6620, L500.4100 ####[facility] [address] [place], [address] GAP 5 Normal 5-15 [facility] Comment on above: Order Comment: DR. Cruz CULLEN ORDERED PSA,CMP,LIPIDDR.JAMES ORDERED BTNP,CBCD,CMP,MG Performed By: #### L 501.9910, L100.0100, L500.4050, L501.5200, L503.6620, L500.4100 ####[facility] [address] [place], [address] GFR/1.73 sq M.predicted among non-blacks MDRD (S/P/Bld) [Vol rate/Area] 70 mL/min/{1.73_m2} Normal >60 [facility] Comment on above: Order Comment: DR. Cruz CULLEN ORDERED PSA,CMP,LIPIDDR.JAMES ORDERED BTNP,CBCD,CMP,MG Result Comment: Non- GFR Calc Performed By: #### L 501.9910, L100.0100, L500.4050, L501.5200, L503.6620, L500.4100 ####[facility] [address] [place], [address] Globulin (S) [Mass/Vol] 3.3 g/dL Normal 2.2-4.2 [facility] Comment on above: Order Comment: DR. Cruz CULLEN ORDERED PSA,CMP,LIPIDDR.JAMES ORDERED BTNP,CBCD,CMP,MG Performed By: #### L 501.9910, L100.0100, L500.4050, L501.5200, L503.6620, L500.4100 ####[facility] [address] [place], [address] Glucose [Mass/Vol] 103 mg/dL Normal 74-106 [facility] Comment on above: Order Comment: DR. Cruz CULLEN ORDERED PSA,CMP,LIPIDDR.JAMES ORDERED BTNP,CBCD,CMP,MG Result Comment: Fast ing Glucose result from 100 to 125 mg/dL suggests IMPAIRED HOMEOSTASIS per A.D.A. criteria. Performed By: #### L 501.9910, L100.0100, L500.4050, L501.5200, L503.6620, L500.4100 ####[facility] [address] [place], [address] Potassium [Moles/Vol] 4.3 mmol/L Normal 3.5-5.1 [facility] Comment on above: Order Comment: DR. Cruz CULLEN ORDERED PSA,CMP,LIPIDDR.JAMES ORDERED BTNP,CBCD,CMP,MG Performed By: #### L 501.9910, L100.0100, L500.4050, L501.5200, L503.6620, L500.4100 ####[facility] [address] [place], [address] Sodium [Moles/Vol] 139 mmol/L Normal 136-145 [facility] Comment on above: Order Comment: DR. Cruz CULLEN ORDERED PSA,CMP,LIPIDDR.JAMES ORDERED BTNP,CBCD,CMP,MG Performed By: #### L 501.9910, L100.0100, L500.4050, L501.5200, L503.6620, L500.4100 ####[facility] [address] [place], [address] T PROT 6.9 g/dL Normal 6.4-8.2 [facility] Comment on above: Order Comment: DR. Cruz CULLEN ORDERED PSA,CMP,LIPIDDR.JAMES ORDERED BTNP,CBCD,CMP,MG Performed By: #### L 501.9910, L100.0100, L500.4050, L501.5200, L503.6620, L500.4100 ####[facility] [address] [place], [address] Urea nitrogen [Mass/Vol] 30 mg/dL High 7-18 [facility] Comment on above: Order Comment: DR. Cruz CULLEN ORDERED PSA,CMP,LIPIDDR.JAMES ORDERED BTNP,CBCD,CMP,MG Performed By: #### L 501.9910, L100.0100, L500.4050, L501.5200, L503.6620, L500.4100 ####[facility] [address] [place], [address] Lipid Profileon 07-28-2024 Cholesterol [Mass/Vol] 136 mg/dL Normal 200 [facility] Comment on above: Order Comment: DR. Cruz CULLEN ORDERED PSA,CMP,LIPIDDR.JAMES ORDERED BTNP,CBCD,CMP,MG Result Comment: <200 mg/dL Desirable 200-240 mg/dL Borderline >240 mg/dL High Risk Performed By: #### L 501.9910, L100.0100, L500.4050, L501.5200, L503.6620, L500.4100 ####[facility] [address] [place], [address] Cholesterol in HDL [Mass/Vol] 52 mg/dL Normal [facility] Comment on above: Order Comment: DR. Cruz CULLEN ORDERED PSA,CMP,LIPIDDR.JAMES ORDERED BTNP,CBCD,CMP,MG Result Comment: The drugs N-Acetylcysteine and Metamizole may falsely depress this assay. Reference Range HDL <40 mg/dL Low HDL Cholesterol HDL >or= 60 mg/dL High HDL Cholesterol Performed By: #### L 501.9910, L100.0100, L500.4050, L501.5200, L503.6620, L500.4100 ####[facility] [address] [place], [address] Cholesterol in LDL [Mass/Vol] 49 mg/dL Normal 0-130 [facility] Comment on above: Order Comment: DR. Cruz CULLEN ORDERED PSA,CMP,LIPIDDR.JAMES ORDERED BTNP,CBCD,CMP,MG Performed By: #### L 501.9910, L100.0100, L500.4050, L501.5200, L503.6620, L500.4100 ####[facility] [address] [place], [address] Cholesterol in VLDL [Mass/Vol] 35 mg/dL Normal 5-40 [facility] Comment on above: Order Comment: DR. Cruz CULLEN ORDERED PSA,CMP,LIPIDDR.JAMES ORDERED BTNP,CBCD,CMP,MG Performed By: #### L 501.9910, L100.0100, L500.4050, L501.5200, L503.6620, L500.4100 ####[facility] [address] [place], [address] Triglyceride [Mass/Vol] 177 mg/dL Normal [facility] Comment on above: Order Comment: DR. Cruz CULLEN ORDERED PSA,CMP,LIPIDDR.JAMES ORDERED BTNP,CBCD,CMP,MG Result Comment: The drugs N-Acetylcysteine and Metamizole may falsely depress this assay. Serum Triglycerides Reference Interval Normal <150 mg/dL Borderline high 150 - 199 mg/dL High 200 - 499 mg/dL Very High > or = 500 mg/dL Performed By: #### L 501.9910, L100.0100, L500.4050, L501.5200, L503.6620, L500.4100 ####[facility] [address] [place], [address] Magnesiumon 07-28-2024 Magnesium [Mass/Vol] 2.0 mg/dL Normal 1.6-2.6 [facility] Comment on above: Order Comment: DR. Cruz CULLEN ORDERED PSA,CMP,LIPIDDR.JAMES ORDERED BTNP,CBCD,CMP,MG Performed By: #### L 501.9910, L100.0100, L500.4050, L501.5200, L503.6620, L500.4100 ####[facility] [address] [place], [address] PSA,Total - Annual Screenon 07-28-2024 PSA,TOT SCREEN 2.20 ng/mL Normal 0.00-4.00 [facility] Comment on above: Order Comment: DR. Cruz CULLEN ORDERED PSA,CMP,LIPIDDR.JAMES ORDERED BTNP,CBCD,CMP,MG Result Comment: This test was performed using the TPSA assay method for the [employer] chemistry system. Values obtained with different assay methods cannot be used interchangably. When changing PSA assays in the course of monitoring a patient, additional sequential testing should be carried out to confirm baseline values. Performed By: #### L 501.9910, L100.0100, L500.4050, L501.5200, L503.6620, L500.4100 ####[facility] [address] [place], [address] Cardiology Visit Reporton Cardiology Visit Report [facility] [address] [place] [address] OFFICE VISIT Date of Service: 07/20/24 MR#: [id number] Acct: [id number] Name: MOO HOROWITZ Rep #: [id number] : 1945 Provider: HONEY gross Age/Sex: 79/M Location: [facility] Status: Signed HPI HPI History of Present Illness Details: MOO HOROWITZ, is a 79 M who presents to the office today for a follow-up visit. 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 the patient's ejection fraction at time of initial implant was 40% it was felt to be tachycardia mediated years by the old notes from [place]. Subsequently the patient had an echocardiogram done in January 2022 which showed improvement in his ejection fraction of 55%. He acknowledges "indigestion" discomfort. He states this is "once in a great while" and unchanged from previous. He notes this [...] Visit Reasons: 6 M FU/ESTEFANÍA @ 10 [employer] Required: No Is patient in pain?: No [...] the past year?: No PFSH Medical History (Reviewed 07/20/24 @ 11:04 by Joaquin Ramirez SECURITY SYSTEMS TECHNICIAN, SECURITY SYSTEMS TECHNICIAN-C) Wears glasses Excessive bleeding Arthritis Difficulty swallowing [...] Cardiomyopathy in disease classified elsewhere Surgical History (Reviewed 07/20/24 @ 11:04 by Joaquin Ramirez SECURITY SYSTEMS TECHNICIAN, SECURITY SYSTEMS TECHNICIAN-C) History of appendectomy History of colonoscopy Biventricular [...] Negative for dizziness Cardio Chest Pain: Yes ("indigestion") Frequency: other ("Once in a great while"-unchanged from previous) Character: other (Indigestion) Onset: with meals and other (Activity) Location: epigastric Palpitations: No (more content not included)... Normal [facility] Pacemaker Checkon 07-20-2024 Pacemaker Check [facility] [address] [place] [address] Pacemaker Check Date of Service: 07/20/24 1449 MR#: [id number] Acct: [id number] Name: MOO HOROWITZ Rep #: [id number] : 1945 From: Sharon Gunn Age/Sex: 79/M Location: [facility] Status: Signed Billing Codes PM Device Codes: 76986 PM Dev Prog Eval, Multi Assessment and Plan Assessment and Plan (1) Non-sustained ventricular tachycardia: Status: Acute Comment: per device check 07/03/21, 07/20/2024 (2) Biventricular cardiac pacemaker in situ: Status: Chronic (3) Left bundle branch block (LBBB): Status: Chronic (4) Mobitz type II atrioventricular block: Status: Chronic 07/20/24 1450 Date Sharon Forbes Signature: Date (if applicable) CC: Normal [facility] Absolute lymphocyte countOrd ered By: Joaquin James on 11-30-2023 Lymphocytes Auto (Unsp spec) [#/Vol] 1.33 10*3/uL 0.83-4.51 [facility] Automated lymphocyte count a s percentage of total leukocytesOrdered By: Joaquin James on 11-30-2023 Lymphocytes/100 WBC Auto (Unsp spec) 22.2 % 19-41 [facility] Basophil percentageOrdered B y: Joaquin James on 11-30-2023 Basophils/100 WBC (Bld) 0.8 % 0-1 [facility] Bilirubin [Mass/Vol] 0.50 mg/dL 0.20-1.00 [facility] Comment on above: For patients on eltr ombopag therapy, use of Dimension Skandia TBIL is not recommended. Chloride [Moles/Vol] 106 mmol/L 98-107 [facility] Eosinophils/100 WBC (Bld) 1.8 % 0-5 [facility] Glucose [Mass/Vol] 84 mg/dL 74-106 [facility] Hemoglobin (Bld) [Mass/Vol] 11.9 g/dL 13.0-16.5 [facility] Monocytes/100 WBC (Bld) 12.5 % 0-10 [facility] Neutrophils (Bld) [#/Vol] 3.7 10*3/uL 2.0-7.7 [facility] Neutrophils/100 WBC (Bld) 62.5 % 47-70 [facility] Potassium [Moles/Vol] 4.2 mmol/L 3.5-5.1 [facility] Protein [Mass/Vol] 7.0 g/dL 6.4-8.2 [facility] Sodium [Moles/Vol] 142 mmol/L 136-145 [facility] WBC (Bld) [#/Vol] 6.0 10*3/uL 4.4-11.0 [facility] Determination of erythrocyte mean corpuscular volume (MCV)Ordered By: Joaquin Ramirez on 11-30-2023 MCV (RBC) [Entitic vol] 96.6 fL 80-94 [facility] Erythrocyte distribution wid th ratioOrdered By: Joaquin Ramirez on 11-30-2023 Erythrocyte distribution width (RBC) [Ratio] 13.7 % 11.6-14.6 [facility] Erythrocyte distribution wid th standard deviationOrdered By: Joaquin Ramirez on 11-30-2023 Erythrocyte distribution width (RBC) [Entitic vol] 49.0 fL 35.1-43.9 [facility] Hematocrit Auto (Bld) [Volum e fraction]Ordered By: Joaquin Ramirez on 11-30-2023 Hematocrit (Bld) [Volume fraction] 37.5 % 40-54 [facility] Immature granulocytes/100 WB C Auto (Bld)Ordered By: Joaquin Ramirez on 11-30-2023 Immature granulocytes/100 WBC (Bld) 0.200 % 0.0-0.9 [facility] Comment on above: IG% - Immature Granu locytes (promyelocytes, myelocytes and metamyelocytes) > 1% indicates that a LEFT SHIFT is Present. Laboratory - Chemistry and C hemistry - challengeOrdered By: Joaquin Ramirez on 11-30-2023 Albumin/Globulin [Mass ratio] 1.1 {ratio} 0.9-2.4 [facility] ALP [Catalytic activity/Vol] 90 U/L 45-117 [facility] ALT [Catalytic activity/Vol] 25 U/L 16-61 [facility] CO2 [Moles/Vol] 30.0 mmol/L 21.0-32.0 [facility] Globulin (S) [Mass/Vol] 3.4 g/dL 2.2-4.2 [facility] Magnesium [Mass/Vol] 2.3 mg/dL 1.6-2.6 [facility] Urea nitrogen/Creatinine [Mass ratio] 22.4 mg/mg 10-20 [facility] Laboratory - Hematology and Cell countsOrdered By: Joaquin Ramirez on 11-30-2023 MCH (RBC) [Entitic mass] 30.7 pg 27.0-32.0 [facility] MCHC (RBC) [Mass/Vol] 31.7 g/dL 32-36 [facility] Nucleated RBC/100 WBC (Bld) [Ratio] 0 % 0-5 [facility] Platelet mean volume (Bld) [Entitic vol] 11.7 fL 6.2-12.0 [facility] Platelets (Bld) [#/Vol] 225 10*3/uL 150-450 [facility] No Panel InformationOrdered By: Joaquin Ramirez on 11-30-2023 Estimated GFR (MDRD) Amer 100 mL/min >60 [facility] Comment on above: GFR Calc Estimated GFR (MDRD) Non-Af Amer 83 mL/min >60 [facility] Comment on above: Non- GFR Calc RBC Auto (Bld) [#/Vol]Ordere d By: Joaquin Ramirez on 11-30-2023 RBC (Bld) [#/Vol] 3.88 10*6/uL 4.6-6.2 [facility] Serum or plasma calcium annette urement (mass/volume)Ordered By: Joaquin Ramirez on 11-30-2023 Calcium [Mass/Vol] 8.7 mg/dL 8.5-10.1 [facility] Serum or plasma creatinine m easurement (mass/volume)Ordered By: Joaquin Ramirez on 11-30-2023 Creatinine [Mass/Vol] 0.94 mg/dL 0.70-1.30 [facility] Comment on above: The validity of the calculated GFR & GFRAA in patients over 70 years has not been determined. Clinical correlation is essential. Serum or plasma thyroid stim ulating hormone (TSH) measurement (units/volume)Ordered By: Joaquin Ramirez on 11-30-2023 TSH Qn 1.72 uIU/mL 0.358-3.74 [facility] Serum or plasma urea nitroge n measurement (mass/volume)Ordered By: Joaquin Ramirez on 11-30-2023 Urea nitrogen [Mass/Vol] 21 mg/dL -18 [facility] Thin prep Papanicolaou smear with manual screeningOrdered By: Joaquin Ramirez on 11-30-2023 Thin prep Papanicolaou smear with manual screening 3.6 g/dL 3.2-5.0 [facility] Thin prep Papanicolaou smear with manual screening 27 U/L 15-37 [facility] [place] [facility] Papanicolaou smear with manual screening 6 5-15 [facility] Thin prep Papanicolaou smear with manual screening 0.98 ng/dL 0.76-1.46 [facility] Basophil percentageOrdered B y: Joaquin Ramirez on 08-17-2023 Chloride [Moles/Vol] 108 mmol/L 98-107 [facility] Glucose [Mass/Vol] 96 mg/dL 74-106 [facility] Potassium [Moles/Vol] 4.4 mmol/L 3.5-5.1 [facility] Sodium [Moles/Vol] 140 mmol/L 136-145 [facility] WBC (Bld) [#/Vol] 6.2 10*3/uL 4.4-11.0 [facility] Blood erythrocytes count (nu mber/volume)Ordered By: Joaquin Ramirez on 08-17-2023 RBC (Bld) [#/Vol] 4.00 10*6/uL 4.6-6.2 [facility] Blood hemoglobin measurement (mass/volume)Ordered By: Joaquin Ramirez on 08-17-2023 Hemoglobin (Bld) [Mass/Vol] 12.4 g/dL 13.0-16.5 [facility] Blood platelet mean volumeOr dered By: Joaquin Ramirez on 08-17-2023 Platelet mean volume (Bld) [Entitic vol] 10.8 fL 6.2-12.0 [facility] Determination of erythrocyte mean corpuscular volume (MCV)Ordered By: Joaquin Ramirez on 08-17-2023 MCV (RBC) [Entitic vol] 97.5 fL 80-94 [facility] Hematocrit Auto (Bld) [Volum e fraction]Ordered By: Joaquin Ramirez on 08-17-2023 Hematocrit (Bld) [Volume fraction] 39.0 % 40-54 [facility] Laboratory - Chemistry and C hemistry - challengeOrdered By: Joaquin Ramirez on 08-17-2023 CO2 [Moles/Vol] 29.0 mmol/L 21.0-32.0 [facility] Urea nitrogen/Creatinine [Mass ratio] 23.8 mg/mg 10-20 [facility] Laboratory - Hematology and Cell countsOrdered By: Joaquin Ramirez on 08-17-2023 Erythrocyte distribution width (RBC) [Entitic vol] 49.5 fL 35.1-43.9 [facility] Erythrocyte distribution width (RBC) [Ratio] 13.7 % 11.6-14.6 [facility] MCH (RBC) [Entitic mass] 31.0 pg 27.0-32.0 [facility] MCHC Auto (RBC) [Mass/Vol]Or dered By: Joaquin Ramirez on 08-17-2023 MCHC (RBC) [Mass/Vol] 31.8 g/dL 32-36 [facility] No Panel InformationOrdered By: Joaquin Ramirez on 08-17-2023 Estimated Creatinine Clearance Calc 68.01 ml/min [facility] Estimated GFR (MDRD) Amer 107 mL/min >60 [facility] Comment on above: GFR Calc Estimated GFR (MDRD) Non-Af Amer 89 mL/min >60 [facility] Comment on above: Non- GFR Calc Platelets bldOrdered By: Maxwell Ramirez on 08-17-2023 Platelets (Bld) [#/Vol] 229 10*3/uL 150-450 [facility] Serum or plasma calcium annette urement (mass/volume)Ordered By: Joaquin Ramirez on 08-17-2023 Calcium [Mass/Vol] 8.9 mg/dL 8.5-10.1 [facility] Serum or plasma creatinine m easurement (mass/volume)Ordered By: Joaquin Ramirez on 08-17-2023 Creatinine [Mass/Vol] 0.88 mg/dL 0.70-1.30 [facility] Comment on above: The validity of the calculated GFR & GFRAA in patients over 70 years has not been determined. Clinical correlation is essential. Serum or plasma urea nitroge n measurement (mass/volume)Ordered By: Joaquin Ramirez on 08-17-2023 Urea nitrogen [Mass/Vol] 21 mg/dL 7-18 [facility] Thin prep Papanicolaou smear with manual screeningOrdered By: Joaquin Ramirez on 08-17-2023 Thin prep Papanicolaou smear with manual screening 3 5-15 [facility] Basophil percentageOrdered B y: Paul Mac on 07-16-2023 Bilirubin [Mass/Vol] 0.30 mg/dL 0.20-1.00 [facility] Comment on above: For patients on eltr ombopag therapy, use of [employer]ension [employer] TBIL is not recommended. Chloride [Moles/Vol] 107 mmol/L 98-107 [facility] Glucose [Mass/Vol] 85 mg/dL 74-106 [facility] Potassium [Moles/Vol] 4.9 mmol/L 3.5-5.1 [facility] Protein [Mass/Vol] 7.1 g/dL 6.4-8.2 [facility] Sodium [Moles/Vol] 140 mmol/L 136-145 [facility] Laboratory - Chemistry and C hemistry - challengeOrdered By: Paul Mac on 07-16-2023 ALP [Catalytic activity/Vol] 103 U/L 45-117 [facility] ALT [Catalytic activity/Vol] 29 U/L 16-61 [facility] CO2 [Moles/Vol] 29.0 mmol/L 21.0-32.0 [facility] Globulin (S) [Mass/Vol] 3.4 g/dL 2.2-4.2 [facility] Urea nitrogen/Creatinine [Mass ratio] 25.7 mg/mg 10-20 [facility] No Panel InformationOrdered By: Paul Mac on 07-16-2023 Estimated GFR (MDRD) Amer 92 mL/min >60 [facility] Comment on above: GFR Calc Estimated GFR (MDRD) Non-Af Amer 76 mL/min >60 [facility] Comment on above: Non- GFR Calc Serum or plasma albumin annette urement (mass/volume)Ordered By: Paul Mac on 07-16-2023 Albumin [Mass/Vol] 3.7 g/dL 3.2-5.0 [facility] Serum or plasma albumin/glob ulin mass ratioOrdered By: Paul Mac on 07-16-2023 Albumin/Globulin [Mass ratio] 1.1 {ratio} 0.9-2.4 [facility] Serum or plasma calcium annette urement (mass/volume)Ordered By: Paul Mac on 07-16-2023 Calcium [Mass/Vol] 9.3 mg/dL 8.5-10.1 [facility] Serum or plasma creatinine m easurement (mass/volume)Ordered By: Paul Mac on 07-16-2023 Creatinine [Mass/Vol] 1.01 mg/dL 0.70-1.30 [facility] Comment on above: The validity of the calculated GFR & GFRAA in patients over 70 years has not been determined. Clinical correlation is essential. Serum or plasma urea nitroge n measurement (mass/volume)Ordered By: Paul Mac on 07-16-2023 Urea nitrogen [Mass/Vol] 26 mg/dL 7-18 [facility] Thin prep Papanicolaou smear with manual screeningOrdered By: Paul Mac on 07-16-2023 Thin prep Papanicolaou smear with manual screening 21 U/L 15-37 [facility] Thin prep Papanicolaou smear with manual screening 4 5-15 [facility] HIV 1 and HIV-2 antibody ass ay with HIV-1 p24 antigen detectionOrdered By: Jairo Ring on 06-08-2023 HIV 1+2 Ab+HIV1 p24 Ag IA Ql Non-Reactive Nonreactive [facility] No Panel InformationOrdered By: Jairo Ring on 06-08-2023 Hepatitis B Surface Antigen Non-Reactive Nonreactive [facility] Hepatitis C Antibody Non-Reactive Nonreactive [facility] Comment on above: Non Reactive: < 0.8 Equivocal: >/= 0.8 to < 1.0 Reactive: >/= 1.0The CDC recommends that a reactive/equivocal HCV antibody result be followed up by the HCV Nucleic Acid Amplificationtest (551905) Basophil percentageOrdered B y: Dr. Mac on 01-14-2023 Chloride [Moles/Vol] 107 mmol/L 98-107 [facility] Cholesterol [Mass/Vol] 202 mg/dL <200 [facility] Comment on above: <200 mg/dL Desirable 200-240 mg/dL Borderline >240 mg/dL High Risk Glucose [Mass/Vol] 71 mg/dL 74-106 [facility] Potassium [Moles/Vol] 4.8 mmol/L 3.5-5.1 [facility] Sodium [Moles/Vol] 141 mmol/L 136-145 [facility] Triglyceride [Mass/Vol] 88 mg/dL <199 [facility] Comment on above: The drugs N-Acetylcy steine and Metamizole may falsely depress this assay.Serum Triglycerides Reference Interval Normal <150 mg/dL Borderline high 150 - 199 mg/dL High 200 - 499 mg/dL Very High > or = 500 mg/dL Laboratory - Chemistry and C hemistry - challengeOrdered By: Dr. Mac on 01-14-2023 CO2 [Moles/Vol] 29.0 mmol/L 21.0-32.0 [facility] Urea nitrogen/Creatinine [Mass ratio] 25.0 mg/mg 10-20 [facility] No Panel InformationOrdered By: Dr. Mac on 01-14-2023 Estimated GFR (MDRD) Amer 98 mL/min >60 [facility] Comment on above: GFR Calc Estimated GFR (MDRD) Non-Af Amer 81 mL/min >60 [facility] Comment on above: Non- GFR Calc Serum or plasma calcium annette urement (mass/volume)Ordered By: Dr. Mac on 01-14-2023 Calcium [Mass/Vol] 9.3 mg/dL 8.5-10.1 [facility] Serum or plasma cholesterol in HDL measurement (mass/volume)Ordered By: Dr. Mac on 01-14-2023 Cholesterol in HDL [Mass/Vol] 61 mg/dL >40 [facility] Comment on above: The drugs N-Acetylcy steine and Metamizole may falsely depress this assay. Reference Range HDL <40 mg/dL Low HDL Cholesterol HDL >or= 60 mg/dL High HDL Cholesterol Serum or plasma cholesterol in VLDL measurement (mass/volume)Ordered By: Dr. Mac on 01-14-2023 Cholesterol in VLDL [Mass/Vol] 18 mg/dL 5-40 [facility] Serum or plasma creatinine m easurement (mass/volume)Ordered By: Dr. Mac on 01-14-2023 Creatinine [Mass/Vol] 0.96 mg/dL 0.70-1.30 [facility] Comment on above: The validity of the calculated GFR & GFRAA in patients over 70 years has not been determined. Clinical correlation is essential. Serum or plasma low density lipoprotein (LDL) cholesterol measurement (mass/volume)Ordered By: Dr. Mac on 01-14-2023 Cholesterol in LDL [Mass/Vol] 123 mg/dL 0-130 [facility] Serum or plasma urea nitroge n measurement (mass/volume)Ordered By: Dr. Mac on 01-14-2023 Urea nitrogen [Mass/Vol] 24 mg/dL 7-18 [facility] Thin prep Papanicolaou smear with manual screeningOrdered By: Dr. Mac on 01-14-2023 Thin prep Papanicolaou smear with manual screening 5 5-15 [facility] Absolute lymphocyte counton 05-28-2022 Lymphocytes Auto (Unsp spec) [#/Vol] 1.26 10*3/uL 0.83-4.51 [facility] Work Phone: Basophil percentageon 2021 Basophils/100 WBC (Bld) 0.8 % 0-1 [facility] Work Phone: Chloride [Moles/Vol] 105 mmol/L 98-107 [facility] Work Phone: Cholesterol [Mass/Vol] 211 mg/dL <200 [facility] Work Phone: Comment on above: <200 mg/dL Desirable 200-240 mg/dL Borderline >240 mg/dL High Risk Eosinophils/100 WBC (Bld) 1.7 % 0-5 [facility] Work Phone: [phone] Glucose [Mass/Vol] 75 mg/dL 74-106 [facility] Work Phone: [phone] Neutrophils (Bld) [#/Vol] 4.3 10*3/uL 2.0-7.7 [facility] Work Phone: Neutrophils/100 WBC (Bld) 65.6 % 47-70 [facility] Work Phone: Potassium [Moles/Vol] 4.5 mmol/L 3.5-5.1 [facility] Work Phone: [phone] Sodium [Moles/Vol] 140 mmol/L 136-145 [facility] Work Phone: [phone] Testosterone [Mass/Vol] 677.20 ng/dL [facility] Work Phone: Comment on above: CENTRAL 90% REFERENC E RANGES MALE AGE <50 197.44 - 669.58 ng/dL MALE AGE > or = 50 187.72 - 684.19 ng/dL FEMALE AGE <50 8.38 - 35.01 ng/dL FEMALE AGE > or = 50 <7.00 - 35.92 ng/dL Effective as of 04/09/21 Triglyceride [Mass/Vol] 112 mg/dL <199 [facility] Work Phone: [phone] Comment on above: The drugs N-Acetylcy steine and Metamizole may falsely depress this assay.Serum Triglycerides Reference Interval Normal <150 mg/dL Borderline high 150 - 199 mg/dL High 200 - 499 mg/dL Very High > or = 500 mg/dL WBC (Bld) [#/Vol] 6.5 10*3/uL 4.4-11.0 [facility] Work Phone: Blood erythrocytes count (nu mber/volume)on 05-28-2022 RBC (Bld) [#/Vol] 4.17 10*6/uL 4.6-6.2 [facility] Work Phone: Blood hemoglobin measurement (mass/volume)on 05-28-2022 Hemoglobin (Bld) [Mass/Vol] 13.3 g/dL 13.0-16.5 [facility] Work Phone: Blood lymphocytes/100 leukoc yteson 05-28-2022 Lymphocytes/100 WBC (Bld) 19.5 % 19-41 [facility] Work Phone: Blood monocytes/100 leukocyt eson 05-28-2022 Monocytes/100 WBC (Bld) 12.1 % 0-10 [facility] Work Phone: Blood platelet mean volumeon 05-28-2022 Platelet mean volume (Bld) [Entitic vol] 11.5 fL 6.2-12.0 [facility] Work Phone: Determination of erythrocyte mean corpuscular volume (MCV)on 05-28-2022 MCV (RBC) [Entitic vol] 97.6 fL 80-94 [facility] Work Phone: Hematocrit Auto (Bld) [Volum e fraction]on 05-28-2022 Hematocrit (Bld) [Volume fraction] 40.7 % 40-54 [facility] Work Phone: Laboratory - Chemistry and C hemistry - challengeon 05-28-2022 CO2 [Moles/Vol] 31.0 mmol/L 21.0-32.0 [facility] Work Phone: Urea nitrogen/Creatinine [Mass ratio] 22.5 mg/mg 10-20 [facility] Work Phone: Laboratory - Hematology and Cell countson 05-28-2022 Erythrocyte distribution width (RBC) [Entitic vol] 50.0 fL 35.1-43.9 [facility] Work Phone: Erythrocyte distribution width (RBC) [Ratio] 13.9 % 11.6-14.6 [facility] Work Phone: Immature granulocytes/100 WBC (Bld) 0.300 % 0.0-0.9 [facility] Work Phone: Comment on above: IG% - Immature Granu locytes (promyelocytes, myelocytes and metamyelocytes) > 1% indicates that a LEFT SHIFT is Present. MCH (RBC) [Entitic mass] 31.9 pg 27.0-32.0 [facility] Work Phone: Nucleated RBC/100 WBC (Bld) [Ratio] 0 % 0-5 [facility] Work Phone: MCHC Auto (RBC) [Mass/Vol]on 05-28-2022 MCHC (RBC) [Mass/Vol] 32.7 g/dL 32-36 [facility] Work Phone: No Panel Informationon 05-28 Estimated GFR (MDRD) Amer 96 mL/min >60 [facility] Work Phone: Comment on above: GFR Calc Estimated GFR (MDRD) Non-Af Amer 79 mL/min >60 [facility] Work Phone: Comment on above: Non- GFR Calc Thyroid Stimulating Hormone (TSH) 1.63 uIU/mL 0.358-3.74 [facility] Work Phone: Platelets bldon 05-28-2022 Platelets (Bld) [#/Vol] 256 10*3/uL 150-450 [facility] Work Phone: Serum or plasma calcium annette urement (mass/volume)on 05-28-2022 Calcium [Mass/Vol] 9.6 mg/dL 8.5-10.1 [facility] Work Phone: Serum or plasma cholesterol in HDL measurement (mass/volume)on 05-28-2022 Cholesterol in HDL [Mass/Vol] 59 mg/dL >40 [facility] Work Phone: Comment on above: The drugs N-Acetylcy steine and Metamizole may falsely depress this assay. Reference Range HDL <40 mg/dL Low HDL Cholesterol HDL >or= 60 mg/dL High HDL Cholesterol Serum or plasma cholesterol in VLDL measurement (mass/volume)on 05-28-2022 Cholesterol in VLDL [Mass/Vol] 22 mg/dL 5-40 [facility] Work Phone: Serum or plasma creatinine m easurement (mass/volume)on 05-28-2022 Creatinine [Mass/Vol] 0.98 mg/dL 0.70-1.30 [facility] Work Phone: Comment on above: The validity of the calculated GFR & GFRAA in patients over 70 years has not been determined. Clinical correlation is essential. Serum or plasma low density lipoprotein (LDL) cholesterol measurement (mass/volume)on 05-28-2022 Cholesterol in LDL [Mass/Vol] 130 mg/dL 0-130 [facility] Work Phone: Serum or plasma urea nitroge n measurement (mass/volume)on 05-28-2022 Urea nitrogen [Mass/Vol] 22 mg/dL 7-18 [facility] Work Phone: Thin prep Papanicolaou smear with manual screeningon 05-28-2022 Thin prep Papanicolaou smear with manual screening 4 5-15 [facility] Work Phone: CNTHERAPYon 03-10-2022 CNTHERAPY OT/PT/Speech Visit ( PTWS) -- MOO HOROWITZ ([id number]) 1945 M Date Time Provider Department 03/10/22 10:45 AM CONOR WEAVER PTWS Date Time Provider Department Center 03/10/2022 10:45 AM [id number], SEAN PTWS [facility] Reason for Visit: PT Progress Note [5536] Primary Visit Diagnosis:Chronic left-sided low back pain [...] tablet by mouth once daily. - Saw Crawford 80 mg ORAL capsule Take by mouth. Takes 2 in the am and 2 in the pm. -- Normal [facility] CNTHERAPYon 03-03-2022 CNTHERAPY OT/PT/Speech Visit ( PTWS) -- MOO HOROWITZ ([id number]) 1945 M Date Time Provider Department 03/03/22 12:15 PM CONOR WEAVER PTFRANSISCO Date Time Provider Department [place] 03/03/2022 12:15 PM [id number], SEAN PTFRANSISCO [place] Reason for Visit: Physical Therapy [503] [...] tablet by mouth once daily. - Saw Crawford 80 mg ORAL capsule Take by mouth. Takes 2 in the am and 2 in the pm. -- Normal [facility] CNTHERAPYon 02-13-2022 CNTHERAPY OT/PT/Speech Visit ( PTWS) -- MOO HOROWITZ ([id number]) 1945 M Date Time Provider Department 02/13/22 10:00 AM CONOR WEAVER PTFRANSISCO Date Time Provider Department Center 02/13/2022 10:00 AM [id number], SEAN PTFRANSISCO [place] Reason for Visit: PT Eval [077] Primary Visit Diagnosis:Chronic left-sided low back pain [...] tablet by mouth once daily. - Saw Crawford 80 mg ORAL capsule Take by mouth. Takes 2 in the am and 2 in the pm. -- Letter Text Normal [facility] SARS-CoV-2,INFLUENZA A/B NUC LEI ACID TESTon 01-23-2022 EUA DISCLAIMER [facility] Comment on above: Result Comment: [...] is terminated or revoked sooner. Performed at [facility] [id number] [facility] [address] FLU A by PCR Negative [facility] FLU B by PCR Negative [facility] SARS-CoV-2 (COVID-19) RNA KATIE+probe Ql (Unsp spec) Negative Normal [facility] Bilirubin Test strip Ql (U)o n 01-17-2022 Bilirubin Ql (U) Negative Negative [facility] Work Phone: Ketones Test strip Ql (U)on 01-17-2022 Ketones Ql (U) Negative Negative [facility] Work Phone: Nitrite Test strip Ql (U)on 01-17-2022 Nitrite Ql (U) Negative Negative [facility] Work Phone: Protein Test strip Ql (U)on 01-17-2022 Protein Ql (U) Negative Negative [facility] Work Phone: Urine blood detectionon RBC Ql (U) Negative Negative [facility] Work Phone: Urine clarityon 01-17-2022 Clarity (U) Clear Clear [facility] Work Phone: Urine color determinationon 01-17-2022 Color (U) Yellow Yellow [facility] Work Phone: Urine glucose detectionon Glucose Ql (U) Normal mg/dl Normal [facility] Work Phone: Urine leukocyte esterase det ection by dipstickon 01-17-2022 Leukocyte esterase Test strip Ql (U) Negative Negative [facility] Work Phone: Urine pHon 01-17-2022 pH (U) 6.0 [pH] [facility] Work Phone: Urine specific gravity measu rementon 01-17-2022 Specific gravity (U) [Rel density] 1.020 [facility] Work Phone: Urobilinogen Auto test strip Ql (U)on 01-17-2022 Urobilinogen Ql (U) Normal mg/dl Normal [facility] Work Phone: Absolute lymphocyte counton 01-15-2022 Lymphocytes Auto (Unsp spec) [#/Vol] 1.38 10*3/uL 0.83-4.51 [facility] Work Phone: Basophil percentageon 2021 Basophils/100 WBC (Bld) 0.6 % 0-1 [facility] Work Phone: [phone] Chloride [Moles/Vol] 105 mmol/L 98-107 [facility] Work Phone: Eosinophils/100 WBC (Bld) 1.7 % 0-5 [facility] Work Phone: [phone] Glucose [Mass/Vol] 85 mg/dL 74-106 [facility] Work Phone: Neutrophils (Bld) [#/Vol] 4.2 10*3/uL 2.0-7.7 [facility] Work Phone: [phone] Neutrophils/100 WBC (Bld) 65.0 % 47-70 [facility] Work Phone: [phone] Potassium [Moles/Vol] 4.4 mmol/L 3.5-5.1 [facility] Work Phone: [phone] Sodium [Moles/Vol] 139 mmol/L 136-145 [facility] Work Phone: WBC (Bld) [#/Vol] 6.4 10*3/uL 4.4-11.0 [facility] Work Phone: Blood erythrocytes count (nu mber/volume)on 01-15-2022 RBC (Bld) [#/Vol] 4.19 10*6/uL 4.6-6.2 [facility]: Blood hemoglobin measurement (mass/volume)on 01-15-2022 Hemoglobin (Bld) [Mass/Vol] 13.4 g/dL 13.0-16.5 [facility] Work Phone: Blood lymphocytes/100 leukoc yteson 01-15-2022 Lymphocytes/100 WBC (Bld) 21.5 % 19-41 [facility] Work Phone: Blood monocytes/100 leukocyt eson 01-15-2022 Monocytes/100 WBC (Bld) 10.9 % 0-10 [facility] Work Phone: Blood platelet mean volumeon 01-15-2022 Platelet mean volume (Bld) [Entitic vol] 11.6 fL 6.2-12.0 [facility] Work Phone: Determination of erythrocyte mean corpuscular volume (MCV)on 01-15-2022 MCV (RBC) [Entitic vol] 97.1 fL 80-94 [facility] Work Phone: Hematocrit Auto (Bld) [Volum e fraction]on 01-15-2022 Hematocrit (Bld) [Volume fraction] 40.7 % 40-54 [facility] Work Phone: INR in Blood by Coagulation assayon 01-15-2022 INR Coag (Bld) [Relative time] 1.1 {INR} [facility] Work Phone: Laboratory - Chemistry and C hemistry - challengeon 01-15-2022 CO2 [Moles/Vol] 29.0 mmol/L 21.0-32.0 [facility] Work Phone: Urea nitrogen/Creatinine [Mass ratio] 23.1 mg/mg 10-20 [facility] Work Phone: Laboratory - Coagulationon 0 01-15-2022 aPTT Coag (Bld) [Time] 27.4 s 24.1-36.2 [facility] Work Phone: PT Coag (PPP) [Time] 13.9 s 11.7-14.9 [facility] Work Phone: Laboratory - Hematology and Cell countson 01-15-2022 Erythrocyte distribution width (RBC) [Entitic vol] 46.4 fL 35.1-43.9 [facility] Work Phone: Erythrocyte distribution width (RBC) [Ratio] 13.1 % 11.6-14.6 [facility] Work Phone: Immature granulocytes/100 WBC (Bld) 0.300 % 0.0-0.9 [facility] Work Phone: Comment on above: IG% - Immature Granu locytes (promyelocytes, myelocytes and metamyelocytes) > 1% indicates that a LEFT SHIFT is Present. MCH (RBC) [Entitic mass] 32.0 pg 27.0-32.0 [facility] Work Phone: Nucleated RBC/100 WBC (Bld) [Ratio] 0 % 0-5 [facility] Work Phone: MCHC Auto (RBC) [Mass/Vol]on 01-15-2022 MCHC (RBC) [Mass/Vol] 32.9 g/dL 32-36 [facility] Work Phone: No Panel Informationon 01-15 Estimated GFR (MDRD) Amer 111 mL/min >60 [facility] Work Phone: Comment on above: GFR Calc Estimated GFR (MDRD) Non-Af Amer 91 mL/min >60 [facility] Work Phone: Comment on above: Non- GFR Calc Platelets bldon 01-15-2022 Platelets (Bld) [#/Vol] 249 10*3/uL 150-450 [facility] Work Phone: Serum or plasma calcium annette urement (mass/volume)on 01-15-2022 Calcium [Mass/Vol] 8.7 mg/dL 8.5-10.1 [facility] Work Phone: Serum or plasma creatinine m easurement (mass/volume)on 01-15-2022 Creatinine [Mass/Vol] 0.86 mg/dL 0.70-1.30 [facility] Work Phone: Comment on above: The validity of the calculated GFR & GFRAA in patients over 70 years has not been determined. Clinical correlation is essential. Serum or plasma urea nitroge n measurement (mass/volume)on 01-15-2022 Urea nitrogen [Mass/Vol] 20 mg/dL 7-18 [facility] Work Phone: Thin prep Papanicolaou smear with manual screeningon 01-15-2022 Thin prep Papanicolaou smear with manual screening 5 5-15 [facility] Work Phone: Basophil percentageon 2021 Bilirubin [Mass/Vol] 0.60 mg/dL 0.20-1.00 [facility] Work Phone: Comment on above: For patients on eltr ombopag therapy, use of Dimension [employer] TBIL is not recommended. Chloride [Moles/Vol] 105 mmol/L 98-107 [facility] Work Phone: Glucose [Mass/Vol] 93 mg/dL 74-106 [facility] Work Phone: Potassium [Moles/Vol] 4.5 mmol/L 3.5-5.1 [facility] Work Phone: Protein [Mass/Vol] 6.7 g/dL 6.4-8.2 [facility] Work Phone: Sodium [Moles/Vol] 139 mmol/L 136-145 [facility] Work Phone: Laboratory - Chemistry and C hemistry - challengeon 11-13-2021 ALP [Catalytic activity/Vol] 74 U/L 45-117 [facility] Work Phone: ALT [Catalytic activity/Vol] 22 U/L 16-61 [facility] Work Phone: CO2 [Moles/Vol] 27.0 mmol/L 21.0-32.0 [facility] Work Phone: Globulin (S) [Mass/Vol] 3.0 g/dL 2.2-4.2 [facility] Work Phone: Urea nitrogen/Creatinine [Mass ratio] 23.5 mg/mg 10-20 [facility] Work Phone: No Panel Informationon 11-13 Estimated GFR (MDRD) Amer 113 mL/min >60 [facility] Work Phone: Comment on above: GFR Calc Estimated GFR (MDRD) Non-Af Amer 93 mL/min >60 [facility] Work Phone: Comment on above: Non- GFR Calc Prostate Specific Antigen Screen 1.04 ng/mL 0.00-4.00 [facility] Work Phone: Comment on above: This test was perfor med using the TPSA assay method for [employer] chemistry system. Values obtained with differentassay methods cannot be used interchangably.When changing PSA assays in the course of monitoring apatient, additional sequential testing should be carriedout to confirm baseline values. Serum or plasma albumin annette urement (mass/volume)on 11-13-2021 Albumin [Mass/Vol] 3.7 g/dL 3.2-5.0 [facility] Work Phone: Serum or plasma albumin/glob ulin mass ratioon 11-13-2021 Albumin/Globulin [Mass ratio] 1.2 {ratio} 0.9-2.4 [facility] Work Phone: Serum or plasma calcium annette urement (mass/volume)on 11-13-2021 Calcium [Mass/Vol] 9.0 mg/dL 8.5-10.1 [facility] Work Phone: Serum or plasma creatinine m easurement (mass/volume)on 11-13-2021 Creatinine [Mass/Vol] 0.85 mg/dL 0.70-1.30 [facility] Work Phone: Comment on above: The validity of the calculated GFR & GFRAA in patients over 70 years has not been determined. Clinical correlation is essential. Serum or plasma urea nitroge n measurement (mass/volume)on 11-13-2021 Urea nitrogen [Mass/Vol] 20 mg/dL 7-18 [facility] Work Phone: Thin prep Papanicolaou smear with manual screeningon 11-13-2021 Thin prep Papanicolaou smear with manual screening 22 U/L 15-37 [facility] Work Phone: Thin prep Papanicolaou smear with manual screening 7 5-15 [facility] Work Phone: Absolute lymphocyte counton 11-11-2021 Lymphocytes Auto (Unsp spec) [#/Vol] 1.08 10*3/uL 0.83-4.51 [facility] Work Phone: Basophil percentageon 2021 Basophils/100 WBC (Bld) 0.4 % 0-1 [facility] Work Phone: Chloride [Moles/Vol] 106 mmol/L 98-107 [facility] Work Phone: Eosinophils/100 WBC (Bld) 0.7 % 0-5 [facility] Work Phone: Glucose [Mass/Vol] 107 mg/dL 74-106 [facility] Work Phone: Comment on above: Fasting Glucose resu lt from 100 to 125 mg/dL suggests IMPAIRED HOMEOSTASIS per A.D.A. criteria. Neutrophils (Bld) [#/Vol] 7.1 10*3/uL 2.0-7.7 [facility] Work Phone: Neutrophils/100 WBC (Bld) 78.5 % 47-70 [facility] Work Phone: [phone] Potassium [Moles/Vol] 3.5 mmol/L 3.5-5.1 [facility] Work Phone: Sodium [Moles/Vol] 138 mmol/L 136-145 [facility] Work Phone: WBC (Bld) [#/Vol] 9.0 10*3/uL 4.4-11.0 [facility] Work Phone: Basophil percentage 0 SEEN /hpf [facility] Work Phone: Bilirubin Test strip Ql (U)o n 11-11-2021 Bilirubin Ql (U) Negative Negative [facility] Work Phone: Blood erythrocytes count (nu mber/volume)on 11-11-2021 RBC (Bld) [#/Vol] 4.42 10*6/uL 4.6-6.2 [facility] Work Phone: Blood hemoglobin measurement (mass/volume)on 11-11-2021 Hemoglobin (Bld) [Mass/Vol] 14.1 g/dL 13.0-16.5 [facility] Work Phone: Blood lymphocytes/100 leukoc yteson 11-11-2021 Lymphocytes/100 WBC (Bld) 12.0 % 19-41 [facility] Work Phone: Blood monocytes/100 leukocyt eson 11-11-2021 Monocytes/100 WBC (Bld) 8.1 % 0-10 [facility] Work Phone: Blood platelet mean volumeon 11-11-2021 Platelet mean volume (Bld) [Entitic vol] 10.9 fL 6.2-12.0 [facility] Work Phone: Determination of erythrocyte mean corpuscular volume (MCV)on 11-11-2021 MCV (RBC) [Entitic vol] 95.7 fL 80-94 [facility] Work Phone: Hematocrit Auto (Bld) [Volum e fraction]on 11-11-2021 Hematocrit (Bld) [Volume fraction] 42.3 % 40-54 [facility] Work Phone: Ketones Test strip Ql (U)on 11-11-2021 Ketones Ql (U) Negative Negative [facility] Work Phone: Laboratory - Chemistry and C hemistry - challengeon 11-11-2021 CO2 [Moles/Vol] 29.0 mmol/L 21.0-32.0 [facility] Work Phone: Urea nitrogen/Creatinine [Mass ratio] 15.4 mg/mg 10-20 [facility] Work Phone: Laboratory - Hematology and Cell countson 11-11-2021 Erythrocyte distribution width (RBC) [Entitic vol] 48.4 fL 35.1-43.9 [facility] Work Phone: Erythrocyte distribution width (RBC) [Ratio] 13.5 % 11.6-14.6 [facility] Work Phone: Immature granulocytes/100 WBC (Bld) 0.300 % 0.0-0.9 [facility] Work Phone: Comment on above: IG% - Immature Granu locytes (promyelocytes, myelocytes and metamyelocytes) > 1% indicates that a LEFT SHIFT is Present. MCH (RBC) [Entitic mass] 31.9 pg 27.0-32.0 [facility] Work Phone: Nucleated RBC/100 WBC (Bld) [Ratio] 0 % 0-5 [facility] Work Phone: MCHC Auto (RBC) [Mass/Vol]on 11-11-2021 MCHC (RBC) [Mass/Vol] 33.3 g/dL 32-36 [facility] Work Phone: Mucus LM Ql (Urine sed)on Mucus Ql (Urine sed) 2+ /hpf [facility] Work Phone: Nitrite Test strip Ql (U)on 11-11-2021 Nitrite Ql (U) Negative Negative [facility] Work Phone: No Panel Informationon 11-11 Estimated Creatinine Clearance Calc 67.86 ml/min [facility] Work Phone: Estimated GFR (MDRD) Amer 104 mL/min >60 [facility] Work Phone: Comment on above: GFR Calc Estimated GFR (MDRD) Non-Af Amer 86 mL/min >60 [facility] Work Phone: Comment on above: Non- GFR Calc Troponin I High Sensitivity 6 pg/mL 3.0-78.0 [facility] Work Phone: Comment on above: Please Note: New Patience t Units and Gender Specific Reference Ranges. For more information see Policy Stat Procedure [employer] High Sensitivity Troponin (TNIH) and attachments. Platelets bldon 11-11-2021 Platelets (Bld) [#/Vol] 206 10*3/uL 150-450 [facility] Work Phone: Protein Test strip Ql (U)on 11-11-2021 Protein Ql (U) 15 mg/dl Negative [facility] Work Phone: Serum or plasma calcium annette urement (mass/volume)on 11-11-2021 Calcium [Mass/Vol] 9.6 mg/dL 8.5-10.1 [facility] Work Phone: Serum or plasma creatinine m easurement (mass/volume)on 11-11-2021 Creatinine [Mass/Vol] 0.91 mg/dL 0.70-1.30 [facility] Work Phone: Comment on above: The validity of the calculated GFR & GFRAA in patients over 70 years has not been determined. Clinical correlation is essential. Serum or plasma urea nitroge n measurement (mass/volume)on 11-11-2021 Urea nitrogen [Mass/Vol] 14 mg/dL 7-18 [facility] Work Phone: Squamous epithelial cells de tection in urine sediment by light microscopyon 11-11-2021 Epithelial cells.squamous LM Ql (Urine sed) 0-5 SEEN /hpf [facility] Work Phone: Thin prep Papanicolaou smear with manual screeningon 11-11-2021 Thin prep Papanicolaou smear with manual screening 3 5-15 [facility] Work Phone: Urine blood detectionon 10-16 RBC Ql (U) Negative Negative [facility] Work Phone: RBC Ql (U) 0 SEEN /hpf [facility] Work Phone: Urine clarityon 11-11-2021 Clarity (U) Sl. Cloudy Clear [facility] Work Phone: Urine color determinationon 11-11-2021 Color (U) Yellow Yellow [facility] Work Phone: Urine glucose detectionon Glucose Ql (U) Normal mg/dl Normal [facility] Work Phone: Urine leukocyte esterase det ection by dipstickon 11-11-2021 Leukocyte esterase Test strip Ql (U) Negative Negative [facility] Work Phone: Urine pHon 11-11-2021 pH (U) 6.0 [pH] [facility] Work Phone: Urine sediment bacteria coun t by microscopy (number/high power field)on 11-11-2021 Bacteria LM.HPF (Urine sed) [#/Area] 0 /[HPF] None Seen [facility] Work Phone: Urine specific gravity measu rementon 11-11-2021 Specific gravity (U) [Rel density] 1.020 [facility] Work Phone: Urobilinogen Auto test strip Ql (U)on 11-11-2021 Urobilinogen Ql (U) Normal mg/dl Normal [facility] Work Phone: Final Surgical Pathology Rep [facility] 09-27-2019 Final Surgical Pathology Report . Pathology Reports Accession: Collected Date/Time: Received Date/Time: Pathologist: [id number] 09/23/2019 13:55 EST 09/26/2019 13:55 EST NYASIA ROJO MD Final Surgical Pathology Report DIAGNOSIS: SKIN, LEFT PLANTAR HEEL -- COMPOUND NEVUS. COMMENT: [facility] - A# [id number] CLINICAL INFORMATION: SKIN LESION SPECIMEN: A LESION [...] Electronically Signed by Pathology Report verified by [facility] Electronically signed by NYASIA ROJO Sign out Date: 09/27/2019 14:21 Performing Lab: [address] Normal [facility] ([place] Comment on above: Performed By: #### S PFR #### [place] [address] .Auto Diffon 12-16-2018 Ammonia (P) [Mass/Vol] 0.60 10 3/mcL Normal 0.15-1.00 [facility] ([place] Comment on above: Performed By: #### C KALA BORJA ANEU #### [place] [address] #### BMP, GFR #### [address] [address] Basophils (Bld) [#/Vol] 0.00 10 3/mcL Normal 0.00-0.19 [facility] ([place] Comment on above: Performed By: #### C KALA BORJA ANEU #### [place] [address] #### BMP, GFR #### [place] [id number] Basophils/100 WBC (Bld) 0.5 % Normal 0.0-2.5 [facility] ([place] Comment on above: Performed By: #### C KALA BORJA ANEU #### [place] [address] #### BMP, GFR #### [address] [address] Eosinophils (Bld) [#/Vol] 0.10 10 3/mcL Normal 0.00-0.40 [facility] ([place] Comment on above: Performed By: #### C BC, ADIFF, ANEU #### [address] [address] #### BMP, GFR #### [address] [address] Eosinophils/100 WBC (Bld) 2.5 % Normal 0.0-7.0 [facility] ([place]) Comment on above: Performed By: #### C BC, ADIFF, ANEU #### [address] [address] #### BMP, GFR #### [address] [address] Lymphocytes (Bld) [#/Vol] 1.50 10 3/mcL Normal 0.77-3.85 [facility] ([place]) Comment on above: Performed By: #### C BC, ADIFF, ANEU #### [place] [address] #### BMP, GFR #### [address] [address] Lymphocytes/100 WBC (Bld) 26.3 % Normal 10.0-50.0 [facility] ([place] Comment on above: Performed By: #### C BC, ADIFF, ANEU #### [address] [address] #### BMP, GFR #### [address] [address] Monocytes/100 WBC (Bld) 11.2 % Normal 1.7-13.0 [facility] ([place]) Comment on above: Performed By: #### C BC, ADIFF, ANEU #### [address] [address] #### BMP, GFR #### [address] [address] Neutrophils/100 WBC (Bld) 59.5 % Normal 37.0-80.0 [facility] ([place]) Comment on above: Performed By: #### C BC, ADIFF, ANEU #### [place] [id number] [place], [place] [address] #### BMP, GFR #### [address] [address] .GFRon 12-16-2018 GFR Non- 91 ml/min/1.73sqm Normal [facility] ([place] Comment on above: Result Comment: GFR Population [...] By: #### C BC, ADIFF, ANEU #### [address] [address] #### BMP, GFR #### [address] [address] GFR 110 ml/min/1.73sqm Normal [facility] ([place] Comment on above: Result Comment: GFR Population [...] By: #### C BC, ADIFF, ANEU #### [place] [address] #### BMP, GFR #### [address] [address] .NEUABSon 12-16-2018 Neutrophils (Bld) [#/Vol] 3.30 10 3/mcL Normal 2.85-6.16 [facility] ([place] Comment on above: Performed By: #### C BC, ADIFF, ANEU #### [place] [address] #### BMP, GFR #### [address] [address] BMPon 12-16-2018 Calcium [Mass/Vol] 8.5 mg/dL Normal 8.4-10.2 [facility] ([place]) Comment on above: Performed By: #### C BC, ADIFF, ANEU #### [place] [address] #### BMP, GFR #### [place] [address] Chloride [Moles/Vol] 104 mmol/L Normal 98-107 [facility] ([place]) Comment on above: Performed By: #### C BC, ADIFF, ANEU #### [place] [address] #### BMP, GFR #### [place] [address] CO2 [Moles/Vol] 31 mmol/L Normal 23-31 [facility] ([place] Comment on above: Performed By: #### C BC, ADIFF, ANEU #### [place] [address] #### BMP, GFR #### [place] [address] Creatinine [Mass/Vol] 0.83 mg/dL Normal 0.70-1.30 [facility] ([place]) Comment on above: Performed By: #### C BC, ADIFF, ANEU #### [place] [address] #### BMP, GFR #### [address] [address] Electrolyte Balance 6.0 mEq/L Normal [facility] ([place]) Comment on above: Performed By: #### C BC, ADIFF, ANEU #### [address] [address] #### BMP, GFR #### [address] [address] Glucose [Mass/Vol] 73 mg/dL Low 83-110 [facility] ([place]) Comment on above: Performed By: #### C BC, ADIFF, ANEU #### [address] [address] #### BMP, GFR #### [address] [address] Potassium [Moles/Vol] 4.1 mmol/L Normal 3.5-5.1 [facility] ([place]) Comment on above: Performed By: #### C ARMIDA BORJAIFF, ANEU #### [address] [address] #### BMP, GFR #### [address] [address] Sodium [Moles/Vol] 141 mmol/L Normal 136-145 [facility] ([place] Comment on above: Performed By: #### C BCARMIDAIFF, ANEU #### [address] [address] #### BMP, GFR #### [address] [address] Urea nitrogen [Mass/Vol] 20 mg/dL High 7-18 [facility] ([place] Comment on above: Performed By: #### C BC, ADIFF, ANEU #### [address] [address] #### BMP, GFR #### [address] [address] Urea nitrogen/Creatinine [Mass ratio] 24 ratio Normal 7-27 [facility] ([place] Comment on above: Performed By: #### C BC, ADIFF, ANEU #### [place] [id number] #### BMP, GFR #### [address] [address] CBCon 12-16-2018 Erythrocyte distribution width (RBC) [Ratio] 13.1 % Normal 11.5-14.5 [facility] ([place] Comment on above: Performed By: #### C BC, ADIFF, ANEU #### [place] [address] #### BMP, GFR #### [place] [address] Hematocrit (Bld) [Volume fraction] 39.5 % Low 42.0-52.0 [facility] ([place] Comment on above: Performed By: #### C BC, ADIFF, ANEU #### [place] [address] #### BMP, GFR #### [place] [address] Hemoglobin (Bld) [Mass/Vol] 13.3 G/dL Low 14.0-18.0 [facility] ([place]) Comment on above: Performed By: #### C BC, ARMIDAIFF, ANEU #### [place] [address] #### BMP, GFR #### [place] [address] MCH (RBC) [Entitic mass] 31.7 pg High 27.0-31.2 [facility] ([place] Comment on above: Performed By: #### C BC, ADIFF, ANEU #### [place] [address] #### BMP, GFR #### [place] [id number] MCHC (RBC) [Mass/Vol] 33.8 G/dL Normal 31.8-35.4 [facility] ([place]) Comment on above: Performed By: #### C BC, ADIFF, ANEU #### [place] [address] #### BMP, GFR #### [address] [address] MCV (RBC) [Entitic vol] 93.8 fL Normal 80.0-94.0 [facility] ([place] Comment on above: Performed By: #### C BC, ADIFF, ANEU #### [address] [address] #### BMP, GFR #### [address] [address] Platelet mean volume (Bld) [Entitic vol] 9.5 fL Normal 7.4-10.4 [facility] ([place] Comment on above: Performed By: #### C BC, ADIFF, ANEU #### [place] [address] #### BMP, GFR #### [address] [address] Platelets (Bld) [#/Vol] 209 10 3/mcL Normal 130-400 [facility] ([place] Comment on above: Performed By: #### C BC, ADIFF, ANEU #### [place] [address] #### BMP, GFR #### [address] [address] RBC (Bld) [#/Vol] 4.21 10 6/mcL Normal 4.04-6.13 [facility] ([place] Comment on above: Performed By: #### C BC, ADIFF, ANEU #### [place] [id number] #### BMP, GFR #### [address] [address] WBC (Bld) [#/Vol] 5.60 10 3/mcL Normal 4.60-10.80 [facility] ([place]) Comment on above: Performed By: #### C BC, ADIFF, ANEU #### [place] [id number] #### BMP, GFR #### [address] [address] Lab Report: Basic Metabolic Profile (BMP)on 02-20-2017 Anion gap 7 mmol/L Invalid Interpretation Code 5-15 [facility] Work Phone: [phone] Anion gap molar conc 7 mmol/L 5-[address] [facility] [employer] Work Phone: [phone] BUN/Creatinine Ratio 20.4 RATIO High 10-[address] [facility] Work Phone: [phone] Calcium 9.1 mg/dL Invalid Interpretation Code 8.5-10.1 [facility] Work Phone: [phone] Chloride 102 mmol/L Invalid Interpretation Code 98-107 [facility] Work Phone: [phone] CO2 29.0 mmol/L Invalid Interpretation Code 21.0-32.0 [facility] Work Phone: [phone] CO2 ppres (BldV) 29.0 mmol/L 21.0-32.0 [facility] Work Phone: [phone] Creatinine 0.88 mg/dL Invalid Interpretation Code 0.70-1.30 [facility] Work Phone: [phone] eGFR (non-black) 91 mL/min/{1.73_m2} Invalid Interpretation Code >60 [facility] Work Phone: [phone] eGFR (non-black) 110 mL/min/{1.73_m2} Invalid Interpretation Code >60 [facility] Work Phone: [phone] EST GFR - AA 110 mL/min >60 [facility] Work Phone: [phone] Glucose 84 mg/dL Invalid Interpretation Code 70-110 [facility] Work Phone: [phone] Glucose mass conc 84 mg/dL 70-110 [facility] Work Phone: [phone] Potassium 4.6 mmol/L Invalid Interpretation Code 3.5-5.1 [facility] Work Phone: [phone] Sodium 138 mmol/L Invalid Interpretation Code 136-145 [facility] Work Phone: [phone] Urea nitrogen 18 mg/dL Invalid Interpretation Code 7-18 [facility] Work Phone: [phone] Lab Report: Magnesiumon 06-0 9-2017 Magnesium 2.3 mg/dL Invalid Interpretation Code 1.8-2.4 [employer] Phone: [phone] Office Visit: [facility] 02-21-20 17 Documentation of current medications (procedure) Done Invalid Interpretation Code [facility] Work Phone: [phone] Fall risk assessment No Invalid Interpretation Code [facility] Work Phone: [phone] Protein mass conc Done [facility] Work Phone: [phone] Office Visiton 08-15-2016 Dietary management education, guidance, and counseling (procedure) yes Invalid Interpretation Code [facility] Work Phone: [phone] Documentation of current medications (procedure) Done Invalid Interpretation Code [facility] Work Phone: [phone] Tobacco smoking status NHIS Never smoker [facility] Work Phone: [phone] Tobacco use CPHS Never smoker Invalid Interpretation Code [facility] Work Phone: [phone] 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 [employer]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 Left ventricular Ejection fraction 65 % Invalid Interpretation Code [facility] Work Phone: [phone] Office Visiton 07-25-2015 cardiac risk group C Invalid Interpretation Code [facility] Work Phone: [phone] General cardiovascular disease 10Y risk [#] Duncan'Cirilo 18 % Invalid Interpretation Code [employer] Phone: [phone] Replaced Document: [employer] E CG Observationson 07-25-2015 EKG QRS axis -90 deg [facility] Work Phone: [phone] electrocardiogram interpretation Electronic ventricular pacemaker Pacemaker ECG, No further analysis Poor SNR (< 1) in leads I INSUFFICIENT DATA Invalid Interpretation Code [facility] Work Phone: [phone] GE use only - for [employer] import when terms are not otherwise specified 400 ms Invalid Interpretation Code [facility] Work Phone: [phone] Interpretation Electronic ventricul ar pacemaker Pacemaker ECG, No further analysis Poor SNR (< 1) in leads I INSUFFICIENT DATA [facility] Work Phone: [phone] P [place] 1 deg [facility] Work Phone: [phone] P wave axis, electrocardiogram 1 deg Invalid Interpretation Code [facility] Work Phone: [phone] Interval 0 ms [facility] Work Phone: [phone] AK interval, electrocardiogram 0 ms Invalid Interpretation Code [facility] Work Phone: [phone] Pulse (Heart Rate) 81 /min Invalid Interpretation Code [facility] Work Phone: [phone] QRS axis, electrocardiogram -90 deg Invalid Interpretation Code [facility] Work Phone: [phone] QRS Duration 100 ms [facility] Work Phone: [phone] QRS duration, electrocardiogram 100 ms Invalid Interpretation Code [facility] Work Phone: [phone] QT Interval new path ms [facility] Work Phone: [phone] QT interval, electrocardiogram new path ms Invalid Interpretation Code [facility] Work Phone: [phone] QTc Hernandez 400 ms [facility] Work Phone: [phone] T [place] 90 deg [facility] Work Phone: [phone] T wave axis, electrocardiogram 90 deg Invalid Interpretation Code [facility] Work Phone: [phone] 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 basophils as percent of blood leukocytes, manual count 0 % Invalid Interpretation Code [facility] Work Phone: [phone] eosinophils as percent of blood leukocytes, manual count 1 % Invalid Interpretation Code [employer] Phone: [phone] Erythrocyte distribution width (RBC) [Ratio] 46.8 % [facility] Work Phone: [phone] Erythrocytes (RBC) 5.35 10*6/uL Invalid Interpretation Code [facility] Work Phone: [phone] Hematocrit (Bld) [Volume fraction] 50.0 % [facility] Work Phone: [phone] Hematocrit (HCT) 50.0 % Invalid Interpretation Code [facility] Work Phone: [phone] Hemoglobin (Bld) [Mass/Vol] 16.4 g/dL Invalid Interpretation Code [facility] Work Phone: [phone] Lymphocytes/100 leukocytes 18 % Invalid Interpretation Code [facility] Work Phone: [phone] Lymphocytes/100 WBC (Bld) 18 % [facility] Work Phone: [phone] MCH 30.7 pg Invalid Interpretation Code [facility] Work Phone: [phone] MCH (RBC) [Entitic mass] 30.7 pg [facility] Work Phone: [phone] MCHC 32.8 g/dL Invalid Interpretation Code [facility] Work Phone: [phone] MCHC (RBC) [Mass/Vol] 32.8 g/dL [facility] Work Phone: [phone] MCV 93.5 fL Invalid Interpretation Code [facility] Work Phone: [phone] MCV (RBC) [Entitic vol] 93.5 fL [facility] Work Phone: [phone] Monocytes/100 leukocytes 10 % Invalid Interpretation Code [facility] Work Phone: [phone] Monocytes/100 WBC (Bld) 10 % [facility] Work Phone: [phone] neutrophils, band form as percent of blood leukocytes, manual count 70 % Invalid Interpretation Code [facility] Work Phone: [phone] Platelets 171 10*3/mm3 Invalid Interpretation Code [facility] Work Phone: [phone] Platelets (Bld) [#/Vol] 171 10*3/mm3 [facility] Work Phone: [phone] RBC (Bld) [#/Vol] 5.35 10*6/uL [facility] Work Phone: [phone] RDW-CA 46.8 % Invalid Interpretation Code [facility] Work Phone: [phone] WBC (Bld) [#/Vol] 10.3 10*3/uL High [facility] Work Phone: [phone] WBC (Leukocytes) 10.3 10*3/uL High [facility] Work Phone: [phone] 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 Calcium [Mass/Vol] 8.1 mg/dL [facility] Work Phone: [phone] Chloride [Moles/Vol] 106 mmol/L [facility] Work Phone: [phone] Cholesterol [Mass/Vol] 184 mg/dL Invalid Interpretation Code [facility] Work Phone: [phone] Cholesterol in HDL [Mass/Vol] 43 mg/dL Invalid Interpretation Code [facility] Work Phone: [phone] Cholesterol in LDL [Mass/Vol] 126 mg/dL Invalid Interpretation Code [facility] Work Phone: [phone] CO2 (BldV) [Partial pressure] 24 mmol/L [facility] Work Phone: [phone] Creatinine [Mass/Vol] 0.7 mg/dL [facility] Work Phone: [phone] Glucose [Mass/Vol] 95 mg/dL [facility] Work Phone: [phone] Potassium [Moles/Vol] 3.9 mmol/L [facility] Work Phone: [phone] Sodium [Moles/Vol] 139 mmol/L [facility] Work Phone: [phone] Triglyceride [Mass/Vol] 76 mg/dL Invalid Interpretation Code [facility] Work Phone: [phone] Urea nitrogen [Mass/Vol] 19 mg/dL [facility] Work Phone: [phone] 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 Albumin [Mass/Vol] 3.7 g/dL Invalid Interpretation Code [facility] Work Phone: [phone] Alkaline phosphatase (ALP) 92 U/L [facility] Work Phone: [phone] ALP (Bld) [Catalytic activity/Vol] 92 U/L [facility] Work Phone: [phone] ALT [Catalytic activity/Vol] 27 U/L Invalid Interpretation Code [facility] Work Phone: [phone] AST [Catalytic activity/Vol] 21 U/L Invalid Interpretation Code [facility] Work Phone: [phone] Bilirubin [Mass/Vol] 0.5 mg/dL Invalid Interpretation Code [facility] Work Phone: [phone] Protein [Mass/Vol] 7.0 g/dL Invalid Interpretation Code [facility] Work Phone: Vital Signs Date Time Vital Sign Value Performing Clinician Kareni daviny 06-20-2025 14:01-0400 Body height 172.[address] Paul Mac MD Work Phone: [facility] 06-20-2025 14:01-0400 Body mass index (BMI) [Ratio] 28.8 kg/m2 Dr. Paul Mac MD Work Phone: [facility] 06-20-2025 14:01-0400 Body weight 86.[address] Paul Mac MD Work Phone: [facility] 05-24-2025 14:09-0400 Body temperature 98 [degF] Dr. Paul Mac MD Work Phone: [facility] 05-24-2025 14:09-0400 Diastolic blood pressure 55 mm[Hg] Dr. Paul Mac MD Work Phone: [facility] 05-24-2025 14:09-0400 Heart rate 71 /min Dr. Paul Mac MD Work Phone: [facility] 05-24-2025 14:09-0400 Respiratory rate 18 /min Dr. Paul Mac MD Work Phone: [facility] 05-24-2025 14:09-0400 SaO2% (BldA) [Mass fraction] 96 % Dr. Paul Mac MD Work Phone: [facility] 05-24-2025 14:09-0400 Systolic blood pressure 100 mm[Hg] Dr. Paul Mac MD Work Phone: [facility] 05-23-2025 16:32-0400 Inhaled oxygen flow rate 2 L/min Dr. Paul Mac MD Work Phone: [facility] 05-23-2025 14:00-0400 Body height 172.[address] Paul Mac MD Work Phone: [facility] 05-23-2025 14:00-0400 Body mass index (BMI) [Ratio] 29.7 kg/m2 Dr. Paul Mac MD Work Phone: 4(332)807-896927 [place] [address] 05-23-2025 14:00-0400 Body weight 88.[address] Paul Mac MD Work Phone: 9(047)638-762627 [place] [address] 05-10-2025 15:36-0400 Body height 172.[address] Paul Mac MD Work Phone: 1(625)355-375557 [place] [address] 05-10-2025 15:31-0400 Body weight 86.[address] Paul Mac MD Work Phone: 8(189)180-576657 [place] [address] 05-10-2025 15:31-0400 Diastolic blood pressure 64 mm[Hg] Dr. Paul Mac MD Work Phone: 5(754)658-908957 [place] [address] 05-10-2025 15:31-0400 Heart rate 88 /min Dr. Paul Mac MD Work Phone: 2(984)424-287557 [place] [address] 05-10-2025 15:31-0400 Respiratory rate 16 /min Dr. Paul Mac MD Work Phone: 9(554)271-212657 [place] [address] 05-10-2025 15:31-0400 Systolic blood pressure 101 mm[Hg] Dr. Paul Mac MD Work Phone: 3(618)833-131957 [place] [address] 04-17-2025 13:16-0400 Body height 172.[address] Paul Mac MD Work Phone: 6(226)854-168957 [place] [address] 04-17-2025 13:16-0400 Body mass index (BMI) [Ratio] 28.8 kg/m2 Dr. Paul Mac MD Work Phone: 1(534)139-602857 [place] [address] 04-17-2025 13:16-0400 Body weight 86.[address] Paul Mac MD Work Phone: 6(376)296-629657 [place] [address] 04-12-2025 15:30-0400 Diastolic blood pressure 78 mm[Hg] Dr. Paul Mac MD Work Phone: 0(967)302-071757 [place] [address] 04-12-2025 15:30-0400 Heart rate 86 /min Dr. Paul Mac MD Work Phone: [facility] 04-12-2025 15:30-0400 Respiratory rate 18 /min Dr. Paul Mac MD Work Phone: [facility] 04-12-2025 15:30-0400 SaO2% (BldA) [Mass fraction] 97 % Dr. Paul Mac MD Work Phone: [facility] 04-12-2025 15:30-0400 Systolic blood pressure 153 mm[Hg] Dr. Paul Mac MD Work Phone: [facility] 04-12-2025 13:25-0400 Body mass index (BMI) [Ratio] 27.3 kg/m2 Dr. Paul Mac MD Work Phone: 0(652)250-471827 [place] [address] 04-12-2025 13:25-0400 Body temperature 98 [degF] Dr. Paul Mac MD Work Phone: 1(961)226-847627 [place] [address] 04-12-2025 13:25-0400 Body weight 81.[address] Paul Mac MD Work Phone: [facility] 01-18-2025 10:58-0400 Body height 172.[address] Paul Mac MD Work Phone: 2(301)845-679124 [address] 01-18-2025 10:58-0400 Body mass index (BMI) [Ratio] 28.8 kg/m2 Dr. Paul Mac MD Work Phone: [facility] 01-18-2025 10:58-0400 Body weight 86.[address] Paul Mac MD Work Phone: [facility] 01-18-2025 10:58-0400 Diastolic blood pressure 66 mm[Hg] Dr. Paul Mac MD Work Phone: [facility] 01-18-2025 10:58-0400 Heart rate 81 /min Dr. Paul Mac MD Work Phone: [facility] 01-18-2025 10:58-0400 Respiratory rate 18 /min Dr. Paul Mac MD Work Phone: [facility] 01-18-2025 10:58-0400 SaO2% (BldA) [Mass fraction] 97 % Dr. Paul Mac MD Work Phone: 1(147)760-715027 [place] [address] 01-18-2025 10:58-0400 Systolic blood pressure 107 mm[Hg] Dr. Paul Mac MD Work Phone: 5(590)542-978957 [place] [address] 10-12-2024 06:36-0500 Body height 172.[address] Paul Mac MD Work Phone: 7(205)936-365757 [place] [address] 10-12-2024 06:36-0500 Body mass index (BMI) [Ratio] 32.5 kg/m2 Dr. Paul Mac MD Work Phone: 6(831)345-061557 [place] [address] 10-12-2024 06:36-0500 Body temperature 95.8 [degF] Dr. Paul Mac MD Work Phone: 1(085)058-595157 [place] [address] 10-12-2024 06:36-0500 Body weight 97.[address] Paul Mac MD Work Phone: 9(031)421-090557 [place] [address] 10-12-2024 06:36-0500 Diastolic blood pressure 67 mm[Hg] Dr. Paul Mac MD Work Phone: 8(366)912-558557 [place] [address] 10-12-2024 06:36-0500 Heart rate 85 /min Dr. Paul Mac MD Work Phone: 9(041)230-233257 [place] [address] 10-12-2024 06:36-0500 Respiratory rate 18 /min Dr. Paul Mac MD Work Phone: 9(404)870-296957 [place] [address] 10-12-2024 06:36-0500 SaO2% (BldA) [Mass fraction] 98 % Dr. Paul Mac MD Work Phone: 8(387)136-549857 [place] [address] 10-12-2024 06:36-0500 Systolic blood pressure 110 mm[Hg] Dr. Paul Mac MD Work Phone: 9(525)994-051557 [place] [address] 11-30-2023 11:16-0400 Body temperature 97.6 [degF] Dr. Paul Mac Work Phone: [facility] 11-30-2023 11:16-0400 Diastolic blood pressure 67 mm[Hg] Dr. Paul Mac Work Phone: [facility] 11-30-2023 11:16-0400 Heart rate 69 /min Dr. Paul Mac Work Phone: [facility] 11-30-2023 11:16-0400 Respiratory rate 16 /min Dr. Paul Mac Work Phone: [facility] 11-30-2023 11:16-0400 SaO2% (BldA) [Mass fraction] 100 % Dr. Paul Mac Work Phone: [facility] 11-30-2023 11:16-0400 Systolic blood pressure 121 mm[Hg] Dr. Paul Mac Work Phone: 9(293)629-429327 [place] [address] 11-30-2023 09:20-0400 Body height 172.[address] Paul Mac Work Phone: [facility] 11-30-2023 09:20-0400 Body mass index (BMI) [Ratio] 29.6 kg/m2 Dr. Paul Mac Work Phone: [facility] 11-30-2023 09:20-0400 Body weight 88.[address] Paul Mac Work Phone: [facility] 10-08-2023 09:54-0500 Body mass index (BMI) [Ratio] 29.5 kg/m2 Dr. Paul Mac Work Phone: [facility] 10-08-2023 09:54-0500 Body temperature 97.5 [degF] Dr. Paul Mac Work Phone: 4(488)526-375727 [place] [address] 10-08-2023 09:54-0500 Body weight 88.[address] Paul Mac Work Phone: [facility] 10-08-2023 09:54-0500 Diastolic blood pressure 79 mm[Hg] Dr. Paul Mac Work Phone: [facility] 10-08-2023 09:54-0500 Heart rate 75 /min Dr. Paul Mac Work Phone: [facility] 10-08-2023 09:54-0500 Respiratory rate 18 /min Dr. Paul Mac Work Phone: [facility] 10-08-2023 09:54-0500 SaO2% (BldA) [Mass fraction] 98 % Dr. Paul Mac Work Phone: [facility] 10-08-2023 09:54-0500 Systolic blood pressure 127 mm[Hg] Dr. Paul Mac Work Phone: 7(539)015-182427 [place] [address] 09-23-2023 13:26-0500 Body mass index (BMI) [Ratio] 29.5 kg/m2 Dr. Paul Mac Work Phone: 4(280)110-568324 [address] 09-23-2023 13:26-0500 Body weight 87.[address] Paul Mac Work Phone: 7(786)896-409527 [place] [address] 09-23-2023 13:26-0500 Diastolic blood pressure 76 mm[Hg] Dr. Paul Mac Work Phone: 3(119)400-422227 [place] [address] 09-23-2023 13:26-0500 Heart rate 87 /min Dr. Paul Mac Work Phone: [facility] 09-23-2023 13:26-0500 Respiratory rate 17 /min Dr. Paul Mac Work Phone: [facility] 09-23-2023 13:26-0500 SaO2% (BldA) [Mass fraction] 98 % Dr. Paul Mac Work Phone: [facility] 09-23-2023 13:26-0500 Systolic blood pressure 122 mm[Hg] Dr. Paul Mac Work Phone: [facility] 09-23-2023 10:55-0500 Body mass index (BMI) [Ratio] 29.5 kg/m2 Dr. Paul Mac Work Phone: [facility] 09-23-2023 10:55-0500 Body weight 87.[address] Paul Mac Work Phone: [facility] 09-23-2023 10:55-0500 Diastolic blood pressure 61 mm[Hg] Dr. Paul Mac Work Phone: [facility] 09-23-2023 10:55-0500 Heart rate 86 /min Dr. Paul Mac Work Phone: [facility] 09-23-2023 10:55-0500 Respiratory rate 16 /min Dr. Paul Mac Work Phone: [facility] 09-23-2023 10:55-0500 Systolic blood pressure 104 mm[Hg] Dr. Paul Mac Work Phone: [facility] 08-17-2023 10:51-0500 Body height 172.[address] Paul Mac Work Phone: [facility] 08-17-2023 10:51-0500 Body weight 87.[address] Paul Mac Work Phone: [facility] 08-14-2023 09:58-0500 Body mass index (BMI) [Ratio] 29.2 kg/m2 Dr. Paul Mac Work Phone: [facility] 07-16-2023 14:39-0400 Body height 172.[address] Paul Mac Work Phone: [facility] 07-16-2023 14:39-0400 Body mass index (BMI) [Ratio] 29.2 kg/m2 Dr. Paul Mac Work Phone: [facility] 07-16-2023 14:39-0400 Body weight 87.[address] Paul Mac Work Phone: [facility] 07-16-2023 14:39-0400 Diastolic blood pressure 71 mm[Hg] Dr. Paul Mac Work Phone: [facility] 07-16-2023 14:39-0400 Heart rate 83 /min Dr. Paul Mac Work Phone: [facility] 07-16-2023 14:39-0400 Respiratory rate 16 /min Dr. Paul Mac Work Phone: [facility] 07-16-2023 14:39-0400 Systolic blood pressure 124 mm[Hg] Dr. Paul Mac Work Phone: [facility] 12-25-2022 15:45-0400 Body height 172.[address] Paul Mac Work Phone: [facility] 12-25-2022 15:45-0400 Body mass index (BMI) [Ratio] 28.8 kg/m2 Dr. Paul Mac Work Phone: [facility] 12-25-2022 15:45-0400 Body weight 86.[address] Paul Mac Work Phone: [facility] 12-25-2022 15:45-0400 Diastolic blood pressure 76 mm[Hg] Dr. Paul Mac Work Phone: [facility] 12-25-2022 15:45-0400 Heart rate 82 /min Dr. Paul Mac Work Phone: [facility] 12-25-2022 15:45-0400 Respiratory rate 16 /min Dr. Paul Mac Work Phone: [facility] 12-25-2022 15:45-0400 Systolic blood pressure 122 mm[Hg] Dr. Paul Mac Work Phone: [facility] 07-03-2022 11:13-0400 Body height 172.[address] Paul Mac Work Phone: [facility] Work Phone: 07-03-2022 11:08-0400 Body mass index (BMI) [Ratio] 29.7 kg/m2 Dr. Paul Mac Work Phone: [facility] Work Phone: 07-03-2022 11:08-0400 Body weight 88.[address] Paul Mac Work Phone: [facility] Work Phone: 07-03-2022 11:08-0400 Diastolic blood pressure 77 mm[Hg] Dr. Paul Mac Work Phone: [facility] Work Phone: 07-03-2022 11:08-0400 Heart rate 70 /min Dr. Paul Mac Work Phone: [facility] Work Phone: 07-03-2022 11:08-0400 Respiratory rate 14 /min Dr. Paul Mac Work Phone: [facility] Work Phone: 07-03-2022 11:08-0400 Systolic blood pressure 131 mm[Hg] Dr. Paul Mac Work Phone: [facility] Work Phone: 06-09-2022 10:56-0400 Body height 172.[address] Paul aMc Work Phone: [facility] Work Phone: 02-12-2022 13:51-0400 Body mass index (BMI) [Ratio] 29.8 kg/m2 Dr. Paul Mac Work Phone: [facility] Work Phone: 02-12-2022 13:51-0400 Body temperature 97.3 [degF] Dr. Paul Mac Work Phone: [facility] Work Phone: 02-12-2022 13:51-0400 Body weight 89.[address] Paul Mac Work Phone: [facility] Work Phone: 02-12-2022 13:51-0400 Diastolic blood pressure 77 mm[Hg] Dr. Paul Mac Work Phone: [facility] Work Phone: 02-12-2022 13:51-0400 Heart rate 82 /min Dr. Paul Mac Work Phone: [facility] Work Phone: 02-12-2022 13:51-0400 Respiratory rate 17 /min Dr. Paul Mac Work Phone: [facility] Work Phone: 02-12-2022 13:51-0400 SaO2% (BldA) [Mass fraction] 98 % Dr. Paul Mac Work Phone: [facility] Work Phone: 02-12-2022 13:51-0400 Systolic blood pressure 132 mm[Hg] Dr. Paul Mac Work Phone: [facility] Work Phone: 12-25-2021 13:48-0400 Body height 172.[address] Joaquin Melo Work Phone: [facility] Work Phone: 12-25-2021 13:48-0400 Body weight 89.[address] Joaquin Melo Work Phone: [facility] Work Phone: 12-25-2021 13:48-0400 Diastolic blood pressure 82 mm[Hg] Dr. Joaquin Melo Work Phone: [facility] Work Phone: 12-25-2021 13:48-0400 Heart rate 82 /min Dr. Joaquin Melo Work Phone: [facility] Work Phone: 12-25-2021 13:48-0400 Respiratory rate 16 /min Dr. Joaquin Melo Work Phone: [facility] Work Phone: 12-25-2021 13:48-0400 SaO2% (BldA) [Mass fraction] 97 % Dr. Joaquin Melo Work Phone: [facility] Work Phone: 12-25-2021 13:48-0400 Systolic blood pressure 142 mm[Hg] Dr. Joaquin Melo Work Phone: [facility] Work Phone: 11-11-2021 12:19-0500 Diastolic blood pressure 78 mm[Hg] Dr. Joaquin Melo Work Phone: [facility] Work Phone: 11-11-2021 12:19-0500 Heart rate 73 /min Dr. Joaquin Melo Work Phone: [facility] Work Phone: 11-11-2021 12:19-0500 Respiratory rate 14 /min Dr. Joaquin Melo Work Phone: [facility] Work Phone: 11-11-2021 12:19-0500 SaO2% (BldA) [Mass fraction] 97 % Dr. Joaquin Melo Work Phone: [facility] Work Phone: 11-11-2021 12:19-0500 Systolic blood pressure 136 mm[Hg] Dr. Joaquin Melo Work Phone: [facility] Work Phone: 11-11-2021 09:30-0500 Body mass index (BMI) [Ratio] 28.1 kg/m2 Dr. Joaquin Melo Work Phone: [facility] Work Phone: 11-11-2021 09:30-0500 Body temperature 95.8 [degF] Dr. Joaquin Melo Work Phone: [facility] Work Phone: 11-11-2021 09:30-0500 Body weight 83.[address] Joaquin Melo Work Phone: [facility] Work Phone: 11-08-2021 13:34-0500 Diastolic blood pressure 78 mm[Hg] Dr. Joaquin Melo Work Phone: [facility] Work Phone: 11-08-2021 13:34-0500 Heart rate 82 /min Dr. Joaquin Melo Work Phone: [facility] Work Phone: 11-08-2021 13:34-0500 Respiratory rate 16 /min Dr. Joaquin Melo Work Phone: [facility] Work Phone: 11-08-2021 13:34-0500 SaO2% (BldA) [Mass fraction] 100 % Dr. Joaquin Melo Work Phone: [facility] Work Phone: 11-08-2021 13:34-0500 Systolic blood pressure 146 mm[Hg] Dr. Joaquin Melo Work Phone: [facility] Work Phone: 11-08-2021 10:53-0500 Body mass index (BMI) [Ratio] 27.8 kg/m2 Dr. Joaquin Melo Work Phone: [facility] Work Phone: 11-08-2021 10:53-0500 Body temperature 96.9 [degF] Dr. Joaquin Melo Work Phone: [facility] Work Phone: 11-08-2021 10:53-0500 Body weight [address] Joaquin Melo Work Phone: [facility] Work Phone: 03-28-2021 13:14-0400 Body mass index (BMI) [Ratio] 27.8 kg/m2 Dr. Joaquin Melo Work Phone: [facility] Work Phone: 02-20-2017 07:53-0400 BMI (Body Mass Index) 27.52 kg/m2 Stacy Mina PA-C [facility] Work Phone: 02-20-2017 07:53-0400 BP Diastolic 72 mm[Hg] Stacy Mina PA-C [facility] Work Phone: 02-20-2017 07:53-0400 BP Systolic 130 mm[Hg] Stacy Mina PA-C [facility] Work Phone: 02-20-2017 07:53-0400 Height 172.72 cm Stacy Mina PA-C [facility] Work Phone: 02-20-2017 07:53-0400 Pulse (Heart Rate) 68 /min Stacy Mina PA-C [facility] Work Phone: 02-20-2017 07:53-0400 Respiratory Rate 16 /min Stacy Mina PA-C [facility] Work Phone: 02-20-2017 07:53-0400 Weight 82.1 kg Stacy Mina PA-C [facility] Work Phone: 08-15-2016 09:50-0500 BMI (Body Mass Index) 29.19 kg/m2 [facility] Work Phone: 08-15-2016 09:50-0500 Body weight 87.09 kg Harumi DeFinis [facility] Work Phone: 08-15-2016 09:50-0500 BP Diastolic 68 mm[Hg] Harumi DeFinis [facility] Work Phone: 08-15-2016 09:50-0500 BP Systolic 128 mm[Hg] Harumi DeFinis [facility] Work Phone: 08-15-2016 09:50-0500 BSA (Body Surface Area) 2.01 m2 Harumi DeFinis [facility] Work Phone: 08-15-2016 09:50-0500 Height 172.72 cm Harumi DeFinis [facility] Work Phone: 08-15-2016 09:50-0500 Pulse (Heart Rate) 80 /min Harumi DeFinis [facility] Work Phone: 08-15-2016 09:50-0500 Respiratory Rate 18 /min [facility] [employer] Work Phone: 08-15-2016 09:50-0500 Weight 87.09 kg Stacy Mina PA-C [facility] Work Phone: 07-25-2015 14:21-0500 Heart rate 81 /min [facility] Work Phone: Encounters Encounter Date Encounter Type Care Provider Facility Start: 07-13-2025 ambulatory Paul Mac Facility:[facility] Start: 07-03-2025 ambulatory Beth Gunderson Facility:[facility] Start: 06-20-2025 End: 06-20-2025 Patient encounter procedure Sharon MÉNDEZ -[facility] Work Phone: Start: 06-20-2025 End: 06-20-[address] Paul Mac MD Work Phone: -[facility] Start: 06-19-2025 Registered Recurring Beth MALDONADO -Physical Therapy Work Phone: Start: 06-14-2025 Encounter for other preprocedural examination [facility] Start: 06-13-2025 End: 06-13-2025 Patient encounter procedure Sharon MÉNDEZ -[facility] Work Phone: Start: 06-13-2025 End: 06-13-[address] Paul Mac MD Work Phone: -[facility] Start: 06-06-2025 End: 06-06-2025 Patient encounter procedure Beth MALDONADO -[facility] Work Phone: Start: 06-06-2025 End: 06-06-[address] Paul Mac MD Work Phone: -[facility] Start: 05-26-2025 End: 05-26-[address] Paul Mac MD Work Phone: [facility] Start: 05-26-2025 End: 05-26-[address] Donald Burt MD -[facility] Work Phone: Start: 05-24-2025 Non-patient / Non-visit Dr. Sonam Kaminski MD -[facility] Work Phone: Start: 05-24-2025 End: 05-24-[address] Paul Mac MD Work Phone: -[facility] Start: 05-24-2025 End: 05-24-2025 Patient encounter procedure Sharon Velia -[facility] Work Phone: Start: 05-23-2025 Non-patient / Non-visit Dr. Ric HALL -[facility] Work Phone: Start: 05-23-2025 ambulatory Lino Kaminski Fac ility:[facility] Start: 05-23-2025 End: 05-24-2025 Evaluation and management of inpatient Dr. Johann Andrews MD -[facility] Work Phone: Start: 05-23-2025 Non-patient / Non-visit Dr. Johann hawkins MD -[facility] Start: 05-23-2025 ambulatory [facility] Facility:[facility] Start: 05-17-2025 Encounter for other preprocedural examination [facility] Start: 05-17-2025 Admission to [facility] Dr[facility] Johann Andrews MD -[facility] Start: 05-17-2025 ambulatory [facility] Facility:[facility] Start: 05-12-2025 End: 05-12-[address] Johann Andrews MD -[facility] Work Phone: Start: 05-12-2025 End: 05-12-[address] Paul Mac MD Work Phone: -[facility] Start: 05-11-2025 End: 05-11-[address] Paul Mac MD Work Phone: [facility] Start: 05-11-2025 End: 05-11-[address] Paul Mac MD -Laboratory [facility] Start: 05-11-[address] 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 Paul Mac MD Work Phone: -[facility] Start: 05-10-2025 End: 05-10-2025 Patient encounter procedure Joaquin Landon James - -[facility] Work Phone: Start: 04-20-2025 Encounter for preprocedural laboratory examination [facility] Start: 04-17-2025 End: 04-17-2025 Patient encounter procedure Beth MALDONADO -[facility] Work Phone: Start: 04-17-2025 End: 04-17-[address] Paul Mac MD Work Phone: [facility] Start: 04-12-2025 End: 04-12-[address] Paul Mac MD Work Phone: -Radiology [facility] Start: 04-12-2025 End: 04-12-[address] Shalom Barraza MD -Radiology [facility] Work Phone: Start: 04-12-2025 End: 04-12-2025 ambulatory Paul Mac Facility:[facility] Start: 03-16-2025 End: 03-16-2025 Patient encounter procedure Beth MALDONADO -[facility] Work Phone: Start: 03-16-2025 End: 03-16-[address] Paul Mac MD Work Phone: [facility] Start: 02-24-2025 End: 02-24-[address] Paul Mac MD Work Phone: [facility] Work Phone: Start: 02-24-2025 End: 02-24-2025 Patient encounter procedure Dr. Donald Burt MD -[facility] Work Phone: Start: 01-18-2025 End: 01-18-[address] Paul Mac MD Work Phone: [facility] Work Phone: Start: 01-18-2025 End: 01-18-[address] Donald Burt MD -[facility] Work Phone: Start: 12-12-2024 End: 12-12-[address] Paul Mac MD Work Phone: [facility] Work Phone: Start: 12-12-2024 End: 12-12-[address] Paul Mac MD -[facility] Work Phone: Start: 12-12-2024 End: 12-12-2024 ambulatory Paul Mac Facility:[facility] Start: 12-03-2024 End: 12-03-2024 ambulatory Paul Mac Facility:[facility] Start: 12-03-2024 End: 12-03-[address] Donald Burt MD -[facility] Work Phone: Start: 11-25-2024 End: 11-25-2024 ambulatory Paul Mac Facility:[facility] Start: 11-25-2024 End: 11-25-[address] Donald Burt MD -[facility] Work Phone: Start: 10-12-2024 End: 10-12-2024 Patient encounter procedure VANDA Asher [facility] Work Phone: Start: 10-12-2024 End: 10-12-2024 ambulatory Paul Mac Facility:[facility] Start: 08-26-2024 End: 08-26-2024 ambulatory Donald Burt Facility:[facility] Start: 08-26-2024 End: 08-26-[address] Donald Burt MD -[facility] Work Phone: Start: 07-28-2024 End: 07-28-2024 ambulatory Paul Mac Facility:[facility] Start: 07-20-2024 End: 07-20-2024 ambulatory Donald Burt Facility:[facility] Start: 11-30-2023 End: 11-30-[address] Paul Mac Work Phone: [facility] Work Phone: Start: 11-30-2023 End: 11-30-[address] Paul Mac Work Phone: [facility] Start: 11-30-2023 Non-patient / Non-visit Dr. Erica Mac Work Phone: [facility] Start: 11-30-2023 End: 11-30-2023 Admission to same day surgery center Dr. Paul Mac Work Phone: [facility]-Endoscopy Work Phone: Start: 11-30-2023 End: 11-30-[address] Paul Mac Work Phone: [facility] Work Phone: Start: 10-08-2023 End: 10-08-[address] Paul Mac Work Phone: [facility]-P[facility] Work Phone: Start: 10-07-2023 Non-patient / Non-visit Dr. Erica Mac Work Phone: [facility] Start: 10-07-2023 End: 10-07-[address] Paul Mac Work Phone: [facility]-Cardiovascula r Services Work Phone: Start: 09-23-2023 End: 09-23-[address] Paul Mac Work Phone: [facility] Work Phone: Start: 09-23-2023 End: 09-23-[address] Paul Mac Work Phone: [facility] Work Phone: Start: 08-21-2023 End: 08-21-[address] Paul Mac Work Phone: [facility] Work Phone: Start: 08-17-2023 End: 08-17-2023 Admission to same day surgery center Dr. Paul Mac Work Phone: [facility]-Facepiece Line Supervisor/Special Procedures Work Phone: Start: 08-17-2023 End: 08-17-[address] Paul Mac Work Phone: [facility] Work Phone: Start: 08-14-2023 End: 08-14-[address] Paul Mac Work Phone: [facility] Work Phone: Start: 07-23-2023 Non-patient / Non-visit Dr. Erica Mac Work Phone: [facility] Start: 07-16-2023 End: 07-16-[address] Paul Mac Work Phone: [facility] Work Phone: Start: 07-16-2023 End: 07-16-[address] Paul Mac Work Phone: [facility] Work Phone: Start: 07-16-2023 End: 07-16-[address] Paul Mac Work Phone: [facility] Start: 09-25-[address] Paul cullen Work Phone: [facility] Work Phone: Start: 05-13-2023 End: 05-13-[address] Paul Mac Work Phone: [facility] Work Phone: Start: 01-14-2023 End: 01-14-[address] Paul Mac Work Phone: [facility] Work Phone: Start: 01-14-2023 End: 01-14-[address] Paul Mac Work Phone: [facility] Start: 12-25-2022 End: 12-25-[address] Paul Mac Work Phone: [facility] Start: 12-24-2022 End: 12-24-[address] Paul Mac Work Phone: [facility] Start: 07-26-2022 End: 07-26-[address] Paul Mac Work Phone: [facility] Start: 07-03-2022 End: 07-03-[address] Paul Mac Work Phone: [facility] Start: 06-25-2022 End: 06-25-[address] Paul Mac Work Phone: [facility] Start: 06-20-2022 End: 06-20-[address] Paul Mac Work Phone: [facility] Work Phone: Start: 06-20-2022 End: 06-20-[address] Paul Mac Work Phone: [facility] Start: 06-11-2022 End: 06-11-[address] Paul Mac Work Phone: [facility] Start: 06-09-2022 End: 06-09-[address] Paul Mac Work Phone: [facility] Start: 05-28-2022 End: 05-28-[address] Paul Mac Work Phone: [facility] Work Phone: Start: 05-28-2022 End: 05-28-[address] Paul Mac Work Phone: [facility] Start: 05-06-2022 End: 05-06-[address] Paul Mac Work Phone: [facility] Work Phone: Start: 05-06-2022 End: 05-06-[address] 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 Paul Mac Work Phone: [facility] Start: 01-17-[address] Joaquin Melo Work Phone: [facility] Start: 01-15-2022 End: 01-15-[address] Joaquin Melo Work Phone: [facility] Start: 01-01-2022 Non-patient / Non-visit Dr. Jessica Melo Work Phone: [facility] Start: 01-01-[address] Joaquin pratt Work Phone: [facility]-Cardiovascula r Services Start: 12-25-2021 End: 12-25-[address] Joaquin Melo Work Phone: [facility] Start: 12-25-[address] Karie Melo Work Phone: [facility] Start: 12-25-[address] Paul chen MD Work Phone: [facility] Start: 12-25-2021 End: 12-25-2021 Admission to same day surgery center Dr. Joaquin Melo Work Phone: [facility] Start: 12-25-2021 End: 12-25-[address] Joaquin Melo Work Phone: [facility] Start: 11-13-2021 End: 11-13-[address] Joaquin Melo Work Phone: [facility] Start: 11-11-2021 End: 11-11-2021 Emergency department patient visit Dr. Joaquin Melo Work Phone: [facility]-Emergency Department Start: 11-08-2021 End: 11-08-[address] Joaquin Melo Work Phone: [facility]-Radiology, [facility] Start: 10-11-2021 End: 01-28-[address] Joaquin Melo Work Phone: [facility]-Radiology, [facility] Start: 11-29-2020 End: 11-29-[address] DARLENE VYAS [facility] Start: 11-01-2020 End: 11-01-2020 ambulatory [facility] Procedures Date Procedure Procedure Detail Performing Clinician Start: 06-06-2025 Radex spine lumbosac ral 2/[address] Paul Mac MD Work Phone: Start: 05-24-[address] Paul Mac MD Work Phone: Start: 05-24-2025 X-ray of lumbar spin e, two or three views Dr. Paul Mac MD Work Phone: Start: 05-23-2025 Fluoroscopic guidance Glenis Mac MD Work Phone: Start: 05-23-[address] Kerry Mac MD Work Phone: Start: 05-23-2025 X-ray of lumbar spin e, two or three views Dr. Paul Mac MD Work Phone: Start: 05-17-2025 Hepatitis A virus an tibody, total measurement Dr. Paul Mac MD Work Phone: Comment on above: Comment: [...] HAVtotal antibody results to IgM (e.g., panel #[id number] HAVAntibody w/ Rfx).Performed at: [address] [id number] Director: Amauri Butt PhD, Phone: [phone] Start: 05-17-2025 Hepatitis C antibody measurement Dr. 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 Mina PA-C Work Phone: Start: 02-20-2017 [...] months Sweetie Lopez Start: 08-15-2016 End: 08-15-2016 MMM Donald Burt MD Start: 06-11-2016 End: 02-04-2017 [...] Donald dejesus MD Start: 02-14-2016 End: 02-14-2016 [employer]CHANT PATROLL[employer] Stacy Mina PA-C Work Phone: Start: 02-14-2016 [...] Treatment Date Care Activity Detail Author Start: 06-13-2025 End: 06-13-2025 Patient encounter procedure Status post lumbar spinal fusion -[facility] Work Phone: Start: 05-24-2025 Patient discharge [facility] Start: 05-24-2025 Application of device [facility] Start: 05-24-2025 Measuring intake and output [facility] Start: 05-24-2025 Catheterization of vein [facility] Start: 05-24-2025 Measuring intake and output [facility] Start: 05-24-2025 Incentive spirometry [facility] Start: 05-24-2025 Measuring intake and output [facility] Start: 05-23-2025 Measuring intake and output [facility] Start: 05-23-2025 Following clinical pathway protocol [facility] Start: 05-23-2025 End: 05-23-2025 Incentive spirometry [facility] Start: 05-23-2025 Application of device [facility] Start: 05-23-2025 Measuring intake and output [facility] Start: 05-23-2025 End: 05-23-2025 [facility] Start: 05-23-2025 Consultation [facility] Start: 05-23-2025 Admission procedure [facility] Start: 05-23-2025 Assessment of risk of venous thromboembolism [facility] Start: 05-23-2025 Following clinical pathway protocol [facility] Start: 05-23-2025 Introduction of urinary catheter [facility] Start: 05-23-2025 Neurovascular assessment [facility] Start: 05-23-2025 Patient education [facility] Start: 05-23-2025 Provision of activity privileges [facility] Start: 05-23-2025 Referral for physical therapy [facility] Start: 05-23-2025 Referral to occupational therapist [facility] Start: 05-23-2025 Referral to service [facility] Start: 05-23-2025 Taking patient vital signs [facility] Start: 05-23-2025 X-ray of lumbar spine, two or three views Lumbar Spine 2 or 3 Views [facility] Start: 05-23-2025 XR Lumbar spine 2 or 3 Views [facility] Start: 05-17-2025 Nasal Screen MRSA/MSSA Nasal Screen MRSA/MSSA [facility] Start: 05-10-2025 End: 05-10-2025 Evaluation of diagnostic study results [facility] Start: 04-12-2025 Computerized axial tomography of lumbar spine with contrast Spine Lumbar WITH Contrast [facility] Start: 04-12-2025 CT Lumbar spine W contrast IV [facility] Start: 11-30-2023 Patient discharge [facility] Start: 08-17-2023 Patient discharge [facility] Start: 09-14-2021 ADVANCE DIRECTIVE DISCUSSION ADVANCE DIRECTIVE DISCUSSION [facility] Start: 09-24-2017 End: 09-24-2017 Appointment Appointment [facility] Work Phone: Start: 04-13-2017 End: 04-13-2017 Appointment Appointment [facility] Work Phone: Start: 04-13-2017 End: 04-13-2017 Follow Up Appt 3 months Follow Up Appt 3 months [facility] Work Phone: Start: 04-13-2017 End: 04-13-2017 Pacer Clinic [facility] Work Phone: Start: 04-10-2017 End: 04-10-2017 Appointment Appointment [facility] Work Phone: Start: 02-20-2017 End: 02-20-2017 Appointment Appointment [facility] Work Phone: Start: 02-20-2017 End: 02-20-2017 *BMP *BMP [facility] Work Phone: Start: 02-20-2017 End: 02-20-2017 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 [facility] Work Phone: Start: 02-20-2017 End: 02-20-2017 Follow Up Appt 6 months Follow Up Appt 6 months [facility] Work Phone: Start: 02-20-2017 End: 02-20-2017 Magnesium *Magnesium [facility] Work Phone: Start: 12-31-2016 End: 02-04-2017 Follow Up Appt 3 months Follow Up Appt 3 months [facility] Work Phone: Start: 12-31-2016 [...] [facility] Work Phone: Start: 08-15-2016 End: 08-15-2016 MMM MMM [facility] Work Phone: Start: 06-11-2016 End: 02-04-2017 Follow Up Appt 3 months Follow Up Appt 3 months [facility] Work Phone: Start: 06-11-2016 End: 02-04-2017 Pacer [facility] Pacer [facility] Work Phone: Start: 06-06-2016 End: 06-06-2016 X-ray exam of hand X-Ray, Hand [facility] Work Phone: Start: 03-05-2016 End: 03-20-2016 Follow Up Appt 3 months Follow Up Appt 3 months [facility] Work Phone: Start: 03-05-2016 End: 03-20-2016 Pacer Clinic [facility] Work Phone: Start: 02-14-2016 End: 02-14-2016 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 [facility] Work Phone: Start: 02-14-2016 End: 02-14-2016 Echocardiography Echocardiogram (complete) [facility] Work Phone: Start: 02-14-2016 End: 02-14-2016 Follow Up Appt 6 months Follow Up Appt 6 months [facility] Work Phone: Start: 11-30-2015 End: 01-29-2016 Follow Up Appt 3 months Follow Up Appt 3 months [facility] Work Phone: Start: 11-30-2015 End: 01-29-2016 Pacer Clinic Pacer Clinic [facility] Work Phone: Start: 08-27-2015 End: 01-29-2016 Follow Up Appt 3 months Follow Up Appt 3 months [facility] Work Phone: Start: 08-27-2015 End: 01-29-2016 Pacer Clinic Pacer Clinic [facility] Work Phone: Start: 08-02-2015 End: 01-29-2016 Follow Up Appt 1 month Follow Up Appt 1 month [facility] Work Phone: Start: 08-02-2015 End: 01-29-2016 Pacer Clinic Pacer Clinic [facility] Work Phone: Start: 07-31-2015 End: 01-29-2016 Nuclear stress test -Lexiscan Nuclear stress test -Lexiscan [facility] Work Phone: Start: 07-25-2015 End: 01-29-2016 Device Interrogation Device Interrogation [facility] Work Phone: Start: 07-25-2015 End: 01-29-2016 Electrocardiogram, complete EKG (In office) [facility] Work Phone: Start: 07-25-2015 End: 01-29-2016 Follow Up Appt 6 months Follow Up Appt 6 months [facility] Work Phone: Start: 07-25-2015 End: 01-29-2016 MMM MMM [facility] Work Phone: Start: 2011 PNEUMOCOCCAL: 65+ (1 - PCV) PNEUMOCOCCAL: 65+ (1 - PCV) [facility] Start: 01-17-1996 SHINGRIX VACCINE (1 of 2) SHINGRIX VACCINE (1 of 2) [facility] Start: 1991 DIABETES SCREEN DIABETES SCREEN [facility] Start: 1965 Urine microalbumin profile DTAP,TDAP,TD (1 - Tdap) [facility] Start: 01-17-1964 HEPATITIS C SCREENING HEPATITIS C SCREENING [facility] Start: 1958 Adult depression screening assessment DEPRESSION SCREENING [facility] Ankle brachial press ure index [facility] Work Phone: Blood chemistry [facility] Complete blood count [facility] Complete blood count [facility] Hepatitis A virus Ab [Presence] in Serum [facility] Methicillin resistan t Staphylococcus aureus screening test [facility] Partial thromboplast in time, activated [facility] Patient Education [facility] Work Phone: Patient referral [facility] Work Phone: Prothrombin time [facility] Prothrombin time [facility] Replacement of elect ronic heart device, pulse generator [facility] Urinalysis complete panel - Urine [facility] US Carotid arteries [facility] Work Phone: XR Chest PA and Lateral [facility] Payers Date Payer Category Payer Self-pay [id number] 2023 Private Health Insurance [facility] [id number] 2014 Private Health Insurance [employer] MEDICARE SUPPLEMENT [id number] 2014-Present [phone] [address] [address] [place] [address] Indemnity [id number] 2011 Medicare MEDICARE MEDICAR E A AND B [id number] 2011-Present [phone] [place] [address] Medicare [id number] 2011 Medicare [id number] 1945 Unknown [id number] 2.16.840.1.469149.3.579 .2.651 1945 Unknown [id number] 2.16.840.1.129424.3.579 .2.651 Unknown [id number] 2.16.840.1.691676.3.579 .2.462 Unknown [id number] 2.16.840.1.707685.3.579 .2.462 Unknown [id number] 2.16.840.1.731777.3.579 .2.462 Unknown [id number] 2.16.840.1.254984.3.579 .2.462 Unknown [id number] 2.16.840.1.723070.3.579 .2.462 Unknown [id number] 2.16.840.1.382572.3.579 .2.462 Unknown [id number] 2.16.840.1.255312.3.579 .2.462 Unknown [id number] 2.16.840.1.151646.3.579 .2.462 Unknown [id number] 2.16.840.1.130588.3.579 .2.462 Unknown [id number] 2.16.840.1.709687.3.579 .2.462 Unknown [id number] 2.16.840.1.990145.3.579 .2.462 Unknown [id number] 2.16.840.1.938712.3.579 .2.462 Unknown [id number] 2.16.840.1.520572.3.579 .2.462 Unknown [id number] 2.16.840.1.879533.3.579 .2.462 Unknown [id number] 2.16.840.1.592032.3.579 .2.462 Unknown [id number] 2.16.840.1.897108.3.579 .2.462 Unknown [id number] 2.16.840.1.686725.3.579 .2.462 Unknown [id number] 2.16.840.1.611826.3.579 .2.462 Unknown [id number] 2..840.1.042666.3.579 .2.462 Unknown [id number] 2.840.1.534567.3.579 .2.462 Unknown [id number] 2.840.1.064445.3.579 .2.462 Unknown [id number] 2.840.1.870313.3.579 .2.462 Unknown [id number] 2.840.1.949885.3.579 .2.462 Unknown [id number] 2.840.1.526600.3.579 .2.462 Unknown [id number] 2.840.1.711131.3.579 .2.462 Unknown [id number] 2.840.1.628939.3.579 .2.462 Unknown [id number] 2.840.1.862302.3.579 .2.462 Unknown [id number] 2.840.1.478657.3.579 .2.462 Unknown [id number] 2.840.1.974639.3.579 .2.462 Unknown [id number] 2.840.1.176468.3.579 .2.462 Unknown [id number] 2.840.1.055527.3.579 .2.462 Unknown [id number] 2.840.1.955039.3.579 .2.462 Unknown [id number] 2.840.1.700548.3.579 .2.462 Unknown [id number] 2.840.1.629162.3.579 .2.462 Unknown [id number] 2.16.840.1.568408.3.579 .2.462 Social History Date Type Detail Facility Start: 12-25-2021 End: 11-27-2023 Tobacco smoking status NHIS Unknown if ever smoked [facility] Start: 1945 Sex Assigned At Male [facility] Start: 05-19-2024 End: 05-16-2025 Tobacco smoking status NHIS Never smoked tobacco [facility] Start: 04-08-2019 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) [facility] Start: 1945 Sex Assigned At Not on file [facility] Start: 02-21-2022 End: 03-10-2022 Exposure to SARS-CoV-2 (event) Not sure [facility] Start: 12-14-2024 Sex Male (finding) [facility] Sex Male [facility] Medical Equipment Procedure Code Equipment Code Equipment Original Text Equipment Identifier Dates Fusion, spine, lumbar, 360 degree, starting in supine position transitioning to prone [id number] CAGE FDA Start: 05-23-2025 Fusion, spine, lumbar, 360 degree, starting in supine position transitioning to prone SET SCREW FDA Start: 05-23-2025 Fusion, spine, lumbar, 360 degree, starting in supine position transitioning to prone VIPER PRIME SCREW FDA Start: 05-23-2025 Fusion, spine, lumbar, 360 degree, starting in supine position transitioning to prone VIPER PRIME SCREW FDA Start: 05-23-2025 Fusion, spine, lumbar, 360 degree, starting in supine position transitioning to prone VIPER PRIME SCREW FDA Start: 05-23-2025 Fusion, spine, lumbar, 360 degree, starting in supine position transitioning to prone VIPER PRIME SCREW FDA Start: 05-23-2025 Fusion, spine, lumbar, 360 degree, starting in supine position transitioning to prone WASHER FDA Start: 05-23-2025 Fusion, spine, lumbar, 360 degree, starting in supine position transitioning to prone Ligation clip, metallic [id number] FDA Start: 05-23-2025 Fusion, spine, lumbar, 360 degree, starting in supine position transitioning to prone Gelatin haemostatic agent [id number] FDA Start: 05-23-2025 Fusion, spine, lumbar, 360 degree, starting in supine position transitioning to prone BONE,30CC CRUSH CANC FDA Start: 05-23-2025 Fusion, spine, lumbar, 360 degree, starting in supine position transitioning to prone BONE,CRUSHED CANCELLOUS 15CC FDA Start: 05-23-2025 Fusion, spine, lumbar, 360 degree, starting in supine position transitioning to prone COLLEEN FDA Start: 05-23-2025 Fusion, spine, lumbar, 360 degree, starting in supine position transitioning to prone COLLEEN FDA Start: 05-23-2025 Fusion, spine, lumbar, 360 degree, starting in supine position transitioning to prone SCREW FDA Start: 05-23-2025 Fusion, spine, lumbar, 360 degree, starting in supine position transitioning to prone SET SCREW FDA Start: 05-23-2025 Fusion, spine, lumbar, 360 degree, starting in supine position transitioning to prone SET SCREW FDA Start: 05-23-2025 Fusion, spine, lumbar, 360 degree, starting in supine position transitioning to prone SET SCREW FDA Start: 05-23-2025 Fusion, spine, lumbar, 360 degree, starting in supine position transitioning to prone [id number] CAGE FDA Start: 05-23-2025 Fusion, spine, lumbar, 360 degree, starting in supine position transitioning to prone SET SCREW FDA Start: 05-23-2025 Fusion, spine, lumbar, 360 degree, starting in supine position transitioning to prone VIPER PRIME SCREW FDA Start: 05-23-2025 Fusion, spine, lumbar, 360 degree, starting in supine position transitioning to prone VIPER PRIME SCREW FDA Start: 05-23-2025 Fusion, spine, lumbar, 360 degree, starting in supine position transitioning to prone VIPER PRIME SCREW FDA Start: 05-23-2025 Fusion, spine, lumbar, 360 degree, starting in supine position transitioning to prone VIPER PRIME SCREW FDA Start: 05-23-2025 Fusion, spine, lumbar, 360 degree, starting in supine position transitioning to prone WASHER FDA Start: 05-23-2025 Fusion, spine, lumbar, 360 degree, starting in supine position transitioning to prone BONE,30CC CRUSH CANC FDA Start: 05-23-2025 Fusion, spine, lumbar, 360 degree, starting in supine position transitioning to prone BONE,CRUSHED CANCELLOUS 15CC FDA Start: 05-23-2025 Fusion, spine, lumbar, 360 degree, starting in supine position transitioning to prone COLLEEN FDA Start: 05-23-2025 Fusion, spine, lumbar, 360 degree, starting in supine position transitioning to prone COLLEEN FDA Start: 05-23-2025 Fusion, spine, lumbar, 360 degree, starting in supine position transitioning to prone SCREW FDA Start: 05-23-2025 Fusion, spine, lumbar, 360 degree, starting in supine position transitioning to prone SET SCREW FDA Start: 05-23-2025 Fusion, spine, lumbar, 360 degree, starting in supine position transitioning to prone SET SCREW FDA Start: 05-23-2025 Fusion, spine, lumbar, 360 degree, starting in supine position transitioning to prone SET SCREW FDA Start: 05-23-2025 Fusion, spine, lumbar, 360 degree, starting in supine position transitioning to prone [id number] CAGE FDA Start: 05-23-2025 Fusion, spine, lumbar, 360 degree, starting in supine position transitioning to prone SET SCREW FDA Start: 05-23-2025 Fusion, spine, lumbar, 360 degree, starting in supine position transitioning to prone VIPER PRIME SCREW FDA Start: 05-23-2025 Fusion, spine, lumbar, 360 degree, starting in supine position transitioning to prone VIPER PRIME SCREW FDA Start: 05-23-2025 Fusion, spine, lumbar, 360 degree, starting in supine position transitioning to prone VIPER PRIME SCREW FDA Start: 05-23-2025 Fusion, spine, lumbar, 360 degree, starting in supine position transitioning to prone VIPER PRIME SCREW FDA Start: 05-23-2025 Fusion, spine, lumbar, 360 degree, starting in supine position transitioning to prone WASHER FDA Start: 05-23-2025 Fusion, spine, lumbar, 360 degree, starting in supine position transitioning to prone BONE,30CC CRUSH CANC FDA Start: 05-23-2025 Fusion, spine, lumbar, 360 degree, starting in supine position transitioning to prone BONE,CRUSHED CANCELLOUS 15CC FDA Start: 05-23-2025 Fusion, spine, lumbar, 360 degree, starting in supine position transitioning to prone COLLEEN FDA Start: 05-23-2025 Fusion, spine, lumbar, 360 degree, starting in supine position transitioning to prone COLLEEN FDA Start: 05-23-2025 Fusion, spine, lumbar, 360 degree, starting in supine position transitioning to prone SCREW FDA Start: 05-23-2025 Fusion, spine, lumbar, 360 degree, starting in supine position transitioning to prone SET SCREW FDA Start: 05-23-2025 Fusion, spine, lumbar, 360 degree, starting in supine position transitioning to prone SET SCREW FDA Start: 05-23-2025 Fusion, spine, lumbar, 360 degree, starting in supine position transitioning to prone SET SCREW FDA Start: 05-23-2025 Fusion, spine, lumbar, 360 degree, starting in supine position transitioning to prone [id number] CAGE FDA Start: 05-23-2025 Fusion, spine, lumbar, 360 degree, starting in supine position transitioning to prone SET SCREW FDA Start: 05-23-2025 Fusion, spine, lumbar, 360 degree, starting in supine position transitioning to prone VIPER PRIME SCREW FDA Start: 05-23-2025 Fusion, spine, lumbar, 360 degree, starting in supine position transitioning to prone VIPER PRIME SCREW FDA Start: 05-23-2025 Fusion, spine, lumbar, 360 degree, starting in supine position transitioning to prone VIPER PRIME SCREW FDA Start: 05-23-2025 Fusion, spine, lumbar, 360 degree, starting in supine position transitioning to prone VIPER PRIME SCREW FDA Start: 05-23-2025 Fusion, spine, lumbar, 360 degree, starting in supine position transitioning to prone WASHER FDA Start: 05-23-2025 Fusion, spine, lumbar, 360 degree, starting in supine position transitioning to prone BONE,30CC CRUSH CANC FDA Start: 05-23-2025 Fusion, spine, lumbar, 360 degree, starting in supine position transitioning to prone BONE,CRUSHED CANCELLOUS 15CC FDA Start: 05-23-2025 Fusion, spine, lumbar, 360 degree, starting in supine position transitioning to prone COLLEEN FDA Start: 05-23-2025 Fusion, spine, lumbar, 360 degree, starting in supine position transitioning to prone COLLEEN FDA Start: 05-23-2025 Fusion, spine, lumbar, 360 degree, starting in supine position transitioning to prone SCREW FDA Start: 05-23-2025 Fusion, spine, lumbar, 360 degree, starting in supine position transitioning to prone SET SCREW FDA Start: 05-23-2025 Fusion, spine, lumbar, 360 degree, starting in supine position transitioning to prone SET SCREW FDA Start: 05-23-2025 Fusion, spine, lumbar, 360 degree, starting in supine position transitioning to prone SET SCREW FDA Start: 05-23-2025 Fusion, spine, lumbar, 360 degree, starting in supine position transitioning to prone [id number] CAGE FDA Start: 05-23-2025 Fusion, spine, lumbar, 360 degree, starting in supine position transitioning to prone SET SCREW FDA Start: 05-23-2025 Fusion, spine, lumbar, 360 degree, starting in supine position transitioning to prone VIPER PRIME SCREW FDA Start: 05-23-2025 Fusion, spine, lumbar, 360 degree, starting in supine position transitioning to prone VIPER PRIME SCREW FDA Start: 05-23-2025 Fusion, spine, lumbar, 360 degree, starting in supine position transitioning to prone VIPER PRIME SCREW FDA Start: 05-23-2025 Fusion, spine, lumbar, 360 degree, starting in supine position transitioning to prone VIPER PRIME SCREW FDA Start: 05-23-2025 Fusion, spine, lumbar, 360 degree, starting in supine position transitioning to prone WASHER FDA Start: 05-23-2025 Fusion, spine, lumbar, 360 degree, starting in supine position transitioning to prone BONE,30CC CRUSH CANC FDA Start: 05-23-2025 Fusion, spine, lumbar, 360 degree, starting in supine position transitioning to prone BONE,CRUSHED CANCELLOUS 15CC FDA Start: 05-23-2025 Fusion, spine, lumbar, 360 degree, starting in supine position transitioning to prone COLLEEN FDA Start: 05-23-2025 Fusion, spine, lumbar, 360 degree, starting in supine position transitioning to prone COLLEEN FDA Start: 05-23-2025 Fusion, spine, lumbar, 360 degree, starting in supine position transitioning to prone SCREW FDA Start: 05-23-2025 Fusion, spine, lumbar, 360 degree, starting in supine position transitioning to prone SET SCREW FDA Start: 05-23-2025 Fusion, spine, lumbar, 360 degree, starting in supine position transitioning to prone SET SCREW FDA Start: 05-23-2025 Fusion, spine, lumbar, 360 degree, starting in supine position transitioning to prone SET SCREW FDA Start: 05-23-2025 Fusion, spine, lumbar, 360 degree, starting in supine position transitioning to prone [id number] CAGE FDA Start: 05-23-2025 Fusion, spine, lumbar, 360 degree, starting in supine position transitioning to prone SET SCREW FDA Start: 05-23-2025 Fusion, spine, lumbar, 360 degree, starting in supine position transitioning to prone VIPER PRIME SCREW FDA Start: 05-23-2025 Fusion, spine, lumbar, 360 degree, starting in supine position transitioning to prone VIPER PRIME SCREW FDA Start: 05-23-2025 Fusion, spine, lumbar, 360 degree, starting in supine position transitioning to prone VIPER PRIME SCREW FDA Start: 05-23-2025 Fusion, spine, lumbar, 360 degree, starting in supine position transitioning to prone VIPER PRIME SCREW FDA Start: 05-23-2025 Fusion, spine, lumbar, 360 degree, starting in supine position transitioning to prone WASHER FDA Start: 05-23-2025 Fusion, spine, lumbar, 360 degree, starting in supine position transitioning to prone BONE,30CC CRUSH CANC FDA Start: 05-23-2025 Fusion, spine, lumbar, 360 degree, starting in supine position transitioning to prone BONE,CRUSHED CANCELLOUS 15CC FDA Start: 05-23-2025 Fusion, spine, lumbar, 360 degree, starting in supine position transitioning to prone COLLEEN FDA Start: 05-23-2025 Fusion, spine, lumbar, 360 degree, starting in supine position transitioning to prone COLLEEN FDA Start: 05-23-2025 Fusion, spine, lumbar, 360 degree, starting in supine position transitioning to prone SCREW FDA Start: 05-23-2025 Fusion, spine, lumbar, 360 degree, starting in supine position transitioning to prone SET SCREW FDA Start: 05-23-2025 Fusion, spine, lumbar, 360 degree, starting in supine position transitioning to prone SET SCREW FDA Start: 05-23-2025 Fusion, spine, lumbar, 360 degree, starting in supine position transitioning to prone SET SCREW FDA Start: 05-23-2025 Identification International consul ta jig and 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-p pacemaker FDA Start: 07-13-2015 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 Start: 07-13-2015 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 Start: 07-13-2015 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 Start: 07-13-2015 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 Start: 07-13-2015 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 Start: 07-13-2015 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 Start: 07-13-2015 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 Start: 07-13-2015 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 Start: 07-13-2015 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 Start: 07-13-2015 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 Start: 07-13-2015 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 Start: 07-13-2015 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 Start: 07-13-2015 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 Start: 07-13-2015 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 Start: 07-13-2015 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 Start: 07-13-2015 medtronic kendy mathur jig and 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-p pacemaker FDA Start: 07-13-2015 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 Start: 07-13-2015 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 Start: 07-13-2015 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 Start: 07-13-2015 ([id number]) Cardiac resynchronization therapy implantable pacemaker [id number] FDA Start: 08-17-2023 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 Start: 07-13-2015 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 Start: 07-13-2015 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 Start: 07-13-2015 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 Start: 07-13-2015 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 Start: 07-13-2015 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 Start: 07-13-2015 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 Start: 07-13-2015 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 Start: 07-13-2015 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 Start: 07-13-2015 medtronic consul ta jig and 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-p pacemaker FDA Start: 07-13-2015 medtronic consul ta jig and 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-p pacemaker FDA Start: 07-13-2015 medtronic consul ta jig and 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-p pacemaker FDA Start: 07-13-2015 medtronic consul ta jig and 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-p pacemaker FDA Start: 07-13-2015 medtronic consul ta jig and 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-p pacemaker FDA Start: 07-13-2015 medtronic consul ta jig and 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-p pacemaker FDA Start: 07-13-2015 medtronic consul ta jig and 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-p pacemaker FDA Start: 07-13-2015 medtronic consul ta jig and 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-p pacemaker FDA Start: 07-13-2015 medtronic consul ta jig and 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-p pacemaker FDA Start: 07-13-2015 medtronic consul ta jig and 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-p pacemaker FDA Start: 07-13-2015 medtronic consul ta jig and 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-p pacemaker FDA Start: 07-13-2015 medtronic consul ta jig and 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-p pacemaker FDA Start: 07-13-2015 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 Start: 07-13-2015 medtronic kedny ta jig and 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-p pacemaker FDA Start: 07-13-2015 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 Start: 07-13-2015 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 Start: 07-13-2015 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 Start: 07-13-2015 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 Start: 07-13-2015 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 Start: 07-13-2015 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 Start: 07-13-2015 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 Start: 07-13-2015 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 Start: 07-13-2015 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 Start: 07-13-2015 medtronic consul ta jig and 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-p pacemaker FDA Start: 07-13-2015 medtronic consul ta jig and 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-p pacemaker FDA Start: 07-13-2015 medtronic consul ta jig and 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-p pacemaker FDA Start: 07-13-2015 medtronic consul ta jig and 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-p pacemaker FDA Start: 07-13-2015 medtronic consul ta jig and 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-p pacemaker FDA Start: 07-13-2015 medtronic consul ta jig and 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-p pacemaker FDA Start: 07-13-2015 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 Start: 07-13-2015 medtronic consul ta jig and 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-p pacemaker FDA Start: 07-13-2015 medtronic consul ta jig and 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-p pacemaker FDA Start: 07-13-2015 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 Start: 07-13-2015 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 Start: 07-13-2015 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 Start: 07-13-2015 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 Start: 07-13-2015 medtronic kendy mathur jig and 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-p pacemaker FDA Start: 07-13-2015 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 Start: 07-13-2015 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 Start: 07-13-2015 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 Start: 07-13-2015 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 Start: 07-13-2015 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 Start: 07-13-2015 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 Start: 07-13-2015 medtronic kendy mathur jig and 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-p pacemaker FDA Start: 07-13-2015 medtronic kendy mathur jig and 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-p pacemaker FDA Start: 07-13-2015 medtronic kendy mathur jig and 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-p pacemaker FDA Start: 07-13-2015 medtronic kendy mathur jig and 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-p pacemaker FDA Start: 07-13-2015 medtronic kendy mathur jig and 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-p pacemaker FDA Start: 07-13-2015 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 Start: 07-13-2015 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 Start: 07-13-2015 medtronic kendy mathur jig and 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-p pacemaker FDA Start: 07-13-2015 medtronic kendy mathur jig and 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-p pacemaker FDA Start: 07-13-2015 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 Start: 07-13-2015 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 Start: 07-13-2015 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 Start: 07-13-2015 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 Start: 07-13-2015 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 Start: 07-13-2015 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 Start: 07-13-2015 Goals Date Patient Goal Desired Activity /State Functional Status Date Assessment Result Facility 05-24-2025 Functional status Ambulates [facility] Work Phone: Mental Status Date Assessment Result Facility 05-24-2025 [facility] function [facility]: 04-12-2025 Cognitive function Awake;Alert;Appropriat e [facility] Work Phone: 11-30-2023 Cognitive function Voice/Name;Touch/Jdki ng [facility] Work Phone: 11-11-2021 Cognitive function Level Of Cons ciousness Awake;Alert;Appropriate;Follo ws Commands [facility] Work Phone: 11-08-2021 Cognitive function Voice/Name [facility] Work Phone: Clinical Notes 07-13-2015 to 06-13-2025 Note Date & Type Note Facility 06-13-2025 Progress note [facility] 06-13-2025 Progress note Note Date/Time June 13, 2025 2:59pm [facility] [address] [place] [address] [place] [id number] OFFICE VISIT Date of Service: 06/13/25 MR#: [id number] Acct: [id number] Name: MOO HOROWITZ Rep #: [id number] : 1945 Provider: HONEY Jorgensen Age/Sex: 80/M Location: [facility] Status: Signed Intake Vital Signs 3 05/23/25 14:00 Height 5 ft 8 in Intake Visit Reasons: LUMBAR SPINE Chief Complaint: incision check Is patient in pain?: Yes (lumbar spine ) Pain scale (1-10): 5 Allergies diltiazem Adverse Reaction (Intermediate, Verified 06/13/25 14:32) Facial flushing and fatigue prednisone Adverse Reaction (Mild, Verified 06/13/25 14:32) Other carvedilol (From Coreg) Adverse Reaction (Verified 06/13/25 14:32) face tingling Medications 3 ?Medication ?Instructions ?Recorded ?Confirmed ?Type ipratropium bromide 21 mcg (0.03 2 spray intranasal DA PAULIE CONGESTION 09/23/23 06/13/25 History %) nasal spray metoprolol succinate 50 mg 50 mg PO BID HEART RATE #60 tabs 01/18/25 06/13/25 Rx tablet,extended release 24 hr apixaban 5 mg tablet (Eliquis) 5 mg PO BID BLOOD THINN ER #60 tabs 03/27/25 06/13/25 Rx losartan 25 mg tablet 25 mg PO QHS HTN 05/10/25 History rosuvastatin 20 mg tablet 20 mg PO QODAY HLD 05/16/25 06/13/25 History acetaminophen 500 mg tablet 1,000 mg (2 x 500 mg) PO Q 8 #30 05/24/25 06/13/25 Rx tabs tramadol 50 mg tablet 50 mg PO TID PRN pain #21 ta bs 06/06/25 06/13/25 Rx alprazolam 0.5 mg tablet 0.5 mg PO QHS PRN anxiety 06/13/25 History losartan 50 mg tablet 50 mg PO .COMPLEX HTN #180 t abs 06/07/25 06/13/25 Rx cyclobenzaprine 5 mg tablet 5 mg PO BID PRN 06/13/25 0 06/13/25 History Have you fallen in the past year?: Yes [facility] Medical History Ambulates with cane High cholesterol Gastric reflux [...] provided and the decisions made by me, HONEY Medellin 06/13/25 2823. Part of today?s visit was documented by Jennifer Harden RN, acting as scribe. MOO HOROWITZ is a 80 year old M here today for incision check. He is s/p L4-5 posterior spine instrumented fusion, dos 05/23/25. He only took three days of the Cephalexin because it upset his stomach. He has not noticed any further drainageat the incision site. He is keeping the incision covered with a bandaid. Agree with above. Patient is accompanied by his who is assisting in caringfor the wounds. Patient and state incision is improving, decreased rednessand no reported drainage. Continue with twice daily Betadine paints and dressings. ROS Const All systems reviewed & are unremarkable except as noted in H and other (A&O x 3,no apparent distress. No recent illness.) ENT Denies dizziness Card Denies chest pain, Denies dyspnea and Denies edema Resp Denies cough, Denies dyspnea and Reports other (No recent URI) GI Reports system reviewed and no additional complaints, except as documented, Denies nausea and Denies vomiting Musc Reports as per HPI and Reports back pain Details: Back stiffness, improving since surgery Neuro No dizziness and Yes other Psych Reports system reviewed and no additional complaints, except as documented Mychal/Lymph Denies easy bleeding and Denies easy bruising Ortho Exam General General: Yes no acute distress and Yes well groomed Neurologic: Yes alert and Yes oriented x3 Psychologic: Yes reasonable and appropriate Exam Narrative Assessment of wounds as follows: Left abdominal wound well-approximated, no surrounding erythema or swelling, no drainage Left lower lumbar wound: Moderate amount of lifting adhesive remains. Site was gently cleansed with ChloraPrep and approximately 3/4 of the glue removed. Small amount remaining to distal wound remains intact Right lower lumbar wound: Mild amount of lifting of adhesive remains site was gently cleansed with ChloraPrep and approximately 3/4 glue to distal wound easily removed. Remaining glue firmly adhered. Mepilex border dressing applied over incisions site and 3 abrasions (consistent with medical adhesive-related skin injury from adhesive bandages to sandra incision region) Supplemental Info Coding Level of Care Code Global Post Op Diagnoses Status post lumbar spinal fusion Z98.1 Unspecified contact dermatitis due to other agents L25.8 Assessment and Plan Assessment and Plan (1) Status post lumbar spinal fusion: Status: Acute Plan: We discussed daily and as needed soap and water cleansing of incision sites. Small bottle chlorhexidine provided for use on healing lumbar wounds, advised touse soft washcloth or gauze for gentle friction to assist with removal of remaining adhesive at the incision site, do not pull. Allow to air dry and cover as needed if drainage continues or if wearing pants that rub on that area. Mepilex border dressing or foam dressing recommended over the next week to avoid further skin irritation from the adhesive from bandages. Instructed to continue to monitor for any increased redness, drainage, swelling,pain to the site, fever or chills. Continue previously recommended restrictions and keep PT eval appointment as scheduled. Follow-up in approximately 1 week for wound check, sooner for changes or concerns This document has been transcribed using [employer] dictation software. There may beincorrect words, spelling, and punctuation. (2) Unspecified contact dermatitis due to other agents: Status: Acute Plan: Same as above Clinical Quality Measures Falls Risk Screening/Assistive Devices Have you fallen in the past year?: Yes 06/13/25 1306 <Electronically signed by Sharon MÉNDEZ> Date _ Sharon Forbes Signature: Date (if applicable) CC: ~ [facility] Work Phone: 1(319) 556-192809-23-2025 Progress [facility] [address] [place] [id number] OFFICE VISIT Date of Service: 06/06/25 MR#: [id number] Acct: [id number] Name: MOO HOROWITZ Rep #: [id number] : 1945 Provider: ERICA Carvalho Age/Sex: 80/M Location: [facility] Status: Signed Intake Vital Signs 3 04/17/25 13:16 05/23/25 14:00 Height 5 ft 8 in 5 ft 8 in Intake Visit Reasons: lumbar spine Allergies diltiazem Adverse Reaction (Intermediate, Verified 06/06/25 14:02) Facial flushing and fatigue prednisone Adverse Reaction (Mild, Verified 06/06/25 14:02) Other carvedilol (From Coreg) Adverse Reaction (Verified 06/06/25 14:02) face tingling Medications 3 ?Medication ?Instructions ?Recorded ?Confirmed ?Type alprazolam 0.5 mg tablet 0.5 mg PO QHS anxiety 12/06/ 06/06/25 History ipratropium bromide 21 mcg (0.03 2 spray intranasal DA PAULIE CONGESTION 09/23/23 06/06/25 History %) nasal spray metoprolol succinate 50 mg 50 mg PO BID HEART RATE #60 tabs 01/18/25 06/06/25 Rx tablet,extended release 24 hr apixaban 5 mg tablet (Eliquis) 5 mg PO BID BLOOD THINN ER #60 tabs 03/27/25 06/06/25 Rx Held on 05/24/25. Instructions: Resume on 05/25/25. losartan 25 mg tablet 25 mg PO QHS HTN 05/10/25 History losartan 50 mg tablet 50 mg PO BID HTN 05/10/25 History rosuvastatin 20 mg tablet 20 mg PO QODAY HLD 05/16/25 06/06/25 History simethicone 250 mg capsule (Gas-X) 250 mg PO DAILY PRN abdominal 05/16/25 06/06/25 History distention acetaminophen 500 mg tablet 1,000 mg (2 x 500 mg) PO Q 8 #30 05/24/25 06/06/25 Rx tabs methocarbamol 500 mg tablet 750 mg (1.5 x 500 mg) PO T ID PRN 05/24/25 06/06/25 Rx pain/spasms #60 tabs cephalexin 500 mg capsule 500 mg PO BID #14 caps 06/0606/06/25 Rx tramadol 50 mg tablet 50 mg PO TID PRN pain #21 ta bs 06/06/25 06/06/25 Rx Have you fallen in the past year?: Yes PFSH Medical History Ambulates with cane High cholesterol Gastric reflux [...] the decisions made by me, ERICA Carvalho 06/06/25 7269. Part of today?s visit was documentedby Kathy BRONSON, acting as scribe. MOO HOROWITZ is a 80 year old M here today for 2 week post op, L4-5 posterior spine instrumented fusion, dos 05/23/25. He states that he is doing well but is still having pain. He is taking tramadol and the methocarbamol for pain. He is currently taking the Tramadol 3 times a day but would like to know if he is ableto take it more than 3 times a day. He rates his pain today an 8/10. Patient is ambulating with a walker. Says that he has also been taking Tylenol as needed for his pain. He denies any fevers or chills. Ortho Exam General General: Yes no acute distress Neurologic: Yes alert and Yes oriented x3 Psychologic: Yes reasonable and appropriate Spine SPINE TESTING CERVICAL THORACIC LUMBAR Musculoskeletal Strength 0=absent - 5=normal Details: Neurological examination of the lower extremities shows grade 4 left dorsiflexion, this has been animprovement since before surgery which was grade 3. All other muscle groups show 5 power. Normal sensation across all dermatomes. Steri-Strips were removed from the belly incision. Belly incision wasdry, no discharge noticed. Back incisions show left incision dry and healing well, right back incision shows some continued drainage and redness. Incision was cleaned and covered with a Band-Aid today. Belly incision and leftback incision were left open. See attached image. Supplemental Info Coding Level of Care Code Global Post Op Diagnoses Status post lumbar spinal fusion Z98.1 Assessment and Plan Assessment and Plan (1) Status post lumbar spinal fusion: Status: Acute Orders: Orders 2 Lumbar Spine 2 or 3 Views Today Z98.1 - Arthrodesis status Referrals 2 Physical Therapy Referral Z98.1 - Arthrodesis status Medications: New 2 cephalexin take 1 capsule twice a day 500 mg PO BID 14 caps 0RF tramadol 50 mg PO TID PRN 21 tabs 0RF pain Plan Obtained and reviewed x-rays today in the clinic. Independent interpretation ofthe x-rays was performed. Lumbar x-rays show hardware and bone graft in good position. Patient is now 2 weeks out L4-5 fusion. The right back incision shows some discharge with redness around the incision, a prescription for Keflex 500 mg twice a day for a week is sent. Recommend that the patient also do twice daily Betadine cleanings with dry Band-Aid changes. Recommend that the patient follow- up in a week for an incision check. He will let us know sooner if there is any changes. A refill of the tramadol 50 mg is sent. Discussed that after this refill no more can be sent. Encouraged the patient to rely more heavily onthe muscle relaxer and the Tylenol than the tramadol. He will start outpatient physical therapy at [facility]. Continue restrictions no bending, lifting, twisting greater than a gallon of milk. Follow-up next week for an incision check and then he will follow-up in 4 weeks for 6-week postop with Dr. Andrews. Sooner if needed for any new or worsening issues. Patient is in agreement to the plan. Clinical Quality Measures Falls Risk Screening/Assistive Devices Have you fallen in the past year?: Yes 06/06/25 1458 PA> Date _ Beth MALDONADO Cosigner Signature: Date (if applicable) CC: ~ [facility]09-23-2025 Radiology Diagnostic study note [facility] Imaging Services [address] [place] [address] [id number] Lumbar Spine 2 or 3 Views MR#: [id number] Acct: [id number] Name: MOO HOROWITZ Rep #: [id number] : 1945 M 80 From: Chad Saab MD PCP: Dr. Paul Mac MD Status: DEP A MB Study:Lumbar Spine 2 or 3 Views Date of Exam: 06/06/25 Exam# [id number] Ordering Dr: Augusto Gunderson PROCEDURE: LUMBAR SPINE 2 OR 3 VIEWS 06/06/2025 REASON FOR EXAM: S/P LUMBAR FUSION TECHNIQUE: Procedure Code: RADSPLL Modality: DX Procedure: LUMBAR SPINE 2 OR 3 VIEWS COMPARISON: 05/24/2025. FINDINGS: L4-5 posterior fusion. Moderate degenerative changes of the non fused levels. Vertebral body heights are maintained. No evidence of acute fracture. Grade 1 retrolisthesis of L2 on L3 and L3 on L4. RAD/Lumbar Spine 2 or 3 Views IMPRESSION: As above. Reading Location: [id number] CC: ERICA Carvalho; Dr. Paul Mac MD ~ Rental Counter Clerk: Signed [facility]09-23-2025 Progress note Author Beth Gunderson [facility] Note Date/Time June 06, 2025 2:47pm [facility] [address] [place] [address] [address] [place] [address] OFFICE VISIT Date of Service: 06/06/25 MR#: [id number] Acct: [id number] Name: MOO HOROWITZ Rep #: [id number] : 1945 Provider: ERICA Carvalho Age/Sex: 80/M Location: [facility] Status: Signed Intake Vital Signs 3 04/17/25 13:16 05/23/25 14:00 Height 5 ft 8 in 5 ft 8 in Intake Visit Reasons: lumbar spine Allergies diltiazem Adverse Reaction (Intermediate, Verified 06/06/25 14:02) Facial flushing and fatigue prednisone Adverse Reaction (Mild, Verified 06/06/25 14:02) Other carvedilol (From Coreg) Adverse Reaction (Verified 06/06/25 14:02) face tingling Medications 3 ?Medication ?Instructions ?Recorded ?Confirmed ?Type alprazolam 0.5 mg tablet 0.5 mg PO QHS anxiety 06/06/25 History ipratropium bromide 21 mcg (0.03 2 spray intranasal [facility] 09/23/23 06/06/25 History %) nasal spray metoprolol succinate 50 mg 50 mg PO BID HEART RATE #60 tabs 01/18/25 06/06/25 Rx tablet,extended release 24 hr apixaban 5 mg tablet (Eliquis) 5 mg PO BID BLOOD THINN ER #60 tabs 03/27/25 06/06/25 Rx Held on 05/24/25. Instructions: Resume on 05/25/25. losartan 25 mg tablet 25 mg PO QHS HTN 05/10/25 History losartan 50 mg tablet 50 mg PO BID HTN 05/10/25 History rosuvastatin 20 mg tablet 20 mg PO QODAY HLD 05/16/25 06/06/25 History simethicone 250 mg capsule (Gas-X) 250 mg PO DAILY PRN abdominal 05/16/25 06/06/25 History distention acetaminophen 500 mg tablet 1,000 mg (2 x 500 mg) PO Q 8 #30 05/24/25 06/06/25 Rx tabs methocarbamol 500 mg tablet 750 mg (1.5 x 500 mg) PO T ID PRN 05/24/25 06/06/25 Rx pain/spasms #60 tabs cephalexin 500 mg capsule 500 mg PO BID #14 caps 06/0606/06/25 Rx tramadol 50 mg tablet 50 mg PO TID PRN pain #21 ta bs 06/06/25 06/06/25 Rx Have you fallen in the past year?: Yes PFSH Medical History Ambulates with cane High cholesterol Gastric reflux [...] the decisions made by , ERICA Carvalho 06/06/25 2142. Part of today?s visit was documentedby Kathy BRONSON, acting as scribe. MOO HOROWITZ is a 80 year old M here today for 2 week post op, L4-5 posterior spine instrumented fusion, dos 05/23/25. He states that he is doing well but is still having pain. He is taking tramadol and the methocarbamol for pain. He is currently taking the Tramadol 3 times a day but would like to know if he is ableto take it more than 3 times a day. He rates his pain today an 8/10. Patient is ambulating with a walker. Says that he has also been taking Tylenol as needed for his pain. He denies any fevers or chills. Ortho Exam General General: Yes no acute distress Neurologic: Yes alert and Yes oriented x3 Psychologic: Yes reasonable and appropriate Spine SPINE TESTING CERVICAL THORACIC LUMBAR Musculoskeletal Strength 0=absent - 5=normal Details: Neurological examination of the lower extremities shows grade 4 left dorsiflexion, this has been an improvement since before surgery which was grade 3. All other muscle groups show 5 power. Normal sensation across all dermatomes. Steri-Strips were removed from the belly incision. Belly incision was dry, no discharge noticed. Back incisions show left incision dry and healing well, right back incision shows some continued drainage and redness. Incision was cleaned and covered with a Band-Aid today. Belly incision and leftback incision were left open. See attached image. Supplemental Info Coding Level of Care Code Global Post Op Diagnoses Status post lumbar spinal fusion Z98.1 Assessment and Plan Assessment and Plan (1) Status post lumbar spinal fusion: Status: Acute Orders: Orders 2 Lumbar Spine 2 or 3 Views Today Z98.1 - Arthrodesis status Referrals 2 Physical Therapy Referral Z98.1 - Arthrodesis status Medications: New 2 cephalexin take 1 capsule twice a day 500 mg PO BID 14 caps 0RF tramadol 50 mg PO TID PRN 21 tabs 0RF pain Plan Obtained and reviewed x-rays today in the clinic. Independent interpretation ofthe x-rays was performed. Lumbar x-rays show hardware and bone graft in good position. Patient is now 2 weeks out L4-5 fusion. The right back incision shows some discharge with redness around the incision, a prescription for Keflex 500 mg twice a day for a week is sent. Recommend that the patient also do twice daily Betadine cleanings with dry Band-Aid changes. Recommend that the patient follow-up in a week for an incision check. He will let us know sooner if there is any changes. A refill of the tramadol 50 mg is sent. Discussed that after this refill no more can be sent. Encouraged the patient to rely more heavily onthe muscle relaxer and the Tylenol than the tramadol. He will start outpatient physical therapy at [facility]. Continue restrictions no bending, lifting, twisting greater than a gallon of milk. Follow-up next week for an incision check and then he will follow-up in 4 weeks for 6-week postop with Dr. Andrews. Sooner if needed for any new or worsening issues. Patient is in agreement to the plan. Clinical Quality Measures Falls Risk Screening/Assistive Devices Have you fallen in the past year?: Yes 06/06/25 8775 <Electronically signed by Beth MALDONADO> Date _ Beth MALDONADO Cosigner Signature: Date (if applicable) CC: ~ [facility] Work Phone: 1(575) 928-622309-10-2025 Procedure [facility] [address] [place] [address]. 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 5 mg PO BID 60 tabs 11RF BLOOD THINNER 05/24/25 1629 > Date _ Sharon Forbes Signature: Date (if applicable) CC: ~ [facility]09-10-2025 Progress note Author Lino Kaminski [facility] Note Date/Time May 24, 2025 1:42pm [facility] Medical Records Department [address] [facility] [place] [address] Progress Note - Hospitalist 05/24/25917 MR#: [id number] Acct: [id number] Name: MOO HOROWITZ Rep #:[id number] : 1945 80 From: Lino robledo MD PCP: Dr. Paul Mac MD Status:ADM I N Location: [place] [address] Subjective Subjective He has some postoperative pain, he is passing flatus but no bowel movements yet Objective Data Objective Data Vital Signs: Vital Signs Temp Pulse Resp BP Pulse Ox O2 Del Method O2 Flow Rate 98.3 F 74 18 106/43 L 100 Room Air 2 05/24/25 09:01 05/24/25 09:01 05/24/25 09:01 05/24/25 09:01 05/24/25 09:01 05/24/25 09:01 05/23/25 16:32 Oxygen Flow Rate (L/min) 2 Oxygen Delivery Method Room Air Weight: 195 lb 6.4 oz Body Mass Index (BMI) 29.7 Intake & Output: Intake and Output for Last 24 Hours 05/23/25 05/24/25 05/25/25 03:59 03:59 03:59 Intake Total 2021 323.75 / 323.75 Output Total 750 / 750 3 / 3 Balance 1272 / 1272 320.75 / 320.75 Lab / Micro Data 05/24/25 06:55 05/24/25 09:02 Labs: Laboratory Results - last 24 hr 05/24/25 06:55: WBC 12.3 H, RBC 3.42 L, Hgb 10.9 L, Hct 32.6 L, MCV 95.3 H, MCH 31.9, MCHC 33.4, RDW Std Deviation 48.5 H, RDW Coeff of Pia 13.9, Plt Count 165,MPV 10.8, Immature Gran % (Auto) 0.400, Neut % (Auto) 81.9 H, Lymph % (Auto) 6.3L, Pickens % (Auto) 11.2 H, Eos % (Auto) 0.0, Baso % (Auto) 0.2, Absolute Neuts (auto) 10.1 H, Absolute Lymphs (auto) 0.78 L, Nucleated RBC % 0, Sodium Cancelled, Potassium Cancelled, Chloride Cancelled, Carbon Dioxide Cancelled, Anion Gap Cancelled, BUN Cancelled, Creatinine Cancelled, Estim Creat Clear CalcCancelled, Est GFR (MDRD) Non-Af Cancelled, BUN/Creatinine Ratio Cancelled, Glucose Cancelled, Calcium Cancelled Radiography Diagnostic Testing: Radiology Impression Lumbar Spine X-Ray 05/24/25 04:15 IMPRESSION: Uncomplicated posterior fusion L4 and L5. Advanced degenerative changes similarto prior CT. Reading Location: [facility] Physical Exam Narrative General: Alert, Oriented x3, Cooperative, No apparent distress HEENT: Atraumatic, PERRLA, EOMI, Normocephalic Oral: Moist Mucosa Neck: Supple, No JVD Lungs: Diminished, Normal air movement, No rhonchi, No wheeze, No rales Cardiovascular: Regular rate, Regular Rhythm, Normal S1, Normal S2, No murmurs Abdomen: Soft, Non Tender, Non-Distended, No Hepato-splenomegaly Extremities: No edema, Capillary Refill Less than 3 Seconds Skin: No rashes, No breakdown Musculoskeletal: No Tenderness to Palpation of Joints or Extremities Neurological: No focal neurological deficits, moves all extremities, sensation intact Psych/Mental Status: Normal Affect, Appropriate Assessment & Plan Assessment/Plan (1) Lumbar stenosis with neurogenic claudication: PLAN: Plan 1. L4-5 disc generation with recurrent disc herniation, stenosis with neurogenic claudication and left foot drop status post L4-5 lumbar fusion on 05/23/2025 ? Pain management per primary ? PT/OT ? BMP is pending however I do anticipate it will be normal in which case he would be medically stable for discharge ? He is having flatus but no bowel movements yet 2. Paroxysmal A-fib/essential HTN/HLD ? Can resume his home blood pressure medications ? He will be up to surgery to determine reinstitution of Eliquis ? Monitor make adjustments as necessary ?Continue statin 3. Anxiety/insomnia ? Stable ? Okay to continue home low-dose Xanax at night. 4. LORI ? Stable ? Continue PAP therapy at night. DVT: Per primary Charges/Coding Visit Charges Inpatient E&M: 89449 Subs Hosp L2 05/24/25923 <Electronically signed by Lino Kaminski MD> Cosigner Signature (if applicable): CC: ~ Signed ADDENDUM by Dr. Lino Kaminski MD on 05/24/25 at 1342 Addendum Leukocytosis is reactive and creatinine is normal. From medical standpoint he is stable for discharge. Will sign off, please call with questions. 05/24/25 1342<Electronically signed by Lino Kaminski MD> Cosigner Signature (if applicable): cc: ~* Signed [facility] Work Phone: 1(301) 409-735209-10-2025 Progress note [facility] Medical Records Department [address] [place] [address] Progress Note - Hospitalist 05/24/25917 MR#: [id number] Acct: [id number] Name: MOO HOROWITZ Rep #:[id number] : 1945 80 From: Lino robledo MD PCP: Dr. Paul Mac MD Status:ADM I N Location: WA3 AR501-3 Subjective Subjective He has some postoperative pain, he is passing flatus but no bowel movements yet Objective Data Objective Data Vital Signs: Vital Signs Temp Pulse Resp BP Pulse Ox O2 Del Method O2 Flow Rate 98.3 F 74 18 106/43 L 100 Room Air 2 05/24/25 09:01 05/24/25 09:01 05/24/25 09:01 05/24/25 09:01 05/24/25 09:01 05/24/25 09:01 05/23/25 16:32 Oxygen Flow Rate (L/min) 2 Oxygen Delivery Method Room Air Weight: 195 lb 6.4 oz Body Mass Index (BMI) 29.7 Intake & Output: Intake and Output for Last 24 Hours 05/23/25 05/24/25 05/25/25 03:59 03:59 03:59 Intake Total 2021 323.75 / 323.75 Output Total 750 / 750 3 / 3 Balance 1272 / 1272 320.75 / 320.75 Lab / Micro Data 05/24/25 06:55 05/24/25 09:02 Labs: Laboratory Results - last 24 hr 05/24/25 06:55: WBC 12.3 H, RBC 3.42 L, Hgb 10.9 L, Hct 32.6 L, MCV 95.3 H, MCH 31.9, MCHC 33.4, RDW Std Deviation 48.5 H, RDW Coeff of Pia 13.9, Plt Count 165,MPV 10.8, Immature Gran % (Auto) 0.400,Neut % (Auto) 81.9 H, Lymph % (Auto) 6.3L, Pickens % (Auto) 11.2 H, Eos % (Auto) 0.0, Baso % (Auto) 0.2, Absolute Neuts (auto) 10.1 H, Absolute Lymphs (auto) 0.78 L, Nucleated RBC % 0, Sodium Cancelled,Potassium Cancelled, Chloride Cancelled, Carbon Dioxide Cancelled, Anion Gap Cancelled, BUN Cancelled, Creatinine Cancelled, Estim Creat Clear CalcCancelled, Est GFR (MDRD) Non-Af Cancelled, BUN/Creatinine Ratio Cancelled, Glucose Cancelled, Calcium Cancelled Radiography Diagnostic Testing: Radiology Impression Lumbar Spine X-Ray 05/24/25 04:15 IMPRESSION: Uncomplicated posterior fusion L4 and L5. Advanced degenerative changes similarto prior CT. Reading Location: [facility] Physical Exam Narrative General: Alert, Oriented x3, Cooperative, No apparent distress HEENT: Atraumatic, PERRLA, EOMI, Normocephalic Oral: Moist Mucosa Neck: Supple, No JVD Lungs: Diminished, Normal air movement, No rhonchi, No wheeze, No rales Cardiovascular: Regular rate, Regular Rhythm, Normal S1, Normal S2, No murmurs Abdomen: Soft, Non Tender, Non-Distended, No Hepato-splenomegaly Extremities: No edema, Capillary Refill Less than 3 Seconds Skin: No rashes, No breakdown Musculoskeletal: No Tenderness to Palpation of Joints or Extremities Neurological: No focal neurological deficits, moves all extremities, sensation intact Psych/Mental Status: Normal Affect, Appropriate Assessment & Plan Assessment/Plan (1) Lumbar stenosis with neurogenic claudication: PLAN: Plan 1. L4-5 disc generation with recurrent disc herniation, stenosis with neurogenic claudication and left foot drop status post L4-5 lumbar fusion on 05/23/2025 ? Pain management per primary ? PT/OT ? BMP is pending however I do anticipate it will be normal in which case he would be medically stable for discharge ? He is having flatus but no bowel movements yet 2. Paroxysmal A-fib/essential HTN/HLD ? Can resume his home blood pressure medications ? He will be up to surgery to determine reinstitution of Eliquis ? Monitor make adjustments as necessary ?Continue statin 3. Anxiety/insomnia ? Stable ? Okay to continue home low-dose Xanax at night. 4. LORI ? Stable ? Continue PAP therapy at night. DVT: Per primary Charges/Coding Visit Charges Inpatient E&M: 03041 Subs Hosp L2 05/24/25 0924 Cosigner Signature (if applicable): CC: ~ Signed ADDENDUM by Dr. Lino Kaminski MD on 05/24/25 at 1342 Addendum Leukocytosis is reactive and creatinine is normal. From medical standpoint he is stable for discharge. Will sign off, please call with questions. 05/24/25 1342 Cosigner Signature (if applicable): cc: ~* Signed [facility]09-10-2025 Radiology Diagnostic study note [facility] Imaging Services [address] [place], [place] [id number] Lumbar Spine 2 or 3 Views MR#: [id number] Acct: [id number] Name: MOO HOROWITZ #: [id number] : 1945 M 80 From: Jung Sanders MD PCP: Dr. Paul Mac MD Status: ADM I N Study:Lumbar Spine 2 or 3 Views Date of Exam: 05/24/25 Exam# [id number] Ordering Dr: Delmi Andrews MD PROCEDURE: LUMBAR SPINE 2 OR 3 VIEWS 05/24/2025 REASON FOR EXAM: STATUS POST LUMBAR FUSION TECHNIQUE: Procedure Code: RADSPLL Modality: DX Procedure: LUMBAR SPINE 2 OR 3 VIEWS COMPARISON: April 12, 2025 FINDINGS: Vertebrae: Large marginal osteophytes are shown throughout the lumbar spine. Once again there is mild anterior wedging of T12 and L1 vertebral bodies with proximally 25% height loss. Posterior fusion of L4 and L5 has been performed with a disc spacer in place emily single screw anteriorly on the left. Discs: Ikew-wg-xooduwxo loss of disc height throughout the lumbar spine. Alignment: Mild straightening of the lordosis. No significant spondylolisthesis. RAD/Lumbar Spine 2 or 3 Views IMPRESSION: Uncomplicated posterior fusion L4 and L5. Advanced degenerative changes similarto prior CT. Reading Location: [facility] CC: Dr. Johann Andrews MD; Dr. Paul Mac MD ~ Rental Counter Clerk: Signed [facility]09-09-2025 Consult note Author Cuate Hawthorne [facility] Note Date/Time May 23, 2025 5:24pm [facility] Medical Records Department [address] [place] [address] Consultation - Hospitalist 05/23/25 1435 MR#: [id number] Acct: [id number] Name: MOO HOROWITZ Rep #:[id number] : 1945 80 From: Cuate eller DO PCP: Dr. Paul Mac MD Status:ADM I N Location: [facility] CP524-1 Assessment & Plan Assessment/Plan (1) Lumbar stenosis with neurogenic claudication: PLAN: Plan Patient is a 80-year-old male who presented to [facility] on 05/23/2025 for planned lumbar fusion procedure. Medicine consulted postoperatively for medical management. 1. L4-5 disc generation with recurrent disc herniation, stenosis with neurogenic claudication and left foot drop ? Orthopedic surgery primary. S/p L4-5 oblique lumbar fusion procedure with on 05/23. Tolerated procedure well. Postoperative pain control, DVT prophylaxis and further management per orthopedics. PT/OT/case management consulted. Follow-up a.m. labs. 2. 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 Follows with [facility], last office visit on 05/10. Had pacemaker device evaluation on 05/10 that showed no AT/AF episodes. Was okay to hold Eliquis temporarily for surgery; will defer timing of restarting Eliquis to orthopedics. In normal sinus rhythm and normotensive postoperatively. Okay to resume home Toprol, losartan and rosuvastatin. 3. Anxiety/insomnia ? Okay to continue home low-dose Xanax at night. 4. LORI ? Continue PAP therapy at night. Total clinical time spent by myself addressing the patient's medical issues, reviewing all the data, and collaborating with patient's care team: 36 minutes. HPI Consult Data Date of Consult: 05/23/25 HPI Narrative Reason for Consultation: Postoperative medical management HPI Narrative: MOO HOROWITZ, is a 80 M who presented to [facility] on 05/23/2025 for planned orthopedic procedure. Medicine consulted postoperatively right management. Patient medical history significant for a 4?5 disc generation with recurrent disc herniation, stenosis with neurogenic claudication and left foot drop. He had an L4-5 oblique lumbar body fusion procedure done with Dr. Andrews today. Tolerated procedure well. I saw the patient at bedside this afternoon. Patient was sitting back fairly comfortably and his bedside chair and conversingnormally. Noted that he had been moved from bed to the bedside chair with the assistance of nursing and did have some low back pain with this. He was told hewas going to work with physical therapy shortly after I saw him and was looking forward to doing this. He denied any other acute concerns at this time. [facility] Medical History Ambulates with cane High cholesterol Gastric reflux [...] Cardiomyopathy in disease classified elsewhere Home Medications ?Medication ?Instructions ?Recorded ?Last Taken ?Type alprazolam 0.5 mg tablet 0.5 mg PO QHS anxiety 05/22/25 History acetaminophen 500 mg tablet 1,000 mg PO DAILY PAIN 05/22/25 History (Tylenol Extra Strength) ipratropium bromide 21 mcg (0.03 2 spray intranasal DA [facility] 09/23/23 05/23/25 05:00 History %) nasal spray metoprolol succinate 50 mg 50 mg PO BID HEART RATE #60 tabs 01/18/25 05/23/25 05:00 Rx tablet,extended release 24 hr apixaban 5 mg tablet (Eliquis) 5 mg PO BID BLOOD THINN ER #60 tabs 03/27/25 05/20/25 Rx cyclobenzaprine 10 mg tablet 10 mg PO TID PRN muscle s pasm #30 04/26/25 05/22/25 Rx tabs losartan 25 mg tablet 25 mg PO QHS HTN 05/10/25 History losartan 50 mg tablet 50 mg PO BID HTN 05/10/25 05:00 History meloxicam 15 mg tablet 15 mg PO .QOD INFLAMATION 05/16/25 History tramadol 50 mg tablet 50 mg PO TID PRN pain Unknown History rosuvastatin 20 mg tablet 20 mg PO QODAY HLD 05/16/25 05/21/25 History simethicone 250 mg capsule (Gas-X) 250 mg PO DAILY PRN abdominal 05/16/25 Unknown History distention Allergy/AdvReac Type Severity Reaction Status Date / Time diltiazem AdvReac Intermediate Facial Verified 05/23/25 06:04 flushing and fatigue prednisone AdvReac Mild Other Verified 05/23/25 06:04 carvedilol (From Coreg) AdvReac face Verified 05/23/25 06:04 tingling Family History Mother CAD (coronary artery disease) Father CAD (coronary artery disease) Brother Polycystic kidney disease Surgical History History of appendectomy History of colonoscopy Biventricular cardiac pacemaker in situ (07/13/15) History of herniorrhaphy History of carpal tunnel surgery of right wrist History of esophagogastroduodenoscopy (EGD) Social History Smoking Status: Never smoker alcohol intake: never substance use type: does not use caffeine: Yes Type: carbonated beverages and tea additional social history: Denies daily use of aspirin or ibuprofen. ROS Constitutional Constitutional: Reports fatigue; Denies chills, fever(s) or weakness Cardiovascular Cardiovascular: Denies chest pain Respiratory/Chest Respiratory/Chest: Denies shortness of breath at rest Gastrointestinal Gastrointestinal: Denies abdominal pain Musculoskeletal Musculoskeletal: Reports back pain Physical Exam Const alert, oriented x3 and no apparent distress Constitutional Narrative: Pleasant elderly male, overweight, mildly fatigued appearing but otherwise sitting back fairly comfortably in bedside chair, conversing normally, in no acute distress. General Appearance: cooperative and comfortable HEENT normocephalic, head/scalp atraumatic, hearing grossly normal bilaterally, nasal mucous membranes and turbinates normal and moist oral mucous membranes Eyes PERRL, EOMs intact bilaterally and conjunctivae normal Neck full ROM Chest inspection of chest normal Resp normal respiratory effort, normal air movement, no use of accessory muscles and clear to auscultation bilaterally Cardio regular rate, regular rhythm, no murmurs and peripheral pulses 2+ throughout GI normal to inspection, nondistended, normoactive bowel sounds, soft to palpation,non-tender and non-distended Back/Spine Back/Spine Narrative: Mild tenderness to palpation in low back at surgical incision site. Extremity normal to inspection and no pedal edema Skin no rashes or lesions noted Neuro moves all extremities and no focal motor deficits Psych mental status grossly normal Lab / Micro Data Labs: Laboratory Results - last 24 hr 05/23/25 05:59: POC Glucose 86 Charges/Coding Visit Charges Inpatient E&M: 54348 Subs Hosp L2 05/23/25 1724 <Electronically signed by Cuate Hatwhorne DO> Cosigner Signature (if applicable): CC: Dr. Johann Andrews MD; Dr. Paul Mac MD~ Signed [facility] Work Phone: 1(536) 909-359709-09-2025 Consult note [facility] Medical Records Department [address] [place] [address] Consultation - Hospitalist 05/23/25 1435 MR#: [id number] Acct: [id number] Name: MOO HOROWITZ Rep #:[id number] : 1945 80 From: Cuate eller DO PCP: Dr. Paul Mac MD Status:ADM I N Location: [place] [address] Assessment & Plan Assessment/Plan (1) Lumbar stenosis with neurogenic claudication: PLAN: Plan Patient is a 80-year-old male who presented to [facility] on 05/23/2025 for planned lumbar fusion procedure. Medicine consulted postoperatively for medical management. 1. L4-5 disc generation with recurrent disc herniation, stenosis with neurogenic claudication and left foot drop ? Orthopedic surgery primary. S/p L4-5 oblique lumbar fusion procedure with on 05/23. Tolerated procedure well. Postoperative pain control, DVT prophylaxis and further management per orthopedics. PT/OT/case management consulted. Follow-up a.m. labs. 2. 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 Follows with [facility], last office visit on 05/10. Had pacemaker device evaluation on 05/10 that showed no AT/AF episodes. Was okay to hold Eliquis temporarily for surgery; will defer timing of restarting Eliquis to orthopedics. In normal sinus rhythm and normotensive postoperatively. Okay to resume home Toprol, losartan and rosuvastatin. 3. Anxiety/insomnia ? Okay to continue home low-dose Xanax at night. 4. LORI ? Continue PAP therapy at night. Total clinical time spent by myself addressing the patient's medical issues, reviewing all the data, and collaborating with patient's care team: 36 minutes. HPI Consult Data Date of Consult: 05/23/25 HPI Narrative Reason for Consultation: Postoperative medical management HPI Narrative: MOO HOROWITZ, is a 80 M who presented to [facility] on 05/23/2025 for planned orthopedic procedure. Medicine consulted postoperatively right management. Patient medical history significant for a 4?5 disc generation with recurrent disc herniation, stenosis with neurogenic claudication and left foot drop. He had an L4-5 oblique lumbar body fusion procedure done with Dr. Andrews today. Tolerated procedure well. I saw the patient at bedside this afternoon. Patient was sitting back fairly comfortably and his bedside chair and conversingnormally. Noted that he had been moved from bed tothe bedside chair with the assistance of nursing and did have some low back pain with this. He was told hewas going to work with physical therapy shortly after I saw him and was looking forward to doing this. He denied any other acute concerns at this time. [facility] Medical History Ambulates with cane High cholesterol Gastric reflux [...] Cardiomyopathy in disease classified elsewhere Home Medications ?Medication ?Instructions ?Recorded ?Last Taken ?Type alprazolam 0.5 mg tablet 0.5 mg PO QHS anxiety 05/22/25 History acetaminophen 500 mg tablet 1,000 mg PO DAILY PAIN 05/22/25 History (Tylenol Extra Strength) ipratropium bromide 21 mcg (0.03 2 spray intranasal DA PAULIE [facility]STION 09/23/23 05/23/25 05:00 History %) nasal spray metoprolol succinate 50 mg 50 mg PO BID HEART RATE #60 tabs 01/18/25 05/23/25 05:00 Rx tablet,extended release 24 hr apixaban 5 mg tablet (Eliquis) 5 mg PO BID BLOOD THINN ER #60 tabs 03/27/25 05/20/25 Rx cyclobenzaprine 10 mg tablet 10 mg PO TID PRN muscle s pasm #30 04/26/25 05/22/25 Rx tabs losartan 25 mg tablet 25 mg PO QHS HTN 05/10/25 History losartan 50 mg tablet 50 mg PO BID HTN 05/10/25 05:00 History meloxicam 15 mg tablet 15 mg PO .QOD INFLAMATION 05/16/25 History tramadol 50 mg tablet 50 mg PO TID PRN pain Unknown History rosuvastatin 20 mg tablet 20 mg PO QODAY HLD 05/16/25 05/21/25 History simethicone 250 mg capsule (Gas-X) 250 mg PO DAILY PRN abdominal 05/16/25 Unknown History distention Allergy/AdvReac Type Severity Reaction Status Date / Time diltiazem AdvReac Intermediate Facial Verified 05/23/25 06:04 flushing and fatigue prednisone AdvReac Mild Other Verified 05/23/25 06:04 carvedilol (From Coreg) AdvReac face Verified 05/23/25 06:04 tingling Family History Mother CAD (coronary artery disease) Father CAD (coronary artery disease) Brother Polycystic kidney disease Surgical History History of appendectomy History of colonoscopy Biventricular cardiac pacemaker in situ (07/13/15) History of herniorrhaphy History of carpal tunnel surgery of right wrist History of esophagogastroduodenoscopy (EGD) Social History Smoking Status: Never smoker alcohol intake: never substance use type: does not use caffeine: Yes Type: carbonated beverages and tea additional social history: Denies daily use of aspirin or ibuprofen. ROS Constitutional Constitutional: Reports fatigue; Denies chills, fever(s) or weakness Cardiovascular Cardiovascular: Denies chest pain Respiratory/Chest Respiratory/Chest: Denies shortness of breath at rest Gastrointestinal Gastrointestinal: Denies abdominal pain Musculoskeletal Musculoskeletal: Reports back pain Physical Exam Const alert, oriented x3 and no apparent distress Constitutional Narrative: Pleasant elderly male, overweight, mildly fatigued appearing but otherwise sitting back fairly comfortably in bedside chair, conversing normally, in no acute distress. General Appearance: cooperative and comfortable HEENT normocephalic, head/scalp atraumatic, hearing grossly normal bilaterally, nasal mucous membranes and turbinates normal and moist oral mucous membranes Eyes PERRL, EOMs intact bilaterally and conjunctivae normal Neck full ROM Chest inspection of chest normal Resp normal respiratory effort, normal air movement, no use of accessory muscles and clear to auscultation bilaterally Cardio regular rate, regular rhythm, no murmurs and peripheral pulses 2+ throughout GI normal to inspection, nondistended, normoactive bowel sounds, soft to palpation,non-tender and non-distended Back/Spine Back/Spine Narrative: Mild tenderness to palpation in low back at surgical incision site. Extremity normal to inspection and no pedal edema Skin no rashes or lesions noted Neuro moves all extremities and no focal motor deficits Psych mental status grossly normal Lab / Micro Data Labs: Laboratory Results - last 24 hr 05/23/25 05:59: POC Glucose 86 Charges/Coding Visit Charges Inpatient E&M: 40782 Subs Hosp L2 05/23/25 1724 Cosigner Signature (if applicable): CC: Dr. Johann Andrews MD; Dr. Paul Mac MD~ Signed [facility]09-09-2025 Consult note Author Yengermain Ellercity [facility] Note Date/Time May 23, 2025 12:34pm [facility] Medical Records Department [address] [place] [address] Anesthesia Postop Eval II 05/23/25 1233 MR#: [id number] Acct: [id number] Name: MOO HOROWITZ Rep #:[id number] : 1945 80 From: Yen Suazo RNA PCP: Dr. Paul Mac MD Status:ADM I N Y Race: C Location: [facility] [id number] Anesthesia Postop Eval I Sum Postop Eval Completion status Anesthesia document: Postop Eval 1 completed: Yes Anesthesia Postop Eval I Summary Anesthesia Postop Eval I Summary: Anesthesia Postop Eval I: Assessment Summary Airway patent Yes 05/23/25 11:54 RETAIL ZONE [email or web address] Spontaneous unlabored Yes 05/23/25 11:54 RETAIL ZONE SPECIALIST.TNES respirations Mental status nausea No 05/23/25 11:54 RETAIL ZONE [email or web address].TNES Vomiting No 05/23/25 11:54 RETAIL ZONE SPECIALIST.TNES Anesthesia Postop Eval I: Fluid Summary Crystalloid volume administer 1,700 05/23/25 11:54 RETAIL ZONE SPECIALIST.TNES (ml) Colloids volume administered ( ml) Blood Product volume administered (ml) Total IV fluid infused 1,700 05/23/25 11:54 RETAIL ZONE [email or web address].TNES Anesthesia Postop Eval I: Summary Notes Anesthesia Complication No 05/23/25 11:54 RETAIL ZONE SPECIALIST.TNES Anesthesia Complication Comment: Post-operative progress note Anesthesia: Postop Eval II Evaluation Mental status: Awake and Calm Pain Level: 0 nausea: No Vomiting: No Complications Anesthesia Complication: No 05/23/25 1234 <Electronically signed by Yen Flowers CRNA> Date _ Yen Flowers CRNA Cosigner Signature: Date CC: ~ Signed [facility] Work Phone: 1(427) 132-913509-09-2025 Consult note Author Hernando Lopez [facility] Note Date/Time May 23, 2025 11:55am [facility] Medical Records Department [address] [place] [address] Anesthesia Postop Eval I 05/23/25 1154 MR#: [id number] Acct: [id number] Name: MOO HOROWITZ Rep #:[id number] : 1945 80 From: Hernando LIU PCP: Dr. Paul Mac MD Status:ADM I N Y Race: C Location: [place] [address] Anesthesia: Postop Eval I Current Vital Signs Temperature: 98.3 F Pulse Rate: 70 Blood Pressure: 126/67 Respiratory Rate: 14 Pulse Ox: 99 Assessment Airway patent: Yes Spontaneous unlabored respirations: Yes nausea: No Vomiting: No Anesthesia Complication: No Fluid Hydration Crystalloid volume administer (ml): 1,700 Total IV fluid infused: 1,700 Progress Note Anesthesia document: Postop Eval 1 completed: Yes 05/23/25 1155 <Electronically signed by Hernando Lopez CRNA> Date _ Hernando Lopez RETAIL ZONE SPECIALIST Cosigner Signature: Date CC: ~ Signed [facility] Work Phone: [phone]) 638-470009-09-2025 Consult note [facility] Medical Records Department [address] [place] [address] Anesthesia Postop Eval II 05/23/25 1233 MR#: [id number] Acct: [id number] Name: MOO HOROWITZ Rep #:[id number] : 1945 80 From: Yen GUAMAN PCP: Dr. Paul Mac MD Status:ADM I N Y Race: C Location: [place] [address] Anesthesia Postop Eval I Sum Postop Eval Completion status Anesthesia document: Postop Eval 1 completed: Yes Anesthesia Postop Eval I Summary Anesthesia Postop Eval I Summary: Anesthesia Postop Eval I: Assessment Summary Airway patent Yes 05/23/25 11:54 RETAIL ZONE [email or web address].[email or web address] Spontaneous unlabored Yes 05/23/25 11:54 RETAIL ZONE SPECIALIST.TNES respirations Mental status nausea No 05/23/25 11:54 RETAIL ZONE SPECIALIST.TNES Vomiting No 05/23/25 11:54 RETAIL ZONE SPECIALIST.TNES Anesthesia Postop Eval I: Fluid Summary Crystalloid volume administer 1,700 05/23/25 11:54 RETAIL ZONE SPECIALIST.TNES (ml) Colloids volume administered ( ml) Blood Product volume administered (ml) Total IV fluid infused 1,700 05/23/25 11:54 RETAIL ZONE SPECIALIST.TNES Anesthesia Postop Eval I: Summary Notes Anesthesia Complication No 05/23/25 11:54 RETAIL ZONE SPECIALIST.TNES Anesthesia Complication Comment: Post-operative progress note Anesthesia: Postop Eval II Evaluation Mental status: Awake and Calm Pain Level: 0 nausea: No Vomiting: No Complications Anesthesia Complication: No 05/23/25 1234 RETAIL ZONE SPECIALIST> Date _ Yen Dotterer RETAIL ZONE SPECIALIST Cosigner Signature: Date CC: ~ Signed [facility]09-09-2025 Procedure note [facility] Medical Records Department [address] [place] [address] Operative Report 05/23/25 1156 MR#: [id number] Acct: [id number] Name: MOO HOROWITZ Rep #:[id number] : 1945 80 From: Johann Andrews MD PCP: Dr. Paul Mac MD Status:ADM I N Location: [facility] [id number] Procedures Musculoskeletal 20xxx-29xxx: Other Procedure See Report Operative Report (Standard) Operative Information Date of Procedure: 05/23/25 Pre-Operative Diagnosis: L4-5 disc degeneration, recurrent disc herniation, stenosis with neurogenic claudication, left foot drop Post-Operative Diagnosis: Same Surgery/Procedure Performed: L4-5 posterior spine instrumented fusion nonprofit manager: Yes Electronic Instrument Trades Worker: Beth Gunderson Tasks completed by preschool assistant: Closing, Implanting device, Hemostasis: Electrocautery and Retracting Type of Anesthesia: General RN Documented Start/Stop Times: Operation Date: 05/23/25 07:30 Case Time Into Pre-Op 05/23/25 05:36 Out of Pre-Op 05/23/25 07:26 Anesthesia Start 05/23/25 07:37 Into Room 05/23/25 07:37 Procedure Start 05/23/25 08:16 Procedure End 05/23/25 11:41 Anesthesia End 05/23/25 11:46 Out of Room 05/23/25 11:46 Procedure Start Time: 08:16 Procedure Stop Time: 11:41 Select all DRAINS/GRAFTS/IMPLANTS that apply: Graft Graft details: Allograft cancellous chips and Implanted device Implanted device details: DePuy Viper prime pedicle screw instrumentation Estimated Blood Loss: 150 cc Specimen collected: No Description of surgery: Preoperative diagnosis: L4-5 disc degeneration, recurrent disc herniation, stenosis with neurogenicclaudication, left foot drop Postoperative diagnosis: Same Name of procedures: L4-5 posterior percutaneous pedicle screw instrumented fusion, prone: ? L4-5 posterior spinal fusion 48407 ? L4-5 posterior pedicle screw instrumentation 53249 ? Allograft cancellous chips Attending Surgeon: Dr. Johann Andrews Estimated blood loss: 150 mL (total for entire case) Anesthesia: General Complications: None Description of procedure: After the anterior procedure was complete, the patientwas then turned supine. The patient was then transferred to Owen table in prone position. Back was prepped and draped in usual fashion. C-arm AP view was then taken. C-arm was positioned in a way that L4 was centralized and superior endplate of was parallel to the beam. Spinous process was centered between the pedicles. Midline was marked with skin marker and lateral borders of the pedicles were also marked. Skin marker was also utilized to micah transversely across the middle of the pedicles at L4. 2 longitudinal paramedian incisions of 1 inch were placed. The fascia was incised vertically. Finger dissection was utilized to palpate the transverse process and facet joint. Viper Prime screws with towers were inserted and docked onto the transverse processes. This was then slowly moved medially to reach the superior articular process of L4. This was then confirmed on C-arm and then a mallet was utilized to drive the trocar into the pedicle going up to the medial wall of the pedicle on AP view. This was performed both sides. C-arm lateral view confirmed that the tip of the trocar was in the vertebral body, and the screw was advanced into the pedicle and vertebral body. This was repeated similarly at L5 bilaterally. Screw sizes were 7 x 50 mm at L4 and L5 on both sides. 45 mm precontoured titanium 5.5 mm lordotic colleen on both sides were then passed through the screw extensions and reduced down to the screws with the help of Short Fuzeer instrumentation system on both sides. AP and lateral view of the C-arm showed good positioning of the screws and cages. Final tightening with the torque screwdriver was then completed. Because of the adequate near complete discectomy anteriorly with removal of some extruded fragments in the anterior procedure, decision was made not to perform posterior decompression on the left. Sasha was utilized to roughen the facet joint at L4-5 on the right side. Cancellous allograft bone chips mixed with bone marrow aspirate were then placed over this decorticated area. Hemostasis was achieved. Closure was done in layers with 0 Vicryls for the fascia, 2-0 Vicryls for the subcutaneous tissue, and Monocryl for the skin. Dermabond was applied. Dressings were applied covered with Tegaderm. The patient was then turned supine onto a hospital bed. The patient was extubated and taken to PACU in stable condition. The patient tolerated the procedure well and no complications occurred. Depuy [place] cage & Viper Prime minimally invasive pedicle screw instrumentation system was utilized in this case. No dural tear was identified intraoperatively. I was present for the entirety of the case and performed the surgery. Emergency Preparedness Coordinator Beth Gunderson PA-C. My physician assistant professor of communication was a vital part of this case. They were important in appropriate retraction during the case, and protection of soft tissues during the procedure.Their intimate knowledge of thecase and my steps aided in safe and expedient completion of the procedure as well as appropriate position of the patient during the surgery. They were also vital in assisting with closure under my direct supervision. Surgical Findings: See operative note Complications Complications: No 05/23/25 1159 Cosigner Signature (if applicable): CC: Dr. Johann Andrews MD; Dr. Paul Mac MD~ Signed [facility]09-09-2025 Procedure note [facility] Medical Records Department [address] [place] [address] Operative Report 05/23/25 1148 MR#: [id number] Acct: [id number] Name: MOO HOROWITZ Rep #:[id number] : 1945 80 From: Johann Andrews MD PCP: Dr. Paul Mac MD Status:ADM I N Location: [place] [id number] Procedures Musculoskeletal 20xxx-29xxx: Other Procedure See Report Operative Report (Standard) Operative Information Date of Procedure: 05/23/25 Pre-Operative Diagnosis: L4-5 disc degeneration, recurrent disc herniation, stenosis with neurogenic claudication, left foot drop Post-Operative Diagnosis: Same Surgery/Procedure Performed: L4-5 oblique lumbar body fusion nonprofit manager: Yes Electronic Instrument Trades Worker: Beth Gunderson Tasks completed by preschool assistant: Closing, Removing tissue, Hemostasis: Electrocautery and Retracting Type of Anesthesia: General RN Documented Start/Stop Times: Operation Date: 05/23/25 07:30 Case Time Into Pre-Op 05/23/25 05:36 Out of Pre-Op 05/23/25 07:26 Anesthesia Start 05/23/25 07:37 Into Room 05/23/25 07:37 Procedure Start 05/23/25 08:16 Procedure End 05/23/25 11:41 Anesthesia End 05/23/25 11:46 Out of Room 05/23/25 11:46 Procedure Start Time: 08:16 Procedure Stop Time: 11:41 Select all DRAINS/GRAFTS/IMPLANTS that apply: Graft Graft details: Allograft cancellous chips, autologous iliac crest bone marrow aspirate and Implanted device Implanted device details: DePuy cougar lateral lumbar interbodycage?peek Estimated Blood Loss: 150 cc Specimen collected: No Description of surgery: Preoperative diagnosis: L4-5 disc degeneration, recurrent disc herniation, stenosis with neurogenicclaudication, left foot drop Postoperative diagnosis: Same Name of procedures L4-5 oblique lumbar interbody fusion (OLIF), minimally invasive left sided approach, lateral decubitus: ? L4-5 anterolateral spinal fusion 13419 ? L4-5 insertion of cage ? Bone graft aspirate left iliac crest separate incision ? Allograft cancellous chips Attending Surgeon: Dr. Johann Andrews Estimated blood loss: 150 mL Anesthesia: General Complications: None Indications: Patient is a 80-year-old pleasant gentleman who has had a long history of low back pain and left fourth and right lower extremity radiation, difficulty walking distances, left foot weakness. Xrays & CT myelogram revealed L4-5 disc degeneration, with possibleleft paracentral disc herniation and lateral recess stenosis, postsurgical changes of left laminotomy. Due to the significant persistent weakness of the left foot and persistent pain not improving with nonsurgical treatment, the patient elected to undergo surgical decompression & fusion. All surgical options were discussed with the patient including anterior and posterior approaches. All risks and benefits associated with the procedure were explained to the patient. The risks include but are not limited to infection, bleeding, injury to nerves and vessels including major vessels like IVC and aorta, persistent paresthesia, persistent pain, dural tear, need for further procedures, adjacent segment degeneration, pseudoarthrosis, hardware failure, retrograde ejaculation, paralytic ileus, etc. Procedure: The patient was identified in the preoperative holding suite using Unique patient identifiers. Skin was marked, consent was reviewed, and all questions were answered. The patient was then brought back to the operative room. A surgical timeout was performed to make sure correct procedure was being done on the correct patient and all operative room staff were on the same page. General endotracheal anesthesia was then given to the patient. Lama catheter was inserted. The patient was then carefully positioned in right lateral decubitus position with the left side up on a regular OR table. Axillary roll was placed and all bony prominences were well- padded. Hip positioners were placed in the posterior buttocks and anterior sternal area. The surgical area was prepped and draped in usual fashion. Preoperative antibiotic was injected IV as preoperative antibiotic. A final timeout was then again done just before starting the procedure. A 2 inch incision oblique was taken in the left lower quadrant of the abdomen 2 fingerbreadths away from the iliac crest and the lower ribs. Sharp dissection with Bovie was carried out up to the fascia covering the external oblique. The external oblique, internal oblique and transversus abdominis muscles were split along the muscle fibers and retroperitoneal space was entered. Sponge sticks were utilized to move the bowel and peritoneum [id number]-way and psoas muscle was exposed staying within the retroperitoneal plane. Crispy Gamerframe retractor system was positioned and the retractor blade was applied onto the psoas. The interval between psoas and midline structures was developed and appropriate retractors were placed. Once adequate interval was cleared, a disc space was identified and a marker x-ray was taken. This identified the L4-5 disc level. Annulotomy was done with a long handled knife. Pituitary was used to remove disc material. Curettes were used to prepare the endplates. Disc space spreaders were utilized to distract and increase the disc height. Near complete discectomy was performed. Significant venous bleeding was noticed from the deeper end of the disc anteriorly which prompted packing and discussion with vascular surgery. Bythe time Dr. Ward vascular surgery came in, the packing had adequately controlled the bleeding. Gelfoam packs were removed and no active bleeding was noticed in the disc space. Dr. Ward did scrubin and performed a thorough check to make sure no active bleeding was present. Decision was made not to perform the contralateral annulotomy. Trials of serially increasing sizes were used. A Jamshidi needle was used to aspirate bone marrow from the left anterior iliac crest through a separate incision and this aspirate was mixed with the allograft bone chips. A Depuy [place] cage of size of the 18 x 50 x 12 mm with 15degrees lordosis was packed with corticocancellous allograft bone chips mixed with bone marrow aspirate. This was inserted into the L4-5 disc space. AP and lateral C-arm pictures were taken to confirm good position of the cage. Some bone chips were also packed around the cages. Screw with washer was placed into the lower L4 body with a washer partially covering the cage at L4-5. Hemostasis was confirmed. The retractor blades were removed. Closure was done in layers with a continuous strand of # 1 Vicryl in all muscle layers. 2-0 Vicryl was used for subcutaneous tissue and 4-0 for Monocryl for the skin. Steri-Strips were applied and 4 x 4 gauze and Tegaderm were applied. Emergency Preparedness Coordinator Beth Gunderson PA-C. My physician assistant professor of communication was a vital part of this case. They were important in appropriate retraction during the case, and protection of soft tissues during the procedure.Their intimate knowledge of thecase and my steps aided in safe and expedient completion of the procedure as well as appropriate position of the patient during the surgery. They were also vital in assisting with closure under my direct supervision. Surgical Findings: See operative note Complications Complications: No 05/23/25 1156 Cosigner Signature (if applicable): CC: Dr. Johann Andrews MD; Dr. Paul Mac MD~ Signed [facility]09-09-2025 Consult note [facility] Medical Records Department [address] [place] [address] Anesthesia Postop Eval I 05/23/25 1154 MR#: [id number] Acct: [id number] Name: MOO HOROWITZ Rep #:[id number] : 1945 80 From: Hernando SOLORZANO NA PCP: Dr. Paul Mac MD Status:ADM I N Y Race: C Location: [facility] [id number] -1 Anesthesia: Postop Eval I Current Vital Signs Temperature: 98.3 F Pulse Rate: 70 Blood Pressure: 126/67 Respiratory Rate: 14 Pulse Ox: 99 Assessment Airway patent: Yes Spontaneous unlabored respirations: Yes nausea: No Vomiting: No Anesthesia Complication: No Fluid Hydration Crystalloid volume administer (ml): 1,700 Total IV fluid infused: 1,700 Progress Note Anesthesia document: Postop Eval 1 completed: Yes 05/23/25 1155 RETAIL ZONE SPECIALIST> Date _ Hernando Lopez RETAIL ZONE SPECIALIST Cosigner Signature: Date CC: ~ Signed [facility]09-09-2025 History and physical note Author [facility] Note Date/Time May 23, 2025 7:17am [facility] Medical Records Department [address] [place] [address] History & Physical Exam 05/23/25 0716 MR#: [id number] Acct: [id number] Name: MOO HOROWITZ Rep #:[id number] : 1945 80 From: Johann Andrews MD PCP: Dr. Paul Mac MD Status:ADM I N Location: [facility] A-1 History and Physical Date of Admission: 05/23/25 MR#: [id number] Acct: [id number] Name: PÉREZMOO FLORES Rep #: [id number] : 1945 Provider: Dr. Johann Andrews MD Age/Sex: 80/M Location: [facility] Status: Signed Intake Vital Signs 04/17/2513:16 05/10/2515:36 Height 5 ft 8 in 5 ft 8 in Intake Visit Reasons: lumbar spine Chief Complaint: pre op lumbar spine Is patient in pain?: Yes (lumbar spine ) Pain scale (1-10): 7 Allergies diltiazem Adverse Reaction (Intermediate, Verified 05/12/25 13:51) Facial flushing and fatiguecarvedilol (From Coreg) Adverse Reaction (Verified 05/12/25 13:51) face tingling Medications ?Medication ?Instructions ?Recorded ?Confirmed ?Type alprazolam 0.5 mg tablet 0.5 mg PO QHS anxiety 12/07/15 05/12/25 History acetaminophen 500 mg tablet 1,000 mg PO DAILY 12/25/22 05/12/25 Hist ory (Tylenol Extra Strength) ipratropium bromide 21 mcg (0.03 2 spray intranasal DAILY 09/23/23 History %) nasal spray metoprolol succinate 50 mg 50 mg PO BID #60 tabs 01/18/25 05/12/25 Rx tablet,extended release 24 hr apixaban 5 mg tablet (Eliquis) 5 mg PO BID #60 tabs 03/27/25 05/12/25 R x rosuvastatin 20 mg tablet 20 mg PO Q OTHER DAY #45 tabs 03/27/25 0 05/12/25 Rx cyclobenzaprine 10 mg tablet 10 mg PO TID PRN muscle spasm #30 05/12/25 Rx tabs losartan 25 mg tablet 25 mg PO .COMPLEX 05/10/25 05/12/25 Hist ory losartan 50 mg tablet 50 mg PO .COMPLEX 05/10/25 05/12/25 Hist ory meloxicam 15 mg tablet 15 mg PO .every other day 05/10/2505/12 History tramadol 50 mg tablet 50 mg PO TID PRN 05/10/25 05/12/25 Histo ry Have you fallen in the past year?: Yes [facility] Medical History Wears glasses Excessive bleeding Arthritis [...] (EGD) Family History Mother CAD (coronary artery disease)Father [...] by me, Dr. Johann Andrews MD 05/12/25 1345. Part of today?s visit was documented by [ ], acting as scribe. MOO HOROWITZ is a 80 year old M here today for a post operative visit for an L4- 5 anterior posterior fusion scheduled on 05-23-25. The [...] He is on Eliquis, prescribed by a medical instrument technician, and has a pacemaker placed about ten [...] the encounter. Provider reviewed content of the generatednote prior to signature. 04/17/25: MOO HOROWITZ is a 80 year old M here today for ct review. Patient had a CT scan on 04/12/2025. He would like to go over the CT results to see what the next step is. Patient had an injection in his lower back a few years ago. He sawDr. Stafford at pain management. Patient states that [...] his left leg function is not as goodas his right leg. When he lifts his left foot towards him it doesn't come up very far compared to the right side. He does have pain in the left side of his lower back that he has had for many years. he did bring a disc today with imaging on it from [facility]. Denies numbness, tingling or other associated symptoms. He states that the left leg kind of feels heavy compared to the right side. Says that he has a left-sided groin pain and pain that goes down the sidein the back of the left leg. Sitting alleviates his pain. He denies any right sided involvement. He is scheduled to have a CT scan of his lower back that wasordered by Dr. Barraza. He denies previous surgery on his back. He did have a fall in his home 1.5-2 weeks ago due to the leg. He did not get evaluated after his fall. He denied any increase of pain in his back following the fall. He istaking Meloxicam, Tramadol and Cyclobenzaprine for his pain which does help him.He has seen pain management in the past and had his last injection 4-[address] Car but states that the injections weren't helpful. He states that he has seen 3 spine surgeons in the past and they have all told him to ot have his back operated on but never got a good explanation on why. He has done PT 3-4years ago for his lower back but states it wasn't helpful. He states that he doesn't mind getting the flares of sciatica but is concerned as this one has notsubsided. He has a cane and has used it in the past. No diabetes, hx of pacemaker, takes Eliquis, sees cardiology. Ortho Exam General General: Yes no acute distress Neurologic: Yes alert and Yes oriented x3 Psychologic: Yes reasonable and appropriate Spine SPINE TESTING CERVICAL THORACIC LUMBAR Musculoskeletal Strength 0=absent - 5=normal Details: Neurological exam of the lower extremities shows grade 3 left dorsiflexion, all other muscle groups shows 5 power. Normal sensations across all dermatomes. No hyperreflexia. No midline or paraspinal tenderness. 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 These x-rays were done on February 22, 2025. X-rays show a multilevel disc height loss throughout thelumbar spine, no significant instability, no fractures. Reviewed CT myelogram of the lumbar spine done April 12, 2025 which showed L4-5 moderate spinal canal stenosis and moderate spinal canal stenosis at L3-4. 1. Lumbar disc herniation at L4-5 - Surgical intervention planned to relieve nerve pressure and stabilize the spine. - The procedure involves removing the herniated disc fragment, inserting a spacer, and using screws and rods for stabilization. - Postoperative mobility is emphasized to prevent complications. 2. Lumbar instability - Addressed concurrently with the disc herniation surgery to ensure spinal stability and prevent further nerve compression. 3. Foot drop - Expected to improve post-surgery, though complete recovery is not guaranteed. - Physical therapy will be initiated postoperatively to aid recovery. 4. Degenerative disc disease - Managed as part of the surgical intervention for the herniated disc and instability. 5. Pacemaker management - Eliquis to be stopped three days before surgery and resumed two to three days post-surgery, balancing stroke risk and surgical bleeding risk. - Stop taking Eliquis three days before surgery and resume two to three days after surgery. - Engage in postoperative mobility as soon as possible to prevent complications. - Attend outpatient physical therapy after the two-week postoperative visit. - Avoid heavy lifting and excessive bending for the first three months post- surgery. Explained the imaging findings in detail. At this time discussed options with the patient which includes more conservative treatment with injections by pain management versus surgery. Due to the patient's worsening back pain and left-sided leg pain he wishes to proceed with surgical intervention at this time. Discussed options with the patient today which includes fusion versus laminectomy. Because of the patient's back pain being his primary issue versus the leg pain discussed that the fusion procedure would be the most beneficial tohim. Discussed this procedure in detail and explained the risks, benefits and alternatives. The risks of surgery include but are not limited to infection, bleeding, injury to nerves or vessels, need for further surgery, ileus, vascularinjury, visceral injury, DVT, pulmonary embolism, pneumonia, atelectasis, cardiopulmonary event, pseudoarthrosis, hardware failure, gait abnormality, adjacent segment degeneration. Discussed post-surgery restrictions in detail such as no bending, lifting, or twisting. Answered all questions to the patient?s satisfaction. Patient understands and agrees to proceed with surgery. Consent was signed.Follow up two weeks post operatively or sooner if pain, swelling, numbness or associated symptoms, or concerns develop. All questions answered. Patient in agreement of plan. 05/23/25 0717 <Electronically signed by Johann Andrews MD> Cosigner Signature (if applicable): CC: Dr. Johann Andrews MD; Dr. Paul Mac MD~ Signed [facility] Work Phone: 1(668) 357-537509-09-2025 Consult note Author Kulwinder العراقي [facility] Note Date/Time May 23, 2025 6:58am [facility] Medical Records Department [address] [place] [address] Pre-Anesthesia Evaluation 05/23/25 0647 MR#: [id number] Acct: [id number] Name: MOO HOROWITZ Rep #:[id number] : 1945 80 From: Kulwinder العراقي MD PCP: Dr. Paul Mac MD Status:ADM I N Y Race: C Location: [place] [address] ASA Classification* ASA Classification ASA Classification: 3 Assessment & Plan Anesthesia* Anesthesia Assessment Anesthesia Assessment: Discussed sedation and/or anesthesia options, risks, benefits, and alternatives with patient/parents/legal guardian/POA. Questions invited. The patient/parents/legal guardian/POA seems to understand and agrees to proceedwith anesthesia plan. Reviewed the physical assessment, medical history, allergy history and patient home medications list prior to surgery/procedure/anesthetic and documented any changes. Performed airway and anesthesia risk assessments. Anesthesia Type Anesthesia Type: General (Consider GlideScope intubation.) History Source History Obtained from:: Patient and Chart Anesthesia Focused Assessment* Temperature: 97.2 F Pulse Rate: 80 Blood Pressure: 99/63 Respiratory Rate: 16 Pulse Ox: 100 Oxygen Delivery Method: Room Air Airway Assessment Mouth opens: >3 cm Mallampati Score: IV Teeth Condition: Caps/Crowns (Patient has several crowns. They are tight.) Neck Range of motion (ROM): Limited ROM (Severe Restriction) Labs Anesthesia Preop lab: CBC WBC 7.8 K/mm3 (4.4-11.0) 05/11/25 14:21 05/11/25 RBC 4.12 M/mm3 (4.6-6.2) L 05/11/25 14:21 05/11/25 Hgb 13.0 g/dL (13.0-16.5) 05/11/25 14:21 05/11/25 Hct 40.2 % (40-54) 05/11/25 14:21 05/11/25 Plt Count 217 K/mm3 (150-450) 05/11/25 14:21 05/11/25 CHEMISTRY Potassium 5.1 mmol/L (3.3-5.1) 05/11/25 14:21 05/11/25 Sodium 139 mmol/L (133-145) 05/11/25 14:21 05/11/25 Magnesium 2.2 mg/dL (1.5-2.2) 05/17/25 14:56 05/17/25 BUN 27 mg/dL (4-19) H 05/11/25 14:21 05/11/25 Creatinine 1.16 mg/dL (0.70-1.20) 05/11/25 14:21 05/11/25 Glucose 83 mg/dL (70-99) 05/11/25 14:21 05/11/25 TSH 1.72 uIU/mL (0.358-3.74) 11/30/23 16:27 COAG PT 12.9 SECONDS (11.7-14.9) 04/12/25 12:25 Pre-Assessment Diagnosis/Proposed Procedure Planned Operative Procedure(s): ERAS, 360 Lumbar Fusion L4-5 Anesthesia History Anesthesia History - director public policy: Anesthesia History - director public policy Hx Hospitalization No 05/16/25 10:40 Any Problems With Anesthesia PONV 05/16/25 10:40 Cholinesterase deficiency No 05/16/25 10:40 You/Your Family Experience No 05/16/25 10:40 fever (hyperthermia) with Relationship Recent Exposure to Contagious No 05/23/25 06:09 Disease Does patient have nerve No 05/16/25 10:40 stimulator Patient instructed to have device shut off --Does patient have Pacemaker Yes 05/23/25 06:15 or ICD? When Was Last Pacemaker Check 11/30/15 VIA PHONE 06/03/22 13:38 QUESTION #4 FULL TEXT: You/Your Family Experience fever (hyperthermia) with Anesthesia Last Oral Intake Last Oral intake: Last Oral Intake NPO since 03:00 05/23/25 06:15 Meds taken in AM with sips of Yes 05/23/25 06:15 water? Meds patient instructed to take am of surgery Any additional information?: Yes NPO since: 03:00 (Patient has preop Ensure at 3AM.) Meds taken in AM with sips of water?: Yes PONV PONV - director public policy: PONV - director public policy Female No 05/16/25 10:40 HX of Motion Sickness No 05/16/25 10:40 HX of N/V After Surgery No 05/16/25 10:40 Non-Smoker Yes 05/16/25 10:40 Duration of Surgery greater Yes 05/16/25 10:40 than 60 minutes Number of Risk Factors 2 05/16/25 10:40 PONV Score Moderate Risk 05/16/25 10:40 Height & Weight Height & Weight: Anesthesia: Height & Weight Height 5 ft 05/23/25 06:15 Weight: 88.632 kg 05/23/25 06:15 Body Mass Index (BMI) 38.1 05/23/25 06:15 Respiratory Assessment Respiratory Assessment - director public policy: Respiratory Tract Infection Hx - director public policy Hx Respiratory Tract Infection No 05/16/25 10:40 STOP Sleep Apnea STOP Sleep Apnea - director public policy: STOP Sleep Apnea - director public policy Hx Hypertension Yes: PER PT, CONTROLLED ON [...] Tobacco Use History Tobacco Use History - director public policy: Tobacco Use History - director public policy Tobacco Use Smoking Status Never smoker 05/16/25 10:40 Hx Tobacco Use No 05/16/25 10:40 Years Smoking Packs Smoked per Day Smoking Cessation Date was within the last 15 years Hx Smoking Cessation Date Hx Smoking Cessation Counseling Hematologic Medial History Hematologic Hx - director public policy: Hematologic Medical Hx - clinical documentation specialist Hx of Blood Transfusion No 05/16/25 10:40 Hx of Transfusion in last 3 No 05/16/25 10:40 Months Date of Last Transfusion (if within last 3 months) Ever experience any problems No 05/16/25 10:40 with transfusion(s)? Specify any problems Hx of Preganancy in last 3 N/A 05/16/25 10:40 Months Nurse Filling Out Transfusion MGRIFFITH 05/16/25 10:40 & Questions: Date: 05/16/25 05/16/25 10:40 Time: 10:42 05/16/25 10:40 Patient unable to answer at this time (ie. confused, unrespo /Reproduction History /Reproductive History - director public policy: /Reproductive Hx- director public policy Hx Now No 05/16/25 10:40 Gestational Age (in weeks): EDC: Hx Hx Para Hx Section SAB No 05/16/25 10:40 Active Medications Active Medications: Current Medications Generic Name Dose Route Start Last Admin Trade Name Freq PRN Reason Stop Dose Admin Acetaminophen 1,000 mg 05/23/25 07:30 05/23/25 06:18 Acetaminophen 500 Mg Tablet PO 05/23/25 07:31 1,000 mg PREOP ONE Administration Cefazolin Sodium 2 gm/ Sodium 110 mls @ 150 mls/hr 05/23/25 07:30 Chloride IV 05/23/25 08:13 INTRAOP ONE Tranexamic Acid 1,000 mg/ 110 mls @ 440 mls/hr 05/23/25 07:30 Sodium Chloride IV 05/23/25 07:44 INTRAOP ONE Tranexamic Acid 1,000 mg/ 110 mls @ 440 mls/hr 05/23/25 07:30 Sodium Chloride IV 05/23/25 07:44 INTRAOP ONE Magnesium Sulfate 1 gm/ 102 mls @ 408 mls/hr 05/23/25 07:30 05/23/25 06:31 Dextrose IV 05/23/25 07:44 408 mls/hr PREOP ONE Administration Lactated Ringer's 1,000 mls @ 15 mls/hr 05/23/25 05:45 05/23/25 06:30 IV 15 mls/hr .Q48H ROULA Administration Insulin Human Lispro 1 - 6 unit 05/23/25 07:30 Insulin Lispro 100 Unit/Ml Insuln.Pen SC 05/23/25 18:00 Q4H PRN PRN BG>/= 180, SEE PROTOCOL Protocol PFSH Medical History Ambulates with cane High cholesterol Gastric reflux [...] Cardiomyopathy in disease classified elsewhere Home Medications ?Medication ?Instructions ?Recorded ?Last Taken ?Type alprazolam 0.5 mg tablet 0.5 mg PO QHS anxiety 05/22/25 History acetaminophen 500 mg tablet 1,000 mg PO DAILY PAIN 05/22/25 History (Tylenol Extra Strength) ipratropium bromide 21 mcg (0.03 2 spray intranasal DA PAULIE CONGESTION 09/23/23 05/23/25 05:00 History %) nasal spray metoprolol succinate 50 mg 50 mg PO BID HEART RATE #60 tabs 01/18/25 05/23/25 05:00 Rx tablet,extended release 24 hr apixaban 5 mg tablet (Eliquis) 5 mg PO BID BLOOD THINN ER #60 tabs 03/27/25 05/20/25 Rx cyclobenzaprine 10 mg tablet 10 mg PO TID PRN muscle s pasm #30 04/26/25 05/22/25 Rx tabs losartan 25 mg tablet 25 mg PO QHS HTN 05/10/25 History losartan 50 mg tablet 50 mg PO BID HTN 05/10/25 05:00 History meloxicam 15 mg tablet 15 mg PO .QOD INFLAMATION 05/16/25 History tramadol 50 mg tablet 50 mg PO TID PRN pain Unknown History rosuvastatin 20 mg tablet 20 mg PO QODAY HLD 05/16/25 05/21/25 History simethicone 250 mg capsule (Gas-X) 250 mg PO DAILY PRN abdominal 05/16/25 Unknown History distention Allergy/AdvReac Type Severity Reaction Status Date / Time diltiazem AdvReac Intermediate Facial Verified 05/23/25 06:04 flushing and fatigue prednisone AdvReac Mild Other Verified 05/23/25 06:04 carvedilol (From Coreg) AdvReac face Verified 05/23/25 06:04 tingling Family History Mother CAD (coronary artery disease) Father CAD (coronary artery disease) Brother Polycystic kidney disease Surgical History History of appendectomy History of colonoscopy Biventricular cardiac pacemaker in situ (07/13/15) History of herniorrhaphy History of carpal tunnel surgery of right wrist History of esophagogastroduodenoscopy (EGD) Social History Smoking Status: Never smoker alcohol intake: never substance use type: does not use caffeine: Yes Type: carbonated beverages and tea additional social history: Denies daily use of aspirin or ibuprofen. Review of Systems (Anesthesia) ROS Narrative System reviewed and no additional complaints, except as documented. 05/23/2558 <Electronically signed by Kulwinder tillman MD> Date _ Kulwinder العراقي MD Cosigner Signature: Date CC: ~ Signed [facility] Work Phone: 1([phone]) 529-412509-09-2025 History and physical note [facility] Medical Records Department [address] [place] [address] History & Physical Exam 05/23/25 0716 MR#: [id number] Acct: [id number] Name: MOO HOROWITZ Rep #:[id number] : 1945 80 From: Johann Andrews MD PCP: Dr. Paul Mac MD Status:ADM I N Location: [facility] A-1 History and Physical Date of Admission: 05/23/25 MR#: [id number] Acct: [id number] Name: MOO HOROWITZ Rep #: [id number] : 1945 Provider: Dr. Johann Andrews MD Age/Sex: 80/M Location: [facility] Status: Signed Intake Vital Signs 04/17/2513:16 05/10/2515:36 Height 5 ft 8 in 5 ft 8 in Intake Visit Reasons: lumbar spine Chief Complaint: pre op lumbar spine Is patient in pain?: Yes (lumbar spine ) Pain scale (1-10): 7 Allergies diltiazem Adverse Reaction (Intermediate, Verified 05/12/25 13:51) Facial flushing and fatiguecarvedilol (From Coreg) Adverse Reaction (Verified 05/12/25 13:51) face tingling Medications ?Medication ?Instructions ?Recorded ?Confirmed ?Type alprazolam 0.5 mg tablet 0.5 mg PO QHS anxiety 12/07/15 05/12/25 History acetaminophen 500 mg tablet 1,000 mg PO DAILY 12/25/22 05/12/25 Hist ory (Tylenol Extra Strength) ipratropium bromide 21 mcg (0.03 2 spray intranasal DAILY 09/23/23 History %) nasal spray metoprolol succinate 50 mg 50 mg PO BID #60 tabs 01/18/25 05/12/25 Rx tablet,extended release 24 hr apixaban 5 mg tablet (Eliquis) 5 mg PO BID #60 tabs 03/27/25 05/12/25 R x rosuvastatin 20 mg tablet 20 mg PO Q OTHER DAY #45 tabs 03/27/25 0 05/12/25 Rx cyclobenzaprine 10 mg tablet 10 mg PO TID PRN muscle spasm #30 05/12/25 Rx tabs losartan 25 mg tablet 25 mg PO .COMPLEX 05/10/25 05/12/25 Hist ory losartan 50 mg tablet 50 mg PO .COMPLEX 05/10/25 05/12/25 Hist ory meloxicam 15 mg tablet 15 mg PO .every other day 05/10/2505/12 History tramadol 50 mg tablet 50 mg PO TID PRN 05/10/25 05/12/25 Histo ry Have you fallen in the past year?: Yes [facility] Medical History Wears glasses Excessive bleeding Arthritis [...] (EGD) Family History Mother CAD (coronary artery disease)Father [...] by me, Dr. Johann Andrews MD 05/12/25 2458. Part of today?s visit was documented by [ ], acting as scribe. MOO HOROWITZ is a 80 year old M here today for a post operative visit for an L4- 5 anterior posterior fusion scheduled on 05-23-25. The [...] He is on Eliquis, prescribed by a medical instrument technician, and has a pacemaker placed about ten [...] the encounter. Provider reviewed content of the generatednote prior to signature. 04/17/25: MOO HOROWITZ is a 80 year old M here today for ct review. Patient had a CT scan on 04/12/2025. He would like to go over the CT results to see what the next step is. Patient had an injection in his lower back a few years ago. He sawDr. Stafford at pain management. Patient states that the injection he had gotten didn't help and lasted for about 2 days. He hasn't had any recent injections. Patient hasn't really done any physical therapy. He thinks Dr. Sifuentes had him do a couple sessions, but he states that the physical therapy didn't help with the pain. Patient states he think he did hisstretches at home. HPI from 03/16/25: MOO HOROWITZ [...] his left leg function is not as goodas his right leg. When he lifts his left foot towards him it doesn't come up very far compared to the right side. He does have pain in the left side of his lower back that he has had for many years. he did bring a disc today with imaging on it from [facility]. Denies numbness, tinglingor other associated symptoms. He states that the left leg kind of feels heavy compared to the rightside. Says that he has a left-sided groin pain and pain that goes down the sidein the back of the left leg. Sitting alleviates his pain. He denies any right sided involvement. He is scheduled to havea CT scan of his lower back that wasordered by Dr. Barraza. He denies previous surgery on his back. He did have a fall in his home 1.5-2 weeks ago due to the leg. He did not get evaluated after his fall. He denied any increase of pain in his back following the fall. He istaking Meloxicam, Tramadol and Cyclobenzaprine for his pain which does help him.He has seen pain management in the past and had his last injection 4-[address] Car but states that the injections weren't helpful. He states that he has seen 3 spine surgeons in the past and they have all told him to ot have his back operated on but never got a good explanation on why. He has done PT 3- 4years ago for his lower back but states it wasn't helpful. He states that he doesn't mind getting the flares of sciatica but is concerned as this one has notsubsided. He has a cane and has used it in the past. No diabetes, hx of kim gonzalez, takes Eliquis, sees cardiology. Ortho Exam General General: Yes no acute distress Neurologic: Yes alert and Yes oriented x3 Psychologic: Yes reasonable and appropriate Spine SPINE TESTING CERVICAL THORACIC LUMBAR Musculoskeletal Strength 0=absent - 5=normal Details: Neurological exam of the lower extremities shows grade 3 left dorsiflexion, all other muscle groupsshows 5 power. Normal sensations across all dermatomes. No hyperreflexia. No midline or paraspinal tenderness. 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 These x-rays were done on February 22, 2025. X-rays show a multilevel disc height loss throughout thelumbar spine, no significant instability,no fractures. Reviewed CT myelogram of the lumbar spine done April 12, 2025 which showed L4-5 moderate spinal canal stenosis and moderate spinal canal stenosis at L3-4. 1. Lumbar disc herniation at L4-5 - Surgical intervention planned to relieve nerve pressure and stabilize the spine. - The procedure involves removing the herniated disc fragment, inserting a spacer, and using screwsand rods for stabilization. - Postoperative mobility is emphasized to prevent complications. 2. Lumbar instability - Addressed concurrently with the disc herniation surgery to ensure spinal stability and prevent further nerve compression. 3. Foot drop - Expected to improve post-surgery, though complete recovery is not guaranteed. - Physical therapy will be initiated postoperatively to aid recovery. 4. Degenerative disc disease - Managed as part of the surgical intervention for the herniated disc and instability. 5. Pacemaker management - Eliquis to be stopped three days before surgery and resumed two to three days post-surgery, balancing stroke risk and surgical bleeding risk. - Stop taking Eliquis three days before surgery and resume two to three days after surgery. - Engage in postoperative mobility as soon as possible to prevent complications. - Attend outpatient physical therapy after the two-week postoperative visit. - Avoid heavy lifting and excessive bending for the first three months post-surgery. Explained the imaging findings in detail. At this time discussed options with the patient which includes more conservative treatment with injections by pain management versus surgery. Due to the patient's worsening back pain and left- sided leg pain he wishes to proceed with surgical intervention atthis time. Discussed options with the patient today which includes fusion versus laminectomy. Because of the patient's back pain being his primary issue versus the leg pain discussed that the fusion procedure would be the most beneficial tohim. Discussed this procedure in detail and explained the risks, benefits and alternatives. The risks ofsurgery include but are not limited to infection, bleeding, injury to nerves or vessels, need for further surgery, ileus, vascularinjury, visceral injury, DVT, pulmonary embolism, pneumonia, atelectas is, cardiopulmonary event, pseudoarthrosis, hardware failure, gait abnormality, adjacent segment degeneration. Discussed post-surgery restrictions in detail such as no bending, lifting, or twisting. Answered all questions to the patient?s satisfaction. Patient understands and agrees to proceed withsurgery. Consent was signed.Follow up two weeks post operatively or sooner if pain, swelling, numbness or associated symptoms, or concerns develop. All questions answered. Patient in agreement of plan. 05/23/25 07 [facility] Signature (if applicable): CC: Dr. Johann Andrews MD; Dr. Paul Mac MD~ Signed [facility]09-09-2025 [facility] Medical Records Department [address] [place] [address] History Physical Exam 05/23/25 0716 MR#: [id number] Acct: [id number] Name: MOO HOROWITZ Rep #: [id number] : 1945 80 From: Johann Andrews MD PCP: Dr. Paul Mac MD Status:ADM IN Location: [place] [address] History and Physical Date of Admission: 05/23/25 MR#: [id number] Acct: [id number] Name: MOO HOROWITZ Rep #: [id number] : 1945 Provider: Dr. Johann Andrews MD Age/Sex: 80/M Location: [facility] Status: Signed Intake Vital Signs 04/17/2513:16 05/10/2515:36 Height 5 ft 8 in 5 ft 8 in Intake Visit Reasons: lumbar spine Chief Complaint: pre op lumbar spine Is patient in pain?: Yes (lumbar spine ) Pain scale (1-10): 7 Allergies diltiazem Adverse Reaction (Intermediate, Verified 05/12/25 13:51) Facial flushing and fatiguecarvedilol (From Coreg) Adverse Reaction (Verified 05/12/25 13:51) face tingling Medications ???Medication ???Instructions ???Recorded ???Confirmed ???Type alprazolam 0.5 mg tablet 0.5 mg PO QHS anxiety 12/07/15 05/12/25 History acetaminophen 500 mg tablet 1,000 mg PO DAILY 12/25/22 05/12/25 History (Tylenol Extra Strength) ipratropium bromide 21 mcg (0.03 2 spray intranasal DAILY 09/23/23 05/12/25 History %) nasal spray metoprolol succinate 50 mg 50 mg PO BID #60 tabs 01/18/25 05/12/25 Rx tablet,extended release 24 hr apixaban 5 mg tablet (Eliquis) 5 mg PO BID #60 tabs 03/27/25 05/12/25 Rx rosuvastatin 20 mg tablet 20 mg PO Q OTHER DAY #45 tabs 03/27/25 05/12/25 Rx cyclobenzaprine 10 mg tablet 10 mg PO TID PRN muscle spasm #30 08/13/25 08/29/2 5 Rx tabs losartan 25 mg tablet 25 mg PO .COMPLEX 05/10/25 05/12/25 History losartan 50 mg tablet 50 mg PO .COMPLEX 05/10/25 05/12/25 History meloxicam 15 mg tablet 15 mg PO .every other day 05/10/25 05/12/25 Histor y tramadol 50 mg tablet 50 mg PO TID PRN 05/10/25 05/12/25 History Have you fallen in the past year?: Yes [facility] Medical History Wears glasses Excessive bleeding Arthritis [...] (EGD) Family History Mother CAD (coronary artery disease)Father [...] by me, Dr. Johann Andrews MD 05/12/25 6664. Part of today???s visit was documented by [ ], acting as scribe. MOO HOROWITZ is a 80 year old M here today for a post operative visit for an L4- 5 anterior posterior fusion scheduled on 05-23-25. The [...] He is on Eliquis, prescribed by a medical instrument technician, and has a pacemaker placed about ten years ago. - Musculoskeletal: Reports left-sided weakness and pain radiating from the back to the toes, particularly affecting the big toe. - Neurological: Reports foot drop and left-sided weakness. - Cardiovascular: Denies history of (more content not included)...[facility]09-09-2025 Consult note [facility] Medical Records Department [address] [place] [address] Pre-Anesthesia Evaluation 05/23/25 0647 MR#: [id number] Acct: [id number] Name: MOO HOROWITZ Rep #:[id number] : 1945 80 From: Kulwinder العراقي MD PCP: Dr. Paul Mac MD Status:ADM I N Y Race: C Location: [place] [address] ASA Classification* ASA Classification ASA Classification: 3 Assessment & Plan Anesthesia* Anesthesia Assessment Anesthesia Assessment: Discussed sedation and/or anesthesia options, risks, benefits, and alternatives with patient/parents/legal guardian/POA. Questions invited. The patient/parents/legal guardian/POA seems to understand and agrees to proceedwith anesthesia plan. Reviewed the physical assessment, medical history, allergy history and patient home medications list prior to surgery/procedure/anesthetic and documented any changes. Performed airway and anesthesia risk assessments. Anesthesia Type Anesthesia Type: General (Consider GlideScope intubation.) History Source History Obtained from:: Patient and Chart Anesthesia Focused Assessment* Temperature: 97.2 F Pulse Rate: 80 Blood Pressure: 99/63 Respiratory Rate: 16 Pulse Ox: 100 Oxygen Delivery Method: Room Air Airway Assessment Mouth opens: >3 cm Mallampati Score: IV Teeth Condition: Caps/Crowns (Patient has several crowns. They are tight.) Neck Range of motion (ROM): Limited ROM (Severe Restriction) Labs Anesthesia Preop lab: CBC WBC 7.8 K/mm3 (4.4-11.0) 05/11/25 14:21 05/11/25 RBC 4.12 M/mm3 (4.6-6.2) L 05/11/25 14:21 05/11/25 Hgb 13.0 g/dL (13.0-16.5) 05/11/25 14:21 05/11/25 Hct 40.2 % (40-54) 05/11/25 14:21 05/11/25 Plt Count 217 K/mm3 (150-450) 05/11/25 14:21 05/11/25 CHEMISTRY Potassium 5.1 mmol/L (3.3-5.1) 05/11/25 14:21 05/11/25 Sodium 139 mmol/L (133-145) 05/11/25 14:21 05/11/25 Magnesium 2.2 mg/dL (1.5-2.2) 05/17/25 14:56 05/17/25 BUN 27 mg/dL (4-19) H 05/11/25 14:21 05/11/25 Creatinine 1.16 mg/dL (0.70-1.20) 05/11/25 14:21 05/11/25 Glucose 83 mg/dL (70-99) 05/11/25 14:21 05/11/25 TSH 1.72 uIU/mL (0.358-3.74) 11/30/23 16:27 COAG PT 12.9 SECONDS (11.7-14.9) 04/12/25 12:25 Pre-Assessment Diagnosis/Proposed Procedure Planned Operative Procedure(s): ERAS, 360 Lumbar Fusion L4-5 Anesthesia History Anesthesia History - director public policy: Anesthesia History - director public policy Hx Hospitalization No 05/16/25 10:40 Any Problems With Anesthesia PONV 05/16/25 10:40 Cholinesterase deficiency No 05/16/25 10:40 You/Your Family Experience No 05/16/25 10:40 fever (hyperthermia) with Relationship Recent Exposure to Contagious No 05/23/25 06:09 Disease Does patient have nerve No 05/16/25 10:40 stimulator Patient instructed to have device shut off --Does patient have Pacemaker Yes 05/23/25 06:15 or ICD? When Was Last Pacemaker Check 11/30/15 VIA PHONE 06/03/22 13:38 QUESTION #4 FULL TEXT: You/Your Family Experience fever (hyperthermia) with Anesthesia Last Oral Intake Last Oral intake: Last Oral Intake NPO since 03:00 05/23/25 06:15 Meds taken in AM with sips of Yes 05/23/25 06:15 water? Meds patient instructed to take am of surgery Any additional information?: Yes NPO since: 03:00 (Patient has preop Ensure at 3AM.) Meds taken in AM with sips of water?: Yes PONV PONV - director public policy: PONV - director public policy Female No 05/16/25 10:40 HX of Motion Sickness No 05/16/25 10:40 HX of N/V After Surgery No 05/16/25 10:40 Non-Smoker Yes 05/16/25 10:40 Duration of Surgery greater Yes 05/16/25 10:40 than 60 minutes Number of Risk Factors 2 05/16/25 10:40 PONV Score Moderate Risk 05/16/25 10:40 Height & Weight Height & Weight: Anesthesia: Height & Weight Height 5 ft 05/23/25 06:15 Weight: 88.632 kg 05/23/25 06:15 Body Mass Index (BMI) 38.1 05/23/25 06:15 Respiratory Assessment Respiratory Assessment - director public policy: Respiratory Tract Infection Hx - director public policy Hx Respiratory Tract Infection No 05/16/25 10:40 STOP Sleep Apnea STOP Sleep Apnea - director public policy: STOP Sleep Apnea - director public policy Hx Hypertension Yes: PER PT, CONTROLLED ON [...] than talking or can be heard through closeddoors)? Tobacco Use History Tobacco Use History - director public policy: Tobacco Use History - director public policy Tobacco Use Smoking Status Never smoker 05/16/25 10:40 Hx Tobacco Use No 05/16/25 10:40 Years Smoking Packs Smoked per Day Smoking Cessation Date was within the last 15 years Hx Smoking Cessation Date Hx Smoking Cessation Counseling Hematologic Medial History Hematologic Hx - director public policy: Hematologic Medical Hx - clinical documentation specialist Hx of Blood Transfusion No 05/16/25 10:40 Hx of Transfusion in last 3 No 05/16/25 10:40 Months Date of Last Transfusion (if within last 3 months) Ever experience any problems No 05/16/25 10:40 with transfusion(s)? Specify any problems Hx of Preganancy in last 3 N/A 05/16/25 10:40 Months Nurse Filling Out Transfusion MGRIFFITH 05/16/25 10:40 & Questions: Date: 05/16/25 05/16/25 10:40 Time: 10:42 05/16/25 10:40 Patient unable to answer at this time (ie. confused, unrespo /Reproduction History /Reproductive History - director public policy: /Reproductive Hx- director public policy Hx Now No 05/16/25 10:40 Gestational Age (in weeks): EDC: Hx Hx Para Hx Section SAB No 05/16/25 10:40 Active Medications Active Medications: Current Medications Generic Name Dose Route Start Last Admin Trade Name Freq PRN Reason Stop Dose Admin Acetaminophen 1,000 mg 05/23/25 07:30 05/23/25 06:18 Acetaminophen 500 Mg Tablet PO 05/23/25 07:31 1,000 mg PREOP ONE Administration Cefazolin Sodium 2 gm/ Sodium 110 mls @ 150 mls/hr 05/23/25 07:30 Chloride IV 05/23/25 08:13 INTRAOP ONE Tranexamic Acid 1,000 mg/ 110 mls @ 440 mls/hr 05/23/25 07:30 Sodium Chloride IV 05/23/25 07:44 INTRAOP ONE Tranexamic Acid 1,000 mg/ 110 mls @ 440 mls/hr 05/23/25 07:30 Sodium Chloride IV 05/23/25 07:44 INTRAOP ONE Magnesium Sulfate 1 gm/ 102 mls @ 408 mls/hr 05/23/25 07:30 05/23/25 06:31 Dextrose IV 05/23/25 07:44 408 mls/hr PREOP ONE Administration Lactated Ringer's 1,000 mls @ 15 mls/hr 05/23/25 05:45 05/23/25 06:30 IV 15 mls/hr .Q48H ROULA Administration Insulin Human Lispro 1 - 6 unit 05/23/25 07:30 Insulin Lispro 100 Unit/Ml Insuln.Pen SC 05/23/25 18:00 Q4H PRN PRN BG>/= 180, SEE PROTOCOL Protocol PFSH Medical History Ambulates with cane High cholesterol Gastric reflux [...] Cardiomyopathy in disease classified elsewhere Home Medications ?Medication ?Instructions ?Recorded ?Last Taken ?Type alprazolam 0.5 mg tablet 0.5 mg PO QHS anxiety 05/22/25 History acetaminophen 500 mg tablet 1,000 mg PO DAILY PAIN 05/22/25 History (Tylenol Extra Strength) ipratropium bromide 21 mcg (0.03 2 spray intranasal DA PAULIE CONGESTION 09/23/23 05/23/25 05:00 History %) nasal spray metoprolol succinate 50 mg 50 mg PO BID HEART RATE #60 tabs 01/18/25 05/23/25 05:00 Rx tablet,extended release 24 hr apixaban 5 mg tablet (Eliquis) 5 mg PO BID BLOOD THINN ER #60 tabs 03/27/25 05/20/25 Rx cyclobenzaprine 10 mg tablet 10 mg PO TID PRN muscle s pasm #30 04/26/25 05/22/25 Rx tabs losartan 25 mg tablet 25 mg PO QHS HTN 05/10/25 History losartan 50 mg tablet 50 mg PO BID HTN 05/10/25 05:00 History meloxicam 15 mg tablet 15 mg PO .QOD INFLAMATION 05/16/25 History tramadol 50 mg tablet 50 mg PO TID PRN pain Unknown History rosuvastatin 20 mg tablet 20 mg PO QODAY HLD 05/16/25 05/21/25 History simethicone 250 mg capsule (Gas-X) 250 mg PO DAILY PRN abdominal 05/16/25 Unknown History distention Allergy/AdvReac Type Severity Reaction Status Date / Time diltiazem AdvReac Intermediate Facial Verified 05/23/25 06:04 flushing and fatigue prednisone AdvReac Mild Other Verified 05/23/25 06:04 carvedilol (From Coreg) AdvReac face Verified 05/23/25 06:04 tingling Family History Mother CAD (coronary artery disease) Father CAD (coronary artery disease) Brother Polycystic kidney disease Surgical History History of appendectomy History of colonoscopy Biventricular cardiac pacemaker in situ (07/13/15) History of herniorrhaphy History of carpal tunnel surgery of right wrist History of esophagogastroduodenoscopy (EGD) Social History Smoking Status: Never smoker alcohol intake: never substance use type: does not use caffeine: Yes Type: carbonated beverages and tea additional social history: Denies daily use of aspirin or ibuprofen. Review of Systems (Anesthesia) ROS Narrative System reviewed and no additional complaints, except as documented. 05/23/25 0658 primo RO> Date _ Kulwinder العراقي MD Cosigner Signature: Date CC: ~ Signed [id number] Procedure [facility] [address] [place] [address] Pacemaker Check Date of Service: 05/10/251642 MR#: [id number] Acct: [id number] Name: MOO HOROWITZ Rep #: [id number] : 1945 From: Sharon vazquez Age/Sex: 80/M [place] [facility] [place]: Signed Billing Codes PM Device Codes: 90331 PM Dev Prog Eval, Multi Assessment and Plan Assessment and Plan (1) Biventricular cardiac pacemaker in situ: Status: Chronic (2) Left bundle branch block (LBBB): Status: Chronic (3) Mobitz type II atrioventricular block: Status: Chronic (4) Atrial flutter: Status: Chronic Qualifiers: Atrial flutter type: unspecified Qualified Code(s): I48.92 - Unspecified atrial flutter 05/10/251643 > Date _ Sharon Damonignamira Signature: Date (if applicable) CC: ~ [facility]08-05-2025 Radiology Diagnostic study note [facility] Imaging Services [address] [place] [address] Spine Lumbar WITH Contrast MR#: [id number] Acct: [id number] Name: MOO HOROWITZ Rep #: [id number] : 1945 M 80 From: Jung Sanders MD PCP: Dr. Paul Mac MD Status: REG C BALDEMAR Study:Spine Lumbar WITH Contrast Date of Exam : 04/12/25 Exam# [id number] Ordering Dr: Jeri Barraza MD PROCEDURE: SPINE LUMBAR WITH CONTRAST [...] diffuse disc bulge. No central stenosis. Borderline bilateralexit foraminal narrowing. L2-3: Mild loss of disc height. Mild, diffuse disc bulge. No central stenosis. Borderline exit foraminal narrowing on the right. L3-4: Zwze-rm-zivmsblp loss of disc height. Vacuum disc phenomenon. Diffuse disc bulge. Borderline central stenosis at 10 mm AP. Minimal facet hypertrophy. Cmevu-knnflee-rjma-left exit foraminal narrowing. Correlate with L3 radiculopathy. [...] stenosis. Mild facet hypertrophy. Exit foraminal narrowing, nrgj-ohadydo-ddzh-right. Correlate with L5 radiculopathy. Sacrum: Mild degenerative changes of the SI joints. No fracture. CT/Spine Lumbar WITH Contrast IMPRESSION: 1. Multilevel degenerative disc disease outlined above. Postsurgical change L4/5. This region is associated with central stenosis. See above description. 2. Straightening of the normal lumbar lordosis. 25% height loss from anterior wedging at T12 and L1. Reading Location: [facility] CC: Dr. Paul Mac MD; Dr. Shalom Barraza MD ~ Rental Counter Clerk: Signed [facility]07-30-2025 Radiology Diagnostic study note [facility] Imaging Services [address] [place] [id number] Lumbar Myelogram MR#: [id number] Acct: [id number] Name: MOO HOROWITZ Rep #: [id number] : 1945 M 80 From: Angel Correa MD PCP: Dr. Paul Mac MD Status: REG C LI Study:Lumbar Myelogram Date of Exam: Exam# [id number] Ordering Dr: Jeri Barraza MD PROCEDURE: LUMBAR MYELOGRAM 04/12/2025 REASON [...] narrowing of the L3-L4 level. Reading Location: [place] [address] CC: Dr. Paul Mac MD; Dr. Shalom Barraza MD ~ Rental Counter Clerk: Signed [facility]07-03-2025 Evaluation note* Diagnosis Onset Date Resolution Status Admit Date Degenerative disc disease (DDD) of lumbar region [...] with neurogenic claudication acute April 152024 1:09pm [facility] Work Phone: [phone] Evaluation note* Diagnosis Onset Date Resolution Status Admit Date Degenerative disc disease (DDD) of lumbar region [...] 2025 2:49pm Essential (primary) hypertension chronic May 10 2:49pm Degenerative disc disease (DDD) of lumbar region with discogenic back pain acute April 1:09pm Foot drop, left acute May 122024 1:09pm Lumbar stenosis with neurogenic claudication acute April 152024 1:09pm Lumbar stenosis with neurogenic claudication acute 2024 12:04pm Biventricular cardiac pacemaker in situ July 13, 2015 chronic May 24, 2025 11:49am Left bundle branch block (LBBB) chronic May 24, 2025 11:49am Mobitz type II atrioventricular block chronic May 24, 2025 11:49am [facility] Work Phone: 1(151) 581-393607-03-2025 Evaluation note* Diagnosis Onset Date Resolution Status Admit Date Degenerative disc disease (DDD) of lumbar region with discogenic back pain acute March 16, 2 025 2:11pm Foot drop, left noneactive March 16, 2025 2:11pm Degenerative disc disease (DDD) of lumbar region with discogenic back pain acute April 17, 2025 1:16pm Foot drop, left acute April 1:16pm Lumbar stenosis with neurogenic claudication resolved April 172024 1:16pm Atrial flutter chronic April [...] 2025 2:49pm Essential (primary) hypertension chronic May 10 2:49pm Degenerative disc disease (DDD) of lumbar region with discogenic back pain acute April 1:09pm Foot drop, left acute May 122024 1:09pm Lumbar stenosis with neurogenic claudication resolved April 152024 1:09pm Lumbar stenosis with neurogenic claudication resolved 2024 12:04pm Biventricular cardiac pacemaker in situ July 13, 2015 chronic May 24, 2025 11:49am Left bundle branch block (LBBB) chronic May 24, 2025 11:49am Mobitz type II atrioventricular block chronic May 24, 2025 11:49am Status post lumbar spinal fusion acute June 06, 2025 1:57pm Status post lumbar spinal fusion acute June 13, 2025 2:28pm Unspecified contact dermatitis due to other agents acute June 13, 2025 2:28pm [facility] Work Phone: 1(223) 670-660607-03-2025 Evaluation note* Diagnosis Onset Date Resolution Status Admit Date Degenerative disc disease (DDD) of lumbar region with discogenic back pain acute March 16, 2:11pm Foot drop, left noneactive March 16, 2025 2:11pm Degenerative disc disease (DDD) of lumbar region with discogenic back pain acute April 17, 2025 1:16pm Foot drop, left acute April 1:16pm Lumbar stenosis with neurogenic claudication resolved April 172024 1:16pm Atrial flutter chronic April [...] 2025 2:49pm Essential (primary) hypertension chronic May 10 2:49pm Degenerative disc disease (DDD) of lumbar region with discogenic back pain acute April 1:09pm Foot drop, left acute May 122024 1:09pm Lumbar stenosis with neurogenic claudication resolved April 152024 1:09pm Lumbar stenosis with neurogenic claudication resolved Mayemb2024 12:04pm Biventricular cardiac pacemaker in situ July 13, 2015 chronic May 24, 2025 11:49am Left bundle branch block (LBBB) chronic May 24, 2025 11:49am Mobitz type II atrioventricular block chronic May 24, 2025 11:49am Status post lumbar spinal fusion acute June 06, 2025 1:57pm Status post lumbar spinal fusion acute June 13, 2025 2:28pm Unspecified contact dermatitis due to other agents acute June 13, 2025 2:28pm Status post lumbar spinal fusion acute June 20 2:01pm Unspecified contact dermatitis due to other agents acute June 20 2:01pm [facility] Work Phone: 1(287) 780-232205-07-2025 Evaluation note* Diagnosis Onset Date Resolution Status [...] (primary) hypertension chronic January 18, 2025 10:41am [facility] Work Phone: 1(195) 258-606805-07-2025 Evaluation note* Diagnosis Onset Date Resolution Status [...] drop, left noneactive March 16, 2025 2:11pm [facility] Work Phone: 1(132) 443-815705-07-2025 Evaluation note* Diagnosis Onset Date Resolution Status Admit Date Non-sustained ventricular tachycardia acute January 18, 2025 10:39am Biventricular cardiac pacemaker in situ July 13, 2015 chronic January 18 10:39am Left bundle branch block (LBBB) chronic January 18, 2025 10:39am Mobitz type II atrioventricular block chronic January 18, 2025 10:39am Atrial flutter chronic January 18 10:41am Biventricular cardiac pacemaker in situ July 13, 2015January 18 10:41am Essential (primary) hypertension chronic January [...] claudication acute April 172024 1:16pm [facility] Work Phone: 1(665) 483-817105-07-2025 Evaluation note* Diagnosis Onset Date Resolution Status Admit Date Non-sustained ventricular tachycardia acute January 18, 2025 10:39am Biventricular cardiac pacemaker in situ July 13, 2015January 18 10:39am Left bundle branch block (LBBB) chronic January 18, 2025 10:39am Mobitz type II atrioventricular block chronic January 18, 2025 10:39am Atrial flutter chronic January 18 10:41am Biventricular cardiac pacemaker in situ July 13, 2015January 18 10:41am Essential (primary) hypertension chronic January [...] Biventricular cardiac pacemaker in situ July 13, 2015April 2:49pm Essential (primary) hypertension chronic May 10 2:49pm [facility] Work Phone: 1(159) 453-162105-07-2025 Evaluation note* Diagnosis Onset Date Resolution Status [...] Biventricular cardiac pacemaker in situ July 13, 2015April 2:48pm Left bundle branch block (LBBB) chronic May 10 2:48pm Mobitz type II atrioventricular block chronic May 102024 2:48pm Atrial flutter chronic April 2:49pm Biventricular cardiac pacemaker in situ July 13, 2015 chronic April 2:49pm Essential (primary) hypertension chronic May 10 2:49pm [facility] Work Phone: 1(447) 674-119305-07-2025 Evaluation note* Diagnosis Onset Date Resolution Status [...] Essential (primary) hypertension chronic May 10 2:49pm [facility] Work Phone: 1(756) 296-241205-07-2025 Evaluation note* Diagnosis Onset Date Resolution Status [...] claudication acute April 152024 1:09pm [facility] Work Phone: 1(233) 921-531301-29-2025 Evaluation note* Diagnosis Onset Date Resolution Status Admit Date Pedal edema acute October 12, 2024 1:18pm LORI (obstructive sleep apnea) chroni c October 12, 2024 1:18pm [facility] Work Phone: 1(649) 518-326501-29-2025 Evaluation note* Diagnosis Onset Date Resolution Status [...] (primary) hypertension chronic January 18, 2025 10:41am [facility] Work Phone: 1(416) 389-157503-18-2024 History and physical note Author Richie Tan [facility] November 30, 2023 9:29am Note Date/Time November 30, 2023 9:2 9am [facility] Medical Records Department [address] [place] [id number] History & Physical Exam 11/30/23 0929 MR#: [id number] Acct: [id number] Name: MOO HOROWITZ Rep #:[id number] : 1945 78 From: Richie Tan MD PCP: Dr. 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 Paul Mac MD; Dr. Richie Tan MD~ Signed [facility] Work Phone: 1(167) 332-656803-18-2024 Procedure [facility] 11-30-2023 Procedure [facility]11-15-2023 History and physical note Author Donald Burt [facility] July 29, 2023 6:06pm Note Date/Time July 23, 2023 3 :01pm [facility] Medical Records Department [address] [place] [address] History & Physical Exam 07/23/23 1458 MR#: [id number] Acct: [id number] Name: MOO HOROWITZ Rep #:[id number] : 1945 78 From: Donald Burt MD PCP: Dr. 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 His [id number]- VASc score of 3 (age +2, HTN). We will continue to follow duration and frequency through device checks. He will continue with verapamil for rate control. He will continue with Eliquis for CVA protection. 07/29/23 5286 <Electronically signed by Donald Burt MD> Cosigner Signature (if applicable): 07/23/23 1501 <Electronically signed by Joaquin Ramirez NP SECURITY SYSTEMS TECHNICIAN-C> CC: HONEY Ramirez; Dr. Donald Burt MD; Dr. Paul Mac MD~ Signed [facility] Work Phone: 1(685) 315-892506-27-2022 NoteHNO ID: [id number] Author: Conor Weaver PT Service: ? Author [...] Patient to be seen for Therapeutic exercise (40875);Neuromuscular re-education (53105);Manual therapy (62230);Therapeutic activities (83284);Self-senior living management (23308);Patient/Family/Caregiver Education;Body Mechanics Training SUBJECTIVE: Patient Reason for [...] Minutes: 10 Total Juanita (more content not included)...[facility]06-27-2022 History of Present illness Narrative* Conor Weaver, [...] Patient to be seen for Therapeutic exercise (59317);Neuromuscular re-education (57824);Manual therapy (40851);Therapeutic activities (21745);Self-senior living management (98160);Patient/Family/CaregiverEducation;Body Mechanics Training SUBJECTIVE: Patient Reason for Visit: [...] 49 Conor Weaver PT [facility] NoteHNO ID: [id number] Author: Conor Weaver PT Service: ? Author [...] toward set goals. PLAN FOR NEXT VISIT: [place] SUBJECTIVE: Patient Reason for Visit: Pt feels [...] 10 Total Treatment Time Minutes (timed/untimed): 40 [facility] of Present illness Narrative* Conor Weaver PT - 03/03/2022 1:36 PM EDT Episode [...] toward set goals. PLAN FOR NEXT VISIT: [place] SUBJECTIVE: Patient Reason for Visit: Pt feels [...] 41 Conor Weaver PT [facility]22 NoteHNO ID: [id number] Author: Conor Weaver PT Service: ? Author [...] Planned: 8 Planned Treatment Interventions: Therapeutic exercise (65471);Neuromuscular re-education (10867);Manual therapy (37900);Therapeutic activities (35594);Self-senior living management (68752);Patient/Family/Caregiver Education;Body Mechanics Training PLAN FOR NEXT VISIT: [...] PT Treatment Interventions: Thera (more content not included)...[facility]06-02-2022 History of Present illness Narrative* Conor Weaver, [...] Planned: 8 Planned Treatment Interventions: Therapeutic exercise (30351);Neuromuscular re- education (63673);Manual therapy (70467);Therapeutic activities (22550);Self- senior living management (80942);Patient/Family/Caregiver Education;Body Mechanics Training PLAN FOR NEXT VISIT: [...] 46 Conor Weaver PT [facility] Evaluation note* Diagnosis Onset Date Resolution Status Atrial flutter acute Encounter for pre-operative cardiovascular clearance acute Biventricular cardiac pacemaker in situ July 13, 2015 chronic Essential (primary) hypertension chronic Non-sustained ventricular tachycardia acute Biventricular cardiac pacemaker in situ July 13, 2015 chronic Left bundle branch block (LBBB) chronic Mobitz type II atrioventricular block chronic Sinus bradycardia [facility] Work Phone: 1(884) 819-658410-30-2015 Evaluation note* Diagnosis Onset Date Resolution Status Atrial flutter acute Non-sustained ventricular tachycardia acute Biventricular cardiac pacemaker in situ July 13, 2015 chronic Left bundle branch block (LBBB) chronic Mobitz type II atrioventricular block chronic Atrial flutter acute Biventricular cardiac pacemaker in situ July 13, 2015 chronic Essential (primary) hypertension [facility] Work Phone: 1(108) 927-174410-30-2015 Evaluation note* Diagnosis Onset Date Resolution Status Non-sustained ventricular tachycardia acute Atrial flutter chronic Biventricular cardiac pacemaker in situ July 13, 2015 chronic Left bundle branch block (LBBB) chronic Mobitz type II atrioventricular block chronic Sinus bradycardia chronic Atrial flutter chronic Biventricular cardiac pacemaker in situ July 13, 2015 chronic Essential (primary) hypertension [facility] Work Phone: 1([phone]) 208-797410-30-2015 Evaluation note* Diagnosis Onset Date Resolution Status [...] 13, 2015 chronic Essential (primary) hypertension chronic [facility] Work Phone: [phone]) 105-293710-30-2015 Evaluation note* Diagnosis Onset Date Resolution Status [...] LORI (obstructive sleep apnea) chronic [facility] Work Phone: Evaluation note* Diagnosis Chronic left-sided low back pain with left-sided sciatica- Primary [facility] Diagnosis Chronic left-sided low back pain with left-sided sciatica- Primary [facility]* Diagnosis Chronic left-sided low back pain with left-sided sciatica- Primary [facility] this encounter [facility]* Diagnosis Onset Date Resolution Status Carotid artery disease acute Peripheral vascular disease acute [facility] Work Phone: Evaluation note* Diagnosis Onset Date [...] acute Lower back pain acute [facility] Work Phone: Evaluation note* Diagnosis Onset Date [...] block chronic Sinus bradycardia chronic [facility] Work Phone: Hospital Discharge instructionsAdditional Instructions Keep Tegaderm and gauze clean and dry. If Tegaderm is intact, okay to shower. After 5 days remove Tegaderm and gauze and cover with a Band-Aid. Replace Band-Aid daily thereafter. No bending lifting or twisting. Follow-up in clinic in 2 weeks.[facility] Work Phone: Hospital Discharge instructionsAmbulatory Orders* Physical Therapy Referral Location: None Selected [facility] Work Phone: Reason for referral (narrative)No reason for referral information availableWRegency Hospital Company Work Phone: Summary Purpose Family History No Family History Records Found Relationship Condition Age at Onset Recorded Date/T junaid mother Coronary artery disease Unknown father Coronary artery disease Unknown brother Congenital polycystic kidney Unknown Advance Directives No Advanced Directives Records Found Advance Directive Response Recorded Date/ Time Advance Directives Yes December 06, 016 2:06pm Living Will No November 11 12:51pm Power of Sales Hunter Yes November 11, 2021 12:51pm Advance Directive Response Recorded Date/ Time Advance Directives Yes May 1:38pm Living Will No June 03, 2022 1:38pm Power of Sales Hunter Yes May 1:38pm Advance Directive Response Recorded Date/ Time Advance Directives Yes May 12:38pm Living Will No June 03, 2022 12:38pm Power of Sales Hunter Yes May 12:38pm Advance Directive Response Recorded Date/ Time Advance Directives on File Yes 2022 10:51am Name of Medical Power of Sales Hunter Alan duff August 17, 2023 10:51am Advance Directives Yes August 17, 2023 10:51am Living Will Yes August 17 10:51am Power of Sales Hunter Yes August 17, 2023 10:51am Advance Directive Response Recorded Date/ Time Advance Directives on File Yes Dece2022 11:51am Name of Medical Power of Sales Hunter Alan reid e August 17, 2023 11:51am Name of Medical Power of Sales Hunter ALAN HOROWITZ November 27, 2023 2:53pm Advance Directives Yes August 17, 2023 11:51am Living Will Yes November 27, 2023 2:53pm Power of Sales Hunter Yes November 26 2:53pm Advance Directive Response Recorded Date/ Time Living Will Yes August 17 11:51am Do you have a Healthcare Power of Sales Hunter? Yes August 17, 2023 11:51am Advance Directives Yes August 17, 2023 11:51am Advance Directive Response Recorded Date/ Time Advance Directives Yes August 17, 2023 11:51am Advance Directive Response Recorded Date/ Time Do you have a Healthcare Power of Sales Hunter? Yes May 23, 2025 2:00pm Advance Directives Yes August 17, 2023 11:51am Chief Complaint and Reason for Visit Chief Complaint LSP A/P LAT STANDING LUMBAR STENOSIS NECK PAIN, GENERAL FATIGUE 9 m fu (MOVED FROM 12/19) 3 mos remote MANUFACTURING LEAD-P f/u SCREENING Reason for Visit Atrial flutter [...] Sinus bradycardia Chief Complaint 3 mos remote MANUFACTURING LEAD-P f /u approaching RICHAR 6 m fu Reason for Visit Atrial flutter Non-sustained ventricular tachycardia Biventricular cardiac pacemaker in situ Left bundle branch block (LBBB) Mobitz type II atrioventricular block Atrial flutter Biventricular cardiac pacemaker in situ Essential (primary) hypertension Chief Complaint HEP C MANUFACTURING LEAD-P approaching RICHAR UPDATE H & P Reason for Visit Non-sustained ventri cular tachycardia Atrial flutter Biventricular cardiac pacemaker in situ Left bundle branch block (LBBB) Mobitz type II atrioventricular block Sinus bradycardia Atrial flutter Biventricular cardiac pacemaker in situ Essential (primary) hypertension Chief Complaint remote PPM f/u HEP C MANUFACTURING LEAD-P approaching RICHAR UPDATE H & P NORMAL [...] 2025 1 0:39am 6 M FU/ESTEFANÍA @ 10:January 18, 2025 10:41a m Pacer Check Remote [...] 152024 2:48pm Mobitz type II atrioventricular block [facility] 2024 2:48pm Preoperative cardiovascular examination May [...] 152024 2:48pm Mobitz type II atrioventricular block [facility] 2024 2:48pm Preoperative cardiovascular examination May [...] 152024 2:48pm Mobitz type II atrioventricular block [facility] 2024 2:48pm Preoperative cardiovascular examination May [...] @ 3:30 May 10, 2025 2:48pm Surgical Clearance/Seejeri Estefanía @ 3 April 152024 2:49pm lumbar spine May 12, 2025 1: 09pm ERAS, 360 Lumbar Fusion L4-5 May 232024 7:16am ERAS, 360 Lumbar Fusion L4-5 May 232024 12:04pm ERAS, 360 Lumbar Fusion L4-5 May 232024 2:35pm ERAS, 360 Lumbar Fusion L4-5 May 152024 9:18am With Spinal stimulator Rep for sx 2024 11:49am Reason for Visit Admit Date Degenerative disc [...] neurogenic claudica tion May 12, 2025 1:09pm Lumbar stenosis with neurogenic claudica tion May 23, 2025 12:04pm Biventricular cardiac pacemaker in situ May 24, 2025 11:49am Left bundle branch block (LBBB) Septembe r 2024 11:49am Mobitz type II atrioventricular block Se ptember 2024 11:49am Chief Complaint Admit Date Pacer Check Remote [...] lumbar spine May 12, 2025 1: 09pm ERAS, 360 Lumbar Fusion L4-5 May 232024 7:16am ERAS, 360 Lumbar Fusion L4-5 May 232024 12:04pm ERAS, 360 Lumbar Fusion L4-5 May 232024 2:35pm Pacer Check Remote May 24, 2025 9:00am ERAS, 360 Lumbar Fusion L4-5 May 152024 9:18am With Spinal stimulator Rep for sx Septem galo 2024 11:49am Pacer Check Remote May 26, 2025 3:43am Chief Complaint Admit Date Pacer Check Remote [...] lumbar spine May 12, 2025 1: 09pm ERAS, 360 Lumbar Fusion L4-5 May 232024 7:16am ERAS, 360 Lumbar Fusion L4-5 May 232024 12:04pm ERAS, 360 Lumbar Fusion L4-5 May 232024 2:35pm Pacer Check Remote May 24, 2025 9:00am ERAS, 360 Lumbar Fusion L4-5 May 152024 9:18am With Spinal stimulator Rep for sx Septem galo 2024 11:49am Pacer Check Remote May 26, 2025 3:43am lumbar spine June 06, 2025 1:57pm RM 2 June 06, 2025 2:12pm LUMBAR SPINE June 13, 2025 2:28pm Reason for Visit Admit Date Degenerative disc [...] 152024 2:48pm Mobitz type II atrioventricular block [facility] 2024 2:48pm Preoperative cardiovascular examination May [...] neurogenic claudica tion May 12, 2025 1:09pm Lumbar stenosis with neurogenic claudica tion May 23, 2025 12:04pm Biventricular cardiac pacemaker in situ May 24, 2025 11:49am Left bundle branch block (LBBB) Septembe r 2024 11:49am Mobitz type II atrioventricular block Se pt2024 11:49am Status post lumbar spinal fusion Septemb er 2024 1:57pm Status post lumbar spinal fusion Septemb er 2024 2:28pm Unspecified contact dermatitis due to ot her agents June 13, 2025 2:28pm Chief Complaint Admit Date Pacer Check Remote February 24, 2025 2:09 pm LUMBAR SPINE March 16, 2025 2:11p m Radiculopathy, lumbar region April 12, 2025 12:20pm LUMBAR SPINE April 17, 2025 1:1 6pm Pacer Check Remote May 10, 2025 9: 00am See Clinical Note/Sees JR @ 3:30 May 10, 2025 2:48pm Surgical Clearance/Sees Estefanía @ 3 April 152024 2:49pm lumbar spine May 12, 2025 1: 09pm ERAS, 360 Lumbar Fusion L4-5 May 232024 7:16am ERAS, 360 Lumbar Fusion L4-5 May 232024 12:04pm ERAS, 360 Lumbar Fusion L4-5 May 232024 2:35pm Pacer Check Remote May 24, 2025 9:00am ERAS, 360 Lumbar Fusion L4-5 May 152024 9:18am With Spinal stimulator Rep for sx Sept2024 11:49am Pacer Check Remote May 26, 2025 3:43am lumbar spine June 06, 2025 1:57pm RM 2 June 06, 2025 2:12pm LUMBAR SPINE June 13, 2025 2:28pm LUMBAR. RX HERE June 19, 2025 3: 30pm LUMBAR SPINE June 20, 2025 2: 01pm Reason for Visit Admit Date Degenerative disc [...] neurogenic claudica tion May 12, 2025 1:09pm Lumbar stenosis with neurogenic claudica tion May 23, 2025 12:04pm Biventricular cardiac pacemaker in situ May 24, 2025 11:49am Left bundle branch block (LBBB) Septembe r 2024 11:49am Mobitz type II atrioventricular block Se ptember 2024 11:49am Status post lumbar spinal fusion Septemb er 2024 1:57pm Status post lumbar spinal fusion Septemb er 2024 2:28pm Unspecified contact dermatitis due to ot her agents June 13, 2025 2:28pm Status post lumbar spinal fusion June 20, 2025 2:01pm Unspecified contact dermatitis due to ot her agents June 20, 2025 2:01pm Additional Source Comments (unrecognized sect ion and content) No Status Records FoundNo Status Records FoundNo Status Records FoundNo Status Records FoundNo Status Records Found INFORMATION SOURCE (unrecogn ized section and content) DATE CREATED AUTHOR 09/27/2019 [facility] ([place]) DATE CREATED AUTHOR AUTHOR'S ORGANIZ ATION 01/01/2021 [facility] DATE CREATED AUTHOR AUTHOR'S ORGANIZ ATION 02/01/2022 [facility] DATE CREATED AUTHOR AUTHOR'S ORGANIZ ATION 03/10/2022 [facility] DATE CREATED AUTHOR AUTHOR'S ORGANIZ ATION 07/04/2025 [facility] Goals (unrecognized section and content) Goals may [...] or prosecute any alcohol or drug abuse patient.[facility] the event this information is protected by the Federal Confidentiality of Alcohol and Drug Abuse Patient Records regulations: The Federal rules restrict any use of the information to criminally investigate or prosecute any alcohol or drug abuse patient.[facility] Hospital[facility] the event this information is protected by the Federal Confidentiality of Alcohol and Drug Abuse Patient Records regulations: The Federal rules restrict any use of the information to criminally investigate or prosecute any alcohol or drug abuse patient.[facility] Reason for Visit (unrecogniz ed section and content) Reason Comments PT Progress Note Specialty Diagnoses / Procedures Referred By Contac t Referred To Contact Physical Therapy / PHYSICAL THERAPY Diagnoses back pain Procedures NEW RS PT SPINE Self Owen, Conor, PT Referral ID Status Reason Start Date Expiration Date V isits Requested Visits Authorized [id number] Authorized 09/14/2021 09/13/2022 99 99 Reason Comments Physical Therapy Reason Comments PT Eval Care Teams (unrecognized sec tion and content) Senior Software Qa Engineer Relationship Specialty Start Date End Date Joaquin Grady MD PCP - General 03/04/05 Senior Software Qa Engineer Relationship Specialty Start Date End Date Joaquin Grady MD PCP - General 03/04/05 Senior Software Qa Engineer Relationship Specialty Start Date End Date Joaquin Grady MD PCP - General 03/04/05 Team Status: Active Member Role Status Dates Dr. Joaquin Melo MD Family Provider Active Dr. Paul Mac MD Primary Care Provider Active Team Status: Inactive Member Role Status Dates Dr. Paul Mac MD Primary Care Provider, Referring Provider Active Joaquin Ramirez SECURITY SYSTEMS TECHNICIAN, SECURITY SYSTEMS TECHNICIAN-C Attending Provider Active Team Status: Inactive Member [...] Donald Burt MD Active Joaquin Ramirez NP, SECURITY SYSTEMS TECHNICIAN-C Attending Provider Active Team Status: Inactive Member [...] 2024 End: October 12, 2024 Debbie Asher , SECURITY SYSTEMS TECHNICIAN-C Attending Provider Active Start: October 12, 2024 [...] Status: Inactive Member Role Status Dates Dr. Pual Mac MD Primary Care Provider Active Start: [...] Sharon Gunn Attending Provider Active Start: Nestor ug2024 Team Status: Inactive Member Role/Relationship Status Dates Dr. Paul Mac MD Primary Care Provider Active Start: May 10, 2025 End: May 10, 2025 Dr. Paul Mac MD Referring Provider Active Start: May 10, 2025 End: May 10, 2025 Joaquin H Roof SECURITY SYSTEMS TECHNICIAN, SECURITY SYSTEMS TECHNICIAN-C Attending Provider Active S tart: May 10, 2025 End: May 10, 2025 Team Status: Inactive Member Role/Relationship Status Dates Dr. Paul Mac MD Primary Care Provider Active Start: May 10, 2025 End: May 10, 2025 Dr. Paul Mac MD Referring Provider Active Start: May 10, 2025 End: May 10, 2025 Sharon Gunn Attending Provider Active Start: [facility]2024 End: May 10, 2025 Team [...] 2025 Sharon Gunn Attending Provider Active Start: A 2024 End: May 10, 2025 Team Status: Inactive Member Role/Relationship Status Dates Dr. Paul Mac MD Primary Care Provider Active Start: May 10, 2025 End: May 10, 2025 Dr. Paul Mac MD Referring Provider Active Start: May 10, 2025 End: May 10, 2025 Joaquin Ramirez SECURITY SYSTEMS TECHNICIAN, SECURITY SYSTEMS TECHNICIAN-C Attending Provider Active S tart: May 10, [...] Active Start: May 17, 2025 Team Status: Active Member Role/Relationship Status Dates Dr. Paul Mac MD Primary Care Provider Active Start: May 23, 2025 Dr. Johann Andrews MD Admit Provider Active Star t: May 23, 2025 Dr. Johann Andrews MD Attending Provider Active Start: May 23, 2025 Dr. Johann Andrews MD Referring Provider Active Start: May 23, 2025 Dr. Johann Andrews MD Other Provider Active Star t: May 23, 2025 Team Status: Inactive Member Role/Relationship Status Dates Dr. Paul Mac MD Primary Care Provider Active Start: May 23, 2025 End: May 24, 2025 Dr. Paul Mac MD Other Provider Active Star t: May 23, 2025 End: May 24, 2025 Dr. Johann Andrews MD Admit Provider Active Star t: May 23, 2025 End: May 24, 2025 Dr. Johann Andrews MD Attending Provider Active Start: May 23, 2025 End: May 24, 2025 Dr. Johann Andrews MD Referring Provider Active Start: May 23, 2025 End: May 24, 2025 Dr. Mayi Nur MD Other Provider Active St art: May 23, 2025 End: May 24, 2025 Dr. Hyun Alcantar MD Other Provider Active St art: May 23, 2025 End: May 24, 2025 Dr. Jose Hathaway , DO Other Provider Active Start: May 23, 2025 End: May 24, 2025 Dr. Jose Lopez MD Other Provider Active Star t: May 23, 2025 End: May 24, 2025 Dr. Juan Jose Jarvis , Other Provider Active Star t: May 23, 2025 End: May 24, 2025 Dr. Benjamin Stevens MD Other Provider Active Sta rt: May 23, 2025 End: May 24, 2025 Dr. Leeroy Justice MD Other Provider Active S tart: May 23, 2025 End: May 24, 2025 Dr. Margie Rasmussen , Other Provider Active Start : May 23, 2025 End: May 24, 2025 Dr. Micah Cosme , Other Provider Active S tart: May 23, 2025 End: May 24, 2025 Dr. Judith Monterroso MD Other Provider Active St art: May 23, 2025 End: May 24, 2025 Dr. Lino Kaminski MD Other Provider Active Start: May 23, 2025 End: May 24, 2025 Dr. Cesario Velázquez MD Other Provider Active Sta rt: May 23, 2025 End: May 24, 2025 Dr. Kristine Thompson MD Other Provider Active Star t: May 23, 2025 End: May 24, 2025 Dr. Zay López MD Other Provider Active S tart: May 23, 2025 End: May 24, 2025 HONEY Stearns Other Provider Active Start : May 23, 2025 End: May 24, 2025 ERICA Hoover Other Provider Active Start: May 23, 2025 End: May 24, 2025 Team Status: Active Member Role/Relationship Status Dates Dr. Paul Mac MD Primary Care Provider Active Start: May 23, 2025 Dr. Paul Mac MD Other Provider Active Star t: May 23, 2025 Dr. Johann Andrews MD Admit Provider Active Star t: May 23, 2025 Dr. Johann Andrews MD Referring Provider Active Start: May 23, 2025 Dr. Johann Andrews MD Other Provider Active Star t: May 23, 2025 Dr. Cuate Hawthorne , DO Attending Provider Active Start: May 23, 2025 Dr. Cuate Hawthorne , DO Other Provider Active Start: May 23, 2025 Dr. Mayi Nur MD Other Provider Active St art: May 23, 2025 Dr. Hyun Alcantar MD Other Provider Active St art: May 23, 2025 Dr. Jose Hathaway , DO Other Provider Active Start: May 23, 2025 Dr. Jose Lopez MD Other Provider Active Star t: May 23, 2025 Dr. Juan Jose Jarvis , DO Other Provider Active Star t: May 23, 2025 Dr. Benjamin Stevens MD Other Provider Active Sta rt: May 23, 2025 Dr. Leeroy Justice MD Other Provider Active S tart: May 23, 2025 Dr. Margie Rasmussen , Other Provider Active Start : May 23, 2025 Dr. Micah Cosme , DO Other Provider Active S tart: May 23, 2025 Dr. Judith Monterroso MD Other Provider Active St art: May 23, 2025 Dr. Lino Kaminski MD Other Provider Active Start: May 23, 2025 Dr. Cesario Velázquez MD Other Provider Active Sta rt: May 23, 2025 Dr. Kristine Thompson MD Other Provider Active Star t: May 23, 2025 Dr. Zay López MD Other Provider Active S tart: May 23, 2025 HONEY Stearns Other Provider Active Start : May 23, 2025 Krish MALDONADO PA Other Provider Active Start: May 23, 2025 Team Status: Active Member Role/Relationship Status Dates Dr. Paul Mac MD Primary Care Provider Active Start: May 24, 2025 Dr. Paul Mac MD Other Provider Active Star t: May 24, 2025 Dr. Johann Andrews MD Admit Provider Active Star t: May 24, 2025 Dr. Johann Andrews MD Referring Provider Active Start: May 24, 2025 Dr. Johann Andrews MD Other Provider Active Star t: May 24, 2025 Dr. Mayi Nur MD Other Provider Active St art: May 24, 2025 Dr. Hyun Alcantar MD Other Provider Active St art: May 24, 2025 Dr. Jose Hathaway , DO Other Provider Active Start: May 24, 2025 Dr. Jose Lopez MD Other Provider Active Star t: May 24, 2025 Dr. Juan Jose Jarvis , DO Other Provider Active Star t: May 24, 2025 Dr. Benjamin Stevens MD Other Provider Active Sta rt: May 24, 2025 Dr. Leeroy Justice MD Other Provider Active S tart: May 24, 2025 Dr. Margie Rasmussen , DO Other Provider Active Start : May 24, 2025 Dr. Micah Cosme , DO Other Provider Active S tart: May 24, 2025 Dr. Judith Monterroso MD Other Provider Active St art: May 24, 2025 Dr. Lino Kaminski MD Attending Provider Active Start: May 24, 2025 Dr. Lino Kaminski MD Other Provider Active Start: May 24, 2025 Dr. Cesario Velázquez MD Other Provider Active Sta rt: May 24, 2025 Dr. Kristine Thompson MD Other Provider Active Star t: May 24, 2025 Dr. Zay López MD Other Provider Active S tart: May 24, 2025 HONEY Stearns Other Provider Active Start : May 24, 2025 ERICA Hoover Other Provider Active Start: May 24, 2025 Team Status: Active Member Role/Relationship Status Dates Dr. Paul Mac MD Primary Care Provider Active Start: May 24, 2025 Dr. Paul Mac MD Referring Provider Active Start: May 24, 2025 Sharon Gunn Attending Provider Active Start: 2024 Team Status: Inactive Member Role/Relationship Status Dates Dr. Paul Mac MD Primary Care Provider Active Start: May 24, 2025 End: May 24, 2025 Dr. Paul Mac MD Referring Provider Active Start: May 24, 2025 End: May 24, 2025 Sharon Gunn Attending Provider Active Start: 2024 End: May 24, 2025 Team Status: Inactive Member Role/Relationship Status Dates Dr. Paul Mac MD Primary Care Provider Active Start: May 24, 2025 End: May 24, 2025 Dr. Donald Burt MD Attending Provider Active S tart: May 24, 2025 End: May 24, 2025 Team Status: Active Member Role/Relationship Status Dates Dr. Paul Mac MD Primary Care Provider Active Start: May 24, 2025 Dr. Paul Mac MD Other Provider Active Star t: May 24, 2025 Dr. Johann Andrews MD Admit Provider Active Star t: May 24, 2025 Dr. Johann Andrews MD Referring Provider Active Start: May 24, 2025 Dr. Johann Andrews MD Other Provider Active Star t: May 24, 2025 Dr. Mayi Nur MD Other Provider Active St art: May 24, 2025 Dr. Hyun Alcantar MD Other Provider Active St art: May 24, 2025 Dr. Jose Hathaway , DO Other Provider Active Start: May 24, 2025 Dr. Jose Lopez MD Other Provider Active Star t: May 24, 2025 Dr. Juan Jose Jarvis , Other Provider Active Star t: May 24, 2025 Dr. Benjamin Stevens MD Other Provider Active Sta rt: May 24, 2025 Dr. Leeroy Justice MD Other Provider Active S tart: May 24, 2025 Dr. Margie Rasmussen DO Other Provider Active Start : May 24, 2025 Dr. Micah Cosme , Other Provider Active S tart: May 24, 2025 Dr. Judith Monterroso MD Other Provider Active St art: May 24, 2025 Dr. Lino Kaminski MD Attending Provider Active Start: May 24, 2025 Dr. Lino Kaminski MD Other Provider Active Start: May 24, 2025 Dr. Cesario Velázquez MD Other Provider Active Sta rt: May 24, 2025 Dr. Kristine Thompson MD Other Provider Active Star t: May 24, 2025 Dr. Zay López MD Other Provider Active S tart: May 24, 2025 HONEY Stearns Other Provider Active Start : May 24, 2025 ERICA Hoover Other Provider Active Start: May 24, 2025 Team Status: Inactive Member Role/Relationship Status Dates Dr. Paul Mac MD Primary Care Provider Active Start: May 24, 2025 End: May 24, 2025 Dr. Paul Mac MD Referring Provider Active Start: May 24, 2025 End: May 24, 2025 Sharon Gunn Attending Provider Active Start: S fabricio 2024 End: May 24, 2025 Team Status: Inactive Member Role/Relationship Status Dates Dr. Paul Mac MD Primary Care Provider Active Start: May 26, 2025 End: May 26, 2025 Dr. Donald Burt MD Attending Provider Active S tart: May 26, 2025 End: May 26, 2025 Team Status: Active Member Role/Relationship Status Dates Dr. Paul Mac MD Primary care physician Active Team Status: Inactive Member Role/Relationship Status Dates Dr. Paul Mac MD Primary care physician Active Start: February 24, 2025 End: February 24, 2025 Dr. Donald Burt MD Attending physician Active Start: February 24, 2025 End: February 24, 2025 Dr. Donald Burt MD Referring Provider Active S tart: February 24, 2025 End: February 24, 2025 Team Status: Inactive Member Role/Relationship Status Dates Dr. Paul Mac MD Primary care physician Active Start: March 16, 2025 End: March 16, 2025 Dr. Paul Mac MD Referring Provider Active Start: March 16, 2025 End: March 16, 2025 ERICA Carvalho Attending physician Active Sta rt: March 16, 2025 End: March 16, 2025 Team Status: Inactive Member Role/Relationship Status Dates Dr. Paul Mac MD Primary care physician Active Start: April 12, 2025 End: April 12, 2025 Dr. Shalom Barraza MD Attending physician Active Start: April 12, 2025 End: April 12, 2025 Dr. Shalom Barraza MD Referring Provider Active Start: April 12, 2025 End: April 12, 2025 Team Status: Inactive Member Role/Relationship Status Dates Dr. Paul Mac MD Primary care physician Active Start: April 17, 2025 End: April 17, 2025 Dr. Paul Mac MD Referring Provider Active Start: April 17, 2025 End: April 17, 2025 ERICA Carvalho Attending physician Active Sta rt: April 17, 2025 End: April 17, 2025 Team Status: Inactive Member Role/Relationship Status Dates Dr. Paul Mac MD Primary care physician Active Start: May 10, 2025 End: May 10, 2025 Dr. Donald Burt MD Attending physician Active Start: May 10, 2025 End: May 10, 2025 Team Status: Inactive Member Role/Relationship Status Dates Dr. Paul Mac MD Primary care physician Active Start: May 10, 2025 End: May 10, 2025 Dr. Donald Burt MD Attending physician Active Start: May 10, 2025 End: May 10, 2025 Dr. Donald Burt MD Referring Provider Active S tart: May 10, 2025 End: May 10, 2025 Team Status: Inactive Member Role/Relationship Status Dates Dr. Paul Mac MD Primary care physician Active Start: May 10, 2025 End: May 10, 2025 Dr. Paul Mac MD Referring Provider Active Start: May 10, 2025 End: May 10, 2025 Joaquin Ramirez NP, [employer]ITY [employer] TECHNICIAN-C Attending physician Active Start: May 10, 2025 End: May 10, 2025 Team Status: Inactive Member Role/Relationship Status Dates Dr. Paul Mac MD Primary care physician Active Start: May 11, 2025 End: May 11, 2025 Dr. Paul Mac MD Attending physician Active Start: May 11, 2025 End: May 11, 2025 Dr. Paul Mac MD Referring Provider Active Start: May 11, 2025 End: May 11, 2025 Team Status: Inactive Member Role/Relationship Status Dates Dr. Paul Mac MD Primary care physician Active Start: May 12, 2025 End: May 12, 2025 Dr. Paul Mac MD Referring Provider Active Start: May 12, 2025 End: May 12, 2025 Dr. Johann Andrews MD Attending physician Active Start: May 12, 2025 End: May 12, 2025 Team Status: Active Member Role/Relationship Status Dates Dr. Paul Mac MD Primary care physician Active Start: May 17, 2025 Dr. Johann Andrews MD Attending physician Active Start: May 17, 2025 Team Status: Active Member Role/Relationship Status Dates Dr. Palu Mac MD Primary care physician Active Start: May 23, 2025 Dr. Johann Andrews MD Admitting physician Active Start: May 23, 2025 Dr. Johann Andrews MD Attending physician Active Start: May 23, 2025 Dr. Johann Andrews MD Referring Provider Active Start: May 23, 2025 Dr. Johann Andrews MD Nurse Practitioner Active Start: May 23, 2025 Team Status: Inactive Member Role/Relationship Status Dates Dr. Paul Mac MD Primary care physician Active Start: May 23, 2025 End: May 24, 2025 Dr. Paul Mac MD Nurse Practitioner Active Start: May 23, 2025 End: May 24, 2025 Dr. Johann Andrews MD Admitting physician Active Start: May 23, 2025 End: May 24, 2025 Dr. Johann Andrews MD Attending physician Active Start: May 23, 2025 End: May 24, 2025 Dr. Johann Andrews MD Referring Provider Active Start: May 23, 2025 End: May 24, 2025 Dr. Mayi Nur MD Nurse Practitioner Active Start: May 23, 2025 End: May 24, 2025 Dr. Hyun Alcantar MD Nurse Practitioner Active Start: May 23, 2025 End: May 24, 2025 Dr. Jose Hathaway , Nurse Practitioner Active Start: May 23, 2025 End: May 24, 2025 Dr. Jose Lopez MD Nurse Practitioner Active Start: May 23, 2025 End: May 24, 2025 Dr. Juan Jose Jarvis , Nurse Practitioner Active Start: May 23, 2025 End: May 24, 2025 Dr. Benjamin Stevens MD Nurse Practitioner Active Start: May 23, 2025 End: May 24, 2025 Dr. Leeroy Justice MD Nurse Practitioner Active Start: May 23, 2025 End: May 24, 2025 Dr. Margie Rasmussen DO Nurse Practitioner Active S tart: May 23, 2025 End: May 24, 2025 Dr. Micah Cosme DO Nurse Practitioner Active Start: May 23, 2025 End: May 24, 2025 Dr. Judith Monterroso MD Nurse Practitioner Active Start: May 23, 2025 End: May 24, 2025 Dr. Lino Kaminski MD Nurse Practitioner Active Start: May 23, 2025 End: May 24, 2025 Dr. Cesario Velázquez MD Nurse Practitioner Active Start: May 23, 2025 End: May 24, 2025 Dr. Kristine Thompson MD Nurse Practitioner Active Start: May 23, 2025 End: May 24, 2025 Dr. Zay López MD Nurse Practitioner Active Start: May 23, 2025 End: May 24, 2025 HONEY Stearns Nurse Practitioner Active S tart: May 23, 2025 End: May 24, 2025 ERICA Hoover Nurse Practitioner Active Sta rt: May 23, 2025 End: May 24, 2025 Team Status: Active Member Role/Relationship Status Dates Dr. Paul Mac MD Primary care physician Active Start: May 23, 2025 Dr. Paul Mac MD Nurse Practitioner Active Start: May 23, 2025 Dr. Johann Andrews MD Admitting physician Active Start: May 23, 2025 Dr. Johann Andrews MD Referring Provider Active Start: May 23, 2025 Dr. Johann Andrews MD Nurse Practitioner Active Start: May 23, 2025 Dr. Cuate Hawthorne , DO Attending physician Activ e Start: May 23, 2025 Dr. Cuate Hawthorne , DO Nurse Practitioner Active Start: May 23, 2025 Dr. Mayi Nur MD Nurse Practitioner Active Start: May 23, 2025 Dr. Hyun Alcantar MD Nurse Practitioner Active Start: May 23, 2025 Dr. Jose Hathaway , Nurse Practitioner Active Start: May 23, 2025 Dr. Jose Lopez MD Nurse Practitioner Active Start: May 23, 2025 Dr. Juan Jose Jarvis , DO Nurse Practitioner Active Start: May 23, 2025 Dr. Benjamin Stevens MD Nurse Practitioner Active Start: May 23, 2025 Dr. Leeroy Justice MD Nurse Practitioner Active Start: May 23, 2025 Dr. Margie Rasmussen , Nurse Practitioner Active S tart: May 23, 2025 Dr. Micah Cosme , Nurse Practitioner Active Start: May 23, 2025 Dr. Judith Monterroso MD Nurse Practitioner Active Start: May 23, 2025 Dr. Lino Kaminski MD Nurse Practitioner Active Start: May 23, 2025 Dr. Cesario Velázquez MD Nurse Practitioner Active Start: May 23, 2025 Dr. Kristine Thompson MD Nurse Practitioner Active Start: May 23, 2025 Dr. Zay López MD Nurse Practitioner Active Start: May 23, 2025 HONEY Stearns Nurse Practitioner Active S tart: May 23, 2025 ERICA Hoover Nurse Practitioner Active Sta rt: May 23, 2025 Team Status: Inactive Member Role/Relationship Status Dates Dr. Paul Mac MD Primary care physician Active Start: May 24, 2025 End: May 24, 2025 Dr. Donald Burt MD Attending physician Active Start: May 24, 2025 End: May 24, 2025 Team Status: Active Member Role/Relationship Status Dates Dr. Paul Mac MD Primary care physician Active Start: May 24, 2025 Dr. Paul Mac MD Nurse Practitioner Active Start: May 24, 2025 Dr. Johann Andrews MD Admitting physician Active Start: May 24, 2025 Dr. Johann Andrews MD Nurse Practitioner Active Start: May 24, 2025 Dr. Mayi Nur MD Nurse Practitioner Active Start: May 24, 2025 Dr. Hyun Alcantar MD Nurse Practitioner Active Start: May 24, 2025 Dr. Jose Hathaway , DO Nurse Practitioner Active Start: May 24, 2025 Dr. Jose Lopez MD Nurse Practitioner Active Start: May 24, 2025 Dr. Juan Jose Jarvis , DO Nurse Practitioner Active Start: May 24, 2025 Dr. Benjamin Stevens MD Nurse Practitioner Active Start: May 24, 2025 Dr. Leeroy Justice MD Nurse Practitioner Active Start: May 24, 2025 Dr. Margie Rasmussen , DO Nurse Practitioner Active S tart: May 24, 2025 Dr. Micah Cosme , Nurse Practitioner Active Start: May 24, 2025 Dr. Judith Monterroso MD Nurse Practitioner Active Start: May 24, 2025 Dr. Lino Kaminski MD Attending physician Activ e Start: May 24, 2025 Dr. Lino Kaminski MD Nurse Practitioner Active Start: May 24, 2025 Dr. Cesario Velázquez MD Nurse Practitioner Active Start: May 24, 2025 Dr. Kristine Thompson MD Nurse Practitioner Active Start: May 24, 2025 Dr. Zay López MD Nurse Practitioner Active Start: May 24, 2025 HONEY Stearns Nurse Practitioner Active S tart: May 24, 2025 ERICA Hoover Nurse Practitioner Active Sta rt: May 24, 2025 Team Status: Inactive Member Role/Relationship Status Dates Dr. Paul Mac MD Primary care physician Active Start: May 24, 2025 End: May 24, 2025 Dr. Paul Mac MD Referring Provider Active Start: May 24, 2025 End: May 24, 2025 Sharon Gunn Attending physician Active Start: May 24, 2025 End: May 24, 2025 Team Status: Inactive Member Role/Relationship Status Dates Dr. Paul Mac MD Primary care physician Active Start: May 26, 2025 End: May 26, 2025 Dr. Donald Burt MD Attending physician Active Start: May 26, 2025 End: May 26, 2025 Team Status: Inactive Member Role/Relationship Status Dates Dr. Paul Mac MD Primary care physician Active Start: June 06, 2025 End: June 06, 2025 Dr. Paul Mac MD Referring Provider Active Start: June 06, 2025 End: June 06, 2025 ERICA Carvalho Attending physician Active Sta rt: June 06, 2025 End: June 06, 2025 Team Status: Inactive Member Role/Relationship Status Dates Dr. Paul Mac MD Primary care physician Active Start: June 06, 2025 End: June 06, 2025 Dr. Donald Burt MD Attending physician Active Start: June 06, 2025 End: June 06, 2025 Team Status: Inactive Member Role/Relationship Status Dates Dr. Paul Mac MD Primary care physician Active Start: June 13, 2025 End: June 13, 2025 Dr. Paul Mac MD Referring Provider Active Start: June 13, 2025 End: June 13, 2025 HONEY Medellin Attending physician Active Start: June 13, 2025 End: June 13, 2025 Team Status: Inactive Member Role/Relationship Status Dates Dr. Paul Mac MD Primary care physician Active Start: May 24, 2025 End: May 24, 2025 Dr. Donald Burt MD Attending physician Active Start: May 24, 2025 End: May 24, 2025 Dr. Donald Burt MD Referring Provider Active S tart: May 24, 2025 End: May 24, 2025 Team Status: Inactive Member Role/Relationship Status Dates Dr. Paul Mac MD Primary care physician Active Start: May 26, 2025 End: May 26, 2025 Dr. Donald Burt MD Attending physician Active Start: May 26, 2025 End: May 26, 2025 Dr. Donald Burt MD Referring Provider Active S tart: May 26, 2025 End: May 26, 2025 Team Status: Active Member Role/Relationship Status Dates Dr. Paul Mac MD Primary care physician Active Start: June 19, 2025 ERICA Carvalho Attending physician Active Sta rt: June 19, 2025 ERICA Carvalho Referring Provider Active Star t: June 19, 2025 Team Status: Inactive Member Role/Relationship Status Dates Dr. Paul Mac MD Primary care physician Active Start: June 20, 2025 End: June 20, 2025 Dr. Pual Mac MD Referring Provider Active Start: June 20, 2025 End: June 20, 2025 HONEY Med[place]in Attending physician Active Start: June 20, 2025 End: June 20, 2025 FOR RECORDS PERTAINING TO PATIENTS WHO [...] BE BASED ON THE PRIMARY CLINICAL RECORDS. [employer] provides no warranty or guarantee of the accuracy or completeness of information in this document.
== END | disposition home or self-care (01) ==
PROVIDERS: PCP Family Medicine; Referring Provider Student in an Organized Health Care Education/Training Program; Visit Provider Student in an Organized Health Care Education/Training Program
DX: Z98.1 Arthrodesis status (principal)
CPT/HCPCS: 72100